=== PATIENT | female | born 1945 | race Caucasian/White ===

== ENCOUNTER 2016-10-26 12:58 | Emergency (ER) | payer MEDICARE, OTHER ==
[~2016-10-26] VITALS: Ht 162.6 cm; Wt 61.7 kg
[~2016-10-26 12:58] MED LIST: ACHD5005 PO; AGM875T PO; ALBU17AE3; ALBU8.5HRX IH; AMOX500C2 PO; ATEN50TA; Amlodipine Besylate PO; BUDE10.22 IH; BUDE180A IH; BUDE1AMP IH; CEFD300C3 PO; DARI7.5T8; DARI7.5T8 PO; DOXY-233 PO; DOXY100C2 PO; FLT22013 INH; HCT25T; HYDR-3720 PO; HYDR-757 PO; HYDR1CAP PO; IBUP-15; IBUP-30 PO; KCL10CCR; LEVA1.25 IH; LEVA1.2516; LEVA1.256 IH; LORA0.5T; LORA1TAB PO; LRT10T; METH4TAB PO; METO-272 PO; METO50TA2 PO; METO50TA7 PO; MONT10TA21 PO; MTP50T PO; ONDA8TAB9 PO; ONDAN4ODT PO; ONDN4T PO; POTA10CA43 PO; PRD10T PO; PRD20T PO; PRD5T; RT-ALBUINH; RT-ALBUINH IH; SULF1TAB38 PO; TIOT18CA; TIOT18CA INH; TRIA16.5 NS; VERA180C2 PO
--- OUTSIDE RECORDS SUMMARY | 2016-10-26 13:03 | XMS REPORT | Continuity of Care Document ---
Author Author [facility] Organization [facility] Address Unknown Phone Unavailable Care Team Providers Care Black Topper Name Role Phone Sylwia Michael PCP [phone] Source Comments Some departments are not documenting in the electronic medical record. If you do not see the information that you expected, contact Release of Information in the Health Information Management department at [phone] for further assistance in locating additional records.[facility] Active Allergies and Adverse Reactions Allergen Noted Date Severity Reactions Comments Codeine 01/23/2010 Current Medications Prescription Sig. Disp. Refills Start End Date Status Date METOPROLOL TARTRATE PO Take by mouth. Active LISINOPRIL PO Take by mouth. Active ALBUTEROL SULFATE (PROAIR Inhale by mouth. Active HFA IN) CLONIDINE HCL (CLONIDINE Take by mouth. Active PO) LEVALBUTEROL HCL (XOPENEX Inhale by mouth. Active IN) Active Problems Not on file Social History Tobacco Use Types Packs/Day Years Used Date Never Smoker Alcohol Use Drinks/Week oz/Week Comments No Last Filed Vital Signs Vital Sign Reading Time Taken Blood Pressure 154/81 01/23/2010 8:16 PM CDT Pulse 68 01/23/2010 8:16 PM CDT Temperature 36.3 C (97.3 F) 01/23/2010 6:42 PM CDT Respiratory Rate - - Height - - Weight - - Body Mass Index - - Oxygen Saturation 100% 01/23/2010 8:16 PM CDT Plan of Care Health Maintenance Due Date Last Done Comments Physical (Comprehensive) 1952 Exam Pertussis Vaccine 1956 Tetanus Vaccine 1962 Breast Cancer Screening 1985 Colorectal Cancer 1995 Screening Shingles Vaccine 2005 Osteoporosis Screening 2010 Prevnar/Pneumovax (#1) 2010 Influenza Vaccine 05/23/2016 Results from Last 3 Months Not on file
--- NOTE | 2016-10-26 13:36 | ED Cough/URI ---
General Chief Complaint: Cough/Cold/Flu Symptoms Stated Complaint: SOB/BODY ACHES Nursing Triage Note: PT STATES SHE HAS HAD BODY ACHES, NAUSEA, HEADACHE AND FATIGUE FOR ABOUT 1 WEEK. DENIES COUGH OR SOA. Source: patient Exam Limitations: no limitations History of Present Illness Time seen by provider: 13:34 Initial Comments This 71-year-old white female presents with a complaint of myalgias, nausea, headache, fatigue, and general malaise for the past week. Patient has a history of asthma. She has had no significant productive cough or shortness of breath. The patient relates that she has had similar episodes in past secondary to hypokalemia and to a urinary tract infection. The patient denies significant vomiting, diarrhea, change in medication, associated dysuria, frequency, or flank pain. Allergies and Home Medications Allergies Coded Allergies: codeine (Verified Allergy, Unknown, 03/23/08) gatifloxacin (Verified Allergy, Unknown, 03/23/08) nitrofurantoin (Verified Allergy, Unknown, 03/23/08) Home Medications 5 MG TAB #30 5 MG PO DAILY Prescribed by: ESTER MICHAEL on 10/24/14 0723 Albuterol Sulfate 8 Gm Hfa.aer.ad 2 PUFF IH QID PRN PRN SHORTNESS OF BREATH ( Reported) Albuterol Sulfate 18 Gm Hfa.aer.ad #8 (Reported) Amoxicillin 500 Mg Capsule #30 500 MG PO TID Prescribed by: ASHTYN ZHANG on 05/24/15 2141 Budesonide 180 Mcg Aer.pow.ba #1 180 MCG IH BID Prescribed by: RYAN PARDO on 08/04/15 1219 Budesonide 1 Mg/2 Ml Ampul.neb #1 1 MG IH BID Prescribed by: AZRA MCWILLIAMS on 12/11/15 0420 Cefdinir 300 Mg Capsule #20 300 MG PO BID Prescribed by: AZRA MCWILLIAMS on 12/11/15 0419 Hydrocodone Bit/Acetaminophen 1 Each Tablet 1 TAB PO Q6H PRN PRN PAIN (Reported ) Hydrocodone/Acetaminophen 1 Each Tablet #10 1 EACH PO Q4H Prescribed by: RYAN PARDO on 07/18/15 1303 Ibuprofen 200 Mg Tablet 600 MG PO BID PRN PRN PAIN (Reported) Levalbuterol HCl 1.25 Mg/3 Ml Vial.neb #216 (Reported) Levalbuterol Hcl 1.25 Mg/0.5 Ml Vial.neb 1.25 MG IH Q4H PRN PRN SHORTNESS OF BREATH (Reported) Lorazepam 1 Mg Tab 1 MG PO TID PRN PRN ANXIETY (Reported) Methylprednisolone 4 Mg Tab.ds.pk #1 4 MG PO UD Prescribed by: AZRA MCWILLIAMS on 12/11/15 0419 Metoprolol Tartrate 50 Mg Tablet 50 MG PO TID (Reported) Prednisone 20 Mg Tab #25 40 MG PO UD (Reported) FILLED 10-14-14 2 TABLETS DAILY X 5 DAYS 1.5 TABLETS DAILY X 5 DAYS 1 TABLET DAILY X 5 DAYS 1/2 TABLET DAILY X 5 DAYS Prednisone 20 Mg Tab 4Days 60 MG PO DAILY Prescribed by: ASHTYN ZHANG on 05/24/152140 Constitutional: No chills, malaise weakness EENTM: No blurred vision, No ear pain Respiratory: cough Cardiovascular: No chest pain (chronic asthmatic cough.) Gastrointestinal: No abdominal pain, No diarrhea, nauseaNo vomiting Genitourinary: No dysuria, No hematuria : No Musculoskeletal: other (diffuse myalgias.) Skin: No rash Psychiatric/Neurological: No Symptoms Reported Past Amnzchf-Nohynz-Xexpqk Hx Patient Social History Alcohol Use: Denies Use Recreational Drug Use: No Smoking Status: Former Smoker Former Smoker/When Quit: Jul 04, 1983 2nd Hand Smoke Exposure: Yes Recent Foreign Travel: No Contact w/Someone Who Travel: No Recent Infectious Disease Expo: No Recent Hopitalizations: No Seasonal Allergies Seasonal Allergies: Yes Surgeries HX Surgeries: Yes Surgeries: Appendectomy Respiratory Hx Respiratory Disorders: Yes Respiratory Disorders: Asthma Cardiovascular Hx Cardiac Disorders: Yes (SVT) Cardiac Disorders: 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, Irregular Heartbeat Neurological Hx Neurological Disorders: No Reproductive System Hx Reproductive Disorders: No Sexually Transmitted Disease: No Female Reproductive Disorders: 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 Genitourinary Hx Genitourinary Disorders: No Gastrointestinal Hx Gastrointestinal Disorders: Yes Gastrointestinal Disorders: Gastroesophageal Reflux Musculoskeletal Hx Musculoskeletal Disorders: Yes (RIGHT HUMERUS FRACTURE, R FOOT) Musculoskeletal Disorders: Fractures Endocrine Hx Endocrine Disorders: No HEENT HX ENT Disorders: No Cancer Hx Cancer: No Psychosocial Hx Psychiatric Problems: Yes Behavioral Health Disorders: Anxiety, Depression Integumentary HX Skin/Integumentary Disorder: No Blood Transfusions Hx Blood Disorders: No Reviewed Nursing Assessment Reviewed/Agree w Nursing PMH: Yes Family Medical History Family Medial History: Dementia 19 MOTHER, , Age:88, Onset:60 years & older FH: CAD (coronary artery disease) 19 FATHER, , Age:64, Onset:60 years & older FH: CHF (congestive heart failure) 19 MOTHER, , Age:88, Onset:60 years & older Myocardial infarction 19 MOTHER, , Age:88, Onset:50's - 60 No Family History of: AIDS Abdominal aortic aneurysm Saqib's disease Alcoholism Alzheimer's disease Aphasia Arthritis Asthma Cancer of mouth Cardiovascular disease Cataracts Colon cancer Completed stroke Congenital disease Congenital heart disease Coronary thrombosis Cystic fibrosis Deafness or hearing loss Diabetes mellitus Drug abuse Dysphasia Fibrocystic disease of breast Gastroenteritis Glaucoma Headache disorder Hypercholesterolemia 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 Infertility Kidney disease Neoplasm Not obtainable due to adoption Osteoporosis Parkinson's disease Prostate cancer Psychosocial problem Respiratory disorder Seizure disorder Severe allergy Thyroid disease Tuberculosis Visual disorder Physical Exam Vital Signs Vital Sign - Last 12Hours 10/26/16 10/26/16 13:08 13:13 Temp 98.3 Pulse 112 Resp 23 B/P 159/99 O2 Delivery Room Air Capillary Refill : Less Than 3 Seconds General Appearance: WD/WN no apparent distress Eyes: Bilateral Eye Normal Inspection HEENT: normal ENT inspection Respiratory: crackles rales Cardiovascular: regular rate, rhythm Gastrointestinal: normal bowel sounds soft Extremities: normal range of motion non-tender Neurologic/Psychiatric: no motor/sensory deficits alert normal mood/affect Skin: normal color warm/dry Progress/Results/Core Measures Results/Orders Lab Results Laboratory Tests Test 10/26/16 14:02 10/26/16 14:05 Range/Units Alanine Aminotransferase (ALT/SGPT) 14 0-55 U/L Albumin 4.0 3.2-4.5 G/DL Alkaline Phosphatase 82 40-136 U/L Anion Gap 10 5-14 MMOL/L Aspartate Amino Transf (AST/SGOT) 17 5-34 U/L BUN/Creatinine Ratio 13 Basophils # (Auto) 0.1 0.0-0.1 10^3/uL Basophils (%) (Auto) 1 0-10 % Blood Urea Nitrogen 11 7-18 MG/DL Calcium Level 9.8 8.5-10.1 MG/DL Carbon Dioxide Level 24 21-32 MMOL/L Chloride Level 106 98-107 MMOL/L Creatinine 0.83 0.60-1.30 MG/DL Eosinophils # (Auto) 0.6 H 0.0-0.3 10^3/uL Eosinophils (%) (Auto) 7 0-10 % Estimat Glomerular Filtration Rate > 60 Glucose Level 121 H 70-105 MG/DL Hematocrit 47 35-52 % Hemoglobin 15.9 11.5-16.0 G/DL Lymphocytes # (Auto) 2.1 1.0-4.0 X 10^3 Lymphocytes (%) (Auto) 25 12-44 % Mean Corpuscular Hemoglobin 30 25-34 PG Mean Corpuscular Hemoglobin Concent 34 32-36 G/DL Mean Corpuscular Volume 87 80-99 FL Mean Platelet Volume 9.6 7.4-10.4 FL Monocytes # (Auto) 1.1 H 0.0-1.0 X 10^3 Monocytes (%) (Auto) 13 H 0-12 % Neutrophils # (Auto) 4.5 1.8-7.8 X 10^3 Neutrophils (%) (Auto) 54 42-75 % Platelet Count 358 130-400 10^3/uL Potassium Level 3.9 3.6-5.0 MMOL/L Red Blood Count 5.34 4.35-5.85 10^6/uL Red Cell Distribution Width 13.5 10.0-14.5 % Sodium Level 140 135-145 MMOL/L Total Bilirubin 0.7 0.1-1.0 MG/DL Total Protein 6.6 6.4-8.2 G/DL White Blood Count 8.4 4.3-11.0 10^3/uL Urine Bacteria LARGE H /HPF Urine Bilirubin NEGATIVE NEGATIVE Urine Casts NONE /LPF Urine Clarity SLIGHTLY CLOUDY Urine Color YELLOW Urine Crystals NONE /LPF Urine Culture Indicated YES Urine Glucose (UA) NEGATIVE NEGATIVE Urine Ketones NEGATIVE NEGATIVE Urine Leukocyte Esterase 3+ H NEGATIVE Urine Mucus NEGATIVE /LPF Urine Nitrite POSITIVE H NEGATIVE Urine Protein 1+ H NEGATIVE Urine RBC 0-2 /HPF Urine RBC (Auto) 4+ H NEGATIVE Urine Specific [place] 1.020 1.016-1.022 Urine Squamous Epithelial Cells 0-2 /HPF Urine Urobilinogen NORMAL NORMAL MG/DL Urine WBC 25-50 H /HPF Urine pH 6 5-9 My Orders Orders-ESTER HENSLEY MD Cbc With Automated Diff (10/26/16 13:32) Comprehensive Metabolic Panel (10/26/16 13:32) Ua Culture If Indicated (10/26/16 13:32) Chest 1 View, Ap/Pa Only (10/26/16 13:32) Urine Culture (10/26/16 14:05) Vital Signs/I&O Vital Sign - Last 12Hours 10/26/16 10/26/16 13:08 13:13 Temp 98.3 Pulse 112 Resp 23 B/P 159/99 O2 Delivery Room Air Blood Pressure Mean: 119 Progress Note : Time: 15:43 Progress Note Patient's laboratory evaluation and is very significant urinary tract infection. The patient wanted to take amoxicillin for her UTI which she has used in the past. I've asked her to follow up closely with her doctor on Friday and adjust the antibiotic if necessary based on the culture and sensitivity done today. Departure Impression Impression: Primary Impression: UTI (urinary tract infection) Qualified Code: N30.00 - Acute cystitis without hematuria Disposition: HOME, SELF-CARE Condition: Improved Departure-Patient Inst. Decision time for Depature: 15:44 Referrals: ESTER MICHAEL MD (PCP/Family) Primary Care Physician Patient Instructions: Acute Cystitis (DC) Add. Discharge Instructions: Ampicillin as prescribed. Close follow up with Dr. Michael on Friday. Return if any problems or questions. All discharge instructions reviewed with patient and/or family. Voiced understanding. ESTER HENSLEY MD Oct 26, 2016 13:36
[2016-10-26 14:12] LABS: BASOPHILS # (AUTO) 0.1 10^3/uL (0.0-0.1); BASOPHILS % (AUTO) 1 % (0-10); EOSINOPHILS # (AUTO) 0.6 10^3/uL (0.0-0.3); EOSINOPHILS % (AUTO) 7 % (0-10); LYMPHOCYTES # (AUTO) 2.1 X 10^3 (1.0-4.0); LYMPHOCYTES % (AUTO) 25 % (12-44); MEAN CORPUSCULAR HEMOGLOBIN 30 PG (25-34); MEAN CORPUSCULAR HGB CONC 34 G/DL (32-36); MEAN CORPUSCULAR VOLUME 87 FL (80-99); MEAN PLATELET VOLUME 9.6 FL (7.4-10.4); MONOCYTES # (AUTO) 1.1 X 10^3 (0.0-1.0); MONOCYTES % (AUTO) 13 % (0-12); NEUTROPHILS # (AUTO) 4.5 X 10^3 (1.8-7.8); NEUTROPHILS % (AUTO) 54 % (42-75); PLATELET COUNT 358 10^3/uL (130-400); RED BLOOD COUNT 5.34 10^6/uL (4.35-5.85); RED CELL DISTRIBUTION WIDTH 13.5 % (10.0-14.5); WHITE BLOOD COUNT 8.4 10^3/uL (4.3-11.0)
[2016-10-26 14:16] LABS: BILIRUBIN,URINE NEGATIVE (NEGATIVE); KETONES,URINE NEGATIVE (NEGATIVE); LEUKOCYTE ESTERASE ,URINE 3+ (NEGATIVE); NITRITE,URINE POSITIVE (NEGATIVE); PH,URINE 6 (5-9); PROTEIN,URINE 1+ (NEGATIVE); UROBILINOGEN,URINE NORMAL (NORMAL)
[2016-10-26 14:22] LABS: SQUAMOUS EPITHELIAL CELL,UR 0-2 /HPF; WBC,URINE 25-50 /HPF
[2016-10-26 14:41] LABS: ALANINE AMINOTRANSFERASE 14 U/L (0-55); ANION GAP 10 MMOL/L (5-14); ASPARTATE AMINO TRANSFERASE 17 U/L (5-34); BILIRUBIN,TOTAL 0.7 MG/DL (0.1-1.0); BLOOD UREA NITROGEN 11 MG/DL (7-18); BUN/CREATININE RATIO 13; CALCIUM 9.8 MG/DL (8.5-10.1); CARBON DIOXIDE 24 MMOL/L (21-32); CHLORIDE 106 MMOL/L (98-107); CREATININE SERUM 0.83 MG/DL (0.60-1.30); GFR ESTIMATED > 60; GLUCOSE 121 MG/DL (70-105); POTASSIUM 3.9 MMOL/L (3.6-5.0); SODIUM 140 MMOL/L (135-145); TOTAL PROTEIN 6.6 G/DL (6.4-8.2)
[2016-10-26 15:55] VITALS: BP 159/99
--- NOTE | 2016-10-26 17:10 | Diagnostic Imaging Report ---
CLINICAL INDICATION: Patient with cough and shortness of air. Patient has history of asthma. Exam: Portable chest x-ray upright view. COMPARISON: Chest x-ray dated 05/03/2016. FINDINGS: Lungs/pleura: There is mild atelectasis versus infiltrate left lung base. The remainder of lungs are clear. There is no pneumothorax. There is no pleural effusion. Mediastinum: Unremarkable. Pulmonary vasculature: Unremarkable. Heart: There are degenerative spurs involving the thoracic spine. Bones/extrathoracic soft tissue: Unremarkable. IMPRESSION: Mild atelectasis versus infiltrate left lung base. Dictated by: Dictated on workstation # [id number]
== END 2016-10-26 15:55 | disposition home or self-care (01) ==
LOC: EDUNIT# 12:58 → ER 12:59
DX: N39.0 Urinary tract infection, site not specified (principal); R51 Headache; J45.909 Unspecified asthma, uncomplicated
CPT/HCPCS: 36415; 71010; 80053; 81000; 85025; 87077; 87088; 87186; 99283

== ENCOUNTER 2017-02-21 18:21 | Emergency (ER) | payer OTHER ==
[~2017-02-21] VITALS: Ht 162.6 cm; Wt 61.7 kg
[2017-02-21 18:43] LABS: BASOPHILS % (AUTO) 0 % (0-10); EOSINOPHILS % (AUTO) 0 % (0-10); LYMPHOCYTES # (AUTO) 1.1 X 10^3 (1.0-4.0); LYMPHOCYTES % (AUTO) 12 % (12-44); MEAN CORPUSCULAR HEMOGLOBIN 30 PG (25-34); MEAN CORPUSCULAR HGB CONC 34 G/DL (32-36); MEAN CORPUSCULAR VOLUME 88 FL (80-99); MEAN PLATELET VOLUME 9.6 FL (7.4-10.4); MONOCYTES # (AUTO) 0.1 X 10^3 (0.0-1.0); MONOCYTES % (AUTO) 1 % (0-12); NEUTROPHILS # (AUTO) 8.1 X 10^3 (1.8-7.8); NEUTROPHILS % (AUTO) 87 % (42-75); PLATELET COUNT 415 10^3/uL (130-400); RED BLOOD COUNT 5.33 10^6/uL (4.35-5.85); WHITE BLOOD COUNT 9.3 10^3/uL (4.3-11.0)
--- NOTE | 2017-02-21 18:44 | ED Cardiac General ---
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 patient reports HR dropped but came back up again Source: patient Exam Limitations: no limitations History of Present Illness Time seen by provider: 18:43 Initial Comments To ER with a sensation of lower chest pressure and palpitations which is characteristic of her previous SVT episodes. This began about one hour ago. She has a history of SVT and typically can convert herself by placing her face in a bucket of ice water. She tried that today and it did reduce her heart rate from 180-130 she states that it will not go below that. Chest pain/ pressure has resolved at this time and was only present for about 30 minutes. She took an extra metoprolol 50 mg tablet. 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: No ASA po PROPERTY CONTROLLER: No Allergies and Home Medications Allergies Coded Allergies: codeine (Verified Allergy, Unknown, 03/23/08) gatifloxacin (Verified Allergy, Unknown, 03/23/08) nitrofurantoin (Verified Allergy, Unknown, 03/23/08) Home Medications Albuterol Sulfate 8 Gm Hfa.aer.ad, 2 PUFF IH QID PRN for SHORTNESS OF BREATH, ( Reported) Albuterol Sulfate 18 Gm Hfa.aer.ad, #8 (Reported) Amoxicillin 500 Mg Capsule, 500 MG PO TID, #30 Ref 0 Prescribed by: ASHTYN ZHANG on 05/24/15 2141 Budesonide 180 Mcg Aer.pow.ba, 180 MCG IH BID, #1 Prescribed by: RYAN PARDO on 08/04/15 1219 Budesonide 1 Mg/2 Ml Ampul.neb, 1 MG IH BID, #1 Ref 0 Prescribed by: AZRA MCWILLIAMS on 12/11/15 0420 Cefdinir 300 Mg Capsule, 300 MG PO BID, #20 Prescribed by: AZRA MCWILLIAMS on 12/11/15 0419 Hydrocodone Bit/Acetaminophen 1 Each Tablet, 1 TAB PO Q6H PRN for PAIN, ( Reported) Hydrocodone/Acetaminophen 1 Each Tablet, 1 EACH PO Q4H, #10 Prescribed by: RYAN PARDO on 07/18/15 1303 Ibuprofen 200 Mg Tablet, 600 MG PO BID PRN for PAIN, (Reported) Levalbuterol HCl 1.25 Mg/3 Ml Vial.neb, #216 (Reported) Levalbuterol Hcl 1.25 Mg/0.5 Ml Vial.neb, 1.25 MG IH Q4H PRN for SHORTNESS OF BREATH, (Reported) Lorazepam 1 Mg Tab, 1 MG PO TID PRN for ANXIETY, (Reported) Methylprednisolone 4 Mg Tab.ds.pk, 4 MG PO UD, #1 Prescribed by: AZRA MCWILLIAMS on 12/11/15 0419 Metoprolol Tartrate 50 Mg Tablet, 50 MG PO TID, (Reported) Prednisone 20 Mg Tab, 40 MG PO UD, #25 (Reported) FILLED 10-14-14 2 TABLETS DAILY X 5 DAYS 1.5 TABLETS DAILY X 5 DAYS 1 TABLET DAILY X 5 DAYS 1/2 TABLET DAILY X 5 DAYS Prednisone 20 Mg Tab, 60 MG PO DAILY for 4 Days, Ref 0 Prescribed by: ASHTYN ZHANG on 05/24/15 214 [Amlodipine Besylate] 5 MG TAB, 5 MG PO DAILY, #30 Ref 11 Prescribed by: ESTER ALLRED on 10/24/14 0723 Review of Systems Constitutional: see HPI EENTM: No Symptoms Reported Respiratory: No Symptoms Reported Cardiovascular: See HPI, Chest Pain Gastrointestinal: No Symptoms Reported Genitourinary: No Symptoms Reported Musculoskeletal: no symptoms reported Skin: no symptoms reported Psychiatric/Neurological: No Symptoms Reported Endocrine: No Symptoms Reported Past Jevlmtg-Gsuqpr-Xhglrm Hx Patient Social History Alcohol Use: Denies Use Recreational Drug Use: No Former Smoker/When Quit: Jul 04, 1983 2nd Hand Smoke Exposure: Yes Recent Foreign Travel: No Contact w/Someone Who Travel: No Recent Infectious Disease Expo: No Recent Hopitalizations: No Seasonal Allergies Seasonal Allergies: Yes Surgeries HX Surgeries: Yes Surgeries: Appendectomy Respiratory Hx Respiratory Disorders: Yes Respiratory Disorders: Asthma Cardiovascular Hx Cardiac Disorders: Yes (SVT) Cardiac Disorders: 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, Irregular Heartbeat Neurological Hx Neurological Disorders: No Reproductive System Hx Reproductive Disorders: No Sexually Transmitted Disease: No Female 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 Genitourinary Hx Genitourinary Disorders: No Gastrointestinal Hx Gastrointestinal Disorders: Yes Gastrointestinal Disorders: Gastroesophageal Reflux Musculoskeletal Hx Musculoskeletal Disorders: Yes (RIGHT HUMERUS FRACTURE, R FOOT) Musculoskeletal Disorders: Fractures Endocrine Hx Endocrine Disorders: No HEENT HX ENT Disorders: No Cancer Hx Cancer: No Psychosocial Hx Psychiatric Problems: Yes Behavioral Health Disorders: Anxiety, Depression Integumentary HX Skin/Integumentary Disorder: No Blood Transfusions Hx Blood Disorders: No Family Medical History Family Medial History: Dementia 19 MOTHER, , Age:88, Onset:60 years & older FH: CAD (coronary artery disease) 19 FATHER, , Age:64, Onset:60 years & older FH: CHF (congestive heart failure) 19 MOTHER, , Age:88, Onset:60 years & older Myocardial infarction 19 MOTHER, , Age:88, Onset:50's - 60 No Family History of: AIDS Abdominal aortic aneurysm Saqib's disease Alcoholism Alzheimer's disease Aphasia Arthritis Asthma Cancer of mouth Cardiovascular disease Cataracts Colon cancer Completed stroke Congenital disease Congenital heart disease Coronary thrombosis Cystic fibrosis Deafness or hearing loss Diabetes mellitus Drug abuse Dysphasia Fibrocystic disease of breast Gastroenteritis Glaucoma Headache disorder Hypercholesterolemia 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 Infertility Kidney disease Neoplasm Not obtainable due to adoption Osteoporosis Parkinson's disease Prostate cancer Psychosocial problem Respiratory disorder Seizure disorder Severe allergy Thyroid disease Tuberculosis Visual disorder Physical Exam Vital Signs Vital Sign - Last 12Hours 02/21/17 18:28 Temp 98.2 Pulse 122 Resp 22 B/P (MAP) 202/123 Pulse Ox 96 O2 Delivery Room Air Capillary Refill : Less Than 3 Seconds General Appearance: No Apparent Distress, WD/WN HEENT: PERRL/EOMI, TMs Normal Respiratory: No Accessory Muscle Use, No Respiratory Distress Cardiovascular: Normal Peripheral Pulses, Tachycardia Gastrointestinal: Non Tender, Soft Neurologic/Psychiatric: Alert Skin: Normal Color, Warm/Dry Other comments Rates of 118 on EKG. Sinus and regular. Lopressor ordered. She is also hypertensive at 202/110. Progress/Results/Core Measures Results/Orders Lab Results Laboratory Tests Test 02/21/17 18:30 Range/Units White Blood Count 9.3 4.3-11.0 10^3/uL Red Blood Count 5.33 4.35-5.85 10^6/uL Hemoglobin 15.9 11.5-16.0 G/DL Hematocrit 47 35-52 % Mean Corpuscular Volume 88 80-99 FL Mean Corpuscular Hemoglobin 30 25-34 PG Mean Corpuscular Hemoglobin Concent 34 32-36 G/DL Red Cell Distribution Width 14.0 10.0-14.5 % Platelet Count 415 H 130-400 10^3/uL Mean Platelet Volume 9.6 7.4-10.4 FL Neutrophils (%) (Auto) 87 H 42-75 % Lymphocytes (%) (Auto) 12 12-44 % Monocytes (%) (Auto) 1 0-12 % Eosinophils (%) (Auto) 0 0-10 % Basophils (%) (Auto) 0 0-10 % Neutrophils # (Auto) 8.1 H 1.8-7.8 X 10^3 Lymphocytes # (Auto) 1.1 1.0-4.0 X 10^3 Monocytes # (Auto) 0.1 0.0-1.0 X 10^3 Eosinophils # (Auto) 0.0 0.0-0.3 10^3/uL Basophils # (Auto) 0.0 0.0-0.1 10^3/uL Neutrophils % (Manual) 86 % Lymphocytes % (Manual) 4 % Monocytes % (Manual) 1 % Basophils % (Manual) 1 % Reactive Lymphocytes 8 % Blood Morphology Comment NORMAL Prothrombin Time 12.4 12.2-14.7 SEC INR Comment 1.0 0.8-1.4 Activated Partial Thromboplast Time 29 24-35 SEC Sodium Level 143 135-145 MMOL/L Potassium Level 4.1 3.6-5.0 MMOL/L Chloride Level 106 98-107 MMOL/L Carbon Dioxide Level 21 21-32 MMOL/L Anion Gap 16 H 5-14 MMOL/L Blood Urea Nitrogen 14 7-18 MG/DL Creatinine 1.01 0.60-1.30 MG/DL Estimat Glomerular Filtration Rate 54 BUN/Creatinine Ratio 14 Glucose Level 170 H 70-105 MG/DL Calcium Level 10.2 H 8.5-10.1 MG/DL Magnesium Level 2.4 1.8-2.4 MG/DL Total Bilirubin 1.0 0.1-1.0 MG/DL Aspartate Amino Transf (AST/SGOT) 17 5-34 U/L Alanine Aminotransferase (ALT/SGPT) 20 0-55 U/L Alkaline Phosphatase 72 40-136 U/L Myoglobin 63.9 10.0-92.0 NG/ML Troponin I < 0.30 <0.30 NG/ML Total Protein 7.6 6.4-8.2 G/DL Albumin 4.3 3.2-4.5 G/DL My Orders Orders - PARDO,PETER J MEDICAL LEAD Cbc With Automated Diff (02/21/17 18:25) Magnesium (02/21/17 18:25) Chest 1 View, Ap/Pa Only (02/21/17 18:25) Ekg Tracing (02/21/17 18:25) Cardiac Profile 1 (02/21/17 18:25) Comprehensive Metabolic Panel (02/21/17 18:25) Myoglobin Serum (02/21/17 18:25) Protime With Inr (02/21/17 18:25) Partial Thromboplastin Time (02/21/17 18:25) O2 (02/21/17 18:25) Monitor-Rhythm Ecg Trace Only (02/21/17 18:25) Lipid Panel (02/22/17 06:00) Aspirin Chewable Tablet (Baby Aspirin Ch (02/21/17 18:30) Saline Lock/Iv-Start (02/21/17 18:25) Metoprolol Tartrate Injection (Lopressor (02/21/17 18:45) Ns Iv 500 Ml (Sodium Chloride 0.9%) (02/21/17 18:45) Manual Differential (02/21/17 18:30) Medications Given in ED Current Medications Medications Dose Ordered Sig/Dusty Route Start Time Stop Time Status Last Admin Dose Admin Aspirin 324 mg ONCE ONCE PO 02/21/17 18:30 02/21/17 18:31 DC 02/21/17 18:48 324 MG Metoprolol Tartrate 5 mg ONCE ONCE IV 02/21/17 18:45 02/21/17 18:46 DC 02/21/17 18:48 5 MG Vital Signs/I&O Vital Sign - Last 12Hours 02/21/17 18:28 Temp 98.2 Pulse 122 Resp 22 B/P (MAP) 202/123 Pulse Ox 96 O2 Delivery Room Air Blood Pressure Mean: 149 Diagnostic Imaging Diagonstic Imaging: Xray Comments NAME: GE [facility] REC#: [id number] PT STATUS: REG ER : 1945 PHYSICIAN: RYAN PARDO APRN ADMIT DATE: 02/21/17/ER Draft Date of Exam:02/21/17 CHEST 1 VIEW, AP/PA ONLY INDICATION: 71-year-old female with a history of supraventricular tachycardia, now having palpitations and a racing heart for about 45 minutes. COMPARISON: None available at the time of dictation. EXAMINATION: Single view of the chest was obtained. FINDINGS: The cardiac contour is normal. There are some minimal left basilar atelectatic infiltrates but no significant consolidations are seen. There are background chronic parenchymal changes. There is slight tortuosity of the thoracic aorta including the ascending segment. There Is no effusion or pneumothorax. Soft tissues and bony thorax are normal. IMPRESSION: 1. Slight prominence of the ascending segment of the thoracic aorta. This may demonstrate some mild ectasia, however, poststenotic dilatation from aortic stenosis can present similarly. 2. Minimal left basilar atelectatic infiltrates. Dictated on workstation # [id number] Dict: 02/21/17 1848 Trans: 02/21/17 1855 [facility] [id number] Interpreted by: GABRIEL ADAMS MD Electronically signed by: Departure Impression Impression: Primary Impression: Tachycardia Disposition: 01 HOME, SELF-CARE Condition: Stable Departure-Patient Inst. Decision time for Depature: 19:59 Referrals: ESTER ALLRED MD (PCP/Family) Primary Care Physician Patient Instructions: Paroxysmal Supraventricular Tachycardia (DC) Add. Discharge Instructions: 1. Return to ER for any recurrent chest pain 2. Follow-up with your doctor next week 3. All discharge instructions reviewed with patient and/or family. Voiced understanding. RYAN PARDO MEDICAL LEAD Feb 21, 2017 18:44
[2017-02-21] MEDS: NS IV 500 ML 500 ML IV SCH (18:48)
[2017-02-21] MEDS: meTOprolol 5 MG/5 ML (LOPRESSOR) VIAL IV ONE (18:48)
[2017-02-21] MEDS: ASPIRIN 81 MG CHEW (CHILDREN'S ASA) PO ONE (18:48)
[2017-02-21 18:54] LABS: PROTHROMBIN TIME PATIENT 12.4 SEC (12.2-14.7)
--- NOTE | 2017-02-21 18:55 | Diagnostic Imaging Report ---
INDICATION: 71-year-old female with a history of supraventricular tachycardia, now having palpitations and a racing heart for about 45 minutes. COMPARISON: None available at the time of dictation. EXAMINATION: Single view of the chest was obtained. FINDINGS: The cardiac contour is normal. There are some minimal left basilar atelectatic infiltrates but no significant consolidations are seen. There are background chronic parenchymal changes. There is slight tortuosity of the thoracic aorta including the ascending segment. There Is no effusion or pneumothorax. Soft tissues and bony thorax are normal. IMPRESSION: 1. Slight prominence of the ascending segment of the thoracic aorta. This may demonstrate some mild ectasia, however, poststenotic dilatation from aortic stenosis can present similarly. 2. Minimal left basilar atelectatic infiltrates. Dictated by: Dictated on workstation # [id number]
[2017-02-21 18:58] LABS: BASOPHILS % (MANUAL) 1 %; LYMPHOCYTES % (MANUAL) 4 %; NEUTROPHILS % (MANUAL) 86 %; REACTIVE LYMPHOCYTES 8 %
[2017-02-21 19:04] LABS: ALANINE AMINOTRANSFERASE 20 U/L (0-55); ALBUMIN 4.3 G/DL (3.2-4.5); ANION GAP 16 MMOL/L (5-14); ASPARTATE AMINO TRANSFERASE 17 U/L (5-34); BLOOD UREA NITROGEN 14 MG/DL (7-18); BUN/CREATININE RATIO 14; CALCIUM 10.2 MG/DL (8.5-10.1); CARBON DIOXIDE 21 MMOL/L (21-32); CHLORIDE 106 MMOL/L (98-107); CREATININE SERUM 1.01 MG/DL (0.60-1.30); GFR ESTIMATED 54; GLUCOSE 170 MG/DL (70-105); MAGNESIUM 2.4 MG/DL (1.8-2.4); POTASSIUM 4.1 MMOL/L (3.6-5.0); SODIUM 143 MMOL/L (135-145); TOTAL PROTEIN 7.6 G/DL (6.4-8.2)
[2017-02-21 19:11] LABS: MYOGLOBIN SERUM 63.9 NG/ML (10.0-92.0)
[2017-02-21 20:07] VITALS: BP 152/75
== END 2017-02-21 20:08 | disposition home or self-care (01) ==
LOC: EDUNIT# 18:21 → ER 18:23
DX: R00.0 Tachycardia, unspecified (principal); I10 Essential (primary) hypertension; Z79.899 Other long term (current) drug therapy
CPT/HCPCS: 36415; 71010; 80053; 83735; 83874; 84484; 85007; 85027; 85610; 85730; 93041

== ENCOUNTER 2017-08-03 08:33 | Emergency (ER) | payer OTHER ==
[~2017-08-03] VITALS: Ht 162.6 cm; Wt 65.8 kg
--- OUTSIDE RECORDS SUMMARY | 2017-08-03 08:44 | XMS REPORT | Clinical Summary ---
Author Author [facility] Organization [facility] Address Unknown Phone Unavailable Care Team Providers Care Card Scraper Name Role Phone PCP Unavailable Source Comments Some departments are not documenting in the electronic medical record. If you do not see the information that you expected, contact Release of Information in the Health Information Management department at [phone] for further assistance in locating additional records.[facility] Allergies Active Allergy Reactions Severity Noted Date Comments Codeine 01/23/2010 Current Medications Prescription Sig. [...] Smoker Alcohol Use Drinks/Week oz/Week Comments No Sex Assigned at Date Recorded Not on file Last Filed Vital Signs Vital Sign Reading Time Taken Blood Pressure 154/81 01/23/2010 8:16 PM CDT Pulse 68 01/23/2010 8:16 PM CDT Temperature 36.3 C (97.3 F) 01/23/2010 6:42 PM CDT Respiratory Rate - - Oxygen Saturation 100% 01/23/2010 8:16 PM CDT Inhaled Oxygen - - Concentration Weight - - Height - - Body Mass Index - - Plan of Treatment Health Maintenance Due Date Last Done Comments HEPATITIS C SCREENING 1945 PHYSICAL (COMPREHENSIVE) 1952 EXAM PERTUSSIS VACCINE 1956 TETANUS VACCINE 1962 BREAST CANCER SCREENING 1985 COLORECTAL CANCER 1995 SCREENING SHINGLES VACCINE 2005 OSTEOPOROSIS SCREENING 2010 PREVNAR/PNEUMOVAX (#1) 2010 INFLUENZA VACCINE 04/22/2017 Results Not on filefrom Last 3 Months
[2017-08-03] MEDS ORDERED: RT-ALBUTEROL/IPRATROPIUM 3 ML (DUONEB) VIAL INH ONE (10:30)
--- NOTE | 2017-08-03 11:15 | Diagnostic Imaging Report ---
Clinical indication: Patient with elevated blood pressure since last night. Patient has shortness of air this morning. Patient has history of asthma. Exam: Chest x-ray PA and lateral views. Comparisons: Chest x-ray dated 02/21/2017. Findings: Lungs/pleura: Stable mild scarring in the lateral left lung base. Otherwise, lungs are clear. There is no pneumothorax. There is no pleural effusion. Mediastinum: Unremarkable. Pulmonary vasculature: Unremarkable. Heart: Unremarkable. Bones/extrathoracic soft tissue: There are mildly hypertrophic degenerative osteophytes scattered throughout the thoracic spine. Again seen, dextroscoliosis of the lumbar spine. Impression: Stable chest x-ray exam with no interval radiographic evidence of acute cardiopulmonary process. Dictated by: Dictated on workstation # [id number]
[2017-08-03] MEDS: cloNIDine 0.1 MG (CATAPRES) TAB PO ONE ×2 (11:16→11:17)
--- NOTE | 2017-08-03 11:27 | ED General ---
General Chief Complaint: Cardiac/General Problems Stated Complaint: HIGH BP, SOB Nursing Triage Note: PT C/O CONGESTION X 1 WEEK WITH HYPERTENSION STARTING YESTERDAY. CHRONIC SOA D/T ASTHMA. COMPLETED A ROUND OF PREDNISONE A FEW DAYS AGO. TOOK AN EXTRA METOPROLOL LAST NIGHT. Nursing Sepsis Screen: No Definite Risk Source of Information: Patient Exam Limitations: No Limitations History of Present Illness Time Seen by Provider: 11:25 Initial Comments To ER with a headache and hypertension as well as nasal congestion. This began yesterday and she was unable to get her blood pressure down. It went as high as 215/100 last night so she took an extra metoprolol 50 mg and it still didn't come down. She presents here this morning for an occipital and frontal headache. She was seen by her tow feeder last week and given a prescription for prednisone and amoxicillin for this nasal congestion/sinus pressure. She denies any relief of the nasal congestion or sinus pressure. Upon my arrival to the room her blood pressure down to 146/95 without treatment from us and her occipital headache is gone. She still has a frontal headache. Timing/Duration: 1-2 Days Severity: Moderate Associated Systoms: Headaches Allergies and Home Medications Allergies Coded Allergies: codeine (Verified Allergy, Unknown, 03/23/08) gatifloxacin (Verified Allergy, Unknown, 03/23/08) nitrofurantoin (Verified Allergy, Unknown, 03/23/08) Home Medications Albuterol Sulfate 8 Gm Hfa.aer.ad, 2 PUFF IH QID PRN for SHORTNESS OF BREATH, ( Reported) Hydrocodone Bit/Acetaminophen 1 Each Tablet, 1 TAB PO Q6H PRN for PAIN, ( Reported) Ibuprofen 200 Mg Tablet, 600 MG PO BID PRN for PAIN, (Reported) Levalbuterol Hcl 1.25 Mg/0.5 Ml Vial.neb, 1.25 MG IH Q4H PRN for SHORTNESS OF BREATH, (Reported) Lorazepam 1 Mg Tab, 1 MG PO TID PRN for ANXIETY, (Reported) Metoprolol Tartrate 50 Mg Tablet, 50 MG PO TID, (Reported) Constitutional: see HPI EENTM: see HPI, nose congestion Respiratory: no symptoms reported Cardiovascular: no symptoms reported Genitourinary: no symptoms reported Musculoskeletal: no symptoms reported Skin: no symptoms reported Psychiatric/Neurological: See HPI, Headache Hematologic/Lymphatic: No Symptoms Reported Past Mfqkqxq-Qntxot-Dgvxqk Hx Patient Social History Alcohol Use: Denies Use Recreational Drug Use: No Smoking Status: Former Smoker 2nd Hand Smoke Exposure: Yes Recent Foreign Travel: No Contact w/Someone Who Travel: No Recent Infectious Disease Expo: No Recent Hopitalizations: No Seasonal Allergies Seasonal Allergies: Yes Surgeries History of Surgeries: Yes Surgeries: Appendectomy Respiratory History of Respiratory Disorde: Yes Respiratory Disorders: Asthma Cardiovascular History of Cardiac Disorders: Yes (SVT) Cardiac Disorders: 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, Irregular Heartbeat Neurological History of Neurological Disord: No Reproductive System Hx Reproductive Disorders: No Sexually Transmitted Disease: No Female Reproductive Disorders: 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 Gastrointestinal History of Gastrointestinal Di: Yes Gastrointestinal Disorders: Gastroesophageal Reflux Musculoskeletal History of Musculoskeletal Dis: Yes (RIGHT HUMERUS FRACTURE, R FOOT) Musculoskeletal Disorders: Fractures Endocrine History of Endocrine Disorders: No Cancer History of Cancer: No Psychosocial History of Psychiatric Problem: Yes Behavioral Health Disorders: Anxiety, Depression Integumentary History of Skin or Integumenta: No Blood Transfusions History of Blood Disorders: No Family Medical History Family Medial History: Dementia 19 MOTHER, , Age:88, Onset:60 years & older FH: CAD (coronary artery disease) 19 FATHER, , Age:64, Onset:60 years & older FH: CHF (congestive heart failure) 19 MOTHER, , Age:88, Onset:60 years & older Myocardial infarction 19 MOTHER, , Age:88, Onset:50's - 60 No Family History of: AIDS Abdominal aortic aneurysm Saqib's disease Alcoholism Alzheimer's disease Aphasia Arthritis Asthma Cancer of mouth Cardiovascular disease Cataracts Colon cancer Completed stroke Congenital disease Congenital heart disease Coronary thrombosis Cystic fibrosis Deafness or hearing loss Diabetes mellitus Drug abuse Dysphasia Fibrocystic disease of breast Gastroenteritis Glaucoma Headache disorder Hypercholesterolemia 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 Infertility Kidney disease Neoplasm Not obtainable due to adoption Osteoporosis Parkinson's disease Prostate cancer Psychosocial problem Respiratory disorder Seizure disorder Severe allergy Thyroid disease Tuberculosis Visual disorder Physical Exam Vital Signs Vital Sign - Last 12Hours 08/03/17 08/03/17 08:50 10:36 Temp 98.7 Pulse 68 Resp 18 B/P (MAP) 187/108 Pulse Ox 100 O2 Delivery Room Air Capillary Refill : Less Than 3 Seconds General Appearance: No Apparent Distress, WD/WN Eyes: Bilateral Eye Normal Inspection, Bilateral Eye PERRL, Bilateral Eye EOMI HEENT: PERRL/EOMI, TMs Normal, Other (nasal congestion,) Neck: Full Range of Motion, Normal Inspection Respiratory: Chest Non Tender, Lungs Clear, Normal Breath Sounds, No Accessory Muscle Use, No Respiratory Distress Cardiovascular: Regular Rate, Rhythm, Normal Peripheral Pulses Gastrointestinal: Non Tender Extremity: Normal Capillary Refill, Normal Inspection Neurologic/Psychiatric: Alert, Oriented x3, No Motor/Sensory Deficits Skin: Normal Color, Warm/Dry Progress/Results/Core Measures Results/Orders My Orders Orders - RYAN PARDO APRN Clonidine Tablet (Catapres Tablet) (08/03/17 11:00) Chest Pa/Lat (2 View) (08/03/17 10:53) Ibuprofen Tablet (Motrin Tablet) (08/03/17 11:30) Medications Given in ED Current Medications Medications Dose Ordered Sig/Dusty Route Start Time Stop Time Status Last Admin Dose Admin Albuterol/ Ipratropium 3 ml ONCE ONCE INH 08/03/17 10:30 08/03/17 10:31 DC 08/03/17 10:35 3 ML Vital Signs/I&O Vital Sign - Last 12Hours 08/03/17 08/03/17 08:50 10:36 Temp 98.7 Pulse 68 Resp 18 B/P (MAP) 187/108 Pulse Ox 100 O2 Delivery Room Air Room Air Blood Pressure Mean: 134 Departure Impression Impression: Primary Impression: Labile hypertension Additional Impression: Nasal congestion Disposition: 01 HOME, SELF-CARE Condition: Stable Departure-Patient Inst. Decision time for Depature: 11:27 Referrals: ESTER ALLRED MD (PCP/Family) Primary Care Physician Patient Instructions: NO INSTRUCTIONS GIVEN Add. Discharge Instructions: 1. Return to ER for any concerns 2. Follow-up with your doctor later this week 4. All discharge instructions reviewed with patient and/or family. Voiced understanding. RYAN APRDO APRN Aug 03, 2017 11:27
[2017-08-03] MEDS ORDERED: IBUPROFEN 800 MG (MOTRIN) TAB PO ONE (11:30)
[2017-08-03 11:41] VITALS: BP 137/102
== END 2017-08-03 11:41 | disposition home or self-care (01) ==
LOC: EDUNIT# 08:33 → ER 08:36
DX: I10 Essential (primary) hypertension (principal); R09.81 Nasal congestion; J45.909 Unspecified asthma, uncomplicated; K21.9 Gastro-esophageal reflux disease without esophagitis; F32.9 Major depressive disorder, single episode, unspecified; F41.9 Anxiety disorder, unspecified; Z82.49 Family history of ischemic heart disease and other diseases of the circulatory system; Z87.891 Personal history of nicotine dependence; Z90.49 Acquired absence of other specified parts of digestive tract
CPT/HCPCS: 71020; 93005; 94640

== ENCOUNTER 2017-08-19 07:33 | Emergency (ER) | payer OTHER ==
[~2017-08-19] VITALS: Ht 162.6 cm; Wt 63.5 kg
[2017-08-19] MEDS ORDERED: RT-IPRATROPIUM (ATROVENT) 0.5MG/2.5ML AMP IH ONE (07:45)
[2017-08-19] MEDS ORDERED: RT-LEVALBUTEROL (XOPENEX) 1.25 MG/3 ML NEB NON-FORMULARY INH ONE (07:45)
--- NOTE | 2017-08-19 08:03 | ED Respiratory ---
General Chief Complaint: Respiratory Problems Stated Complaint: SOA Source: patient Exam Limitations: no limitations History of Present Illness Time seen by provider: 07:36 Initial Comments This 72-year-old woman with COPD presents to the emergency room with complaints of shortness of air and wheezing unrelieved by her Xopenex treatment at home. She is presently under treatment for bronchitis. She is taking amoxicillin and prednisone which she started yesterday. She took her second dose of prednisone this morning. She's had some productive cough but no fever. She has sinus congestion and drainage as well. Oxygen saturation was 88 percent on room air. Allergies and Home Medications Allergies Coded Allergies: codeine (Verified Allergy, Unknown, 03/23/08) gatifloxacin (Verified Allergy, Unknown, 03/23/08) nitrofurantoin (Verified Allergy, Unknown, 03/23/08) Home Medications Albuterol Sulfate 8 Gm Hfa.aer.ad, 2 PUFF IH QID PRN for SHORTNESS OF BREATH, ( Reported) Hydrocodone Bit/Acetaminophen 1 Each Tablet, 1 TAB PO Q6H PRN for PAIN, ( Reported) Ibuprofen 200 Mg Tablet, 600 MG PO BID PRN for PAIN, (Reported) Ipratropium [place] 0.2 Mg/1 Ml Solution, 0.5 MG IH Q6H PRN for SHORTNESS OF BREATH, #30 May mix with Xopenex Prescribed by: MONTSERRAT SANTOS on 08/19/17 0919 Levalbuterol Hcl 1.25 Mg/0.5 Ml Vial.neb, 1.25 MG IH Q4H PRN for SHORTNESS OF BREATH, (Reported) Lorazepam 1 Mg Tab, 1 MG PO TID PRN for ANXIETY, (Reported) Metoprolol Tartrate 50 Mg Tablet, 50 MG PO TID, (Reported) Constitutional: no symptoms reported EENTM: see HPI Respiratory: see HPI Cardiovascular: no symptoms reported Gastrointestinal: no symptoms reported Genitourinary: no symptoms reported : No Musculoskeletal: no symptoms reported Skin: no symptoms reported Psychiatric/Neurological: No Symptoms Reported Hematologic/Lymphatic: No Symptoms Reported Immunological/Allergic: no symptoms reported Past Yknuhqp-Ndqpoc-Fnmrke Hx Patient Social History 2nd Hand Smoke Exposure: Yes Recent Foreign Travel: No Contact w/Someone Who Travel: No Recent Hopitalizations: No Seasonal Allergies Seasonal Allergies: Yes Surgeries History of Surgeries: Yes Surgeries: Appendectomy Respiratory History of Respiratory Disorde: Yes Respiratory Disorders: Asthma, COPD Cardiovascular History of Cardiac Disorders: Yes (SVT) Cardiac Disorders: 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, Irregular Heartbeat Neurological History of Neurological Disord: No Reproductive System Hx Reproductive Disorders: No Sexually Transmitted Disease: No Female Reproductive Disorders: 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 Gastrointestinal History of Gastrointestinal Di: Yes Gastrointestinal Disorders: Gastroesophageal Reflux Musculoskeletal History of Musculoskeletal Dis: Yes (RIGHT HUMERUS FRACTURE, R FOOT) Musculoskeletal Disorders: Fractures Endocrine History of Endocrine Disorders: No HEENT History of HEENT Disorders: No Cancer History of Cancer: No Psychosocial History of Psychiatric Problem: Yes Behavioral Health Disorders: Anxiety, Depression Integumentary History of Skin or Integumenta: No Blood Transfusions History of Blood Disorders: No Family Medical History Family Medial History: Dementia 19 MOTHER, , Age:88, Onset:60 years & older FH: CAD (coronary artery disease) 19 FATHER, , Age:64, Onset:60 years & older FH: CHF (congestive heart failure) 19 MOTHER, , Age:88, Onset:60 years & older Myocardial infarction 19 MOTHER, , Age:88, Onset:50's - 60 No Family History of: AIDS Abdominal aortic aneurysm Woodruff's disease Alcoholism Alzheimer's disease Aphasia Arthritis Asthma Cancer of mouth Cardiovascular disease Cataracts Colon cancer Completed stroke Congenital disease Congenital heart disease Coronary thrombosis Cystic fibrosis Deafness or hearing loss Diabetes mellitus Drug abuse Dysphasia Fibrocystic disease of breast Gastroenteritis Glaucoma Headache disorder Hypercholesterolemia 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 Infertility Kidney disease Neoplasm Not obtainable due to adoption Osteoporosis Parkinson's disease Prostate cancer Psychosocial problem Respiratory disorder Seizure disorder Severe allergy Thyroid disease Tuberculosis Visual disorder Physical Exam Vital Signs Vital Sign - Last 12Hours 08/19/17 08/19/17 07:35 07:40 Temp 98.4 Pulse 90 Resp 22 B/P (MAP) 215/93 Pulse Ox 89 O2 Delivery Room Air O2 Flow Rate 2.00 Capillary Refill : General Appearance: WD/WN, no apparent distress HEENT: PERRL/EOMI, normal ENT inspection Neck: normal inspection Respiratory: no respiratory distress, no accessory muscle use, wheezing Cardiovascular: regular rate, rhythm, no edema, no murmur Extremities: normal inspection, no pedal edema Neurologic/Psychiatric: foreign law consultant II-XII nml as tested, no motor/sensory deficits, alert, normal mood/affect, oriented x 3 Skin: normal color, warm/dry Progress/Results/Core Measures Suspected Sepsis SIRS Temperature: Pulse: Respiratory Rate: Laboratory Tests 08/19/17 08:24: White Blood Count 15.4H Blood Pressure / Mean: Laboratory Tests 08/19/17 08:24: Creatinine 0.78, Platelet Count 359 Results/Orders Lab Results Laboratory Tests Test 08/19/17 08:24 Range/Units White Blood Count 15.4 H 4.3-11.0 10^3/uL Red Blood Count 5.26 4.35-5.85 10^6/uL Hemoglobin 15.9 11.5-16.0 G/DL Hematocrit 48 35-52 % Mean Corpuscular Volume 91 80-99 FL Mean Corpuscular Hemoglobin 30 25-34 PG Mean Corpuscular Hemoglobin Concent 33 32-36 G/DL Red Cell Distribution Width 13.7 10.0-14.5 % Platelet Count 359 130-400 10^3/uL Mean Platelet Volume 9.6 7.4-10.4 FL Neutrophils (%) (Auto) 70 42-75 % Lymphocytes (%) (Auto) 15 12-44 % Monocytes (%) (Auto) 9 0-12 % Eosinophils (%) (Auto) 5 0-10 % Basophils (%) (Auto) 0 0-10 % Neutrophils # (Auto) 10.8 H 1.8-7.8 X 10^3 Lymphocytes # (Auto) 2.4 1.0-4.0 X 10^3 Monocytes # (Auto) 1.4 H 0.0-1.0 X 10^3 Eosinophils # (Auto) 0.8 H 0.0-0.3 10^3/uL Basophils # (Auto) 0.0 0.0-0.1 10^3/uL Neutrophils % (Manual) 71 % Lymphocytes % (Manual) 13 % Monocytes % (Manual) 11 % Eosinophils % (Manual) 5 % Basophils % (Manual) 0 % Band Neutrophils 0 % Blood Morphology Comment NORMAL Sodium Level 141 135-145 MMOL/L Potassium Level 4.3 3.6-5.0 MMOL/L Chloride Level 104 98-107 MMOL/L Carbon Dioxide Level 28 21-32 MMOL/L Anion Gap 9 5-14 MMOL/L Blood Urea Nitrogen 14 7-18 MG/DL Creatinine 0.78 0.60-1.30 MG/DL Estimat Glomerular Filtration Rate > 60 BUN/Creatinine Ratio 18 Glucose Level 101 70-105 MG/DL Calcium Level 10.2 H 8.5-10.1 MG/DL C-Reactive Protein High Sensitivity 0.43 0.00-0.50 MG/DL My Orders Orders - MONTSERRAT JESSICA MD Chest Pa/Lat (2 View) (08/19/17 07:40) Basic Metabolic Panel (08/19/17 07:40) Cbc With Automated Diff (08/19/17 07:40) Hs C Reactive Protein (08/19/17 07:40) Saline Lock/Iv-Start (08/19/17 07:40) O2 (08/19/17 07:40) Monitor-Rhythm Ecg Trace Only (08/19/17 07:40) Ipratropium 0.02% Neb Solution (Atrovent (08/19/17 07:45) Levalbuterol (Non-Formulary) (Xopenex (N (08/19/17 07:45) Svn Sm Volume Nebulizer Rt-Rfs (08/19/17 07:40) Manual Differential (08/19/17 08:24) Medications Given in ED Current Medications Medications Dose Ordered Sig/Dusty Route Start Time Stop Time Status Last Admin Dose Admin Ipratropium [place] 0.5 mg ONCE ONCE IH 08/19/17 07:45 08/19/17 07:46 DC 08/19/17 08:02 0.5 MG Levalbuterol HCl 1.25 mg ONCE ONCE INH 08/19/17 07:45 08/19/17 07:46 DC 08/19/17 08:02 1.25 MG Vital Signs/I&O Vital Sign - Last 12Hours 08/19/17 08/19/17 08/19/17 07:35 07:40 08:03 Temp 98.4 Pulse 90 Resp 22 B/P (MAP) 215/93 Pulse Ox 89 95 94 O2 Delivery Room Air Nasal Cannula Nasal Cannula O2 Flow Rate 2.00 1.50 Capillary Refill : Progress Note #1: Time: 08:03 Progress Note X-ray and labs are pending. Patient is receiving a combination of Xopenex and ipratropium. She has adverse reaction to albuterol. Progress Note #2: Time: 09:13 Progress Note Workup was unremarkable except for leukocytosis which is likely related to steroid use. Patient was feeling improved and ready to go home after Xopenex and ipratropium treatments. Ipratropium was prescribed to add to her Xopenex treatments at home. She was maintaining oxygen saturation of 91 percent on room air. Diagnostic Imaging Diagonstic Imaging: Xray Plain Films/CT/US/NM/MRI: chest Comments Chest x-ray viewed by me and report reviewed. See report below: NAME: GE [facility]IE [facility] REC#: [id number] PT STATUS: REG ER : 1945 PHYSICIAN: MONTSERRAT JESSICA MD ADMIT DATE: 08/19/17/ER Signed Date of Exam: 08/19/17 CHEST PA/LAT (2 VIEW) PA and lateral views of the chest. INDICATION: Cough. Wheezing. FINDINGS: The lungs are hyperinflated. The heart size is normal. No effusion or pneumothorax. The mediastinum and diya appear unremarkable. Scoliosis of the thoracic spine is seen. IMPRESSION: Hyperinflated clear lungs. Dictated by: Dictated on workstation # [id number] Dict: 08/19/1744 Trans: 08/19/1749 Interpreted by: HOLLI ALAS MD Electronically signed by: HOLLI ALAS MD 08/19/1749 Departure Impression Impression: Primary Impression: Bronchitis Additional Impression: COPD exacerbation Disposition: 01 HOME, SELF-CARE Condition: Improved Departure-Patient Inst. Decision time for Depature: 09:13 Referrals: ESTER ALLRED MD (PCP/Family) Primary Care Physician Patient Instructions: Acute Bronchitis, Adult (DC), Chronic Obstructive Pulmonary Disease (COPD), Including Emphysema Add. Discharge Instructions: Continue with your other prescribed medications as previously directed. Add ipratropium as prescribed. Return to the ER if symptoms worsen again or if you develop new symptoms such as fever. All discharge instructions reviewed with patient and/or family. Voiced understanding. Scripts Ipratropium [place] (Ipratropium [place]) 0.2 Mg/1 Ml Solution 0.5 MG IH Q6H Y for SHORTNESS OF BREATH, #30 EA May mix with Xopenex Prov: MONTSERRAT JESSICA MD 08/19/17 Copy Copies To 1: ALLREDESTER URBAN MD, JOSHUA T MD Aug 19, 2017 08:03
[2017-08-19 08:34] LABS: BASOPHILS % (AUTO) 0 % (0-10); EOSINOPHILS # (AUTO) 0.8 10^3/uL (0.0-0.3); EOSINOPHILS % (AUTO) 5 % (0-10); LYMPHOCYTES # (AUTO) 2.4 X 10^3 (1.0-4.0); LYMPHOCYTES % (AUTO) 15 % (12-44); MEAN CORPUSCULAR HEMOGLOBIN 30 PG (25-34); MEAN CORPUSCULAR HGB CONC 33 G/DL (32-36); MEAN CORPUSCULAR VOLUME 91 FL (80-99); MEAN PLATELET VOLUME 9.6 FL (7.4-10.4); MONOCYTES # (AUTO) 1.4 X 10^3 (0.0-1.0); MONOCYTES % (AUTO) 9 % (0-12); NEUTROPHILS # (AUTO) 10.8 X 10^3 (1.8-7.8); NEUTROPHILS % (AUTO) 70 % (42-75); PLATELET COUNT 359 10^3/uL (130-400); RED BLOOD COUNT 5.26 10^6/uL (4.35-5.85); RED CELL DISTRIBUTION WIDTH 13.7 % (10.0-14.5); WHITE BLOOD COUNT 15.4 10^3/uL (4.3-11.0)
[2017-08-19 08:48] LABS: ANION GAP 9 MMOL/L (5-14); BLOOD UREA NITROGEN 14 MG/DL (7-18); BUN/CREATININE RATIO 18; CALCIUM 10.2 MG/DL (8.5-10.1); CARBON DIOXIDE 28 MMOL/L (21-32); CHLORIDE 104 MMOL/L (98-107); CREATININE SERUM 0.78 MG/DL (0.60-1.30); GFR ESTIMATED > 60; GLUCOSE 101 MG/DL (70-105); POTASSIUM 4.3 MMOL/L (3.6-5.0); SODIUM 141 MMOL/L (135-145); hs C REACTIVE PROTEIN 0.43 MG/DL (0.00-0.50)
--- NOTE | 2017-08-19 08:49 | Diagnostic Imaging Report ---
PA and lateral views of the chest. INDICATION: Cough. Wheezing. FINDINGS: The lungs are hyperinflated. The heart size is normal. No effusion or pneumothorax. The mediastinum and diya appear unremarkable. Scoliosis of the thoracic spine is seen. IMPRESSION: Hyperinflated clear lungs. Dictated by: Dictated on workstation # [id number]
[2017-08-19 08:53] LABS: BAND NEUTROPHILS 0 %; BASOPHILS % (MANUAL) 0 %; EOSINOPHILS % (MANUAL) 5 %; LYMPHOCYTES % (MANUAL) 13 %; NEUTROPHILS % (MANUAL) 71 %
[2017-08-19] MEDS ORDERED: IPRA0.2S51 IH (09:19)
[2017-08-19 09:26] VITALS: BP 192/90
== END 2017-08-19 09:26 | disposition home or self-care (01) ==
LOC: EDUNIT# 07:33 → ER 07:35
DX: J44.1 Chronic obstructive pulmonary disease with (acute) exacerbation (principal); I10 Essential (primary) hypertension; K21.9 Gastro-esophageal reflux disease without esophagitis; F41.9 Anxiety disorder, unspecified; F32.9 Major depressive disorder, single episode, unspecified; Z82.49 Family history of ischemic heart disease and other diseases of the circulatory system; Z77.22 Contact with and (suspected) exposure to environmental tobacco smoke (acute) (chronic); Z90.89 Acquired absence of other organs
CPT/HCPCS: 36415; 71020; 80048; 85007; 85027; 86141; 93041; 94640; 94664

== ENCOUNTER 2017-12-12 20:38 | Observation (INO) | payer OTHER, MEDICARE ==
[~2017-12-12] VITALS: Ht 162.6 cm; Wt 65.8 kg
[~2017-12-12 20:38] MED LIST changes: +IPRA0.2S51 IH
--- OUTSIDE RECORDS SUMMARY | 2017-12-12 20:43 | XMS REPORT | Clinical Summary ---
Author Author [facility] Organization [facility] Address Unknown Phone Unavailable Care Team Providers Care C D Area Supervisor Name Role Phone Tim Michael MD PCP Vale Pappas RN Unavailable Unavailable Source Comments Some departments are not documenting in the electronic medical record. If you do not see the information that you expected, contact Release of Information in the Health Information Management department at [phone] for further assistance in locating additional records.[facility] Allergies Active Allergy Reactions Severity Noted Date [...] SCREENING 2010 PREVNAR/PNEUMOVAX (#1) 2010 INFLUENZA VACCINE 06/22/2018 Results Not on filefrom Last 3 Months
[2017-12-12 21:27] LABS: BASOPHILS # (AUTO) 0.1 10^3/uL (0.0-0.1); BASOPHILS % (AUTO) 1 % (0-10); EOSINOPHILS # (AUTO) 1.2 10^3/uL (0.0-0.3); EOSINOPHILS % (AUTO) 12 % (0-10); HEMATOCRIT 48 % (35-52); HEMOGLOBIN 16.4 G/DL (11.5-16.0); LYMPHOCYTES # (AUTO) 2.2 X 10^3 (1.0-4.0); LYMPHOCYTES % (AUTO) 23 % (12-44); MEAN CORPUSCULAR HEMOGLOBIN 30 PG (25-34); MEAN CORPUSCULAR HGB CONC 34 G/DL (32-36); MEAN CORPUSCULAR VOLUME 89 FL (80-99); MEAN PLATELET VOLUME 9.5 FL (7.4-10.4); MONOCYTES # (AUTO) 1.3 X 10^3 (0.0-1.0); MONOCYTES % (AUTO) 13 % (0-12); NEUTROPHILS # (AUTO) 5.1 X 10^3 (1.8-7.8); NEUTROPHILS % (AUTO) 52 % (42-75); PLATELET COUNT 371 10^3/uL (130-400); RED BLOOD COUNT 5.44 10^6/uL (4.35-5.85); RED CELL DISTRIBUTION WIDTH 13.6 % (10.0-14.5); WHITE BLOOD COUNT 9.9 10^3/uL (4.3-11.0)
[2017-12-12] MEDS ORDERED: LABETALOL HCL 20 MG/4 ML VIAL IV ONE (21:45)
[2017-12-12 21:48] LABS: ALANINE AMINOTRANSFERASE 19 U/L (0-55); ALBUMIN 4.3 GM/DL (3.2-4.5); ALKALINE PHOSPHATASE 77 U/L (40-136); BUN/CREATININE RATIO 12; CALCIUM 10.7 MG/DL (8.5-10.1); CARBON DIOXIDE 29 MMOL/L (21-32); CHLORIDE 105 MMOL/L (98-107); CREATININE SERUM 0.77 MG/DL (0.60-1.30); GFR ESTIMATED > 60; GLUCOSE 93 MG/DL (70-105); POTASSIUM 4.2 MMOL/L (3.6-5.0); SODIUM 142 MMOL/L (135-145); TOTAL PROTEIN 7.1 GM/DL (6.4-8.2)
[2017-12-12 21:59] LABS: BILIRUBIN,URINE NEGATIVE (NEGATIVE); CLARITY,URINE CLEAR; COLOR,URINE YELLOW; GLUCOSE, URINE (UA) NEGATIVE (NEGATIVE); KETONES,URINE NEGATIVE (NEGATIVE); LEUKOCYTE ESTERASE ,URINE 2+ (NEGATIVE); NITRITE,URINE POSITIVE (NEGATIVE); PH,URINE 6.5 (5-9); PROTEIN,URINE NEGATIVE (NEGATIVE); UROBILINOGEN,URINE NORMAL (NORMAL)
[2017-12-12 22:07] LABS: BACTERIA,URINE LARGE /HPF; RBC,URINE 0-2 /HPF
[2017-12-12] MEDS ORDERED: meTOprolol 5 MG/5 ML (LOPRESSOR) VIAL IV ONE (22:15)
[2017-12-12] MEDS ORDERED: RT-LEVALBUTEROL (XOPENEX) 1.25 MG/3 ML NEB NON-FORMULARY INH ONE (22:15)
--- NOTE | 2017-12-12 23:38 | ED General ---
General Chief Complaint: General Problems/Pain Stated Complaint: NAUSEA Nursing Triage Note: PATIENT HAS BEEN ON AMOXICILLIN X5 DAYS FOR BRONCHITIS NAD A SINUS INFECTION. ABOUT 3 DAYS AGO SHE STARTED HAVING NAUSEA AND A BITTER TASTE IN HER MOUTH. DENIES ANY OTHER COMPLAINTS. SHE THINKS SHE HAS BEEN TAKING THE AMOXICILLIN WITHOUT FOOD. Nursing Sepsis Screen: No Definite Risk Source of Information: Patient Exam Limitations: No Limitations History of Present Illness Date Seen by Provider: Dec 12, 2017 Time Seen by Provider: 21:07 Initial Comments This 72-year-old woman initially presents because of nausea and bitter taste in her mouth for the past 3 days. She has been treated with amoxicillin for bronchitis and sinusitis. She also finished a short course of steroids. Upon assessment she is noted to be extremely hypertensive. Patient states she has a history of SVT and has been hypertensive in the past during episodes of SVT. She is in sinus rhythm upon assessment. She reported blood pressure at home was 160/95. She took her usual dose of metoprolol at home. She also takes clonidine when necessary for exacerbations of hypertension. She took a clonidine upon noting her blood pressure elevation in the ER. She denies any chest pain, headache, or change in vision at this time. She had nausea at home for which she takes Zofran at 16:00. She is not nauseated now. Her only complaint at this time is bitter taste in the mouth. She has had some shortness of air and wheezing today associated with asthma. She has taken multiple puffs of her albuterol inhaler. At home she uses Xopenex nebulizer treatments. Allergies and Home Medications Allergies Coded Allergies: codeine (Verified Allergy, Unknown, 03/23/08) gatifloxacin (Verified Allergy, Unknown, 03/23/08) nitrofurantoin (Verified Allergy, Unknown, 03/23/08) Home Medications Albuterol Sulfate 8 Gm Hfa.aer.ad, 2 PUFF IH QID PRN for SHORTNESS OF BREATH, ( Reported) Hydrocodone Bit/Acetaminophen 1 Each Tablet, 1 TAB PO Q6H PRN for PAIN, ( Reported) Ibuprofen 200 Mg Tablet, 600 MG PO BID PRN for PAIN, (Reported) Ipratropium Moody 0.2 Mg/1 Ml Solution, 0.5 MG IH Q6H PRN for SHORTNESS OF BREATH May mix with Xopenex Prescribed by: MONTSERRAT SANTOS on 08/19/17 0919 Levalbuterol Hcl 1.25 Mg/0.5 Ml Vial.neb, 1.25 MG IH Q4H PRN for SHORTNESS OF BREATH, (Reported) Lorazepam 1 Mg Tab, 1 MG PO TID PRN for ANXIETY, (Reported) Metoprolol Tartrate 50 Mg Tablet, 50 MG PO TID, (Reported) Patient Home Medication List Home Medication List Reviewed: Yes Constitutional: no symptoms reported EENTM: see HPI Respiratory: see HPI Cardiovascular: see HPI Gastrointestinal: see HPI Genitourinary: no symptoms reported : No Musculoskeletal: no symptoms reported Skin: no symptoms reported Psychiatric/Neurological: No Symptoms Reported Hematologic/Lymphatic: No Symptoms Reported Past Zvejakc-Yacncv-Ezhbfz Hx Patient Social History Alcohol Use: Denies Use Recreational Drug Use: No Smoking Status: Never a Smoker 2nd Hand Smoke Exposure: Yes Recent Foreign Travel: No Contact w/Someone Who Travel: No Recent Infectious Disease Expo: No Recent Hopitalizations: No Seasonal Allergies Seasonal Allergies: Yes Surgeries History of Surgeries: Yes Surgeries: Appendectomy Respiratory History of Respiratory Disorde: Yes Respiratory Disorders: Asthma, COPD Cardiovascular History of Cardiac Disorders: Yes (SVT) Cardiac Disorders: 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, Irregular Heartbeat Neurological History of Neurological Disord: No Reproductive System Hx Reproductive Disorders: No Sexually Transmitted Disease: No Female Reproductive Disorders: Denies 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 Genitourinary History of Genitourinary Disor: No Gastrointestinal History of Gastrointestinal Di: Yes Gastrointestinal Disorders: Gastroesophageal Reflux Musculoskeletal History of Musculoskeletal Dis: Yes (RIGHT HUMERUS FRACTURE, R FOOT) Musculoskeletal Disorders: Fractures Endocrine History of Endocrine Disorders: No HEENT History of HEENT Disorders: No Cancer History of Cancer: No Psychosocial History of Psychiatric Problem: Yes Behavioral Health Disorders: Anxiety, Depression Integumentary History of Skin or Integumenta: No Blood Transfusions History of Blood Disorders: No Family Medical History Family Medial History: Dementia 19 MOTHER, , Age:88, Onset:60 years & older FH: CAD (coronary artery disease) 19 FATHER, , Age:64, Onset:60 years & older FH: CHF (congestive heart failure) 19 MOTHER, , Age:88, Onset:60 years & older Myocardial infarction 19 MOTHER, , Age:88, Onset:50's - 60 No Family History of: AIDS Abdominal aortic aneurysm Saqib's disease Alcoholism Alzheimer's disease Aphasia Arthritis Asthma Cancer of mouth Cardiovascular disease Cataracts Colon cancer Completed stroke Congenital disease Congenital heart disease Coronary thrombosis Cystic fibrosis Deafness or hearing loss Diabetes mellitus Drug abuse Dysphasia Fibrocystic disease of breast Gastroenteritis Glaucoma Headache disorder Hypercholesterolemia 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 Infertility Kidney disease Neoplasm Not obtainable due to adoption Osteoporosis Parkinson's disease Prostate cancer Psychosocial problem Respiratory disorder Seizure disorder Severe allergy Thyroid disease Tuberculosis Visual disorder Physical Exam Vital Signs Vital Signs - First Documented 12/12/17 20:55 Temp 96.8 Pulse 73 Resp 18 B/P (MAP) 225/132 (163) Pulse Ox 95 O2 Delivery Room Air Capillary Refill : Less Than 3 Seconds General Appearance: No Apparent Distress, WD/WN HEENT: PERRL/EOMI, TMs Normal, Normal ENT Inspection, Pharynx Normal Neck: Normal Inspection Respiratory: Lungs Clear, Normal Breath Sounds, No Accessory Muscle Use, No Respiratory Distress Cardiovascular: Regular Rate, Rhythm, No Edema, No Murmur, Normal Peripheral Pulses Gastrointestinal: Normal Bowel Sounds, Non Tender, Soft Extremity: Normal Inspection, No Pedal Edema Neurologic/Psychiatric: Alert, Oriented x3, No Motor/Sensory Deficits, Normal Mood/Affect, insurance follow up representative II-XII Norm as Tested Skin: Normal Color, Warm/Dry Progress/Results/Core Measures Suspected Sepsis Recent Fever Within 48 Hours: No Infection Criteria Present: None New/Unexplained Altered Menta: No Sepsis Screen: No Definite Risk Sepsis Diagnosis: SIRS Temperature:96.8 Pulse: 73 Respiratory Rate: 18 Laboratory Tests 12/12/17 21:15: White Blood Count 9.9 Blood Pressure 225 /132 Mean: 163 Laboratory Tests 12/12/17 21:15: Creatinine 0.77, Platelet Count 371, Total Bilirubin 1.0 Results/Orders Lab Results Laboratory Tests Test 12/12/17 21:15 12/12/17 21:53 Range/Units White Blood Count 9.9 4.3-11.0 10^3/uL Red Blood Count 5.44 4.35-5.85 10^6/uL Hemoglobin 16.4 H 11.5-16.0 G/DL Hematocrit 48 35-52 % Mean Corpuscular Volume 89 80-99 FL Mean Corpuscular Hemoglobin 30 25-34 PG Mean Corpuscular Hemoglobin Concent 34 32-36 G/DL Red Cell Distribution Width 13.6 10.0-14.5 % Platelet Count 371 130-400 10^3/uL Mean Platelet Volume 9.5 7.4-10.4 FL Neutrophils (%) (Auto) 52 42-75 % Lymphocytes (%) (Auto) 23 12-44 % Monocytes (%) (Auto) 13 H 0-12 % Eosinophils (%) (Auto) 12 H 0-10 % Basophils (%) (Auto) 1 0-10 % Neutrophils # (Auto) 5.1 1.8-7.8 X 10^3 Lymphocytes # (Auto) 2.2 1.0-4.0 X 10^3 Monocytes # (Auto) 1.3 H 0.0-1.0 X 10^3 Eosinophils # (Auto) 1.2 H 0.0-0.3 10^3/uL Basophils # (Auto) 0.1 0.0-0.1 10^3/uL Sodium Level 142 135-145 MMOL/L Potassium Level 4.2 3.6-5.0 MMOL/L Chloride Level 105 98-107 MMOL/L Carbon Dioxide Level 29 21-32 MMOL/L Anion Gap 8 5-14 MMOL/L Blood Urea Nitrogen 9 7-18 MG/DL Creatinine 0.77 0.60-1.30 MG/DL Estimat Glomerular Filtration Rate > 60 BUN/Creatinine Ratio 12 Glucose Level 93 70-105 MG/DL Calcium Level 10.7 H 8.5-10.1 MG/DL Total Bilirubin 1.0 0.1-1.0 MG/DL Aspartate Amino Transf (AST/SGOT) 19 5-34 U/L Alanine Aminotransferase (ALT/SGPT) 19 0-55 U/L Alkaline Phosphatase 77 40-136 U/L Total Protein 7.1 6.4-8.2 GM/DL Albumin 4.3 3.2-4.5 GM/DL TSH [facility] Testing 2.20 0.35-4.94 UIU/ML Urine Color YELLOW Urine Clarity CLEAR Urine pH 6.5 5-9 Urine Specific [place] 1.010 L 1.016-1.022 Urine Protein NEGATIVE NEGATIVE Urine Glucose (UA) NEGATIVE NEGATIVE Urine Ketones NEGATIVE NEGATIVE Urine Nitrite POSITIVE H NEGATIVE Urine Bilirubin NEGATIVE NEGATIVE Urine Urobilinogen NORMAL NORMAL MG/DL Urine Leukocyte Esterase 2+ H NEGATIVE Urine RBC (Auto) 2+ H NEGATIVE Urine RBC 0-2 /HPF Urine WBC 2-5 /HPF Urine Squamous Epithelial Cells 2-5 /HPF Urine Crystals NONE /LPF Urine Bacteria LARGE H /HPF Urine Casts NONE /LPF Urine Mucus NEGATIVE /LPF Urine Culture Indicated YES My Orders Orders - MONTSERRAT JESSICA MD Cbc With Automated Diff (12/12/17 21:07) Comprehensive Metabolic Panel (12/12/17 21:07) Thyroid Analyzer (12/12/17 21:07) Saline Lock/Iv-Start (12/12/17 21:07) Ekg Tracing (12/12/17 21:07) Monitor-Rhythm Ecg Trace Only (12/12/17 21:07) Ua Culture If Indicated (12/12/17 21:35) Labetalol Injection (Normodyne Injection (12/12/17 21:45) Ekg Tracing (12/12/17 22:02) Ekg Tracing (12/12/17 22:02) Metoprolol Tartrate Injection (Lopressor (12/12/17 22:15) Levalbuterol (Non-Formulary) (Xopenex (N (12/12/17 22:15) Urine Culture (12/12/17 21:53) Verapamil Injection (Calan Injection) (12/12/17 23:45) Medications Given in ED Current Medications Medications Dose Ordered Sig/Dusty Route Start Time Stop Time Status Last Admin Dose Admin Labetalol HCl 10 mg ONCE ONCE IV 12/12/17 21:45 12/12/17 21:46 DC 12/12/17 21:45 10 MG Levalbuterol HCl 1.25 mg ONCE ONCE INH 12/12/17 22:15 12/12/17 22:16 DC 12/12/17 22:18 1.25 MG Metoprolol Tartrate 5 mg ONCE ONCE IV 12/12/17 22:15 12/12/17 22:16 DC 12/12/17 22:11 5 MG Vital Signs/I&O Vital Sign - Last 12Hours 12/12/17 12/12/17 12/13/17 12/13/17 20:55 22:18 00:27 00:30 Temp 96.8 96.8 97.4 Pulse 73 79 77 Resp 18 18 18 B/P (MAP) 225/132 (163) 139/83 (163) 142/79 (100) Pulse Ox 95 93 93 92 O2 Delivery Room Air Room Air Room Air Room Air 3/12/13/17 12/13/17 12/13/17 00:45 01:00 01:14 01:50 Pulse 77 73 76 B/P (MAP) 124/81 (95) 131/80 (97) Pulse Ox 93 O2 Delivery Room Air 12/13/17 12/13/17 12/13/17 02:21 02:39 04:00 Temp 97.9 Pulse 72 Resp 18 B/P (MAP) 144/89 (107) 138/83 (101) Pulse Ox 71 92 96 O2 Delivery Room Air Room Air Capillary Refill : Less Than 3 Seconds Blood Pressure Mean: 163 Progress Note #1: Time: 22:15 Progress Note Patient was seen and examined. Workup was pursued. Patient's blood pressure did not improve with clonidine. Labetalol 10 mg IV was also given which modestly improved her blood pressure. This is followed by Lopressor 5 mg IV which improved her blood pressure more. Patient was noted to have runs of atrial tachycardia. Heart rate with these runs was around 130. This did not appear to correlate with SVT but rather some type of atrial tachycardia. Progress Note #2: Time: 23:40 Progress Note Patient has had recurrent episodes of tachycardia in the last 30 minutes [address] increasing frequency[address] Girard was consulted and case was initially discussed with him around 22:50. He recommended admission for observation. He did not suggest anticoagulation at this time because of patient's extreme hypertension. Dr. Girard was contacted again and plan was reviewed. Because patient is now having frequent recurrent runs of tachycardia, we will give verapamil 5 mg every 3 hours. ECG EKG #1: EKG Time: 21:19 Rate: 74 Rhythm: Normal Sinus Comment Sinus rhythm with no ST elevation or depression. Left axis deviation and LVH noted. No abnormal intervals. EKG #2: EKG Time: 21:52 Rate: 97 Rhythm: S.Tach Comment Sinus tachycardia with brief runs of atrial tachycardia. No ST elevation or depression. Left axis deviation. EKG #3: EKG Time: 22:27 Rate: 118 Comment Sinus rhythm with runs of atrial tachycardia. No ST elevation or depression. Left axis deviation. Departure Communication (Admissions) Time/Spoke to Admitting Phy: 23:[address] Freire Time/Spoke to Consulting Phy: 22:50 Communication/Consulting Dr. Girard Impression Impression: Primary Impression: Atrial tachycardia Additional Impressions: Hypertensive urgency Urinary tract infection Qualified Codes: N39.0 - Urinary tract infection, site not specified Nausea Sinusitis Qualified Codes: J01.90 - Acute sinusitis, unspecified Disposition: 09 ADMITTED INPATIENT Condition: Improved Admissions Decision to Admit Reason: Admit from ER (General) Decision to Admit/Date: Dec 12, 2017 Time/Decision to Admit Time: 22:50 Departure-Patient Inst. Referrals: ESTER ALLRED MD (PCP/Family) Primary Care Physician MONTSERRAT JESSICA MD Dec 12, 2017 23:38
[2017-12-12] MEDS ORDERED: VERAPAMIL 10 MG/4 ML (CALAN) VIAL IV ONE (23:45)
[2017-12-13] VITALS (9 sets, daily range): BP systolic 124–144; BP diastolic 71–89
--- OUTSIDE RECORDS SUMMARY | 2017-12-13 00:18 | XMS REPORT | Clinical Summary ---
Author Author [facility] Organization [facility] Address Unknown Phone Unavailable Care Team Providers Care Pill Packer Name Role Phone Tim Michael MD PCP Vale Pappas RN Unavailable Unavailable Source Comments Some departments are not documenting in the electronic medical record. If you do not see the information that you expected, contact Release of Information in the Health Information Management department at [phone] for further assistance in locating additional records.[facility] Allergies Active Allergy Reactions Severity Noted [...]
[2017-12-13] MEDS ORDERED: ONDANSETRON 4 MG/2 ML (SDV) Z0FRAN IV PRN (01:00)
[2017-12-13] MEDS ORDERED: RT-LEVALBUTEROL (XOPENEX) 1.25 MG/3 ML NEB NON-FORMULARY INH PRN (01:00)
[2017-12-13] MEDS ORDERED: cefTRIAXone 1 GM/NS 100 ML IVPB IV SCH ×2 (01:22)
[2017-12-13] MEDS: VERAPAMIL 5 MG/2 ML (CALAN) VIAL IV SCH ×3 (01:29→07:00)
[2017-12-13] MEDS: RT-LEVALBUTEROL (XOPENEX) 1.25 MG/3 ML NEB NON-FORMULARY INH SCH ×3 (02:38→10:50)
[2017-12-13] MEDS ORDERED: IBUPROFEN 600 MG (MOTRIN) TAB PO PRN (04:00)
[2017-12-13] MEDS ORDERED: ACETAMINOPHEN 500 MG TAB (TYLENOL) PO PRN (04:00)
[2017-12-13] MEDS ORDERED: INFLUENZA TRIvalent 2017-2018 0.5 ML/45 MCG SYR IM ONE (07:45)
[2017-12-13] MEDS ORDERED: LACT1CAP64 PO (09:18)
[2017-12-13] MEDS ORDERED: CEFD300C3 PO (09:18)
--- NOTE | 2017-12-13 09:23 | Discharge Inst-Simple/Standard ---
Discharge Inst-Standard Patient Instructions/Follow Up Plan of Care/Instructions/FU: Please continue to take your medications as written. If your symptoms return or worsen please return to the ER. Please keep your appointment with Dr Michael on Fridayto follow up this hospital stay. Activity as Tolerated: Yes Discharge Diet: Cardiac Diet Planned Outpatient Orders/Ref. Pneu Vac Indicated: Yes ARSLAN COHEN MD Dec 13, 2017 9:23 am
--- NOTE | 2017-12-13 09:37 | Short Stay Summary-Hospitalist ---
History of Present Illness HPI/Chief Complaint Pt is a 72yoCF with a PMH of HTN, asthma, and SVT who presented to the ER for evaluation of symptoms of a sinus infection. She states she was seen by her PCP and started on Amoxil 4 days ago without improvement in her symptoms. She continued to feel worse. She had a difficulty time describing how she felt and could only state she "didn't feel well" or "didn't feel right." Upon arrival to the ER she was found to be very hypertensive with a BP of 225/132. She was given IV Labetalol without improvement. EKG obtained revealed an atrial tachycardia with rates in the 130s. She states when her heart rate was that high she felt like she does when she's in SVT. She is normally able to control her SVT using ice. She denied any chest pain or palpitations during this episode. She was then given IV Lopressor and IV Verapamil and her rate improved along with her blood pressure. She was admitted for observation on telemetry. Today she reports she is feeling well. She has no complaints. She is requesting discharge so she can be home to care for her disabled son. Source: patient Exam Limitations: no limitations Date Seen 12/13/17 Time Seen by Provider: 09:00 Attending Physician Yanna Cohen MD PCP Tim Michael MD Referring Physician Date of Admission Dec 12, 2017 at 11:30 pm Home Medications & Allergies Home Medications Reviewed patient Home Medication Reconciliation performed by pharmacy medication reconciliations casting technician and/or nursing. Patients Allergies have been reviewed. Allergies Allergies Coded Allergies codeine (Verified Allergy, Unknown, 03/23/08) gatifloxacin (Verified Allergy, Unknown, 03/23/08) nitrofurantoin (Verified Allergy, Unknown, 03/23/08) Past Vjmmmqh-Hbmhsy-Shryuk Hx Past Med/Social Hx: Reviewed Nursing Past Med/Soc Hx, Reviewed and Corrections made Patient Social History Marrital Status: Employed/Student: retired Alcohol Use: Denies Use Recreational Drug Use: No Smoking Status: Former Smoker 2nd Hand Smoke Exposure: Yes Physical Abuse Screen: No Sexual Abuse: No Recent Foreign Travel: No Contact w/other who traveled: No Recent Hopitalizations: No Recent Infectious Disease Expo: No Seasonal Allergies Seasonal Allergies: Yes Past Medical History Surgeries: Appendectomy Currently Using CPAP: No Currently Using BIPAP: No Cardiac: 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, Irregular Heartbeat (SVT) : No Reproductive: No Sexually Transmitted Disease: No Female Reproductive Disorders: Denies Menopausal Gastrointestinal: Gastroesophageal Reflux Musculoskeletal: Arthritis, Fractures Psychosocial: Anxiety, Depression History of Blood Disorders: No Family History Reviewed Nursing Family Hx Dementia 19 MOTHER, , Age:88, Onset:60 years & older FH: CAD (coronary artery disease) 19 FATHER, , Age:64, Onset:60 years & older FH: CHF (congestive heart failure) 19 MOTHER, , Age:88, Onset:60 years & older Myocardial infarction 19 MOTHER, , Age:88, Onset:50's - 60 No Family History of: AIDS Abdominal aortic aneurysm Saqib's disease Alcoholism Alzheimer's disease Aphasia Arthritis Asthma Cancer of mouth Cardiovascular disease Cataracts Colon cancer Completed stroke Congenital disease Congenital heart disease Coronary thrombosis Cystic fibrosis Deafness or hearing loss Diabetes mellitus Drug abuse Dysphasia Fibrocystic disease of breast Gastroenteritis Glaucoma Headache disorder Hypercholesterolemia 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 Infertility Kidney disease Neoplasm Not obtainable due to adoption Osteoporosis Parkinson's disease Prostate cancer Psychosocial problem Respiratory disorder Seizure disorder Severe allergy Thyroid disease Tuberculosis Visual disorder Heart Disease, Diabetes, 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 Review of Systems Constitutional: see HPI, No chills, No fever EENTM: see HPI, nose congestion, No blurred vision, No double vision, No throat pain Respiratory: No cough, No dyspnea on exertion, No phlegm, wheezing Cardiovascular: No chest pain, No edema, No palpitations, No syncope Gastrointestinal: No abdominal pain, No constipation, No diarrhea, nausea, No vomiting Genitourinary: No dysuria, No frequency, No hematuria Musculoskeletal: No back pain, No joint pain, No muscle pain Skin: No lesions, No rash Psychiatric/Neurological: Denies Emotional Problems, Headache, Denies Numbness , Denies Tingling Physical Exam Physical Exam Vital Signs Vital Signs - First Documented 12/12/17 20:55 Temp 96.8 Pulse 73 Resp 18 B/P (MAP) 225/132 (163) Pulse Ox 95 O2 Delivery Room Air Capillary Refill : Less Than 3 SecondsLess Than 3 Seconds General Appearance: No Apparent Distress, WD/WN HEENT: PERRL/EOMI, Moist Mucous Membranes, No Scleral Icterus (L), No Scleral Icterus (R) Neck: Non Tender, Supple, No JVD, No Thyromegaly Respiratory: Lungs Clear, No Respiratory Distress Cardiovascular: Regular Rate, Rhythm, No Edema, No Murmur, Normal Peripheral Pulses Gastrointestinal: Normal Bowel Sounds, Non Tender, Soft Extremity: Normal Capillary Refill, No Calf Tenderness Neurologic/Psychiatric: Alert, Oriented x3, No Motor/Sensory Deficits, Normal Mood/Affect Skin: Normal Color, Warm/Dry Results Results/Procedures Labs Laboratory Tests 12/12/17 21:15 Patient resulted labs reviewed. Short Stay Diagnosis Discharge Diagnosis-Short Stay Admission Diagnosis Hypertensive urgency and atrial tachycardia Final Discharge Diagnosis See below Conclusion Plan See problems Diagnosis/Problems Diagnosis/Problems (1) Hypertensive urgency Status: Acute Assessment & Plan: BP much improved today Received Labetalol, Metoprolol, and Verapamil IV in ER and has remained normotensive since Cardiology consulted, appreciate recs Advised to keep appt with Dr Michael on 12/15 (2) Atrial tachycardia Status: Acute Assessment & Plan: NSR overnight on telemetry Will Continue on metoprolol Discussed with Dr Girard who will see patient this AM Returned to room at 949 to update on discussion with Dr Girard and plan to discharge once her sees her. She is in agreement with plan. (3) Sinusitis Status: Acute Assessment & Plan: treated with Amoxil but no improvement Will switch to Omnicef for better coverage (4) Asymptomatic bacteriuria Status: Acute Assessment & Plan: No indication for antibiotics for urine as is asymptomatic Covered with abx for sinusitis though Clinical Quality Measures DVT/VTE Risk/Contraindication: Risk Factor Score Per Nursin RFS Level Per Nursing on Admit: 3=High YANNA COHEN MD Dec 13, 2017 9:37 am
--- NOTE | 2017-12-13 12:04 | Consultation-Cardiology ---
HPI-Cardiology Cardiology Consultation: Date of Consultation 12/13/17 Date of Admission Attending Physician Arslan Freire MD Admitting Physician Tim Michael MD Consulting Physician Skyler GIRARD MD HPI: Time Seen by Provider: 12:04 Chief Complaint: 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, tachycardia This is a pleasant 72-year-old lady with history of hypertension, asthma and previous supraventricular tachycardia. She initially presented to the ER for symptoms of sinus infection. However in the ER she was found to be very hypertensive with blood pressure of systolic 225. She was given IV labetalol without significant improvement. EKG showed tachycardia with heart rates in 130s. She denied any chest pain, shortness of breath. She was started on IV Lopressor and IV verapamil with significant improvement in her heart rate and blood pressure. Review of Systems-Cardiology Review of Systems Constitutional: No As described under HPI, No no symptoms reported, No chills, No fever, No lightheadedness, No malaise, No tiredness, No weight loss, No weight gain, No other Eyes: No As described under HPI, No no symptoms reported, No blindness, No blurred vision, No contact lenses, No drainage, No decreased acuity, No foreign body sensation, No glasses, No inflammation, No pain, No photophobia, No previous injury, No shadows, No tunnel vision, No other, No vision change Ears/Nose/Throat: As described under HPI Respiratory: No no symptoms reported, No As described under HPI, No cough, No orthopnea, No shortness of breath, No SOB with excertion, No SOB at rest, No stridor, No wheezing, No other Cardiovascular: No no symptoms reported, No As described under HPI, No chest pain, No edema, No irregular heart rate, No lightheadedness, palpitations, No syncope, No other Gastrointestinal: No no symptoms reported, No As described under HPI, No abdomen distended, No abdominal pain, No blood streaked bowels, No constipation , No diarrhea, No difficulty swallowing, No nausea, No poor appetite, No poor fluid intake, No rectal bleeding, No vomiting, No other, No nausea/vomiting/ diarrhea, No stool coloration changes Genitourinary: No no symptoms reported, No As described under HPI, No burning, No dysuria, No discharge, No frequency, No flank pain, No hematuria, No incontinence, No pain, No urgency, No other, No urine frequency changes, No urine coloration changes : No Musculoskeletal: No no symptoms reported, No As describe under HPI, No back pain, No gout, No joint pain, No joint swelling, No muscle pain, No muscle stiffness, No neck pain, No other Skin: No no symptoms reported, No As described under HPI, No change in color, No change in hair/nails, No dryness, No lesions, No lumps, No rash, No other, No skin related problems, No ulcerations, No rash on exposed areas, No ulcerations on exposed areas Psychiatric/Neurological: No no symptoms reported, No As described under HPI, No anxiety, No depression, No emotional problems, No headache, No numbness, No pre-existing deficit, No seizure, No tingling, No tremors, No weakness, No other , No focal weakness, No syncope Hematologic: No no symptoms reported, No As described under HPI, No anemia, No blood clots, No easy bleeding, No easy bruising, No swollen glands, No other, No bleeding abnormalities [id number] Hx Patient Social History Marrital Status: Employed/Student: retired Alcohol Use: Denies Use Recreational Drug Use: No Smoking Status: Former Smoker Former smoker/When Quit: Jul 04, 1983 2nd Hand Smoke Exposure: Yes Recent Foreign Travel: No Recent Infectious Disease Expo: No Hospitalization with Isolation: Denies Physical Abuse Screen: No Sexual Abuse: No Past Medical History PMH As described under Assessment. Family Medical History Family History: Dementia 19 MOTHER, , Age:88, Onset:60 years & older FH: CAD (coronary artery disease) 19 FATHER, , Age:64, Onset:60 years & older FH: CHF (congestive heart failure) 19 MOTHER, , Age:88, Onset:60 years & older Myocardial infarction 19 MOTHER, , Age:88, Onset:50's - 60 No Family History of: AIDS Abdominal aortic aneurysm Lincoln's disease Alcoholism Alzheimer's disease Aphasia Arthritis Asthma Cancer of mouth Cardiovascular disease Cataracts Colon cancer Completed stroke Congenital disease Congenital heart disease Coronary thrombosis Cystic fibrosis Deafness or hearing loss Diabetes mellitus Drug abuse Dysphasia Fibrocystic disease of breast Gastroenteritis Glaucoma Headache disorder Hypercholesterolemia 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 Infertility Kidney disease Neoplasm Not obtainable due to adoption Osteoporosis Parkinson's disease Prostate cancer Psychosocial problem Respiratory disorder Seizure disorder Severe allergy Thyroid disease Tuberculosis Visual disorder Allergies and Home Medications Allergies Coded Allergies: codeine (Verified Allergy, Unknown, 03/23/08) gatifloxacin (Verified Allergy, Unknown, 03/23/08) nitrofurantoin (Verified Allergy, Unknown, 03/23/08) Home Medications Albuterol Sulfate 8 Gm Hfa.aer.ad, 2 PUFF IH QID PRN for SHORTNESS OF BREATH, ( Reported) Cefdinir 300 Mg Capsule, 300 MG PO BID Prescribed by: ARSLAN FREIRE on 12/13/17917 Hydrocodone Bit/Acetaminophen 1 Each Tablet, 1 TAB PO Q6H PRN for PAIN, ( Reported) Ibuprofen 200 Mg Tablet, 600 MG PO BID PRN for PAIN, (Reported) Ipratropium [place] 0.2 Mg/1 Ml Solution, 0.5 MG IH Q6H PRN for SHORTNESS OF BREATH May mix with Xopenex Prescribed by: MONTSERRAT SANTOS on 08/19/17 09 Lactobacillus Combo No.11 1 Each Cap.sprink, 1 EACH PO BID Prescribed by: ARSLAN FREIRE on 12/13/17917 Levalbuterol Hcl 1.25 Mg/0.5 Ml Vial.neb, 1.25 MG IH Q4H PRN for SHORTNESS OF BREATH, (Reported) Lorazepam 1 Mg Tab, 1 MG PO TID PRN for ANXIETY, (Reported) Metoprolol Tartrate 50 Mg Tablet, 50 MG PO TID, (Reported) Patient Home Medication List Home Medication List Reviewed: Yes Physical Exam-Cardiology Physical Exam Vital Signs/I&O Vital Sign - Last 12Hours 12/13/17 12:50 Pulse 78 Resp 18 B/P (MAP) 137/71 Pulse Ox 90 O2 Delivery Room Air Capillary Refill : Less Than 3 SecondsLess Than 3 Seconds Constitutional: AAO x 3 HEENT: PERRL, No normal ENT inspection, No TMs normal, No pharynx normal, No scleral icterus (R), No scleral icterus (L), No pale conjunctivae (R), No pale conjunctivae (L), No photophobia, No TM abnormal (R), No TM abnormal (L), No pharyngeal erythema, No tonsillar exudate, No other, No discharge, No EOMI, hearing is well preserved, No hard of hearing, oral hygience is good, No ulceration, No xanthelasmas are seen Neck: No non-tender, No full range of motion, No supple, No normal inspection, No carotid bruit, No limited range of motion, No lymphadenopathy (R), No lymphadenopathy (L), No tender lateral, No tender midline, No thyromegaly, No other, carotid pulses are 2 + bilaterally, No with good upstrokes Respiratory: No accessory muscle use, No respiratory distress, No chest tender , No chest expansion is symmetric, chest is bilaterally symmetric, No lungs clear to percussion, lungs clear to auscultation, No crackles, No rhonchi, No rales, No stridor, No wheezing, No pleural rub, No other Cardiovascular: regular rate-rhythm, No irregularly irregular, No extra beats, No parasternal heave is noted, No JVD, No edema, No bradycardia, No tachycardia , No point of maximal impulse, No cardiac thrills are palpable, S1 and S2, No gallop/S3, No gallop/S4, No diastolic murmur, No systolic murmur, No friction rub, No click, No other Gastrointestinal: No tender, No soft, No round, No distended, No pulsatile mass , No organomegaly, No guarding, No rebound, No tenderness, No hernia, No mass, No audible bowel sounds, No abnormal bowel sounds, No abdominal bruits, No spleenomegaly, No other Rectal: deferred Extremities: No normal range of motion, No non-tender, No normal inspection, No pedal edema, No calf tenderness, No normal capillary refill, No pelvis stable , No calf tenderness, No inflammation, No pedal edema, No slow capillary refill , No swelling, No other, No abrasion, No clubbing, No cyanosis, No ecchymosis, No laceration, No no lower extremity edema bilateral, No significant edema, No tenderness, No wound Neurologic/Psychiatric: alert, normal mood/affect, oriented x 3 Skin: No normal color, No warm/dry, No cyanosis, No cool, No diaphoresis, No damp, No ecchymosis, No jaundice, No mottled, No pallor, No rash, No tattoos/ piercings, No ulcerations, No rash on exposed areas, No ulcerations on exposed areas, No other Data Review Labs Microbiology 12/12/17 Urine Culture - Preliminary, Resulted Gram Negative Tuan ECG Impression ECG Initial ECG Impression: Atrial Fibrillation w/RVR A/P-Cardiology Assessment/Admission Diagnosis Atrial tachycardia/atrial fibrillation with rapid ventricular rate, 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, Sinusitis, Normocytic anemia. Plan atrial tachycardia/afib - I discussed at length with the patient pathophysiology of atrial fibrillation/atrial tachycardia, stroke prevention, rate versus rhythm control, diagnostic modalities and advance treatment modalities. I do not have access to her previous EKGs or telemetric strips therefore do not know type of SVT, however it is likely that she had atrial tachycardia. Likely atrial fibrillation which needs to be ruled out. Continue beta jean. i will follow up in clinic on friday. HTN ; continue beta jean. CHADSVASC score of 3 for age, gender and HTN, therefore she will be a candidate for oral anticoagulation therapy. Thank you for your consultation. Please call me if you have any questions. Marily Girard MD, FACP, FACC, FSCAI, FHRS, CCDS Interventional Cardiology Cardiac Electrophysiology Vascular Medicine and Endovascular Interventions Clinical Quality Measures DVT/VTE Risk/Contraindication: Risk Factor Score Per Nursin RFS Level Per Nursing on Admit: 3=High Skyler GIRARD MD Dec 13, 2017 12:04
== END 2017-12-13 09:21 | disposition home or self-care (01) ==
LOC: EDUNIT# 20:38 → ER 20:39 → 4TH 23:30
PROVIDERS: ADMIT Family Medicine; ATTEND Family Medicine
DX: I16.0 Hypertensive urgency (principal); I10 Essential (primary) hypertension; I47.1 Supraventricular tachycardia; J01.90 Acute sinusitis, unspecified; R82.71 Bacteriuria; D64.9 Anemia, unspecified; J45.909 Unspecified asthma, uncomplicated; J44.9 Chronic obstructive pulmonary disease, unspecified; F41.9 Anxiety disorder, unspecified; F32.9 Major depressive disorder, single episode, unspecified; K21.9 Gastro-esophageal reflux disease without esophagitis; R11.0 Nausea; Z79.899 Other long term (current) drug therapy
CPT/HCPCS: 36415; 80053; 81000; 84443; 85025; 87077; 87088; 87186; 93005; 93041; 94640; 94664; 94760; 96374; 96375; G0378

== ENCOUNTER 2017-12-23 08:01 | Outpatient (RCR) | payer MEDICARE, OTHER ==
[~2017-12-23 08:01] MED LIST changes: +LACT1CAP64 PO
== END 2018-03-23 | disposition home or self-care (01) ==
LOC: CARD 08:01
PROVIDERS: ATTEND Internal Medicine Interventional Cardiology
DX: I10 Essential (primary) hypertension (principal); I47.1 Supraventricular tachycardia
CPT/HCPCS: 93225; 93226

== ENCOUNTER 2018-01-19 08:43 | Outpatient (RCR) | payer MEDICARE, OTHER | END 2018-03-25 | disposition home or self-care (01) | LOC: CARD 08:43 | PROVIDERS: ATTEND Internal Medicine Interventional Cardiology | DX: I10 Essential (primary) hypertension (principal); I47.1 Supraventricular tachycardia | CPT/HCPCS: 93270 ==

== ENCOUNTER → 2018-02-05 | Outpatient (CLI) | payer MEDICARE, OTHER ==
--- NOTE | 2018-02-05 15:10 | Diagnostic Imaging Report ---
INDICATION: Screening for osteoporosis. No prior studies are available for comparison. FINDINGS: Bone mineral analysis of the lumbar spine and both hips was performed. The bone mineral density of the lumbar spine L2-L4 is 0.908 with a T score of -2.4. Bone mineral density of the left femoral neck is 0.723 with a T score -2.3. Bone mineral density of the right femoral neck is 0.758 with a T score of -2.0. IMPRESSION: Findings consistent with osteopenia of the lumbar spine and bilateral femoral necks. Dictated by: Dictated on workstation # [id number]
== END ==
LOC: RAD 10:09
PROVIDERS: ATTEND Internal Medicine
DX: Z13.820 Encounter for screening for osteoporosis (principal); E21.3 Hyperparathyroidism, unspecified
CPT/HCPCS: 77080

== ENCOUNTER 2018-04-13 18:02 | Emergency (ER) | payer OTHER ==
[~2018-04-13] VITALS: Ht 160 cm; Wt 63.5 kg
[2018-04-13] MEDS ORDERED: ADENOSINE 6 MG/2 ML (ADENOCARD) VIAL IV ONE ×4 (18:15→18:45)
[2018-04-13] MEDS ORDERED: ASPIRIN 81 MG CHEW (CHILDREN'S ASA) PO ONE (18:15)
[2018-04-13 18:25] LABS: BASOPHILS % (AUTO) 0 % (0-10); EOSINOPHILS % (AUTO) 0 % (0-10); HEMATOCRIT 48 % (35-52); HEMOGLOBIN 16.8 G/DL (11.5-16.0); LYMPHOCYTES # (AUTO) 1.8 X 10^3 (1.0-4.0); LYMPHOCYTES % (AUTO) 14 % (12-44); MEAN CORPUSCULAR HEMOGLOBIN 31 PG (25-34); MEAN CORPUSCULAR HGB CONC 35 G/DL (32-36); MEAN CORPUSCULAR VOLUME 88 FL (80-99); MEAN PLATELET VOLUME 10.4 FL (7.4-10.4); MONOCYTES # (AUTO) 0.6 X 10^3 (0.0-1.0); MONOCYTES % (AUTO) 5 % (0-12); NEUTROPHILS % (AUTO) 80 % (42-75); PLATELET COUNT 433 10^3/uL (130-400); RED BLOOD COUNT 5.45 10^6/uL (4.35-5.85); RED CELL DISTRIBUTION WIDTH 14.8 % (10.0-14.5); WHITE BLOOD COUNT 12.5 10^3/uL (4.3-11.0)
[2018-04-13 18:27] LABS: PROTHROMBIN TIME PATIENT 12.7 SEC (12.2-14.7)
[2018-04-13 18:38] LABS: ALANINE AMINOTRANSFERASE 24 U/L (0-55); ALBUMIN 4.4 GM/DL (3.2-4.5); ALKALINE PHOSPHATASE 64 U/L (40-136); BILIRUBIN,TOTAL 0.9 MG/DL (0.1-1.0); BUN/CREATININE RATIO 23; CALCIUM 9.8 MG/DL (8.5-10.1); CARBON DIOXIDE 20 MMOL/L (21-32); CHLORIDE 109 MMOL/L (98-107); CREATININE SERUM 0.84 MG/DL (0.60-1.30); GFR ESTIMATED > 60; GLUCOSE 192 MG/DL (70-105); MAGNESIUM 3.6 MG/DL (1.8-2.4); POTASSIUM 5.8 MMOL/L (3.6-5.0); SODIUM 140 MMOL/L (135-145); TOTAL PROTEIN 8.2 GM/DL (6.4-8.2)
[2018-04-13 18:45] LABS: MYOGLOBIN SERUM 41.6 NG/ML (10.0-92.0)
--- NOTE | 2018-04-13 18:45 | ED Chest Pain ---
General Chief Complaint: Cardiac/General Problems Stated Complaint: SVT Nursing Triage Note: Pt reports feeling of SVT, started 1 hr ago with heart palpitations and feeling SOA. Pt tried placing face in cold water as her maneuver she uses without conversion. Nursing Sepsis Screen: No Definite Risk Source: patient, old records Exam Limitations: no limitations History of Present Illness Date Seen by Provider: Apr 13, 2018 Time Seen by Provider: 18:03 Initial Comments This 72-year-old woman with known history of SVT and possibly atrial tachycardia presents to the emergency room with chest pressure, shortness of breath, and tachycardia this started about one hour prior to arrival. Patient took an extra dose of metoprolol as instructed but she remained tachycardic. Patient reports she is also hypertensive. Allergies and Home Medications Allergies Coded Allergies: codeine (Verified Allergy, Unknown, 03/23/08) gatifloxacin (Verified Allergy, Unknown, 03/23/08) nitrofurantoin (Verified Allergy, Unknown, 03/23/08) Home Medications Albuterol Sulfate 8 Gm Hfa.aer.ad, 2 PUFF IH QID PRN for SHORTNESS OF BREATH, ( Reported) Cefdinir 300 Mg Capsule, 300 MG PO BID Prescribed by: ARSLAN COHEN on 12/13/17917 Cefdinir 300 Mg Capsule, 300 MG PO BID Prescribed by: MONTSERRAT SANTOS on 04/13/182114 Hydrocodone Bit/Acetaminophen 1 Each Tablet, 1 TAB PO Q6H PRN for PAIN, ( Reported) Ibuprofen 200 Mg Tablet, 600 MG PO BID PRN for PAIN, (Reported) Ipratropium [place] 0.2 Mg/1 Ml Solution, 0.5 MG IH Q6H PRN for SHORTNESS OF BREATH May mix with Xopenex Prescribed by: MONTSERRAT SANTOS on 08/19/17 09 Lactobacillus Combo No.11 1 Each Cap.sprink, 1 EACH PO BID Prescribed by: ARSLAN COHEN on 12/13/17917 Levalbuterol Hcl 1.25 Mg/0.5 Ml Vial.neb, 1.25 MG IH Q4H PRN for SHORTNESS OF BREATH, (Reported) Lorazepam 1 Mg Tab, 1 MG PO TID PRN for ANXIETY, (Reported) Metoprolol Tartrate 50 Mg Tablet, 50 MG PO TID, (Reported) Patient Home Medication List Home Medication List Reviewed: Yes Review of Systems Constitutional: no symptoms reported EENTM: No Symptoms Reported Respiratory: See HPI Cardiovascular: See HPI Gastrointestinal: No Symptoms Reported Genitourinary: No Symptoms Reported Musculoskeletal: no symptoms reported Skin: no symptoms reported Psychiatric/Neurological: No Symptoms Reported Endocrine: No Symptoms Reported Hematologic/Lymphatic: No Symptoms Reported Past Mesckjf-Uuhibq-Eimmaw Hx Past Med/Social Hx: Reviewed and Corrections made Patient Social History Alcohol Use: Denies Use Recreational Drug Use: No Smoking Status: Never a Smoker 2nd Hand Smoke Exposure: Yes Recent Foreign Travel: No Contact w/Someone Who Travel: No Recent Infectious Disease Expo: No Recent Hopitalizations: No Seasonal Allergies Seasonal Allergies: Yes Past Medical History Surgeries: Yes Appendectomy Respiratory: Yes Asthma, COPD Currently Using CPAP: No Currently Using BIPAP: No Cardiac: Yes (SVT) 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, Irregular Heartbeat Neurological: No Reproductive Disorders: No Female Reproductive Disorders: Denies 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 Sexually Transmitted Disease: No Genitourinary: No Gastrointestinal: Yes Gastroesophageal Reflux Musculoskeletal: Yes (RIGHT HUMERUS FRACTURE, R FOOT) Arthritis, Fractures Endocrine: No HEENT: No Cancer: No Psychosocial: Yes Anxiety, Depression Integumentary: No Blood Disorders: No Family Medical History Dementia 19 MOTHER, , Age:88, Onset:60 years & older FH: CAD (coronary artery disease) 19 FATHER, , Age:64, Onset:60 years & older FH: CHF (congestive heart failure) 19 MOTHER, , Age:88, Onset:60 years & older Myocardial infarction 19 MOTHER, , Age:88, Onset:50's - 60 No Family History of: AIDS Abdominal aortic aneurysm Wake's disease Alcoholism Alzheimer's disease Aphasia Arthritis Asthma Cancer of mouth Cardiovascular disease Cataracts Colon cancer Completed stroke Congenital disease Congenital heart disease Coronary thrombosis Cystic fibrosis Deafness or hearing loss Diabetes mellitus Drug abuse Dysphasia Fibrocystic disease of breast Gastroenteritis Glaucoma Headache disorder Hypercholesterolemia 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 Infertility Kidney disease Neoplasm Not obtainable due to adoption Osteoporosis Parkinson's disease Prostate cancer Psychosocial problem Respiratory disorder Seizure disorder Severe allergy Thyroid disease Tuberculosis Visual disorder Heart Disease, Diabetes, 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 Physical Exam Vital Signs Vital Signs - First Documented 04/13/18 04/13/18 18:03 18:40 Temp 97.4 Pulse 160 Resp 20 B/P (MAP) 166/124 (138) Pulse Ox 94 O2 Delivery Room Air O2 Flow Rate 2.00 Capillary Refill : Less Than 3 Seconds Height, Weight, BMI Height: 5'3.00" Weight: 140lbs. 0.0oz. 63.540311vk; 24.9 BMI Method:Stated General Appearance: No Apparent Distress, WD/WN HEENT: PERRL/EOMI, Normal ENT Inspection Neck: Normal Inspection Respiratory: Lungs Clear, Normal Breath Sounds, No Accessory Muscle Use Cardiovascular: No Edema, No Murmur, Tachycardia Gastrointestinal: Non Tender, Soft Extremity: Normal Capillary Refill, Normal Inspection, No Pedal Edema Neurologic/Psychiatric: Alert, Oriented x3, No Motor/Sensory Deficits, Normal Mood/Affect, doctor of audiology II-XII Norm as Tested Skin: Normal Color, Warm/Dry Progress/Results/Core Measures Results/Orders Lab Results Laboratory Tests Test 04/13/18 18:06 04/13/18 20:03 Range/Units White Blood Count 12.5 H 4.3-11.0 10^3/uL Red Blood Count 5.45 4.35-5.85 10^6/uL Hemoglobin 16.8 H 11.5-16.0 G/DL Hematocrit 48 35-52 % Mean Corpuscular Volume 88 80-99 FL Mean Corpuscular Hemoglobin 31 25-34 PG Mean Corpuscular Hemoglobin Concent 35 32-36 G/DL Red Cell Distribution Width 14.8 H 10.0-14.5 % Platelet Count 433 H 130-400 10^3/uL Mean Platelet Volume 10.4 7.4-10.4 FL Neutrophils (%) (Auto) 80 H 42-75 % Lymphocytes (%) (Auto) 14 12-44 % Monocytes (%) (Auto) 5 0-12 % Eosinophils (%) (Auto) 0 0-10 % Basophils (%) (Auto) 0 0-10 % Neutrophils # (Auto) 10.0 H 1.8-7.8 X 10^3 Lymphocytes # (Auto) 1.8 1.0-4.0 X 10^3 Monocytes # (Auto) 0.6 0.0-1.0 X 10^3 Eosinophils # (Auto) 0.0 0.0-0.3 10^3/uL Basophils # (Auto) 0.0 0.0-0.1 10^3/uL Prothrombin Time 12.7 12.2-14.7 SEC INR Comment 1.0 0.8-1.4 Activated Partial Thromboplast Time 29 24-35 SEC Sodium Level 140 135-145 MMOL/L Potassium Level 5.8 H 3.6-5.0 MMOL/L Chloride Level 109 H 98-107 MMOL/L Carbon Dioxide Level 20 L 21-32 MMOL/L Anion Gap 11 5-14 MMOL/L Blood Urea Nitrogen 19 H 7-18 MG/DL Creatinine 0.84 0.60-1.30 MG/DL Estimat Glomerular Filtration Rate > 60 BUN/Creatinine Ratio 23 Glucose Level 192 H 70-105 MG/DL Calcium Level 9.8 8.5-10.1 MG/DL Magnesium Level 3.6 H 1.8-2.4 MG/DL Total Bilirubin 0.9 0.1-1.0 MG/DL Aspartate Amino Transf (AST/SGOT) 42 H 5-34 U/L Alanine Aminotransferase (ALT/SGPT) 24 0-55 U/L Alkaline Phosphatase 64 40-136 U/L Myoglobin 41.6 10.0-92.0 NG/ML Troponin I < 0.30 <0.30 NG/ML Total Protein 8.2 6.4-8.2 GM/DL Albumin 4.4 3.2-4.5 GM/DL TSH [place] Testing 0.75 0.35-4.94 UIU/ML Urine Color YELLOW Urine Clarity CLEAR Urine pH 7 5-9 Urine Specific [place] 1.010 L 1.016-1.022 Urine Protein 2+ H NEGATIVE Urine Glucose (UA) NEGATIVE NEGATIVE Urine Ketones NEGATIVE NEGATIVE Urine Nitrite NEGATIVE NEGATIVE Urine Bilirubin NEGATIVE NEGATIVE Urine Urobilinogen NORMAL NORMAL MG/DL Urine Leukocyte Esterase 2+ H NEGATIVE Urine RBC (Auto) 3+ H NEGATIVE Urine RBC 2-5 H /HPF Urine WBC 5-10 H /HPF Urine Crystals NONE /LPF Urine Bacteria LARGE H /HPF Urine Casts NONE /LPF Urine Mucus NEGATIVE /LPF Urine Culture Indicated YES My Orders Orders - MONTSERRAT JESSICA MD Cbc With Automated Diff (04/13/18 18:15) Magnesium (04/13/18 18:15) Chest 1 View, Ap/Pa Only (04/13/18 18:15) Ekg Tracing (04/13/18 18:15) Cardiac Profile 1 (04/13/18 18:15) Comprehensive Metabolic Panel (04/13/18 18:15) Myoglobin Serum (04/13/18 18:15) Protime With Inr (04/13/18 18:15) Partial Thromboplastin Time (04/13/18 18:15) O2 (04/13/18 18:15) Monitor-Rhythm Ecg Trace Only (04/13/18 18:15) Saline Lock/Iv-Start (04/13/18 18:15) Aspirin Chewable Tablet (Baby Aspirin Ch (04/13/18 18:15) Thyroid Analyzer (04/13/18 18:15) Adenosine Injection (Adenocard Injection (04/13/18 18:15) Adenosine Injection (Adenocard Injection (04/13/18 18:15) Adenosine Injection (Adenocard Injection (04/13/18 18:16) Ekg Tracing (04/13/18 18:24) Ekg Tracing (04/13/18 18:24) Adenosine Injection (Adenocard Injection (04/13/18 18:45) Ekg Tracing (04/13/18 18:47) Saline Lock/Iv-Start (04/13/18 19:01) Ns Iv 1000 Ml (Sodium Chloride 0.9%) (04/13/18 19:01) Chest Pa/Lat (2 View) (04/13/18 19:56) Ua Culture If Indicated (04/13/18 19:56) Urine Culture (04/13/18 20:03) Ceftriaxone Injection (Rocephin Injectio (04/13/18 20:30) Ekg Tracing (04/13/18 20:28) Medications Given in ED Current Medications Medications Dose Ordered Sig/Dusty Route Start Time Stop Time Status Last Admin Dose Admin Adenosine 6 mg ONCE ONCE IV 04/13/18 18:15 04/13/18 18:17 DC 04/13/18 18:20 6 MG Adenosine 6 mg ONCE ONCE IV 04/13/18 18:45 04/13/18 18:46 DC 04/13/18 18:45 6 MG Aspirin 324 mg ONCE ONCE PO 04/13/18 18:15 04/13/18 18:17 DC 04/13/18 18:34 324 MG Ceftriaxone Sodium 1000 mg/ Sodium Chloride 50 ml @ 100 mls/hr ONCE ONCE IV 04/13/18 20:30 04/13/18 20:59 DC 04/13/18 20:38 100 MLS/HR Sodium Chloride 1,000 ml @ 0 mls/hr Q0M ONCE IV 04/13/18 19:01 04/13/18 19:02 DC 04/13/18 19:15 999 MLS/HR Vital Signs/I&O 04/13/18 04/13/18 04/13/18 18:03 18:40 21:29 Temp 97.4 97.4 Pulse 160 70 Resp 20 20 B/P (MAP) 166/124 (138) 151/88 (138) Pulse Ox 94 94 O2 Delivery Room Air Nasal Cannula Room Air O2 Flow Rate 2.00 Blood Pressure Mean: 138 Progress Progress Note #1: Time: 18:42 Progress Note Patient's rhythm was suspicious for SVT on initial assessment. After multiple attempts of Valsalva and ice to the face, adenosine 6 mg IV was administered. This resulted in immediate conversion to sinus rhythm. However, patient is now in SVT again with a heart rate in the 140s. We will repeat adenosine and monitor. Patient was allowed to use her albuterol inhaler as she was feeling short of breath and felt like her asthma was acting up. Patient had a 30 day monitor in December that showed only one episode of SVT versus atrial flutter. Progress Note #2: Time: 18:49 Progress Note Rhythm was again converted with adenosine 6 mg. Progress Note #3: Time: 19:04 Progress Note Heart rate is presently 86. Last blood pressure was 157/93. Patient was noted to have a potassium of 5.8. A liter of IV fluids is being infused. Progress Note #4: Time: 19:59 Progress Note Patient has remained in sinus rhythm most of the time. She had 2 brief episodes of SVT, one lasting a few seconds and another lasting about one minute. Patient was noted to have a leukocytosis. We will check a UA and a 2 view chest x-ray to ensure we evaluate for treatable causes of infection that may be contributing to her tachycardia. Case was discussed with Dr. Girard who is okay with her returning home if rhythm is controlled. Patient is determined to return home and states she cannot be admitted because she has a son for whom she is the primary caregiver. Progress Note #5: Time: 20:36 Progress Note Patient seemed to develop a tachycardia with a new morphology. The rhythm appears to be more of a atrial tachycardia. Heart rate was in the 130s. As soon as the EKG was complete, patient returned to sinus rhythm in the 80s. Total length of tachycardia was around 3-5 minutes. Patient was found to have urinary tract infection and Rocephin was ordered. Two-view chest x-ray showed no evidence of pneumonia. Progress Note #6: Time: 20:55 Progress Note Patient had a few runs of tachycardia. Her last EKG demonstrated probable atrial tachycardia that appeared to have a bit different morphology than her prior faster tachycardia. After about 3 minutes this rhythm did convert back to a sinus rhythm. Case was again discussed with Dr. Girard. Since patient is now in sinus rhythm with stable vitals, he advised follow-up in the clinic. He will review her chart and contact her later. I did review medications with the patient. I advised it is okay for her to take an extra metoprolol for her tachycardia. She may also take her clonidine as previously prescribed if needed for severe hypertension. Close follow-up is recommended. EKG #1: EKG Time: 18:08 Rate: 159 Rhythm: SVT Comment SVT with subtle ST changes. Left axis deviation. EKG #2: EKG Time: 18:20 Rhythm: Normal Sinus Comment This EKG shows a variable rate starting at approximately 150 bpm and ending at about 100 bpm. This EKG demonstrates conversion of SVT to sinus rhythm. No acute ST elevation or depression after conversion. EKG #3: EKG Time: 18:28 Rate: 99 Rhythm: Normal Sinus Intervals: Normal Comment Sinus tachycardia with no ST elevation or depression. No significant abnormal intervals. LVH noted by automated read. EKG #4: EKG Time: 18:45 Rate: 90 Rhythm: Normal Sinus ECG Impression: Normal Comment Normal sinus rhythm with no ST elevation or depression. The first half of this EKG demonstrates the positives and heart block associated with administration of adenosine at the time of conversion. EKG #5: EKG Time: 20:31 Rate: 133 Comment Atrial tachycardia with no ST elevation or depression. Left axis deviation. Diagnostic Imaging Diagonstic Imaging: Xray Plain Films/CT/US/NM/MRI: chest Comments Chest x-ray viewed by me and report reviewed. See report below: NAME: GE [facility]IE [facility] REC#: [id number] PT STATUS: REG ER : 1945 PHYSICIAN: MONTSERRAT JESSICA MD ADMIT DATE: 04/13/18/ER Draft Date of Exam:04/13/18 CHEST 1 VIEW, AP/PA ONLY INDICATION: Tachycardia. COMPARISON: 08/19/2017. FINDINGS: Single view of the chest demonstrates cardiac enlargement without pulmonary edema. Small effusion and atelectasis seen in the left base. Underlying infiltrate is not excluded. The right lung is clear. There is no pneumothorax. Osseous structures are age appropriate. IMPRESSION: 1. Atelectasis and trace effusion left base. 2. Cardiac enlargement without pulmonary edema. Dictated on workstation # [id number] Dict: 04/13/181841 Trans: 04/13/181852 [id number] Interpreted by: RANDAL ROLLINS Diagonstic Imaging: Xray Plain Films/CT/US/NM/MRI: chest Comments Two-view chest x-ray viewed by me and report reviewed. See report below: NAME: GE MARIE [facility] REC#: [id number] PT STATUS: REG ER : 1945 PHYSICIAN: MONTSERRAT JESSICA MD ADMIT DATE: 04/13/18/ER Draft Date of Exam:04/13/18 CHEST PA/LAT (2 VIEW) INDICATION: Chest pain, shortness of breath, atelectasis, and effusion COMPARISON: 04/13/2018 at 6:37 FINDINGS: Frontal and lateral views of the chest demonstrate stable atelectasis in the left base. There is no overt effusion. The right lung is clear. The heart is minimally enlarged. There is no pneumothorax. IMPRESSION: Atelectasis left base. No obvious effusion seen. Dictated on workstation # [id number] Dict: 04/13/182019 Trans: 04/13/182025 [facility] [id number] Interpreted by: RANDAL ROLLINS Departure Impression Primary Impression: SVT (supraventricular tachycardia) Additional Impressions: Atrial tachycardia Hyperkalemia Urinary tract infection Qualified Codes: N39.0 - Urinary tract infection, site not specified 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 Qualified Codes: I10 - Essential (primary) hypertension Disposition: HOME, SELF-CARE Condition: Improved Departure-Patient Inst. Decision time for Depature: 21:05 Referrals: ESTER ALLRED MD (PCP/Family) Primary Care Physician Patient Instructions: Supraventricular Tachycardia (SVT), Urinary Tract Infection, Adult (DC) Add. Discharge Instructions: Drink plenty of clear liquids. Complete the entire course of your antibiotics as prescribed. Please keep your appointment with the middle school professional tomorrow. Bring this paperwork with you to that appointment and have the middle school professional review your labs. Call Dr. Girard's office to arrange a follow-up as soon as possible. Please also follow up with your primary care provider soon as possible. Your urine culture should be available to review in 2-3 days. Please discuss with your primary care provider to ensure you are on an appropriate antibiotic. Return to care if symptoms worsen again or if you develop new symptoms such as lightheadedness, chest pain, fever, etc. All discharge instructions reviewed with patient and/or family. Voiced understanding. Scripts Cefdinir (Cefdinir) 300 Mg Capsule 300 MG PO BID, #14 CAP Prov: MONTSERRAT JESSICA MD 04/13/18 Copy Copies To 1: Skyler GIRARD MD Copies To 2: ESTER ALLRED MD, JOSHUA T MD Apr 13, 2018 18:45
--- NOTE | 2018-04-13 18:53 | Diagnostic Imaging Report ---
INDICATION: Tachycardia. COMPARISON: 08/19/2017. FINDINGS: Single view of the chest demonstrates cardiac enlargement without pulmonary edema. Small effusion and atelectasis seen in the left base. Underlying infiltrate is not excluded. The right lung is clear. There is no pneumothorax. Osseous structures are age appropriate. IMPRESSION: 1. Atelectasis and trace effusion left base. 2. Cardiac enlargement without pulmonary edema. Dictated by: Dictated on workstation # [id number]
[2018-04-13] MEDS ORDERED: NS IV 1000 ML 1,000 ML IV ONE (19:01)
[2018-04-13 20:12] LABS: BILIRUBIN,URINE NEGATIVE (NEGATIVE); CLARITY,URINE CLEAR; COLOR,URINE YELLOW; GLUCOSE, URINE (UA) NEGATIVE (NEGATIVE); KETONES,URINE NEGATIVE (NEGATIVE); LEUKOCYTE ESTERASE ,URINE 2+ (NEGATIVE); NITRITE,URINE NEGATIVE (NEGATIVE); PH,URINE 7 (5-9); PROTEIN,URINE 2+ (NEGATIVE); UROBILINOGEN,URINE NORMAL (NORMAL)
[2018-04-13 20:21] LABS: BACTERIA,URINE LARGE /HPF
--- NOTE | 2018-04-13 20:26 | Diagnostic Imaging Report ---
INDICATION: Chest pain, shortness of breath, atelectasis, and effusion COMPARISON: 04/13/2018 at 6:37 FINDINGS: Frontal and lateral views of the chest demonstrate stable atelectasis in the left base. There is no overt effusion. The right lung is clear. The heart is minimally enlarged. There is no pneumothorax. IMPRESSION: Atelectasis left base. No obvious effusion seen. Dictated by: Dictated on workstation # [id number]
[2018-04-13] MEDS ORDERED: cefTRIAXone INJECTION 1,000 MG in NS (IVPB) 50 ML IV ONE (20:30)
[2018-04-13] MEDS ORDERED: CEFD300C3 PO (21:15)
[2018-04-13 21:29] VITALS: BP 151/88
== END 2018-04-13 21:28 | disposition home or self-care (01) ==
LOC: EDUNIT# 18:02 → ER 18:03
DX: I47.1 Supraventricular tachycardia (principal); E87.5 Hyperkalemia; N39.0 Urinary tract infection, site not specified; I10 Essential (primary) hypertension; J44.9 Chronic obstructive pulmonary disease, unspecified; K21.9 Gastro-esophageal reflux disease without esophagitis; F41.9 Anxiety disorder, unspecified; F32.9 Major depressive disorder, single episode, unspecified; Z88.5 Allergy status to narcotic agent; Z88.8 Allergy status to other drugs, medicaments and biological substances; Z88.1 Allergy status to other antibiotic agents; Z82.49 Family history of ischemic heart disease and other diseases of the circulatory system; Z79.51 Long term (current) use of inhaled steroids; Z77.22 Contact with and (suspected) exposure to environmental tobacco smoke (acute) (chronic); Z90.89 Acquired absence of other organs
CPT/HCPCS: 36415; 71045; 71046; 80053; 81000; 83735; 83874; 84443; 84484; 85025; 85610; 85730; 87077; 87088; 87186; 93005; 93041; 96361; 96374; 96375

== ENCOUNTER 2018-06-14 17:04 | Emergency (ER) | payer OTHER ==
[~2018-06-14] VITALS: Ht 160 cm; Wt 63.5 kg
[~2018-06-14 17:04] MED LIST changes: +HYDR-4226 PO; -HYDR-757 PO
[2018-06-14] MEDS ORDERED: ADENOSINE 6 MG/2 ML (ADENOCARD) VIAL IV ONE ×3 (17:07→17:30)
--- OUTSIDE RECORDS SUMMARY | 2018-06-14 17:09 | XMS REPORT | Clinical Summary ---
Author Author [facility] Organization [facility] Address Unknown Phone Unavailable Care Team Providers Care Integrity Engineer Name Role Phone Tim Michael MD PCP Vale Pappas RN Unavailable Unavailable Source Comments Some departments are not documenting in the electronic medical record. If you do not see the information that you expected, contact Release of Information in the Health Information Management department at [phone] for further assistance in locating additional records.[facility] Allergies Active Allergy Reactions Severity Noted [...] SCREENING 1985 COLORECTAL CANCER 1995 SCREENING SHINGLES RECOMBINANT 1995 VACCINE (1 of 2) OSTEOPOROSIS SCREENING 2010 PNEUMONIA (PCV13/PPSV23) 2010 VACCINES (1 of 2 - PCV13) INFLUENZA VACCINE 06/22/2018 Results Not on filefrom Last 3 Months
--- OUTSIDE RECORDS SUMMARY | 2018-06-14 17:13 | XMS REPORT | Continuity of Care Document ---
Author Author [facility] Organization [facility] Address Unknown Phone Unavailable Allergies Active Description Code Type Severity Reaction Onset Reported/Identified Relationship to Patient Clinical Status Yes codeine [id number] Drug Allergy Unknown N/A 03/23/2008 Yes gatifloxacin [id number] Drug Allergy Unknown N/A 03/23/2008 Yes nitrofurantoin [id number] Drug Allergy Unknown N/A 03/23/2008 Medications There is no data. Problems Date Dx Coded Attending Type Code Diagnosis Diagnosed By 05/04/2010 Ot 300.00 05/04/2010 Ot 401.9 05/04/2010 Ot 427.0 05/04/2010 Ot 493.90 05/04/2010 Ot 785.1 08/26/2010 Ot 461.9 08/26/2010 Ot 486 08/26/2010 Ot 493.92 08/26/2010 Ot 786.2 09/26/2010 Ot 300.00 09/26/2010 Ot 401.9 09/26/2010 Ot V58.69 11/02/2010 Ot 493.92 11/02/2010 Ot 786.07 12/12/2010 Ot 427.0 PAROX ATRIAL TACHYCARDIA 12/12/2010 Ot 785.1 PALPITATIONS 12/12/2010 Ot V58.69 OTH MED,LT, CURRENT USE 01/28/2011 Ot 427.0 PAROX ATRIAL TACHYCARDIA 01/28/2011 Ot 496 CHR AIRWAY OBSTRUCT NEC 01/28/2011 Ot 786.50 CHEST PAIN NOS 03/08/2012 Ot 305.1 TOBACCO USE DISORDER 03/08/2012 Ot 519.11 ACUTE BRONCHOSPASM 03/08/2012 Ot 786.05 SHORTNESS OF BREATH 06/06/2012 Ot 490 BRONCHITIS NOS 06/06/2012 Ot 786.50 CHEST PAIN NOS 06/06/2012 Ot V15.82 HISTORY OF TOBACCO USE 06/20/2012 Ot 493.92 ASTHMA, UNSPECIFIED, W (ACUTE) EXACERBAT 06/20/2012 Ot 786.05 SHORTNESS OF BREATH 06/20/2012 Ot V15.82 HISTORY OF TOBACCO USE 10/10/2012 Ot 719.41 JOINT PAIN- SHLDER 10/16/2012 Ot 401.9 HYPERTENSION NOS 10/16/2012 Ot 599.0 URIN TRACT INFECTION NOS 10/16/2012 Ot 787.02 NAUSEA ALONE 10/16/2012 Ot 793.19 OTHER NONSPECIFIC ABNORMAL FINDING OF ERIN 05/02/2013 SOLOMON SHAVER Ot 812.00 FX UP END HUMERUS NOS-CL 05/02/2013 SOLOMON SHAVER Ot 959.2 SHLDR/UPPER ARM INJ NOS 05/02/2013 SOLOMON SHAVER Ot E000.8 OTHER EXTERNAL CAUSE STATUS 05/02/2013 SOLOMON SHAVER Ot E849.0 ACCIDENT IN HOME 05/02/2013 SOLOMON SHAVER Ot E880.9 FALL ON STAIR/STEP NEC 05/21/2013 ESTER ALLRED MD Ot 276.8 HYPOPOTASSEMIA 05/21/2013 ESTER ALLRED MD Ot 300.02 GENERALIZED ANXIETY DIS 05/21/2013 ESTER ALLRED MD Ot 401.9 HYPERTENSION NOS 05/21/2013 ESTER ALLRED MD Ot 427.0 PAROX ATRIAL TACHYCARDIA 05/21/2013 ESTER ALLRED MD Ot 493.91 ASTHMA W STATUS ASTHMAT 05/21/2013 ESTER ALLRED MD Ot V54.11 AFTERCARE HEALING TRAUMATIC FX UPPER ARM 06/25/2013 RYAN PARDO APRN Ot 923.00 CONTUSION SHOULDER REG 06/25/2013 RYAN PARDO APRN Ot 959.2 SHLDR/UPPER ARM INJ NOS 06/25/2013 RYAN PARDO APRN Ot E000.8 OTHER EXTERNAL CAUSE STATUS 06/25/2013 RYAN PARDO APRN Ot E849.0 ACCIDENT IN HOME 06/25/2013 RYAN PARDO APRN Ot E917.4 STAT OB W/O SUB FALL NEC 07/05/2013 ESTER ALLRED MD Ot 008.8 VIRAL ENTERITIS NOS 07/05/2013 ESTER ALLRED MD Ot 041.49 OTHER AND UNSPECIFIED ESCHERICHIA COLI [ 07/05/2013 ESTER ALLRED MD Ot 276.51 DEHYDRATION 07/05/2013 ESTER ALLRED MD Ot 300.02 GENERALIZED ANXIETY DIS 07/05/2013 BRIGIDA FLOWERS ESTER Dao Ot 401.9 HYPERTENSION NOS 07/05/2013 BRIGIDA FLOWERS, ESTER Dao Ot 427.89 CARDIAC DYSRHYTHMIAS NEC 07/05/2013 BRIGIDA FLOWERS, ESTER Dao Ot 493.90 ASTHMA, UNSPECIFIED 07/05/2013 BRIGIDA FLOWERS, ESTER Dao Ot 530.81 ESOPHAGEAL REFLUX 07/05/2013 BRIGIDA FLOWERS, ESTER Dao Ot 599.0 URIN TRACT INFECTION NOS 07/05/2013 BRIGIDA FLOWERS, ESTER Dao Ot V58.69 OTH MED,LT,CURRENT USE 07/23/2013 RAINEY DO, GE K V06.1 TDAP DX 08/13/2013 MALIK MAGALLANES MD Ot 558.9 NONINF GASTROENTERIT NEC 08/13/2013 MALIK MAGALLANES MD Ot 787.01 NAUSEA WITH VOMITING 10/12/2013 TERA FLOWERS, INDIRA Dao Ot 490 BRONCHITIS NOS 10/12/2013 INDIRA HALEY MD Ot 786.2 COUGH 10/21/2013 MALIK MAGALLANES MD Ot 466.0 ACUTE BRONCHITIS 10/21/2013 MALIK MAGALLANES MD Ot 786.05 SHORTNESS OF BREATH 10/17/2014 Ot 473.9 10/21/2014 Ot 473.9 10/21/2014 BRIGIDA FLOWERS, ESTER Dao Ot 300.02 10/21/2014 BRIGIDA FLOWERS, ESTER Dao Ot 401.9 10/21/2014 BRIGIDA FLOWERS, ESTER Dao Ot 427.0 10/21/2014 BRIGIDA FLOWERS, ESTER Dao Ot 491.22 10/21/2014 BRIGIDA FLOWERS, ESTER Dao Ot 530.81 10/21/2014 BRIGIDA FLOWERS, ESTER Dao Ot 300.02 10/21/2014 BRIGIDA FLOWERS, ESTER Dao Ot 401.9 10/21/2014 BRIGIDA FLOWERS, ESTER Dao Ot 427.0 10/21/2014 BRIGIDA FLOWERS, ESTER Dao Ot 491.22 10/21/2014 BRIGIDA FLOWERS, ESTER Dao Ot 530.81 10/21/2014 Ot 473.9 10/21/2014 BRIGIDA FLOWERS, ESTER Dao Ot 300.02 10/21/2014 BRIGIDA FLOWERS, ESTER Dao Ot 401.9 10/21/2014 BRIGIDA FLOWERS, ESTER Dao Ot 427.0 10/21/2014 BRIGIDA FLOWERS, ESTER Dao Ot 491.22 10/21/2014 ESTER ALLRED MD Ot 530.81 10/21/2014 BRIGIDA FLOWERS, ESTER Dao Ot 300.02 10/21/2014 BRIGIDA FLOWERS, ESTER Dao Ot 401.9 10/21/2014 BRIGIDA FLOWERS, ESTER Dao Ot 427.0 10/21/2014 BRIGIDA FLOWERS, ESTER Dao Ot 491.22 10/21/2014 BRIGIDA FLOWERS, ESTER Dao Ot 530.81 10/21/2014 BRIGIDA FLOWERS, ESTER Dao Ot 300.02 10/21/2014 BRIGIDA FLOWERS, ESTER Dao Ot 401.9 10/21/2014 BRIGIDA FLOWERS, ESTER Dao Ot 427.0 10/21/2014 BRIGIDA FLOWERS, ESTER Dao Ot 491.22 10/21/2014 BRIGIDA FLOWERS, ESTER Dao Ot 530.81 10/21/2014 BRIGIDA FLOWERS, ESTER Dao Ot 300.02 10/21/2014 BRIGIDA FLOWERS, ESTER Dao Ot 401.9 10/21/2014 BRIGIDA FLOWERS, ESTER Dao Ot 427.0 10/21/2014 BRIGIDA FLOWERS, ESTER Dao Ot 491.22 10/21/2014 BRIGIDA FLOWERS, ESTER Dao Ot 530.81 10/21/2014 BRIGIDA FLOWERS, ESTER Dao Ot 300.02 10/21/2014 BRIGIDA FLOWERS, ESTER Dao Ot 401.9 10/21/2014 BRIGIDA FLOWERS, ESTER Dao Ot 427.0 10/21/2014 BRIGIDA FLOWERS, ESTER Dao Ot 491.22 10/21/2014 BRIGIDA FLOWERS, ESTER Dao Ot 530.81 10/21/2014 BRIGIDA FLOWERS, ESTER Dao Ot 300.02 10/21/2014 BRIGIDA FLOWERS, ESTER Dao Ot 401.9 10/21/2014 BRIGIDA FLOWERS, ESTER Dao Ot 427.0 10/21/2014 BRIGIDA FLOWERS, ESTER Dao Ot 491.22 10/21/2014 BRIGIDA FLOWERS, ESTER Dao Ot 530.81 10/24/2014 BRIGIDA FLOWERS, ESTER Dao Ot 300.02 10/24/2014 BRIGIDA FLOWERS, ESTER Dao Ot 401.9 10/24/2014 BRIGIDA FLOWERS, ESTER Dao Ot 427.0 10/24/2014 BRIGIDA FLOWERS, ESTER Dao Ot 491.22 10/24/2014 BRIGIDA FLOWERS, ESTER Dao Ot 530.81 10/24/2014 BRIGIDA FLOWERS, ESTER Dao Ot 041.2 PNEUMOCOCCUS INFECT NOS 10/24/2014 BRIGIDA FLOWERS, ESTER Dao Ot 300.02 GENERALIZED ANXIETY DIS 10/24/2014 BRIGIDA FLOWERS, ESTER Dao Ot 401.9 HYPERTENSION NOS 10/24/2014 BRIGIDA FLOWERS, ESTER Dao Ot 427.0 PAROX ATRIAL TACHYCARDIA 10/24/2014 ESTER ALLRED MD Ot 491.22 OBSTRUCTIVE CHRONIC BRONCHITIS WITH ACUT 10/24/2014 ESTER ALLRED MD Ot 493.22 CHRONIC OBSTRUCTIVE ASTHMA, W (ACUTE) EX 10/24/2014 BRIGIDA FLOWERS, ESTER Dao Ot 530.81 ESOPHAGEAL REFLUX 05/24/2015 ASHTYN ZHANG DO Ot 401.9 HYPERTENSION NOS 05/24/2015 ASHTYN ZHANG DO Ot 486 PNEUMONIA, ORGANISM NOS 05/24/2015 ASHTYN ZHANG DO Ot 786.05 SHORTNESS OF BREATH 07/18/2015 RYAN PARDO APRN Ot F17.211 NICOTINE DEPENDENCE, CIGARETTES, IN [place] 07/18/2015 RYAN PARDO APRN Ot M19.031 PRIMARY OSTEOARTHRITIS, RIGHT WRIST 07/18/2015 RYAN PARDO APRN Ot S92.351A DISP FX OF FIFTH METATARSAL BONE, RIGHT 07/18/2015 RYAN PARDO APRN Ot W01.0XXA FALL SAME LEV FROM SLIP/TRIP W/O STRIKE 07/18/2015 RYAN PARDO APRN Ot Y92.017 GARDEN OR YARD IN SINGLE-FAMILY (PRIVATE 08/04/2015 RYAN PARDO APRN Ot J44.9 CHRONIC OBSTRUCTIVE PULMONARY DISEASE, U 12/11/2015 OJ RICH AZRA K Ot I10 ESSENTIAL (PRIMARY) HYPERTENSION 12/11/2015 OJ RICH AZRA K Ot J40 BRONCHITIS, NOT SPECIFIED ACUTE OR CH 12/11/2015 ROSEMARIE MCWILLIAMS DOA Robert Ot J45.901 UNSPECIFIED ASTHMA WITH (ACUTE) EXACERBA 12/13/2015 ROSEMARIE MCWILLIAMS DOA K Ot I10 12/13/2015 ROSEMARIE MCWILLIAMS DOA K Ot J40 12/13/2015 OJ RICH AZRA K Ot J45.901 12/26/2015 BRIGIDA FLOWERS, ESTER Dao Ot R30.0 12/26/2015 ESTER ALLRED MD Ot R35.0 12/29/2015 BRIGIDA FLOWERS, ESTER Dao Ot R30.0 12/29/2015 ESTER ALLRED MD Ot R35.0 01/01/2016 ESTER ALLRED MD Ot N39.0 01/10/2016 ESTER ALLRED MD Ot R30.0 DYSURIA 01/10/2016 ESTER ALLRED MD Ot R35.0 FREQUENCY OF MICTURITION 01/10/2016 ESTER ALLRED MD Ot N39.0 URINARY TRACT INFECTION, SITE NOT SPECIF 01/16/2016 ESTER ALLRED MD Ot R31.9 HEMATURIA, UNSPECIFIED 01/16/2016 ESTER ALLRED MD Ot R53.83 OTHER FATIGUE 01/16/2016 ESTER ALLRED MD Ot R31.0 GROSS HEMATURIA 01/16/2016 ESTER ALLRED MD Ot R53.83 OTHER FATIGUE 01/26/2016 ESTER ALLRED MD Ot R31.9 HEMATURIA, UNSPECIFIED 01/26/2016 ESTER ALLRED MD Ot R53.83 OTHER FATIGUE 01/31/2016 ESTER ALLRED MD Ot R31.0 GROSS HEMATURIA 01/31/2016 ESTER ALLRED MD Ot R53.83 OTHER FATIGUE 01/31/2016 ESTER ALLRED MD Ot N85.2 HYPERTROPHY OF UTERUS 04/30/2016 ESTER ALLRED MD Ot R30.0 DYSURIA 04/30/2016 ESTER ALLRED MD Ot R35.0 FREQUENCY OF MICTURITION 04/30/2016 ESTER ALLRED MD Ot R31.0 GROSS HEMATURIA 04/30/2016 ESTER ALLRED MD Ot R53.83 OTHER FATIGUE 04/30/2016 ESTER ALLRED MD Ot N39.0 URINARY TRACT INFECTION, SITE NOT SPECIF 04/30/2016 ESTER ALLRED MD Ot R31.9 HEMATURIA, UNSPECIFIED 04/30/2016 ESTER ALLRED MD Ot R53.83 OTHER FATIGUE 04/30/2016 ESTER ALLRED MD Ot N85.2 HYPERTROPHY OF UTERUS 05/02/2016 YAHIR THOMAS MD Ot I10 ESSENTIAL (PRIMARY) HYPERTENSION 05/02/2016 YAHIR THOMAS MD Ot I44.0 ATRIOVENTRICULAR BLOCK, FIRST DEGREE 05/02/2016 YAHIR THOMAS MD Ot I47.1 SUPRAVENTRICULAR TACHYCARDIA 05/02/2016 YAHIR THOMAS MD Ot J45.909 UNSPECIFIED ASTHMA, UNCOMPLICATED 05/02/2016 YAHIR THOMAS MD Ot R94.31 ABNORMAL ELECTROCARDIOGRAM [ECG] [EKG] 05/03/2016 YAHIR THOMAS MD Ot I10 ESSENTIAL (PRIMARY) HYPERTENSION 05/03/2016 YAHIR THOMAS MD Ot I44.0 ATRIOVENTRICULAR BLOCK, FIRST DEGREE 05/03/2016 YAHIR THOMAS MD Ot I47.1 SUPRAVENTRICULAR TACHYCARDIA 05/03/2016 YAHIR THOMAS MD Ot J45.909 UNSPECIFIED ASTHMA, UNCOMPLICATED 05/03/2016 YAHIR THOMAS MD Ot R94.31 ABNORMAL ELECTROCARDIOGRAM [ECG] [EKG] 05/03/2016 INDIRA HALEY MD Ot R00.2 PALPITATIONS 05/03/2016 INDIRA HALEY MD Ot Z79.899 OTHER MCC (CURRENT) DRUG THERAPY 05/06/2016 INDIRA HALEY MD Ot R00.2 PALPITATIONS 05/06/2016 INDIRA HALEY MD Ot Z79.899 OTHER NEW ORDER CLERK (CURRENT) DRUG THERAPY 10/26/2016 ESTER HENSLEY MD Ot J45.909 UNSPECIFIED ASTHMA, UNCOMPLICATED 10/26/2016 ESTER HENSLEY MD Ot N39.0 URINARY TRACT INFECTION, SITE NOT SPECIF 10/26/2016 ESTER HENSLEY MD Ot R11.0 NAUSEA 10/26/2016 ESTER HENSLEY MD Ot R51 HEADACHE 10/26/2016 ESTER ALLRED MD Ot R30.0 DYSURIA 10/26/2016 ESTER ALLRED MD Ot R35.0 FREQUENCY OF MICTURITION 10/26/2016 ESTER ALLRED MD Ot R31.0 GROSS HEMATURIA 10/26/2016 ESTER ALLRED MD Ot R53.83 OTHER FATIGUE 10/26/2016 ESTER ALLRED MD Ot N39.0 URINARY TRACT INFECTION, SITE NOT SPECIF 10/26/2016 ESTER ALLRED MD Ot R31.9 HEMATURIA, UNSPECIFIED 10/26/2016 ESTER ALLRED MD Ot R53.83 OTHER FATIGUE 10/26/2016 ESTER ALLRED MD Ot N85.2 HYPERTROPHY OF UTERUS 10/26/2016 YAHIR THOMAS MD Ot I10 ESSENTIAL (PRIMARY) HYPERTENSION 10/26/2016 YAHIR THOMAS MD Ot I44.0 ATRIOVENTRICULAR BLOCK, FIRST DEGREE 10/26/2016 YAHIR THOMAS MD Ot I47.1 SUPRAVENTRICULAR TACHYCARDIA 10/26/2016 YAHIR THOMAS MD Ot J45.909 UNSPECIFIED ASTHMA, UNCOMPLICATED 10/26/2016 YAHIR THOMAS MD Ot R94.31 ABNORMAL ELECTROCARDIOGRAM [ECG] [EKG] 10/26/2016 ESTER ALLRED MD Ot R30.0 DYSURIA 10/26/2016 ESTER ALLRED MD Ot R35.0 FREQUENCY OF MICTURITION 10/26/2016 ESTER ALLRED MD Ot R31.0 GROSS HEMATURIA 10/26/2016 ESTER ALLRED MD Ot R53.83 OTHER FATIGUE 10/26/2016 ESTER ALLRED MD Ot N39.0 URINARY TRACT INFECTION, SITE NOT SPECIF 10/26/2016 ESTER ALLRED MD Ot R31.9 HEMATURIA, UNSPECIFIED 10/26/2016 ESTER ALLRED MD Ot R53.83 OTHER FATIGUE 10/26/2016 ESTER ALLRED MD Ot N85.2 HYPERTROPHY OF UTERUS 10/26/2016 YAHIR THOMAS MD Ot I10 ESSENTIAL (PRIMARY) HYPERTENSION 10/26/2016 YAHIR THOMAS MD Ot I44.0 ATRIOVENTRICULAR BLOCK, FIRST DEGREE 10/26/2016 YAHIR THOMAS MD Ot I47.1 SUPRAVENTRICULAR TACHYCARDIA 10/26/2016 YAHIR THOMAS MD Ot J45.909 UNSPECIFIED ASTHMA, UNCOMPLICATED 10/26/2016 YAHIR THOMAS MD Ot R94.31 ABNORMAL ELECTROCARDIOGRAM [ECG] [EKG] 10/27/2016 ESTER HENSLEY MD Ot J45.909 UNSPECIFIED ASTHMA, UNCOMPLICATED 10/27/2016 ESTER HENSLEY MD Ot N39.0 URINARY TRACT INFECTION, SITE NOT SPECIF 10/27/2016 ESTER HENSLEY MD Ot R11.0 NAUSEA 10/27/2016 ESTER HENSLEY MD Ot R51 HEADACHE 11/07/2016 ESTER HENSLEY MD Ot J45.909 UNSPECIFIED ASTHMA, UNCOMPLICATED 11/07/2016 ESTER HENSLEY MD Ot N39.0 URINARY TRACT INFECTION, SITE NOT SPECIF 11/07/2016 ESTER HENSLEY MD Ot R11.0 NAUSEA 11/07/2016 ESTER HENSLEY MD Ot R51 HEADACHE 02/21/2017 RYAN PARDO APRN Ot I10 ESSENTIAL (PRIMARY) HYPERTENSION 02/21/2017 RYAN PARDO APRN Ot R00.0 TACHYCARDIA, UNSPECIFIED 02/21/2017 RYAN PARDO APRN Ot Z79.899 OTHER NEW ORDER CLERK (CURRENT) DRUG THERAPY 02/23/2017 RYAN PARDO APRN Ot I10 ESSENTIAL (PRIMARY) HYPERTENSION 02/23/2017 RYAN PARDO APRN Ot R00.0 TACHYCARDIA, UNSPECIFIED 02/23/2017 RYAN PARDO APRN Ot Z79.899 OTHER MCC (CURRENT) DRUG THERAPY 07/08/2017 BRIGIDA FLOWERS, ESTER Dao Ot R30.0 DYSURIA 07/08/2017 ESTER ALLRED MD Ot R35.0 FREQUENCY OF MICTURITION 07/08/2017 ESTER ALLERD MD Ot R31.0 GROSS HEMATURIA 07/08/2017 ESTER ALLRED MD Ot R53.83 OTHER FATIGUE 07/08/2017 ESTER ALLRED MD Ot N39.0 URINARY TRACT INFECTION, SITE NOT SPECIF 07/08/2017 ESTER ALLRED MD Ot R31.9 HEMATURIA, UNSPECIFIED 07/08/2017 ESTER ALLRED MD Ot R53.83 OTHER FATIGUE 07/08/2017 ESTER ALLRED MD Ot N85.2 HYPERTROPHY OF UTERUS 07/08/2017 YAHIR THOMAS MD Ot I10 ESSENTIAL (PRIMARY) HYPERTENSION 07/08/2017 YAHIR THOMAS MD Ot I44.0 ATRIOVENTRICULAR BLOCK, FIRST DEGREE 07/08/2017 YAHIR THOMAS MD Ot I47.1 SUPRAVENTRICULAR TACHYCARDIA 07/08/2017 YAHIR THOMAS MD Ot J45.909 UNSPECIFIED ASTHMA, UNCOMPLICATED 07/08/2017 YAHIR THOMAS MD Ot R94.31 ABNORMAL ELECTROCARDIOGRAM [ECG] [EKG] 08/03/2017 RYAN PARDO APRN Ot F32.9 MAJOR DEPRESSIVE DISORDER, SINGLE EPISOD 08/03/2017 RYAN PARDO APRN Ot F41.9 ANXIETY DISORDER, UNSPECIFIED 08/03/2017 RYAN PARDO APRN Ot I10 ESSENTIAL (PRIMARY) HYPERTENSION 08/03/2017 RYAN PARDO APRN Ot J45.909 UNSPECIFIED ASTHMA, UNCOMPLICATED 08/03/2017 RYAN PARDO APRN Ot K21.9 GASTRO-ESOPHAGEAL REFLUX DISEASE WITHOUT 08/03/2017 RYAN PARDO APRN Ot R09.81 NASAL CONGESTION 08/03/2017 RYAN PARDO SUPPLY CHAIN SPECIALIST Ot R51 HEADACHE 08/03/2017 RYAN PARDO SUPPLY CHAIN SPECIALIST Ot Z82.49 FAMILY HX OF ISCHEM HEART DIS AND OTH DI 08/03/2017 PARDORYAN SUPPLY CHAIN SPECIALIST Ot Z87.891 PERSONAL HISTORY OF NICOTINE DEPENDENCE 08/03/2017 RYAN PARDO SUPPLY CHAIN SPECIALIST Ot Z90.49 ACQUIRED ABSENCE OF OTHER SPECIFIED PART 08/19/2017 MONTSERRAT JESSICA MD T Ot F32.9 MAJOR DEPRESSIVE DISORDER, SINGLE EPISOD 08/19/2017 MONTSERRAT JESSICA MD Ot F41.9 ANXIETY DISORDER, UNSPECIFIED 08/19/2017 MONTSERRAT JESSICA MD Ot I10 ESSENTIAL (PRIMARY) HYPERTENSION 08/19/2017 MONTSERRAT JESSICA MD Ot J44.1 CHRONIC OBSTRUCTIVE PULMONARY DISEASE W 08/19/2017 MONTSERRAT JESSICA MD Ot K21.9 GASTRO-ESOPHAGEAL REFLUX DISEASE WITHOUT 08/19/2017 MONTSERRAT JESSICA MD Ot R06.02 SHORTNESS OF BREATH 08/19/2017 MONTSERRAT JESSICA MD Ot Z77.22 CNTCT W AND EXPSR TO ENVIRON TOBACCO SMO 08/19/2017 MONTSERRAT JESSICA MD Ot Z82.49 FAMILY HX OF ISCHEM HEART DIS AND OTH DI 08/19/2017 MONTSERRAT JESSICA MD Ot Z90.89 ACQUIRED ABSENCE OF OTHER ORGANS 08/27/2017 MONTSERRAT JESSICA MD Ot F32.9 MAJOR DEPRESSIVE DISORDER, SINGLE EPISOD 08/27/2017 MONTSERRAT JESSICA MD Ot F41.9 ANXIETY DISORDER, UNSPECIFIED 08/27/2017 MONTSERRAT JESSICA MD Ot I10 ESSENTIAL (PRIMARY) HYPERTENSION 08/27/2017 MONTSERRAT JESSICA MD T Ot J44.1 CHRONIC OBSTRUCTIVE PULMONARY DISEASE W 08/27/2017 MONTSERRAT JESSICA MD Ot K21.9 GASTRO-ESOPHAGEAL REFLUX DISEASE WITHOUT 08/27/2017 MONTSERRAT JESSICA MD Ot R06.02 SHORTNESS OF BREATH 08/27/2017 MONTSERRAT JESSICA MD Ot Z77.22 CNTCT W AND EXPSR TO ENVIRON TOBACCO SMO 08/27/2017 ARACELY FLOWERS, MONTSERRAT Garcia Ot Z82.49 FAMILY HX OF ISCHEM HEART DIS AND OTH DI 08/27/2017 ARACELY FLOWERS, MONTSERRAT Garcia Ot Z90.89 ACQUIRED ABSENCE OF OTHER ORGANS 12/13/2017 BRIGIDA FLOWERS, ESTER Dao Ot R30.0 DYSURIA 12/13/2017 ESTER ALLRED MD Ot R35.0 FREQUENCY OF MICTURITION 12/13/2017 ESTER ALLRED MD Ot R31.0 GROSS HEMATURIA 12/13/2017 ESTER ALLRED MD Ot R53.83 OTHER FATIGUE 12/13/2017 ESTER ALLRED MD Ot N39.0 URINARY TRACT INFECTION, SITE NOT SPECIF 12/13/2017 ESTER ALLRED MD Ot R31.9 HEMATURIA, UNSPECIFIED 12/13/2017 ESTER ALLRED MD Ot R53.83 OTHER FATIGUE 12/13/2017 ESTER ALLRED MD Ot N85.2 HYPERTROPHY OF UTERUS 12/13/2017 YAHIR THOMAS MD Ot I10 ESSENTIAL (PRIMARY) HYPERTENSION 12/13/2017 YAHIR THOMAS MD Ot I44.0 ATRIOVENTRICULAR BLOCK, FIRST DEGREE 12/13/2017 YAHIR THOMAS MD Ot I47.1 SUPRAVENTRICULAR TACHYCARDIA 12/13/2017 YAHIR THOAMS MD Ot J45.909 UNSPECIFIED ASTHMA, UNCOMPLICATED 12/13/2017 YAHIR THOMAS MD Ot R94.31 ABNORMAL ELECTROCARDIOGRAM [ECG] [EKG] 12/13/2017 ARSLAN COHEN MD, Ot D64.9 ANEMIA, UNSPECIFIED 12/13/2017 ARSLAN COHEN MD, Ot F32.9 MAJOR DEPRESSIVE DISORDER, SINGLE EPISOD 12/13/2017 ARSLAN COHEN MD, Ot F41.9 ANXIETY DISORDER, UNSPECIFIED 12/13/2017 ARSLAN COHEN MD, Ot I10 ESSENTIAL (PRIMARY) HYPERTENSION 12/13/2017 ARSLAN COHEN MD, Ot I16.0 HYPERTENSIVE URGENCY 12/13/2017 ARSLAN COHEN MD Ot I47.1 SUPRAVENTRICULAR TACHYCARDIA 12/13/2017 ARSLAN COHEN MD, Ot J01.90 ACUTE SINUSITIS, UNSPECIFIED 12/13/2017 ARSLAN COHEN MD, Ot J44.9 CHRONIC OBSTRUCTIVE PULMONARY DISEASE, U 12/13/2017 ARSLAN COHEN MD Ot J45.909 UNSPECIFIED ASTHMA, UNCOMPLICATED 12/13/2017 ARSLAN COHEN MD Ot K21.9 GASTRO-ESOPHAGEAL REFLUX DISEASE WITHOUT 12/13/2017 ARSLAN COHEN MD Ot R11.0 NAUSEA 12/13/2017 ARSLAN COHEN MD Ot R82.71 BACTERIURIA 12/13/2017 ARSLAN COHEN MD Ot Z79.899 OTHER NEW ORDER CLERK (CURRENT) DRUG THERAPY 12/13/2017 ARSLAN COHEN MD Ot D64.9 ANEMIA, UNSPECIFIED 12/13/2017 ARSLAN COHEN MD Ot F32.9 MAJOR DEPRESSIVE DISORDER, SINGLE EPISOD 12/13/2017 ARSLAN COHEN MD Ot F41.9 ANXIETY DISORDER, UNSPECIFIED 12/13/2017 ARSLAN COHEN MD Ot I10 ESSENTIAL (PRIMARY) HYPERTENSION 12/13/2017 ARSLAN COHEN MD Ot I16.0 HYPERTENSIVE URGENCY 12/13/2017 ARSLAN COHEN MD Ot I47.1 SUPRAVENTRICULAR TACHYCARDIA 12/13/2017 ARSLAN COHEN MD Ot J01.90 ACUTE SINUSITIS, UNSPECIFIED 12/13/2017 ARSLAN COHEN MD Ot J44.9 CHRONIC OBSTRUCTIVE PULMONARY DISEASE, U 12/13/2017 ARSLAN COHEN MD Ot J45.909 UNSPECIFIED ASTHMA, UNCOMPLICATED 12/13/2017 ARSLAN COHEN MD Ot K21.9 GASTRO-ESOPHAGEAL REFLUX DISEASE WITHOUT 12/13/2017 ARSLAN COHEN MD Ot R11.0 NAUSEA 12/13/2017 ARSLAN COHEN MD Ot R82.71 BACTERIURIA 12/13/2017 ARSLAN COHEN MD Ot Z79.899 OTHER NEW ORDER CLERK (CURRENT) DRUG THERAPY 01/02/2018 ESTER ALLRED MD Ot R30.0 DYSURIA 01/02/2018 ESTER ALLRED MD Ot R35.0 FREQUENCY OF MICTURITION 01/02/2018 ESTER ALLRED MD Ot R31.0 GROSS HEMATURIA 01/02/2018 ESTER ALLRED MD Ot R53.83 OTHER FATIGUE 01/02/2018 ESTER ALLRED MD Ot N39.0 URINARY TRACT INFECTION, SITE NOT SPECIF 01/02/2018 ESTER ALLRED MD Ot R31.9 HEMATURIA, UNSPECIFIED 01/02/2018 ESTER ALLRED MD Ot R53.83 OTHER FATIGUE 01/02/2018 ESTER ALLRED MD Ot N85.2 HYPERTROPHY OF UTERUS 01/02/2018 YAHIR THOMAS MD Ot I10 ESSENTIAL (PRIMARY) HYPERTENSION 01/02/2018 YAHIR THOMAS MD Ot I44.0 ATRIOVENTRICULAR BLOCK, FIRST DEGREE 01/02/2018 YAHIR THOMAS MD Ot I47.1 SUPRAVENTRICULAR TACHYCARDIA 01/02/2018 YAHIR THOMAS MD Ot J45.909 UNSPECIFIED ASTHMA, UNCOMPLICATED 01/02/2018 YAHIR THOMAS MD Ot R94.31 ABNORMAL ELECTROCARDIOGRAM [ECG] [EKG] 01/02/2018 VALERIA FLOWERS, M MARISA Ot I10 ESSENTIAL (PRIMARY) HYPERTENSION 01/02/2018 VALERIA FLOWERS, M MARISA Ot I47.1 SUPRAVENTRICULAR TACHYCARDIA 01/02/2018 VALERIA FLOWERS, M MARISA Ot I10 ESSENTIAL (PRIMARY) HYPERTENSION 01/02/2018 VALERIA FLOWERS, Skyler [place] Ot I47.1 SUPRAVENTRICULAR TACHYCARDIA 01/02/2018 VALERIA FLOWERS, M MARISA Ot I10 ESSENTIAL (PRIMARY) HYPERTENSION 01/02/2018 VALERIA FLOWERS, M MARISA Ot I47.1 SUPRAVENTRICULAR TACHYCARDIA 01/19/2018 ESTER ALLRED MD Ot R30.0 DYSURIA 01/19/2018 ESTER ALLRED MD Ot R35.0 FREQUENCY OF MICTURITION 01/19/2018 ESTER ALLRED MD Ot R31.0 GROSS HEMATURIA 01/19/2018 ESTER ALLRED MD Ot R53.83 OTHER FATIGUE 01/19/2018 ETSER ALLRED MD Ot N39.0 URINARY TRACT INFECTION, SITE NOT SPECIF 01/19/2018 ESTER ALLRED MD Ot R31.9 HEMATURIA, UNSPECIFIED 01/19/2018 ESTER ALLRED MD Ot R53.83 OTHER FATIGUE 01/19/2018 ESTER ALLRED MD Ot N85.2 HYPERTROPHY OF UTERUS 01/19/2018 YAHIR THOMAS MD Ot I10 ESSENTIAL (PRIMARY) HYPERTENSION 01/19/2018 YAHIR THOMAS MD Ot I44.0 ATRIOVENTRICULAR BLOCK, FIRST DEGREE 01/19/2018 YAHIR THOMAS MD Ot I47.1 SUPRAVENTRICULAR TACHYCARDIA 01/19/2018 YAHIR THOMAS MD Ot J45.909 UNSPECIFIED ASTHMA, UNCOMPLICATED 01/19/2018 YAHIR THOMAS MD Ot R94.31 ABNORMAL ELECTROCARDIOGRAM [ECG] [EKG] 01/19/2018 Skyler SHAW MD Ot I10 ESSENTIAL (PRIMARY) HYPERTENSION 01/19/2018 Skyler SHAW MD Ot I47.1 SUPRAVENTRICULAR TACHYCARDIA 01/19/2018 Skyler SHAW MD Ot I10 ESSENTIAL (PRIMARY) HYPERTENSION 01/19/2018 Skyler SHAW MD Ot I47.1 SUPRAVENTRICULAR TACHYCARDIA 01/20/2018 ESTER ALLRED MD Ot R30.0 DYSURIA 01/20/2018 ESTER ALLRED MD Ot R35.0 FREQUENCY OF MICTURITION 01/20/2018 ESTER ALLRED MD Ot R31.0 GROSS HEMATURIA 01/20/2018 ESTER ALLRED MD Ot R53.83 OTHER FATIGUE 01/20/2018 ESTER ALLRED MD Ot N39.0 URINARY TRACT INFECTION, SITE NOT SPECIF 01/20/2018 ESTRE ALLRED MD Ot R31.9 HEMATURIA, UNSPECIFIED 01/20/2018 ESTER ALLRED MD Ot R53.83 OTHER FATIGUE 01/20/2018 ESTER ALLRED MD Ot N85.2 HYPERTROPHY OF UTERUS 01/20/2018 YAHIR THOMAS MD Ot I10 ESSENTIAL (PRIMARY) HYPERTENSION 01/20/2018 YAHIR THOMAS MD Ot I44.0 ATRIOVENTRICULAR BLOCK, FIRST DEGREE 01/20/2018 YAHIR THOMAS MD Ot I47.1 SUPRAVENTRICULAR TACHYCARDIA 01/20/2018 YAHIR THOMAS MD Ot J45.909 UNSPECIFIED ASTHMA, UNCOMPLICATED 01/20/2018 YAHIR THOMAS MD Ot R94.31 ABNORMAL ELECTROCARDIOGRAM [ECG] [EKG] 01/20/2018 Skyler SHAW MD Ot I10 ESSENTIAL (PRIMARY) HYPERTENSION 01/20/2018 Skyler SHAW MD Ot I47.1 SUPRAVENTRICULAR TACHYCARDIA 01/20/2018 Skyler SHAW MD Ot I10 ESSENTIAL (PRIMARY) HYPERTENSION 01/20/2018 VALERIA FLOWERS, Skyler CUNNINGHAM Ot I47.1 SUPRAVENTRICULAR TACHYCARDIA 02/06/2018 ESTER ALLRED MD Ot E21.3 HYPERPARATHYROIDISM, UNSPECIFIED 02/06/2018 ESTER ALLRED MD Ot Z13.820 ENCOUNTER FOR SCREENING FOR OSTEOPOROSIS 03/23/2018 Skyler SHAW MD Ot I10 ESSENTIAL (PRIMARY) HYPERTENSION 03/23/2018 Skyler SHAW MD Ot I47.1 SUPRAVENTRICULAR TACHYCARDIA 03/25/2018 Skyler SHAW MD Ot I10 ESSENTIAL (PRIMARY) HYPERTENSION 03/25/2018 Skyler SHAW MD Ot I47.1 SUPRAVENTRICULAR TACHYCARDIA 04/13/2018 ESTER ALLRED MD Ot R30.0 DYSURIA 04/13/2018 ESTER ALLRED MD Ot R35.0 FREQUENCY OF MICTURITION 04/13/2018 ESTER ALLRED MD Ot R31.0 GROSS HEMATURIA 04/13/2018 ESTER ALLRED MD Ot R53.83 OTHER FATIGUE 04/13/2018 ESTER ALLRED MD Ot N39.0 URINARY TRACT INFECTION, SITE NOT SPECIF 04/13/2018 ESTER ALLRED MD Ot R31.9 HEMATURIA, UNSPECIFIED 04/13/2018 ESTER ALLRED MD Ot R53.83 OTHER FATIGUE 04/13/2018 ESTER ALLRED MD Ot N85.2 HYPERTROPHY OF UTERUS 04/13/2018 YAHIR THOMAS MD Ot I10 ESSENTIAL (PRIMARY) HYPERTENSION 04/13/2018 YAHIR THOMAS MD Ot I44.0 ATRIOVENTRICULAR BLOCK, FIRST DEGREE 04/13/2018 YAHIR THOMAS MD Ot I47.1 SUPRAVENTRICULAR TACHYCARDIA 04/13/2018 YAHIR THOMAS MD Ot J45.909 UNSPECIFIED ASTHMA, UNCOMPLICATED 04/13/2018 YAHIR THOMAS MD Ot R94.31 ABNORMAL ELECTROCARDIOGRAM [ECG] [EKG] 04/13/2018 ESTER ALLRED MD Ot E21.3 HYPERPARATHYROIDISM, UNSPECIFIED 04/13/2018 ESTER ALLRED MD Ot Z13.820 ENCOUNTER FOR SCREENING FOR OSTEOPOROSIS 04/13/2018 Skyler SHAW MD Ot I10 ESSENTIAL (PRIMARY) HYPERTENSION 04/13/2018 VALERIA FLOWERS, M MARISA Ot I47.1 SUPRAVENTRICULAR TACHYCARDIA 04/13/2018 VALERIA FLOWERS, M MARISA Ot I10 ESSENTIAL (PRIMARY) HYPERTENSION 04/13/2018 VALERIA FLOWERS, M MARISA Ot I47.1 SUPRAVENTRICULAR TACHYCARDIA 04/13/2018 MONTSERRAT JESSICA MD Ot E87.5 HYPERKALEMIA 04/13/2018 MONTSERRAT JESSICA MD Ot F32.9 MAJOR DEPRESSIVE DISORDER, SINGLE EPISOD 04/13/2018 MONTSERRAT JESSICA MD Ot F41.9 ANXIETY DISORDER, UNSPECIFIED 04/13/2018 MONTSERRAT JESSICA MD, Ot I10 ESSENTIAL (PRIMARY) HYPERTENSION 04/13/2018 MONTSERRAT JESSICA MD Ot I47.1 SUPRAVENTRICULAR TACHYCARDIA 04/13/2018 MONTSERRAT JESSICA MD, Ot J44.9 CHRONIC OBSTRUCTIVE PULMONARY DISEASE, U 04/13/2018 MONTSERRAT JESSICA MD Ot K21.9 GASTRO-ESOPHAGEAL REFLUX DISEASE WITHOUT 04/13/2018 MONTSERRAT JESSICA MD Ot N39.0 URINARY TRACT INFECTION, SITE NOT SPECIF 04/13/2018 MONTSERRAT JESSICA MD Ot R07.89 OTHER CHEST PAIN 04/13/2018 MONTSERRAT JESSICA MD, Ot Z77.22 CNTCT W AND EXPSR TO ENVIRON TOBACCO SMO 04/13/2018 MONTSERRAT JESSICA MD, Ot Z79.51 MCC (CURRENT) USE OF INHALED STERO 04/13/2018 MONTSERRAT JESSICA MD, Ot Z82.49 FAMILY HX OF [facility] 04/13/2018 MONTSERRAT JESSICA MD, Ot Z88.1 ALLERGY STATUS TO OTHER ANTIBIOTIC AGENT 04/13/2018 MONTSERRAT JESSICA MD, Ot Z88.5 ALLERGY STATUS TO NARCOTIC AGENT STATUS 04/13/2018 MONTSERRAT JESSICA MD Ot Z88.8 ALLERGY STATUS TO OTH DRUG/MEDS/BIOL SUB 04/13/2018 MONTSERRAT JESSICA MD Ot Z90.89 ACQUIRED ABSENCE OF OTHER ORGANS 04/15/2018 MONTSERRAT JESSICA MD, Ot E87.5 HYPERKALEMIA 04/15/2018 MONTSERRAT JESSICA MD, Ot F32.9 MAJOR DEPRESSIVE DISORDER, SINGLE EPISOD 04/15/2018 MONTSERRAT JESSICA MD, Ot F41.9 ANXIETY DISORDER, UNSPECIFIED 04/15/2018 MONTSERRAT JESSICA MD, Ot I10 ESSENTIAL (PRIMARY) HYPERTENSION 04/15/2018 MONTSERRAT JESSICA MD, Ot I47.1 SUPRAVENTRICULAR TACHYCARDIA 04/15/2018 MONTSERRAT JESSICA MD, Ot J44.9 CHRONIC OBSTRUCTIVE PULMONARY DISEASE, U 04/15/2018 MONTSERRAT JESSICA MD, Ot K21.9 GASTRO-ESOPHAGEAL REFLUX DISEASE WITHOUT 04/15/2018 MONTSERRAT JESSICA MD, Ot N39.0 URINARY TRACT INFECTION, SITE NOT SPECIF 04/15/2018 MONTSERRAT JESSICA MD, Ot R07.89 OTHER CHEST PAIN 04/15/2018 MONTSERRAT JESSICA MD, Ot Z77.22 CNTCT W AND EXPSR TO ENVIRON TOBACCO SMO 04/15/2018 MONTSERRAT JESSICA MD, Ot 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 Results Test Result Range Complete blood count (CBC) with automated white blood cell (WBC) differential - 05/03/16 17:40 Blood leukocytes automated count (number/volume) 10.6 10*3/uL 4.3-11.0 Blood erythrocytes automated count (number/volume) 5.20 10*6/uL 4.35-5.85 Venous blood hemoglobin measurement (mass/volume) 15.8 g/dL 11.5-16.0 Blood hematocrit (volume fraction) 46 % 35-52 Automated erythrocyte mean corpuscular volume 89 [foz_us] 80-99 Automated erythrocyte mean corpuscular hemoglobin (mass per erythrocyte) 30 pg 25-34 Automated erythrocyte mean corpuscular hemoglobin concentration measurement ( mass/volume) 34 g/dL 32-36 Automated erythrocyte distribution width ratio 13.6 % 10.0-14.5 Automated blood platelet count (count/volume) 310 10*3/uL 130-400 Automated blood platelet mean volume measurement 9.6 [foz_us] 7.4-10.4 Automated blood neutrophils/100 leukocytes 55 % 42-75 Automated blood lymphocytes/100 leukocytes 26 % 12-44 Blood monocytes/100 leukocytes 10 % 0-12 Automated blood eosinophils/100 leukocytes 8 % 0-10 Automated blood basophils/100 leukocytes 1 % 0-10 Blood neutrophils automated count (number/volume) 5.8 10*3 1.8-7.8 Blood lymphocytes automated count (number/volume) 2.8 10*3 1.0-4.0 Blood monocytes automated count (number/volume) 1.0 10*3 0.0-1.0 Automated eosinophil count 0.8 10*3/uL 0.0-0.3 Automated blood basophil count (count/volume) 0.1 10*3/uL 0.0-0.1 PT panel in platelet poor plasma by coagulation assay - 05/03/16 17:40 Prothrombin time (PT) in platelet poor plasma by coagulation assay 12.3 s 12.2-14.7 INR in platelet poor plasma or blood by coagulation assay 0.9 0.8-1.4 Activated partial thromboplastin time (aPTT) in platelet poor plasma bycoagulation assay - 05/03/16 17:40 Activated partial thromboplastin time (aPTT) in platelet poor plasma bycoagulation assay 29 s 24-35 Comprehensive metabolic panel - 05/03/16 17:40 Serum or plasma sodium measurement (moles/volume) 141 mmol/L 135-145 Serum or plasma potassium measurement (moles/volume) 3.8 mmol/L 3.6-5.0 Serum or plasma chloride measurement (moles/volume) 106 mmol/L 98-107 Carbon dioxide 25 mmol/L 21-32 Serum or plasma anion gap determination (moles/volume) 10 mmol/L 5-14 Serum or plasma urea nitrogen measurement (mass/volume) 12 mg/dL 7-18 Serum or plasma creatinine measurement (mass/volume) 0.83 mg/dL 0.60-1.30 Serum or plasma urea nitrogen/creatinine mass ratio 14 NRG Serum or plasma creatinine measurement with calculation of estimated glomerular filtration rate > NRG Serum or plasma glucose measurement (mass/volume) 110 mg/dL 70-105 Serum or plasma calcium measurement (mass/volume) 9.6 mg/dL 8.5-10.1 Serum or plasma total bilirubin measurement (mass/volume) 0.7 mg/dL 0.1-1.0 Serum or plasma alkaline phosphatase measurement (enzymatic activity/volume) 66 U/L 40-136 Serum or plasma aspartate aminotransferase measurement (enzymatic activity/ volume) 16 U/L 5-34 Serum or plasma alanine aminotransferase measurement (enzymatic activity/volume ) 18 U/L 0-55 Serum or plasma protein measurement (mass/volume) 6.8 g/dL 6.4-8.2 Serum or plasma albumin measurement (mass/volume) 4.0 g/dL 3.2-4.5 Magnesium - 05/03/16 17:40 Magnesium 2.2 mg/dL 1.8-2.4 Serum or plasma troponin i.cardiac measurement (mass/volume) - 05/03/16 17:40 Serum or plasma troponin i.cardiac measurement (mass/volume) < ng/ mL <0.30 Myoglobin, serum - 05/03/16 17:40 Myoglobin, serum 38.8 ng/mL 10.0-92.0 Complete blood count (CBC) with automated white blood cell (WBC) differential - 10/26/16 14:02 Blood leukocytes automated count (number/volume) 8.4 10*3/uL 4.3-11.0 Blood erythrocytes automated count (number/volume) 5.34 10*6/uL 4.35-5.85 Venous blood hemoglobin measurement (mass/volume) 15.9 g/dL 11.5-16.0 Blood hematocrit (volume fraction) 47 % 35-52 Automated erythrocyte mean corpuscular volume 87 [foz_us] 80-99 Automated erythrocyte mean corpuscular hemoglobin (mass per erythrocyte) 30 pg 25-34 Automated erythrocyte mean corpuscular hemoglobin concentration measurement ( mass/volume) 34 g/dL 32-36 Automated erythrocyte distribution width ratio 13.5 % 10.0-14.5 Automated blood platelet count (count/volume) 358 10*3/uL 130-400 Automated blood platelet mean volume measurement 9.6 [foz_us] 7.4-10.4 Automated blood neutrophils/100 leukocytes 54 % 42-75 Automated blood lymphocytes/100 leukocytes 25 % 12-44 Blood monocytes/100 leukocytes 13 % 0-12 Automated blood eosinophils/100 leukocytes 7 % 0-10 Automated blood basophils/100 leukocytes 1 % 0-10 Blood neutrophils automated count (number/volume) 4.5 10*3 1.8-7.8 Blood lymphocytes automated count (number/volume) 2.1 10*3 1.0-4.0 Blood monocytes automated count (number/volume) 1.1 10*3 0.0-1.0 Automated eosinophil count 0.6 10*3/uL 0.0-0.3 Automated blood basophil count (count/volume) 0.1 10*3/uL 0.0-0.1 Comprehensive metabolic panel - 10/26/16 14:02 Serum or plasma sodium measurement (moles/volume) 140 mmol/L 135-145 Serum or plasma potassium measurement (moles/volume) 3.9 mmol/L 3.6-5.0 Serum or plasma chloride measurement (moles/volume) 106 mmol/L 98-107 Carbon dioxide 24 mmol/L 21-32 Serum or plasma anion gap determination (moles/volume) 10 mmol/L 5-14 Serum or plasma urea nitrogen measurement (mass/volume) 11 mg/dL 7-18 Serum or plasma creatinine measurement (mass/volume) 0.83 mg/dL 0.60-1.30 Serum or plasma urea nitrogen/creatinine mass ratio 13 NRG Serum or plasma creatinine measurement with calculation of estimated glomerular filtration rate > NRG Serum or plasma glucose measurement (mass/volume) 121 mg/dL 70-105 Serum or plasma calcium measurement (mass/volume) 9.8 mg/dL 8.5-10.1 Serum or plasma total bilirubin measurement (mass/volume) 0.7 mg/dL 0.1-1.0 Serum or plasma alkaline phosphatase measurement (enzymatic activity/volume) 82 U/L 40-136 Serum or plasma aspartate aminotransferase measurement (enzymatic activity/ volume) 17 U/L 5-34 Serum or plasma alanine aminotransferase measurement (enzymatic activity/volume ) 14 U/L 0-55 Serum or plasma protein measurement (mass/volume) 6.6 g/dL 6.4-8.2 Serum or plasma albumin measurement (mass/volume) 4.0 g/dL 3.2-4.5 Complete urinalysis with reflex to culture - 10/26/16 14:05 Urine color determination YELLOW NRG Urine clarity determination SLIGHTLY CLOUDY NRG Urine pH measurement by test strip 6 5-9 Specific gravity of urine by test strip 1.020 1.016- 1.022 Urine protein assay by test strip, semi-quantitative 1+ NEGATIVE Urine glucose detection by automated test strip NEGATIVE NEGATIVE Erythrocytes detection in urine sediment by light microscopy 4+ NEGATIVE Urine ketones detection by automated test strip NEGATIVE NEGATIVE Urine nitrite detection by test strip POSITIVE NEGATIVE Urine total bilirubin detection by test strip NEGATIVE NEGATIVE Urine urobilinogen measurement by automated test strip (mass/volume) NORMAL NORMAL Urine leukocyte esterase detection by dipstick 3+ NEGATIVE Automated urine sediment erythrocyte count by microscopy (number/high power field) [HPF] NRG Automated urine sediment leukocyte count by microscopy (number/high power field ) [HPF] NRG Bacteria detection in urine sediment by light microscopy LARGE NRG Squamous epithelial cells detection in urine sediment by light microscopy 0-2 NRG Crystals detection in urine sediment by light microscopy NONE NRG Casts detection in urine sediment by light microscopy NONE NRG Mucus detection in urine sediment by light microscopy NEGATIVE NRG Complete urinalysis with reflex to culture YES NRG Bacterial urine culture - 10/26/16 14:05 Bacterial urine culture [id number] NRG COLONY COUNT 10,000/ML - 100,000/ML NRG FTX;REPORTABLE SENSITIVITY REPORTED 10/29/16 11:40 NRG FREE TEXT ENTRY 2 KDHE REPORTED PRESUMPTIVE SHIGELLA NRG FREE TEXT ENTRY 3 DYSENTERIA 11/01 10:45; CONFIRMATORY NRG FREE TEXT REPORTABLE TESTING INDICATED E COLI NR Bacterial susceptibility panel - 10/26/16 14:05 Gentamicin susceptibility test by minimum inhibitory concentration < = NRG Trimethoprim/sulfamethoxazole susceptibility test by minimum inhibitoryconcentration >= NRG Ampicillin susceptibility test by minimum inhibitory concentration > = NRG Tobramycin susceptibility test by minimum inhibitory concentration < = NRG Cefazolin susceptibility test by minimum inhibitory concentration 8 NRG Ceftriaxone susceptibility test by minimum inhibitory concentration <= NRG Ampicillin/sulbactam susceptibility test by minimum inhibitory concentration >= NRG Piperacillin/tazobactam susceptibility test by minimum inhibitory concentration 32 NRG Ciprofloxacin susceptibility test by minimum inhibitory concentration <= NRG Meropenem susceptibility test by minimum inhibitory concentration < = NRG Nitrofurantoin susceptibility test by minimum inhibitory concentration <= NRG Aztreonam susceptibility test by minimum inhibitory concentration < = NRG Extended spectrum beta lactamase (ESBL) producing bacteria susceptibility test by minimum inhibitory concentration - [facility] Bacterial susceptibility panel - 10/26/16 14:05 Gentamicin susceptibility test by minimum inhibitory concentration < = NRG Trimethoprim/sulfamethoxazole susceptibility test by minimum inhibitoryconcentration >= NRG Ampicillin susceptibility test by minimum inhibitory concentration > = NRG Tobramycin susceptibility test by minimum inhibitory concentration < = NRG Cefazolin susceptibility test by minimum inhibitory concentration 8 NRG Ceftriaxone susceptibility test by minimum inhibitory concentration <= NRG Ampicillin/sulbactam susceptibility test by minimum inhibitory concentration >= NRG Piperacillin/tazobactam susceptibility test by minimum inhibitory concentration 32 NRG Ciprofloxacin susceptibility test by minimum inhibitory concentration <= NRG Meropenem susceptibility test by minimum inhibitory concentration < = NRG Nitrofurantoin susceptibility test by minimum inhibitory concentration <= NRG Aztreonam susceptibility test by minimum inhibitory concentration < = NRG Extended spectrum beta lactamase (ESBL) producing bacteria susceptibility test by minimum inhibitory concentration - [facility] Complete blood count (CBC) with automated white blood cell (WBC) differential - 02/21/17 18:30 Blood leukocytes automated count (number/volume) 9.3 10*3/uL 4.3-11.0 Blood erythrocytes automated count (number/volume) 5.33 10*6/uL 4.35-5.85 Venous blood hemoglobin measurement (mass/volume) 15.9 g/dL 11.5-16.0 Blood hematocrit (volume fraction) 47 % 35-52 Automated erythrocyte mean corpuscular volume 88 [foz_us] 80-99 Automated erythrocyte mean corpuscular hemoglobin (mass per erythrocyte) 30 pg 25-34 Automated erythrocyte mean corpuscular hemoglobin concentration measurement ( mass/volume) 34 g/dL 32-36 Automated erythrocyte distribution width ratio 14.0 % 10.0-14.5 Automated blood platelet count (count/volume) 415 10*3/uL 130-400 Automated blood platelet mean volume measurement 9.6 [foz_us] 7.4-10.4 Automated blood neutrophils/100 leukocytes 87 % 42-75 Automated blood lymphocytes/100 leukocytes 12 % 12-44 Blood monocytes/100 leukocytes 1 % 0-12 Automated blood eosinophils/100 leukocytes 0 % 0-10 Automated blood basophils/100 leukocytes 0 % 0-10 Blood neutrophils automated count (number/volume) 8.1 10*3 1.8-7.8 Blood lymphocytes automated count (number/volume) 1.1 10*3 1.0-4.0 Blood monocytes automated count (number/volume) 0.1 10*3 0.0-1.0 Automated eosinophil count 0.0 10*3/uL 0.0-0.3 Automated blood basophil count (count/volume) 0.0 10*3/uL 0.0-0.1 PT panel in platelet poor plasma by coagulation assay - 02/21/17 18:30 Prothrombin time (PT) in platelet poor plasma by coagulation assay 12.4 s 12.2-14.7 INR in platelet poor plasma or blood by coagulation assay 1.0 0.8-1.4 Activated partial thromboplastin time (aPTT) in platelet poor plasma bycoagulation assay - 02/21/17 18:30 Activated partial thromboplastin time (aPTT) in platelet poor plasma bycoagulation assay 29 s 24-35 Blood manual differential performed detection - 02/21/17 18:30 Blood monocytes/100 leukocytes 1 % [facility] Manual blood segmented neutrophils/100 leukocytes 86 % NR Manual blood lymphocytes/100 leukocytes 4 % NR Manual blood basophils/100 leukocytes 1 % NR Blood lymphocytes variant/100 leukocytes 8 % [facility] Blood erythrocyte morphology finding identification NORMAL [facility] Comprehensive metabolic panel - 02/21/17 18:30 Serum or plasma sodium measurement (moles/volume) 143 mmol/L 135-145 Serum or plasma potassium measurement (moles/volume) 4.1 mmol/L 3.6-5.0 Serum or plasma chloride measurement (moles/volume) 106 mmol/L 98-107 Carbon dioxide 21 mmol/L 21-32 Serum or plasma anion gap determination (moles/volume) 16 mmol/L 5-14 Serum or plasma urea nitrogen measurement (mass/volume) 14 mg/dL 7-18 Serum or plasma creatinine measurement (mass/volume) 1.01 mg/dL 0.60-1.30 Serum or plasma urea nitrogen/creatinine mass ratio 14 NRG Serum or plasma creatinine measurement with calculation of estimated glomerular filtration rate 54 NRG Serum or plasma glucose measurement (mass/volume) 170 mg/dL 70-105 Serum or plasma calcium measurement (mass/volume) 10.2 mg/dL 8.5-10.1 Serum or plasma total bilirubin measurement (mass/volume) 1.0 mg/dL 0.1-1.0 Serum or plasma alkaline phosphatase measurement (enzymatic activity/volume) 72 U/L 40-136 Serum or plasma aspartate aminotransferase measurement (enzymatic activity/ volume) 17 U/L 5-34 Serum or plasma alanine aminotransferase measurement (enzymatic activity/volume ) 20 U/L 0-55 Serum or plasma protein measurement (mass/volume) 7.6 g/dL 6.4-8.2 Serum or plasma albumin measurement (mass/volume) 4.3 g/dL 3.2-4.5 Magnesium - 02/21/17 18:30 Magnesium 2.4 mg/dL 1.8-2.4 Serum or plasma troponin i.cardiac measurement (mass/volume) - 02/21/17 18:30 Serum or plasma troponin i.cardiac measurement (mass/volume) < ng/ mL <0.30 Myoglobin, serum - 02/21/17 18:30 Myoglobin, serum 63.9 ng/mL 10.0-92.0 Complete blood count (CBC) with automated white blood cell (WBC) differential - 08/19/17 08:24 Blood leukocytes automated count (number/volume) 15.4 10*3/uL 4.3-11.0 Blood erythrocytes automated count (number/volume) 5.26 10*6/uL 4.35-5.85 Venous blood hemoglobin measurement (mass/volume) 15.9 g/dL 11.5-16.0 Blood hematocrit (volume fraction) 48 % 35-52 Automated erythrocyte mean corpuscular volume 91 [foz_us] 80-99 Automated erythrocyte mean corpuscular hemoglobin (mass per erythrocyte) 30 pg 25-34 Automated erythrocyte mean corpuscular hemoglobin concentration measurement ( mass/volume) 33 g/dL 32-36 Automated erythrocyte distribution width ratio 13.7 % 10.0-14.5 Automated blood platelet count (count/volume) 359 10*3/uL 130-400 Automated blood platelet mean volume measurement 9.6 [foz_us] 7.4-10.4 Automated blood neutrophils/100 leukocytes 70 % 42-75 Automated blood lymphocytes/100 leukocytes 15 % 12-44 Blood monocytes/100 leukocytes 9 % 0-12 Automated blood eosinophils/100 leukocytes 5 % 0-10 Automated blood basophils/100 leukocytes 0 % 0-10 Blood neutrophils automated count (number/volume) 10.8 10*3 1.8-7.8 Blood lymphocytes automated count (number/volume) 2.4 10*3 1.0-4.0 Blood monocytes automated count (number/volume) 1.4 10*3 0.0-1.0 Automated eosinophil count 0.8 10*3/uL 0.0-0.3 Automated blood basophil count (count/volume) 0.0 10*3/uL 0.0-0.1 Whole blood basic metabolic panel - 08/19/17 08:24 Serum or plasma sodium measurement (moles/volume) 141 mmol/L 135-145 Serum or plasma potassium measurement (moles/volume) 4.3 mmol/L 3.6-5.0 Serum or plasma chloride measurement (moles/volume) 104 mmol/L 98-107 Carbon dioxide 28 mmol/L 21-32 Serum or plasma anion gap determination (moles/volume) 9 mmol/L 5-14 Serum or plasma urea nitrogen measurement (mass/volume) 14 mg/dL 7-18 Serum or plasma creatinine measurement (mass/volume) 0.78 mg/dL 0.60-1.30 Serum or plasma urea nitrogen/creatinine mass ratio 18 NRG Serum or plasma creatinine measurement with calculation of estimated glomerular filtration rate > NRG Serum or plasma glucose measurement (mass/volume) 101 mg/dL 70-105 Serum or plasma calcium measurement (mass/volume) 10.2 mg/dL 8.5-10.1 Serum or plasma C reactive protein measurement (mass/volume) - 08/19/17 08:24 Serum or plasma C reactive protein measurement (mass/volume) 0.43 mg /dL 0.00-0.50 Blood manual differential performed detection - 08/19/17 08:24 Blood monocytes/100 leukocytes 11 % NRG Manual blood segmented neutrophils/100 leukocytes 71 % NRG Blood band neutrophils/100 leukocytes 0 % NRG Manual blood lymphocytes/100 leukocytes 13 % NRG Manual eosinophils/100 leukocytes in nose 5 % NRG Manual blood basophils/100 leukocytes 0 % NRG Blood erythrocyte morphology finding identification NORMAL NR Complete blood count (CBC) with automated white blood cell (WBC) differential - 12/12/17 21:15 Blood leukocytes automated count (number/volume) 9.9 10*3/uL 4.3-11.0 Blood erythrocytes automated count (number/volume) 5.44 10*6/uL 4.35-5.85 Venous blood hemoglobin measurement (mass/volume) 16.4 g/dL 11.5-16.0 Blood hematocrit (volume fraction) 48 % 35-52 Automated erythrocyte mean corpuscular volume 89 [foz_us] 80-99 Automated erythrocyte mean corpuscular hemoglobin (mass per erythrocyte) 30 pg 25-34 Automated erythrocyte mean corpuscular hemoglobin concentration measurement ( mass/volume) 34 g/dL 32-36 Automated erythrocyte distribution width ratio 13.6 % 10.0-14.5 Automated blood platelet count (count/volume) 371 10*3/uL 130-400 Automated blood platelet mean volume measurement 9.5 [foz_us] 7.4-10.4 Automated blood neutrophils/100 leukocytes 52 % 42-75 Automated blood lymphocytes/100 leukocytes 23 % 12-44 Blood monocytes/100 leukocytes 13 % 0-12 Automated blood eosinophils/100 leukocytes 12 % 0-10 Automated blood basophils/100 leukocytes 1 % 0-10 Blood neutrophils automated count (number/volume) 5.1 10*3 1.8-7.8 Blood lymphocytes automated count (number/volume) 2.2 10*3 1.0-4.0 Blood monocytes automated count (number/volume) 1.3 10*3 0.0-1.0 Automated eosinophil count 1.2 10*3/uL 0.0-0.3 Automated blood basophil count (count/volume) 0.1 10*3/uL 0.0-0.1 Comprehensive metabolic panel - 12/12/17 21:15 Serum or plasma sodium measurement (moles/volume) 142 mmol/L 135-145 Serum or plasma potassium measurement (moles/volume) 4.2 mmol/L 3.6-5.0 Serum or plasma chloride measurement (moles/volume) 105 mmol/L 98-107 Carbon dioxide 29 mmol/L 21-32 Serum or plasma anion gap determination (moles/volume) 8 mmol/L 5-14 Serum or plasma urea nitrogen measurement (mass/volume) 9 mg/dL 7-18 Serum or plasma creatinine measurement (mass/volume) 0.77 mg/dL 0.60-1.30 Serum or plasma urea nitrogen/creatinine mass ratio 12 NRG Serum or plasma creatinine measurement with calculation of estimated glomerular filtration rate > NRG Serum or plasma glucose measurement (mass/volume) 93 mg/dL 70-105 Serum or plasma calcium measurement (mass/volume) 10.7 mg/dL 8.5-10.1 Serum or plasma total bilirubin measurement (mass/volume) 1.0 mg/dL 0.1-1.0 Serum or plasma alkaline phosphatase measurement (enzymatic activity/volume) 77 U/L 40-136 Serum or plasma aspartate aminotransferase measurement (enzymatic activity/ volume) 19 U/L 5-34 Serum or plasma alanine aminotransferase measurement (enzymatic activity/volume ) 19 U/L 0-55 Serum or plasma protein measurement (mass/volume) 7.1 g/dL 6.4-8.2 Serum or plasma albumin measurement (mass/volume) 4.3 g/dL 3.2-4.5 Serum or plasma thyrotropin measurement by detection limit <=0.05 miu/l (units/ volume) - 12/12/17 21:15 Serum or plasma thyrotropin measurement by detection limit <=0.05 miu/l (units/ volume) 2.20 u[iU]/mL 0.35-4.94 Complete urinalysis with reflex to culture - 12/12/17 21:53 Urine color determination YELLOW NRG Urine clarity determination CLEAR NRG Urine pH measurement by test strip 6.5 5-9 Specific gravity of urine by test strip 1.010 1.016- 1.022 Urine protein assay by test strip, semi-quantitative NEGATIVE NEGATIVE Urine glucose detection by automated test strip NEGATIVE NEGATIVE Erythrocytes detection in urine sediment by light microscopy 2+ NEGATIVE Urine ketones detection by automated test strip NEGATIVE NEGATIVE Urine nitrite detection by test strip POSITIVE NEGATIVE Urine total bilirubin detection by test strip NEGATIVE NEGATIVE Urine urobilinogen measurement by automated test strip (mass/volume) NORMAL NORMAL Urine leukocyte esterase detection by dipstick 2+ NEGATIVE Automated urine sediment erythrocyte count by microscopy (number/high power field) [HPF] NRG Automated urine sediment leukocyte count by microscopy (number/high power field ) [HPF] NRG Bacteria detection in urine sediment by light microscopy LARGE NRG Squamous epithelial cells detection in urine sediment by light microscopy 2-5 NRG Crystals detection in urine sediment by light microscopy NONE NRG Casts detection in urine sediment by light microscopy NONE NRG Mucus detection in urine sediment by light microscopy NEGATIVE NRG Complete urinalysis with reflex to culture YES NRG Bacterial urine culture - 12/12/17 21:53 Bacterial urine culture [id number] NRG COLONY COUNT >100,000/ML NRG FTX;REPORTABLE SENSITIVITY REPORTED 12/16 13:30 NRG FREE TEXT ENTRY 2 (BOTH COLONY TYPES ARE E COLI) NRG Bacterial susceptibility panel - 12/12/17 21:53 Gentamicin susceptibility test by minimum inhibitory concentration < = NRG Trimethoprim/sulfamethoxazole susceptibility test by minimum inhibitoryconcentration R NRG Ampicillin susceptibility test by minimum inhibitory concentration > = NRG Tobramycin susceptibility test by minimum inhibitory concentration < = NRG Cefazolin susceptibility test by minimum inhibitory concentration 16 NRG Ceftriaxone susceptibility test by minimum inhibitory concentration <= NRG Ampicillin/sulbactam susceptibility test by minimum inhibitory concentration R NRG Piperacillin/tazobactam susceptibility test by minimum inhibitory concentration I NRG Ciprofloxacin susceptibility test by minimum inhibitory concentration <= NRG Meropenem susceptibility test by minimum inhibitory concentration < = NRG Nitrofurantoin susceptibility test by minimum inhibitory concentration <= NRG Aztreonam susceptibility test by minimum inhibitory concentration < = NRG Extended spectrum beta lactamase (ESBL) producing bacteria susceptibility test by minimum inhibitory concentration - NRG Complete blood count (CBC) with automated white blood cell (WBC) differential - 04/13/18 18:06 Blood leukocytes automated count (number/volume) 12.5 10*3/uL 4.3-11.0 Blood erythrocytes automated count (number/volume) 5.45 10*6/uL 4.35-5.85 Venous blood hemoglobin measurement (mass/volume) 16.8 g/dL 11.5-16.0 Blood hematocrit (volume fraction) 48 % 35-52 Automated erythrocyte mean corpuscular volume 88 [foz_us] 80-99 Automated erythrocyte mean corpuscular hemoglobin (mass per erythrocyte) 31 pg 25-34 Automated erythrocyte mean corpuscular hemoglobin concentration measurement ( mass/volume) 35 g/dL 32-36 Automated erythrocyte distribution width ratio 14.8 % 10.0-14.5 Automated blood platelet count (count/volume) 433 10*3/uL 130-400 Automated blood platelet mean volume measurement 10.4 [foz_us] 7.4-10.4 Automated blood neutrophils/100 leukocytes 80 % 42-75 Automated blood lymphocytes/100 leukocytes 14 % 12-44 Blood monocytes/100 leukocytes 5 % 0-12 Automated blood eosinophils/100 leukocytes 0 % 0-10 Automated blood basophils/100 leukocytes 0 % 0-10 Blood neutrophils automated count (number/volume) 10.0 10*3 1.8-7.8 Blood lymphocytes automated count (number/volume) 1.8 10*3 1.0-4.0 Blood monocytes automated count (number/volume) 0.6 10*3 0.0-1.0 Automated eosinophil count 0.0 10*3/uL 0.0-0.3 Automated blood basophil count (count/volume) 0.0 10*3/uL 0.0-0.1 PT panel in platelet poor plasma by coagulation assay - 04/13/18 18:06 Prothrombin time (PT) in platelet poor plasma by coagulation assay 12.7 s 12.2-14.7 INR in platelet poor plasma or blood by coagulation assay 1.0 0.8-1.4 Activated partial thromboplastin time (aPTT) in platelet poor plasma bycoagulation assay - 04/13/18 18:06 Activated partial thromboplastin time (aPTT) in platelet poor plasma bycoagulation assay 29 s 24-35 Comprehensive metabolic panel - 04/13/18 18:06 Serum or plasma sodium measurement (moles/volume) 140 mmol/L 135-145 Serum or plasma potassium measurement (moles/volume) 5.8 mmol/L 3.6-5.0 Serum or plasma chloride measurement (moles/volume) 109 mmol/L 98-107 Carbon dioxide 20 mmol/L 21-32 Serum or plasma anion gap determination (moles/volume) 11 mmol/L 5-14 Serum or plasma urea nitrogen measurement (mass/volume) 19 mg/dL 7-18 Serum or plasma creatinine measurement (mass/volume) 0.84 mg/dL 0.60-1.30 Serum or plasma urea nitrogen/creatinine mass ratio 23 NRG Serum or plasma creatinine measurement with calculation of estimated glomerular filtration rate > NRG Serum or plasma glucose measurement (mass/volume) 192 mg/dL 70-105 Serum or plasma calcium measurement (mass/volume) 9.8 mg/dL 8.5-10.1 Serum or plasma total bilirubin measurement (mass/volume) 0.9 mg/dL 0.1-1.0 Serum or plasma alkaline phosphatase measurement (enzymatic activity/volume) 64 U/L 40-136 Serum or plasma aspartate aminotransferase measurement (enzymatic activity/ volume) 42 U/L 5-34 Serum or plasma alanine aminotransferase measurement (enzymatic activity/volume ) 24 U/L 0-55 Serum or plasma protein measurement (mass/volume) 8.2 g/dL 6.4-8.2 Serum or plasma albumin measurement (mass/volume) 4.4 g/dL 3.2-4.5 Magnesium - 04/13/18 18:06 Magnesium 3.6 mg/dL 1.8-2.4 Serum or plasma troponin i.cardiac measurement (mass/volume) - 04/13/18 18:06 Serum or plasma troponin i.cardiac measurement (mass/volume) < ng/ mL <0.30 Myoglobin, serum - 04/13/18 18:06 Myoglobin, serum 41.6 ng/mL 10.0-92.0 Serum or plasma thyrotropin measurement by detection limit <=0.05 miu/l (units/ volume) - 04/13/18 18:06 Serum or plasma thyrotropin measurement by detection limit <=0.05 miu/l (units/ volume) 0.75 u[iU]/mL 0.35-4.94 Complete urinalysis with reflex to culture - 04/13/18 20:03 Urine color determination YELLOW NRG Urine clarity determination CLEAR NRG Urine pH measurement by test strip 7 5-9 Specific gravity of urine by test strip 1.010 1.016- 1.022 Urine protein assay by test strip, semi-quantitative 2+ NEGATIVE Urine glucose detection by automated test strip NEGATIVE NEGATIVE Erythrocytes detection in urine sediment by light microscopy 3+ NEGATIVE Urine ketones detection by automated test strip NEGATIVE NEGATIVE Urine nitrite detection by test strip NEGATIVE NEGATIVE Urine total bilirubin detection by test strip NEGATIVE NEGATIVE Urine urobilinogen measurement by automated test strip (mass/volume) NORMAL NORMAL Urine leukocyte esterase detection by dipstick 2+ NEGATIVE Automated urine sediment erythrocyte count by microscopy (number/high power field) [HPF] NRG Automated urine sediment leukocyte count by microscopy (number/high power field ) [HPF] NRG Bacteria detection in urine sediment by light microscopy LARGE NRG Crystals detection in urine sediment by light microscopy NONE NRG Casts detection in urine sediment by light microscopy NONE NRG Mucus detection in urine sediment by light microscopy NEGATIVE NRG Complete urinalysis with reflex to culture YES NRG Bacterial urine culture - 04/13/18 20:03 Bacterial urine culture [id number] NRG COLONY COUNT >100,000/ML NRG FTX;REPORTABLE OF VARYING MORPHOLOGIES NRG FREE TEXT ENTRY 2 RML SENT SENSITIVITY 04/17 13:05 NRG RML Sensitivity Panel - 04/13/18 20:03 Gentamicin susceptibility test by minimum inhibitory concentration < = NRG Trimethoprim/sulfamethoxazole susceptibility test by minimum inhibitoryconcentration = NRG Levofloxacin susceptibility test by minimum inhibitory concentration <= NRG Ampicillin susceptibility test by minimum inhibitory concentration > NRG Cefazolin susceptibility test by minimum inhibitory concentration 4 NRG Ceftriaxone susceptibility test by minimum inhibitory concentration <= NRG Ciprofloxacin susceptibility test by minimum inhibitory concentration <= NRG Meropenem susceptibility test by minimum inhibitory concentration < = NRG Nitrofurantoin susceptibility test by minimum inhibitory concentration <= NRG Amoxicillin and clavulanate potassium susc ELSA = NRG Encounters ACCT No. Visit Date/Time Discharge Status Pt. Type Provider Facility Loc./Unit Complaint [id number] 04/13/2018 18:03:00 04/13/2018 21:28:00 DIS Emergency MONTSERRAT JESSICA MD [facility] ER SVT [id number] 03/26/2018 12:00:00 03/26/2018 23:59:59 CLS Preadmit Skyler SHAW MD [facility] CARD I10 HTN [id number] 01/19/2018 08:43:00 03/25/2018 00:01:00 DIS Outpatient Skyler SHAW MD [facility] CARD I10 HTN [id number] 03/24/2018 08:00:00 03/24/2018 23:59:59 CLS Preadmit Skyler SHAW MD [facility] CARD HTN,PSVT [id number] 12/23/2017 08:01:00 03/23/2018 00:01:00 DIS Outpatient Skylre SHAW MD [facility] CARD HTN,PSVT [id number] 02/05/2018 10:09:00 02/05/2018 23:59:59 CLS Outpatient ESTER ALLRED MD [facility] RAD HYPERPARATHYROIDISM [id number] 01/26/2018 10:00:00 01/26/2018 23:59:59 CLS Preadmit VALERIA FLOWERS, M MARISA [facility] RAD I10 HTN [id number] 12/22/2017 08:30:00 12/22/2017 23:59:59 CLS Preadmit VALERIA FLOWERS, M MARISA [facility] CARD I10 HTN [id number] 12/17/2017 15:49:00 12/17/2017 23:59:59 CLS Preadmit VALERIA FLOWERS, M MARISA [facility] CARD I10 HTN [id number] 12/12/2017 23:30:00 12/13/2017 13:00:00 DIS Inpatient NOEL FLOWERS, ARSLAN Holland [facility] 4TH ATRIAL TACHYCARDIA, HYPERTENSIVE URGENCY,UTI, [id number] 08/19/2017 07:35:00 08/19/2017 09:26:00 DIS Emergency MONTSERRAT JESSICA MD [facility] ER SOA [id number] 08/03/2017 08:36:00 08/03/2017 11:41:00 DIS Emergency RYAN PARDO [employer] SPECIALIST [facility] ER HIGH BP, SOB [id number] 07/09/2017 09:45:00 07/09/2017 23:59:59 CLS Preadmit AMANDO PORTER [employer] SPECIALIST [facility] RT ASTHMA J45.909 [id number] 02/21/2017 18:23:00 02/21/2017 20:08:00 DIS Emergency RYAN PARDO [employer] SPECIALIST [facility] ER CHEST PAIN [id number] 10/26/2016 12:59:00 10/26/2016 15:55:00 DIS Emergency ESTER HENSLEY MD [facility] ER SOB/BODY ACHES [id number] 05/03/2016 17:37:00 05/03/2016 19:27:00 DIS Emergency INDIRA HALEY MD [facility] ER CP [id number] 05/01/2016 07:04:00 05/01/2016 23:59:59 CLS Outpatient YAHIR THOMAS MD [facility] CARD ABNORMAL EKG,HTN,SVT [id number] 01/19/2016 14:19:00 01/19/2016 23:59:59 CLS Outpatient ESTER ALLRED MD [facility] RAD UTERINE ENLARGEMENT [id number] 01/15/2016 08:51:00 01/15/2016 23:59:59 CLS Outpatient ESTER ALLRED MD [facility] LAB HEMATURIA [id number] 01/15/2016 08:22:00 01/15/2016 23:59:59 CLS Outpatient ESTER ALLRED MD [facility] RAD GROSS HEMATURIA,FATIGUE [id number] 12/29/2015 08:57:00 12/29/2015 23:59:59 CLS Outpatient ESTER ALLRED MD [facility] LAB UTI [id number] 12/20/2015 10:10:00 12/20/2015 23:59:59 CLS Outpatient ESTER ALLRED MD [facility] LAB DYSURIA, INCREASED URINE FREQUENCY [id number] 12/11/2015 01:57:00 12/11/2015 04:45:00 DIS Emergency AZRA MCWILLIAMS DO [facility] ER TROUBLE BREATHING [id number] 08/04/2015 09:35:00 08/04/2015 12:53:00 DIS Emergency RYAN PARDO [employer] SPECIALIST [facility] ER SOA [id number] 07/18/2015 11:30:00 07/18/2015 13:51:00 DIS Emergency RYAN PARDO [employer] SPECIALIST [facility] ER FALL/RIGHT FOOT INJURY [id number] 05/24/2015 18:59:00 05/24/2015 21:56:00 DIS Emergency ASHTYN ZHANG DO [facility] ER SOA [id number] 12/22/2014 11:30:00 12/22/2014 23:59:59 CLS Preadmit ESTER ALLRED MD [facility] RAD MULTIPLE RISK FACTOR OSTEOPOROSIS [id number] 10/19/2014 15:09:00 10/24/2014 10:30:00 DIS Inpatient ESTER ALLRED MD [facility] 4TH STATUS ASTHMA [id number] 10/21/2013 08:01:00 10/21/2013 09:58:00 DIS Emergency MALIK MAGALLANES MD [facility] ER COUGH/CONGESTION SOA [id number] 10/12/2013 08:00:00 10/12/2013 09:26:00 DIS Emergency INDIRA HALEY MD [facility] ER COUGH/CONGESTION/SOA [id number] 08/13/2013 08:38:00 08/13/2013 11:20:00 DIS Emergency MALIK MAGALLANES MD [facility] ER VOMITING/NAUSEATED [id number] 07/04/2013 08:02:00 07/05/2013 13:00:00 DIS Inpatient ESTER ALLRED MD [facility] 4TH DIARRHEA, DEHYDRATION, UTI [id number] 06/25/2013 12:16:00 06/25/2013 14:18:00 DIS Emergency RYAN PARDO APRN [facility] ER RIGHT SHOULDER PAIN [id number] 05/19/2013 19:59:00 05/21/2013 15:55:00 DIS Inpatient ESTER ALLRED MD [facility] 4TH ASTHMA EXACERBATION [id number] 05/02/2013 19:48:00 05/02/2013 22:01:00 DIS Emergency SOLOMON SHAVER [facility] ER FELL ON R SIDE OF BODY [id number] 10/17/2014 01:56:00 Document Registration [id number] 10/17/2014 01:56:00 Document Registration [id number] 10/17/2014 01:56:00 Document Registration [id number] 10/16/2012 15:56:00 Document Registration [id number] 10/10/2012 07:35:00 Document Registration [id number] 06/20/2012 20:54:00 Document Registration [id number] 06/06/2012 14:51:00 Document Registration [id number] 03/08/2012 11:56:00 Document Registration [id number] 01/28/2011 07:51:00 Document Registration [id number] 12/12/2010 16:02:00 Document Registration [id number] 11/02/2010 12:59:00 Document Registration [id number] 09/25/2010 23:39:00 Document Registration [id number] 08/26/2010 08:34:00 Document Registration [id number] 05/04/2010 15:36:00 Document Registration [id number] 01/22/2010 15:55:00 Document Registration [id number] 07/23/2013 10:33:00 07/23/2013 23:59:59 [facility] GE RAINEY DO [facility] 05/24/2015 18:59:20 ACT Document Registration
[2018-06-14] MEDS ORDERED: DILTIAZEM 25 MG/5 ML INJ (CARDIZEM) VIAL ONE (17:14)
[2018-06-14] MEDS ORDERED: RT-ALBUTEROL SULF 2.5 MG/3 ML PRE-MIX VIAL ONE (17:16)
[2018-06-14] MEDS ORDERED: RT-LEVALBUTEROL (XOPENEX) 1.25 MG/3 ML NEB NON-FORMULARY ONE (17:20)
[2018-06-14 17:22] VITALS: BP 159/87
[2018-06-14 17:26] LABS: BASOPHILS % (AUTO) 0 % (0-10); EOSINOPHILS % (AUTO) 0 % (0-10); HEMATOCRIT 49 % (35-52); HEMOGLOBIN 16.5 G/DL (11.5-16.0); LYMPHOCYTES # (AUTO) 1.3 X 10^3 (1.0-4.0); LYMPHOCYTES % (AUTO) 10 % (12-44); MEAN CORPUSCULAR HEMOGLOBIN 30 PG (25-34); MEAN CORPUSCULAR HGB CONC 34 G/DL (32-36); MEAN CORPUSCULAR VOLUME 90 FL (80-99); MEAN PLATELET VOLUME 9.8 FL (7.4-10.4); MONOCYTES # (AUTO) 0.4 X 10^3 (0.0-1.0); MONOCYTES % (AUTO) 3 % (0-12); NEUTROPHILS # (AUTO) 10.9 X 10^3 (1.8-7.8); NEUTROPHILS % (AUTO) 86 % (42-75); PLATELET COUNT 378 10^3/uL (130-400); RED BLOOD COUNT 5.42 10^6/uL (4.35-5.85); RED CELL DISTRIBUTION WIDTH 14.5 % (10.0-14.5); WHITE BLOOD COUNT 12.6 10^3/uL (4.3-11.0)
--- NOTE | 2018-06-14 17:26 | ED Cardiac General ---
History of Present Illness General Stated Complaint: SVT Source: patient Exam Limitations: no limitations History of Present Illness Date Seen by Provider: Jun 14, 2018 Time Seen by Provider: 17:21 Initial Comments To ER per private vehicle with reports of shortness of breath, chest pressure and sensation of palpitations. She has a history of SVT and states that she believes that's what this is. This began about 1.5 hours prior to arrival. She took 2 of her metoprolol 50 mg tablets at that time without improvement. She does have asthma and is wheezing, she's been using her Xopenex inhaler. She states that recently there's been some concern of possible atrial fibrillation and she wore a 30 day cardiac rn with the final determination that she did not have A. fib. Timing/Duration: 1-3 hours Severity: moderate Location: central [facility]TG [facility] ALARM SERVICE TECHNICIAN: No ASA po ALARM SERVICE TECHNICIAN: No Associated Systoms: Chest Pain (pressure); No Cough Allergies and Home Medications Allergies Coded Allergies: codeine (Verified Allergy, Unknown, 03/23/08) gatifloxacin (Verified Allergy, Unknown, 03/23/08) nitrofurantoin (Verified Allergy, Unknown, 03/23/08) Home Medications Albuterol Sulfate 8 Gm Hfa.aer.ad, 2 PUFF IH QID PRN for SHORTNESS OF BREATH, ( Reported) Cefdinir 300 Mg Capsule, 300 MG PO BID Prescribed by: ARSLAN COHEN on 12/13/17917 Cefdinir 300 Mg Capsule, 300 MG PO BID Prescribed by: MONTSERRAT SANTOS on 04/13/182114 Hydrocodone Bit/Acetaminophen 1 Each Tablet, 1 TAB PO Q6H PRN for PAIN, ( Reported) Ibuprofen 200 Mg Tablet, 600 MG PO BID PRN for PAIN, (Reported) Ipratropium Jennings 0.2 Mg/1 Ml Solution, 0.5 MG IH Q6H PRN for SHORTNESS OF BREATH May mix with Xopenex Prescribed by: MONTSERRAT SANTOS on 08/19/17 09 Lactobacillus Combo No.11 1 Each Cap.sprink, 1 EACH PO BID Prescribed by: ARSLAN COHEN on 12/13/17917 Levalbuterol Hcl 1.25 Mg/0.5 Ml Vial.neb, 1.25 MG IH Q4H PRN for SHORTNESS OF BREATH, (Reported) Lorazepam 1 Mg Tab, 1 MG PO TID PRN for ANXIETY, (Reported) Metoprolol Tartrate 50 Mg Tablet, 50 MG PO TID, (Reported) Patient Home Medication List Home Medication List Reviewed: Yes Review of Systems Review of Systems Constitutional: see HPI; No chills Respiratory: See HPI; Denies Cough; Shortness of Air, Wheezing Cardiovascular: See HPI, Chest Pain Gastrointestinal: See HPI Genitourinary: No Symptoms Reported Musculoskeletal: no symptoms reported Skin: no symptoms reported Psychiatric/Neurological: No Symptoms Reported Endocrine: No Symptoms Reported Past Odtifox-Onkgam-Amrxyv Hx Patient Social History 2nd Hand Smoke Exposure: Yes Recent Foreign Travel: No Contact w/Someone Who Travel: No Recent Hopitalizations: No Seasonal Allergies Seasonal Allergies: Yes Past Medical History Surgeries: Yes Appendectomy Respiratory: Yes Asthma, COPD Currently Using CPAP: No Currently Using BIPAP: No Cardiac: Yes (SVT) 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, Irregular Heartbeat Neurological: No Reproductive Disorders: No Female Reproductive Disorders: Denies APPEALS REFEREE History: Menopausal Sexually Transmitted Disease: No Genitourinary: No Gastrointestinal: Yes Gastroesophageal Reflux Musculoskeletal: Yes (RIGHT HUMERUS FRACTURE, R FOOT) Arthritis, Fractures Endocrine: No HEENT: No Cancer: No Psychosocial: Yes Anxiety, Depression Integumentary: No Blood Disorders: No Family Medical History Dementia 19 MOTHER, , Age:88, Onset:60 years & older FH: CAD (coronary artery disease) 19 FATHER, , Age:64, Onset:60 years & older FH: CHF (congestive heart failure) 19 MOTHER, , Age:88, Onset:60 years & older Myocardial infarction 19 MOTHER, , Age:88, Onset:50's - 60 No Family History of: AIDS Abdominal aortic aneurysm Garfield's disease Alcoholism Alzheimer's disease Aphasia Arthritis Asthma Cancer of mouth Cardiovascular disease Cataracts Colon cancer Completed stroke Congenital disease Congenital heart disease Coronary thrombosis Cystic fibrosis Deafness or hearing loss Diabetes mellitus Drug abuse Dysphasia Fibrocystic disease of breast Gastroenteritis Glaucoma Headache disorder Hypercholesterolemia 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 Infertility Kidney disease Neoplasm Not obtainable due to adoption Osteoporosis Parkinson's disease Prostate cancer Psychosocial problem Respiratory disorder Seizure disorder Severe allergy Thyroid disease Tuberculosis Visual disorder Heart Disease, Diabetes, 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 Physical Exam Vital Signs Vital Signs - First Documented 06/14/18 06/14/18 17:04 17:30 Temp 98.0 Pulse 144 Resp 18 B/P (MAP) 198/131 (153) Pulse Ox 92 O2 Delivery Room Air O2 Flow Rate 3.00 Capillary Refill : Height, Weight, BMI Height: 5'3.00" Weight: 140lbs. 0.0oz. 63.415285ii; 24.9 BMI Method:Stated General Appearance: No Apparent Distress, WD/WN, Other (no acute distress, speaks in full sentences, mentating normally.) HEENT: PERRL/EOMI, TMs Normal Respiratory: Normal Breath Sounds, No Accessory Muscle Use, No Respiratory Distress Cardiovascular: Tachycardia Gastrointestinal: Non Tender, Soft Extremity: Normal Capillary Refill, Normal Inspection Neurologic/Psychiatric: Alert, Oriented x3 Skin: Normal Color, Warm/Dry Progress/Results/Core Measures Results/Orders Lab Results Laboratory Tests Test 06/14/18 17:12 Range/Units White Blood Count 12.6 H 4.3-11.0 10^3/uL Red Blood Count 5.42 4.35-5.85 10^6/uL Hemoglobin 16.5 H 11.5-16.0 G/DL Hematocrit 49 35-52 % Mean Corpuscular Volume 90 80-99 FL Mean Corpuscular Hemoglobin 30 25-34 PG Mean Corpuscular Hemoglobin Concent 34 32-36 G/DL Red Cell Distribution Width 14.5 10.0-14.5 % Platelet Count 378 130-400 10^3/uL Mean Platelet Volume 9.8 7.4-10.4 FL Neutrophils (%) (Auto) 86 H 42-75 % Lymphocytes (%) (Auto) 10 L 12-44 % Monocytes (%) (Auto) 3 0-12 % Eosinophils (%) (Auto) 0 0-10 % Basophils (%) (Auto) 0 0-10 % Neutrophils # (Auto) 10.9 H 1.8-7.8 X 10^3 Lymphocytes # (Auto) 1.3 1.0-4.0 X 10^3 Monocytes # (Auto) 0.4 0.0-1.0 X 10^3 Eosinophils # (Auto) 0.0 0.0-0.3 10^3/uL Basophils # (Auto) 0.0 0.0-0.1 10^3/uL Neutrophils % (Manual) 78 % Lymphocytes % (Manual) 9 % Monocytes % (Manual) 5 % Eosinophils % (Manual) 0 % Basophils % (Manual) 0 % Band Neutrophils 2 % Atypical Lymphocytes % Reactive Lymphocytes 6 % Smudge Cells SLIGHT Clumped Platelets SLIGHT Blood Morphology Comment NORMAL Prothrombin Time 12.8 12.2-14.7 SEC INR Comment 1.0 0.8-1.4 Activated Partial Thromboplast Time 30 24-35 SEC Sodium Level 141 135-145 MMOL/L Potassium Level 4.2 3.6-5.0 MMOL/L Chloride Level 106 98-107 MMOL/L Carbon Dioxide Level 24 21-32 MMOL/L Anion Gap 11 5-14 MMOL/L Blood Urea Nitrogen 14 7-18 MG/DL Creatinine 0.90 0.60-1.30 MG/DL Estimat Glomerular Filtration Rate > 60 BUN/Creatinine Ratio 16 Glucose Level 149 H 70-105 MG/DL Calcium Level 10.2 H 8.5-10.1 MG/DL Corrected Calcium 10.0 8.5-10.1 MG/DL Magnesium Level 2.4 1.8-2.4 MG/DL Total Bilirubin 0.9 0.1-1.0 MG/DL Aspartate Amino Transf (AST/SGOT) 17 5-34 U/L Alanine Aminotransferase (ALT/SGPT) 22 0-55 U/L Alkaline Phosphatase 58 40-136 U/L Myoglobin 83.3 10.0-92.0 NG/ML Troponin I < 0.30 <0.30 NG/ML Total Protein 7.0 6.4-8.2 GM/DL Albumin 4.3 3.2-4.5 GM/DL My Orders Orders - RYAN PARDO APRN Ekg Tracing (06/14/18 17:05) Continuous Ekg Monitoring (06/14/18 17:05) Adenosine Injection (Adenocard Injection (06/14/18 17:07) Adenosine Injection (Adenocard Injection (06/14/18 17:12) Diltiazem Injection (Cardizem Injection) (06/14/18 17:14) Cbc With Automated Diff (06/14/18 17:18) Magnesium (06/14/18 17:18) Chest 1 View, Ap/Pa Only (06/14/18 17:18) Ekg Tracing (06/14/18 17:18) Cardiac Profile 1 (06/14/18 17:18) Comprehensive Metabolic Panel (06/14/18 17:18) Myoglobin Serum (06/14/18 17:18) Protime With Inr (06/14/18 17:18) Partial Thromboplastin Time (06/14/18 17:18) O2 (06/14/18 17:18) Monitor-Rhythm Ecg Trace Only (06/14/18 17:18) Lipid Panel (06/15/18 06:00) Aspirin Chewable Tablet (Baby Aspirin Ch (06/14/18 17:30) Saline Lock/Iv-Start (06/14/18 17:18) Adenosine Injection (Adenocard Injection (06/14/18 17:30) Levalbuterol (Non-Formulary) (Xopenex (N (06/14/18 22:00) Diltiazem Injection (Cardizem Injection) (06/14/18 17:30) Ns (Ivpb) (Sodium C... W/Diltiazem Iv Fo (06/14/18 17:30) Ns Iv 1000 Ml (Sodium Chloride 0.9%) (06/14/18 17:30) Methylprednisolone Sod Succ (Solu-Medrol (06/14/18 17:30) Albuterol Pre-Mix Nebs (Rt) (Proventil (06/14/18 17:16) Levalbuterol (Non-Formulary) (Xopenex (N (06/14/18 17:20) Manual Differential (06/14/18 17:12) Ekg Tracing (06/14/18 17:48) Medications Given in ED Current Medications Medications Dose Ordered Sig/Dusty Route Start Time Stop Time Status Last Admin Dose Admin Adenosine 12 mg ONCE ONCE IV 06/14/18 17:30 06/14/18 17:31 DC 06/14/18 17:12 12 MG Aspirin 324 mg ONCE ONCE PO 06/14/18 17:30 06/14/18 17:31 DC 06/14/18 17:55 324 MG Diltiazem HCl 10 mg ONCE ONCE IVP 06/14/18 17:30 06/14/18 17:31 DC 06/14/18 17:12 10 MG Levalbuterol HCl 1.25 mg STK-MED ONCE .ROUTE 06/14/18 17:20 06/14/18 17:24 DC 06/14/18 17:30 1.25 MG Methylprednisolone Sodium Succinate 125 mg ONCE ONCE IVP 06/14/18 17:30 06/14/18 17:31 DC 06/14/18 17:55 125 MG Vital Signs/I&O 06/14/18 06/14/18 17:04 17:30 Temp 98.0 Pulse 144 Resp 18 B/P (MAP) 198/131 (153) Pulse Ox 92 94 O2 Delivery Room Air Nasal Cannula O2 Flow Rate 3.00 Diagnostic Imaging Diagonstic Imaging: Xray Plain Films/CT/US/NM/MRI: chest Comments NAME: GE [facility] REC#: [id number] PT STATUS: REG ER : 1945 PHYSICIAN: RYAN PARDO APRN ADMIT DATE: 06/14/18/ER Draft Date of Exam:06/14/18 CHEST 1 VIEW, AP/PA ONLY INDICATION: Shortness of air. TIME OF EXAM: 5:34 p.m. EXAMINATION: Single view of the chest was obtained. COMPARISON: Correlation is made with prior study of 04/13/2018. FINDINGS: The heart size is normal. The lungs appear to be clear, apart from minimal scarring or atelectasis in the left base. The pulmonary vascularity is normal. No effusion or pneumothorax is seen. IMPRESSION: Minimal left basilar scarring or atelectasis. The study is otherwise unremarkable. Dictated on workstation # [id number] Dict: 06/14/181745 Trans: 06/14/18 174 [facility] [id number] Interpreted by: SAMARA AGUILAR MD Electronically signed by: Departure Communication (Admissions) 8739-upon arrival she was narrow complex tachycardia which was regular with a rate of 147. She is tachycardic with a blood pressure of 190/130. She was given 12 mg of adenosine with brief and transient reduction in rate. After about 15 seconds her rate increased again to 147. She was then given a 10 mg bolus of Cardizem as she tolerated the Adenocard very poorly states she did not like that feeling all. About 2 minutes after the administration of Cardizem she converted to normal sinus rhythm rate of 75 blood pressure 159/87 1807-feeling much better at this time, less short of breath after the Xopenex treatment, no chest pressure, heart rate remains normal sinus rhythm 74 without ectopy normal intervals, blood pressure 135/83, respiratory rate 16, Impression Primary Impression: Bronchospasm Additional Impression: Narrow complex tachycardia Disposition: 01 HOME, SELF-CARE Condition: Stable Departure-Patient Inst. Decision time for Depature: 18:08 Referrals: ESTER ALLRED MD (PCP/Family) Primary Care Physician Patient Instructions: Tachycardia Add. Discharge Instructions: 1. Return to ER for any recurrent symptoms 2. Follow-up doctor next week 3. Copy Copies To 1: ESTER ALLRED MD, PETER J APRN Jun 14, 2018 17:25
[2018-06-14] MEDS ORDERED: NS IV 1000 ML 1,000 ML IV SCH (17:30)
[2018-06-14] MEDS ORDERED: ASPIRIN 81 MG CHEW (CHILDREN'S ASA) PO ONE (17:30)
[2018-06-14] MEDS ORDERED: DILTIAZEM IV FOR DRIP 125 MG in NS (IVPB) 100 ML IV SCH (17:30)
[2018-06-14] MEDS ORDERED: DILTIAZEM 25 MG/5 ML INJ (CARDIZEM) VIAL IVP ONE (17:30)
[2018-06-14] MEDS ORDERED: methylPREDNISolone 125 MG (Solu-MEDROL) VIAL IVP ONE (17:30)
[2018-06-14 17:40] LABS: ALANINE AMINOTRANSFERASE 22 U/L (0-55); ALBUMIN 4.3 GM/DL (3.2-4.5); ALKALINE PHOSPHATASE 58 U/L (40-136); BILIRUBIN,TOTAL 0.9 MG/DL (0.1-1.0); BUN/CREATININE RATIO 16; CALCIUM 10.2 MG/DL (8.5-10.1); CARBON DIOXIDE 24 MMOL/L (21-32); CHLORIDE 106 MMOL/L (98-107); GFR ESTIMATED > 60; GLUCOSE 149 MG/DL (70-105); MAGNESIUM 2.4 MG/DL (1.8-2.4); POTASSIUM 4.2 MMOL/L (3.6-5.0); SODIUM 141 MMOL/L (135-145)
[2018-06-14 17:47] LABS: MYOGLOBIN SERUM 83.3 NG/ML (10.0-92.0)
[2018-06-14 17:48] LABS: BAND NEUTROPHILS 2 %; BASOPHILS % (MANUAL) 0 %; EOSINOPHILS % (MANUAL) 0 %; LYMPHOCYTES % (MANUAL) 9 %; MONOCYTES % (MANUAL) 5 %; NEUTROPHILS % (MANUAL) 78 %; REACTIVE LYMPHOCYTES 6 %
--- NOTE | 2018-06-14 17:48 | Diagnostic Imaging Report ---
INDICATION: Shortness of air. TIME OF EXAM: 5:34 p.m. EXAMINATION: Single view of the chest was obtained. COMPARISON: Correlation is made with prior study of 04/13/2018. FINDINGS: The heart size is normal. The lungs appear to be clear, apart from minimal scarring or atelectasis in the left base. The pulmonary vascularity is normal. No effusion or pneumothorax is seen. IMPRESSION: Minimal left basilar scarring or atelectasis. The study is otherwise unremarkable. Dictated by: Dictated on workstation # [id number]
[2018-06-14 17:49] LABS: PLATELET CLUMPS SLIGHT; RBC MORPH NORMAL; SMUDGE CELLS SLIGHT
[2018-06-14 18:00] LABS: PROTHROMBIN TIME PATIENT 12.8 SEC (12.2-14.7)
[2018-06-14 18:16] VITALS: BP 147/76
[2018-06-14 20:00] VITALS: BP 173/105
[2018-06-14] MEDS ORDERED: cloNIDine 0.1 MG (CATAPRES) TAB PO ONE (20:00)
[2018-06-14] MEDS ORDERED: RT-LEVALBUTEROL (XOPENEX) 1.25 MG/3 ML NEB NON-FORMULARY INH SCH (22:00)
== END 2018-06-14 20:01 | disposition home or self-care (01) ==
LOC: EDUNIT# 17:04 → ER 17:05
DX: J98.01 Acute bronchospasm (principal); R00.0 Tachycardia, unspecified; J44.9 Chronic obstructive pulmonary disease, unspecified; I10 Essential (primary) hypertension; K21.9 Gastro-esophageal reflux disease without esophagitis; F41.9 Anxiety disorder, unspecified; F32.9 Major depressive disorder, single episode, unspecified; Z82.49 Family history of ischemic heart disease and other diseases of the circulatory system; Z90.89 Acquired absence of other organs; Z77.22 Contact with and (suspected) exposure to environmental tobacco smoke (acute) (chronic); Z88.5 Allergy status to narcotic agent; Z88.8 Allergy status to other drugs, medicaments and biological substances; Z79.51 Long term (current) use of inhaled steroids
CPT/HCPCS: 36415; 71045; 80053; 83735; 83874; 84484; 85007; 85025; 85027; 85610; 85730; 93005; 93041; 94640; 96374; 96375

== ENCOUNTER 2018-06-22 17:08 | Emergency (ER) | payer OTHER ==
[~2018-06-22] VITALS: Ht 160 cm; Wt 63.5 kg
--- NOTE | 2018-06-22 17:21 | ED Cardiac General ---
History of Present Illness General Stated Complaint: SVT/ELEV BP Source: patient Exam Limitations: no limitations History of Present Illness Date Seen by Provider: Jun 22, 2018 Time Seen by Provider: 17:19 Initial Comments To ER with reports of palpitations tachycardia and chest tightness that began at 3:45 PM after unloading groceries. She has a history of SVT this is typically how that presents for her. She took 100 mg of metoprolol at home without relief. She was seen here last week by me for this, we tried adenosine which failed to convert, she was then given Cardizem 10 mg IV bolus which converted her to normal sinus rhythm which she sustained. Severity: moderate Location: central Activities at Onset: activity NTG SL DRUG AND ALCOHOL COUNSELLOR: No ASA po DRUG AND ALCOHOL COUNSELLOR: No Associated Systoms: Chest Pain Allergies and Home Medications Allergies Coded Allergies: codeine (Verified Allergy, Unknown, 03/23/08) gatifloxacin (Verified Allergy, Unknown, 03/23/08) nitrofurantoin (Verified Allergy, Unknown, 03/23/08) Home Medications Albuterol Sulfate 8 Gm Hfa.aer.ad, 2 PUFF IH QID PRN for SHORTNESS OF BREATH, ( Reported) Hydrocodone Bit/Acetaminophen 1 Each Tablet, 1 TAB PO Q6H PRN for PAIN, ( Reported) Ibuprofen 200 Mg Tablet, 600 MG PO BID PRN for PAIN, (Reported) Ipratropium [place] 0.2 Mg/1 Ml Solution, 0.5 MG IH Q6H PRN for SHORTNESS OF BREATH May mix with Xopenex Prescribed by: MONTSERRAT SANTOS on 08/19/17 0919 Lactobacillus Combo No.11 1 Each Cap.sprink, 1 EACH PO BID Prescribed by: ARSLAN COHEN on 12/13/17 0918 Levalbuterol Hcl 1.25 Mg/0.5 Ml Vial.neb, 1.25 MG IH Q4H PRN for SHORTNESS OF BREATH, (Reported) Lorazepam 1 Mg Tab, 1 MG PO TID PRN for ANXIETY, (Reported) Metoprolol Tartrate 50 Mg Tablet, 50 MG PO TID, (Reported) Patient Home Medication List Home Medication List Reviewed: Yes Review of Systems Review of Systems Constitutional: see HPI EENTM: No Symptoms Reported Respiratory: See HPI, Shortness of Air Cardiovascular: See HPI, Chest Pain, Palpitations Gastrointestinal: See HPI Genitourinary: No Symptoms Reported Musculoskeletal: no symptoms reported Skin: no symptoms reported Psychiatric/Neurological: No Symptoms Reported Endocrine: No Symptoms Reported Hematologic/Lymphatic: No Symptoms Reported Past Sbfvzgu-Ywrpmb-Eaepgg Hx Patient Social History 2nd Hand Smoke Exposure: Yes Recent Foreign Travel: No Contact w/Someone Who Travel: No Recent Hopitalizations: No Seasonal Allergies Seasonal Allergies: Yes Past Medical History Surgeries: Yes Appendectomy Respiratory: Yes Asthma, COPD Currently Using CPAP: No Currently Using BIPAP: No Cardiac: Yes (SVT) 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, Irregular Heartbeat Neurological: No Reproductive Disorders: No Female Reproductive Disorders: Denies 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 Sexually Transmitted Disease: No Genitourinary: No Gastrointestinal: Yes Gastroesophageal Reflux Musculoskeletal: Yes (RIGHT HUMERUS FRACTURE, R FOOT) Arthritis, Fractures Endocrine: No HEENT: No Cancer: No Psychosocial: Yes Anxiety, Depression Integumentary: No Blood Disorders: No Family Medical History Dementia 19 MOTHER, , Age:88, Onset:60 years & older FH: CAD (coronary artery disease) 19 FATHER, , Age:64, Onset:60 years & older FH: CHF (congestive heart failure) 19 MOTHER, , Age:88, Onset:60 years & older Myocardial infarction 19 MOTHER, , Age:88, Onset:50's - 60 No Family History of: AIDS Abdominal aortic aneurysm Damar's disease Alcoholism Alzheimer's disease Aphasia Arthritis Asthma Cancer of mouth Cardiovascular disease Cataracts Colon cancer Completed stroke Congenital disease Congenital heart disease Coronary thrombosis Cystic fibrosis Deafness or hearing loss Diabetes mellitus Drug abuse Dysphasia Fibrocystic disease of breast Gastroenteritis Glaucoma Headache disorder Hypercholesterolemia 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 Infertility Kidney disease Neoplasm Not obtainable due to adoption Osteoporosis Parkinson's disease Prostate cancer Psychosocial problem Respiratory disorder Seizure disorder Severe allergy Thyroid disease Tuberculosis Visual disorder Heart Disease, Diabetes, 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 Physical Exam Vital Signs Capillary Refill : Height, Weight, BMI Height: 5'3.00" Weight: 140lbs. 0.0oz. 63.269689lu; 24.9 BMI Method:Stated General Appearance: No Apparent Distress, WD/WN HEENT: PERRL/EOMI, TMs Normal Neck: Full Range of Motion, Normal Inspection Respiratory: Normal Breath Sounds, No Accessory Muscle Use, No Respiratory Distress Cardiovascular: Normal Peripheral Pulses, Tachycardia (no complex regular rate 144.) Gastrointestinal: Non Tender, Soft Extremity: Normal Capillary Refill, Normal Inspection Neurologic/Psychiatric: Alert, Oriented x3 Progress/Results/Core Measures Results/Orders Lab Results Laboratory Tests Test 06/22/18 17:21 Range/Units White Blood Count 9.7 4.3-11.0 10^3/uL Red Blood Count 5.69 4.35-5.85 10^6/uL Hemoglobin 17.3 H 11.5-16.0 G/DL Hematocrit 51 35-52 % Mean Corpuscular Volume 89 80-99 FL Mean Corpuscular Hemoglobin 30 25-34 PG Mean Corpuscular Hemoglobin Concent 34 32-36 G/DL Red Cell Distribution Width 14.3 10.0-14.5 % Platelet Count 378 130-400 10^3/uL Mean Platelet Volume 9.6 7.4-10.4 FL Neutrophils (%) (Auto) 86 H 42-75 % Lymphocytes (%) (Auto) 11 L 12-44 % Monocytes (%) (Auto) 3 0-12 % Eosinophils (%) (Auto) 0 0-10 % Basophils (%) (Auto) 0 0-10 % Neutrophils # (Auto) 8.3 H 1.8-7.8 X 10^3 Lymphocytes # (Auto) 1.1 1.0-4.0 X 10^3 Monocytes # (Auto) 0.2 0.0-1.0 X 10^3 Eosinophils # (Auto) 0.0 0.0-0.3 10^3/uL Basophils # (Auto) 0.0 0.0-0.1 10^3/uL Prothrombin Time 12.2 12.2-14.7 SEC INR Comment 0.9 0.8-1.4 Activated Partial Thromboplast Time 28 24-35 SEC Sodium Level 140 135-145 MMOL/L Potassium Level 4.5 3.6-5.0 MMOL/L Chloride Level 105 98-107 MMOL/L Carbon Dioxide Level 23 21-32 MMOL/L Anion Gap 12 5-14 MMOL/L Blood Urea Nitrogen 9 7-18 MG/DL Creatinine 0.88 0.60-1.30 MG/DL Estimat Glomerular Filtration Rate > 60 BUN/Creatinine Ratio 10 Glucose Level 159 H 70-105 MG/DL Calcium Level 10.8 H 8.5-10.1 MG/DL Corrected Calcium 10.4 H 8.5-10.1 MG/DL Magnesium Level 2.4 1.8-2.4 MG/DL Total Bilirubin 1.1 H 0.1-1.0 MG/DL Aspartate Amino Transf (AST/SGOT) 14 5-34 U/L Alanine Aminotransferase (ALT/SGPT) 22 0-55 U/L Alkaline Phosphatase 62 40-136 U/L Myoglobin 49.0 10.0-92.0 NG/ML Troponin I < 0.30 <0.30 NG/ML B-Type Natriuretic Peptide 43.1 <100.0 PG/ML Total Protein 7.8 6.4-8.2 GM/DL Albumin 4.5 3.2-4.5 GM/DL My Orders Orders - RYAN PARDO APRN Cbc With Automated Diff (06/22/18 17:17) Magnesium (06/22/18 17:17) Chest 1 View, Ap/Pa Only (06/22/18 17:17) Ekg Tracing (06/22/18 17:17) Cardiac Profile 1 (06/22/18 17:17) Comprehensive Metabolic Panel (06/22/18 17:17) Myoglobin Serum (06/22/18 17:17) Protime With Inr (06/22/18 17:17) Partial Thromboplastin Time (06/22/18 17:17) O2 (06/22/18 17:17) Monitor-Rhythm Ecg Trace Only (06/22/18 17:17) Lipid Panel (06/23/18 06:00) Aspirin Chewable Tablet (Baby Aspirin Ch (06/22/18 17:30) Saline Lock/Iv-Start (06/22/18 17:17) BNP (06/22/18 17:17) Diltiazem Injection (Cardizem Injection) (06/22/18 17:30) Ekg Tracing (06/22/18 17:24) Medications Given in ED Current Medications Medications Dose Ordered Sig/Dusty Route Start Time Stop Time Status Last Admin Dose Admin Aspirin 324 mg ONCE ONCE PO 06/22/18 17:30 06/22/18 17:31 DC 06/22/18 17:29 324 MG Diltiazem HCl 10 mg ONCE ONCE IVP 06/22/18 17:30 06/22/18 17:31 DC 06/22/18 17:34 10 MG Departure Communication (Admissions) 1724-after 2 IV attempts by RN patient converted to normal sinus rhythm rate in the 80s. This is before receiving Cardizem. 1732-patient is now back into a narrow complex tachycardia with a rate of 144. We will proceed with Cardizem 10 mg IV bolus. Impression Primary Impression: Supraventricular tachycardia Disposition: HOME, SELF-CARE Condition: Improved Departure-Patient Inst. Decision time for Depature: 18:56 Referrals: ESTER ALLRED MD (PCP/Family) Primary Care Physician Patient Instructions: Supraventricular Tachycardia (SVT), Chest Pain (DC) Add. Discharge Instructions: 1. 1. 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 Scripts Diltiazem HCl (Cardizem Cd) 120 Mg Cap.er.24h 120 MG PO DAILY, #14 CAP Prov: RYAN PARDO APRN 06/22/18 RYAN PARDO APRN Jun 22, 2018 17:21
[2018-06-22 17:27] LABS: BASOPHILS % (AUTO) 0 % (0-10); EOSINOPHILS % (AUTO) 0 % (0-10); HEMATOCRIT 51 % (35-52); HEMOGLOBIN 17.3 G/DL (11.5-16.0); LYMPHOCYTES # (AUTO) 1.1 X 10^3 (1.0-4.0); LYMPHOCYTES % (AUTO) 11 % (12-44); MEAN CORPUSCULAR HEMOGLOBIN 30 PG (25-34); MEAN CORPUSCULAR HGB CONC 34 G/DL (32-36); MEAN CORPUSCULAR VOLUME 89 FL (80-99); MEAN PLATELET VOLUME 9.6 FL (7.4-10.4); MONOCYTES # (AUTO) 0.2 X 10^3 (0.0-1.0); MONOCYTES % (AUTO) 3 % (0-12); NEUTROPHILS # (AUTO) 8.3 X 10^3 (1.8-7.8); NEUTROPHILS % (AUTO) 86 % (42-75); PLATELET COUNT 378 10^3/uL (130-400); RED BLOOD COUNT 5.69 10^6/uL (4.35-5.85); RED CELL DISTRIBUTION WIDTH 14.3 % (10.0-14.5); WHITE BLOOD COUNT 9.7 10^3/uL (4.3-11.0)
[2018-06-22] MEDS ORDERED: DILTIAZEM 25 MG/5 ML INJ (CARDIZEM) VIAL IVP ONE (17:30)
[2018-06-22] MEDS ORDERED: ASPIRIN 81 MG CHEW (CHILDREN'S ASA) PO ONE (17:30)
[2018-06-22 17:43] LABS: INR 0.9 (0.8-1.4); PROTHROMBIN TIME PATIENT 12.2 SEC (12.2-14.7)
[2018-06-22 17:47] LABS: ALANINE AMINOTRANSFERASE 22 U/L (0-55); ALBUMIN 4.5 GM/DL (3.2-4.5); ALKALINE PHOSPHATASE 62 U/L (40-136); BILIRUBIN,TOTAL 1.1 MG/DL (0.1-1.0); BUN/CREATININE RATIO 10; CALCIUM 10.8 MG/DL (8.5-10.1); CARBON DIOXIDE 23 MMOL/L (21-32); CHLORIDE 105 MMOL/L (98-107); CREATININE SERUM 0.88 MG/DL (0.60-1.30); GFR ESTIMATED > 60; GLUCOSE 159 MG/DL (70-105); MAGNESIUM 2.4 MG/DL (1.8-2.4); POTASSIUM 4.5 MMOL/L (3.6-5.0); SODIUM 140 MMOL/L (135-145); TOTAL PROTEIN 7.8 GM/DL (6.4-8.2)
--- NOTE | 2018-06-22 18:08 | Diagnostic Imaging Report ---
EXAM: Portable chest INDICATION: Elevated blood pressure was ventricular tachycardia. COMPARISON: 06/14/2018. FINDINGS: There is minimal atelectasis or scar at the left base. The left base appears unchanged from the previous study. There is no pneumothorax. There is no new alveolar infiltrate or consolidation. Heart size and mediastinal contours appear stable. Pulmonary vascularity appears normal. IMPRESSION: Stable appearance of the chest. No acute cardiopulmonary process is demonstrated. Dictated by: Dictated on workstation # [id number]
[2018-06-22] MEDS ORDERED: DILT120C82 PO (18:58)
[2018-06-22 19:02] VITALS: BP 159/87
== END 2018-06-22 19:02 | disposition home or self-care (01) ==
LOC: EDUNIT# 17:08 → ER 17:08
DX: I47.1 Supraventricular tachycardia (principal); J44.9 Chronic obstructive pulmonary disease, unspecified; I10 Essential (primary) hypertension; K21.9 Gastro-esophageal reflux disease without esophagitis; F41.9 Anxiety disorder, unspecified; F32.9 Major depressive disorder, single episode, unspecified; Z88.5 Allergy status to narcotic agent; Z88.8 Allergy status to other drugs, medicaments and biological substances; Z79.51 Long term (current) use of inhaled steroids; Z82.49 Family history of ischemic heart disease and other diseases of the circulatory system; Z77.22 Contact with and (suspected) exposure to environmental tobacco smoke (acute) (chronic); Z90.89 Acquired absence of other organs
CPT/HCPCS: 36415; 71045; 80053; 83735; 83874; 83880; 84484; 85025; 85610; 85730; 93005; 93041

== ENCOUNTER 2020-09-05 10:44 | Outpatient (RCR) | payer MEDICARE, OTHER ==
[~2020-09-05 10:44] MED LIST changes: +DILT120C82 PO; -LEVA1.2516; +LEVA1.2543
== END 2020-12-04 | disposition home or self-care (01) ==
LOC: CARD 10:44
PROVIDERS: ATTEND Internal Medicine
DX: R00.0 Tachycardia, unspecified (principal)
CPT/HCPCS: 93225; 93226

== ENCOUNTER 2020-12-12 14:19 | Emergency (ER) | payer OTHER ==
[~2020-12-12] VITALS: Ht 160 cm; Wt 62.0 kg
[2020-12-12] MEDS ORDERED: LORazepam 0.5 MG (ATIVAN) TABLET PO STA (15:00)
[2020-12-12 15:15] LABS: ALBUMIN 4.2 GM/DL (3.2-4.5); BASOPHILS # (AUTO) 0.1 10^3/uL (0.0-0.1); BASOPHILS % (AUTO) 1 % (0-10); CHLORIDE 106 MMOL/L (98-107); EOSINOPHILS # (AUTO) 0.5 10^3/uL (0.0-0.3); EOSINOPHILS % (AUTO) 5 % (0-10); HEMATOCRIT 52 % (35-52); HEMOGLOBIN 17.2 g/dL (11.5-16.0); LYMPHOCYTES # (AUTO) 2.3 X 10^3 (1.0-4.0); LYMPHOCYTES % (AUTO) 23 % (12-44); MEAN CORPUSCULAR HEMOGLOBIN 31 pg (25-34); MEAN CORPUSCULAR HGB CONC 33 g/dL (32-36); MEAN CORPUSCULAR VOLUME 94 fL (80-99); MEAN PLATELET VOLUME 9.5 fL (9.0-12.2); MONOCYTES # (AUTO) 0.8 X 10^3 (0.0-1.0); MONOCYTES % (AUTO) 8 % (0-12); NEUTROPHILS # (AUTO) 6.2 X 10^3 (1.8-7.8); NEUTROPHILS % (AUTO) 62 % (42-75); PLATELET COUNT 426 10^3/uL (130-400); SODIUM 142 MMOL/L (135-145)
[2020-12-12 15:16] LABS: CALCIUM 9.8 MG/DL (8.5-10.1)
[2020-12-12 15:17] LABS: PROTHROMBIN TIME PATIENT 13.5 SEC (12.2-14.7)
[2020-12-12 15:18] LABS: GLUCOSE 95 MG/DL (70-105)
[2020-12-12 15:19] LABS: BILIRUBIN,TOTAL 0.7 MG/DL (0.1-1.0); CARBON DIOXIDE 26 MMOL/L (21-32)
--- NOTE | 2020-12-12 15:20 | Diagnostic Imaging Report ---
INDICATION: Shortness of breath and chest pain. TECHNIQUE: PA chest obtained at 03:13 p.m. and compared to 06/22/2018. FINDINGS: Heart is borderline in size. Mediastinal silhouette is unremarkable. The lungs appear clear. There is a minimal left pleural effusion. IMPRESSION: Borderline heart size with minimal left pleural effusion. No consolidation or edema. Dictated by: Dictated on workstation # [id number]
[2020-12-12 15:21] LABS: ALKALINE PHOSPHATASE 68 U/L (40-136); CREATININE SERUM 0.79 MG/DL (0.60-1.30); GFR ESTIMATED > 60
[2020-12-12 15:22] LABS: BUN/CREATININE RATIO 13
[2020-12-12 15:24] LABS: ALANINE AMINOTRANSFERASE 17 U/L (0-55); MAGNESIUM 2.1 MG/DL (1.6-2.4)
--- NOTE | 2020-12-12 15:28 | ED Cardiac General ---
History of Present Illness General Chief Complaint: Cardiac/General Problems Stated Complaint: H BP, SOB Nursing Triage Note: PT CO OF ELEVATED BP AT HOME AND SOME SOA DT ASTHMA. DENIES C/P Source: patient, old records Exam Limitations: no limitations History of Present Illness Date Seen by Provider: Dec 12, 2020 Time Seen by Provider: 14:47 Initial Comments This 75-year-old woman presents to the emergency room with primary complaint of exacerbation of hypertension. She also reports shortness of air which is chronic and intermittent due to asthma. She uses a Xopenex inhaler which tends to elevate her heart rate and blood pressure. She also reports frequent SVT episodes which have been occurring with increasing frequency lately. She had taken her metoprolol around the time of her blood pressure exacerbation and so did not know if she should also take her clonidine. She recently had an increase in her metoprolol dosage. She does have clonidine at home to use as needed for hypertensive exacerbations but was hesitant to take it so close to taking her metoprolol. She also reports having a longer than usual episode of SVT that woke her up in the night, and she thinks this may be contributing to her episode of hypertension. She also recently completed a prednisone taper for her COPD. She denies any secondary symptoms of hypertension such as new headache, changes in vision, etc. Dr. Michael is her primary care provider and Dr. Alarcon is her data warehousing architect. Allergies and Home Medications Allergies Coded Allergies: codeine (Verified Allergy, Unknown, 03/23/08) gatifloxacin (Verified Allergy, Unknown, 03/23/08) nitrofurantoin (Verified Allergy, Unknown, 03/23/08) Home Medications Albuterol Sulfate 8 Gm Hfa.aer.ad, 2 PUFF IH QID PRN for SHORTNESS OF BREATH, (Reported) Diltiazem HCl 120 Mg Cap.er.24h, 120 MG PO DAILY Prescribed by: RYAN PARDO on 06/22/18 5646 Hydrocodone Bit/Acetaminophen 1 Each Tablet, 1 TAB PO Q6H PRN for PAIN, (Reported) Ibuprofen 200 Mg Tablet, 600 MG PO BID PRN for PAIN, (Reported) Ipratropium [place] 0.2 Mg/1 Ml Solution, 0.5 MG IH Q6H PRN for SHORTNESS OF BREATH May mix with Xopenex Prescribed by: MONTSERRAT SANTOS on 08/19/17918 Lactobacillus Combo No.11 1 Each Cap.sprink, 1 EACH PO BID Prescribed by: ARSLAN COHEN on 12/13/17917 Levalbuterol Hcl 1.25 Mg/0.5 Ml Vial.neb, 1.25 MG IH Q4H PRN for SHORTNESS OF BREATH, (Reported) Lorazepam 1 Mg Tab, 1 MG PO TID PRN for ANXIETY, (Reported) Metoprolol Tartrate 50 Mg Tablet, 50 MG PO TID, (Reported) Patient Home Medication List Home Medication List Reviewed: Yes Review of Systems Review of Systems Constitutional: no symptoms reported EENTM: No Symptoms Reported Respiratory: See HPI Cardiovascular: See HPI Gastrointestinal: No Symptoms Reported Genitourinary: No Symptoms Reported Musculoskeletal: no symptoms reported Skin: no symptoms reported Psychiatric/Neurological: No Symptoms Reported Endocrine: No Symptoms Reported Hematologic/Lymphatic: No Symptoms Reported Past Upnfwus-Fkwcfo-Dmohod Hx Past Med/Social Hx: Reviewed Nursing Past Med/Soc Hx Patient Social History Alcohol Use: Denies Use Smoking Status: Never a Smoker 2nd Hand Smoke Exposure: Yes Recent Infectious Disease Expo: No Recent Hopitalizations: No Immunizations Up To Date Tetanus Booster (TDap): Unknown PED Vaccines UTD: Yes Seasonal Allergies Seasonal Allergies: Yes Past Medical History Surgeries: Yes Appendectomy Respiratory: Yes Asthma, COPD Currently Using CPAP: No Currently Using BIPAP: No Cardiac: Yes (SVT) 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, Irregular Heartbeat Neurological: No Reproductive Disorders: No Female Reproductive Disorders: Denies 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 Sexually Transmitted Disease: No Genitourinary: No Gastrointestinal: Yes Gastroesophageal Reflux Musculoskeletal: Yes (RIGHT HUMERUS FRACTURE, R FOOT) Arthritis, Fractures Endocrine: No HEENT: No Cancer: No Psychosocial: Yes Anxiety, Depression Integumentary: No Blood Disorders: No Family Medical History Dementia 19 MOTHER, , Age:88, Onset:60 years & older FH: CAD (coronary artery disease) 19 FATHER, , Age:64, Onset:60 years & older FH: CHF (congestive heart failure) 19 MOTHER, , Age:88, Onset:60 years & older Myocardial infarction 19 MOTHER, , Age:88, Onset:50's - 60 No Family History of: AIDS Abdominal aortic aneurysm Barry's disease Alcoholism Alzheimer's disease Aphasia Arthritis Asthma Cancer of mouth Cardiovascular disease Cataracts Colon cancer Completed stroke Congenital disease Congenital heart disease Coronary thrombosis Cystic fibrosis Deafness or hearing loss Diabetes mellitus Drug abuse Dysphasia Fibrocystic disease of breast Gastroenteritis Glaucoma Headache disorder Hypercholesterolemia 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 Infertility Kidney disease Neoplasm Not obtainable due to adoption Osteoporosis Parkinson's disease Prostate cancer Psychosocial problem Respiratory disorder Seizure disorder Severe allergy Thyroid disease Tuberculosis Visual disorder Heart Disease, Diabetes, 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 Physical Exam Vital Signs Vital Signs - First Documented 12/12/20 12/12/20 14:23 16:46 Temp 36.5 Pulse 76 Resp 20 B/P (MAP) 220/121 (154) Pulse Ox 95 Capillary Refill : Less Than 3 Seconds Height, Weight, BMI Height: 5'3.00" Weight: 140lbs. 0.0oz. 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 as Tested Skin: Normal Color, Warm/Dry Progress/Results/Core Measures Results/Orders Lab Results Laboratory Tests Test 12/12/20 14:30 Range/Units White Blood Count 10.0 4.3-11.0 10^3/uL Red Blood Count 5.59 H 3.80-5.11 10^6/uL Hemoglobin 17.2 H 11.5-16.0 g/dL Hematocrit 52 35-52 % Mean Corpuscular Volume 94 80-99 fL Mean Corpuscular Hemoglobin 31 25-34 pg Mean Corpuscular Hemoglobin Concent 33 32-36 g/dL Red Cell Distribution Width 14.7 H 10.0-14.5 % Platelet Count 426 H 130-400 10^3/uL Mean Platelet Volume 9.5 9.0-12.2 fL Immature Granulocyte % (Auto) 1 % Neutrophils (%) (Auto) 62 42-75 % Lymphocytes (%) (Auto) 23 12-44 % Monocytes (%) (Auto) 8 0-12 % Eosinophils (%) (Auto) 5 0-10 % Basophils (%) (Auto) 1 0-10 % Neutrophils # (Auto) 6.2 1.8-7.8 X 10^3 Lymphocytes # (Auto) 2.3 1.0-4.0 X 10^3 Monocytes # (Auto) 0.8 0.0-1.0 X 10^3 Eosinophils # (Auto) 0.5 H 0.0-0.3 10^3/uL Basophils # (Auto) 0.1 0.0-0.1 10^3/uL Immature Granulocyte # (Auto) 0.1 0.0-0.1 10^3/uL Prothrombin Time 13.5 12.2-14.7 SEC INR Comment 1.0 0.8-1.4 Activated Partial Thromboplast Time 31 24-35 SEC Sodium Level 142 135-145 MMOL/L Potassium Level 4.0 3.6-5.0 MMOL/L Chloride Level 106 98-107 MMOL/L Carbon Dioxide Level 26 21-32 MMOL/L Anion Gap 10 5-14 MMOL/L Blood Urea Nitrogen 10 7-18 MG/DL Creatinine 0.79 0.60-1.30 MG/DL Estimat Glomerular Filtration Rate > 60 BUN/Creatinine Ratio 13 Glucose Level 95 70-105 MG/DL Calcium Level 9.8 8.5-10.1 MG/DL Corrected Calcium 9.6 8.5-10.1 MG/DL Magnesium Level 2.1 1.6-2.4 MG/DL Total Bilirubin 0.7 0.1-1.0 MG/DL Aspartate Amino Transf (AST/SGOT) 15 5-34 U/L Alanine Aminotransferase (ALT/SGPT) 17 0-55 U/L Alkaline Phosphatase 68 40-136 U/L Myoglobin 49.0 10.0-92.0 NG/ML Troponin I < 0.028 <0.028 NG/ML B-Type Natriuretic Peptide 35.4 <100.0 PG/ML Total Protein 7.0 6.4-8.2 GM/DL Albumin 4.2 3.2-4.5 GM/DL TSH [place] Testing 1.44 0.35-4.94 UIU/ML My Orders Orders - MONTSERRAT JESSICA MD Cbc With Automated Diff (12/12/20 14:47) Magnesium (12/12/20 14:47) Chest 1 View, Ap/Pa Only (12/12/20 14:47) Ekg Tracing (12/12/20 14:47) Comprehensive Metabolic Panel (12/12/20 14:47) Myoglobin Serum (12/12/20 14:47) Protime With Inr (12/12/20 14:47) Partial Thromboplastin Time (12/12/20 14:47) O2 (12/12/20 14:47) Monitor-Rhythm Ecg Trace Only (12/12/20 14:47) Ed Iv/Invasive Line Start (12/12/20 14:47) BNP (12/12/20 14:47) Troponin I (12/12/20 14:47) Thyroid Analyzer (12/12/20 14:48) Lorazepam Tablet (Ativan Tablet) (12/12/20 15:00) Vital Signs/I&O 12/12/20 12/12/20 14:23 16:46 Temp 36.5 Pulse 76 61 Resp 20 20 B/P (MAP) 220/121 (154) 153/81 (154) Pulse Ox 95 Blood Pressure Mean: 154 Progress Progress Note : Progress Note Patient was instructed to take her clonidine (her own supply) and she was additionally given her usual dose of lorazepam. Blood pressure trended down nicely. We did discuss her increasing frequency of SVT and I advised her to follow-up with Dr. Alarcon. I encouraged her to continue following instructions per Dr. Michael for managing her hypertensive exacerbations. Work-up was unremarkable except for mildly elevated hemoglobin which is chronic for her. Initial ECG Impression Date: Dec 12, 2020 Initial ECG Impression Time: 14:35 Initial ECG Rate: 68 Initial ECG Rhythm: Normal Sinus Initial ECG Intervals: Normal Comment Sinus rhythm with no ST elevation or depression. No abnormal intervals. LVH by voltage criteria. Diagnostic Imaging Diagonstic Imaging: Xray Plain Films/CT/US/NM/MRI: chest Comments Chest x-ray viewed by me and report reviewed. See report below: NAME: GE [facility] REC#: [id number] PT STATUS: REG ER : 1945 PHYSICIAN: MONTSERRAT JESSICA MD ADMIT DATE: 12/12/20/ER Draft Date of Exam:12/12/20 CHEST 1 VIEW, AP/PA ONLY INDICATION: Shortness of breath and chest pain. TECHNIQUE: PA chest obtained at 03:13 p.m. and compared to 06/22/2018. FINDINGS: Heart is borderline in size. Mediastinal silhouette is unremarkable. The lungs appear clear. There is a minimal left pleural effusion. IMPRESSION: Borderline heart size with minimal left pleural effusion. No consolidation or edema. Dictated on workstation # [id number] Dict: 12/12/20 1516 Trans: 12/12/20 1520 [id number] Interpreted by: SERGO WEAVER MD Departure Impression Primary Impression: Hypertensive urgency Disposition: HOME, SELF-CARE Condition: Improved Departure-Patient Inst. Decision time for Depature: 16:34 Referrals: ESTER MICHAEL MD (PCP/Family) Primary Care Physician Patient Instructions: High Blood Pressure in Adults Add. Discharge Instructions: Continue to follow instructions on management of blood pressure, including use of clonidine, as previously directed by Dr. Michael. If clonidine alone does not sufficiently lower your blood pressure, try taking your Ativan (lorazepam) as well. Follow-up with Dr. Michael and Dr. Armas as soon as possible. Call with questions or concerns. Return to the emergency room if you have worsening symptoms. All discharge instructions reviewed with patient and/or family. Voiced understanding. Copy Copies To 1: ESTER MICHAEL MD Copies To 2: YAHIR ALARCON MD, JOSHUA T MD Dec 12, 2020 15:28
[2020-12-12 15:57] LABS: TSH (THYROID ANALYZER) 1.44 UIU/ML (0.35-4.94)
[2020-12-12 16:46] VITALS: BP 153/81
== END 2020-12-12 16:46 | disposition home or self-care (01) ==
LOC: EDUNIT# 14:19 → ER 14:21
DX: I10 Essential (primary) hypertension (principal); J44.9 Chronic obstructive pulmonary disease, unspecified; F41.9 Anxiety disorder, unspecified; Z77.22 Contact with and (suspected) exposure to environmental tobacco smoke (acute) (chronic); Z88.5 Allergy status to narcotic agent; Z88.1 Allergy status to other antibiotic agents; Z88.8 Allergy status to other drugs, medicaments and biological substances; Z82.49 Family history of ischemic heart disease and other diseases of the circulatory system
CPT/HCPCS: 36415; 71045; 80053; 83735; 83874; 83880; 84443; 84484; 85025; 85610; 85730; 93005; 93041

== ENCOUNTER 2020-12-20 18:05 | Emergency (ER) | payer OTHER ==
[~2020-12-20] VITALS: Ht 160 cm; Wt 62.0 kg
[2020-12-20] MEDS ORDERED: cloNIDine 0.1 MG (CATAPRES) TAB ONE (18:31)
--- NOTE | 2020-12-20 18:54 | ED General ---
General Stated Complaint: L EYE PAIN / REDNESS Source of Information: Patient Exam Limitations: No Limitations History of Present Illness Date Seen by Provider: Dec 20, 2020 Time Seen by Provider: 18:25 Initial Comments Patient is a 75-year-old female who presents to the emergency department today with a chief complaint of bleeding around her left eye. Patient noticed it this evening and became concerned with her blood pressure being higher than normal. Patient triage is with a blood pressure of 230s over 120s. Incidentally noted to be in supraventricular tachycardia at a rate of 150-160. Patient states that she has frequent bouts of SVT. She usually does a vagal maneuver at home and is able to convert herself. She did not realize that she was in SVT until she presented to the emergency department. Patient states that she has a history of asthma and is coughing a lot. I suspect this is the etiology for the subconjunctival hemorrhage to the left eye. Patient has no visual field complaints. No eye pain. Patient states that her primary care doctor tells her to take a p.o. clonidine of 0.1 mg when she has elevated blood pressure of this range. Patient attempted vagal maneuvers in the emergency department on her own. Then an ice water bath was prepared and she submerged her face 3 times with successful conversion of her SVT down to a rate of 90s. She has no recent complaints of illness. No chest pain, no shortness of breath that is unusual for her. Although she also states that she always feels a little short of breath and has to use her nebulizer at home and her MDI frequently. No excess swelling in her lower extremities. No nausea vomiting or diarrhea no urinary complaints. All other review of systems reviewed and negative except as stated. Timing/Duration: 4-6 Hours Severity: Mild Associated Systoms: Denies Symptoms Allergies and Home Medications Allergies Coded Allergies: codeine (Verified Allergy, Unknown, 03/23/08) gatifloxacin (Verified Allergy, Unknown, 03/23/08) nitrofurantoin (Verified Allergy, Unknown, 03/23/08) Home Medications Albuterol Sulfate 8 Gm Hfa.aer.ad, 2 PUFF IH QID PRN for SHORTNESS OF BREATH, (Reported) Diltiazem HCl 120 Mg Cap.er.24h, 120 MG PO DAILY Prescribed by: RYAN PARDO on 06/22/18 6974 Hydrocodone Bit/Acetaminophen 1 Each Tablet, 1 TAB PO Q6H PRN for PAIN, (Reported) Ibuprofen 200 Mg Tablet, 600 MG PO BID PRN for PAIN, (Reported) Ipratropium [place] 0.2 Mg/1 Ml Solution, 0.5 MG IH Q6H PRN for SHORTNESS OF BREATH May mix with Xopenex Prescribed by: MONTSERRAT SANTOS on 08/19/17 0919 Lactobacillus Combo No.11 1 Each Cap.sprink, 1 EACH PO BID Prescribed by: ARSLAN COHEN on 12/13/17 0918 Levalbuterol Hcl 1.25 Mg/0.5 Ml Vial.neb, 1.25 MG IH Q4H PRN for SHORTNESS OF BREATH, (Reported) Lorazepam 1 Mg Tab, 1 MG PO TID PRN for ANXIETY, (Reported) Metoprolol Tartrate 50 Mg Tablet, 50 MG PO TID, (Reported) Patient Home Medication List Home Medication List Reviewed: Yes Review of Systems Review of Systems Constitutional: see HPI EENTM: other (Bleeding around her left eye) Respiratory: short of breath (Chronic) Cardiovascular: no symptoms reported Gastrointestinal: no symptoms reported Genitourinary: no symptoms reported Musculoskeletal: no symptoms reported Skin: no symptoms reported Psychiatric/Neurological: No Symptoms Reported All Other Systems Reviewed Negative Unless Noted: Yes Past Vsfgyhl-Ppgiqq-Ivoroo Hx Patient Social History 2nd Hand Smoke Exposure: Yes Recent Hopitalizations: No Immunizations Up To Date Tetanus Booster (TDap): Unknown PED Vaccines UTD: Yes Seasonal Allergies Seasonal Allergies: Yes Past Medical History Surgeries: Yes Appendectomy Respiratory: Yes Asthma, COPD Currently Using CPAP: No Currently Using BIPAP: No Cardiac: Yes (SVT) 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, Irregular Heartbeat Neurological: No Reproductive Disorders: No 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 Sexually Transmitted Disease: No Genitourinary: No Gastrointestinal: Yes Gastroesophageal Reflux Musculoskeletal: Yes (RIGHT HUMERUS FRACTURE, R FOOT) Arthritis, Fractures Endocrine: No HEENT: No Cancer: No Psychosocial: Yes Anxiety, Depression Integumentary: No Blood Disorders: No Family Medical History Dementia 19 MOTHER, , Age:88, Onset:60 years & older FH: CAD (coronary artery disease) 19 FATHER, , Age:64, Onset:60 years & older FH: CHF (congestive heart failure) 19 MOTHER, , Age:88, Onset:60 years & older Myocardial infarction 19 MOTHER, , Age:88, Onset:50's - 60 No Family History of: AIDS Abdominal aortic aneurysm Redford's disease Alcoholism Alzheimer's disease Aphasia Arthritis Asthma Cancer of mouth Cardiovascular disease Cataracts Colon cancer Completed stroke Congenital disease Congenital heart disease Coronary thrombosis Cystic fibrosis Deafness or hearing loss Diabetes mellitus Drug abuse Dysphasia Fibrocystic disease of breast Gastroenteritis Glaucoma Headache disorder Hypercholesterolemia 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 Infertility Kidney disease Neoplasm Not obtainable due to adoption Osteoporosis Parkinson's disease Prostate cancer Psychosocial problem Respiratory disorder Seizure disorder Severe allergy Thyroid disease Tuberculosis Visual disorder Heart Disease, Diabetes, 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 Physical Exam Vital Signs Vital Signs - First Documented 12/20/20 12/20/20 18:25 21:18 Temp 36.6 Pulse 154 Resp 20 B/P (MAP) 221/136 (164) Pulse Ox 97 O2 Delivery Room Air Capillary Refill : Height, Weight, BMI Height: 5'3.00" Weight: 140lbs. 0.0oz. 63.206822ab; 24.00 BMI Method:Stated General Appearance: No Apparent Distress, WD/WN Eyes: Left Eye Other (Patient has subconjunctival hemorrhage from 3:00 to 6:00 left lateral eye); Bilateral Eye PERRL, Bilateral Eye EOMI HEENT: PERRL/EOMI, Normal ENT Inspection Neck: Full Range of Motion, Normal Inspection Respiratory: Chest Non Tender, Lungs Clear, Normal Breath Sounds Cardiovascular: Tachycardia Gastrointestinal: Normal Bowel Sounds, Non Tender, Soft Extremity: Normal Capillary Refill, Normal Inspection, Normal Range of Motion, Non Tender, No Pedal Edema Neurologic/Psychiatric: Alert, Oriented x3, No Motor/Sensory Deficits, Normal Mood/Affect Skin: Normal Color, Warm/Dry Progress/Results/Core Measures Suspected Sepsis SIRS Temperature: Pulse: Respiratory Rate: Blood Pressure / Mean: Results/Orders My Orders Orders - BRITT OLMOS MD Clonidine Tablet (Catapres Tablet) (12/20/20 18:31) Clonidine Tablet (Catapres Tablet) (12/20/20 20:15) Ibuprofen Tablet (Motrin Tablet) (12/20/20 20:45) Ekg Tracing (12/20/20 18:29) Ekg Tracing (12/20/20 18:41) Medications Given in ED Vital Signs/I&O 12/20/20 12/20/20 18:25 21:18 Temp 36.6 36.6 Pulse 154 75 Resp 20 16 B/P (MAP) 221/136 (164) 186/108 (164) Pulse Ox 97 98 O2 Delivery Room Air Capillary Refill : Progress Note : Time: 20:14 Progress Note Patient's blood pressure is 210/110 at this time. We will repeat her clonidine 0.1 mg at this time. Patient remains in a normal sinus rhythm in the 80s. No other complaints at this time. ECG Initial ECG Impression Date: Dec 20, 2020 Initial ECG Impression Time: 18:29 Initial ECG Rate: 154 EKG : EKG Time: 18:41 Rate: 91 Rhythm: Normal Sinus Intervals: Normal ECG Comparisson: Changed ECG Impression: Normal Departure Impression Primary Impression: Subconjunctival hemorrhage of left eye Additional Impressions: Supraventricular tachycardia High blood pressure Qualified Codes: I10 - Essential (primary) hypertension Disposition: 01 HOME, SELF-CARE Condition: Stable Departure-Patient Inst. Decision time for Depature: 18:53 Referrals: ESTER ALLRED MD (PCP/Family) Primary Care Physician Patient Instructions: High Blood Pressure in Adults Add. Discharge Instructions: Continue your home daily medications as prescribed. The bleeding around her left eye will improve on its own over the course of a week or so. Come back to the emergency department for any new complaints of racing heart, shortness of breath or any other emergent concerning symptoms. BRITT OLMOS MD Dec 20, 2020 18:54
[2020-12-20] MEDS ORDERED: cloNIDine 0.1 MG (CATAPRES) TAB PO ONE (20:15)
[2020-12-20] MEDS ORDERED: IBUPROFEN TABLET 200 MG TAB PO ONE (20:45)
[2020-12-20 21:18] VITALS: BP 186/108
== END 2020-12-20 21:16 | disposition home or self-care (01) ==
LOC: EDUNIT# 18:05 → ER 18:07
DX: H11.32 Conjunctival hemorrhage, left eye (principal); I10 Essential (primary) hypertension; I47.1 Supraventricular tachycardia; F41.9 Anxiety disorder, unspecified; F32.9 Major depressive disorder, single episode, unspecified; J44.9 Chronic obstructive pulmonary disease, unspecified; Z77.22 Contact with and (suspected) exposure to environmental tobacco smoke (acute) (chronic); Z88.1 Allergy status to other antibiotic agents; Z88.5 Allergy status to narcotic agent
CPT/HCPCS: 93005; 99283

== ENCOUNTER → 2021-05-03 | Outpatient (CLI) | payer OTHER ==
[2021-05-03 11:59] LABS: BILIRUBIN,URINE NEGATIVE (NEGATIVE); CLARITY,URINE CLEAR; COLOR,URINE YELLOW; GLUCOSE, URINE (UA) NEGATIVE (NEGATIVE); KETONES,URINE NEGATIVE (NEGATIVE); LEUKOCYTE ESTERASE ,URINE 1+ (NEGATIVE); NITRITE,URINE NEGATIVE (NEGATIVE); PROTEIN,URINE NEGATIVE (NEGATIVE)
[2021-05-03 12:14] LABS: BACTERIA,URINE TRACE /HPF; CALCIUM OXALATE CRYSTALS,UR FEW /LPF
== END ==
LOC: LAB 11:39
PROVIDERS: ATTEND Internal Medicine
DX: R06.00 Dyspnea, unspecified (principal)
CPT/HCPCS: 81000

== ENCOUNTER 2021-05-14 19:44 | Emergency (ER) | payer OTHER ==
[~2021-05-14] VITALS: Ht 160 cm; Wt 63.0 kg
[2021-05-14] MEDS ORDERED: FAMOTIDINE 20MG/2ML IV (PEPCID) IV STA (20:16)
[2021-05-14 20:21] LABS: BASOPHILS # (AUTO) 0.1 10^3/uL (0.0-0.1); BASOPHILS % (AUTO) 0 % (0-10); EOSINOPHILS % (AUTO) 0 % (0-10); HEMATOCRIT 54 % (35-52); LYMPHOCYTES # (AUTO) 1.5 10^3/uL (1.0-4.0); LYMPHOCYTES % (AUTO) 10 % (12-44); MEAN CORPUSCULAR HEMOGLOBIN 31 pg (25-34); MEAN CORPUSCULAR HGB CONC 33 g/dL (32-36); MEAN CORPUSCULAR VOLUME 95 fL (80-99); MEAN PLATELET VOLUME 9.8 fL (9.0-12.2); MONOCYTES # (AUTO) 0.3 10^3/uL (0.0-1.0); MONOCYTES % (AUTO) 2 % (0-12); NEUTROPHILS # (AUTO) 13.6 10^3/uL (1.8-7.8); NEUTROPHILS % (AUTO) 87 % (42-75); PLATELET COUNT 443 10^3/uL (130-400); WHITE BLOOD COUNT 15.6 10^3/uL (4.3-11.0)
--- NOTE | 2021-05-14 20:22 | ED Chest Pain ---
General Chief Complaint: Cardiac/General Problems Stated Complaint: CP Nursing Triage Note: C/O INDIGESTION X1 DAY REPORTS RELIEF WITH GAVISCON. Source: patient Exam Limitations: no limitations History of Present Illness Date Seen by Provider: May 14, 2021 Time Seen by Provider: 19:59 Initial Comments Patient to the ER by private conveyance from home with chief complaint of 4 hours of left-sided chest pain. She says she been having indigestion for the past day and when she belches it would get better. When she got a sudden onset moderate left-sided chest pain that she says has happened in the past related to her GERD. She took some Gaviscon and called her primary care doctor, Dr. Poole on but was not able to get a hold of him directly. Gaviscon did make her pain get better and then about an hour or so later it came back so she decided to come and get checked out. She has no personal history of coronary disease no history of CAD nor has she had a coronary angiogram. She is known to Dr. Alarcon for history of SVT. She takes metoprolol 25 mg twice a day and did take a dose of 25 mg about an hour prior to arrival. She says her blood pressure was about 150/70 at home. He says she has known whitecoat syndrome. She does not have high cholesterol, diabetes nor does she smoke since she was 35 years old. She does have a strong history of asthma however he did have to use Xopenex again this evening which helped her wheezing. He does not feel wheezy or short of air. He does not have worsening pain with exertion. She is not had any increased swelling in her hands or feet or legs. Allergies and Home Medications Allergies Coded Allergies: codeine (Verified Allergy, Unknown, 03/23/08) gatifloxacin (Verified Allergy, Unknown, 03/23/08) nitrofurantoin (Verified Allergy, Unknown, 03/23/08) Home Medications Albuterol Sulfate 8 Gm Hfa.aer.ad, 2 PUFF IH QID PRN for SHORTNESS OF BREATH, (Reported) Diltiazem HCl 120 Mg Cap.er.24h, 120 MG PO DAILY Prescribed by: RYAN PARDO on 06/22/18 9788 Hydrocodone Bit/Acetaminophen 1 Each Tablet, 1 TAB PO Q6H PRN for PAIN, (Reported) Ibuprofen 200 Mg Tablet, 600 MG PO BID PRN for PAIN, (Reported) Ipratropium [place] 0.2 Mg/1 Ml Solution, 0.5 MG IH Q6H PRN for SHORTNESS OF BREATH May mix with Xopenex Prescribed by: MONTSERRAT SANTOS on 08/19/17918 Lactobacillus Combo No.11 1 Each Cap.sprink, 1 EACH PO BID Prescribed by: ARSLAN COHEN on 12/13/17917 Levalbuterol Hcl 1.25 Mg/0.5 Ml Vial.neb, 1.25 MG IH Q4H PRN for SHORTNESS OF BREATH, (Reported) Lorazepam 1 Mg Tab, 1 MG PO TID PRN for ANXIETY, (Reported) Metoprolol Tartrate 50 Mg Tablet, 50 MG PO TID, (Reported) Pantoprazole Sodium 20 Mg Tablet.dr, 20 MG PO BID Prescribed by: EZEQUIEL BUI on 05/14/212137 Sucralfate 1 Gm Tablet, 1 GM PO QIDACHS Prescribed by: EZEQUIEL BUI on 05/14/212137 Patient Home Medication List Home Medication List Reviewed: Yes Review of Systems Review of Systems Constitutional: No chills, No dizziness, No fever, No malaise EENTM: No Blurred Vision, No Double Vision Respiratory: Denies Cough, Denies Shortness of Air Cardiovascular: See HPI, Chest Pain; Denies Edema, Denies Irregular Heart Rate, Denies Lightheadedness Gastrointestinal: Denies Abdomen Distended, Denies Abdominal Pain, Denies Constipated, Denies Diarrhea, Denies Nausea Genitourinary: Denies Burning, Denies Discharge Musculoskeletal: No back pain, No joint pain Psychiatric/Neurological: Denies Anxiety, Denies Depressed All Other Systems Reviewed Negative Unless Noted: Yes Past Ydtvtuc-Oyddja-Simpej Hx Patient Social History Tobacco Use?: No Smoking Status: Former Smoker Substance use?: No Alcohol Use?: No Pt feels they are or have been: No Immunizations Up To Date Tetanus Booster (TDap): Unknown PED Vaccines UTD: Yes Seasonal Allergies Seasonal Allergies: Yes Past Medical History Surgeries: Yes Appendectomy Respiratory: Yes Asthma, COPD Currently Using CPAP: No Currently Using BIPAP: No Cardiac: Yes (SVT) 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, Irregular Heartbeat Neurological: No Reproductive Disorders: No Female Reproductive Disorders: Denies 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 Sexually Transmitted Disease: No Genitourinary: No Gastrointestinal: Yes Gastroesophageal Reflux Musculoskeletal: Yes (RIGHT HUMERUS FRACTURE, R FOOT) Arthritis, Fractures Endocrine: No HEENT: No Cancer: No Psychosocial: Yes Anxiety, Depression Integumentary: No Blood Disorders: No Family Medical History Dementia 19 MOTHER, , Age:88, Onset:60 years & older FH: CAD (coronary artery disease) 19 FATHER, , Age:64, Onset:60 years & older FH: CHF (congestive heart failure) 19 MOTHER, , Age:88, Onset:60 years & older Myocardial infarction 19 MOTHER, , Age:88, Onset:50's - 60 No Family History of: AIDS Abdominal aortic aneurysm Saqib's disease Alcoholism Alzheimer's disease Aphasia Arthritis Asthma Cancer of mouth Cardiovascular disease Cataracts Colon cancer Completed stroke Congenital disease Congenital heart disease Coronary thrombosis Cystic fibrosis Deafness or hearing loss Diabetes mellitus Drug abuse Dysphasia Fibrocystic disease of breast Gastroenteritis Glaucoma Headache disorder Hypercholesterolemia 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 Infertility Kidney disease Neoplasm Not obtainable due to adoption Osteoporosis Parkinson's disease Prostate cancer Psychosocial problem Respiratory disorder Seizure disorder Severe allergy Thyroid disease Tuberculosis Visual disorder Heart Disease, Diabetes, 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 Physical Exam Vital Signs Vital Signs - First Documented 05/14/21 19:58 Temp 36.7 Pulse 86 Resp 16 B/P (MAP) 208/119 (148) Pulse Ox 93 O2 Delivery Room Air Capillary Refill : Less Than 3 Seconds Height, Weight, BMI Height: 5'3.00" Weight: 140lbs. 0.0oz. 63.447157mm; 24.00 BMI Method:Stated General Appearance: WD/WN, Anxious HEENT: PERRL/EOMI, Pharynx Normal, Moist Mucous Membranes Neck: Full Range of Motion, Normal Inspection Respiratory: Chest Non Tender, Lungs Clear, Normal Breath Sounds, No Accessory Muscle Use, No Respiratory Distress Cardiovascular: Regular Rate, Rhythm, No Edema, Normal Peripheral Pulses Gastrointestinal: Normal Bowel Sounds, Non Tender, Soft Extremity: Normal Capillary Refill, Normal Inspection, Normal Range of Motion, Non Tender, No Calf Tenderness, No Pedal Edema Neurologic/Psychiatric: Alert, Oriented x3 Skin: Normal Color, Warm/Dry Progress/Results/Core Measures Results/Orders Lab Results Laboratory Tests Test 05/14/21 20:10 05/14/21 21:53 Range/Units White Blood Count 15.6 H 4.3-11.0 10^3/uL Red Blood Count 5.74 H 3.80-5.11 10^6/uL Hemoglobin 18.0 H 11.5-16.0 g/dL Hematocrit 54 H 35-52 % Mean Corpuscular Volume 95 80-99 fL Mean Corpuscular Hemoglobin 31 25-34 pg Mean Corpuscular Hemoglobin Concent 33 32-36 g/dL Red Cell Distribution Width 14.7 H 10.0-14.5 % Platelet Count 443 H 130-400 10^3/uL Mean Platelet Volume 9.8 9.0-12.2 fL Immature Granulocyte % (Auto) 1 % Neutrophils (%) (Auto) 87 H 42-75 % Lymphocytes (%) (Auto) 10 L 12-44 % Monocytes (%) (Auto) 2 0-12 % Eosinophils (%) (Auto) 0 0-10 % Basophils (%) (Auto) 0 0-10 % Neutrophils # (Auto) 13.6 H 1.8-7.8 10^3/uL Lymphocytes # (Auto) 1.5 1.0-4.0 10^3/uL Monocytes # (Auto) 0.3 0.0-1.0 10^3/uL Eosinophils # (Auto) 0.0 0.0-0.3 10^3/uL Basophils # (Auto) 0.1 0.0-0.1 10^3/uL Immature Granulocyte # (Auto) 0.2 H 0.0-0.1 10^3/uL Neutrophils % (Manual) 89 % Lymphocytes % (Manual) 8 % Monocytes % (Manual) 2 % Eosinophils % (Manual) 1 % Blood Morphology Comment NORMAL Prothrombin Time 12.9 12.2-14.7 SEC INR Comment 0.9 0.8-1.4 Activated Partial Thromboplast Time 29 24-35 SEC Sodium Level 143 135-145 MMOL/L Potassium Level 4.0 3.6-5.0 MMOL/L Chloride Level 104 98-107 MMOL/L Carbon Dioxide Level 29 21-32 MMOL/L Anion Gap 10 5-14 MMOL/L Blood Urea Nitrogen 14 7-18 MG/DL Creatinine 0.89 0.60-1.30 MG/DL Estimat Glomerular Filtration Rate 62 BUN/Creatinine Ratio 16 Glucose Level 167 H 70-105 MG/DL Calcium Level 10.8 H 8.5-10.1 MG/DL Corrected Calcium 10.6 H 8.5-10.1 MG/DL Magnesium Level 2.5 H 1.6-2.4 MG/DL Total Bilirubin 1.2 H 0.1-1.0 MG/DL Aspartate Amino Transf (AST/SGOT) 15 5-34 U/L Alanine Aminotransferase (ALT/SGPT) 21 0-55 U/L Alkaline Phosphatase 71 40-136 U/L Myoglobin 48.2 10.0-92.0 NG/ML Troponin I < 0.028 < 0.028 <0.028 NG/ML B-Type Natriuretic Peptide 95.6 <100.0 PG/ML Total Protein 7.3 6.4-8.2 GM/DL Albumin 4.2 3.2-4.5 GM/DL Lipase 72 8-78 U/L My Orders Orders - EZEQUIEL BUI Continuous Ekg Monitoring (05/14/21 20:03) Ekg Tracing (05/14/21 20:03) Cbc With Automated Diff (05/14/21 20:16) Magnesium (05/14/21 20:16) Chest 1 View, Ap/Pa Only (05/14/21 20:16) Comprehensive Metabolic Panel (05/14/21 20:16) Myoglobin Serum (05/14/21 20:16) Protime With Inr (05/14/21 20:16) Partial Thromboplastin Time (05/14/21 20:16) O2 (05/14/21 20:16) Lipid Panel (05/15/21 06:00) Ed Iv/Invasive Line Start (05/14/21 20:16) Lipase (05/14/21 20:16) BNP (05/14/21 20:16) Troponin I (05/14/21 20:16) Aspirin Chewable Tablet (Baby Aspirin Ch (05/14/21 20:30) Lidocaine 2% Viscous 15 Ml (Xylocaine Vi (05/14/21 20:30) Antacid Suspension (Mylanta Suspension (05/14/21 20:30) Famotidine Injection (Pepcid Injection) (05/14/21 20:16) Manual Differential (05/14/21 20:10) Troponin I (05/14/21 22:10) Medications Given in ED Current Medications Medications Dose Ordered Sig/Dusty Route Start Time Stop Time Status Last Admin Dose Admin Al Hydrox/Mg Hydrox/Simethicone 30 ml ONCE ONCE PO 05/14/21 20:30 05/14/21 20:31 DC 05/14/21 20:27 30 ML Aspirin 324 mg ONCE ONCE PO 05/14/21 20:30 05/14/21 20:31 DC 05/14/21 20:27 324 MG Lidocaine HCl 15 ml ONCE ONCE PO 05/14/21 20:30 05/14/21 20:31 DC 05/14/21 20:27 15 ML Vital Signs/I&O 05/14/21 19:58 Temp 36.7 Pulse 86 Resp 16 B/P (MAP) 208/119 (148) Pulse Ox 93 O2 Delivery Room Air Blood Pressure Mean: 148 Progress Progress Note #1: Time: :23 Progress Note Patient does not have a history of coronary artery disease but she does have a strong history of GERD which preceded her symptoms I suspect she may have had some microaspiration's causing her asthma to act up as well as the pain in her chest. Just the same we will obtain a troponin and another delta troponin. We will review the case with cardiology. We will give her a GI cocktail. We did offer to give her a nitroglycerin given the high blood pressure on arrival 207/114. The patient declined nitroglycerin citing that it caused her that headaches. If her blood pressure does not come down with some observation then we will use labetalol as her heart rate is approaching 90. Progress Note #2: Time: 21:33 Progress Note The patient's symptoms have resolved. Her blood pressure is down to the 1 40-1 50 range systolic without further intervention. Patient states she takes ibuprofen on a daily basis after using Xopenex as she associates that with a headache. She is not on any acid reducers. We discussed repeating a delta troponin and if this is negative we will treat her outpatient for GERD have her follow-up with cardiology on an outpatient basis and her primary care doctor can set her up for endoscopy if necessary. We will put her on Carafate and pantoprazole. Initial ECG Impression Date: May 14, 2021 Initial ECG Impression Time: 20:03 Initial ECG Rate: 88 Initial ECG Rhythm: Normal Sinus Initial ECG Intervals: Normal Initial ECG Impression: Normal Initial ECG Comparisson: No Previous ECG Available Comment Normal sinus rhythm without clinically relevant ST changes. Diagnostic Imaging Diagonstic Imaging: Xray Plain Films/CT/US/NM/MRI: chest Comments [facility]. [place], [place] NAME: GE [facility] REC#: [id number] PT STATUS: REG ER : 1945 PHYSICIAN: EZEQUIEL BUI MD ADMIT DATE: 05/14/21/ER Draft Date of Exam:05/14/21 CHEST 1 VIEW, AP/PA ONLY HISTORY: Chest pain TECHNIQUE: Frontal view of the chest. COMPARISON: 12/12/2020 FINDINGS: Lung volumes are mildly large. There is blunting of the left costophrenic angle which is unchanged and may represent a small effusion or chronic scarring. There is no pneumothorax. The cardiac silhouette is normal in size. There is a chronic right rotator cuff injury. IMPRESSION: 1. No new consolidation. 2. Chronic scarring versus small effusion at the left lung base. Dictated on workstation # [id number] Dict: 05/14/212047 Trans: 05/14/212053 [facility] [id number] Interpreted by: OTTONIEL HERNÁNDEZ MD Electronically signed by: Reviewed: Reviewed by Me Departure Impression Primary Impression: GERD with esophagitis Qualified Codes: K21.00 - Gastro-esophageal reflux disease with esophagitis, without bleeding Disposition: HOME, SELF-CARE Condition: Stable Departure-Patient Inst. Decision time for Depature: 22:37 Referrals: ESTER ALLRED MD (PCP/Family) Primary Care Physician YAHIR ALARCON MD Patient Instructions: Acid Reflux and GERD in Adults (DC) Add. Discharge Instructions: Avoid spicy foods or foods with a lot of acid such as orange juice or tomato juice. Eat smaller meals and avoid close to bedtime. Pantoprazole 20 mg twice a day for the next 30 days. Carafate half an hour before meals and at bedtime for the next 2 weeks. Follow-up in 3 to 4 weeks with your primary care doctor to discuss appropriate management and possible EGD. 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 Alarcon to discuss your chest pain and if he agrees then obtain clearance in case you need to do an EGD. Stop taking NSAIDs such as ibuprofen, Motrin, Aleve, naproxen. Tylenol is okay. All discharge instructions reviewed with patient and/or family. Voiced understanding. Scripts Sucralfate (Carafate) 1 Gm Tablet 1 GM PO QIDACHS for 14 Days, #56 TAB 0 Refills Prov: EZEQUIEL BUI 05/14/21 Pantoprazole Sodium (Pantoprazole Sodium) 20 Mg Tablet.dr 20 MG PO BID for 30 Days, #60 TAB 0 Refills Prov: EZEQUIEL BUI 05/14/21 EZEQUIEL BUI May 14, 2021 20:22
[2021-05-14] MEDS ORDERED: ANTACID SUSP 30 ML UDC (MYLANTA) PO ONE (20:30)
[2021-05-14] MEDS ORDERED: ASPIRIN 81 MG CHEW (CHILDREN'S ASA) PO ONE (20:30)
[2021-05-14] MEDS ORDERED: LIDOCAINE 2% VISCOUS 15 ML UDC PO ONE (20:30)
[2021-05-14 20:33] LABS: INR 0.9 (0.8-1.4); PROTHROMBIN TIME PATIENT 12.9 SEC (12.2-14.7)
[2021-05-14 20:35] LABS: ALBUMIN 4.2 GM/DL (3.2-4.5); BILIRUBIN,TOTAL 1.2 MG/DL (0.1-1.0); CALCIUM 10.8 MG/DL (8.5-10.1); CREATININE SERUM 0.89 MG/DL (0.60-1.30); MAGNESIUM 2.5 MG/DL (1.6-2.4); TOTAL PROTEIN 7.3 GM/DL (6.4-8.2)
--- NOTE | 2021-05-14 20:54 | Diagnostic Imaging Report ---
HISTORY: Chest pain TECHNIQUE: Frontal view of the chest. COMPARISON: 12/12/2020 FINDINGS: Lung volumes are mildly large. There is blunting of the left costophrenic angle which is unchanged and may represent a small effusion or chronic scarring. There is no pneumothorax. The cardiac silhouette is normal in size. There is a chronic right rotator cuff injury. IMPRESSION: 1. No new consolidation. 2. Chronic scarring versus small effusion at the left lung base. Dictated by: Dictated on workstation # [id number]
[2021-05-14 20:58] LABS: EOSINOPHILS % (MANUAL) 1 %; LYMPHOCYTES % (MANUAL) 8 %; MONOCYTES % (MANUAL) 2 %; NEUTROPHILS % (MANUAL) 89 %; RBC MORPH NORMAL
[2021-05-14] MEDS ORDERED: SUCR1TAB36 PO (21:38)
[2021-05-14] MEDS ORDERED: PANT20TA18 PO (21:38)
[2021-05-14 22:39] VITALS: BP 154/74
== END 2021-05-14 22:43 | disposition home or self-care (01) ==
LOC: EDUNIT# 19:44 → ER 19:45
DX: K21.00 Gastro-esophageal reflux disease with esophagitis, without bleeding (principal); J44.9 Chronic obstructive pulmonary disease, unspecified; I10 Essential (primary) hypertension; F41.9 Anxiety disorder, unspecified; F17.290 Nicotine dependence, other tobacco product, uncomplicated; Z79.899 Other long term (current) drug therapy
CPT/HCPCS: 36415; 71045; 80053; 83690; 83735; 83874; 83880; 84484; 85007; 85025; 85027; 85610; 85730; 93005; 96374

== ENCOUNTER 2021-12-10 19:38 | Emergency (ER) | payer OTHER ==
[~2021-12-10] VITALS: Ht 162.6 cm; Wt 63.5 kg
[~2021-12-10 19:38] MED LIST changes: +PANT20TA18 PO; +SUCR1TAB36 PO
--- NOTE | 2021-12-10 19:53 | ED Respiratory ---
General Chief Complaint: Respiratory Problems Stated Complaint: SOB Source: patient Exam Limitations: no limitations History of Present Illness Date Seen by Provider: Dec 10, 2021 Time Seen by Provider: 19:51 Initial Comments To ER by EMS from home. She began feeling poorly on Friday took a negative Covid swab. She then had another negative home Covid swab today. She is supposed to take metoprolol 3 times a day but forgot to do that today. No fevers. Timing/Duration: constant Severity: moderate Prior Episodes/Possible Cause: no prior episodes Associated Symptoms: cough, shortness of breath, wheezing Allergies and Home Medications Allergies Coded Allergies: codeine (Verified Allergy, Unknown, 03/23/08) gatifloxacin (Verified Allergy, Unknown, 03/23/08) nitrofurantoin (Verified Allergy, Unknown, 03/23/08) Patient Home Medication List Home Medication List Reviewed: Yes Albuterol Sulfate (Rx-Proair) 8 Gm Hfa.aer.ad, 2 PUFF IH QID PRN for SHORTNESS OF BREATH, (Reported) Entered as Reported by: CAMACHO ALEXANDRA on 10/17/14 0030 Cefuroxime Axetil (Cefuroxime) 250 Mg Tablet, 250 MG PO BID Prescribed by: RYAN PARDO on 12/10/21 210 Diltiazem HCl (Cardizem Cd) 120 Mg Cap.er.24h, 120 MG PO DAILY Prescribed by: RYAN PARDO on 06/22/18 1858 Hydrocodone Bit/Acetaminophen (Hydrocodone-Apap 10-325 Tablet) 1 Each Tablet, 1 TAB PO Q6H PRN for PAIN, (Reported) Entered as Reported by: RUBEN COOPER on 05/20/13 0827 Ibuprofen (Advil) 200 Mg Tablet, 600 MG PO BID PRN for PAIN, (Reported) Entered as Reported by: RUBEN COOPER on 10/17/14 1055 Ipratropium [place] (Ipratropium [place]) 0.2 Mg/1 Ml Solution, 0.5 MG IH Q6H PRN for SHORTNESS OF BREATH Prescribed by: MONTSERRAT SANTOS on 08/19/17 0919 Lactobacillus Combo No.11 (Probiotic) 1 Each Cap.sprink, 1 EACH PO BID Prescribed by: ARSLAN COHEN on 12/13/17 0918 Levalbuterol Hcl (Xopenex 1.25 Mg) 1.25 Mg/0.5 Ml Vial.neb, 1.25 MG IH Q4H PRN for SHORTNESS OF BREATH, (Reported) Entered as Reported by: RUBEN COOPER on 05/20/13 0831 Lorazepam (Ativan) 1 Mg Tab, 1 MG PO TID PRN for ANXIETY, (Reported) Entered as Reported by: RUBEN COOPER on 05/20/13 0815 Metoprolol Tartrate (Metoprolol Tartrate) 50 Mg Tablet, 50 MG PO TID, (Reported) Entered as Reported by: RUBEN COOPER on 10/17/14 1055 Pantoprazole Sodium (Pantoprazole Sodium) 20 Mg Tablet.dr, 20 MG PO BID Prescribed by: EZEQUIEL BUI on 05/14/212137 Prednisone (Prednisone) 20 Mg Tab, 40 MG PO DAILY Prescribed by: RYAN PARDO on 12/10/212106 Sucralfate (Carafate) 1 Gm Tablet, 1 GM PO QIDACHS Prescribed by: EZEQUIEL BUI on 05/14/212137 Review of Systems Review of Systems Constitutional: see HPI EENTM: see HPI Respiratory: see HPI, cough Cardiovascular: no symptoms reported Genitourinary: no symptoms reported Musculoskeletal: no symptoms reported Skin: no symptoms reported Psychiatric/Neurological: No Symptoms Reported Hematologic/Lymphatic: No Symptoms Reported Past Vzgjvof-Lccrgn-Qvdnjq Hx Immunizations Up To Date Tetanus Booster (TDap): Unknown PED Vaccines UTD: Yes Seasonal Allergies Seasonal Allergies: Yes Past Medical History Surgeries: Yes Appendectomy Respiratory: Yes Asthma, COPD Currently Using CPAP: No Currently Using BIPAP: No Cardiac: Yes (SVT) 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, Irregular Heartbeat Neurological: No Reproductive Disorders: No Female Reproductive Disorders: Denies 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 Sexually Transmitted Disease: No Genitourinary: No Gastrointestinal: Yes Gastroesophageal Reflux Musculoskeletal: Yes (RIGHT HUMERUS FRACTURE, R FOOT) Arthritis, Fractures Endocrine: No HEENT: No Cancer: No Psychosocial: Yes Anxiety, Depression Integumentary: No Blood Disorders: No Family Medical History Dementia 19 MOTHER, , Age:88, Onset:60 years & older FH: CAD (coronary artery disease) 19 FATHER, , Age:64, Onset:60 years & older FH: CHF (congestive heart failure) 19 MOTHER, , Age:88, Onset:60 years & older Myocardial infarction 19 MOTHER, , Age:88, Onset:50's - 60 No Family History of: AIDS Abdominal aortic aneurysm Saqib's disease Alcoholism Alzheimer's disease Aphasia Arthritis Asthma Cancer of mouth Cardiovascular disease Cataracts Colon cancer Completed stroke Congenital disease Congenital heart disease Coronary thrombosis Cystic fibrosis Deafness or hearing loss Diabetes mellitus Drug abuse Dysphasia Fibrocystic disease of breast Gastroenteritis Glaucoma Headache disorder Hypercholesterolemia 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 Infertility Kidney disease Neoplasm Not obtainable due to adoption Osteoporosis Parkinson's disease Prostate cancer Psychosocial problem Respiratory disorder Seizure disorder Severe allergy Thyroid disease Tuberculosis Visual disorder Heart Disease, Diabetes, 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 Physical Exam Vital Signs - First Documented 12/10/21 12/10/21 19:42 21:04 Temp 36.7 Pulse 129 Resp 26 B/P (MAP) 209/111 (143) Pulse Ox 94 O2 Delivery Nasal Cannula O2 Flow Rate 2.00 Capillary Refill : Height: 5'3.00" Weight: 140lbs. 0.0oz. 63.177722am; 24.00 BMI Method:Stated General Appearance: WD/WN, no apparent distress, other (Alert and oriented speaks in full sentences) Eyes: Bilateral Eye Normal Inspection, Bilateral Eye PERRL, Bilateral Eye EOMI HEENT: PERRL/EOMI, normal ENT inspection Neck: non-tender, full range of motion Respiratory: no respiratory distress, crackles, wheezing Cardiovascular: no murmur, tachycardia Gastrointestinal: normal bowel sounds, non tender, soft Neurologic/Psychiatric: alert, normal mood/affect, oriented x 3 Skin: normal color, warm/dry Progress/Results/Core Measures Suspected Sepsis SIRS Temperature: Pulse: Respiratory Rate: Laboratory Tests 12/10/21 19:51: White Blood Count 16.8H Blood Pressure / Mean: Laboratory Tests 12/10/21 19:51: Creatinine 0.82, Platelet Count 333, Total Bilirubin 1.8H Results/Orders Lab Results Laboratory Tests Test 12/10/21 19:51 12/10/21 20:04 Range/Units White Blood Count 16.8 H 4.3-11.0 10^3/uL Red Blood Count 5.61 H 3.80-5.11 10^6/uL Hemoglobin 17.9 H 11.5-16.0 g/dL Hematocrit 53 H 35-52 % Mean Corpuscular Volume 95 80-99 fL Mean Corpuscular Hemoglobin 32 25-34 pg Mean Corpuscular Hemoglobin Concent 34 32-36 g/dL Red Cell Distribution Width 15.0 H 10.0-14.5 % Platelet Count 333 130-400 10^3/uL Mean Platelet Volume 9.5 9.0-12.2 fL Immature Granulocyte % (Auto) 1 % Neutrophils (%) (Auto) 75 42-75 % Lymphocytes (%) (Auto) 11 L 12-44 % Monocytes (%) (Auto) 10 0-12 % Eosinophils (%) (Auto) 3 0-10 % Basophils (%) (Auto) 1 0-10 % Neutrophils # (Auto) 12.6 H 1.8-7.8 10^3/uL Lymphocytes # (Auto) 1.8 1.0-4.0 10^3/uL Monocytes # (Auto) 1.6 H 0.0-1.0 10^3/uL Eosinophils # (Auto) 0.6 H 0.0-0.3 10^3/uL Basophils # (Auto) 0.1 0.0-0.1 10^3/uL Immature Granulocyte # (Auto) 0.2 H 0.0-0.1 10^3/uL Neutrophils % (Manual) 72 % Lymphocytes % (Manual) 14 % Monocytes % (Manual) 11 % Eosinophils % (Manual) 3 % Blood Morphology Comment NORMAL Sodium Level 140 135-145 MMOL/L Potassium Level 3.9 3.6-5.0 MMOL/L Chloride Level 100 98-107 MMOL/L Carbon Dioxide Level 24 21-32 MMOL/L Anion Gap 16 H 5-14 MMOL/L Blood Urea Nitrogen 13 7-18 MG/DL Creatinine 0.82 0.60-1.30 MG/DL Estimat Glomerular Filtration Rate 74 BUN/Creatinine Ratio 16 Glucose Level 130 H 70-105 MG/DL Calcium Level 9.9 8.5-10.1 MG/DL Corrected Calcium 9.8 8.5-10.1 MG/DL Total Bilirubin 1.8 H 0.1-1.0 MG/DL Aspartate Amino Transf (AST/SGOT) 21 5-34 U/L Alanine Aminotransferase (ALT/SGPT) 22 0-55 U/L Alkaline Phosphatase 65 40-136 U/L B-Type Natriuretic Peptide 59.6 <100.0 PG/ML Total Protein 7.1 6.4-8.2 GM/DL Albumin 4.1 3.2-4.5 GM/DL Procalcitonin 0.11 H <0.10 NG/ML Influenza Type A (RT-PCR) Not Detected Not Detecte Influenza Type B (RT-PCR) Not Detected Not Detecte My Orders Orders - RYAN PARDO APRN Levalbuterol (Non-Formulary) (Xopenex (N (12/10/21 20:00) Cbc With Automated Diff (12/10/21 19:49) Comprehensive Metabolic Panel (12/10/21 19:49) Bnp Stephanie (12/10/21 19:49) Chest 1 View, Ap/Pa Only (12/10/21 19:49) Ed Iv/Invasive Line Start (12/10/21 19:49) Procalcitonin (Pct) (12/10/21 19:49) Metoprolol Tartrate Injection (Lopressor (12/10/21 20:00) Metoprolol Tartrate Injection (Lopressor (12/10/21 20:00) Manual Differential (12/10/21 19:51) Influenza A And B By Pcr (12/10/21 20:02) Acetaminophen Tablet/Caplet (Tylenol T (12/10/21 20:15) Lactated Ringers (Lr 1000 Ml Iv Solution (12/10/21 21:00) Methylprednisolone Sod Succ (Solu-Medrol (12/10/21 21:15) Cephalexin Capsule (Keflex Capsule) (12/10/21 21:15) Metoprolol Tartrate (Ir) Tab (Lopressor (12/10/21 21:15) Medications Given in ED Current Medications Medications Dose Ordered Sig/Dusty Route Start Time Stop Time Status Last Admin Dose Admin Acetaminophen 650 mg ONCE ONCE PO 12/10/21 20:15 12/10/21 20:16 DC 12/10/21 20:54 650 MG Methylprednisolone Sodium Succinate 80 mg ONCE ONCE IV 12/10/21 21:15 12/10/21 21:16 DC 12/10/21 21:36 80 MG Metoprolol Tartrate 5 mg ONCE ONCE IV 12/10/21 20:00 12/10/21 20:01 DC 12/10/21 20:03 5 MG Metoprolol Tartrate 5 mg ONCE ONCE IV 12/10/21 20:00 12/10/21 20:01 DC 12/10/21 20:54 5 MG Metoprolol Tartrate 50 mg ONCE ONCE PO 12/10/21 21:15 12/10/21 21:16 DC 12/10/21 21:36 50 MG Vital Signs/I&O 12/10/21 12/10/21 19:42 21:04 Temp 36.7 Pulse 129 Resp 26 B/P (MAP) 209/111 (143) Pulse Ox 94 94 O2 Delivery Nasal Cannula O2 Flow Rate 2.00 Capillary Refill : Departure Communication (Admissions) NAME: GE [facility] REC#: [id number] PT STATUS: REG ER : 1945 PHYSICIAN: RYAN PARDO APRN ADMIT DATE: 12/10/21/ER Draft Date of Exam:12/10/21 CHEST 1 VIEW, AP/PA ONLY EXAMINATION: Chest 1 view HISTORY: Weakness COMPARISON: 05/14/2021 FINDINGS: The lungs are clear without edema or pneumonia. No pleural effusion or pneumothorax. Heart size is normal. There is unchanged scarring in the left costophrenic angle. IMPRESSION: 1. Clear lungs. Dictated on workstation # [id number] Dict: 12/10/212002 Trans: 12/10/212005 [facility] [id number] Interpreted by: TORITO CHRISTIAN MD Electronically signed by: Impression Primary Impression: Chronic obstructive lung disease Disposition: HOME, SELF-CARE Condition: Stable Departure-Patient Inst. Decision time for Depature: 21:06 Referrals: ESTER ALLRED MD (PCP/Family) Primary Care Physician Patient Instructions: Cough, Adult (DC) Add. Discharge Instructions: 1. Steroids as directed. Return to ER for any concerns. Follow-up with your doctor next week. All discharge instructions reviewed with patient and/or family. Voiced understanding. Scripts Cefuroxime Axetil (Cefuroxime) 250 Mg Tablet 250 MG PO BID, #10 TAB Prov: RYAN PARDO APRN 12/10/21 Prednisone (Prednisone) 20 Mg Tab 40 MG PO DAILY, #6 TAB 0 Refills Prov: RYAN PARDO APRN 12/10/21 RYAN PARDO APRN Dec 10, 2021 19:52
[2021-12-10 19:57] LABS: BASOPHILS # (AUTO) 0.1 10^3/uL (0.0-0.1); BASOPHILS % (AUTO) 1 % (0-10); EOSINOPHILS # (AUTO) 0.6 10^3/uL (0.0-0.3); EOSINOPHILS % (AUTO) 3 % (0-10); HEMATOCRIT 53 % (35-52); HEMOGLOBIN 17.9 g/dL (11.5-16.0); LYMPHOCYTES # (AUTO) 1.8 10^3/uL (1.0-4.0); LYMPHOCYTES % (AUTO) 11 % (12-44); MEAN CORPUSCULAR HEMOGLOBIN 32 pg (25-34); MEAN CORPUSCULAR HGB CONC 34 g/dL (32-36); MEAN CORPUSCULAR VOLUME 95 fL (80-99); MEAN PLATELET VOLUME 9.5 fL (9.0-12.2); MONOCYTES # (AUTO) 1.6 10^3/uL (0.0-1.0); MONOCYTES % (AUTO) 10 % (0-12); NEUTROPHILS # (AUTO) 12.6 10^3/uL (1.8-7.8); NEUTROPHILS % (AUTO) 75 % (42-75); PLATELET COUNT 333 10^3/uL (130-400); WHITE BLOOD COUNT 16.8 10^3/uL (4.3-11.0)
[2021-12-10] MEDS ORDERED: meTOprolol 5 MG/5 ML (LOPRESSOR) VIAL IV ONE ×2 (20:00)
--- NOTE | 2021-12-10 20:06 | Diagnostic Imaging Report ---
EXAMINATION: Chest 1 view HISTORY: Weakness COMPARISON: 05/14/2021 FINDINGS: The lungs are clear without edema or pneumonia. No pleural effusion or pneumothorax. Heart size is normal. There is unchanged scarring in the left costophrenic angle. IMPRESSION: 1. Clear lungs. Dictated by: Dictated on workstation # [id number]
[2021-12-10 20:13] LABS: EOSINOPHILS % (MANUAL) 3 %; LYMPHOCYTES % (MANUAL) 14 %; MONOCYTES % (MANUAL) 11 %; NEUTROPHILS % (MANUAL) 72 %; RBC MORPH NORMAL
[2021-12-10] MEDS ORDERED: ACETAMINOPHEN 325 MG TABLET PO ONE (20:15)
[2021-12-10 20:22] LABS: ALBUMIN 4.1 GM/DL (3.2-4.5); BILIRUBIN,TOTAL 1.8 MG/DL (0.1-1.0); CALCIUM 9.9 MG/DL (8.5-10.1); CREATININE SERUM 0.82 MG/DL (0.60-1.30); POTASSIUM 3.9 MMOL/L (3.6-5.0); TOTAL PROTEIN 7.1 GM/DL (6.4-8.2)
[2021-12-10] MEDS ORDERED: LACTATED RINGERS 1,000 ML IV SCH (21:00)
[2021-12-10] MEDS: RT-LEVALBUTEROL (XOPENEX) 1.25 MG/3 ML NEB NON-FORMULARY INH SCH (21:03)
[2021-12-10] MEDS ORDERED: PRD20T PO (21:07)
[2021-12-10] MEDS ORDERED: CEFU250T80 PO (21:07)
[2021-12-10] MEDS ORDERED: methylPREDNISolone 40 MG/ML (Solu-MEDROL) VIAL IV ONE (21:15)
[2021-12-10] MEDS ORDERED: meTOprolol TARTRATE 50 MG (LOPRESSOR) TAB PO ONE (21:15)
[2021-12-10] MEDS ORDERED: CEPHALEXIN 250 MG (KEFLEX) CAP PO SCH (21:15)
[2021-12-10 22:05] VITALS: BP 154/86
== END 2021-12-10 22:05 | disposition home or self-care (01) ==
LOC: EDUNIT# 19:38 → ER 19:40
DX: J44.9 Chronic obstructive pulmonary disease, unspecified (principal); Z20.822 Contact with and (suspected) exposure to COVID-19
CPT/HCPCS: 36415; 71045; 80053; 83880; 84145; 85007; 85027; 93005; 94640; 96374; 96375; 96376

== ENCOUNTER 2022-02-28 20:28 | Inpatient (IN) | payer MEDICARE, OTHER ==
[~2022-02-28] VITALS: Ht 162.6 cm; Wt 65.4 kg
[~2022-02-28 20:28] MED LIST changes: +CEFU250T80 PO
[2022-02-28] MEDS ORDERED: ONDANSETRON 4 MG/2 ML (SDV) Z0FRAN IVP ONE (20:45)
[2022-02-28 20:56] LABS: BASOPHILS # (AUTO) 0.1 10^3/uL (0.0-0.1); BASOPHILS % (AUTO) 0 % (0-10); EOSINOPHILS % (AUTO) 0 % (0-10); HEMATOCRIT 51 % (35-52); HEMOGLOBIN 16.6 g/dL (11.5-16.0); LYMPHOCYTES # (AUTO) 2.2 10^3/uL (1.0-4.0); LYMPHOCYTES % (AUTO) 14 % (12-44); MEAN CORPUSCULAR HEMOGLOBIN 32 pg (25-34); MEAN CORPUSCULAR HGB CONC 33 g/dL (32-36); MEAN CORPUSCULAR VOLUME 96 fL (80-99); MEAN PLATELET VOLUME 10.8 fL (9.0-12.2); MONOCYTES # (AUTO) 0.3 10^3/uL (0.0-1.0); MONOCYTES % (AUTO) 2 % (0-12); NEUTROPHILS # (AUTO) 12.5 10^3/uL (1.8-7.8); NEUTROPHILS % (AUTO) 81 % (42-75); PLATELET COUNT 356 10^3/uL (130-400); WHITE BLOOD COUNT 15.4 10^3/uL (4.3-11.0)
[2022-02-28] MEDS ORDERED: LABETALOL HCL 20 MG/4 ML VIAL IV ONE (21:00)
--- NOTE | 2022-02-28 21:18 | Diagnostic Imaging Report ---
PROCEDURE: CT head without contrast. TECHNIQUE: Multiple contiguous axial images were obtained through the brain without the use of intravenous contrast. Auto Exposure Controls were utilized during the CT exam to meet ALARA standards for radiation dose reduction. INDICATION: 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 and dizziness. FINDINGS: There is decreased density in the paraventricular white matter in both hemispheres. There is right basal ganglia calcification. There are no masses or hemorrhages. There are no extra-axial fluid collections. There is fluid and membrane thickening in both maxillary sinuses and some ethmoid air cells. IMPRESSION: Maxillary and ethmoid sinusitis. Chronic ischemic leukoencephalopathy. No acute intracranial abnormality is seen. Dictated by: Dictated on workstation # [id number]
[2022-02-28 21:23] LABS: LYMPHOCYTES % (MANUAL) 18 %; MONOCYTES % (MANUAL) 3 %; NEUTROPHILS % (MANUAL) 79 %; RBC MORPH NORMAL
[2022-02-28] MEDS ORDERED: PROMETHAZINE INJ 25 MG/ML (PHENERGAN) AMP IVP ONE (21:30)
[2022-02-28 21:50] LABS: BILIRUBIN,TOTAL 0.7 MG/DL (0.1-1.0); CREATININE SERUM 0.9 MG/DL (0.60-1.30); MAGNESIUM 2.2 MG/DL (1.6-2.4); TOTAL PROTEIN 7.7 GM/DL (6.4-8.2)
[2022-02-28 21:52] LABS: ALBUMIN 4.1 GM/DL (3.2-4.5); CALCIUM 9.2 MG/DL (8.5-10.1)
[2022-02-28 22:02] LABS: POTASSIUM 5.1 MMOL/L (3.6-5.0)
--- NOTE | 2022-02-28 22:13 | Diagnostic Imaging Report ---
INDICATION: Vomiting and leukocytosis. EXAMINATION: Portable chest at 9:51 PM. Heart size and pulmonary vascularity are normal. Lungs are clear. There are no effusions or pneumothoraces. IMPRESSION: No acute abnormalities in the chest. Dictated by: Dictated on workstation # [id number]
[2022-02-28] MEDS ORDERED: cefTRIAXone 1 GM PRE-MIX 50 ML IV STA (23:52)
--- NOTE | 2022-03-01 | ED General ---
General Chief Complaint: Cardiac/General Problems Stated Complaint: DIZZY, NAUSEA Nursing Triage Note: brought in by [facility] for dizziness, nausea, htn x30min Source of Information: Patient Exam Limitations: No Limitations History of Present Illness Date Seen by Provider: Feb 28, 2022 Time Seen by Provider: 20:34 Initial Comments This is 76-year-old woman presents to the emergency room via EMS with development of nausea, vomiting, and dizziness at home this evening. She is noted to be rather hypertensive with EMS reporting a blood pressure of 233/110. With Zofran was administered by EMS but she is still nauseous. She describes her dizziness as a vague wooziness but not necessarily lightheadedness or vertigo. She does have some difficulty walking because of it. She has clonidine that she can take as needed at home for exacerbations of hypertension. She has not taken any tonight. She denies feeling anxious. Allergies and Home Medications Allergies Coded Allergies: codeine (Verified Allergy, Unknown, 03/23/08) gatifloxacin (Verified Allergy, Unknown, 03/23/08) nitrofurantoin (Verified Allergy, Unknown, 03/23/08) Patient Home Medication List Home Medication List Reviewed: Yes Albuterol Sulfate (Rx-Proair) 8 Gm Hfa.aer.ad, 2 PUFF IH QID PRN for SHORTNESS OF BREATH, (Reported) Entered as Reported by: CAMACHO ALEXANDRA on 10/17/14 0030 Cefuroxime Axetil (Cefuroxime) 250 Mg Tablet, 250 MG PO BID Prescribed by: RYAN PARDO on 12/10/21 210 Diltiazem HCl (Cardizem Cd) 120 Mg Cap.er.24h, 120 MG PO DAILY Prescribed by: RYAN PARDO on 06/22/18 1858 Hydrocodone Bit/Acetaminophen (Hydrocodone-Apap 10-325 Tablet) 1 Each Tablet, 1 TAB PO Q6H PRN for PAIN, (Reported) Entered as Reported by: RUBEN COOPER on 05/20/13 0827 Ibuprofen (Advil) 200 Mg Tablet, 600 MG PO BID PRN for PAIN, (Reported) Entered as Reported by: RUBEN COOPER on 10/17/14 1055 Ipratropium Fallon (Ipratropium Fallon) 0.2 Mg/1 Ml Solution, 0.5 MG IH Q6H PRN for SHORTNESS OF BREATH Prescribed by: MONTSERRAT SANTOS on 08/19/17 0919 Lactobacillus Combo No.11 (Probiotic) 1 Each Cap.sprink, 1 EACH PO BID Prescribed by: ARSLAN COHEN on 12/13/17 0918 Levalbuterol Hcl (Xopenex 1.25 Mg) 1.25 Mg/0.5 Ml Vial.neb, 1.25 MG IH Q4H PRN for SHORTNESS OF BREATH, (Reported) Entered as Reported by: RUBEN COOPER on 05/20/13 0831 Lorazepam (Ativan) 1 Mg Tab, 1 MG PO TID PRN for ANXIETY, (Reported) Entered as Reported by: RUBEN COOPER on 05/20/13 0815 Metoprolol Tartrate (Metoprolol Tartrate) 50 Mg Tablet, 50 MG PO TID, (Reported) Entered as Reported by: RUBEN COOPER on 10/17/14 1055 Pantoprazole Sodium (Pantoprazole Sodium) 20 Mg Tablet.dr, 20 MG PO BID Prescribed by: EZEQUIEL BUI on 05/14/212137 Prednisone (Prednisone) 20 Mg Tab, 40 MG PO DAILY Prescribed by: RYAN PARDO on 12/10/212106 Sucralfate (Carafate) 1 Gm Tablet, 1 GM PO QIDACHS Prescribed by: EZEQUIEL BUI on 05/14/212137 Review of Systems Review of Systems Constitutional: no symptoms reported EENTM: no symptoms reported Respiratory: no symptoms reported Cardiovascular: see HPI Gastrointestinal: see HPI Genitourinary: no symptoms reported : No Musculoskeletal: no symptoms reported Skin: no symptoms reported Psychiatric/Neurological: See HPI Hematologic/Lymphatic: No Symptoms Reported Immunological/Allergic: no symptoms reported Past Qdzdmdu-Nfroww-Uvtzav Hx Patient Social History Tobacco Use?: No Substance use?: No Alcohol Use?: No Pt feels they are or have been: No Immunizations Up To Date Tetanus Booster (TDap): Unknown PED Vaccines UTD: Yes Seasonal Allergies Seasonal Allergies: Yes Past Medical History Surgery/Hospitalization HX: appy, copd, asthma, htn, svt, gerd, anx/dep Surgeries: Yes Appendectomy Respiratory: Yes Asthma, COPD Currently Using CPAP: No Currently Using BIPAP: No Cardiac: Yes (SVT) 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, Irregular Heartbeat Neurological: No Reproductive Disorders: No Female Reproductive Disorders: Denies 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: 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 Sexually Transmitted Disease: No Genitourinary: No Gastrointestinal: Yes Gastroesophageal Reflux Musculoskeletal: Yes (RIGHT HUMERUS FRACTURE, R FOOT) Arthritis, Fractures Endocrine: No HEENT: No Cancer: No Psychosocial: Yes Anxiety, Depression Integumentary: No Blood Disorders: No Family Medical History Dementia 19 MOTHER, , Age:88, Onset:60 years & older FH: CAD (coronary artery disease) 19 FATHER, , Age:64, Onset:60 years & older FH: CHF (congestive heart failure) 19 MOTHER, , Age:88, Onset:60 years & older Myocardial infarction 19 MOTHER, , Age:88, Onset:50's - 60 No Family History of: AIDS Abdominal aortic aneurysm Franklin's disease Alcoholism Alzheimer's disease Aphasia Arthritis Asthma Cancer of mouth Cardiovascular disease Cataracts Colon cancer Completed stroke Congenital disease Congenital heart disease Coronary thrombosis Cystic fibrosis Deafness or hearing loss Diabetes mellitus Drug abuse Dysphasia Fibrocystic disease of breast Gastroenteritis Glaucoma Headache disorder Hypercholesterolemia 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 Infertility Kidney disease Neoplasm Not obtainable due to adoption Osteoporosis Parkinson's disease Prostate cancer Psychosocial problem Respiratory disorder Seizure disorder Severe allergy Thyroid disease Tuberculosis Visual disorder Heart Disease, Diabetes, 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 Physical Exam Vital Signs Vital Signs - First Documented 02/28/22 20:39 Temp 36.7 Pulse 75 Resp 18 B/P (MAP) 188/106 (133) Pulse Ox 92 O2 Delivery Room Air Capillary Refill : Less Than 3 Seconds Height, Weight, BMI Height: 5'3.00" Weight: 140lbs. 0.0oz. 63.737812dq; 24.00 BMI Method:Stated General Appearance: No Apparent Distress, WD/WN HEENT: PERRL/EOMI, TMs Normal, Normal ENT Inspection Neck: Normal Inspection; No JVD Respiratory: Lungs Clear, Normal Breath Sounds, No Accessory Muscle Use Cardiovascular: Regular Rate, Rhythm, No Edema, No Murmur Gastrointestinal: Normal Bowel Sounds, Soft Extremity: Normal Inspection, Non Tender, No Pedal Edema Neurologic/Psychiatric: Alert, Oriented x3, No Motor/Sensory Deficits, Normal Mood/Affect, type bar and segment assembler II-XII Norm as Tested Skin: Normal Color, Warm/Dry Progress/Results/Core Measures Suspected Sepsis SIRS Temperature: Pulse: 75 Respiratory Rate: 18 Laboratory Tests 02/28/22 20:44: White Blood Count 15.4H Blood Pressure 188 /106 Mean: 133 Laboratory Tests 02/28/22 20:44: Creatinine 0.90, Platelet Count 356, Total Bilirubin 0.7 Results/Orders Lab Results Laboratory Tests Test 02/28/22 20:44 Range/Units White Blood Count 15.4 H 4.3-11.0 10^3/uL Red Blood Count 5.27 H 3.80-5.11 10^6/uL Hemoglobin 16.6 H 11.5-16.0 g/dL Hematocrit 51 35-52 % Mean Corpuscular Volume 96 80-99 fL Mean Corpuscular Hemoglobin 32 25-34 pg Mean Corpuscular Hemoglobin Concent 33 32-36 g/dL Red Cell Distribution Width 14.7 H 10.0-14.5 % Platelet Count 356 130-400 10^3/uL Mean Platelet Volume 10.8 9.0-12.2 fL Immature Granulocyte % (Auto) 2 % Neutrophils (%) (Auto) 81 H 42-75 % Lymphocytes (%) (Auto) 14 12-44 % Monocytes (%) (Auto) 2 0-12 % Eosinophils (%) (Auto) 0 0-10 % Basophils (%) (Auto) 0 0-10 % Neutrophils # (Auto) 12.5 H 1.8-7.8 10^3/uL Lymphocytes # (Auto) 2.2 1.0-4.0 10^3/uL Monocytes # (Auto) 0.3 0.0-1.0 10^3/uL Eosinophils # (Auto) 0.0 0.0-0.3 10^3/uL Basophils # (Auto) 0.1 0.0-0.1 10^3/uL Immature Granulocyte # (Auto) 0.3 H 0.0-0.1 10^3/uL Neutrophils % (Manual) 79 % Lymphocytes % (Manual) 18 % Monocytes % (Manual) 3 % Blood Morphology Comment NORMAL Sodium Level 139 135-145 MMOL/L Potassium Level 5.1 H 3.6-5.0 MMOL/L Chloride Level 105 98-107 MMOL/L Carbon Dioxide Level 22 21-32 MMOL/L Anion Gap 12 5-14 MMOL/L Blood Urea Nitrogen 20 H 7-18 MG/DL Creatinine 0.90 0.60-1.30 MG/DL Estimat Glomerular Filtration Rate 66 BUN/Creatinine Ratio 22 Glucose Level 221 H 70-105 MG/DL Calcium Level 9.2 8.5-10.1 MG/DL Corrected Calcium 9.1 8.5-10.1 MG/DL Magnesium Level 2.2 1.6-2.4 MG/DL Total Bilirubin 0.7 0.1-1.0 MG/DL Aspartate Amino Transf (AST/SGOT) 53 H 5-34 U/L Alanine Aminotransferase (ALT/SGPT) 22 0-55 U/L Alkaline Phosphatase 59 40-136 U/L C-Reactive Protein High Sensitivity 0.12 0.00-0.50 MG/DL B-Type Natriuretic Peptide 44.8 <100.0 PG/ML Total Protein 7.7 6.4-8.2 GM/DL Albumin 4.1 3.2-4.5 GM/DL My Orders Orders - MONTSERRAT JESSICA MD Ondansetron Injection (Zofran Injectio (02/28/22 20:45) Cbc With Automated Diff (02/28/22 20:38) Magnesium (02/28/22 20:38) Ekg Tracing (02/28/22 20:38) Comprehensive Metabolic Panel (02/28/22 20:38) Monitor-Rhythm Ecg Trace Only (02/28/22 20:38) Ed Iv/Invasive Line Start (02/28/22 20:38) Bnp Stephanie (02/28/22 20:38) Ct Head Wo (02/28/22 20:38) Labetalol Injection (Normodyne Injection (02/28/22 21:00) Manual Differential (02/28/22 20:44) Promethazine Injection (Phenergan Injec (02/28/22 21:30) Chest 1 View, Ap/Pa Only (02/28/22 21:34) Ua Culture If Indicated (02/28/22 21:45) Hs C Reactive Protein (02/28/22 20:44) Ceftriaxone 1 Gm Pre-Mix (Rocephin 1 Gm (02/28/22 23:52) Medications Given in ED Current Medications Medications Dose Ordered Sig/Dusty Route Start Time Stop Time Status Last Admin Dose Admin Labetalol HCl 10 mg ONCE ONCE IV 02/28/22 21:00 02/28/22 21:01 DC 02/28/22 21:07 10 MG Ondansetron HCl 4 mg ONCE ONCE IVP 02/28/22 20:45 02/28/22 20:46 DC 02/28/22 20:42 4 MG Promethazine HCl 25 mg ONCE ONCE IVP 02/28/22 21:30 02/28/22 21:31 DC 02/28/22 21:34 25 MG Vital Signs/I&O 02/28/22 20:39 Temp 36.7 Pulse 75 Resp 18 B/P (MAP) 188/106 (133) Pulse Ox 92 O2 Delivery Room Air 03/01/22 00:00 Intake Total 100 ml Balance 100 ml Capillary Refill : Less Than 3 Seconds Blood Pressure Mean: 133 Progress Note : Progress Note Patient was given an additional dose of Zofran but still had some refractory nausea and vomiting. She was then given Phenergan and a liter of normal saline. This resolved her nausea but she still felt dizzy. She requested admission because she was fearful of falls due to her dizziness. CODE STATUS was discussed and she requested full code. CT of the head was obtained to rule out intracranial hemorrhage given the significantly elevated blood pressure and vomiting. CT was unremarkable for intracranial hemorrhage. However, sinusitis was noted. This may very well be a contributing factor to her symptoms. Rocephin was given for treatment of sinusitis. Patient did comment that her leukocytosis is likely due to recently starting steroids for her COPD. ECG Initial ECG Impression Date: Feb 28, 2022 Initial ECG Impression Time: 20:41 Initial ECG Rate: 74 Initial ECG Rhythm: Normal Sinus Comment Sinus rhythm with no ST elevation or depression. No abnormal intervals. LVH by voltage. Diagnostic Imaging Diagonstic Imaging: CT Plain Films/CT/US/NM/MRI: head Comments CT head viewed by me and report reviewed. See report below: NAME: [facility] REC#: [id number] PT STATUS: REG ER : 1945 PHYSICIAN: MONTSERRAT JESSICA MD ADMIT DATE: 02/28/22/ER Signed Date of Exam:02/28/22 CT HEAD WO PROCEDURE: CT head without contrast. TECHNIQUE: Multiple contiguous axial images were obtained through the brain without the use of intravenous contrast. Auto Exposure Controls were utilized during the CT exam to meet ALARA standards for radiation dose reduction. INDICATION: 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 and dizziness. FINDINGS: There is decreased density in the paraventricular white matter in both hemispheres. There is right basal ganglia calcification. There are no masses or hemorrhages. There are no extra-axial fluid collections. There is fluid and membrane thickening in both maxillary sinuses and some ethmoid air cells. IMPRESSION: Maxillary and ethmoid sinusitis. Chronic ischemic leukoencephalopathy. No acute intracranial abnormality is seen. Dictated by: Dictated on workstation # [id number] Dict: 02/28/222110 Trans: 02/28/222148 [facility] [id number] Interpreted by: INDIRA FRANCIS MD Electronically signed by: INDIRA FRANCIS MD 02/28/222148 Diagonstic Imaging: Xray Plain Films/CT/US/NM/MRI: chest Comments NAME: [facility] REC#: [id number] PT STATUS: REG ER : 1945 PHYSICIAN: MONTSERRAT JESSICA MD ADMIT DATE: 02/28/22/ER Signed Date of Exam:02/28/22 CHEST 1 VIEW, AP/PA ONLY INDICATION: Vomiting and leukocytosis. EXAMINATION: Portable chest at 9:51 PM. Heart size and pulmonary vascularity are normal. Lungs are clear. There are no effusions or pneumothoraces. IMPRESSION: No acute abnormalities in the chest. Dictated by: Dictated on workstation # [id number] Dict: 02/28/222210 Trans: 02/28/222225 [facility] [id number] Interpreted by: INDIRA FRANCIS MD Electronically signed by: INDIRA FRANCIS MD 02/28/222225 Reviewed: Reviewed by Vt Departure Communication (Admissions) Time/Spoke to Admitting Phy: 23:50 Dr. Victoria Impression Primary Impression: Hypertensive urgency Additional Impressions: Nausea & vomiting Qualified Codes: R11.2 - Nausea with vomiting, unspecified Dizziness Sinusitis Qualified Codes: J32.9 - Chronic sinusitis, unspecified Disposition: ADMITTED INPATIENT Condition: Improved Admissions Decision to Admit Reason: Admit from ER (General) Decision to Admit/Date: Feb 28, 2022 Time/Decision to Admit Time: 23:50 Departure-Patient Inst. Referrals: ESTER ALLRED MD (PCP/Family) Primary Care Physician Copy Copies To 1: ESTER ALLRED MD, JOSHUA T MD Mar 01, 2022 00:00
[2022-03-01 00:30] VITALS: BP 155/72
[2022-03-01] MEDS ORDERED: ONDANSETRON 4 MG/2 ML (SDV) Z0FRAN IV PRN (00:45)
[2022-03-01] MEDS ORDERED: CATHETER FLUSH 10 ML SYR IVP PRN (00:45)
[2022-03-01] MEDS ORDERED: PROMETHAZINE INJ 25 MG/ML (PHENERGAN) AMP IVP PRN (00:45)
[2022-03-01] MEDS ORDERED: cloNIDine 0.1 MG (CATAPRES) TAB PO PRN (01:00)
[2022-03-01] MEDS ORDERED: RT-ALBUTEROL SULF 2.5 MG/3 ML PRE-MIX VIAL IH PRN (01:15)
[2022-03-01] MEDS: RT-ALBUTEROL HFA 8.5 GM INHALER IH PRN ×2 (01:45→06:06)
[2022-03-01 04:09] VITALS: BP 155/71
[2022-03-01] MEDS ORDERED: CATHETER FLUSH 10 ML SYR IVP SCH (06:00)
[2022-03-01 08:00] VITALS: BP 170/80
[2022-03-01] MEDS ORDERED: MAGNESIUM 1 GM/100 ML IVPB 100 ML IV SCH (08:00)
[2022-03-01] MEDS ORDERED: KCL 20 MEQ TAB (K-DUR) PO SCH (08:00)
[2022-03-01] MEDS ORDERED: AUGMENTIN 875 MG TAB (AMOXICILLIN/CLAVULANATE) PO SCH (08:15)
[2022-03-01 08:26] LABS: BASOPHILS % (AUTO) 0 % (0-10); EOSINOPHILS # (AUTO) 0.1 10^3/uL (0.0-0.3); EOSINOPHILS % (AUTO) 0 % (0-10); HEMATOCRIT 45 % (35-52); HEMOGLOBIN 14.9 g/dL (11.5-16.0); LYMPHOCYTES # (AUTO) 1.4 10^3/uL (1.0-4.0); LYMPHOCYTES % (AUTO) 8 % (12-44); MEAN CORPUSCULAR HEMOGLOBIN 32 pg (25-34); MEAN CORPUSCULAR HGB CONC 33 g/dL (32-36); MEAN CORPUSCULAR VOLUME 98 fL (80-99); MEAN PLATELET VOLUME 9.5 fL (9.0-12.2); MONOCYTES # (AUTO) 1.3 10^3/uL (0.0-1.0); MONOCYTES % (AUTO) 8 % (0-12); NEUTROPHILS % (AUTO) 83 % (42-75); PLATELET COUNT 293 10^3/uL (130-400)
[2022-03-01 08:40] LABS: CREATININE SERUM 0.74 MG/DL (0.60-1.30)
[2022-03-01 08:43] LABS: MAGNESIUM 2.1 MG/DL (1.6-2.4)
[2022-03-01 08:55] LABS: CREATININE SERUM 0.74 MG/DL (0.60-1.30)
[2022-03-01] MEDS ORDERED: PANTOPRAZOLE 40 MG (PROTONIX) VIAL IV SCH (09:00)
[2022-03-01] MEDS ORDERED: PANTOPRAZOLE 40 MG (PROTONIX) TAB PO SCH (09:00)
[2022-03-01] MEDS ORDERED: lisINopril 40 MG (PRINIVIL) TABLET PO SCH (09:00)
[2022-03-01] MEDS ORDERED: meTOprolol TARTRATE 50 MG (LOPRESSOR) TAB PO SCH (09:30)
[2022-03-01] MEDS ORDERED: IBUPROFEN TABLET 200 MG TAB PO PRN (09:30)
[2022-03-01] MEDS ORDERED: LORazepam 1 MG (ATIVAN) TAB PO NR (09:30)
[2022-03-01] MEDS ORDERED: SALIVA STIMULANT MOUTH SPRAY (BIOTENE) 1.5 OZ MM PRN (09:45)
[2022-03-01] MEDS ORDERED: CHOL10004 PO (11:54)
[2022-03-01] MEDS ORDERED: IBUP-2473 PO (11:54)
[2022-03-01] MEDS ORDERED: ASCO-262 PO (11:54)
[2022-03-01] MEDS ORDERED: LORA-405 PO (11:54)
[2022-03-01] MEDS ORDERED: CLN.1T PO ×2 (11:54→12:05)
[2022-03-01] MEDS ORDERED: RT-ALBUINH INH (11:54)
[2022-03-01] MEDS ORDERED: LEVA1.2543 IH (11:54)
[2022-03-01] MEDS ORDERED: METO50TA15 PO (11:54)
[2022-03-01] MEDS ORDERED: AMOX500C2 PO (12:05)
--- NOTE | 2022-03-01 12:08 | Discharge Summary ---
Discharge Summary Hospital Course Problems/Dx: (1) Hypertensive urgency Status: Acute (2) Sinusitis Status: Acute Qualifiers: Qualified Codes: J32.9 - Chronic sinusitis, unspecified Hospital Course Date of Admission: Feb 28, 2022 at 23:59 Admission Diagnosis : Hypertensive urgency, sinusitis Family Physician/Provider: Ester Allred MD Date of Discharge: 03/01/22 Discharge Diagnosis: Hypertensive urgency, sinusitis Hospital Course: Cathleen Kay is a 70 year old female who presented with dizziness and vomiting and was admitted with hypertensive urgency. She underwent a CT which revealed no acute intracranial abnormality, but did show sinusitis. She was started on IV Ro cephin and then transitioned to oral Amoxicillin. She was significantly hypertensive upon arrival. Her initial blood pressure was >230/100. She was given Labetalol and Clonidine and her blood pressures improved. Her symptoms resolved. She was restarted on her home meds. She was given a prescription for Clonidine to take as needed for elevated blood pressures. She will follow up aba Allred in about a week and may need some of her blood pressure medications adjusted if her hypertension persists. Her blood pressure improved prior to discharge. She has been taking steroids which could be contributing to her hypertension. She is currently tapering them. She has also been taking Ibuprofen which could also be contributing to her blood pressure elevation. She was encouraged to avoid Ibuprofen and instead use Tylenol. She was discharged home in improved condition. Labs and Pending Lab Test: Laboratory Tests 02/28/22 20:44: White Blood Count 15.4H, Red Blood Count 5.27H, Hemoglobin 16.6H, Hematocrit 51, Mean Corpuscular Volume 96, Mean Corpuscular Hemoglobin 32, Mean Corpuscular Hemoglobin Concent 33, Red Cell Distribution Width 14.7H, Platelet Count 356, Mean Platelet Volume 10.8, Immature Granulocyte % (Auto) 2, Neutrophils (%) (Auto) 81H, Lymphocytes (%) (Auto) 14, Monocytes (%) (Auto) 2, Eosinophils (%) (Auto) 0, Basophils (%) (Auto) 0, Neutrophils # (Auto) 12.5H, Lymphocytes # (Auto) 2.2, Monocytes # (Auto) 0.3, Eosinophils # (Auto) 0.0, Basophils # (Auto) 0.1, Immature Granulocyte # (Auto) 0.3H, Neutrophils % (Manual) 79, Lymphocytes % (Manual) 18, Monocytes % (Manual) 3, Blood Morphology Comment NORMAL, Sodium Level 139, Potassium Level 5.1H, Chloride Level 105, Carbon Dioxide Level 22, Anion Gap 12, Blood Urea Nitrogen 20H, Creatinine 0.90, Estimat Glomerular Filtration Rate 66, BUN/Creatinine Ratio 22, Glucose Level 221H, Calcium Level 9.2, Corrected Calcium 9.1, Magnesium Level 2.2, Total Bilirubin 0.7, Aspartate Amino Transf (AST/SGOT) 53H, Alanine Aminotransferase (ALT/SGPT) 22, Alkaline Phosphatase 59, C-Reactive Protein High Sensitivity 0.12, B-Type Natriuretic Peptide 44.8, Total Protein 7.7, Albumin 4.1 03/01/22 08:18: White Blood Count 17.0H, Red Blood Count 4.64, Hemoglobin 14.9, Hematocrit 45, Mean Corpuscular Volume 98, Mean Corpuscular Hemoglobin 32, Mean Corpuscular Hemoglobin Concent 33, Red Cell Distribution Width 14.6H, Platelet Count 293, Mean Platelet Volume 9.5, Immature Granulocyte % (Auto) 1, Neutrophils (%) (Auto) 83H, Lymphocytes (%) (Auto) 8L, Monocytes (%) (Auto) 8, Eosinophils (%) (Auto) 0, Basophils (%) (Auto) 0, Neutrophils # (Auto) 14.0H, Lymphocytes # (Auto) 1.4, Monocytes # (Auto) 1.3H, Eosinophils # (Auto) 0.1, Basophils # (Auto) 0.0, Immature Granulocyte # (Auto) 0.2H, Sodium Level 141, Potassium Level 4.0, Chloride Level 105, Carbon Dioxide Level 27, Anion Gap 9, Blood Urea Nitrogen 20H, Creatinine 0.74, Estimat Glomerular Filtration Rate 84, BUN/Creatinine Ratio 27, Glucose Level 91, Calcium Level 9.0, Magnesium Level 2.1, Mean Blood Glucose [Pending], Hemoglobin A1c [Pending] Home Meds Active Amoxicillin 500 Mg Capsule 1,000 Mg PO TID 7 Days Clonidine HCl 0.1 Mg Tablet 0.1 Mg PO TID PRN 30 Days Reported Ventolin Hfa (Albuterol Sulfate) 1 Puff Puff 2 Puff INH Q4H PRN Levalbuterol HCl 1.25 Mg/3 Ml Vial.neb 1.25 Mg IH Q4H PRN Vitamin C (Ascorbate Calcium) 500 Mg Tablet 500 Mg PO DAILY Vitamin D3 (Cholecalciferol (Vitamin D3)) 25 Mcg (1000 Unit) Tablet 25 Mcg PO DAILY Ibuprofen 200 Mg Tablet 600 Mg PO Q8H PRN Ativan (Lorazepam) 1 Mg Tablet 1 Mg PO Q6H PRN Metoprolol Tartrate 50 Mg Tablet 50-100 Mg PO BID TAKES 1 TO 2 (50MG) TABS Assessment/Pt Instructions See instructions Discharge Planning: >30 minutes discharge planning Discharge Instructions Discharge Diet: Low Sodium Diet Activity as Tolerated: Yes Discharge Physical Examination Vital Signs Vital Signs Date Time Temp Pulse Resp B/P (MAP) Pulse Ox O2 Delivery O2 Flow Rate FiO2 03/01/22 08:00 36.2 86 18 170/80 (110) 94 Room Air General Appearance: No Apparent Distress, WD/WN HEENT: PERRL/EOMI, Pharynx Normal Respiratory: Lungs Clear, Normal Breath Sounds, No Respiratory Distress Cardiovascular: Regular Rate, Rhythm, No Edema, No Murmur Gastrointestinal: Normal Bowel Sounds, Non Tender, Soft Extremity: Non Tender, No Pedal Edema Skin: Normal Color, Warm/Dry Neurologic/Psychiatric: Alert, Oriented x3, No Motor/Sensory Deficits Allergies: Coded Allergies: codeine (Verified Allergy, Unknown, 03/23/08) gatifloxacin (Verified Allergy, Unknown, 03/23/08) nitrofurantoin (Verified Allergy, Unknown, 03/23/08) Copy Copies To 1: ESTER ALLRED MD Discharge Summary Date of Admission Feb 28, 2022 at 23:59 Date of Discharge Discharge Date: Mar 01, 2022 Discharge Time: 12:07 Admission Diagnosis HTN urgency Discharge Diagnosis (1) Hypertensive urgency Status: Acute (2) Sinusitis Status: Acute Qualifiers: Qualified Codes: J32.9 - Chronic sinusitis, unspecified CHRISTA KEATING MD Mar 01, 2022 12:08
[2022-03-01] MEDS ORDERED: LORazepam 1 MG (ATIVAN) TAB PO SCH (13:00)
[2022-03-01 13:54] VITALS: BP 170/80
[2022-03-01] MEDS ORDERED: cefTRIAXone 1 GM/50 ML (PRE-MIX) IV SCH (21:00)
[2022-03-02] MEDS ORDERED: POTASSIUM CL 10MEQ/50ML IVPB 50 ML IV SCH (06:00)
== END 2022-03-01 13:57 | disposition home or self-care (01) | DRG 305 ==
LOC: EDUNIT# 20:28 → ER 20:34 → 4TH 23:59 → EDLOC 23:59
PROVIDERS: ADMIT Internal Medicine; ATTEND Family Medicine
DX: I16.0 Hypertensive urgency (principal); I10 Essential (primary) hypertension; J32.9 Chronic sinusitis, unspecified; Z88.1 Allergy status to other antibiotic agents; Z88.5 Allergy status to narcotic agent; Z79.1 Long term (current) use of non-steroidal anti-inflammatories (NSAID); Z79.52 Long term (current) use of systemic steroids
CPT/HCPCS: 36415; 70450; 71045; 80048; 80053; 83036; 83735; 83880; 85007; 85025; 85027; 86141; 93005; 93041; 94640; G0378

== ENCOUNTER → 2022-09-20 | Outpatient (CLI) | payer OTHER ==
[~2022-09-20] MED LIST changes: +ASCO-262 PO; +CHOL10004 PO; +CLN.1T PO; +IBUP-2473 PO; +LEVA1.2543 IH; +LORA-405 PO; +METO50TA15 PO; +RT-ALBUINH INH
--- NOTE | 2022-09-20 14:19 | Diagnostic Imaging Report ---
EXAMINATION: Right foot radiographs, 3 views. COMPARISON: Right foot radiographs July 18, 2015. HISTORY: 77-year-old female, right foot pain. Fall 2 days ago. FINDINGS: There is a deformity of the distal metadiaphysis of the foot and metatarsal with bony bridging likely reflecting a healed prior fracture. This is new since July 18, 2015. There is a well-corticated ossification near the distal fibula which may relate to sequela of remote prior injury. There is a calcaneal heel spur and mild degenerative type enthesopathy at the Achilles tendon insertion. There is a normal variant os peroneum. There is no identified acute fracture. There is no radiopaque foreign body. The joint spaces appear well-preserved. There is interval healing of prior fracture of the fifth metatarsal base seen on July 18, 2015. IMPRESSION: 1. No identified acute bony abnormality of the right foot. 2. Healed fracture deformity at the level of the distal aspect of the fifth metatarsal new since 2014 and interval healing of the prior fracture of the fifth metatarsal base. Dictated by: Dictated on workstation # [id number]
== END ==
LOC: RAD 13:42
PROVIDERS: ATTEND Registered Nurse Critical Care Medicine
DX: M79.671 Pain in right foot (principal); J20.8 Acute bronchitis due to other specified organisms; J45.998 Other asthma; Z20.822 Contact with and (suspected) exposure to COVID-19; W18.30XA Fall on same level, unspecified, initial encounter; Y92.098 Other place in other non-institutional residence as the place of occurrence of the external cause
CPT/HCPCS: 73630

== ENCOUNTER 2022-12-06 06:56 | Emergency (ER) | payer OTHER ==
[~2022-12-06] VITALS: Ht 162.5 cm; Wt 62.5 kg
--- NOTE | 2022-12-06 07:03 | ED General ---
General Stated Complaint: HIGH BLOOD PRESSURE 215/105,SOB Source of Information: Patient Exam Limitations: No Limitations History of Present Illness Date Seen by Provider: Dec 06, 2022 Time Seen by Provider: 07:03 Initial Comments Patient is a 77-year-old female with longstanding history of hypertension and anxiety presents with elevated blood pressure. Patient's she had spots in her vision last night which prompted her to check her blood pressure which was elevated 220s over 110s. Patient took clonidine along with her usual metoprolol dose and rechecked her blood pressure later which had been improved. Patient then woke up at 1:00 in the morning and rechecked blood pressure which was elevated contacted EMS. Patient's blood pressure was 218/100. She was instructed to go to the emergency department blood pressure did not improve by morning. Patient noted systolic blood pressure remained elevated in the 200 range after taking morning dose of metoprolol. Patient denies chest pain palpitations but does report congestion and cough in the morning which she attributes to asthma. Denies shortness of breath. No fever chills or sweats. No leg pain or swelling. Denies headache, dizziness, blurred vision, loss of balance, extremity weakness or other strokelike symptoms. No other acute symptoms or complaints. Timing/Duration: Other Modifying Factors: improves with Other Associated Systoms: Other Allergies and Home Medications Allergies Coded Allergies: codeine (Verified Allergy, Unknown, 03/23/08) gatifloxacin (Verified Allergy, Unknown, 03/23/08) nitrofurantoin (Verified Allergy, Unknown, 03/23/08) Patient Home Medication List Home Medication List Reviewed: Yes Albuterol Sulfate (Ventolin Hfa) 1 Puff Puff, 2 PUFF INH Q4H PRN for SHORTNESS OF BREATH, (Reported) Entered as Reported by: NEYDA TRAN on 03/01/22 115 Amoxicillin (Amoxicillin) 500 Mg Capsule, 1,000 MG PO TID Prescribed by: CHRISTA KEATING on 03/01/22 1205 Ascorbate Calcium (Vitamin C) 500 Mg Tablet, 500 MG PO DAILY, (Reported) Entered as Reported by: NEYDA TRAN on 03/01/22 115 Cholecalciferol (Vitamin D3) (Vitamin D3) 25 Mcg (1000 Unit) Tablet, 25 MCG PO DAILY, (Reported) Entered as Reported by: NEYDA TRAN on 03/01/22 1154 Clonidine HCl (Clonidine HCl) 0.1 Mg Tablet, 0.1 MG PO TID PRN for SBP >180 Prescribed by: CHRISTA KEATING on 03/01/22 1205 Levalbuterol HCl (Levalbuterol HCl) 1.25 Mg/3 Ml Vial.neb, 1.25 MG IH Q4H PRN for SHORTNESS OF BREATH, (Reported) Entered as Reported by: NEYDA TRAN on 03/01/22 1154 Lorazepam (Ativan) 1 Mg Tablet, 1 MG PO Q6H PRN for ANXIETY, (Reported) Entered as Reported by: NEYDA TRAN on 03/01/22 1154 Metoprolol Tartrate (Metoprolol Tartrate) 50 Mg Tablet, 50-100 MG PO BID, (Reported) Entered as Reported by: NEYDA TRAN on 03/01/22 1154 Review of Systems Review of Systems Constitutional: see HPI EENTM: see HPI Respiratory: see HPI Cardiovascular: see HPI Gastrointestinal: see HPI Genitourinary: see HPI : No Musculoskeletal: no symptoms reported Skin: no symptoms reported Psychiatric/Neurological: See HPI Hematologic/Lymphatic: See HPI All Other Systems Reviewed Negative Unless Noted: No Past Puhgaoh-Croblq-Rqukoe Hx Patient Social History Tobacco Use?: No Immunizations Up To Date Tetanus Booster (TDap): Unknown PED Vaccines UTD: Yes Seasonal Allergies Seasonal Allergies: Yes Past Medical History Surgery/Hospitalization HX: appy, copd, asthma, htn, svt, gerd, anx/dep Surgeries: Yes Appendectomy Respiratory: Yes Asthma, COPD Currently Using CPAP: No Currently Using BIPAP: No Cardiac: Yes (SVT) 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, Irregular Heartbeat Neurological: No Reproductive Disorders: No Female Reproductive Disorders: Denies [employer]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 Sexually Transmitted Disease: No Genitourinary: No Gastrointestinal: Yes Gastroesophageal Reflux Musculoskeletal: Yes (RIGHT HUMERUS FRACTURE, R FOOT) Arthritis, Fractures Endocrine: No HEENT: No Cancer: No Psychosocial: Yes Anxiety, Depression Integumentary: No Blood Disorders: No Family Medical History Dementia 19 MOTHER, , Age:88, Onset:60 years & older FH: CAD (coronary artery disease) 19 FATHER, , Age:64, Onset:60 years & older FH: CHF (congestive heart failure) 19 MOTHER, , Age:88, Onset:60 years & older Myocardial infarction 19 MOTHER, , Age:88, Onset:50's - 60 No Family History of: AIDS Abdominal aortic aneurysm [place]'s disease Alcoholism Alzheimer's disease Aphasia Arthritis Asthma Cancer of mouth Cardiovascular disease Cataracts Colon cancer Completed stroke Congenital disease Congenital heart disease Coronary thrombosis Cystic fibrosis Deafness or hearing loss Diabetes mellitus Drug abuse Dysphasia Fibrocystic disease of breast Gastroenteritis Glaucoma Headache disorder Hypercholesterolemia 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 Infertility Kidney disease Neoplasm Not obtainable due to adoption Osteoporosis Parkinson's disease Prostate cancer Psychosocial problem Respiratory disorder Seizure disorder Severe allergy Thyroid disease Tuberculosis Visual disorder Heart Disease, Diabetes, 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 Physical Exam Vital Signs Vital Signs - First Documented 12/06/22 07:22 Temp 36.0 Pulse 74 Resp 16 B/P (MAP) 199/115 (143) Pulse Ox 93 O2 Delivery Room Air Capillary Refill : Height, Weight, BMI Height: 5'3.00" Weight: 140lbs. 0.0oz. [id number]; 24.73 BMI Method:Stated General Appearance: No Apparent Distress, WD/WN, Anxious Eyes: Bilateral Eye Normal Inspection, Bilateral Eye PERRL, Bilateral Eye EOMI HEENT: PERRL/EOMI, Pharynx Normal, Moist Mucous Membranes Neck: Full Range of Motion, Normal Inspection, Supple Respiratory: Chest Non Tender, Rhonci Cardiovascular: Regular Rate, Rhythm, No Edema Gastrointestinal: Non Tender, Soft Back: Normal Inspection, No CVA Tenderness Extremity: Normal Inspection, Normal Range of Motion, Non Tender, No Calf Tenderness Neurologic/Psychiatric: Alert, Oriented x3 Skin: Normal Color Progress/Results/Core Measures Suspected Sepsis SIRS Temperature: Pulse: Respiratory Rate: Blood Pressure / Mean: Results/Orders My Orders Orders - JEANETTE MEJIA DO Furosemide Tablet (Lasix Tablet) (12/06/22 08:00) Chest 1 View, Ap/Pa Only (12/06/22 07:47) Medications Given in ED Current Medications Medications Dose Ordered Sig/Dusty Route Start Time Stop Time Status Last Admin Dose Admin Furosemide 20 mg ONCE ONCE PO 12/06/22 08:00 12/06/22 08:01 DC 12/06/22 08:09 10 MG Vital Signs/I&O 12/06/22 07:22 Temp 36.0 Pulse 74 Resp 16 B/P (MAP) 199/115 (143) Pulse Ox 93 O2 Delivery Room Air Capillary Refill : Departure Communication (Admissions) Chest x-ray: Possible small left pleural effusion, otherwise normal chest x-ray per radiology report. Patient is asymptomatic hypertension with increased anxiety state. Blood pressure improved in the emergency department. Recommendations for home, rest and continued blood pressure medication with further management per PCP. Return precautions reviewed. Patient verbalizes understanding agreement discharge in structions prior to departure. Impression Primary Impression: Labile hypertension Disposition: 01 HOME, SELF-CARE Condition: Stable Departure-Patient Inst. Decision time for Depature: 08:48 Referrals: ESTER ALLRED MD (PCP/Family) Primary Care Physician Patient Instructions: High Blood Pressure (DC) Add. Discharge Instructions: You were evaluated in the emergency department for elevated blood pressure. Chest x-ray was performed and is nondiagnostic. Please continue home blood pressure medication regimen and follow-up with your PCP for further management. JEANETTE MEJIA DO Dec 06, 2022 07:03
[2022-12-06] MEDS ORDERED: FUROSEMIDE 20 MG (LASIX) TAB PO ONE (08:00)
--- NOTE | 2022-12-06 08:40 | Diagnostic Imaging Report ---
INDICATION: Cough COMPARISON: 02/28/2022 FINDINGS: There is blunting of the left angle consistent with a new or increased small left effusion. Lungs themselves were clear. There is no failure, effusion or pneumothorax. IMPRESSION: Likely small left pleural effusion, otherwise negative. Dictated by: Dictated on workstation # [id number]
[2022-12-06 09:03] VITALS: BP 170/88
== END 2022-12-06 09:03 | disposition home or self-care (01) ==
LOC: EDUNIT# 06:56 → ER 06:59
DX: I10 Essential (primary) hypertension (principal); Z79.899 Other long term (current) drug therapy
CPT/HCPCS: 71045

== ENCOUNTER 2023-01-10 17:53 | Inpatient (IN) | payer OTHER, MEDICARE ==
[~2023-01-10] VITALS: Ht 162.6 cm; Wt 63.4 kg
[2023-01-10 18:12] LABS: BASOPHILS # (AUTO) 0.1 10^3/uL (0.0-0.1); BASOPHILS % (AUTO) 0 % (0-10); EOSINOPHILS % (AUTO) 0 % (0-10); HEMATOCRIT 60 % (35-52); HEMOGLOBIN 19.6 g/dL (11.5-16.0); LYMPHOCYTES # (AUTO) 0.9 10^3/uL (1.0-4.0); LYMPHOCYTES % (AUTO) 5 % (12-44); MEAN CORPUSCULAR HEMOGLOBIN 32 pg (25-34); MEAN CORPUSCULAR HGB CONC 33 g/dL (32-36); MEAN CORPUSCULAR VOLUME 97 fL (80-99); MONOCYTES # (AUTO) 1.7 10^3/uL (0.0-1.0); MONOCYTES % (AUTO) 10 % (0-12); NEUTROPHILS # (AUTO) 14.2 10^3/uL (1.8-7.8); NEUTROPHILS % (AUTO) 83 % (42-75); PLATELET COUNT 386 10^3/uL (130-400)
--- NOTE | 2023-01-10 18:12 | ED Respiratory ---
General Chief Complaint: Respiratory Problems Stated Complaint: SOA Nursing Triage Note: PT CO OF SOA, PT TO RM 6 PER W/C PT STATES 2-3 DAYS, HAS HX OF ASHTMA. PT HR 140. PT DENIES C/P. PT HAS CL PROD COUGH. DENIES FEVERS Source: patient Exam Limitations: no limitations History of Present Illness Date Seen by Provider: Jan 10, 2023 Time Seen by Provider: 18:01 Initial Comments 77-year-old female with asthma presents to the emergency department today for shortness of breath. She states symptoms present for the last couple of days. She was started on prednisone by her primary care doctor. She states she been using her inhalers, nebulizers at home without any relief. She started using her son's oxygen last night as she stated she could not catch her breath to sleep. She denies any chest pain. She has chronic cough productive of clear phlegm which is unchanged. She denies any fevers or chills. She does have a history of SVT and states symptoms are not similar to these occurrences. No lower extremity pain or swelling. All other systems reviewed and negative except documented per HPI. Voice recognition software was used to help create this chart Allergies and Home Medications Allergies Coded Allergies: codeine (Verified Allergy, Unknown, 03/23/08) gatifloxacin (Verified Allergy, Unknown, 03/23/08) nitrofurantoin (Verified Allergy, Unknown, 03/23/08) Patient Home Medication List Home Medication List Reviewed: Yes Albuterol Sulfate (Ventolin Hfa) 1 Puff Puff, 2 PUFF INH Q4H PRN for SHORTNESS OF BREATH, (Reported) Entered as Reported by: NEYDA TRAN on 03/01/22 1154 Amoxicillin (Amoxicillin) 500 Mg Capsule, 1,000 MG PO TID Prescribed by: CHRISTA KEATING on 03/01/22 1205 Ascorbate Calcium (Vitamin C) 500 Mg Tablet, 500 MG PO DAILY, (Reported) Entered as Reported by: NEYDA TRAN on 03/01/22 1154 Cholecalciferol (Vitamin D3) (Vitamin D3) 25 Mcg (1000 Unit) Tablet, 25 MCG PO DAILY, (Reported) Entered as Reported by: NEYDA TRAN on 03/01/22 1154 Clonidine HCl (Clonidine HCl) 0.1 Mg Tablet, 0.1 MG PO TID PRN for SBP >180 Prescribed by: CHRISTA KEATING on 03/01/22 1205 Levalbuterol HCl (Levalbuterol HCl) 1.25 Mg/3 Ml Vial.neb, 1.25 MG IH Q4H PRN for SHORTNESS OF BREATH, (Reported) Entered as Reported by: NEYDA TRAN on 03/01/22 1154 Lorazepam (Ativan) 1 Mg Tablet, 1 MG PO Q6H PRN for ANXIETY, (Reported) Entered as Reported by: NEYDA TRAN on 03/01/22 1154 Metoprolol Tartrate (Metoprolol Tartrate) 50 Mg Tablet, 50-100 MG PO BID, (Reported) Entered as Reported by: NEYDA TRAN on 03/01/22 1154 Review of Systems Review of Systems Constitutional: see HPI Past Oryjsna-Bablzo-Pkgair Hx Patient Social History Tobacco Use?: No Smoking Status: Former Smoker Substance use?: No Alcohol Use?: No Pt feels they are or have been: Yes Immunizations Up To Date Tetanus Booster (TDap): Unknown PED Vaccines UTD: Yes Influenza Vaccine Up-to-Date: No; Not Current First/Initial COVID19 Vaccinat: YES Seasonal Allergies Seasonal Allergies: Yes Past Medical History Surgery/Hospitalization HX: appy, copd, asthma, htn, svt, gerd, anx/dep Surgeries: Yes Appendectomy Respiratory: Yes Asthma, COPD Currently Using CPAP: No Currently Using BIPAP: No Cardiac: Yes (SVT) 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, Irregular Heartbeat Neurological: No Reproductive Disorders: No Female Reproductive Disorders: Denies 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 Sexually Transmitted Disease: No Genitourinary: No Gastrointestinal: Yes Gastroesophageal Reflux Musculoskeletal: Yes (RIGHT HUMERUS FRACTURE, R FOOT) Arthritis, Fractures Endocrine: No HEENT: No Cancer: No Psychosocial: Yes Anxiety, Depression Integumentary: No Blood Disorders: No Family Medical History Dementia 19 MOTHER, , Age:88, Onset:60 years & older FH: CAD (coronary artery disease) 19 FATHER, , Age:64, Onset:60 years & older FH: CHF (congestive heart failure) 19 MOTHER, , Age:88, Onset:60 years & older Myocardial infarction 19 MOTHER, , Age:88, Onset:50's - 60 No Family History of: AIDS Abdominal aortic aneurysm Saqib's disease Alcoholism Alzheimer's disease Aphasia Arthritis Asthma Cancer of mouth Cardiovascular disease Cataracts Colon cancer Completed stroke Congenital disease Congenital heart disease Coronary thrombosis Cystic fibrosis Deafness or hearing loss Diabetes mellitus Drug abuse Dysphasia Fibrocystic disease of breast Gastroenteritis Glaucoma Headache disorder Hypercholesterolemia 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 Infertility Kidney disease Neoplasm Not obtainable due to adoption Osteoporosis Parkinson's disease Prostate cancer Psychosocial problem Respiratory disorder Seizure disorder Severe allergy Thyroid disease Tuberculosis Visual disorder Heart Disease, Diabetes, 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 Physical Exam Vital Signs - First Documented 01/10/23 17:55 Temp 36.7 Pulse 140 Resp 39 B/P (MAP) 233/144 (173) Pulse Ox 95 O2 Delivery Nasal Cannula O2 Flow Rate 3.00 Capillary Refill : Less Than 3 Seconds Height: 5'3.00" Weight: 140lbs. 0.0oz. 63.317314eo; 23.00 BMI Method:Stated General Appearance: WD/WN, no apparent distress Eyes: Bilateral Eye Normal Inspection, Bilateral Eye PERRL, Bilateral Eye EOMI HEENT: normal ENT inspection, TMs normal, pharynx normal Neck: non-tender, supple, normal inspection Respiratory: chest non-tender, other (Decreased breath sounds bilaterally. Increased work of breathing with slight respiratory distress.) Cardiovascular: no edema, no murmur, tachycardia Gastrointestinal: normal bowel sounds, non tender, soft, no organomegaly, no pulsatile mass Extremities: non-tender, normal inspection, no pedal edema, normal capillary refill Neurologic/Psychiatric: alert, normal mood/affect, oriented x 3 Skin: normal color, warm/dry Focused Exam Lactate Level 01/10/23 18:00: Lactic Acid Level 1.68 Lactic Acid Level Laboratory Tests Test 01/10/23 18:00 Lactic Acid Level 1.68 MMOL/L (0.50-2.00) Progress/Results/Core Measures Suspected Sepsis SIRS Temperature: Pulse: 140 Respiratory Rate: 39 Laboratory Tests 01/10/23 18:00: White Blood Count 17.0H Blood Pressure 233 /144 Mean: 173 01/10/23 18:00: Lactic Acid Level 1.68 Laboratory Tests 01/10/23 18:00: Creatinine 0.84, Platelet Count 386, Total Bilirubin 1.2H Results/Orders Lab Results Laboratory Tests Test 01/10/23 18:00 01/10/23 18:09 01/10/23 18:37 Range/Units White Blood Count 17.0 H 4.3-11.0 10^3/uL Red Blood Count 6.22 H 3.80-5.11 10^6/uL Hemoglobin 19.6 H 11.5-16.0 g/dL Hematocrit 60 H 35-52 % Mean Corpuscular Volume 97 80-99 fL Mean Corpuscular Hemoglobin 32 25-34 pg Mean Corpuscular Hemoglobin Concent 33 32-36 g/dL Red Cell Distribution Width 16.2 H 10.0-14.5 % Platelet Count 386 130-400 10^3/uL Mean Platelet Volume 10.0 9.0-12.2 fL Immature Granulocyte % (Auto) 1 % Neutrophils (%) (Auto) 83 H 42-75 % Lymphocytes (%) (Auto) 5 L 12-44 % Monocytes (%) (Auto) 10 0-12 % Eosinophils (%) (Auto) 0 0-10 % Basophils (%) (Auto) 0 0-10 % Neutrophils # (Auto) 14.2 H 1.8-7.8 10^3/uL Lymphocytes # (Auto) 0.9 L 1.0-4.0 10^3/uL Monocytes # (Auto) 1.7 H 0.0-1.0 10^3/uL Eosinophils # (Auto) 0.0 0.0-0.3 10^3/uL Basophils # (Auto) 0.1 0.0-0.1 10^3/uL Immature Granulocyte # (Auto) 0.2 H 0.0-0.1 10^3/uL Neutrophils % (Manual) 87 % Lymphocytes % (Manual) 5 % Monocytes % (Manual) 8 % Blood Morphology Comment NORMAL Sodium Level 140 135-145 MMOL/L Potassium Level 4.4 3.6-5.0 MMOL/L Chloride Level 103 98-107 MMOL/L Carbon Dioxide Level 27 21-32 MMOL/L Anion Gap 10 5-14 MMOL/L Blood Urea Nitrogen 14 7-18 MG/DL Creatinine 0.84 0.60-1.30 MG/DL Estimat Glomerular Filtration Rate 72 BUN/Creatinine Ratio 17 Glucose Level 105 70-105 MG/DL Lactic Acid Level 1.68 0.50-2.00 MMOL/L Calcium Level 10.6 H 8.5-10.1 MG/DL Corrected Calcium 8.5-10.1 MG/DL Total Bilirubin 1.2 H 0.1-1.0 MG/DL Aspartate Amino Transf (AST/SGOT) 17 5-34 U/L Alanine Aminotransferase (ALT/SGPT) 22 0-55 U/L Alkaline Phosphatase 69 40-136 U/L Troponin I 0.032 H <0.028 NG/ML Total Protein 8.1 6.4-8.2 GM/DL Albumin 4.6 H 3.2-4.5 GM/DL SARS-CoV-2 RNA (RT-PCR) Not Detected Not Detecte Urine Color YELLOW Urine Clarity SL CLOUDY Urine pH 6.5 5-9 Urine Specific [place] 1.015 L 1.016-1.022 Urine Protein 2+ H NEGATIVE Urine Glucose (UA) NEGATIVE NEGATIVE Urine Ketones NEGATIVE NEGATIVE Urine Nitrite POSITIVE H NEGATIVE Urine Bilirubin NEGATIVE NEGATIVE Urine Urobilinogen 0.2 < = 1.0 MG/DL Urine Leukocyte Esterase 1+ H NEGATIVE Urine RBC (Auto) 2+ H NEGATIVE Urine RBC 10-25 H /HPF Urine WBC 10-25 H /HPF Urine Squamous Epithelial Cells 5-10 /HPF Urine Crystals NONE /LPF Urine Bacteria LARGE H /HPF Urine Casts PRESENT /LPF Urine Hyaline Casts RARE /LPF Urine Mucus NEGATIVE /LPF Urine Culture Indicated CULTURE PENDING My Orders Orders - MURRAYJASMYN DO Cbc With Automated Diff (01/10/23 18:06) Comprehensive Metabolic Panel (01/10/23 18:06) Blood Culture (01/10/23 18:06) Urinalysis (01/10/23 18:06) Urine Culture (01/10/23 18:06) Chest 1 View, Ap/Pa Only (01/10/23 18:06) Ed Iv/Invasive Line Start (01/10/23 18:06) Ekg Tracing (01/10/23 18:06) Troponin I Stephanie (01/10/23 18:06) Vital Signs Adult Sepsis Patie Q15M (01/10/23 18:06) O2 (01/10/23 18:06) Lactic Acid Analyzer (01/10/23 18:06) Covid 19 Inhouse Test (01/10/23 18:06) Albuterol/Ipra Inhalation Soln (Duoneb I (01/10/23 18:15) Methylprednisolone Sod Succ (Solu-Medrol (01/10/23 18:15) Svn Small Volume Nebulizer (01/10/23 18:12) Manual Differential (01/10/23 18:00) Acetaminophen Tablet (Tylenol Tablet) (01/10/23 18:30) Ct Angio Chest W (01/10/23 18:30) Iohexol Injection (Omnipaque 350 Mg/Ml 1 (01/10/23 18:45) Received Contrast (Hold Metformin- Contr (01/10/23 18:45) Ns (Ivpb) (Sodium Chloride 0.9% Ivpb Bag (01/10/23 18:45) Levalbuterol (Non-Formulary) (Xopenex (N (01/10/23 18:43) Ed Admission (Communication) (01/10/23 19:55) Ceftriaxone Iv/Im (Rocephin Iv/Im) (01/10/23 20:00) Medications Given in ED Current Medications Medications Dose Ordered Sig/Dusty Route Start Time Stop Time Status Last Admin Dose Admin Acetaminophen 1,000 mg ONCE ONCE PO 01/10/23 18:30 01/10/23 18:31 DC 01/10/23 18:35 1,000 MG Ceftriaxone Sodium 1000 mg/ Sodium Chloride 50 ml @ 100 mls/hr ONCE ONCE IV 01/10/23 20:00 01/10/23 20:29 DC 01/10/23 20:49 100 MLS/HR Iohexol 100 ml ONCE ONCE IV 01/10/23 18:45 01/10/23 18:46 DC 01/10/23 19:21 59 ML Levalbuterol HCl 1.25 mg STK-MED ONCE .ROUTE 01/10/23 18:43 01/10/23 18:45 DC 01/10/23 18:47 1.25 MG Methylprednisolone Sodium Succinate 125 mg ONCE ONCE IVP 01/10/23 18:15 01/10/23 18:16 DC 01/10/23 18:25 125 MG Sodium Chloride 100 ml ONCE ONCE IV 01/10/23 18:45 01/10/23 18:46 DC 01/10/23 19:21 80 ML Vital Signs/I&O 01/10/23 01/10/23 01/10/23 17:55 17:55 18:45 Temp 36.7 Pulse 140 Resp 39 B/P (MAP) 233/144 (173) Pulse Ox 95 92 96 O2 Delivery Nasal Cannula Nasal Cannula O2 Flow Rate 3.00 3.00 Capillary Refill : Less Than 3 Seconds Blood Pressure Mean: 173 ECG EKG : Comment My independent review of the EKG shows a sinus rhythm at 83 bpm. Normal intervals. Left axis deviation. No ST or T wave abnormalities. No ectopy. No STEMI. Critical Care Note Critical Care Total Time (minutes) 60 Departure Communication (Admissions) Patient initially slightly hypoxic, 87% on room air. Improved rapidly with 2 L via nasal cannula. She is feeling somewhat better but still has increased work of breathing. Her chest x-ray is initially clear. Without I went ahead and ordered a CT angiography to rule out pulmonary embolus or other unidentified pathology that was not seen on the chest x-ray. This was also normal. Her labs show some leukocytosis. She does have a urinary tract infection and incidentally found. I have ordered IV Rocephin for this. She does meet sepsis criteria with tachycardia, leukocytosis and a source of infection however she does not meet severe sepsis criteria and does not require 30 cc/kg fluid bolus. She is hypertensive, has never been hypotensive troponin is slightly elevated but her EKG is nonischemic. She denies any chest pain at present. Unclear exact etiology. 1954: Spoke to Dr Freire, accepts admission. 1958: Spoke to Dr Velarde, cardiology, no further orders at this time. Will see patient in AM. Impression Primary Impression: Hypoxia Additional Impressions: Atrial tachycardia Dyspnea Qualified Codes: R06.00 - Dyspnea, unspecified UTI (urinary tract infection) Qualified Codes: N30.01 - Acute cystitis with hematuria Elevated troponin Disposition: ADMITTED INPATIENT Condition: Stable Departure-Patient Inst. Referrals: ESTER ALLRED MD (PCP/Family) Primary Care Physician JASMYN GAO DO Jan 10, 2023 18:12
[2023-01-10] MEDS ORDERED: RT-ALBUTEROL/IPRATROPIUM 3 ML (DUONEB) VIAL INH ONE (18:15)
[2023-01-10] MEDS ORDERED: methylPREDNISolone 125 MG (Solu-MEDROL) VIAL IVP ONE (18:15)
[2023-01-10 18:18] LABS: ALBUMIN 4.6 GM/DL (3.2-4.5)
[2023-01-10 18:19] LABS: CHLORIDE 103 MMOL/L (98-107); POTASSIUM 4.4 MMOL/L (3.6-5.0); SODIUM 140 MMOL/L (135-145)
[2023-01-10 18:20] LABS: CALCIUM 10.6 MG/DL (8.5-10.1)
[2023-01-10 18:21] LABS: GLUCOSE 105 MG/DL (70-105); TOTAL PROTEIN 8.1 GM/DL (6.4-8.2)
[2023-01-10 18:22] LABS: CARBON DIOXIDE 27 MMOL/L (21-32)
[2023-01-10 18:23] LABS: BILIRUBIN,TOTAL 1.2 MG/DL (0.1-1.0)
[2023-01-10 18:25] LABS: ALKALINE PHOSPHATASE 69 U/L (40-136); CREATININE SERUM 0.84 MG/DL (0.60-1.30); GFR ESTIMATED 72
[2023-01-10 18:26] LABS: BUN/CREATININE RATIO 17
[2023-01-10 18:28] LABS: ALANINE AMINOTRANSFERASE 22 U/L (0-55)
[2023-01-10] MEDS ORDERED: ACETAMINOPHEN 500 MG TAB (TYLENOL) PO ONE (18:30)
--- NOTE | 2023-01-10 18:36 | Diagnostic Imaging Report ---
INDICATION: dyspnea, hypoxia COMPARISON: 12/06/2022 FINDINGS: Single frontal view of the chest demonstrates normal heart size and pulmonary vascularity. The lungs are well aerated and clear. No large pleural effusion or pneumothorax is seen. The visualized osseous structures show no acute abnormalities. IMPRESSION: 1. No acute cardiopulmonary process. Dictated by: Dictated on workstation # [id number]
[2023-01-10] MEDS ORDERED: RT-LEVALBUTEROL (XOPENEX) 1.25 MG/3 ML NEB NON-FORMULARY ONE (18:43)
[2023-01-10] MEDS ORDERED: HOLD METFORMIN - RECEIVED CONTRAST 20 ML VIAL IV SCH (18:45)
[2023-01-10] MEDS ORDERED: NS 100 ML (IVPB) BAG IV ONE (18:45)
[2023-01-10] MEDS ORDERED: IOHEXOL 350 MG/ML 100 ML (OMNIPAQUE 350) VIAL IV ONE (18:45)
[2023-01-10 18:46] LABS: BILIRUBIN,URINE NEGATIVE (NEGATIVE); CLARITY,URINE SL CLOUDY; COLOR,URINE YELLOW; GLUCOSE, URINE (UA) NEGATIVE (NEGATIVE); KETONES,URINE NEGATIVE (NEGATIVE); LEUKOCYTE ESTERASE ,URINE 1+ (NEGATIVE); NITRITE,URINE POSITIVE (NEGATIVE); PH,URINE 6.5 (5-9); PROTEIN,URINE 2+ (NEGATIVE)
[2023-01-10 18:57] LABS: BACTERIA,URINE LARGE /HPF; HYALINE CASTS, URINE RARE /LPF
[2023-01-10 19:16] LABS: LYMPHOCYTES % (MANUAL) 5 %; MONOCYTES % (MANUAL) 8 %; NEUTROPHILS % (MANUAL) 87 %; RBC MORPH NORMAL
--- NOTE | 2023-01-10 19:43 | Diagnostic Imaging Report ---
PROCEDURE: CT angiography of the chest with contrast. TECHNIQUE: Multiple contiguous axial images were obtained through the chest after uneventful bolus administration of intravenous contrast. 3D reconstructed CTA MIP acquisitions were also performed. Auto Exposure Controls were utilized during the CT exam to meet ALARA standards for radiation dose reduction. INDICATION: Dyspnea and hypoxia. Shortness of air. History of asthma. COMPARISON: Chest radiograph from earlier the same day. FINDINGS: No abnormal intraluminal filling defect is seen within the pulmonary arteries to the 1st subsegmental division. Thoracic aorta is suboptimally opacified. There is moderate calcified and noncalcified atherosclerosis of the descending thoracic aorta. By NASCET criteria, there is no focal significant stenosis. There does appear to be mixing of contrast within the descending thoracic aorta, but there is no convincing evidence of dissection. There is no aneurysm. Heart size is within normal limits. There is no large pericardial effusion. No pathologically enlarged or morphologically abnormal adenopathy is seen within the mediastinum, diya or axilla. Lungs are clear. There is no focal consolidation, large effusion or pneumothorax. Punctate 4 mm subpleural micronodule is noted within the lateral margins of the left lower lobe and may be partially calcified (image 102, series 3). This is stable compared to 01/15/2016. No other suspicious pulmonary nodule or mass is seen. Osseous structures show age-related degenerative changes. No lytic or blastic bony lesions are seen. Included portions of the upper abdomen show multiple nonobstructive left renal calculi and renal cysts. Multiple gallstones are also noted. IMPRESSION: 1. No acute cardiopulmonary process. 2. No pulmonary embolus. 3. Cholelithiasis. Dictated by: Dictated on workstation # [id number]
[2023-01-10] MEDS ORDERED: cefTRIAXone IV/IM 1,000 MG in NS (IVPB) 50 ML IV ONE (20:00)
[2023-01-10 21:00] VITALS: BP 205/111
[2023-01-10 21:15] VITALS: BP 175/118
[2023-01-10] MEDS ORDERED: MELATONIN 3 MG TABLET PO PRN (21:15)
[2023-01-10] MEDS ORDERED: polyethylene glycoL POWDER 17 GM (MIRALAX) PACK PO PRN (21:15)
[2023-01-10] MEDS ORDERED: CALCIUM CARBONATE 500 MG (TUMS) TAB.CHEW PO PRN (21:15)
[2023-01-10] MEDS ORDERED: ONDANSETRON 4 MG/2 ML (SDV) Z0FRAN IV PRN (21:15)
[2023-01-10] MEDS ORDERED: ANTACID SUSP 30 ML UDC (MYLANTA) PO PRN (21:15)
[2023-01-10] MEDS ORDERED: MILK OF MAGNESIA 400 MG/5 ML 30 ML UDC PO PRN (21:15)
[2023-01-10 21:30] VITALS: BP 166/104
[2023-01-10 21:45] VITALS: BP 168/84
[2023-01-10] MEDS: ENOXAPARIN 40 MG/0.4 ML (LOVENOX) SYR SC SCH (22:00)
[2023-01-10] MEDS: NS IV 1000 ML 1,000 ML IV SCH (22:01)
[2023-01-10 22:15] VITALS: BP 164/93
[2023-01-10 22:45] VITALS: BP 167/108
[2023-01-11] VITALS: BP 147/87
[2023-01-11] MEDS: hydrALAZINE (APESOLINE) 20 MG/ML VIAL IV PRN ×2 (00:45→07:56)
[2023-01-11] MEDS ORDERED: LORazepam 1 MG (ATIVAN) TAB ONE (01:18)
[2023-01-11] MEDS: LORazepam 1 MG (ATIVAN) TAB PO PRN ×3 (01:20→14:09)
[2023-01-11] MEDS: RT-LEVALBUTEROL (XOPENEX) 1.25 MG/3 ML NEB NON-FORMULARY INH SCH ×4 (01:26→21:16)
[2023-01-11] MEDS: ACETAMINOPHEN 325 MG TABLET PO PRN ×3 (03:41→22:40)
[2023-01-11 04:00] VITALS: BP 146/81
[2023-01-11 04:42] LABS: HEMATOCRIT 55 % (35-52); HEMOGLOBIN 17.9 g/dL (11.5-16.0); MEAN CORPUSCULAR HEMOGLOBIN 32 pg (25-34); MEAN CORPUSCULAR HGB CONC 33 g/dL (32-36); MEAN CORPUSCULAR VOLUME 96 fL (80-99); MEAN PLATELET VOLUME 10.1 fL (9.0-12.2); PLATELET COUNT 333 10^3/uL (130-400); WHITE BLOOD COUNT 16.4 10^3/uL (4.3-11.0)
[2023-01-11 04:53] LABS: CALCIUM 9.8 MG/DL (8.5-10.1)
[2023-01-11 04:54] LABS: TOTAL PROTEIN 6.8 GM/DL (6.4-8.2)
[2023-01-11 04:56] LABS: BILIRUBIN,TOTAL 0.9 MG/DL (0.1-1.0)
[2023-01-11 04:58] LABS: CREATININE SERUM 0.84 MG/DL (0.60-1.30)
[2023-01-11] MEDS: NS IV 1000 ML 1,000 ML IV SCH ×2 (07:15→17:08)
[2023-01-11 08:03] VITALS: BP 190/111
[2023-01-11] MEDS ORDERED: meTOprolol TARTRATE 50 MG (LOPRESSOR) TAB ONE (08:03)
[2023-01-11] MEDS ORDERED: IBUPROFEN 600 MG (MOTRIN) TAB PO ONE (08:03)
[2023-01-11] MEDS: IBUPROFEN 600 MG (MOTRIN) TAB PO PRN ×2 (08:10→14:09)
[2023-01-11] MEDS: meTOprolol TARTRATE 50 MG (LOPRESSOR) TAB PO SCH ×3 (08:10→21:38)
[2023-01-11] MEDS: DOCUSATE SODIUM 100 MG (COLACE) CAP PO SCH ×2 (08:18→21:33)
[2023-01-11] MEDS ORDERED: RT-ALBUTEROL SULF 2.5 MG/3 ML PRE-MIX VIAL INH PRN (09:00)
--- NOTE | 2023-01-11 09:01 | History & Physical-Hospitalist ---
History of Present Illness HPI/Chief Complaint Patient is a 77-year-old female with past medical history of hypertension, SVT, asthma, anxiety who presented to the emergency department due to shortness of breath. States she has a long history of asthma and will frequently need rounds of steroids to help with this. She started feeling short of breath over the past few days called her primary care physician for this and was sent steroids. She had been compliant with those and had been using her inhaler "too much" and despite this continued to worsen. She presented to the emergency department because she had to use her son's oxygen to keep her oxygen levels up. He does complain of a cough though this is relatively unchanged from her baseline cough. In the emergency room she was found to be hypoxic with sats in the high 80s which resolved with nasal cannula. She was found to have an intermittent tachycardia though. There were unable to catch this on EKG though it appeared narrow complex per the emergency room. She was also incidentally found to have a urinary tract infection. She was admitted to the hospital for further management of her asthma and UTI and for cardiology consultation given her intermittent tachycardia. This morning she reports feeling somewhat better though was frustrated overnight due to it being hot in her room and not having her normal medicines but that did improve when she got an Ativan. She is concerned about why she needs oxygen. We discussed the pathophysiology of asthma and bronchospasm and that we will attempt to wean her off oxygen if able and continue to treat her with steroids and Xopenex. Source: patient Exam Limitations: no limitations Date Seen 01/11/23 Time Seen by a Provider: 09:01 Attending Physician Tim Michael MD PCP Admitting Physician: Arslan Cohen MD Attending Physician: Arslan Cohen MD Referring Physician Date of Admission Jan 10, 2023 at 20:51 Home Medications & Allergies Home Medications Reviewed patient Home Medication Reconciliation performed by pharmacy medication reconciliations certified master safe technician and/or nursing. Patients Allergies have been reviewed. Allergies Allergies Coded Allergies codeine (Verified Allergy, Unknown, 03/23/08) gatifloxacin (Verified Allergy, Unknown, 03/23/08) nitrofurantoin (Verified Allergy, Unknown, 03/23/08) Past Awwssnc-Loxqae-Fjnaqo Hx Patient Social History Marrital Status: Tobacco Use?: No Smoking Status: Never a Smoker Substance use?: No Alcohol Use?: No Pt feels they are or have been: No Immunizations Up To Date First/Initial COVID19 Vaccinat: YES Tetanus Booster (TDap): Unknown PED Vaccines UTD: Yes Seasonal Allergies Seasonal Allergies: Yes Current Status Advance Directives: No Communicates: Verbally Primary Language: Moroccan Preferred Spoken Language: Moroccan Is interpretation needed?: No Implanted or Applied Medical D: None Past Medical History Surgeries: Appendectomy Asthma, COPD Currently Using CPAP: No Currently Using BIPAP: No 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, 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 Sexually Transmitted Disease: No Gastroesophageal Reflux Arthritis, Fractures Anxiety, Depression Blood Disorders: No Family Medical History Reviewed Nursing Family Hx Dementia 19 MOTHER, , Age:88, Onset:60 years & older FH: CAD (coronary artery disease) 19 FATHER, , Age:64, Onset:60 years & older FH: CHF (congestive heart failure) 19 MOTHER, , Age:88, Onset:60 years & older Myocardial infarction 19 MOTHER, , Age:88, Onset:50's - 60 No Family History of: AIDS Abdominal aortic aneurysm Riley's disease Alcoholism Alzheimer's disease Aphasia Arthritis Asthma Cancer of mouth Cardiovascular disease Cataracts Colon cancer Completed stroke Congenital disease Congenital heart disease Coronary thrombosis Cystic fibrosis Deafness or hearing loss Diabetes mellitus Drug abuse Dysphasia Fibrocystic disease of breast Gastroenteritis Glaucoma Headache disorder Hypercholesterolemia 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 Infertility Kidney disease Neoplasm Not obtainable due to adoption Osteoporosis Parkinson's disease Prostate cancer Psychosocial problem Respiratory disorder Seizure disorder Severe allergy Thyroid disease Tuberculosis Visual disorder Heart Disease, Diabetes, 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 Review of Systems Constitutional: see HPI Physical Exam Physical Exam Vital Signs Vital Signs - First Documented 01/10/23 17:55 Temp 36.7 Pulse 140 Resp 39 B/P (MAP) 233/144 (173) Pulse Ox 95 O2 Delivery Nasal Cannula O2 Flow Rate 3.00 Capillary Refill : Less Than 3 Seconds Height, Weight, BMI Height: 5'3.00" Weight: 140lbs. 0.0oz. [id number]; 22.99 BMI Method:Stated General Appearance: No Apparent Distress Respiratory: Decreased Breath Sounds, Wheezing (expiratory) Cardiovascular: Regular Rate, Rhythm, No Murmur, Normal Peripheral Pulses Gastrointestinal: Normal Bowel Sounds, Non Tender, Soft Neurologic/Psychiatric: Alert, Oriented x3, Normal Mood/Affect Results Results/Procedures Labs Laboratory Tests 01/10/23 18:00 01/11/23 04:21 01/12/23 03:50 Patient resulted labs reviewed. Imaging: Reviewed Imaging Report [facility] [place] NAME: GE MARIE [facility] REC#: [id number] PT STATUS: REG ER : 1945 PHYSICIAN: JASMYN GAO DO ADMIT DATE: 01/10/23/ER Draft Date of Exam:01/10/23 CHEST 1 VIEW, AP/PA ONLY INDICATION: dyspnea, hypoxia COMPARISON: 12/06/2022 FINDINGS: Single frontal view of the chest demonstrates normal heart size and pulmonary vascularity. The lungs are well aerated and clear. No large pleural effusion or pneumothorax is seen. The visualized osseous structures show no acute abnormalities. IMPRESSION: 1. No acute cardiopulmonary process. Dictated on workstation # [id number] Dict: 01/10/231834 Trans: 01/10/231835 MARY ALICE [id number] Interpreted by: EVAN GONZALEZ MD Electronically signed by: [facility] [place] [place] NAME: GE MARIE [facility] REC#: [id number] PT STATUS: REG ER : 1945 PHYSICIAN: JASMYN GAO DO ADMIT DATE: 01/10/23/ER Draft Date of Exam:01/10/23 CT ANGIO CHEST W PROCEDURE: CT angiography of the chest with contrast. TECHNIQUE: Multiple contiguous axial images were obtained through the chest after uneventful bolus administration of intravenous contrast. 3D reconstructed CTA MIP acquisitions were also performed. Auto Exposure Controls were utilized during the CT exam to meet ALARA standards for radiation dose reduction. INDICATION: Dyspnea and hypoxia. Shortness of air. History of asthma. COMPARISON: Chest radiograph from earlier the same day. FINDINGS: No abnormal intraluminal filling defect is seen within the pulmonary arteries to the 1st subsegmental division. Thoracic aorta is suboptimally opacified. There is moderate calcified and noncalcified atherosclerosis of the descending thoracic aorta. By NASCET criteria, there is no focal significant stenosis. There does appear to be mixing of contrast within the descending thoracic aorta, but there is no convincing evidence of dissection. There is no aneurysm. Heart size is within normal limits. There is no large pericardial effusion. No pathologically enlarged or morphologically abnormal adenopathy is seen within the mediastinum, diya or axilla. Lungs are clear. There is no focal consolidation, large effusion or pneumothorax. Punctate 4 mm subpleural micronodule is noted within the lateral margins of the left lower lobe and may be partially calcified (image 102, series 3). This is stable compared to 01/15/2016. No other suspicious pulmonary nodule or mass is seen. Osseous structures show age-related degenerative changes. No lytic or blastic bony lesions are seen. Included portions of the upper abdomen show multiple nonobstructive left renal calculi and renal cysts. Multiple gallstones are also noted. IMPRESSION: 1. No acute cardiopulmonary process. 2. No pulmonary embolus. 3. Cholelithiasis. Dictated on workstation # [id number] Dict: 01/10/231930 Trans: 01/10/231940 E [id number] Interpreted by: EVAN GONZALEZ MD Electronically signed by: Assessment/Plan Admission Diagnosis Acute hypoxic respiratory failure due to asthma exacerbation Admission Status: Inpatient Order (span 2 midnights) Reason for Inpatient Admission: failed outaptient management Assessment and Plan Acute hypoxic respiratory failure due to asthma exacerbation Continue Steroids Continue xopenex Discussed risks of Albuterol with her given her tachycardia and ordered prn, she will attempt to stick with Xopenex but would like prn if she can't make to 6 hours MAT protocol Wean oxygen as able Sepsis due to UTI Continue IV abx Await cultures Tachycardia Elevated troponin HTN has history of SVT and manages at home with metoprolol and diving reflex mechanisms Monitor on telemetry Cardiology consulted Troponin from 0.032-0.08 Consider cardizem instead of metoprolol due to asthma if she is agreeable Continue home lisinopril DVT ppx: Lovenox Diagnosis/Problems Diagnosis/Problems (1) Atrial tachycardia Status: Acute (2) Elevated troponin Status: Acute (3) UTI (urinary tract infection) Status: Acute Qualifiers: Urinary tract infection type: acute cystitis Hematuria presence: with hematuria Qualified Codes: N30.01 - Acute cystitis with hematuria (4) Hypoxia Status: Acute (5) Tachyarrhythmia (6) Asthma exacerbation Status: Acute ARSLAN COHEN MD Jan 11, 2023 09:01
[2023-01-11] MEDS: methylPREDNISolone 125 MG (Solu-MEDROL) VIAL IVP SCH ×3 (09:53→21:38)
[2023-01-11] MEDS: lisINopril 10 MG (PRINIVIL) TABLET PO SCH ×2 (09:58→10:41)
[2023-01-11 10:06] LABS: FREE T4 (FREE THYROXINE) 1.09 NG/DL (0.70-1.48)
--- NOTE | 2023-01-11 10:07 | Consultation-Cardiology ---
HPI-Cardiology Cardiology Consultation: Date of Consultation 01/11/23 Date of Admission Attending Physician Tim Michael MD Admitting Physician Admitting Physician: Yanna Freire MD Attending Physician: Yanna Freire MD Consulting Physician LISE WATTERS MD HPI: Time Seen by a Provider: 09:15 Mrs. Kay is a 77-year-old female with a history of asthma hypertension supraventricular tachycardia GERD depression anxiety who presents for evaluation of shortness of breath for several days. SOB due to asthma. Known hx of SVT ## SVT: telemetry demonstrates HR up to 180s. SVT that initiates with PAC and termniates with a non conduced p wave. ? AT vs AVnRT. - long standing issue for patient (she actually puts her head in a bucket of ice cold water to help it terminate- old school remedy) - can control with metop po; for longer episodes, consider Metop or Dilt IV - BNP mildlly elevated at 133; will hold on cardiac imaging for now. ## Asthma: plan per hospitalist. ## Dispo: - chronic issues - we will sign off for now, pl call with questions NSU-Wbgkeq-Wcqydg Hx Patient Social History Smoking Status: Never a Smoker Former smoker/When Quit: Jul 04, 1983 2nd Hand Smoke Exposure: Yes Have you traveled recently?: No Alcohol Use?: No Pt feels they are or have been: No Immunizations Up To Date Tetanus Booster (TDap): Unknown Past Medical History PMH Asthma hypertension SVT GERD depression anxiety Family Medical History Family History: Dementia 19 MOTHER, , Age:88, Onset:60 years & older FH: CAD (coronary artery disease) 19 FATHER, , Age:64, Onset:60 years & older FH: CHF (congestive heart failure) 19 MOTHER, , Age:88, Onset:60 years & older Myocardial infarction 19 MOTHER, , Age:88, Onset:50's - 60 No Family History of: AIDS Abdominal aortic aneurysm [place]'s disease Alcoholism Alzheimer's disease Aphasia Arthritis Asthma Cancer of mouth Cardiovascular disease Cataracts Colon cancer Completed stroke Congenital disease Congenital heart disease Coronary thrombosis Cystic fibrosis Deafness or hearing loss Diabetes mellitus Drug abuse Dysphasia Fibrocystic disease of breast Gastroenteritis Glaucoma Headache disorder Hypercholesterolemia 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 Infertility Kidney disease Neoplasm Not obtainable due to adoption Osteoporosis Parkinson's disease Prostate cancer Psychosocial problem Respiratory disorder Seizure disorder Severe allergy Thyroid disease Tuberculosis Visual disorder Allergies and Home Medications Allergies Coded Allergies: codeine (Verified Allergy, Unknown, 03/23/08) gatifloxacin (Verified Allergy, Unknown, 03/23/08) nitrofurantoin (Verified Allergy, Unknown, 03/23/08) Patient Home Medication List Home Medication List Reviewed: Yes Albuterol Sulfate (Ventolin Hfa) 1 Puff Puff, 2 PUFF INH Q4H PRN for SHORTNESS OF BREATH, (Reported) Entered as Reported by: NEYDA TRAN on 03/01/22 1154 Amoxicillin (Amoxicillin) 500 Mg Capsule, 1,000 MG PO TID Prescribed by: CHRISTA KEATING on 03/01/22 1205 Ascorbate Calcium (Vitamin C) 500 Mg Tablet, 500 MG PO DAILY, (Reported) Entered as Reported by: NEYDA TRAN on 03/01/22 115 Cholecalciferol (Vitamin D3) (Vitamin D3) 25 Mcg (1000 Unit) Tablet, 25 MCG PO DAILY, (Reported) Entered as Reported by: NEYDA TRAN on 03/01/22 115 Clonidine HCl (Clonidine HCl) 0.1 Mg Tablet, 0.1 MG PO TID PRN for SBP >180 Prescribed by: CHRISTA KEATING on 03/01/22 1205 Levalbuterol HCl (Levalbuterol HCl) 1.25 Mg/3 Ml Vial.neb, 1.25 MG IH Q4H PRN for SHORTNESS OF BREATH, (Reported) Entered as Reported by: NEYDA TRAN on 03/01/22 115 Lorazepam (Ativan) 1 Mg Tablet, 1 MG PO Q6H PRN for ANXIETY, (Reported) Entered as Reported by: NEYDA TRAN on 03/01/22 115 Metoprolol Tartrate (Metoprolol Tartrate) 50 Mg Tablet, 50-100 MG PO BID, (Reported) Entered as Reported by: NEYDA TRAN on 03/01/22 1154 Exam Vital Signs Vital Signs Date Time Temp Pulse Resp B/P (MAP) Pulse Ox O2 Delivery O2 Flow Rate FiO2 01/11/23 13:44 91 Nasal Cannula 3.00 01/11/23 12:46 91 01/11/23 11:38 36.5 25 164/88 (113) Physical Exam Gen: No acute distress; A+O x 3, sitting comfortably in the bed Neck: soft supple, no cervical LAD Lungs: poor air movement in bilateral lung polo; occasional exp wheeze noted; no rales or rhonchi CV: nl s1/s2, no m-g-r, RRR Abd: soft nt nd, no HSM, + BS Ext: wwp, no c-c; trace edema in BLE 2+ DP and femoral pulses skin: no lesions rashes or ecchymoses are noted. Labs Laboratory Tests Test 01/10/23 18:00 01/10/23 18:09 01/10/23 18:37 01/10/23 21:36 Range/Units White Blood Count 17.0 H 4.3-11.0 10^3/uL Red Blood Count 6.22 H 3.80-5.11 10^6/uL Hemoglobin 19.6 H 11.5-16.0 g/dL Hematocrit 60 H 35-52 % Mean Corpuscular Volume 97 80-99 fL Mean Corpuscular Hemoglobin 32 25-34 pg Mean Corpuscular Hemoglobin Concent 33 32-36 g/dL Red Cell Distribution Width 16.2 H 10.0-14.5 % Platelet Count 386 130-400 10^3/uL Mean Platelet Volume 10.0 9.0-12.2 fL Immature Granulocyte % (Auto) 1 % Neutrophils (%) (Auto) 83 H 42-75 % Lymphocytes (%) (Auto) 5 L 12-44 % Monocytes (%) (Auto) 10 0-12 % Eosinophils (%) (Auto) 0 0-10 % Basophils (%) (Auto) 0 0-10 % Neutrophils # (Auto) 14.2 H 1.8-7.8 10^3/uL Lymphocytes # (Auto) 0.9 L 1.0-4.0 10^3/uL Monocytes # (Auto) 1.7 H 0.0-1.0 10^3/uL Eosinophils # (Auto) 0.0 0.0-0.3 10^3/uL Basophils # (Auto) 0.1 0.0-0.1 10^3/uL Immature Granulocyte # (Auto) 0.2 H 0.0-0.1 10^3/uL Neutrophils % (Manual) 87 % Lymphocytes % (Manual) 5 % Monocytes % (Manual) 8 % Blood Morphology Comment NORMAL Sodium Level 140 135-145 MMOL/L Potassium Level 4.4 3.6-5.0 MMOL/L Chloride Level 103 98-107 MMOL/L Carbon Dioxide Level 27 21-32 MMOL/L Anion Gap 10 5-14 MMOL/L Blood Urea Nitrogen 14 7-18 MG/DL Creatinine 0.84 0.60-1.30 MG/DL Estimat Glomerular Filtration Rate 72 BUN/Creatinine Ratio 17 Glucose Level 105 70-105 MG/DL Lactic Acid Level 1.68 1.29 0.50-2.00 MMOL/L Calcium Level 10.6 H 8.5-10.1 MG/DL Corrected Calcium 8.5-10.1 MG/DL Total Bilirubin 1.2 H 0.1-1.0 MG/DL Aspartate Amino Transf (AST/SGOT) 17 5-34 U/L Alanine Aminotransferase (ALT/SGPT) 22 0-55 U/L Alkaline Phosphatase 69 40-136 U/L Troponin I 0.032 H <0.028 NG/ML Total Protein 8.1 6.4-8.2 GM/DL Albumin 4.6 H 3.2-4.5 GM/DL SARS-CoV-2 RNA (RT-PCR) Not Detected Not Detecte Urine Color YELLOW Urine Clarity SL CLOUDY Urine pH 6.5 5-9 Urine Specific [place] 1.015 L 1.016-1.022 Urine Protein 2+ H NEGATIVE Urine Glucose (UA) NEGATIVE NEGATIVE Urine Ketones NEGATIVE NEGATIVE Urine Nitrite POSITIVE H NEGATIVE Urine Bilirubin NEGATIVE NEGATIVE Urine Urobilinogen 0.2 < = 1.0 MG/DL Urine Leukocyte Esterase 1+ H NEGATIVE Urine RBC (Auto) 2+ H NEGATIVE Urine RBC 10-25 H /HPF Urine WBC 10-25 H /HPF Urine Squamous Epithelial Cells 5-10 /HPF Urine Crystals NONE /LPF Urine Bacteria LARGE H /HPF Urine Casts PRESENT /LPF Urine Hyaline Casts RARE /LPF Urine Mucus NEGATIVE /LPF Urine Culture Indicated CULTURE PENDING Test 01/11/23 04:21 Range/Units White Blood Count 16.4 H 4.3-11.0 10^3/uL Red Blood Count 5.69 H 3.80-5.11 10^6/uL Hemoglobin 17.9 H 11.5-16.0 g/dL Hematocrit 55 H 35-52 % Mean Corpuscular Volume 96 80-99 fL Mean Corpuscular Hemoglobin 32 25-34 pg Mean Corpuscular Hemoglobin Concent 33 32-36 g/dL Red Cell Distribution Width 15.8 H 10.0-14.5 % Platelet Count 333 130-400 10^3/uL Mean Platelet Volume 10.1 9.0-12.2 fL Sodium Level 140 135-145 MMOL/L Potassium Level 4.0 3.6-5.0 MMOL/L Chloride Level 103 98-107 MMOL/L Carbon Dioxide Level 23 21-32 MMOL/L Anion Gap 14 5-14 MMOL/L Blood Urea Nitrogen 16 7-18 MG/DL Creatinine 0.84 0.60-1.30 MG/DL Estimat Glomerular Filtration Rate 72 BUN/Creatinine Ratio 19 Glucose Level 168 H 70-105 MG/DL Calcium Level 9.8 8.5-10.1 MG/DL Corrected Calcium 9.8 8.5-10.1 MG/DL Total Bilirubin 0.9 0.1-1.0 MG/DL Aspartate Amino Transf (AST/SGOT) 16 5-34 U/L Alanine Aminotransferase (ALT/SGPT) 20 0-55 U/L Alkaline Phosphatase 64 40-136 U/L Troponin I 0.080 H <0.028 NG/ML B-Type Natriuretic Peptide 133.2 H <100.0 PG/ML Total Protein 6.8 6.4-8.2 GM/DL Albumin 4.0 3.2-4.5 GM/DL Thyroid Stimulating Hormone (TSH) 0.41 0.35-4.94 UIU/ML Free Thyroxine 1.09 0.70-1.48 NG/DL A/P-Cardiology Plan Mrs. Parker is a 77-year-old female with a history of asthma hypertension supraventricular tachycardia GERD depression anxiety who presents for evaluation of shortness of breath for several days. ## SVT: Longstanding issue. Diagnosed greater than 15 years ago in [facility]. Patient takes metoprolol at home. In the past she has been noted to respond to metoprolol IV and diltiazem IV. At this time, her heart rates are in the 70s to 80s. -Continue with metoprolol -For any prolonged episodes, consider metoprolol 5-10mg IV x 1 - check TTE to ensure no structural etiologies for her tachycardia - minimize albuterol use; agree with xopenex - check TSH and Free T4 ## SOB: likely ashtma - check BNP - cont with anti-asthma regimen as per hospitalist ## HTN: BPs improved, but ranging 140-190s/80-110s - recommend clonidine administration (pt uses this for her home medication and is hesitant to try new meds) ## Disposition: LISE WATTERS MD Jan 11, 2023 10:07
[2023-01-11 11:38] VITALS: BP 164/88
[2023-01-11 20:00] VITALS: BP 189/107
[2023-01-11] MEDS: ENOXAPARIN 40 MG/0.4 ML (LOVENOX) SYR SC SCH (21:33)
[2023-01-11] MEDS: cefTRIAXone IV/IM 1,000 MG in NS (IVPB) 50 ML IV SCH (21:38)
[2023-01-12] VITALS (12 sets, daily range): BP systolic 126–196; BP diastolic 63–116
[2023-01-12] MEDS: NS IV 1000 ML 1,000 ML IV SCH ×3 (01:50→23:22)
[2023-01-12] MEDS: RT-LEVALBUTEROL (XOPENEX) 1.25 MG/3 ML NEB NON-FORMULARY INH SCH ×6 (02:19→22:12)
[2023-01-12] MEDS: methylPREDNISolone 125 MG (Solu-MEDROL) VIAL IVP SCH ×4 (02:32→20:38)
[2023-01-12] MEDS: hydrALAZINE (APESOLINE) 20 MG/ML VIAL IV PRN ×2 (02:45→15:59)
[2023-01-12] MEDS: LORazepam 1 MG (ATIVAN) TAB PO PRN ×3 (02:59→19:37)
[2023-01-12 04:21] LABS: HEMATOCRIT 56 % (35-52); HEMOGLOBIN 18.3 g/dL (11.5-16.0); MEAN CORPUSCULAR HEMOGLOBIN 32 pg (25-34); MEAN CORPUSCULAR HGB CONC 33 g/dL (32-36); MEAN CORPUSCULAR VOLUME 97 fL (80-99); MEAN PLATELET VOLUME 10.4 fL (9.0-12.2); PLATELET COUNT 386 10^3/uL (130-400); WHITE BLOOD COUNT 17.4 10^3/uL (4.3-11.0)
[2023-01-12 04:33] LABS: POTASSIUM 4.4 MMOL/L (3.6-5.0)
[2023-01-12 04:35] LABS: TOTAL PROTEIN 6.9 GM/DL (6.4-8.2)
[2023-01-12 04:37] LABS: BILIRUBIN,TOTAL 0.9 MG/DL (0.1-1.0)
[2023-01-12 04:39] LABS: CREATININE SERUM 0.85 MG/DL (0.60-1.30)
[2023-01-12 06:31] LABS: ABG BASE EXCESS 2.8 MMOL/L (-2.5-2.5); ABG OXYGEN SATURATION 97 % (94-100); ABG PCO2 46 MMHG (35-45); ABG PH 7.39 (7.37-7.43); ABG PO2 84 MMHG (79-93); ABG TCO2 28.8 MMOL/L (21.0-31.0)
[2023-01-12 06:32] LABS: ALLENS TEST YES-POS; INSPIRED O2 40%; PATIENT TEMP 36.8; VENTILATOR NO
[2023-01-12] MEDS: meTOprolol TARTRATE 50 MG (LOPRESSOR) TAB PO SCH ×3 (08:14→23:38)
[2023-01-12] MEDS: lisINopril 10 MG (PRINIVIL) TABLET PO SCH (08:14)
[2023-01-12] MEDS ORDERED: lisINopril 10 MG (PRINIVIL) TABLET PO SCH (09:00)
[2023-01-12] MEDS ORDERED: lisINopril 40 MG (PRINIVIL) TABLET PO SCH (09:00)
[2023-01-12] MEDS ORDERED: dilTIAZem120 MG (CARDIZEM CD) CAP PO SCH (09:00)
[2023-01-12] MEDS ORDERED: RT-LEVALBUTEROL (XOPENEX) 1.25 MG/3 ML NEB NON-FORMULARY INH PRN (09:15)
[2023-01-12] MEDS: DOCUSATE SODIUM 100 MG (COLACE) CAP PO SCH ×2 (09:30→20:49)
[2023-01-12] MEDS ORDERED: lisINopril 10 MG (PRINIVIL) TABLET PO NR ×2 (10:00→11:00)
--- NOTE | 2023-01-12 10:04 | Cardiology Progress Note ---
Subjective Date Seen by Provider: Jan 12, 2023 Time Seen by Provider: 08:45 Subjective/Events-last exam Patient notes worsened breathing overnight. Increased shortness of breath. Now on positive pressure ventilation. Blood pressures continue to be high. Up to 180s over 110s throughout the day yesterday. Troponin down trended from 0.08 to 0.05. Focused Exam Lactate Level 01/10/23 18:00: Lactic Acid Level 1.68 01/10/23 21:36: Lactic Acid Level 1.29 Objective-Cardiology Exam Last Set of Vital Signs Vital Signs 01/12/23 01/12/23 08:00 08:35 Temp 36.0 Pulse 95 Resp 25 B/P (MAP) 166/108 (127) Pulse Ox 99 O2 Delivery NIV Bilevel O2 Flow Rate 40.00 I&O Intake and Output 01/12/23 00:00 Intake Total 850 ml Output Total 650 ml Balance 200 ml Intake Oral 800 ml IV Total 50 ml Output Urine Total 650 ml # Voids 1 Other physical findings Gen: No acute distress; A+O x 3, sitting comfortably in the bed, BiPAP in place Neck: soft supple, no cervical LAD Lungs: poor air movement in bilateral lung polo; occasional exp wheeze noted; no rales or rhonchi CV: nl s1/s2, no m-g-r, RRR Abd: soft nt nd, no HSM, + BS Ext: wwp, no c-c; trace edema in BLE 2+ DP and femoral pulses skin: no lesions rashes or ecchymoses are noted. Results Lab Laboratory Tests 01/12/23 03:50 A/P-Cardiology Assessment/Plan Mrs. Kay is a 77-year-old female with a history of asthma hypertension supraventricular tachycardia GERD depression anxiety who presents for evaluation of shortness of breath for several days. SOB due to asthma. Known hx of SVT ## SVT: Diagnosed greater than 15 years ago in [facility]. Patient takes metoprolol at home. In the past she has been noted to respond to metoprolol IV and diltiazem IV. At this time, her heart rates are in the 70s to 80s. Telemetry demonstrates HR up to 180s. SVT that initiates with PAC and termniates with a non conduced p wave. ? AT vs AVnRT. - long standing issue for patient (she actually puts her head in a bucket of ice cold water to help it terminate- old school remedy) - can control with metop po; for longer episodes, consider Metop or Dilt IV - BNP mildlly elevated at 133; will hold on cardiac imaging for now. - Continue with metoprolol - For any prolonged episodes, consider metoprolol 5-10mg IV x 1 - minimize albuterol use; agree with xopenex - TSH and Free T4 within normal limits. - recommended possible use of Diltiazem instead of metoprolol, since metoprolol can worsen bronchoconstriction, pt states wants to talk to her PCP first about this change. ## SOB: likely ashtma; BNP mildly elevated at 133 - no furhter workup for now - cont with anti-asthma regimen as per hospitalist ## HTN: BPs improved, but ranging 160-180s/ 100-110s - pt hesitant to make too many changes to BP.- - she will only allow an increase to lisiniopril 20 QD - cont metop 50 - recommend clonidine administration (pt uses this for her home medication and is hesitant to try new meds); clonidine 0.1mg po Q8H prn systolics > 180 ## Troponinemia: - Tn 0.04 to 0.08, and down to 0.05. - likely demand in setting of HTN (233/144 on admission) and tachycardia. - no further Tn checks. LISE WATTERS MD Jan 12, 2023 10:04
--- NOTE | 2023-01-12 10:34 | Progress Note - Hospitalist ---
Subjective HPI/CC On Admission Date Seen by Provider: Jan 12, 2023 Patient is a 77-year-old female with past medical history of hypertension, SVT, asthma, anxiety who presented to the emergency department due to shortness of breath. States she has a long history of asthma and will frequently need rounds of steroids to help with this. She started feeling short of breath over the past few days called her primary care physician for this and was sent steroids. She had been compliant with those and had been using her inhaler "too much" and despite this continued to worsen. She presented to the emergency department because she had to use her son's oxygen to keep her oxygen levels up. He does complain of a cough though this is relatively unchanged from her baseline cough. In the emergency room she was found to be hypoxic with sats in the high 80s which resolved with nasal cannula. She was found to have an intermittent tachycardia though. There were unable to catch this on EKG though it appeared narrow complex per the emergency room. She was also incidentally found to have a urinary tract infection. She was admitted to the hospital for further management of her asthma and UTI and for cardiology consultation given her intermittent tachycardia. This morning she reports feeling somewhat better though was frustrated overnight due to it being hot in her room and not having her normal medicines but that did improve when she got an Ativan. She is concerned about why she needs oxygen. We discussed the pathophysiology of as thma and bronchospasm and that we will attempt to wean her off oxygen if able and continue to treat her with steroids and Xopenex. Subjective/Events-last exam Pt reports feeling "horrible" this morning. States overnight breathing worse and felt as if she needed BiPAP. Would like Xopenex more frequently. I confirmed with pharmacy increased dose is ok so changed to q4. RT reports she actually refused Xopenex overnight but she is specifically asking for it today so will increase. RN reports tachy with albuterol but only to 118 today instead of 180s like yesterday. Focused Exam Lactate Level 01/10/23 18:00: Lactic Acid Level 1.68 01/10/23 21:36: Lactic Acid Level 1.29 Objective Exam Vital Signs Vital Signs Date Time Temp Pulse Resp B/P (MAP) Pulse Ox O2 Delivery O2 Flow Rate FiO2 01/12/23 08:35 95 25 99 40.00 01/12/23 08:00 36.0 166/108 (127) NIV Bilevel Capillary Refill : Less Than 3 Seconds General Appearance: No Apparent Distress, Chronically ill Respiratory: Wheezing, Other (on BiPAP) Cardiovascular: Regular Rate, Rhythm, No Murmur Gastrointestinal: Normal Bowel Sounds, Soft Neurologic/Psychiatric: Alert, Oriented x3 Results/Procedures Lab Laboratory Tests 01/12/23 03:50 Patient resulted labs reviewed. Imaging: Reviewed Imaging Report Assessment/Plan Assessment and Plan Assess & Plan/Chief Complaint Acute hypoxic respiratory failure due to asthma exacerbation on BiPAP Continue Steroids Continue xopenex- increase frequency as above MAT protocol Wean oxygen as able Pulm consult in AM Sepsis due to UTI Continue IV abx Await cultures BC NGTD Urine cx pending Tachycardia Elevated troponin HTN has history of SVT and manages at home with metoprolol and diving reflex mechanisms Monitor on telemetry Cardiology consulted Troponin from 0.032-0.08-0.052 Cardizem started by cardiology, will try to get off metoprolol HCTZ for BP Hydralazine prn DVT ppx: Lovenox Diagnosis/Problems Diagnosis/Problems (1) Atrial tachycardia Status: Acute (2) Elevated troponin Status: Acute (3) UTI (urinary tract infection) Status: Acute Qualifiers: Urinary tract infection type: acute cystitis Hematuria presence: with hem aturia Qualified Codes: N30.01 - Acute cystitis with hematuria (4) Hypoxia Status: Acute (5) Tachyarrhythmia (6) Asthma exacerbation Status: Acute ARSLAN COHEN MD Jan 12, 2023 10:34
[2023-01-12] MEDS: IBUPROFEN 600 MG (MOTRIN) TAB PO PRN (12:11)
[2023-01-12] MEDS ORDERED: DexMEDEtomidine 250 ML DRIP 250 ML IV SCH (17:00)
[2023-01-12 17:44] LABS: ABG BASE EXCESS 1.2 MMOL/L (-2.5-2.5); ABG OXYGEN SATURATION 99 % (94-100); ABG PCO2 38 MMHG (35-45); ABG PH 7.44 (7.37-7.43); ABG PO2 103 MMHG (79-93); ABG TCO2 26.3 MMOL/L (21.0-31.0)
--- NOTE | 2023-01-12 17:44 | Diagnostic Imaging Report ---
INDICATION: Wheezing. COMPARISON: 01/10/2023. FINDINGS: Single frontal view of the chest demonstrates normal heart size and pulmonary vascularity. The lungs are well aerated and clear. No large pleural effusion or pneumothorax is seen. The visualized osseous structures show no acute abnormality. IMPRESSION: No acute cardiopulmonary process. Dictated by: Dictated on workstation # [id number]
[2023-01-12 17:45] LABS: INSPIRED O2 40; PATIENT TEMP 36.5; VENTILATOR NO
--- NOTE | 2023-01-12 17:54 | Tele-ICU Progress Note ---
Subjective Date Seen by a Provider: Jan 12, 2023 Subjective/Events-last exam (Tele-ICU Physician , consultation as per request of PCP Service provided via interactive audio and video telecommunications E-CARE system to a patient admitted to ICU bed in [facility]. Available chart/ vitals / labs / Images reviewed H&P is from ER notes Patient's information available about PMH, Shx, Fhx allergy reviewed inEMR. ROS as per chart and RN report HPI: 77 y/o F hx of HTN, SVT, asthma, anxiety presented to ED with c/o SOB. Initially admitted to general floor however given worsening SOB transferred to MICU for Bipap. No hx of hospitalizations intubations for asthma. Noted in ER was requiring son's oxygen to keep her O2 up. Labs in ED notable for UTI and she was started on ceftriaxone. Cardiology was consulted for narrow complex tachycardia noted on ECG. Initial CXR showed no evidence of infiltrate and follow up CT chest was relatively unremkarble except for micronodule. Subj: Pt c/o SOB. Currently on BiPAP. Notable anxiety. Neuro: A&OX3 on Bipap. ABG this AM stable. Will order precedex gtt. Pulm: Asthma exacerbation. Will Cont xopenex and will add ipatroprium. Personally reviewd CT chest. No consolidation, alternative source of hypoxemia CV: SVT. Improving HR initially up to 180s now improving. Cardiology following. Cont metop. Renal: stable Lines : periph , (Central Line Necessity Reviewed) Diane: Nutrition: HH diet Discussed with RN to reach out if any questions or concerns A total of 31 minutes of critical care time was devoted to this patient today, required to treat and/or prevent further deterioration of critical care condition ( as above Sepsis Event Evaluation Height, Weight, BMI Height: 5'3.00" Weight: 140lbs. 0.0oz. 63.521807do; 22.99 BMI Method:Stated Focused Exam Lactate Level 01/10/23 18:00: Lactic Acid Level 1.68 01/10/23 21:36: Lactic Acid Level 1.29 Exam Exam Patient acknowledged, consented, and participated in this virtual visit which was conducted using real time audio/video Vital Signs Date Time Temp Pulse Resp B/P (MAP) Pulse Ox O2 Delivery O2 Flow Rate FiO2 01/12/23 17:23 112 195/114 01/12/23 17:00 96 24 205/108 (140) 95 NIV CPAP 40.00 01/12/23 16:00 99 23 181/105 (130) 96 Nasal Cannula 6.00 01/12/23 16:00 36.2 100 22 181/105 (130) 95 NIV Bilevel 40.00 01/12/23 14:26 93 21 94 40.00 01/12/23 13:00 103 01/12/23 12:00 36.3 99 22 188/104 (132) 95 Nasal Cannula 6.00 01/12/23 11:00 84 19 96 40.00 01/12/23 08:35 95 25 99 40.00 01/12/23 08:00 36.0 96 22 166/108 (127) 94 NIV Bilevel 01/12/23 07:22 92 22 94 40.00 01/12/23 07:00 91 01/12/23 04:29 36.8 108 19 192/104 (133) 97 NIV Bilevel 40.00 01/12/23 04:24 110 21 96 40.00 01/12/23 01:00 77 01/12/23 00:00 36.4 81 21 175/103 (127) 93 Nasal Cannula 3.00 01/11/23 21:16 93 Nasal Cannula 3.00 01/11/23 20:00 36.1 129 27 189/107 (134) 95 Nasal Cannula 3.00 01/11/23 20:00 93 Nasal Cannula 3.00 01/11/23 19:00 124 I & O 01/12/23 07:00 Intake Total 1900 ml Output Total 450 ml Balance 1450 ml Height & Weight Height: 5'3.00" Weight: 140lbs. 0.0oz. 63.955200va; 22.99 BMI Method:Stated General Appearance: No Apparent Distress Respiratory: Decreased Breath Sounds, Wheezing (expiratory) Cardiovascular: Regular Rate, Rhythm, No Murmur, Normal Peripheral Pulses Capillary Refill: Less Than 3 Seconds Gastrointestinal: normal bowel sounds, non tender, soft, no organomegaly, no pulsatile mass Neurologic/Psychiatric: Alert, Oriented x3, Normal Mood/Affect Results Lab Laboratory Tests 01/10/23 18:00 01/11/23 04:21 01/12/23 03:50 Assessment/Plan Assessment/Plan . HUGO CHAVEZ MD Jan 12, 2023 17:54
[2023-01-12] MEDS: ACETAMINOPHEN 325 MG TABLET PO PRN (19:36)
[2023-01-12] MEDS ORDERED: RT-IPRATROPIUM (ATROVENT) 0.5MG/2.5ML AMP IH ONE (19:40)
[2023-01-12] MEDS: cefTRIAXone IV/IM 1,000 MG in NS (IVPB) 50 ML IV SCH (20:38)
[2023-01-12] MEDS: ENOXAPARIN 40 MG/0.4 ML (LOVENOX) SYR SC SCH (20:49)
[2023-01-12] MEDS: RT-IPRATROPIUM (ATROVENT) 0.5MG/2.5ML AMP IH SCH ×2 (22:08→22:12)
[2023-01-13] MEDS: RT-IPRATROPIUM (ATROVENT) 0.5MG/2.5ML AMP IH SCH ×6 (02:00→21:19)
[2023-01-13 02:01] VITALS: BP 123/62
[2023-01-13] MEDS: RT-LEVALBUTEROL (XOPENEX) 1.25 MG/3 ML NEB NON-FORMULARY INH SCH ×6 (02:01→21:19)
[2023-01-13 04:25] LABS: HEMATOCRIT 50 % (35-52); HEMOGLOBIN 15.9 g/dL (11.5-16.0); MEAN CORPUSCULAR HEMOGLOBIN 31 pg (25-34); MEAN CORPUSCULAR HGB CONC 32 g/dL (32-36); MEAN CORPUSCULAR VOLUME 98 fL (80-99); MEAN PLATELET VOLUME 10.2 fL (9.0-12.2); PLATELET COUNT 299 10^3/uL (130-400); WHITE BLOOD COUNT 16.6 10^3/uL (4.3-11.0)
[2023-01-13] MEDS: methylPREDNISolone 125 MG (Solu-MEDROL) VIAL IVP SCH ×2 (04:44→08:58)
[2023-01-13 04:49] LABS: ALBUMIN 3.4 GM/DL (3.2-4.5); BILIRUBIN,TOTAL 0.6 MG/DL (0.1-1.0); CALCIUM 8.6 MG/DL (8.5-10.1); CREATININE SERUM 0.79 MG/DL (0.60-1.30); POTASSIUM 4.3 MMOL/L (3.6-5.0); TOTAL PROTEIN 5.8 GM/DL (6.4-8.2)
[2023-01-13] MEDS: ACETAMINOPHEN 325 MG TABLET PO PRN ×2 (04:51→09:18)
[2023-01-13] MEDS: LORazepam 1 MG (ATIVAN) TAB PO PRN ×4 (05:17→20:19)
[2023-01-13 06:59] VITALS: BP 128/72
--- NOTE | 2023-01-13 08:03 | Physician Query Clarification ---
PQ-Further Specificity Admission/Discharge Admission Date: Jan 10, 2023 at 20:51 Discharge Date: Dr. Velarde, The medical record reflects the following clinical scenario: History/Risk Factors: Sepsis, UTI, asthma AE, SVT, COPD, HTN Clinical Findings: Tn 0.04 to 0.08, likely demand in setting of HTN (233/144 on admission) and tachycardia. Treatment: Monitor troponin Question: Can you further specify the elevated troponin per the clinical indicators above? Please document a response in the Progress Notes or Discharge Summary. 1. UT type 2 2. Troponinemia not otherwise specified 3. Other, with explanation of the clinical findings. 4. Clinically undetermined, no explanation for the clinical findings. In responding to this query, please exercise your independent professional arabella gment. The purpose of this communication is to more accurately reflect the complexity of your patients condition. The fact that a question is asked does not imply that any particular answer is desired or expected. Thank you for your timely response to this clarification. Requestors name: Melissa THIS PHYSICIAN QUERY FORM IS A PERMANENT PART OF THE MEDICAL RECORD MELISSA ESPINOZA Jan 13, 2023 08:03
--- NOTE | 2023-01-13 08:55 | Progress Note - Cardiology ---
Cardiology SOAP Progress Note Objective: I&O/Vital Signs 01/17/23 01/17/23 01/17/23 01/17/23 02:00 02:50 02:57 03:00 Pulse 76 80 79 Resp 22 20 18 B/P (MAP) 137/75 (95) 142/73 (96) Pulse Ox 93 96 94 O2 Delivery NIV Bilevel NIV Bilevel O2 Flow Rate 50.00 60.00 50.00 50.00 01/17/23 01/17/23 01/17/23 01/17/23 04:00 04:00 05:00 06:00 Pulse 79 82 87 Resp 19 B/P (MAP) 148/75 (99) 142/78 (99) 141/73 (95) Pulse Ox 90 93 92 93 O2 Delivery NIV Bilevel NIV Bilevel NIV Bilevel NIV Bilevel O2 Flow Rate 50.00 50.00 50.00 FiO2 50 01/17/23 01/17/23 01/17/23 01/17/23 07:00 07:00 07:00 08:00 Temp 36.4 Pulse 105 102 101 Resp 18 B/P (MAP) 147/69 (96) Pulse Ox 94 94 O2 Delivery NIV Bilevel O2 Flow Rate 50.00 50.00 01/17/23 01/17/23 01/17/23 01/17/23 08:00 08:00 09:00 09:39 Temp 36.4 Pulse 109 102 102 Resp 23 B/P (MAP) 152/82 (103) 136/94 (108) 136/94 Pulse Ox 93 92 93 93 O2 Delivery NIV Bilevel NIV Bilevel NIV Bilevel NIV Bilevel O2 Flow Rate 50.00 50.00 FiO2 50 50 01/17/23 00:00 Intake Total 930 ml Output Total 1550 ml Balance -620 ml Weight (Pounds): 140 Weight (Ounces): 0.0 Weight (Calculated Kilograms): 63.602524 Results/Procedures: Labs Laboratory Tests 01/17/23 03:40: White Blood Count 30.6*H, Red Blood Count 5.62H, Hemoglobin 17.7H, Hematocrit 54H, Mean Corpuscular Volume 97, Mean Corpuscular Hemoglobin 32, Mean Corpu scular Hemoglobin Concent 33, Red Cell Distribution Width 15.5H, Platelet Count 151, Mean Platelet Volume 11.2, Sodium Level 145, Potassium Level 3.5L, Chloride Level 94L, Carbon Dioxide Level 37H, Anion Gap 14, Blood Urea Nitrogen 38H, Creatinine 0.93, Estimat Glomerular Filtration Rate 63, BUN/Creatinine Ratio 41, Glucose Level 155H, Calcium Level 9.7, Corrected Calcium 9.9, Phosphorus Level 4.0, Magnesium Level 2.5H, Total Bilirubin 1.6H, Aspartate Amino Transf ( T/SGOT) 22, Alanine Aminotransferase (ALT/SGPT) 61H, Alkaline Phosphatase 64, Total Protein 6.5, Albumin 3.7 01/17/23 08:12: Lactic Acid Level 1.99 Microbiology 01/10/23 Urine Culture - Final, Complete Mixed Bacterial Smitha 01/10/23 Blood Culture - Final, Complete No growth A/P: Assessment: SVT: Diagnosed greater than 15 years ago in [facility]. Patient takes metoprolol at home. In the past she has been noted to respond to metoprolol IV and diltiazem IV. Telemetry demonstrates HR up to 180s. SVT that initiates with PAC and termniates with a non conduced p wave. ? AT vs AVnRT. - long standing issue for patient (she actually puts her head in a bucket of ice cold water to help it terminate- old school remedy) - can control with metop po; for longer episodes, consider Metop or Dilt IV - BNP mildlly elevated at 133; will hold on cardiac imaging for now. - Continue with metoprolol - For any prolonged episodes, consider metoprolol 5-10mg IV x 1 - minimize albuterol use; agree with xopenex - TSH and Free T4 within normal limits. - recommended possible use of Diltiazem instead of metoprolol, since metoprolol can worsen bronchoconstriction, pt states wants to talk to her PCP first about this change. SOB: likely ashtma; BNP mildly elevated at 133 - no further workup for now - cont with anti-asthma regimen as per hospitalist HTN: BPs improved, but ranging 160-180s/ 100-110s - pt hesitant to make too many changes to BP.- - she will only allow an increase to lisiniopril 20 QD - cont metop 50 - recommend clonidine administration (pt uses this for her home medication and is hesitant to try new meds); clonidine 0.1mg po Q8H prn systolics > 180 Mildly elevated troponin - likely Type 2 [place] secondary to uncontrolled HTN and tachycardia - Tn 0.04 to 0.08, and down to 0.05. - likely demand in setting of HTN (233/144 on admission) and tachycardia. DREA TINSLEY [facility] Jan 13, 2023 08:55
[2023-01-13] MEDS: meTOprolol TARTRATE 50 MG (LOPRESSOR) TAB PO SCH ×2 (08:57→20:19)
[2023-01-13] MEDS: DOCUSATE SODIUM 100 MG (COLACE) CAP PO SCH ×2 (08:58→20:19)
[2023-01-13] MEDS: lisINopril 20 MG (PRINIVIL) TABLET PO SCH (08:58)
[2023-01-13] MEDS: NS IV 1000 ML 1,000 ML IV SCH (09:19)
[2023-01-13] MEDS ORDERED: lisINopril 10 MG (PRINIVIL) TABLET PO NR (10:00)
[2023-01-13] MEDS ORDERED: CLN.1T PO (10:03)
[2023-01-13] MEDS ORDERED: LISI10TA25 PO (10:03)
--- NOTE | 2023-01-13 12:03 | Tele-ICU Progress Note ---
Subjective Date Seen by a Provider: Jan 13, 2023 Time Seen by a Provider: 12:02 Subjective/Events-last exam (Tele-ICU Physician , Progress Note ) Service provided via interactive audio and video telecommunications E-CARE system to a patient admitted to ICU bed in [facility]. Patient is seen today due to persistent need of ICU care Available chart/ vitals / labs / Images reviewed Video assessment done using teleICU camera, rest of exam as per RN Discussed with RN Events overnight : Afebrile hemodynamically stable Respiratory - I/O = ++ Drips: Pressors- no Hospital course: 77 y/o F hx of HTN, SVT, asthma, anxiety presented to ED with c/o SOB. Initially admitted to general floor however given worsening SOB transferred to MICU for Bipap. No hx of hospitalizations intubations for asthma. Noted in ER was requiring son's oxygen to keep her O2 up. Labs in ED notable for UTI and she was started on ceftriaxone. Cardiology was consulted for narrow complex tachycardia noted on ECG. Initial CXR showed no evidence of infiltrate and follow up CT chest was relatively unremkarble except for micronodule. A/P Acute resp failure ( [facility] 01/10 - neg for pe or pna ) - BIPAP 18/10 40 % rr 35 tv500 MV 18 L - seems mostly for SOB assocoated with anxiety - for breakfast on 5 l NC - breahting comfortably while eating , in no distress AECOPD - nebs , steroids - dose as per PCP SVT - - as per cardiology Elev trop - likely demand - as per cardiology uncontrolled HTN -(233/144 on admission) - as per cardiology UTI - cont abx - ceftriaxone cx pending Hemoconcentration/ eleb Hb 19.6 on admission - presumed due to chronic hypoxemia if no other Dx withexplanation - to re-eval Lines : , (Central Line Necessity Reviewed) Diane: void OG: Nutrition: Analgesia: Anxiety/ delirium VTE Prophylaxis: lovenox - REFUSING Stress Ulcer Prophylaxis: Plans in collaboration with bedside consultants and IM MDs. Discussed with RN to reach out if any questions or concerns Case and care daily discussed on multidisciplinary rounds ( RN, PharmD, Sewing Supervisor , Respiratory Therapy, ditch worker ) A total of 25 minutes of critical care time was devoted to this patient today, required to treat and/or prevent further deterioration of critical care condition ( as above ) . I am remotely monitoring this patient from another state. I am unable to do the bedside exam, and history/physical and pertinent information is taken from other notes in the computer and bedside staff. Sepsis Event Evaluation Height, Weight, BMI Height: 5'3.00" Weight: 140lbs. 0.0oz. 63.515292bf; 22.80 BMI Method:Stated Focused Exam Lactate Level 01/10/23 18:00: Lactic Acid Level 1.68 01/10/23 21:36: Lactic Acid Level 1.29 Exam Exam Patient acknowledged, consented, and participated in this virtual visit which was conducted using real time audio/video Vital Signs Date Time Temp Pulse Resp B/P (MAP) Pulse Ox O2 Delivery O2 Flow Rate FiO2 01/13/23 11:00 78 16 175/100 (125) 94 Nasal Cannula 5.00 01/13/23 10:24 93 Nasal Cannula 6.00 01/13/23 10:00 74 21 173/84 (113) 93 Nasal Cannula 5.00 01/13/23 09:57 Nasal Cannula 5.00 01/13/23 09:00 89 19 178/106 (130) 95 NIV Bilevel 40.00 01/13/23 08:00 82 22 164/94 (117) 96 NIV Bilevel 40.00 01/13/23 07:40 97 NIV Bilevel 40 01/13/23 07:18 60 01/13/23 07:00 66 18 124/67 (86) 96 NIV Bilevel 40.00 01/13/23 06:59 61 18 95 40.00 01/13/23 06:00 80 19 144/72 (96) 94 NIV Bilevel 40.00 01/13/23 05:00 85 18 149/89 (109) 96 NIV Bilevel 40.00 01/13/23 04:00 74 25 139/74 (95) 98 NIV Bilevel 40.00 01/13/23 04:00 98 NIV Bilevel 40 01/13/23 03:00 60 18 118/64 (82) 96 NIV Bilevel 40.00 01/13/23 02:01 57 18 97 40.00 01/13/23 02:00 68 18 123/65 (84) 97 NIV Bilevel 40.00 01/13/23 01:00 58 18 104/63 (77) 97 NIV Bilevel 40.00 01/13/23 01:00 60 01/13/23 00:00 87 18 139/76 (97) 91 NIV Bilevel 40.00 01/13/23 00:00 93 NIV Bilevel 40 01/12/23 23:23 107 153/108 01/12/23 23:00 107 23 155/86 (109) 96 NIV Bilevel 40.00 01/12/23 22:55 40.00 01/12/23 22:45 120 183/99 01/12/23 22:12 94 20 94 35.00 01/12/23 22:00 92 19 126/63 (84) 94 NIV Bilevel 40.00 01/12/23 21:23 83 102/50 01/12/23 21:00 82 18 124/64 (84) 94 NIV Bilevel 40.00 01/12/23 20:37 83 102/50 01/12/23 20:00 89 19 133/73 (93) 91 NIV Bilevel 40.00 01/12/23 20:00 93 NIV Bilevel 35 01/12/23 19:42 36.2 01/12/23 19:00 96 21 166/77 (106) 94 NIV Bilevel 40.00 01/12/23 19:00 100 01/12/23 18:43 93 22 95 40.00 01/12/23 18:25 98 145/85 01/12/23 18:00 101 23 158/83 (108) 93 NIV Bilevel 40.00 01/12/23 17:55 101 177/75 01/12/23 17:23 112 195/114 01/12/23 17:00 96 24 205/108 (140) 95 NIV CPAP 40.00 01/12/23 16:00 99 23 181/105 (130) 96 Nasal Cannula 6.00 01/12/23 16:00 36.2 100 22 181/105 (130) 95 NIV Bilevel 40.00 01/12/23 15:40 94 NIV Bilevel 40 01/12/23 14:26 93 21 94 40.00 01/12/23 13:00 103 I & O 01/13/23 07:00 Intake Total 1800 ml Output Total 0 ml Balance 1800 ml Height & Weight Height: 5'3.00" Weight: 140lbs. 0.0oz. 63.720868rm; 22.80 BMI Method:Stated General Appearance: No Apparent Distress Respiratory: Decreased Breath Sounds, Wheezing (expiratory) Cardiovascular: Regular Rate, Rhythm, No Murmur, Normal Peripheral Pulses Capillary Refill: Less Than 3 Seconds Gastrointestinal: normal bowel sounds, non tender, soft, no organomegaly, no pulsatile mass Neurologic/Psychiatric: Alert, Oriented x3, Normal Mood/Affect Results Lab Laboratory Tests 01/12/23 03:50 01/13/23 03:50 Assessment/Plan Assessment/Plan 1 LETICIA KAPADIA MD Jan 13, 2023 12:03
--- NOTE | 2023-01-13 12:30 | Progress Note - Cardiology ---
Cardiology SOAP Progress Note Subjective: Shortness of breath has been worse Gen weakness and malaise present No focal weakness No cp or palp or syncope No swelling No n/v/d Objective: I&O/Vital Signs 01/13/23 01/13/23 01/13/23 01/13/23 01:00 01:00 02:00 02:01 Pulse 60 58 68 57 Resp 18 18 18 B/P (MAP) 104/63 (77) 123/65 (84) Pulse Ox 97 97 97 O2 Delivery NIV Bilevel NIV Bilevel O2 Flow Rate 40.00 40.00 40.00 01/13/23 01/13/23 01/13/23 01/13/23 03:00 04:00 04:00 05:00 Pulse 60 74 85 Resp 18 25 18 B/P (MAP) 118/64 (82) 139/74 (95) 149/89 (109) Pulse Ox 96 98 98 96 O2 Delivery NIV Bilevel NIV Bilevel NIV Bilevel NIV Bilevel O2 Flow Rate 40.00 40.00 40.00 FiO2 40 01/13/23 01/13/23 01/13/23 01/13/23 06:00 06:59 07:00 07:18 Pulse 80 61 66 60 Resp 19 18 18 B/P (MAP) 144/72 (96) 124/67 (86) Pulse Ox 94 95 96 O2 Delivery NIV Bilevel NIV Bilevel O2 Flow Rate 40.00 40.00 40.00 01/13/23 01/13/23 01/13/23 01/13/23 07:40 08:00 09:00 09:57 Pulse 82 89 Resp 22 19 B/P (MAP) 164/94 (117) 178/106 (130) Pulse Ox 97 96 95 O2 Delivery NIV Bilevel NIV Bilevel NIV Bilevel Nasal Cannula O2 Flow Rate 40.00 40.00 5.00 FiO2 40 01/13/23 01/13/23 01/13/23 01/13/23 10:00 10:24 11:00 12:00 Temp 36.5 Pulse 74 78 Resp 21 16 B/P (MAP) 173/84 (113) 175/100 (125) Pulse Ox 93 93 94 O2 Delivery Nasal Cannula Nasal Cannula Nasal Cannula O2 Flow Rate 5.00 6.00 5.00 01/13/23 01/13/23 12:05 12:13 Pulse 87 88 Resp 21 B/P (MAP) 162/82 (108) Pulse Ox 93 O2 Delivery Nasal Cannula O2 Flow Rate 5.00 01/13/23 00:00 Intake Total 1700 ml Output Total 0 ml Balance 1700 ml Weight (Pounds): 140 Weight (Ounces): 0.0 Weight (Calculated Kilograms): 63.626287 Constitutional: AAO x 3, well-developed, well-nourished, other (on BiPAP) Respiratory: accessory muscle use, chest expansion is symmetric, chest is bilaterally symmetric, rhonchi, wheezing Cardiovascular: regular rate-rhythm, S1 and S2, systolic murmur (soft CAMRYN at card base) Gastrointestional: No tender; soft; No guarding, No rebound; audible bowel sounds Extremities: No clubbing, No cyanosis, No significant edema Neurologic/Psychiatric: oriented x 3, other (moves all limbs equally) Skin: No rash on exposed areas, No ulcerations on exposed areas Results/Procedures: Labs Laboratory Tests 01/12/23 17:35: Blood Gas Puncture Site LEFT BRACH, Blood Gas Patient Temperature 36.5, Arterial Blood pH 7.44H, Arterial Blood Partial Pressure CO2 38, Arterial Blood Partial Pressure O2 103H, Arterial Blood HCO3 25, Arterial Blood Total CO2 26.3, Arterial Blood Oxygen Saturation 99, Arterial Blood Base Excess 1.2, Elvis Test NA, Blood Gas Ventilator Setting NO, Blood Gas Inspired Oxygen 40 01/13/23 03:50: White Blood Count 16.6H, Red Blood Count 5.07, Hemoglobin 15.9, Hematocrit 50, Mean Corpuscular Volume 98, Mean Corpuscular Hemoglobin 31, Mean Corpuscular Hemoglobin Concent 32, Red Cell Distribution Width 16.0H, Platelet Count 299, Mean Platelet Volume 10.2, Sodium Level 142, Potassium Level 4.3, Chloride Level 111H, Carbon Dioxide Level 23, Anion Gap 8, Blood Urea Nitrogen 29H, Creatinine 0.79, Estimat Glomerular Filtration Rate 77, BUN/Creatinine Ratio 37, Glucose Level 139H, Calcium Level 8.6, Corrected Calcium 9.1, Magnesium Level 2.2, Total Bilirubin 0.6, Aspartate Amino Transf (AST/SGOT) 21, Alanine Aminotransferase (ALT/SGPT) 21, Alkaline Phosphatase 46, Total Protein 5.8L, Albumin 3.4 Microbiology 01/10/23 Urine Culture - Final, Complete Mixed Bacterial Smitha 01/10/23 Blood Culture - Preliminary, Resulted No growth Laboratory Tests 01/12/23 03:50 01/13/23 03:50 A/P: Assessment: SVT: - Diagnosed greater than 15 years ago in [facility]. - AVRT vs AVnRT (terminated by immersing her head in a bucket of ice cold water) - TSH and Free T4 within normal limits. BNP mildlly elevated at 133 - likely related to exac of asthma and PSVT - Echo on 01/13/23: moderate concentric hypertrophy. Systolic function is hyperdynamic. The estimated ejection fraction is 65-70%. Grade 1 diastolic dysfunction. PASP could not be estimated SOB: likely ashtma - managed by the [facility] sv[facility] HTN: not well controlled Mildly elevated troponin - likely Type 2 [place] secondary to HTN (233/144 on admission) and tachycardia and asthma exacerbation Plan: * reduce bb due to asthma and reactive airways * add calcium channel jean to control SVT * minimize albuterol use; agree with xopenex * echo (done and reported above) * monitor labs closely * I discussed her case with Dr Velarde who had been seeing her in card consult over the weekend ELINA STEPHENS MD FACP FAC CCDS Jan 13, 2023 12:30
--- NOTE | 2023-01-13 13:25 | Progress Note - Hospitalist ---
CHEYENNE COELLO 01/13/23 1325: Subjective HPI/CC On Admission Date Seen by Provider: Jan 13, 2023 Patient is a 77-year-old female with past medical history of hypertension, SVT, asthma, anxiety who presented to the emergency department due to shortness of breath. States she has a long history of asthma and will frequently need rounds of steroids to help with this. She started feeling short of breath over the past few days called her primary care physician for this and was sent steroids. She had been compliant with those and had been using her inhaler "too much" and despite this continued to worsen. She presented to the emergency department because she had to use her son's oxygen to keep her oxygen levels up. He does complain of a cough though this is relatively unchanged from her baseline cough. In the emergency room she was found to be hypoxic with sats in the high 80s which resolved with nasal cannula. She was found to have an intermittent tachycardia though. There were unable to catch this on EKG though it appeared narrow complex per the emergency room. She was also incidentally found to have a urinary tract infection. She was admitted to the hospital for further management of her asthma and UTI and for cardiology consultation given her intermittent tachycardia. This morning she reports feeling somewhat better though was frustrated overnight due to it being hot in her room and not having her normal medicines but that did improve when she got an Ativan. She is concerned about why she needs oxygen. We discussed the pathophysiology of asthma and bronchospasm and that we will attempt to wean her off oxygen if able and continue to treat her with steroids and Xopenex. Subjective/Events-last exam Pt was seen and assessed today. This morning was still on BiPAP. Pt stated this morning that she was doing horrible and couldn't breath well. Per nurse pt was refusing medication during her hospital course. Pt denies pain, N/V/D, and chest pain. Review of Systems General: No Chills Pulmonary: Dyspnea Cardiovascular: No: Chest Pain Gastrointestinal: No: Nausea, Vomiting, Diarrhea Focused Exam Lactate Level 01/10/23 18:00: Lactic Acid Level 1.68 01/10/23 21:36: Lactic Acid Level 1.29 Objective Exam Vital Signs Vital Signs Date Time Temp Pulse Resp B/P (MAP) Pulse Ox O2 Delivery O2 Flow Rate FiO2 01/13/23 12:13 88 21 162/82 (108) 93 Nasal Cannula 5.00 01/13/23 12:00 36.5 01/13/23 07:40 40 Capillary Refill : Less Than 3 Seconds General Appearance: No Apparent Distress Respiratory: Chest Non Tender; No No Accessory Muscle Use, No No Respiratory Distress; Wheezing Cardiovascular: Regular Rate, Rhythm, No Murmur, Normal Peripheral Pulses Gastrointestinal: Normal Bowel Sounds, Non Tender, Soft Neurologic/Psychiatric: Alert Skin: Normal Color, Warm/Dry Results/Procedures Lab Laboratory Tests 01/13/23 03:50 Patient resulted labs reviewed. Imaging: Reviewed Imaging Report Assessment/Plan Assessment and Plan Assess & Plan/Chief Complaint Acute on Chronic Hypoxic Respiratory Failure Asthma Exacerbation Stopped BiPAP; Breathing Improved Continue Steroids Continue xopenex MAT protocol Wean oxygen as able SVT Elevated Troponin HTN Tachycardia Cardiology Following Reduce beta jean due to asthma and reactive airways Add calcium channel jean to control SVT Minimize albuterol use ECHO: Normal Ejection Fraction; Concentric Hypertrophy UTI Non-conclusive results from culture Continue Antibiotics CHRISTA KEATING MD 01/13/23 1605: Subjective HPI/CC On Admission Time Seen by Provider: 10:30 Assessment/Plan Assessment and Plan Assess & Plan/Chief Complaint Continue steroids and breathing treatments. Decreasing dose. BiPAP as needed. TeleICU following, appreciate assistance. Heart rate improved, Cardiology following. Critical Care: Critically Ill Patient Diagnosis/Problems Diagnosis/Problems (1) Acute respiratory failure with hypoxia Status: Acute (2) Asthma exacerbation Status: Acute (3) Atrial tachycardia Status: Acute (4) Elevated troponin Status: Acute (5) HTN (hypertension) Status: Acute Supervisory-Addendum Brief Verification & Attestation Participated in pt care: history, MDM, physical Personally performed: exam, history, MDM, supervision of care Care discussed with: Medical Student Procedures: n/a Results interpretation: Verified all documentation A medical student performed and documented this service in my presence. I reviewed and verified all information documented by the medical student and made modifications to such information, when appropriate. I personally performed the physical exam and medical decision making. CHEYENNE COELLO Jan 13, 2023 13:25 CHRISTA KEATING MD Jan 13, 2023 16:05
[2023-01-13] MEDS: hydrALAZINE (APESOLINE) 20 MG/ML VIAL IV PRN (17:25)
[2023-01-13] MEDS: methylPREDNISolone 40 MG/ML (Solu-MEDROL) VIAL IVP SCH (17:25)
[2023-01-13 18:46] VITALS: BP 166/82
[2023-01-13] MEDS: cefTRIAXone IV/IM 1,000 MG in NS (IVPB) 50 ML IV SCH (20:18)
[2023-01-13] MEDS: ENOXAPARIN 40 MG/0.4 ML (LOVENOX) SYR SC SCH (20:21)
[2023-01-13] MEDS: IBUPROFEN 600 MG (MOTRIN) TAB PO PRN (20:33)
[2023-01-14] MEDS: methylPREDNISolone 40 MG/ML (Solu-MEDROL) VIAL IVP SCH ×3 (00:41→17:13)
[2023-01-14] MEDS: RT-LEVALBUTEROL (XOPENEX) 1.25 MG/3 ML NEB NON-FORMULARY INH SCH ×6 (02:32→22:08)
[2023-01-14] MEDS: RT-IPRATROPIUM (ATROVENT) 0.5MG/2.5ML AMP IH SCH ×6 (02:32→22:08)
[2023-01-14 02:33] VITALS: BP 153/72
[2023-01-14 03:41] LABS: HEMATOCRIT 49 % (35-52); MEAN CORPUSCULAR HEMOGLOBIN 32 pg (25-34); MEAN CORPUSCULAR HGB CONC 32 g/dL (32-36); MEAN CORPUSCULAR VOLUME 98 fL (80-99); MEAN PLATELET VOLUME 10.3 fL (9.0-12.2); PLATELET COUNT 294 10^3/uL (130-400); WHITE BLOOD COUNT 15.7 10^3/uL (4.3-11.0)
[2023-01-14 04:16] LABS: ALBUMIN 3.4 GM/DL (3.2-4.5); BILIRUBIN,TOTAL 0.6 MG/DL (0.1-1.0); CALCIUM 9.1 MG/DL (8.5-10.1); CREATININE SERUM 0.82 MG/DL (0.60-1.30); POTASSIUM 4.2 MMOL/L (3.6-5.0); TOTAL PROTEIN 5.8 GM/DL (6.4-8.2)
[2023-01-14 04:38] LABS: MAGNESIUM 2.5 MG/DL (1.6-2.4); PHOSPHORUS 2.9 MG/DL (2.3-4.7)
[2023-01-14 06:55] VITALS: BP 138/75
[2023-01-14] MEDS: meTOprolol TARTRATE 50 MG (LOPRESSOR) TAB PO SCH ×2 (08:17→20:20)
[2023-01-14] MEDS: lisINopril 20 MG (PRINIVIL) TABLET PO SCH (08:17)
[2023-01-14] MEDS: LORazepam 1 MG (ATIVAN) TAB PO PRN ×2 (08:27→14:36)
[2023-01-14] MEDS: ACETAMINOPHEN 325 MG TABLET PO PRN (08:28)
[2023-01-14] MEDS: DOCUSATE SODIUM 100 MG (COLACE) CAP PO SCH ×2 (08:28→20:20)
--- NOTE | 2023-01-14 09:37 | Diagnostic Imaging Report ---
Indication: Respiratory failure. Compared: 01/12 Findings: Chronic air trapping, chronic features of COPD persist. There is blunting of the left greater than right costophrenic angle, some of this is owing to air trapping however at least on the left this is increased and there is likely at least a small amount of pleural fluid present. No vascular congestion. The heart size stable. No consolidating pneumonia. No pneumothorax. Impression: COPD and likely small left effusion. Dictated by: Dictated on workstation # [id number]
--- NOTE | 2023-01-14 09:54 | Tele-ICU Progress Note ---
Subjective Date Seen by a Provider: Jan 14, 2023 Time Seen by a Provider: 09:54 Subjective/Events-last exam (Tele-ICU Physician , Progress Note ) Service provided via interactive audio and video telecommunications E-CARE system to a patient admitted to ICU bed in [facility]. Patient is seen today due to persistent need of ICU care Available chart/ vitals / labs / Images reviewed Video assessment done using teleICU camera, rest of exam as per RN Discussed with RN Events overnight : Afebrile hemodynamically stable Respiratory - I/O = ++ Drips: Pressors- no Hospital course: (01/10) 77 Y admitted with exacerbation of asthma, hypoxia, acute cystitis, UTI (01/12) Transfer to ICU for worsening shortness of breath on Bipap A/P Acute resp failure ( [facility] 01/10 - neg for pe or pna ) - BIPAP 18/10 40 % rr 35 tv500 MV 18 L - seems mostly for SOB assocoated with anxiety - was on BIPAP overnight - for breakfast on 5 l NC -> 7 L today , breahting comfortably while eating , in no distress - consider diuresis AECOPD - nebs , steroids - dose as per PCP IV still , has wheezing SVT - - as per cardiology Elev trop - likely demand - as per cardiology uncontrolled HTN -(233/144 on admission) - as per cardiology UTI - cont abx - ceftriaxone cx pending Hemoconcentration/ eleb Hb 19.6 on admission - presumed due to chronic hypoxemia if no other Dx withexplanation - to re-eval Lines : , (Central Line Necessity Reviewed) Diane: void , jesseniawick 4.24 OG: Nutrition: Analgesia: Anxiety/ delirium VTE Prophylaxis: lovenox - REFUSING Stress Ulcer Prophylaxis: na Plans in collaboration with bedside consultants and IM MDs. Discussed with RN to reach out if any questions or concerns Case and care daily discussed on multidisciplinary rounds ( RN, PharmD, Pants Maker , Respiratory Therapy, reinforcing iron worker helper ) A total of 25 minutes of critical care time was devoted to this patient today, required to treat and/or prevent further deterioration of critical care condition ( as above ) . I am remotely monitoring this patient from another state. I am unable to do the bedside exam, and history/physical and pertinent information is taken from other notes in the computer and bedside staff. Sepsis Event Evaluation Height, Weight, BMI Height: 5'3.00" Weight: 140lbs. 0.0oz. [id number]; 22.99 BMI Method:Stated Exam Exam Patient acknowledged, consented, and participated in this virtual visit which was conducted using real time audio/video Vital Signs Date Time Temp Pulse Resp B/P (MAP) Pulse Ox O2 Delivery O2 Flow Rate FiO2 01/14/23 09:00 85 26 164/88 (113) 89 High Flow N/C 7.00 01/14/23 08:00 125 23 174/92 (119) 92 High Flow N/C 7.00 01/14/23 08:00 36.3 01/14/23 07:46 24 88 High Flow N/C 7.00 01/14/23 07:38 High Flow N/C 5.00 01/14/23 07:12 87 01/14/23 07:00 89 161/92 (115) NIV Bilevel 40.00 01/14/23 06:55 101 23 91 45.00 01/14/23 06:00 72 18 138/75 (96) 91 NIV Bilevel 40.00 01/14/23 05:00 67 19 146/71 (96) 92 NIV Bilevel 40.00 01/14/23 04:00 66 18 139/75 (96) 93 NIV Bilevel 40.00 01/14/23 04:00 36.4 NIV Bilevel 40.00 01/14/23 03:58 96 NIV Bilevel 40 01/14/23 03:00 61 19 143/79 (100) 93 NIV Bilevel 40.00 01/14/23 02:33 66 21 93 40.00 01/14/23 02:00 59 18 153/72 (99) 93 NIV Bilevel 40.00 01/14/23 01:00 70 01/14/23 01:00 67 18 124/69 (87) 91 NIV Bilevel 40.00 01/14/23 00:30 95 NIV Bilevel 40 01/14/23 00:23 NIV Bilevel 40.00 01/14/23 00:00 89 27 188/99 (128) 90 Nasal Cannula 5.00 01/13/23 23:56 36.1 Nasal Cannula 5.00 01/13/23 23:00 70 26 171/90 (117) 94 Nasal Cannula 5.00 01/13/23 22:00 77 19 171/90 (117) 92 Nasal Cannula 5.00 01/13/23 21:21 Nasal Cannula 6.00 01/13/23 21:19 95 Nasal Cannula 6.00 01/13/23 21:00 70 19 164/93 (116) 94 Nasal Cannula 5.00 01/13/23 20:00 94 Nasal Cannula 5.00 01/13/23 20:00 94 28 187/107 (133) 95 Nasal Cannula 5.00 01/13/23 19:00 94 01/13/23 19:00 36.0 Nasal Cannula 5.00 01/13/23 19:00 80 20 131/65 (87) 94 Nasal Cannula 5.00 01/13/23 18:46 87 18 95 40.00 01/13/23 18:20 94 Nasal Cannula 6.00 01/13/23 18:00 23 171/85 (113) 95 Nasal Cannula 5.00 01/13/23 17:00 83 24 202/90 (127) 97 Nasal Cannula 5.00 01/13/23 16:09 35.8 01/13/23 16:00 95 Nasal Cannula 5.00 01/13/23 16:00 80 23 155/77 (103) 93 Nasal Cannula 5.00 01/13/23 15:00 75 20 159/84 (109) 95 Nasal Cannula 5.00 01/13/23 14:36 97 Nasal Cannula 6.00 01/13/23 14:00 75 31 164/73 (103) 94 Nasal Cannula 5.00 01/13/23 13:00 80 27 165/82 (109) 94 Nasal Cannula 5.00 01/13/23 12:13 88 21 162/82 (108) 93 Nasal Cannula 5.00 01/13/23 12:05 87 01/13/23 12:00 94 Nasal Cannula 5.00 01/13/23 12:00 36.5 01/13/23 11:00 78 16 175/100 (125) 94 Nasal Cannula 5.00 01/13/23 10:24 93 Nasal Cannula 6.00 01/13/23 10:00 74 21 173/84 (113) 93 Nasal Cannula 5.00 01/13/23 09:57 Nasal Cannula 5.00 I & O 01/14/23 07:00 Intake Total 990 ml Output Total 425 ml Balance 565 ml Height & Weight Height: 5'3.00" Weight: 140lbs. 0.0oz. [id number]; 22.99 BMI Method:Stated General Appearance: No Apparent Distress Respiratory: Chest Non Tender; No No Accessory Muscle Use, No No Respiratory Distress; Wheezing Cardiovascular: Regular Rate, Rhythm, No Murmur, Normal Peripheral Pulses Capillary Refill: Less Than 3 Seconds Gastrointestinal: normal bowel sounds, non tender, soft, no organomegaly, no pulsatile mass Neurologic/Psychiatric: Alert Skin: Normal Color, Warm/Dry Results Lab Laboratory Tests 01/13/23 03:50 01/14/23 03:16 Assessment/Plan Assessment/Plan 1 LETICIA KAPADIA MD Jan 14, 2023 09:54
--- NOTE | 2023-01-14 10:15 | Progress Note - Cardiology ---
Cardiology SOAP Progress Note Subjective: Continues with marked shortness of breath No cp or palp or syncope No significant swelling Gen weakness and malaise No focal weakness reported No n/v/d Objective: I&O/Vital Signs 01/13/23 01/13/23 01/14/23 01/14/23 23:00 23:56 00:00 00:23 Temp 36.1 Pulse 70 89 Resp 26 27 B/P (MAP) 171/90 (117) 188/99 (128) Pulse Ox 94 90 O2 Delivery Nasal Cannula Nasal Cannula Nasal Cannula NIV Bilevel O2 Flow Rate 5.00 5.00 5.00 40.00 01/14/23 01/14/23 01/14/23 01/14/23 00:30 01:00 01:00 02:00 Pulse 67 70 59 Resp 18 18 B/P (MAP) 124/69 (87) 153/72 (99) Pulse Ox 95 91 93 O2 Delivery NIV Bilevel NIV Bilevel NIV Bilevel O2 Flow Rate 40.00 40.00 FiO2 40 01/14/23 01/14/23 01/14/23 01/14/23 02:33 03:00 03:58 04:00 Temp 36.4 Pulse 66 61 Resp 21 19 B/P (MAP) 143/79 (100) Pulse Ox 93 93 96 O2 Delivery NIV Bilevel NIV Bilevel NIV Bilevel O2 Flow Rate 40.00 40.00 40.00 FiO2 40 01/14/23 01/14/23 01/14/23 01/14/23 04:00 05:00 06:00 06:55 Pulse 66 67 72 101 Resp 18 19 18 23 B/P (MAP) 139/75 (96) 146/71 (96) 138/75 (96) Pulse Ox 93 92 91 91 O2 Delivery NIV Bilevel NIV Bilevel NIV Bilevel O2 Flow Rate 40.00 40.00 40.00 45.00 01/14/23 01/14/23 01/14/23 01/14/23 07:00 07:12 07:38 07:46 Pulse 89 87 Resp 24 B/P (MAP) 161/92 (115) Pulse Ox 88 O2 Delivery NIV Bilevel High Flow N/C High Flow N/C O2 Flow Rate 40.00 5.00 7.00 01/14/23 01/14/23 01/14/23 01/14/23 08:00 08:00 09:00 10:01 Temp 36.3 Pulse 125 85 Resp 23 26 B/P (MAP) 174/92 (119) 164/88 (113) Pulse Ox 92 89 95 O2 Delivery High Flow N/C High Flow N/C Nasal Cannula O2 Flow Rate 7.00 7.00 6.00 01/14/23 00:00 Intake Total 770 ml Balance 770 ml Weight (Pounds): 140 Weight (Ounces): 0.0 Weight (Calculated Kilograms): 63.501699 Constitutional: AAO x 3, well-developed, well-nourished, other (on BiPAP) Respiratory: accessory muscle use, chest expansion is symmetric, chest is bilaterally symmetric, rhonchi, wheezing Cardiovascular: regular rate-rhythm, S1 and S2, systolic murmur (soft CAMRYN at card base) Gastrointestional: No tender; soft; No guarding, No rebound; audible bowel sounds Extremities: No clubbing, No cyanosis, No significant edema Neurologic/Psychiatric: oriented x 3, other (moves all limbs equally) Skin: No rash on exposed areas, No ulcerations on exposed areas Results/Procedures: Labs Laboratory Tests 01/14/23 03:16: White Blood Count 15.7H, Red Blood Count 5.04, Hemoglobin 16.0, Hematocrit 49, Mean Corpuscular Volume 98, Mean Corpuscular Hemoglobin 32, Mean Corpuscular Hemoglobin Concent 32, Red Cell Distribution Width 15.9H, Platelet Count 294, Mean Platelet Volume 10.3, Sodium Level 143, Potassium Level 4.2, Chloride Level 109H, Carbon Dioxide Level 24, Anion Gap 10, Blood Urea Nitrogen 33H, Creatinine 0.82, Estimat Glomerular Filtration Rate 74, BUN/Creatinine Ratio 40, Glucose Level 152H, Calcium Level 9.1, Corrected Calcium 9.6, Phosphorus Level 2.9, Magnesium Level 2.5H, Total Bilirubin 0.6, Aspartate Amino Transf (AST/SGOT) 21, Alanine Aminotransferase (ALT/SGPT) 34, Alkaline Phosphatase 45, Total Protein 5.8L, Albumin 3.4 Microbiology 01/10/23 Urine Culture - Final, Complete Mixed Bacterial [place] 01/10/23 Blood Culture - Preliminary, Resulted No growth Laboratory Tests 01/13/23 03:50 01/14/23 03:16 A/P: Assessment: SVT: - Diagnosed greater than 15 years ago in [facility]. - AVRT vs AVnRT (terminated by immersing her head in a bucket of ice cold water) - TSH and Free T4 within normal limits. BNP mildlly elevated at 133 - likely related to exac of asthma and PSVT - Echo on 01/13/23: moderate concentric hypertrophy. Systolic function is hyperdynamic. The estimated ejection fraction is 65-70%. Grade 1 diastolic dys function. PASP could not be estimated SOB: likely ashtma - managed by the [facility] sv[facility] HTN: not well controlled Mildly elevated troponin - likely Type 2 LA secondary to HTN (233/144 on admission) and tachycardia and asthma exacerbation Plan: * continue current cardiac regimen; bb reduced due to asthma and reactive airways; calcium channel jean added to control SVT * minimize albuterol use; agree with xopenex * echo (done and reported above) * monitor labs closely ELINA STEPHENS MD FACP [facility] Jan 14, 2023 10:15
[2023-01-14] MEDS ORDERED: FUROSEMIDE 40 MG/4 ML INJ (LASIX) IVP NR (11:00)
[2023-01-14] MEDS ORDERED: FUROSEMIDE 40 MG/4 ML INJ (LASIX) ONE (11:11)
--- NOTE | 2023-01-14 15:43 | Progress Note - Hospitalist ---
ADOLFO COELLOEB 01/14/23 1543: Subjective HPI/CC On Admission Date Seen by Provider: Jan 14, 2023 Patient is a 77-year-old female with past medical history of hypertension, SVT, asthma, anxiety who presented to the emergency department due to shortness of breath. States she has a long history of asthma and will frequently need rounds of steroids to help with this. She started feeling short of breath over the past few days called her primary care physician for this and was sent steroids. She had been compliant with those and had been using her inhaler "too much" and despite this continued to worsen. She presented to the emergency department because she had to use her son's oxygen to keep her oxygen levels up. He does complain of a cough though this is relatively unchanged from her baseline cough. In the emergency room she was found to be hypoxic with sats in the high 80s which resolved with nasal cannula. She was found to have an intermittent tachycardia though. There were unable to catch this on EKG though it appeared narrow complex per the emergency room. She was also incidentally found to have a urinary tract infection. She was admitted to the hospital for further management of her asthma and UTI and for cardiology consultation given her intermittent tachycardia. This morning she reports feeling somewhat better though was frustrated overnight due to it being hot in her room and not having her normal medicines but that did improve when she got an Ativan. She is concerned about why she needs oxygen. We discussed the pathophysiology of asthma and bronchospasm and that we will attempt to wean her off oxygen if able and continue to treat her with steroids and Xopenex. Subjective/Events-last exam Pt was seen and interviewed today. Yesterday pt was having trouble breathing and began to desat as oxygen was weaned to 5L. Pt was then given 7L High Flow and episode improved. Today pt states that she is doing about the same as yesterday. Still complains of trouble breathing and headache; pt denies chest pain, abdominal pain, fever, chills, and N/V/D. Review of Systems General: No Chills HEENT: Head Aches Pulmonary: Dyspnea Cardiovascular: No: Chest Pain Gastrointestinal: No: Nausea, Vomiting, Abdominal Pain Objective Exam Vital Signs Vital Signs Date Time Temp Pulse Resp B/P (MAP) Pulse Ox O2 Delivery O2 Flow Rate FiO2 01/14/23 15:16 92 High Flow N/C 10.00 4/25/23 15:00 95 19 174/90 (118) 01/14/23 15:00 36.4 01/14/23 03:58 40 Capillary Refill : Less Than 3 Seconds General Appearance: No Apparent Distress Respiratory: Chest Non Tender, No Accessory Muscle Use, No Respiratory Distress, Wheezing Cardiovascular: Regular Rate, Rhythm, No Murmur, Normal Peripheral Pulses Gastrointestinal: Normal Bowel Sounds, Non Tender, Soft Extremity: No Pedal Edema Neurologic/Psychiatric: Alert, Oriented x3 Skin: Normal Color, Warm/Dry Results/Procedures Lab Laboratory Tests 01/14/23 03:16 Patient resulted labs reviewed. Imaging: Reviewed Imaging Report Assessment/Plan Assessment and Plan Assess & Plan/Chief Complaint Acute on Chronic Hypoxic Respiratory Failure Asthma Exacerbation CXR Ordered; Showed signs of COPD and small left pleural effusion Start Lasix- Due to pt's refractory dyspnea and small pleural effusion BiPAP as needed Continue Steroids Continue xopenex MAT protocol Wean oxygen as able SVT Elevated Troponin HTN Tachycardia Cardiology Following Reduce beta jean due to asthma and reactive airways Continue calcium channel jean to control SVT Minimize albuterol use ECHO: Normal Ejection Fraction; Concentric Hypertrophy UTI Non-conclusive results from culture Continue Antibiotics CHRISTA KEATING MD 01/14/23 1756: Subjective HPI/CC On Admission Time Seen by Provider: 10:50 Objective Exam General Appearance: No Apparent Distress, Anxious Respiratory: No Respiratory Distress, Decreased Breath Sounds Cardiovascular: Regular Rate, Rhythm, No Murmur Gastrointestinal: Normal Bowel Sounds, Soft Extremity: Normal Inspection, No Pedal Edema Neurologic/Psychiatric: Alert, No Motor/Sensory Deficits Skin: Warm/Dry, Erythema (facial) Results/Procedures Imaging: Reviewed Imaging Report Assessment/Plan Assessment and Plan Assess & Plan/Chief Complaint Continued respiratory failure with oxygen requirement. Continue steroids and breathing treatments. Trial of Lasix today. Add on respiratory viral panel. TeleICU following, appreciate assistance. Critical Care: Critically Ill Patient Diagnosis/Problems Diagnosis/Problems (1) Acute respiratory failure with hypoxia Status: Acute (2) Asthma exacerbation Status: Acute (3) Supraventricular tachycardia Status: Acute (4) HTN (hypertension) Status: Acute (5) Anxiety Status: Acute Supervisory-Addendum Brief Verification & Attestation Participated in pt care: history, MDM, physical Personally performed: exam, history, MDM, supervision of care Care discussed with: Medical Student Procedures: n/a Results interpretation: Verified all documentation A medical student performed and documented this service in my presence. I reviewed and verified all information documented by the medical student and made modifications to such information, when appropriate. I personally performed the physical exam and medical decision making. CHEYENNE COELLO Jan 14, 2023 15:43 CHRISTA KEATING MD Jan 14, 2023 17:56
[2023-01-14 20:05] VITALS: BP 152/82
[2023-01-14] MEDS: cefTRIAXone IV/IM 1,000 MG in NS (IVPB) 50 ML IV SCH (20:19)
[2023-01-14] MEDS: LORazepam 0.5 MG (ATIVAN) TABLET PO SCH (20:20)
[2023-01-14] MEDS: ENOXAPARIN 40 MG/0.4 ML (LOVENOX) SYR SC SCH (20:20)
[2023-01-14 22:09] VITALS: BP 127/71
[2023-01-15] MEDS: methylPREDNISolone 40 MG/ML (Solu-MEDROL) VIAL IVP SCH ×2 (00:22→08:09)
[2023-01-15] MEDS: LORazepam 1 MG (ATIVAN) TAB PO PRN ×2 (01:54→15:28)
[2023-01-15] MEDS: RT-LEVALBUTEROL (XOPENEX) 1.25 MG/3 ML NEB NON-FORMULARY INH SCH ×6 (01:56→22:00)
[2023-01-15] MEDS: RT-IPRATROPIUM (ATROVENT) 0.5MG/2.5ML AMP IH SCH ×6 (01:57→22:00)
[2023-01-15 02:05] VITALS: BP 173/93
[2023-01-15 03:50] LABS: HEMATOCRIT 50 % (35-52); HEMOGLOBIN 16.3 g/dL (11.5-16.0); MEAN CORPUSCULAR HEMOGLOBIN 31 pg (25-34); MEAN CORPUSCULAR HGB CONC 33 g/dL (32-36); MEAN CORPUSCULAR VOLUME 96 fL (80-99); MEAN PLATELET VOLUME 10.1 fL (9.0-12.2); PLATELET COUNT 217 10^3/uL (130-400); WHITE BLOOD COUNT 18.4 10^3/uL (4.3-11.0)
[2023-01-15 04:00] LABS: ALBUMIN 3.4 GM/DL (3.2-4.5); POTASSIUM 3.9 MMOL/L (3.6-5.0)
[2023-01-15 04:01] LABS: CALCIUM 9.3 MG/DL (8.5-10.1)
[2023-01-15 04:02] LABS: TOTAL PROTEIN 5.9 GM/DL (6.4-8.2)
[2023-01-15 04:04] LABS: BILIRUBIN,TOTAL 0.9 MG/DL (0.1-1.0)
[2023-01-15 04:05] LABS: PHOSPHORUS 2.9 MG/DL (2.3-4.7)
[2023-01-15 04:06] LABS: CREATININE SERUM 0.79 MG/DL (0.60-1.30)
[2023-01-15 04:10] LABS: MAGNESIUM 2.6 MG/DL (1.6-2.4)
[2023-01-15 07:19] VITALS: BP 180/95
[2023-01-15] MEDS: DOCUSATE SODIUM 100 MG (COLACE) CAP PO SCH ×2 (08:09→20:31)
[2023-01-15] MEDS: LORazepam 0.5 MG (ATIVAN) TABLET PO SCH ×2 (08:10→20:30)
[2023-01-15] MEDS: meTOprolol TARTRATE 50 MG (LOPRESSOR) TAB PO SCH ×2 (08:10→20:30)
[2023-01-15] MEDS: lisINopril 20 MG (PRINIVIL) TABLET PO SCH (08:10)
[2023-01-15] MEDS ORDERED: FUROSEMIDE 40 MG/4 ML INJ (LASIX) IVP ONE (09:00)
--- NOTE | 2023-01-15 09:00 | Progress Note - Cardiology ---
Cardiology SOAP Progress Note Subjective: No cp or palp or syncope Shortness of breath persistent No n/v/d Gen weakness Does not report focal weakness Objective: I&O/Vital Signs 01/14/23 01/14/23 01/14/23 01/14/23 21:00 21:30 22:00 22:09 Pulse 96 65 61 65 Resp 22 19 17 21 B/P (MAP) 158/89 (127) 129/79 (93) 127/71 (98) Pulse Ox 92 92 92 93 O2 Delivery NIV Bilevel NIV Bilevel NIV Bilevel O2 Flow Rate 45.00 45.00 45.00 45.00 01/14/23 01/14/23 01/14/23 01/14/23 22:30 22:40 22:42 22:52 Temp 36.6 Pulse 64 Resp 20 B/P (MAP) 137/76 (93) Pulse Ox 93 O2 Delivery NIV Bilevel High Flow N/C NIV Bilevel O2 Flow Rate 45.00 10.00 45.00 01/14/23 01/14/23 01/15/23 01/15/23 23:00 23:30 00:00 00:00 Pulse 70 66 67 Resp 18 20 17 B/P (MAP) 145/79 (98) 130/77 (100) 129/69 (90) Pulse Ox 93 91 94 92 O2 Delivery NIV Bilevel NIV Bilevel NIV Bilevel NIV Bilevel O2 Flow Rate 45.00 45.00 45.00 FiO2 45 01/15/23 01/15/23 01/15/23 01/15/23 00:30 01:00 01:00 01:30 Pulse 67 71 71 67 Resp 19 18 18 B/P (MAP) 143/72 (104) 133/70 (93) 138/75 (95) Pulse Ox 90 90 90 O2 Delivery NIV Bilevel NIV Bilevel NIV Bilevel O2 Flow Rate 45.00 45.00 45.00 01/15/23 01/15/23 01/15/23 01/15/23 01:57 01:58 02:00 02:05 Pulse 82 80 Resp 16 19 B/P (MAP) 173/93 (106) Pulse Ox 93 93 93 91 O2 Delivery High Flow N/C High Flow N/C NIV Bilevel O2 Flow Rate 10.00 10.00 45.00 45.00 01/15/23 01/15/23 01/15/23 4/26/23 02:30 02:35 03:00 03:30 Temp 36.2 Pulse 82 83 93 Resp 19 19 23 B/P (MAP) 164/93 (126) 157/87 (119) 164/113 (136) Pulse Ox 89 90 92 O2 Delivery NIV Bilevel NIV Bilevel NIV Bilevel NIV Bilevel O2 Flow Rate 45.00 45.00 45.00 45.00 01/15/23 01/15/23 01/15/23 01/15/23 04:00 04:14 04:30 04:46 Temp 36.6 Pulse 94 105 84 Resp 15 19 16 B/P (MAP) 170/97 (125) 164/88 (114) Pulse Ox 93 92 92 O2 Delivery NIV Bilevel High Flow N/C High Flow N/C High Flow N/C O2 Flow Rate 45.00 10.00 10.00 10.00 01/15/23 01/15/23 01/15/23 01/15/23 04:48 05:00 05:30 06:00 Pulse 77 78 85 Resp 18 19 19 B/P (MAP) 159/83 (111) 149/82 (93) 169/81 (135) Pulse Ox 93 93 91 92 O2 Delivery High Flow N/C High Flow N/C High Flow N/C High Flow N/C O2 Flow Rate 10.00 10.00 10.00 10.00 01/15/23 01/15/23 01/15/23 01/15/23 06:30 07:00 07:02 07:19 Pulse 84 107 105 100 Resp 20 20 21 B/P (MAP) 160/85 (105) 180/95 (123) Pulse Ox 81 94 95 O2 Delivery High Flow N/C High Flow N/C O2 Flow Rate 10.00 10.00 45.00 01/15/23 01/15/23 08:00 08:00 Temp 36.4 Pulse 108 Resp 23 B/P (MAP) 175/93 (120) Pulse Ox 96 O2 Delivery High Flow N/C O2 Flow Rate 10.00 01/15/23 00:00 Intake Total 490 ml Output Total 200 ml Balance 290 ml Weight (Pounds): 140 Weight (Ounces): 0.0 Weight (Calculated Kilograms): 63.346285 Constitutional: AAO x 3, well-developed, well-nourished, other (on BiPAP) Respiratory: accessory muscle use, chest expansion is symmetric, chest is bilaterally symmetric, rhonchi, wheezing Cardiovascular: regular rate-rhythm, S1 and S2, systolic murmur (soft CAMRYN at card base) Gastrointestional: No tender; soft; No guarding, No rebound; audible bowel sounds Extremities: No clubbing, No cyanosis, No significant edema Neurologic/Psychiatric: oriented x 3, other (moves all limbs equally) Skin: No rash on exposed areas, No ulcerations on exposed areas Results/Procedures: Labs Laboratory Tests 01/14/23 16:55: 01/15/23 03:34: White Blood Count 18.4H, Red Blood Count 5.20H, Hemoglobin 16.3H, Hematocrit 50, Mean Corpuscular Volume 96, Mean Corpuscular Hemoglobin 31, Mean Corpuscular Hemoglobin Concent 33, Red Cell Distribution Width 15.5H, Platelet Count 217, Mean Platelet Volume 10.1, Sodium Level 143, Potassium Level 3.9, Chloride Level 104, Carbon Dioxide Level 27, Anion Gap 12, Blood Urea Nitrogen 32H, Creatinine 0.79, Estimat Glomerular Filtration Rate 77, BUN/Creatinine Ratio 41, Glucose Level 159H, Calcium Level 9.3, Corrected Calcium 9.8, Phosphorus Level 2.9, Magnesium Level 2.6H, Total Bilirubin 0.9, Aspartate Amino Transf (AST/SGOT) 16, Alanine Aminotransferase (ALT/SGPT) 35, Alkaline Phosphatase 48, Total Protein 5.9L, Albumin 3.4 Microbiology 01/10/23 Urine Culture - Final, Complete Mixed Bacterial [place] 01/10/23 Blood Culture - Preliminary, Resulted No growth Laboratory Tests 01/14/23 03:16 01/15/23 03:34 A/P: Assessment: SVT: - Diagnosed greater than 15 years ago in [facility]. - AVRT vs AVnRT (terminated by immersing her head in a bucket of ice cold water). - TSH and Free T4 within normal limits. - Beta-jean reduced (due to asthma) and long-acting diltiazem added during this hosp BNP mildlly elevated at 133 - likely related to exac of asthma and PSVT - Echo on 01/13/23: moderate concentric hypertrophy. Systolic function is hyperdynamic. The estimated ejection fraction is 65-70%. Grade 1 diastolic dysfunction. PASP could not be estimated SOB: likely ashtma - managed by the Hosp svce HTN: not well controlled Mildly elevated troponin - likely Type 2 PR secondary to HTN (233/144 on admission) and tachycardia and asthma exacerbation Plan: * continue current cardiac regimen; bb reduced due to asthma and reactive airways; calcium channel jean added to control SVT; SVT appears well controlled on this regimen * monitor labs closely * too short of breath to be transferred out of ICU; hospitalist [facility] managing ELINA STEPHENS MD FACP FAC CCDS Jan 15, 2023 09:00
--- NOTE | 2023-01-15 11:11 | Tele-ICU Progress Note ---
Subjective Date Seen by a Provider: Jan 15, 2023 Time Seen by a Provider: 11:11 Subjective/Events-last exam (Tele-ICU Physician , Progress Note ) Service provided via interactive audio and video telecommunications E-CARE system to a patient admitted to ICU bed in [facility]. Patient is seen today due to persistent need of ICU care Available chart/ vitals / labs / Images reviewed Video assessment done using teleICU camera, rest of exam as per RN Discussed with RN Events overnight : was on bipap last night Afebrile hemodynamically stable Respiratory - 10 L I/O = ++ Drips: Pressors- no Hospital course: (01/10) 77 Y admitted with exacerbation of asthma, hypoxia, acute cystitis, UTI (01/12) Transfer to ICU for worsening shortness of breath on Bipap 01/15 10 L 02 off bipapp A/P Acute resp failure ( [facility] 01/10 - neg for pe or pna ) - BIPAP 18/10 40 % rr 35 tv500 MV 18 L - seems mostly for SOB assocoated with anxiety - was on BIPAP overnight - for breakfast on 5 l NC -> 7 L today , breahting comfortably while eating , in no distress - still had elevated HR and poorly controlled BP - con diuresis with good respond - AECOPD - nebs , steroids SM 40 q 8 - dose as per PCP - less wheezing as per RN am assessment SVT - - as per cardiology Elev trop - likely demand - as per cardiology uncontrolled HTN -(233/144 on admission) - as per cardiology - as per notes - patient is very particulat what medications she will take UTI - cont abx - ceftriaxone cx pending Hemoconcentration/ eleb Hb 19.6 on admission - presumed due to chronic hypoxemia if no other Dx with explanation - to re-eval Lines : periph , (Central Line Necessity Reviewed) Diane: mounika roche 4.24 OG: Nutrition: po - minimal Analgesia: Anxiety/ delirium prn ativan VTE Prophylaxis: lovenox - REFUSING Stress Ulcer Prophylaxis: na Plans in collaboration with bedside consultants and IM MDs. Discussed with RN to reach out if any questions or concerns Case and care daily discussed on multidisciplinary rounds ( RN, PharmD, Interior Design Project Manager , Respiratory Therapy, jet worker ) A total of 25 minutes of critical care time was devoted to this patient today, required to treat and/or prevent further deterioration of critical care condition ( as above ) . I am remotely monitoring this patient from another state. I am unable to do the bedside exam, and history/physical and pertinent information is taken from other notes in the computer and bedside staff. Sepsis Event Evaluation Height, Weight, BMI Height: 5'3.00" Weight: 140lbs. 0.0oz. 63.531565fu; 23.18 BMI Method:Stated Exam Exam Patient acknowledged, consented, and participated in this virtual visit which was conducted using real time audio/video Vital Signs Date Time Temp Pulse Resp B/P (MAP) Pulse Ox O2 Delivery O2 Flow Rate FiO2 01/15/23 10:00 115 24 194/104 (134) 94 High Flow N/C 10.00 01/15/23 09:00 97 18 151/86 (107) 95 High Flow N/C 10.00 01/15/23 08:00 108 23 175/93 (120) 96 High Flow N/C 10.00 01/15/23 08:00 36.4 01/15/23 07:19 100 21 95 45.00 01/15/23 07:02 105 01/15/23 07:00 107 20 180/95 (123) 94 High Flow N/C 10.00 01/15/23 06:30 84 20 160/85 (105) 81 High Flow N/C 10.00 01/15/23 06:00 85 19 169/81 (135) 92 High Flow N/C 10.00 01/15/23 05:30 78 19 149/82 (93) 91 High Flow N/C 10.00 01/15/23 05:00 77 18 159/83 (111) 93 High Flow N/C 10.00 01/15/23 04:48 93 High Flow N/C 10.00 01/15/23 04:46 36.6 High Flow N/C 10.00 01/15/23 04:30 84 16 164/88 (114) 92 High Flow N/C 10.00 01/15/23 04:14 105 19 92 High Flow N/C 10.00 01/15/23 04:00 94 15 170/97 (125) 93 NIV Bilevel 45.00 01/15/23 03:30 93 23 164/113 (136) 92 NIV Bilevel 45.00 01/15/23 03:00 83 19 157/87 (119) 90 NIV Bilevel 45.00 01/15/23 02:35 36.2 NIV Bilevel 45.00 01/15/23 02:30 82 19 164/93 (126) 89 NIV Bilevel 45.00 01/15/23 02:05 80 19 91 45.00 01/15/23 02:00 82 16 173/93 (106) 93 NIV Bilevel 45.00 01/15/23 01:58 93 High Flow N/C 10.00 01/15/23 01:57 93 High Flow N/C 10.00 01/15/23 01:30 67 18 138/75 (95) 90 NIV Bilevel 45.00 01/15/23 01:00 71 18 133/70 (93) 90 NIV Bilevel 45.00 01/15/23 01:00 71 01/15/23 00:30 67 19 143/72 (104) 90 NIV Bilevel 45.00 01/15/23 00:00 67 17 129/69 (90) 92 NIV Bilevel 45.00 01/15/23 00:00 94 NIV Bilevel 45 01/14/23 23:30 66 20 130/77 (100) 91 NIV Bilevel 45.00 01/14/23 23:00 70 18 145/79 (98) 93 NIV Bilevel 45.00 01/14/23 22:52 NIV Bilevel 45.00 01/14/23 22:42 36.6 01/14/23 22:40 High Flow N/C 10.00 01/14/23 22:30 64 20 137/76 (93) 93 NIV Bilevel 45.00 01/14/23 22:09 65 21 93 45.00 01/14/23 22:00 61 17 127/71 (98) 92 NIV Bilevel 45.00 01/14/23 21:30 65 19 129/79 (93) 92 NIV Bilevel 45.00 01/14/23 21:00 96 22 158/89 (127) 92 NIV Bilevel 45.00 01/14/23 20:30 98 21 161/80 (110) 92 NIV Bilevel 45.00 01/14/23 20:08 93 High Flow N/C 10.00 01/14/23 20:05 97 20 92 45.00 01/14/23 20:00 98 21 152/82 (111) 91 NIV Bilevel 45.00 01/14/23 19:54 36.2 01/14/23 19:45 101 18 91 NIV Bilevel 45.00 01/14/23 19:30 105 22 176/85 (114) 92 High Flow N/C 10.00 01/14/23 19:15 92 High Flow N/C 10.00 01/14/23 19:14 92 High Flow N/C 10.00 01/14/23 19:00 93 23 171/89 (117) 91 High Flow N/C 10.00 01/14/23 19:00 High Flow N/C 10.00 01/14/23 19:00 99 01/14/23 18:00 92 High Flow N/C 10.00 01/14/23 18:00 96 23 147/91 (109) 93 High Flow N/C 7.00 01/14/23 17:00 98 14 163/100 (121) 93 High Flow N/C 7.00 01/14/23 16:00 92 14 166/92 (116) 91 High Flow N/C 7.00 01/14/23 16:00 92 High Flow N/C 10.00 01/14/23 15:16 92 High Flow N/C 10.00 01/14/23 15:00 95 19 174/90 (118) 88 High Flow N/C 7.00 01/14/23 15:00 36.4 01/14/23 14:00 96 27 168/95 (119) 89 High Flow N/C 7.00 01/14/23 13:00 88 23 158/71 (100) 91 High Flow N/C 7.00 01/14/23 12:11 87 01/14/23 12:00 85 30 148/87 (107) 90 High Flow N/C 7.00 01/14/23 12:00 92 High Flow N/C 7.00 01/14/23 11:29 36.8 I & O 01/15/23 07:00 Intake Total 970 ml Output Total 750 ml Balance 220 ml Height & Weight Height: 5'3.00" Weight: 140lbs. 0.0oz. 63.147730zt; 23.18 BMI Method:Stated General Appearance: No Apparent Distress, Anxious Respiratory: No Respiratory Distress, Decreased Breath Sounds Cardiovascular: Regular Rate, Rhythm, No Murmur Capillary Refill: Less Than 3 Seconds Gastrointestinal: normal bowel sounds, non tender, soft, no organomegaly, no p ulsatile mass Extremity: Normal Inspection, No Pedal Edema Neurologic/Psychiatric: Alert, No Motor/Sensory Deficits Skin: Warm/Dry, Erythema (facial) Results Lab Laboratory Tests 01/14/23 03:16 01/15/23 03:34 Assessment/Plan Assessment/Plan 1 LETICIA KAPADIA MD Jan 15, 2023 11:11
--- NOTE | 2023-01-15 11:14 | Tele-ICU Progress Note ---
Subjective Date Seen by a Provider: Jan 15, 2023 Time Seen by a Provider: 11:14 Subjective/Events-last exam (Tele-ICU Physician , Progress Note ) Service provided via interactive audio and video telecommunications E-CARE system to a patient admitted to ICU bed in [facility]. Patient is seen today due to persistent need of ICU care Available chart/ vitals / labs / Images reviewed Video assessment done using teleICU camera, rest of exam as per RN Discussed with RN Events overnight : Afebrile hemodynamically stable Respiratory - I/O = Drips: lr 150 Pressors- no VENT SETTINGS and ABG reviewed NOT CANDIDATE for SBTreviewed possible contraindications including Cardiovascular Stability /Sedation Score / FI02/PEEP / ABG / CXR/ secretions Sedation, discussed with RN, RASS on propofol 30 Hospital course: (01/15) 49/F- AMS, OD, Zprexa, Etoh, Meth +, Obtunded, Intubated, Propofol gtt. A/P Acute resp failure - intubated 01/15 for airway protection -AC 18 450 40 % +5 - secretions - none Suspected OD of antypsycotics ( zyprexa OD - with h/o multiple suicidal attempts and psych history - neg tylenol and ASA levels - folow conduction system poisoning by drugs that affect the QRS or QTc ( 100 and 467 on last EKG - poison control on case Encephalopathy - presumed OD , no signs of trauma , follow suspected PNA, possible aspiration - started on Zosyn - NEG covid and flu H/o methamphetamine and ETON abuse ( both + on admission ) - thiamine watch for withdrawal Elv lactate - vitals stable - follow Lines : periph , (Central Line Necessity Reviewed) Diane: 01/14 OG: + Nutrition: Analgesia: Anxiety/ delirium VTE Prophylaxis: leov Stress Ulcer Prophylaxis: ppi Plans in collaboration with bedside consultants and IM MDs. Discussed with RN to reach out if any questions or concerns Case and care daily discussed on multidisciplinary rounds ( RN, PharmD, Reinsurance Accountant , Respiratory Therapy, spool worker ) A total of _25 minutes of critical care time was devoted to this patient today, required to treat and/or prevent further deterioration of critical care condition ( as above ) . ( in addition to 22 min earlier this night by Dr Egan ) I am remotely monitoring this patient from another state. I am unable to do the bedside exam, and history/physical and pertinent information is taken from other notes in the computer and bedside staff. Sepsis Event Evaluation Height, Weight, BMI Height: 5'3.00" Weight: 140lbs. 0.0oz. 63.230658kv; 23.18 BMI Method:Stated Exam Exam Patient acknowledged, consented, and participated in this virtual visit which was conducted using real time audio/video Vital Signs Date Time Temp Pulse Resp B/P (MAP) Pulse Ox O2 Delivery O2 Flow Rate FiO2 01/15/23 10:00 115 24 194/104 (134) 94 High Flow N/C 10.00 01/15/23 09:00 97 18 151/86 (107) 95 High Flow N/C 10.00 01/15/23 08:00 108 23 175/93 (120) 96 High Flow N/C 10.00 01/15/23 08:00 36.4 01/15/23 07:19 100 21 95 45.00 01/15/23 07:02 105 01/15/23 07:00 107 20 180/95 (123) 94 High Flow N/C 10.00 01/15/23 06:30 84 20 160/85 (105) 81 High Flow N/C 10.00 01/15/23 06:00 85 19 169/81 (135) 92 High Flow N/C 10.00 01/15/23 05:30 78 19 149/82 (93) 91 High Flow N/C 10.00 01/15/23 05:00 77 18 159/83 (111) 93 High Flow N/C 10.00 01/15/23 04:48 93 High Flow N/C 10.00 01/15/23 04:46 36.6 High Flow N/C 10.00 01/15/23 04:30 84 16 164/88 (114) 92 High Flow N/C 10.00 01/15/23 04:14 105 19 92 High Flow N/C 10.00 01/15/23 04:00 94 15 170/97 (125) 93 NIV Bilevel 45.00 01/15/23 03:30 93 23 164/113 (136) 92 NIV Bilevel 45.00 01/15/23 03:00 83 19 157/87 (119) 90 NIV Bilevel 45.00 01/15/23 02:35 36.2 NIV Bilevel 45.00 01/15/23 02:30 82 19 164/93 (126) 89 NIV Bilevel 45.00 01/15/23 02:05 80 19 91 45.00 01/15/23 02:00 82 16 173/93 (106) 93 NIV Bilevel 45.00 01/15/23 01:58 93 High Flow N/C 10.00 01/15/23 01:57 93 High Flow N/C 10.00 01/15/23 01:30 67 18 138/75 (95) 90 NIV Bilevel 45.00 01/15/23 01:00 71 18 133/70 (93) 90 NIV Bilevel 45.00 01/15/23 01:00 71 01/15/23 00:30 67 19 143/72 (104) 90 NIV Bilevel 45.00 01/15/23 00:00 67 17 129/69 (90) 92 NIV Bilevel 45.00 01/15/23 00:00 94 NIV Bilevel 45 01/14/23 23:30 66 20 130/77 (100) 91 NIV Bilevel 45.00 01/14/23 23:00 70 18 145/79 (98) 93 NIV Bilevel 45.00 01/14/23 22:52 NIV Bilevel 45.00 01/14/23 22:42 36.6 01/14/23 22:40 High Flow N/C 10.00 01/14/23 22:30 64 20 137/76 (93) 93 NIV Bilevel 45.00 01/14/23 22:09 65 21 93 45.00 01/14/23 22:00 61 17 127/71 (98) 92 NIV Bilevel 45.00 01/14/23 21:30 65 19 129/79 (93) 92 NIV Bilevel 45.00 01/14/23 21:00 96 22 158/89 (127) 92 NIV Bilevel 45.00 01/14/23 20:30 98 21 161/80 (110) 92 NIV Bilevel 45.00 01/14/23 20:08 93 High Flow N/C 10.00 01/14/23 20:05 97 20 92 45.00 01/14/23 20:00 98 21 152/82 (111) 91 NIV Bilevel 45.00 01/14/23 19:54 36.2 01/14/23 19:45 101 18 91 NIV Bilevel 45.00 01/14/23 19:30 105 22 176/85 (114) 92 High Flow N/C 10.00 01/14/23 19:15 92 High Flow N/C 10.00 01/14/23 19:14 92 High Flow N/C 10.00 01/14/23 19:00 93 23 171/89 (117) 91 High Flow N/C 10.00 01/14/23 19:00 High Flow N/C 10.00 01/14/23 19:00 99 01/14/23 18:00 92 High Flow N/C 10.00 01/14/23 18:00 96 23 147/91 (109) 93 High Flow N/C 7.00 01/14/23 17:00 98 14 163/100 (121) 93 High Flow N/C 7.00 01/14/23 16:00 92 14 166/92 (116) 91 High Flow N/C 7.00 01/14/23 16:00 92 High Flow N/C 10.00 01/14/23 15:16 92 High Flow N/C 10.00 01/14/23 15:00 95 19 174/90 (118) 88 High Flow N/C 7.00 01/14/23 15:00 36.4 01/14/23 14:00 96 27 168/95 (119) 89 High Flow N/C 7.00 01/14/23 13:00 88 23 158/71 (100) 91 High Flow N/C 7.00 01/14/23 12:11 87 01/14/23 12:00 85 30 148/87 (107) 90 High Flow N/C 7.00 01/14/23 12:00 92 High Flow N/C 7.00 01/14/23 11:29 36.8 I & O 01/15/23 07:00 Intake Total 970 ml Output Total 750 ml Balance 220 ml Height & Weight Height: 5'3.00" Weight: 140lbs. 0.0oz. 63.178197pc; 23.18 BMI Method:Stated General Appearance: No Apparent Distress, Anxious Respiratory: No Respiratory Distress, Decreased Breath Sounds Cardiovascular: Regular Rate, Rhythm, No Murmur Capillary Refill: Less Than 3 Seconds Gastrointestinal: normal bowel sounds, non tender, soft, no organomegaly, no pulsatile mass Extremity: Normal Inspection, No Pedal Edema Neurologic/Psychiatric: Alert, No Motor/Sensory Deficits Skin: Warm/Dry, Erythema (facial) Results Lab Laboratory Tests 01/14/23 03:16 01/15/23 03:34 Assessment/Plan Assessment/Plan 1 LETICIA KAPADIA MD Jan 15, 2023 11:14
--- NOTE | 2023-01-15 15:04 | Physical Therapy Evaluation ---
PT Evaluation-General Medical Diagnosis Admission Date Jan 10, 2023 at 20:51 Medical Diagnosis: Shortness of Breath Onset Date: Jan 14, 2023 Therapy Diagnosis Therapy Diagnosis: Gait deficit, strength deficit Height/Weight Height (Feet): 5 Height (Inches): 3.00 Weight (Pounds): 140 Weight (Ounces): 0.0 Precautions Precautions/Isolations: Fall Prevention, Standard Precautions Weight Bear Status Right Lower Extremity: Right Full Weight Bearing Left Lower Extremity: Left Full Weight Bearing Referral Physician: Dr. Lentz Reason for Referral: Evaluation/Treatment Medical History Reviewed History: Yes Social History Home: Single Level Current Living Status: Other Family Entry Into Home: Stairs With Railing PT Steps Into Home: 4 Prior Prior Level of Function SCALE: Activities may be completed with or without assistive devices. 0-Yweghfifku-rflmekm completes the activity by him/herself with no assistance from a helper. 5-Set-up or Clean-up Assistance-helper sets up or cleans up; patient completes activity. [place] assists only prior to or following the activity. 4-Supervision or Touching Assistance-helper provides verbal cues and/or touching/steadying and/or contact guard assistance as patient completes activity. Assistance may be provided throughout the activity or intermittently. 3-Partial/Moderate Assistance-helper does LESS THAN HALF the effort. [place] lifts, holds or supports trunk or limbs, but provides less than half the effort. 2-Substantial/Maximal Assistance-helper does MORE THAN HALF the effort. [place] lifts or holds trunk or limbs and provides more than half the effort. 7-Dhlyvtcym-pnsyzr does ALL the effort. Patient does none of the effort to complete the activity. Or, the assistance of 2 or more helpers is required for the patient to complete the activity. If activity was not attempted, code reason: 7-Patient Refused. 9-Not Applicable-not attempted and the patient did not perform the activity before the current illness, exacerbation or injury. 10-Not Attempted due to Environmental Limitations-(lack of equipment, weather restraints, etc.). 88-Not Attempted due to Medical Conditions or Safety Concerns. Bed Mobility: 6 Transfers (B,C,W/C): 6 Gait: 6 Stairs: 6 Indoor Mobility (Ambulation): Independent Stairs: Independent Prior Devices Use: None PT Evaluation-Current Subjective Patient sitting in chair upon PT arrival, agreeable to treatment. Patient rates pain at 0/10 currently. Objective Patient Orientation: Person, Place, Time, Situation ROM/Strength ROM Lower Extremities BLEs WFLs all planes Strength Lower Extremities 3+/5 BLEs all planes Sensory Vision: Wears Glasses Hearing: Functional Sensation Right Lower Extremit: Intact Sensation Left Lower Extremity: Intact Transfers Sit to Stand (QC): 3 Chair/Lll-zj-Zyxmu Xfer(QC): 3 Gait Does the Patient Walk?: Yes Mode of Locomotion: Walk Anticipated Mode of Locomotion: Walk Walk 10 feet (QC): 4 Distance: 20 feet Gait Assistive Device: FWW Balance Sitting Static: Good Sitting Dynamic: Good Standing Static: Fair Standing Dynamic: Fair Assessment/Needs Patient tolerated treatment fair. Fatigues quickly but reports she hasn't slept much the past three nights. Patient performs all observed bed mobility and tr ansfers with SBA/min A. Patient ambulates 20 feet with FWW, with CGA and verbal cues for safety, fatigue, posture and conservation of energy. Patient in chair post treatment with all needs met, nursing notified, call light in hand. Rehab Potential: Good PT Usp Goals Usp Goals PT Usp Goals Time Frame: February 15, 2023 Roll Left & Right (QC): 6 Sit to Lying (QC): 6 Lying-Sitting on Side/Bed(QC): 6 Sit to Stand (QC): 6 Chair/Hbm-lz-Ochkv Xfer(QC): 6 Toilet Transfer (QC): 6 Does the Patient Walk: Yes Walk 10 feet (QC): 6 Walk 50ft with 2 Turns (QC): 6 Walk 150 ft (QC): 6 1 Step (curb) (QC): 4 4 Steps (QC): 4 PT Plan Problem List Problem List: Activity Tolerance, Functional Strength, Safety, Balance, Gait, Transfer, Bed Mobility, ROM Treatment/Plan Treatment Plan: Continue Plan of Care Treatment Plan: Bed Mobility, Education, Functional Activity Geraldo, Functional Strength, Group Therapy, Gait, Safety, Therapeutic Exercise, Transfers Treatment Duration: February 15, 2023 Frequency: 6 times per week Estimated Hrs Per Day: .25 hour per day Patient and/or Family Agrees t: Yes Safety Risks/Education Patient Education: Gait Training, Transfer Techniques Teaching Recipient: Patient Teaching Methods: Demonstration, Discussion Response to Teaching: Verbalize Understanding, Return Demonstration Time Time In: 1330 Time Out: 1355 DATE: Jan 15, 2023 Total Billed Treatment Time: 25 Total Billed Treatment Visit, alley GOLDEN JOHN A PT Jan 15, 2023 15:04
--- NOTE | 2023-01-15 19:48 | Progress Note - Hospitalist ---
Subjective HPI/CC On Admission Date Seen by Provider: Jan 15, 2023 Time Seen by Provider: 11:50 Patient is a 77-year-old female with past medical history of hypertension, SVT, asthma, anxiety who presented to the emergency department due to shortness of breath. States she has a long history of asthma and will frequently need rounds of steroids to help with this. She started feeling short of breath over the past few days called her primary care physician for this and was sent steroids. She had been compliant with those and had been using her inhaler "too much" and despite this continued to worsen. She presented to the emergency department because she had to use her son's oxygen to keep her oxygen levels up. He does complain of a cough though this is relatively unchanged from her baseline cough. In the emergency room she was found to be hypoxic with sats in the high 80s which resolved with nasal cannula. She was found to have an intermittent tachycardia though. There were unable to catch this on EKG though it appeared narrow complex per the emergency room. She was also incidentally found to have a urinary tract infection. She was admitted to the hospital for further management of her asthma and UTI and for cardiology consultation given her intermittent tachycardia. This morning she reports feeling somewhat better though was frustrated overnight due to it being hot in her room and not having her normal medicines but that did improve when she got an Ativan. She is concerned about why she needs oxygen. We discussed the pathophysiology of asthma and bronchospasm and that we will attempt to wean her off oxygen if able and continue to treat her with steroids and Xopenex. Subjective/Events-last exam She is feeling a little better. She is sitting in her chair. She is still short of breath. Objective Exam Vital Signs Vital Signs Date Time Temp Pulse Resp B/P (MAP) Pulse Ox O2 Delivery O2 Flow Rate FiO2 01/15/23 19:42 36.7 High Flow N/C 6.00 01/15/23 18:00 90 16 90 01/15/23 00:00 45 Capillary Refill : Less Than 3 Seconds General Appearance: No Apparent Distress, Anxious Respiratory: No Respiratory Distress, Decreased Breath Sounds Cardiovascular: Regular Rate, Rhythm, No Murmur Gastrointestinal: Normal Bowel Sounds, Soft Extremity: Normal Inspection, No Pedal Edema Neurologic/Psychiatric: Alert, Oriented x3 Skin: Normal Color, Warm/Dry Results/Procedures Lab Laboratory Tests 01/15/23 03:34 Patient resulted labs reviewed. Imaging: Reviewed Imaging Report Assessment/Plan Assessment and Plan Assess & Plan/Chief Complaint Acute respiratory failure with hypoxia Asthma exacerbation Volume overload BiPAP as needed Supplemental oxygen as needed Continue steroids Continue Lasix TeleICU following SVT Elevated troponin HTN Tachycardia Cardiology following Metoprolol Cardizem UTI Rocephin Critical Care Critically Ill Patient Diagnosis/Problems Diagnosis/Problems (1) Acute respiratory failure with hypoxia Status: Acute (2) Asthma exacerbation Status: Acute (3) Supraventricular tachycardia Status: Acute (4) HTN (hypertension) Status: Acute (5) Anxiety Status: Acute CHRISTA KAETING MD Jan 15, 2023 19:48
[2023-01-15] MEDS: ENOXAPARIN 40 MG/0.4 ML (LOVENOX) SYR SC SCH (20:31)
[2023-01-16] MEDS: RT-IPRATROPIUM (ATROVENT) 0.5MG/2.5ML AMP IH SCH (02:26)
[2023-01-16] MEDS: RT-LEVALBUTEROL (XOPENEX) 1.25 MG/3 ML NEB NON-FORMULARY INH SCH ×6 (02:27→22:35)
[2023-01-16 04:46] LABS: HEMATOCRIT 50 % (35-52); HEMOGLOBIN 16.3 g/dL (11.5-16.0); MEAN CORPUSCULAR HEMOGLOBIN 32 pg (25-34); MEAN CORPUSCULAR HGB CONC 33 g/dL (32-36); MEAN CORPUSCULAR VOLUME 97 fL (80-99); MEAN PLATELET VOLUME 10.4 fL (9.0-12.2); PLATELET COUNT 150 10^3/uL (130-400); WHITE BLOOD COUNT 20.9 10^3/uL (4.3-11.0)
[2023-01-16 05:02] LABS: ALBUMIN 3.3 GM/DL (3.2-4.5); POTASSIUM 3.8 MMOL/L (3.6-5.0)
[2023-01-16 05:04] LABS: CALCIUM 9.3 MG/DL (8.5-10.1)
[2023-01-16 05:05] LABS: TOTAL PROTEIN 5.8 GM/DL (6.4-8.2)
[2023-01-16 05:09] LABS: CREATININE SERUM 0.72 MG/DL (0.60-1.30); PHOSPHORUS 2.8 MG/DL (2.3-4.7)
[2023-01-16 05:12] LABS: MAGNESIUM 2.6 MG/DL (1.6-2.4)
[2023-01-16 06:24] VITALS: BP 162/87
--- NOTE | 2023-01-16 07:59 | Diagnostic Imaging Report ---
Indication: Hypoxia Frontal chest obtained at 4:59 a.m. and compared to 01/14/2023. There is cardiomegaly. There is no change in bibasilar infiltrate versus atelectasis. There is a small left pleural effusion. There is no pneumothorax. Impression: Cardiomegaly. No change in bibasilar infiltrate versus atelectasis and small left pleural effusion. Dictated by: Dictated on workstation # [id number]
[2023-01-16 08:17] LABS: HEMATOCRIT 50 % (35-52); HEMOGLOBIN 16.3 g/dL (11.5-16.0); MEAN CORPUSCULAR HEMOGLOBIN 32 pg (25-34); MEAN CORPUSCULAR HGB CONC 33 g/dL (32-36); MEAN CORPUSCULAR VOLUME 97 fL (80-99); MEAN PLATELET VOLUME 10.4 fL (9.0-12.2); PLATELET COUNT 150 10^3/uL (130-400); WHITE BLOOD COUNT 20.9 10^3/uL (4.3-11.0)
[2023-01-16 08:20] LABS: BASOPHILS % (AUTO) 0 % (0-10); EOSINOPHILS % (AUTO) 4 % (0-10); LYMPHOCYTES % (AUTO) 2 % (12-44); MONOCYTES % (AUTO) 8 % (0-12); NEUTROPHILS % (AUTO) 82 % (42-75)
[2023-01-16 08:21] LABS: BASOPHILS # (AUTO) 0.1 10^3/uL (0.0-0.1); EOSINOPHILS # (AUTO) 0.9 10^3/uL (0.0-0.3); LYMPHOCYTES # (AUTO) 0.5 X 10^3 (1.0-4.0); MONOCYTES # (AUTO) 1.8 X 10^3 (0.0-1.0); NEUTROPHILS # (AUTO) 17.6 X 10^3 (1.8-7.8)
[2023-01-16 08:22] LABS: ABSOLUTE RETIC # 72 10e9/uL (24-90); RETICULOCYTE % 1.39 % (0.50-2.40)
--- NOTE | 2023-01-16 08:29 | Physical Therapy Daily Note ---
PT Daily Note-Current Subjective Patient agrees to PT. Pain Section J - Health Conditions 1. Rarely or not at all 2. Occasionally 3. Frequently 4. Almost constantly 8. Unable to answer Pain Effect on Sleep: 1 Pain Interference with Therapy: 1 Pain Interference w/Day-to-Day: 1 Mental Status Patient Orientation: Normal For Age Attachments: Oxygen Transfers SCALE: Activities may be completed with or without assistive devices. 2-Qzdghaibzf-xvwgtno completes the activity by him/herself with no assistance from a helper. 5-Set-up or Clean-up Assistance-helper sets up or cleans up; patient completes activity. Rueter assists only prior to or following the activity. 4-Supervision or Touching Assistance-helper provides verbal cues and/or touching/steadying and/or contact guard assistance as patient completes activity. Assistance may be provided throughout the activity or intermittently. 3-Partial/Moderate Assistance-helper does LESS THAN HALF the effort. Rueter lifts, holds or supports trunk or limbs, but provides less than half the effort. 2-Substantial/Maximal Assistance-helper does MORE THAN HALF the effort. Rueter lifts or holds trunk or limbs and provides more than half the effort. 3-Kkuhppfvd-ijxdnw does ALL the effort. Patient does none of the effort to complete the activity. Or, the assistance of 2 or more helpers is required for the patient to complete the activity. If activity was not attempted, code reason: 7-Patient Refused. 9-Not Applicable-not attempted and the patient did not perform the activity before the current illness, exacerbation or injury. 10-Not Attempted due to Environmental Limitations-(lack of equipment, weather restraints, etc.). 88-Not Attempted due to Medical Conditions or Safety Concerns. Lying to Sitting/Side of Bed(Q: 4 Sit to Stand (QC): 3 Chair/Sre-se-Uwwdw Xfer(QC): 3 Toilet Transfer (QC): 3 slightly unsteady due to weakness Weight Bearing Right Lower Extremity: Right Full Weight Bearing Left Lower Extremity: Left Full Weight Bearing Gait Training Distance: 5 steps x 3 sets Gait Assistive Device: FWW unsteady with PT assist Exercises Seated Therapy Exercises: Ankle pumps, Long arc quads, Hip flexion Seated Reps: 12 (x 2 sets) Assessment Patient's SAO2 decreases with minimal activity with seated recovery periods due to SOA. RN present to adjust O2 levels from 7-14L with patient recovering to 88%. PT to increase activity as tolerated by patient. PT Alf Goals Alf Goals PT Preschool Teacher'S Assistant Goals Time Frame: February 15, 2023 Roll Left & Right (QC): 6 Sit to Lying (QC): 6 Lying-Sitting on Side/Bed(QC): 6 Sit to Stand (QC): 6 Chair/Hfo-zy-Jdosr Xfer(QC): 6 Toilet Transfer (QC): 6 Does the Patient Walk: Yes Walk 10 feet (QC): 6 Walk 50ft with 2 Turns (QC): 6 Walk 150 ft (QC): 6 1 Step (curb) (QC): 4 4 Steps (QC): 4 PT Plan Treatment/Plan Treatment Plan: Continue Plan of Care Treatment Plan: Bed Mobility, Education, Functional Activity Geraldo, Functional Strength, Group Therapy, Gait, Safety, Therapeutic Exercise, Transfers Treatment Duration: February 15, 2023 Frequency: 6 times per week Estimated Hrs Per Day: .25 hour per day Patient and/or Family Agrees t: Yes Time Time In: 730 Time Out: 753 DATE: Jan 16, 2023 Total Billed Treatment Time: 23 Total Billed Treatment 1 visit FA x 2 23 min ARYAN WELLS PT Jan 16, 2023 08:29
[2023-01-16 08:30] LABS: INR 1.1 (0.8-1.4); PROTHROMBIN TIME PATIENT 14.3 SEC (12.2-14.7)
[2023-01-16] MEDS ORDERED: HOLD METFORMIN - RECEIVED CONTRAST 20 ML VIAL IV SCH (08:30)
[2023-01-16] MEDS ORDERED: IOHEXOL 350 MG/ML 100 ML (OMNIPAQUE 350) VIAL IV ONE (08:30)
[2023-01-16] MEDS ORDERED: NS 100 ML (IVPB) BAG IV ONE (08:30)
[2023-01-16 08:50] LABS: LYMPHOCYTES % (MANUAL) 1 %; NEUTROPHILS % (MANUAL) 91 %
[2023-01-16 08:51] LABS: MONOCYTES % (MANUAL) 7 %
[2023-01-16 08:52] LABS: MYELOCYTES % 1 %; RBC MORPH NORMAL
[2023-01-16 08:53] LABS: PLATELET CLUMPS NONE SEEN
[2023-01-16] MEDS: LORazepam 0.5 MG (ATIVAN) TABLET PO SCH ×2 (09:03→20:58)
[2023-01-16] MEDS: lisINopril 20 MG (PRINIVIL) TABLET PO SCH (09:03)
[2023-01-16] MEDS: meTOprolol TARTRATE 50 MG (LOPRESSOR) TAB PO SCH ×2 (09:03→20:33)
[2023-01-16] MEDS: DOCUSATE SODIUM 100 MG (COLACE) CAP PO SCH ×2 (09:03→20:55)
[2023-01-16] MEDS ORDERED: BUMETANIDE 1 MG/4 ML (BUMEX) VIAL IV NR (10:00)
[2023-01-16 10:02] VITALS: BP 171/100
--- NOTE | 2023-01-16 10:02 | Diagnostic Imaging Report ---
INDICATION: CTA chest, abdomen and pelvis Thin axial sections through the chest, abdomen and pelvis are obtained following intravenous contrast bolus. Multiplanar MIP images were reconstructed and reviewed. All CT scans use one or more of the following dose optimizing techniques: automated exposure control, MA and/or KvP adjustment based on patient size and exam type or iterative reconstruction. Comparison: CT angiogram chest on 01/10/2023. CT abdomen pelvis on 01/15/2016. FINDINGS: Included views of the chest vascular: The aorta demonstrates multifocal areas of atherosclerosis without evidence of an aortic dissection, aneurysm, or occlusion. The great vessels are patent. The celiac, SMA, and JONAH are patent. Normal caliber bilateral iliac arteries and common femoral arteries. Nonvascular: The lungs demonstrates atelectasis in the left lower lobe. No pulmonary mass. No pleural effusion or pneumothorax. No airway lesion identified. Mildly enlarged pulmonary artery. No acute pulmonary emboli identified. No lymphadenopathy within the chest. Of the liver demonstrates unchanged cyst. Multiple gallstones in the gallbladder. Spleen, adrenal glands, and pancreas are normal. The kidneys demonstrate unchanged slightly increased size of simple small to moderate bilateral renal cysts. Redemonstration uterine fibroid measuring approximately 8 cm with the areas of cystic degeneration calcification. Redemonstration of lobulated stone within the urinary bladder measuring 2.3 cm. No abdominal pelvic lymphadenopathy. The bowel is nondilated. Scattered diverticulosis of the sigmoid colon and descending colon without evidence of acute diverticulitis. No free air, loculated fluid collections, or ascites. The osseous structures demonstrate dextroconvex curvature of the lumbar spine with right lateral listhesis of L4 on L5. Moderate multifocal spinal canal narrowing . IMPRESSION: No aortic aneurysm or, occlusion, or dissection. Redemonstration of large stone within the urinary bladder. Multiple gallstones without evidence of acute cholecystitis. Diverticulosis of the sigmoid colon without evidence of acute diverticulitis. Other chronic/incidental findings as above. Dictated by: Dictated on workstation # [id number]
--- NOTE | 2023-01-16 10:54 | Tele-ICU Progress Note ---
Subjective Date Seen by a Provider: Jan 16, 2023 Time Seen by a Provider: 10:54 Subjective/Events-last exam (Tele-ICU Physician , Progress Note ) Service provided via interactive audio and video telecommunications E-CARE system to a patient admitted to ICU bed in [facility]. Patient is seen today due to persistent need of ICU care Available chart/ vitals / labs / Images reviewed Video assessment done using teleICU camera, rest of exam as per RN Discussed with RN Events overnight : was on bipap last night Afebrile hemodynamically stable Respiratory - 10 L I/O = ++ Drips: Pressors- no Hospital course: (01/10) 77 Y admitted with exacerbation of asthma, hypoxia, acute cystitis, UTI (01/12) Transfer to ICU for worsening shortness of breath on Bipap 01/15 10 L 02 off bipap, still had elevated HR and poorly controlled BP 01/16 - on VT A/P Acute resp failure ( CTCh 01/10 - neg for pe or pna ) - BIPAP 18/10 60 % rr 30 tv600 MV 15 L - seems mostly for SOB assocoated with anxiety - was on BIPAP overnight - for breakfast on 5 l NC -> 7 L today , breahting comfortably while eating , in no distress -Worsening hypoxia 01/16 - CT chest done this AM - prelim review : no large PE , small defects - ? artifact vs small PE , LLL onfitrate vs atelectasi basal . Discussed with Dr Lentz - will check ddimer , US , and con diuresis - consider ECHO with buubles to r/o shunt id measures above not helpful AECOPD - nebs , steroids SM 40 q 8 - dose as per PCP - less wheezing as per RN am assessment LLL atrelecatsi vs infiltrate - has leukocytosis ( on steroids ) , but just finished course ABX yesterday ( and does not explains severety of hyypoxia ) SVT - - as per cardiology Elev trop - likely demand - as per cardiology uncontrolled HTN -(233/144 on admission) - as per cardiology - as per notes - patient is very particulat what medications she will take - better controlled today UTI - cont abx - ceftriaxone cx pending Hemoconcentration/ eleb Hb 19.6 on admission - presumed due to chronic hypoxemia if no other Dx with explanation - to re-eval Lines : periph , (Central Line Necessity Reviewed) Diane: melchor , alexiack 4.24 OG: Nutrition: po - minimal Analgesia: Anxiety/ delirium prn ativan VTE Prophylaxis: lovenox - REFUSING Stress Ulcer Prophylaxis: na Plans in collaboration with bedside consultants and IM MDs. Discussed with RN to reach out if any questions or concerns Case and care daily discussed on multidisciplinary rounds ( RN, PharmD, Permit Review Assistant , Respiratory Therapy, housekeeping laundry worker ) A total of 25 minutes of critical care time was devoted to this patient today, required to treat and/or prevent further deterioration of critical care condition ( as above ) . I am remotely monitoring this patient from another state. I am unable to do the bedside exam, and history/physical and pertinent information is taken from other notes in the computer and bedside staff. Sepsis Event Evaluation Height, Weight, BMI Height: 5'3.00" Weight: 140lbs. 0.0oz. 63.757878pn; 23.60 BMI Method:Stated Exam Exam Patient acknowledged, consented, and participated in this virtual visit which was conducted using real time audio/video Vital Signs Date Time Temp Pulse Resp B/P (MAP) Pulse Ox O2 Delivery O2 Flow Rate FiO2 01/16/23 10:02 92 20 92 60.00 01/16/23 10:00 91 18 171/100 (123) 92 NIV Bilevel 60.00 01/16/23 09:50 NIV Bilevel 60.00 01/16/23 09:00 105 19 174/97 (122) 92 Vapotherm 40.00 100.00 01/16/23 08:30 90 Vapotherm 40.00 100.00 01/16/23 08:05 89 Vapotherm 40.00 100 01/16/23 08:00 107 21 166/79 (108) 86 Vapotherm 40.00 100.00 01/16/23 08:00 36.2 01/16/23 07:13 73 01/16/23 07:00 77 19 89 High Flow N/C 7.00 01/16/23 06:24 36.2 85 88 01/16/23 06:22 88 High Flow N/C 6.00 01/16/23 06:17 High Flow N/C 7.00 01/16/23 06:00 85 12 162/87 (112) 88 High Flow N/C 6.00 01/16/23 05:32 High Flow N/C 6.00 01/16/23 05:00 73 20 180/85 (116) 89 NIV Bilevel 45.00 01/16/23 04:07 36.2 NIV Bilevel 45.00 01/16/23 04:06 90 NIV Bilevel 45 01/16/23 04:00 83 24 137/76 (96) 88 NIV Bilevel 45.00 01/16/23 03:08 NIV Bilevel 45.00 01/16/23 03:00 86 19 162/81 (108) 91 High Flow N/C 6.00 01/16/23 02:27 91 High Flow N/C 6.00 01/16/23 02:00 71 23 159/85 (109) 90 High Flow N/C 6.00 01/16/23 01:00 70 01/16/23 01:00 73 24 136/87 (103) 91 High Flow N/C 6.00 01/16/23 00:00 69 20 147/91 (109) 90 High Flow N/C 6.00 01/16/23 00:00 91 High Flow N/C 6.00 01/15/23 23:30 36.6 High Flow N/C 6.00 01/15/23 23:00 65 22 141/81 (101) 91 High Flow N/C 6.00 01/15/23 22:01 91 High Flow N/C 7.00 01/15/23 22:00 69 19 136/76 (96) 91 High Flow N/C 6.00 01/15/23 21:00 79 16 137/78 (97) 91 High Flow N/C 6.00 01/15/23 20:00 92 High Flow N/C 6.00 01/15/23 20:00 93 15 156/88 (110) 93 High Flow N/C 6.00 01/15/23 19:42 36.7 High Flow N/C 6.00 01/15/23 19:00 98 24 163/93 (116) 90 High Flow N/C 6.00 01/15/23 19:00 109 01/15/23 18:31 High Flow N/C 6.00 01/15/23 18:00 90 16 155/96 (115) 90 High Flow N/C 10.00 01/15/23 17:09 36.2 01/15/23 17:00 82 20 151/84 (106) 90 High Flow N/C 10.00 01/15/23 16:30 84 21 164/91 (115) 91 High Flow N/C 10.00 01/15/23 15:07 92 High Flow N/C 10.00 01/15/23 14:00 100 21 157/80 (105) 94 High Flow N/C 10.00 01/15/23 12:34 89 01/15/23 12:00 NIV Bilevel 01/15/23 12:00 36.9 01/15/23 12:00 88 25 173/104 (127) 92 High Flow N/C 10.00 01/15/23 11:30 92 High Flow N/C 10.00 01/15/23 11:00 95 25 163/111 (128) 95 High Flow N/C 10.00 I & O 01/16/23 07:00 Intake Total 840 ml Output Total 725 ml Balance 115 ml Height & Weight Height: 5'3.00" Weight: 140lbs. 0.0oz. 63.335509vh; 23.60 BMI Method:Stated General Appearance: No Apparent Distress, Anxious Respiratory: No Respiratory Distress, Decreased Breath Sounds Cardiovascular: Regular Rate, Rhythm, No Murmur Capillary Refill: Less Than 3 Seconds Gastrointestinal: normal bowel sounds, non tender, soft, no organomegaly, no pulsatile mass Extremity: Normal Inspection, No Pedal Edema Neurologic/Psychiatric: Alert, Oriented x3 Skin: Normal Color, Warm/Dry Results Lab Laboratory Tests 01/15/23 03:34 01/16/23 03:56 Assessment/Plan Assessment/Plan 1 LETICIA KAPADIA MD Jan 16, 2023 10:54
--- NOTE | 2023-01-16 11:50 | Diagnostic Imaging Report ---
PROCEDURE: US Venous Lower Ext Mookie. TECHNIQUE: Multiple real-time grayscale images were obtained over the lower extremities in various projections, bilaterally. Additional duplex Doppler and color Doppler images were also obtained. INDICATION: Elevated D-dimer. There is no evidence of right or left lower extremity DVT. Both lower extremity deep venous systems demonstrate normal compressibility with normal response to augmentation and Valsalva. No fluid collection or mass is detected. IMPRESSION: No evidence of right or left lower extremity DVT. Dictated by: Dictated on workstation # [id number]
[2023-01-16] MEDS: LORazepam 1 MG (ATIVAN) TAB PO PRN ×2 (13:57→20:33)
[2023-01-16 14:10] VITALS: BP 144/88
--- NOTE | 2023-01-16 16:44 | Progress Note - Cardiology ---
Cardiology SOAP Progress Note Subjective: Still very short of breath No cp or palp or syncope No n/v/d No focal weakness Gen malaise present Objective: I&O/Vital Signs 01/16/23 01/16/23 01/16/23 01/16/23 05:00 05:32 06:00 06:17 Pulse 73 85 Resp 20 12 B/P (MAP) 180/85 (116) 162/87 (112) Pulse Ox 89 88 O2 Delivery NIV Bilevel High Flow N/C High Flow N/C High Flow N/C O2 Flow Rate 45.00 6.00 6.00 7.00 01/16/23 01/16/23 01/16/23 01/16/23 06:22 06:24 07:00 07:13 Temp 36.2 Pulse 85 77 73 Resp 19 B/P (MAP) Pulse Ox 88 88 89 O2 Delivery High Flow N/C High Flow N/C O2 Flow Rate 6.00 7.00 01/16/23 01/16/23 01/16/23 01/16/23 08:00 08:00 08:00 08:05 Temp 36.2 Pulse 107 Resp 21 B/P (MAP) 166/79 (108) Pulse Ox 86 89 O2 Delivery Vapotherm Vapotherm Vapotherm O2 Flow Rate 40.00 40.00 40.00 100.00 FiO2 100 100 01/16/23 01/16/23 01/16/23 01/16/23 08:30 09:00 09:50 10:00 Pulse 105 91 Resp 19 18 B/P (MAP) 174/97 (122) 171/100 (123) Pulse Ox 90 92 92 O2 Delivery Vapotherm Vapotherm NIV Bilevel NIV Bilevel O2 Flow Rate 40.00 40.00 60.00 60.00 100.00 100.00 01/16/23 01/16/23 01/16/23 01/16/23 10:02 11:00 12:00 12:00 Temp 36.2 Pulse 92 85 81 Resp 20 21 19 B/P (MAP) 178/104 (128) 160/94 (116) Pulse Ox 92 93 93 O2 Delivery NIV Bilevel NIV Bilevel O2 Flow Rate 60.00 60.00 60.00 01/16/23 01/16/23 01/16/23 01/16/23 12:00 12:12 13:00 14:00 Pulse 84 83 77 Resp 22 11 B/P (MAP) 150/95 (113) 144/88 (106) Pulse Ox 96 95 O2 Delivery NIV Bilevel NIV Bilevel NIV Bilevel O2 Flow Rate 60.00 60.00 FiO2 60 01/16/23 01/16/23 01/16/23 01/16/23 14:10 15:00 16:00 16:00 Temp 36.2 Pulse 72 78 77 Resp 19 18 23 B/P (MAP) 130/78 (95) 148/88 (108) Pulse Ox 94 95 94 O2 Delivery NIV Bilevel NIV Bilevel O2 Flow Rate 60.00 60.00 60.00 01/16/23 00:00 Intake Total 480 ml Output Total 300 ml Balance 180 ml Weight (Pounds): 140 Weight (Ounces): 0.0 Weight (Calculated Kilograms): 63.401081 Constitutional: AAO x 3, well-developed, well-nourished, other (on BiPAP) Respiratory: accessory muscle use, chest expansion is symmetric, chest is bilaterally symmetric, rhonchi, wheezing Cardiovascular: regular rate-rhythm, S1 and S2, systolic murmur (soft CAMRYN at card base) Gastrointestional: No tender; soft; No guarding, No rebound; audible bowel sounds Extremities: No clubbing, No cyanosis, No significant edema Neurologic/Psychiatric: oriented x 3, other (moves all limbs equally) Skin: No rash on exposed areas, No ulcerations on exposed areas Results/Procedures: Labs Laboratory Tests 01/16/23 03:56: White Blood Count 20.9H, Red Blood Count 5.17H, Hemoglobin 16.3H, Hematocrit 50, Mean Corpuscular Volume 97, Mean Corpuscular Hemoglobin 32, Mean Corpuscular Hemoglobin Concent 33, Red Cell Distribution Width 15.3H, Platelet Count 150, Mean Platelet Volume 10.4, Immature Granulocyte % (Auto) 3, Neutrophils (%) (Auto) 82H, Lymphocytes (%) (Auto) 2L, Monocytes (%) (Auto) 8, Eosinophils (%) (Auto) 4, Basophils (%) (Auto) 0, Neutrophils # (Auto) 17.6H, Lymphocytes # (Auto) 0.5L, Monocytes # (Auto) 1.8H, Eosinophils # (Auto) 0.9H, Basophils # (Auto) 0.1, Immature Granulocyte # (Auto) 0.6H, Neutrophils % (Manual) 91, Lymphocytes % (Manual) 1, Monocytes % (Manual) 7, Myelocytes % 1, Clumped Platelets NONE SEEN, Percent Immature Platelet Fraction 7.9H, Blood Morphology Comment NORMAL, Absolute Reticulocyte Count 72, Percent Reticulocyte Count 1.39, Prothrombin Time 14.3, INR Comment 1.1, D-Dimer 6.70H, Sodium Level 143, Pota ssium Level 3.8, Chloride Level 101, Carbon Dioxide Level 29, Anion Gap 13, Blood Urea Nitrogen 34H, Creatinine 0.72, Estimat Glomerular Filtration Rate 86, BUN/Creatinine Ratio 47, Glucose Level 136H, Calcium Level 9.3, Corrected Calcium 9.9, Phosphorus Level 2.8, Magnesium Level 2.6H, Total Bilirubin 1.0, Aspartate Amino Transf (AST/SGOT) 23, Alanine Aminotransferase (ALT/SGPT) 43, Alkaline Phosphatase 51, Total Protein 5.8L, Albumin 3.3 Microbiology 01/10/23 Urine Culture - Final, Complete Mixed Bacterial [place] 01/10/23 Blood Culture - Preliminary, Resulted No growth Laboratory Tests 01/15/23 03:34 01/16/23 03:56 A/P: Assessment: SVT: - Diagnosed greater than 15 years ago in [facility]. - AVRT vs AVnRT (terminated by immersing her head in a bucket of ice cold water). - TSH and Free T4 within normal limits. - Beta-jean reduced (due to asthma) and long-acting diltiazem added during this hosp BNP mildlly elevated at 133 - likely related to exac of asthma and PSVT - Echo on 01/13/23: moderate concentric hypertrophy. Systolic function is hyperdynamic. The estimated ejection fraction is 65-70%. Grade 1 diastolic dysfunction. PASP could not be estimated SOB: likely ashtma - managed by the Hosp ce HTN - fair control Mildly elevated troponin - likely Type 2 CO secondary to HTN (233/144 on admission) and tachycardia and asthma exacerbation Plan: * continue current cardiac regimen; bb reduced due to asthma and reactive airways; calcium channel jean added to control SVT; SVT appears well controlled on this regimen * monitor labs closely * too short of breath to be transferred out of ICU; hospitalist svce managing ELINA STEPHENS MD FACP FAC CCDS Jan 16, 2023 16:44
[2023-01-16] MEDS: BUMETANIDE 1 MG/4 ML (BUMEX) VIAL IV SCH (16:51)
[2023-01-16] MEDS: ACETAMINOPHEN 325 MG TABLET PO PRN (16:51)
[2023-01-16 18:23] VITALS: BP 162/82
--- NOTE | 2023-01-16 18:31 | Discharge Summary ---
Discharge Summary Hospital Course Problems/Dx: (1) Acute respiratory failure with hypoxia Status: Acute (2) Asthma exacerbation Status: Acute (3) Supraventricular tachycardia Status: Acute (4) HTN (hypertension) Status: Acute (5) Anxiety Status: Acute Hospital Course Date of Admission: Jan 10, 2023 at 20:51 Admission Diagnosis : Acute respiratory failure with hypoxia Family Physician/Provider: Ester Allred MD Date of Discharge: 01/16/23 Discharge Diagnosis: Acute respiratory failure with hypoxia Hospital Course: Cathleen Kay is a 77 year old female with PMH HTN, SVT, asthma, who presented wit h acute hypoxic respiratory failure. TeleICU was consulted and assisted with her care. Her imaging was negative. She was thought to have an asthma exacerbation. She was given IV steroids and breathing treatments. Despite days of treatment, she failed to improve. She was started on diuresis with no improvement. She had a repeat CT chest which did not reveal any acute abnormalities. She was transferred to [facility] for pulmonology evaluation due to worsening respiratory failure. Labs and Pending Lab Test: Laboratory Tests 01/16/23 03:56: White Blood Count 20.9H, Red Blood Count 5.17H, Hemoglobin 16.3H, Hematocrit 50, Mean Corpuscular Volume 97, Mean Corpuscular Hemoglobin 32, Mean Corpuscular Hemoglobin Concent 33, Red Cell Distribution Width 15.3H, Platelet Count 150, Mean Platelet Volume 10.4, Immature Granulocyte % (Auto) 3, Neutrophils (%) (Auto) 82H, Lymphocytes (%) (Auto) 2L, Monocytes (%) (Auto) 8, Eosinophils (%) (Auto) 4, Basophils (%) (Auto) 0, Neutrophils # (Auto) 17.6H, Lymphocytes # (Auto) 0.5L, Monocytes # (Auto) 1.8H, Eosinophils # (Auto) 0.9H, Basophils # (Auto) 0.1, Immature Granulocyte # (Auto) 0.6H, Neutrophils % (Manual) 91, L ymphocytes % (Manual) 1, Monocytes % (Manual) 7, Myelocytes % 1, Clumped Platelets NONE SEEN, Percent Immature Platelet Fraction 7.9H, Blood Morphology Comment NORMAL, Absolute Reticulocyte Count 72, Percent Reticulocyte Count 1.39, Prothrombin Time 14.3, INR Comment 1.1, D-Dimer 6.70H, Sodium Level 143, Potassium Level 3.8, Chloride Level 101, Carbon Dioxide Level 29, Anion Gap 13, Blood Urea Nitrogen 34H, Creatinine 0.72, Estimat Glomerular Filtration Rate 86, BUN/Creatinine Ratio 47, Glucose Level 136H, Calcium Level 9.3, Corrected Calcium 9.9, Phosphorus Level 2.8, Magnesium Level 2.6H, Total Bilirubin 1.0, Aspartate Amino Transf (AST/SGOT) 23, Alanine Aminotransferase (ALT/SGPT) 43, Alkaline Phosphatase 51, Total Protein 5.8L, Albumin 3.3 Microbiology 01/10/23 Urine Culture - Final, Complete Mixed Bacterial [place] 01/10/23 Blood Culture - Final, Complete No growth Home Meds Active Reported Clonidine HCl 0.1 Mg Tablet 0.1 Mg PO TID PRN Lisinopril 10 Mg Tablet 10 Mg PO DAILY Ventolin Hfa (Albuterol Sulfate) 1 Puff Puff 2 Puff INH Q4H PRN Levalbuterol HCl 1.25 Mg/3 Ml Vial.neb 1.25 Mg IH Q4H PRN Vitamin D3 (Cholecalciferol (Vitamin D3)) 25 Mcg (1000 Unit) Tablet 25 Mcg PO DAILY Ativan (Lorazepam) 1 Mg Tablet 1 Mg PO Q6H PRN Metoprolol Tartrate 50 Mg Tablet 50-100 Mg PO BID TAKES 1 TO 2 (50MG) TABS Assessment/Pt Instructions Transferred to [facility] for continued care Discharge Planning: >30 minutes discharge planning Discharge Instructions Discharge Diet: No Restrictions Activity as Tolerated: Yes Discharge Physical Examination Vital Signs Vital Signs Date Time Temp Pulse Resp B/P (MAP) Pulse Ox O2 Delivery O2 Flow Rate FiO2 01/16/23 18:00 89 20 162/82 (108) 95 NIV Bilevel 60.00 01/16/23 16:00 60 01/16/23 16:00 36.2 General Appearance: Anxious, Mild Distress Respiratory: Decreased Breath Sounds, Respiratory Distress (tachypnea) Cardiovascular: Regular Rate, Rhythm, No Murmur Gastrointestinal: Normal Bowel Sounds, Soft Extremity: Normal Inspection, No Pedal Edema Skin: Normal Color, Warm/Dry Neurologic/Psychiatric: Alert, Normal Mood/Affect Allergies: Coded Allergies: codeine (Verified Allergy, Unknown, 03/23/08) gatifloxacin (Verified Allergy, Unknown, 03/23/08) nitrofurantoin (Verified Allergy, Unknown, 03/23/08) Copy Copies To 1: ESTER ALLRED MD Discharge Summary Date of Admission Jan 10, 2023 at 20:51 Date of Discharge Discharge Date: Jan 16, 2023 Discharge Time: 12:00 Admission Diagnosis Acute hypoxic respiratory failure due to asthma exacerbation Consults/Procedures Consulations TeleICU, Cardiology Discharge Diagnosis Acute respiratory failure with hypoxia Asthma exacerbation Volume overload SVT Elevated troponin HTN Tachycardia UTI (1) Acute respiratory failure with hypoxia Status: Acute (2) Asthma exacerbation Status: Acute (3) Supraventricular tachycardia Status: Acute (4) HTN (hypertension) Status: Acute (5) Anxiety Status: Acute CHRISTA KEATING MD Jan 16, 2023 18:30
[2023-01-16] MEDS: ENOXAPARIN 40 MG/0.4 ML (LOVENOX) SYR SC SCH (20:55)
[2023-01-16 22:36] VITALS: BP 127/82
[2023-01-17 02:50] VITALS: BP 137/75
[2023-01-17] MEDS: RT-LEVALBUTEROL (XOPENEX) 1.25 MG/3 ML NEB NON-FORMULARY INH SCH ×2 (02:50→07:00)
[2023-01-17] MEDS: ACETAMINOPHEN 325 MG TABLET PO PRN (03:55)
[2023-01-17] MEDS: LORazepam 1 MG (ATIVAN) TAB PO PRN (03:55)
[2023-01-17 04:28] LABS: HEMATOCRIT 54 % (35-52); HEMOGLOBIN 17.7 g/dL (11.5-16.0); MEAN CORPUSCULAR HEMOGLOBIN 32 pg (25-34); MEAN CORPUSCULAR HGB CONC 33 g/dL (32-36); MEAN CORPUSCULAR VOLUME 97 fL (80-99); MEAN PLATELET VOLUME 11.2 fL (9.0-12.2); PLATELET COUNT 151 10^3/uL (130-400)
[2023-01-17 04:32] LABS: WHITE BLOOD COUNT 30.6 10^3/uL (4.3-11.0)
[2023-01-17 04:45] LABS: ALBUMIN 3.7 GM/DL (3.2-4.5); BILIRUBIN,TOTAL 1.6 MG/DL (0.1-1.0); CALCIUM 9.7 MG/DL (8.5-10.1); CREATININE SERUM 0.93 MG/DL (0.60-1.30); MAGNESIUM 2.5 MG/DL (1.6-2.4); POTASSIUM 3.5 MMOL/L (3.6-5.0); TOTAL PROTEIN 6.5 GM/DL (6.4-8.2)
[2023-01-17] MEDS ORDERED: NS IV 500 ML 500 ML IV PRN (06:00)
[2023-01-17] MEDS ORDERED: POTASSIUM CL 10MEQ/50ML IVPB 50 ML IV SCH (06:00)
[2023-01-17] MEDS ORDERED: MAGNESIUM 1 GM/100 ML IVPB 100 ML IV SCH (06:00)
[2023-01-17] MEDS ORDERED: KCL 20 MEQ TAB (K-DUR) PO SCH (06:00)
[2023-01-17] MEDS: POTASSIUM BICARB 20 MEQ (EFFER-K) TABLET PO SCH ×2 (06:36→07:41)
[2023-01-17] MEDS: BUMETANIDE 1 MG/4 ML (BUMEX) VIAL IV SCH (06:36)
[2023-01-17 07:00] VITALS: BP 147/69
[2023-01-17] MEDS ORDERED: LORazepam INJ 2 MG/ML (ATIVAN) VIAL ONE (07:36)
--- NOTE | 2023-01-17 07:39 | Physical Therapy Progress Note ---
Therapy Progress Note Patient on Hold per RN due to current medical status. Per RN, the plan is for the patient to transfer to OSH for higher level of care. PT will continue to check patient status and resume skilled PT when deemed medically stable. ARYAN WELLS PT Jan 17, 2023 07:39
[2023-01-17] MEDS: lisINopril 20 MG (PRINIVIL) TABLET PO SCH (07:41)
[2023-01-17] MEDS: LORazepam 0.5 MG (ATIVAN) TABLET PO SCH (07:41)
[2023-01-17] MEDS: meTOprolol TARTRATE 50 MG (LOPRESSOR) TAB PO SCH (07:42)
[2023-01-17] MEDS ORDERED: LORazepam INJ 2 MG/ML (ATIVAN) VIAL IVP ONE ×2 (07:45→08:45)
--- NOTE | 2023-01-17 08:30 | Diagnostic Imaging Report ---
EXAMINATION: Chest 1 view HISTORY: Respiratory failure. COMPARISON: 01/16/2023 FINDINGS: Heart size and pulmonary vasculature are normal. There is a small left pleural effusion. Mild interstitial opacities in the lung bases. No pneumothorax. The osseous structures are intact. IMPRESSION: 1. Stable small left pleural effusion with bibasilar interstitial opacities. Dictated by: Dictated on workstation # [id number]
[2023-01-17] MEDS: DOCUSATE SODIUM 100 MG (COLACE) CAP PO SCH (08:48)
[2023-01-17 09:39] VITALS: BP 136/94
[2023-01-17 15:05] LABS: PARAINFLU 1 PCR Not Detected (Not Detected); PARAINFLU 2 PCR Not Detected (Not Detected); RSV PCR TEST Not Detected (Not Detected)
--- NOTE | 2023-01-22 22:28 | Physician Query Clarification ---
PQ-Uncertain Diagnosis Admission/Discharge Admission Date: Jan 10, 2023 at 20:51 Discharge Date: Jan 17, 2023 at 09:30 The medical record reflects the following clinical scenario: History/Risk Factors: 77 y/o female patient admitted with acute respiratory failure with hypoxia due to asthma exacerbation, incidentally found UTI, sepsis was documented in medical record. H and P, 01/10: Acute hypoxic respiratory failure due to asthma exacerbation, sepsis due to UTI. Progress notes, 01/13: Acute on chronic hypoxic respiratory failure due to asthma exacerbation, UTI, atrial tachycardia. Clinical Findings: Wbc-17. 0 H, pulse-140, temp-36.7, resp-39, blood cultures- no growth Treatment: IV steroids, IV Rocephin. Question: Is Sepsis a clinically valid diagnosis? Sepsis was documented in the H and P, 01/10 with no further documentation in the medical record. Please document a response in Progress Note or Discharge Summary. 1. Yes, clinically valid, condition resolved. 2. No, condition ruled out. 3. Other, with explanation of clinical findings. 4. Undetermined, no explanation for clinical findings. PHYSICIAN RESPONSE Diagnosis clinically valid: Yes, Conditon resolved In responding to this query, please exercise your independent professional judgment. The purpose of this communication is to more accurately reflect the complexity of your patients condition. The fact that a question is asked does not imply that any particular answer is desired or expected. Thank you for your timely response to this clarification. Requestors name: [ ] Phone # [ ] THIS PHYSICIAN QUERY FORM IS A PERMANENT PART OF THE MEDICAL RECORD MURRAY HAY January 22, 2023 22:28 CHRISTA KEATING MD January 29, 2023 18:21
== END 2023-01-17 09:30 | disposition short-term general hospital (02) | DRG 871 ==
LOC: EDUNIT# 17:53 → ER 17:55 → CSD 20:51 → ICU 01-12 15:40
PROVIDERS: ADMIT Family Medicine; ATTEND Internal Medicine
PROC: 5A09357 Assistance with Respiratory Ventilation, Less than 24 Consecutive Hours, Continuous Positive Airway Pressure (ICD-10-PCS; principal; 2023-01-14)
PROC: 5A0935A Assistance with Respiratory Ventilation, Less than 24 Consecutive Hours, High Flow/Velocity Cannula (ICD-10-PCS; 2023-01-14)
DX: A41.9 Sepsis, unspecified organism (principal); J96.01 Acute respiratory failure with hypoxia; N39.0 Urinary tract infection, site not specified; J45.901 Unspecified asthma with (acute) exacerbation; I47.1 Supraventricular tachycardia; G93.40 Encephalopathy, unspecified; J44.9 Chronic obstructive pulmonary disease, unspecified; I10 Essential (primary) hypertension; Z87.891 Personal history of nicotine dependence; K21.9 Gastro-esophageal reflux disease without esophagitis; F41.9 Anxiety disorder, unspecified; F32.A Depression, unspecified; M19.90 Unspecified osteoarthritis, unspecified site; Z20.822 Contact with and (suspected) exposure to COVID-19; E87.70 Fluid overload, unspecified; R77.8 Other specified abnormalities of plasma proteins
CPT/HCPCS: 36415; 71045; 71275; 74177; 80053; 81000; 82805; 83605; 83735; 83880; 84100; 84439; 84443; 84484; 85007; 85027; 85045; 85055; 85379; 85610; 87040; 87088; 87632; 87636; 93005; 93306; 93970; 94640; 94660; 96374; 96375

== ENCOUNTER 2023-02-05 09:40 | Inpatient (IN) | payer OTHER, MEDICARE ==
[~2023-02-05] VITALS: Ht 162.5 cm; Wt 60.8 kg
[~2023-02-05 09:40] MED LIST changes: +LISI10TA25 PO
[2023-02-14] MEDS ORDERED: diphenhydrAMINE 25 MG TAB (BENADRYL) PO PRN (11:00)
[2023-02-14] MEDS ORDERED: DOCUSATE SODIUM 100 MG (COLACE) CAP PO PRN (11:00)
[2023-02-14] MEDS ORDERED: LACTULOSE SYRUP 10GM/15ML (ENULOSE) 30ML UDC PO PRN (11:00)
[2023-02-14] MEDS ORDERED: FLEET ENEMA ADULT 1 EA BTL PR PRN (11:00)
[2023-02-14] MEDS ORDERED: MELATONIN 3 MG TABLET PO PRN (11:00)
[2023-02-14] MEDS ORDERED: CALCIUM CARBONATE 500 MG (TUMS) TAB.CHEW PO PRN (11:00)
[2023-02-14] MEDS ORDERED: ACETAMINOPHEN 325 MG TABLET PO PRN (11:00)
[2023-02-14] MEDS ORDERED: ALPRAZolam 0.25 MG (XANAX) TAB PO PRN (11:00)
[2023-02-14] MEDS ORDERED: LOPERAMIDE 2 MG (IMODIUM) TABLET PO PRN (11:00)
[2023-02-14] MEDS ORDERED: BISACODYL 10 MG SUPP (DULCOLAX) PR PRN (11:00)
--- NOTE | 2023-02-14 11:00 | PM&R Post Admission Assessment ---
PM&R Date of Visit: February 14, 2023 Time of Visit: 18:00 History of Present Illness CC: COPD myopathy HPI: This is a 77yoWF clinic patient of Dr Michael who presents from [facility] after a long stay following a short course here but required transfer to [facility] for higher level of care due to respiratory failure and complicated ID case which included Pseudomonas lung abscesses currently on Cefepime. She has multiple medical issues including DM CHF and SVT and did have a NSTEMI during the course. Her course included severe sepsis/shock with pleural effusions and leukocytosis improving. PLOF was independent with no AD and caregiver for disabled son and lives at home with her spouse. I did speak to ID specialist Dr Gomez yesterday regarding her extensive history and he was comfortable with her moving to [facility] without ID coverage and he is available if needed. Currently she is very debilitated. She appears to be very weak lying on her left side. O2 maintained. at bedside and I updated him on medication details whcih he requested. Admit HPI from [facility]: Patient is a 77-year-old female with past medical history of hypertension, SVT, asthma, anxiety who presented to the emergency department due to shortness of breath. States she has a long history of asthma and will frequently need rounds of steroids to help with this. She started feeling short of breath over the past few days called her primary care physician for this and was sent steroids. She had been compliant with those and had been using her inhaler "too much" and despite this continued to worsen. She presented to the emergency department because she had to use her son's oxygen to keep her oxygen levels up. He does complain of a cough though this is relatively unchanged from her baseline cough. In the emergency room she was found to be hypoxic with sats in the high 80s which resolved with nasal cannula. She was found to have an intermittent tachycardia though. There were unable to catch this on EKG though it appeared narrow complex per the emergency room. She was also incidentally found to have a urinary tract infection. She was admitted to the hospital for further management of her asthma and UTI and for cardiology consultation given her intermittent tachycardia. This morning she reports feeling somewhat better though was frustrated overnight due to it being hot in her room and not having her normal medicines but that did improve when she got an Ativan. She is concerned about why she needs oxygen. We discussed the pathophysiology of asthma and bronchospasm and that we will attempt to wean her off oxygen if able and continue to treat her with steroids and Xopenex. (1) Acute respiratory failure with hypoxia Status: Acute (2) Asthma exacerbation Status: Acute (3) Supraventricular tachycardia Status: Acute (4) HTN (hypertension) Status: Acute (5) Anxiety Status: Acute Hospital Course Date of Admission: Jan 10, 2023 at 20:51 Admission Diagnosis : Acute respiratory failure with hypoxia Family Physician/Provider: Tim Michael MD Date of Discharge: 01/16/23 Discharge Diagnosis: Acute respiratory failure with hypoxia Hospital Course: Cathleen Kay is a 77 year old female with PMH HTN, SVT, asthma, who presented with acute hypoxic respiratory failure. TeleICU was consulted and assisted with her care. Her imaging was negative. She was thought to have an asthma exacerbation. She was given IV steroids and breathing treatments. Despite days of treatment, she failed to improve. She was started on diuresis with no improvement. She had a repeat CT chest which did not reveal any acute abnorma lities. She was transferred to [facility] for pulmonology evaluation due to worsening respiratory failure. Past Irtannd-Qjdizc-Qanhxp Hx Past Med/Social Hx: Reviewed Nursing Past Med/Soc Hx, Reviewed and Corrections made Patient Social History Marrital Status: Employed/Student: retired Alcohol Use: Denies Use Smoking Status: Former Smoker 2nd Hand Smoke Exposure: Yes Recent Hopitalizations: No Immunizations Up To Date Tetanus Booster (TDap): Unknown Pediatric: Yes Seasonal Allergies Seasonal Allergies: Yes Past Medical History Surgeries: Appendectomy Respiratory: COPD, Pneumonia Currently Using CPAP: No Currently Using BIPAP: No Cardiac: 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, Irregular Heartbeat Reproductive: No Sexually Transmitted Disease: No Female Reproductive Disorders: Denies 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 Genitourinary: Renal Failure Gastrointestinal: Gastroesophageal Reflux Musculoskeletal: Arthritis, Fractures Psychosocial: Anxiety, Depression History of Blood Disorders: No Family History Dementia 19 MOTHER, , Age:88, Onset:60 years & older FH: CAD (coronary artery disease) 19 FATHER, , Age:64, Onset:60 years & older FH: CHF (congestive heart failure) 19 MOTHER, , Age:88, Onset:60 years & older Myocardial infarction 19 MOTHER, , Age:88, Onset:50's - 60 No Family History of: AIDS Abdominal aortic aneurysm Saqib's disease Alcoholism Alzheimer's disease Aphasia Arthritis Asthma Cancer of mouth Cardiovascular disease Cataracts Colon cancer Completed stroke Congenital disease Congenital heart disease Coronary thrombosis Cystic fibrosis Deafness or hearing loss Diabetes mellitus Drug abuse Dysphasia Fibrocystic disease of breast Gastroenteritis Glaucoma Headache disorder Hypercholesterolemia 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 Infertility Kidney disease Neoplasm Not obtainable due to adoption Osteoporosis Parkinson's disease Prostate cancer Psychosocial problem Respiratory disorder Seizure disorder Severe allergy Thyroid disease Tuberculosis Visual disorder Heart Disease, Diabetes, 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 PM&R Allergy/Meds/Data Review Allergies Coded Allergies: codeine (Verified Allergy, Unknown, 03/23/08) gatifloxacin (Verified Allergy, Unknown, 03/23/08) nitrofurantoin (Verified Allergy, Unknown, 03/23/08) Home Medications Scheduled Alteplase (Cathflo Activase), 2 MG IJ UD, (Reported) Aspirin (Aspirin), 325 MG PO DAILY, (Reported) Cefepime HCl/Dextrose, Iso-Osm (Cefepime 1 gm Injection), 1 GM IV Q6H, (Reported) Diltiazem HCl (Tiazac), 240 MG PO DAILY, (Reported) Guaifenesin (Mucinex), 1,200 MG PO BID, (Reported) Heparin Sodium,Porcine/Pf (Heparin Sod 5,000 Unit/ml Syrg), 5,000 UNIT IJ Q12H, (Reported) L. Rhamnosus GG/Inulin (Culturelle Capsule), 1 EACH PO DAILY, (Reported) Lisinopril (Lisinopril), 30 MG PO DAILY, (Reported) Montelukast Sodium (Montelukast Sodium), 10 MG PO HS, (Reported) Pantoprazole Sodium (Pantoprazole Sodium), 40 MG PO DAILY, (Reported) Revefenacin (Yupelri), 175 MCG IH DAILY, (Reported) Sertraline HCl (Sertraline HCl), 50 MG PO DAILY, (Reported) Trazodone HCl (Trazodone HCl), 50 MG PO HS, (Reported) Scheduled PRN Acetaminophen (Tylenol Extra Strength), 1,000 MG PO Q6H PRN for PAIN-MILD (1-4), (Reported) Albuterol Sulfate (Ventolin Hfa), 2 PUFF INH QID PRN for SHORTNESS OF BREATH, (Reported) Albuterol Sulfate (Albuterol Sulfate), 1.25 MG INH Q4H PRN for SHORTNESS OF BREATH, (Reported) Hydroxyzine HCl (Hydroxyzine HCl), 10 MG PO TID PRN for ANXIETY, (Reported) Lorazepam (Ativan), 0.25 MG PO Q6H PRN for ANXIETY, (Reported) Discontinued Medications Lisinopril (Lisinopril), 10 MG PO DAILY, (Reported) Discontinued Reason: Prescription changed Lorazepam (Ativan), 1 MG PO Q6H PRN for ANXIETY, (Reported) Discontinued Reason: Prescription changed Current Medications Current Medications Reviewed Review of Systems Constitutional: see HPI, dizziness, malaise, weakness EENTM: no symptoms reported Respiratory: dyspnea on exertion, short of breath Cardiovascular: no symptoms reported Gastrointestinal: abdominal pain, loss of appetite, nausea Genitourinary: no symptoms reported Musculoskeletal: back pain Skin: no symptoms reported Psychiatric/Neurological: No Symptoms Reported All Other Systems Reviewed Negative Unless Noted: Yes Physical Exam Physical Exam Vital Signs Capillary Refill : Height, Weight, BMI Height: 5'3.00" Weight: 140lbs. 0.0oz. [id number]; 23.97 BMI Method:Stated General Appearance: No Apparent Distress, WD/WN, Chronically ill, Other (very weak and debilitated) Eyes: Bilateral Eye Normal Inspection, Bilateral Eye PERRL HEENT: PERRL/EOMI, Normal ENT Inspection, Pharynx Normal Neck: Full Range of Motion, Normal Inspection, Non Tender, Supple, Carotid Bruit Respiratory: Chest Non Tender, Lungs Clear, Normal Breath Sounds, No Accessory Muscle Use, No Respiratory Distress, Decreased Breath Sounds Cardiovascular: Regular Rate, Rhythm, No Edema, No Gallop, No JVD, No Murmur, Normal Peripheral Pulses Gastrointestinal: Normal Bowel Sounds, No Organomegaly, No Pulsatile Mass, Non Tender, Soft Back: Normal Inspection, No CVA Tenderness, No Vertebral Tenderness Extremity: Normal Capillary Refill, Normal Inspection, Normal Range of Motion, Non Tender, No Calf Tenderness, No Pedal Edema Neurologic/Psychiatric: Alert, Oriented x3, nursery helper II-XII Norm as Tested, Depressed Affect, Motor Weakness (generalized severe in nature) Skin: Normal Color, Warm/Dry Lymphatic: No Adenopathy PM&R Medical Assessment & Plan REHAB/MEDICAL ASSESSMENT AND PLAN: REHAB 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 The comorbidities that impact the patients function and/or functional outcome by: severe debility, weakness, myopathy, cavitary lung lesions, Pseudomonas infection REHAB PLAN: The patient is being admitted to our comprehensive inpatient rehabilitation facility and can tolerate the intensity of service consisting of at least: 180 minutes of therapy a day, 5 out of 7 days a week Rehab treatment will consist of: PT and OT will focus on regaining function with assistive devices to increase ambulatory stamina increase independence in ADLs The patient/family has a good understanding of our discharge process and will benefit from an interdisciplinary inpatient rehabilitation program. The patient has potential to make improvement and is in need of at least two of the following multidisciplinary therapies including but not limited to physical, occupational, speech, and prosthetics and orthotics. Additionally the patient will need services from respiratory, nutritional services, wound care, psychology, etc. (Customize this to each patient). Given the patients complex condition and risk of further medical complications, rehabilitation services cannot be safely or effectively provided at a lower level of care such as a assisted facility. BARRIERS TO DISCHARGE: Debility ESTIMATED LOS: 14 days DISPOSITION: Home with spouse RELEVANT CHANGES SINCE PREADMISSION SCREENING: I have compared the patients medical and functional status at the time of the preadmission screening and there are: no changes PROGNOSIS: Fair to good REHABILITATION GOALS: 1. PT and OT will focus on regaining function with assistive devices to increase ambulatory stamina increase independence in ADLs All the above goals were reviewed with the patient and he/she is in agreement. By signing this document, I acknowledge that I have personally performed a full physical examination on this patient within 24 hours of admission to this inpatient rehabilitation facility and have determined the patient to be able to tolerate the above course of treatment at an intensive level for a reasonable period of time. I will be completing a detailed individualized Plan of Care for this patient by day #4 of the patients stay based upon the Preadmission Screen, the Post-Admission Evaluation, and the therapy evaluations. Admission Dx/Comorbidities: (1) Cavitary lesion of lung ICD Codes: J98.4 - Other disorders of lung (2) Pseudomonas pneumonia ICD Codes: J15.1 - Pneumonia due to Pseudomonas (3) Myopathy ICD Codes: G72.9 - Myopathy, unspecified (4) HTN (hypertension) Status: Acute (5) Supraventricular tachycardia Status: Acute ICD Codes: I47.1 - Supraventricular tachycardia (6) Anxiety Status: Acute ICD Codes: F41.9 - Anxiety disorder, unspecified (7) HTN (hypertension) Status: Acute ICD Codes: I10 - ESSENTIAL (PRIMARY) HYPERTENSION Assessment/Plan Assessment and Plan Assess & Plan/Chief Complaint Assessment: COPD myopathy Recent episode of acute respiratory failure requiring transfer to [facility] for higher level of care pulmonology expertise Pseudomonas pneumonia with cavitary lesions and Pseudomonas abscesses History of SVT Anxiety 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 Recent acute kidney injury Recent NSTEMI Plan: Cefepime antibiotic PT and OT aggressive therapy Home meds Anxiety treatment ANASTACIO KEY DO February 14, 2023 11:00
[2023-02-14] MEDS ORDERED: HYDR-3584 PO (12:59)
[2023-02-14] MEDS ORDERED: LORA-404 PO (13:02)
[2023-02-14] MEDS ORDERED: ALTE2VIA2 IJ (13:04)
[2023-02-14] MEDS ORDERED: TRZ50T PO (13:05)
[2023-02-14] MEDS ORDERED: ASPI-808 PO (13:05)
[2023-02-14] MEDS ORDERED: GUAI120013 PO (13:08)
[2023-02-14] MEDS ORDERED: HEPARIN 5000 UNIT/ML SC (13:08)
[2023-02-14] MEDS ORDERED: CEFE1FRO IV (13:09)
[2023-02-14] MEDS ORDERED: PANT40TA52 PO (13:09)
[2023-02-14] MEDS ORDERED: MONT-40 PO (13:10)
[2023-02-14] MEDS ORDERED: DILT-10 PO (13:10)
[2023-02-14] MEDS ORDERED: REVE175V IH (13:11)
[2023-02-14] MEDS ORDERED: SERT-413 PO (13:12)
[2023-02-14] MEDS ORDERED: LISI30TA5 PO (13:12)
[2023-02-14] MEDS ORDERED: LACT1CAP40 PO (13:13)
[2023-02-14] MEDS ORDERED: ACET-2267 PO (13:14)
[2023-02-14] MEDS ORDERED: ALBU1.25 INH (13:15)
[2023-02-14] MEDS ORDERED: [UNRECOGNIZED DRUG - CODE] SQ (13:26)
--- OUTSIDE RECORDS SUMMARY | 2023-02-14 14:03 | XMS REPORT | Clinical Summary ---
Author Author [facility] Organization [facility] Address Unknown Phone Unavailable Care Team Providers Care Data Center Technician Name Role Phone Tim Michael MD PCP Vale Pappas RN Unavailable Unavailable Source Comments Some departments are not documenting in the electronic medical record. If you d o not see the information that you expected, contact Release of Information in [facility] [employer] Information Management department at [phone] for further assistan ce in locating additional records.[facility] Allergies Comments Active Allergy Reactions Criticality Noted Date Codeine 01/23/2010 Medications End Date Status Medication Sig Dispensed Refills Start Date Active METOPROLOL TARTRATE PO Take by 0 mouth. Active LISINOPRIL PO Take by 0 mouth. Active ALBUTEROL SULFATE (PROAIR Inhale by 0 HFA IN) mouth. Active CLONIDINE HCL (CLONIDINE Take by 0 PO) mouth. Active LEVALBUTEROL HCL (XOPENEX Inhale by 0 IN) mouth. Active Problems Not on file Surgical History Surgery Date Site/Laterality Comments HX APPENDECTOMY Medical History Medical History Date Comments 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 Asthma Social History Date Tobacco Use Types Packs/Day Years Used Smoking Tobacco: Never Comments Alcohol Use Standard Drinks/Week No 0 (1 standard drink = 0.6 o z pure alcohol) Date Recorded Sex and Gender Information Value Sex Assigned at Not on file Gender Identity Not on file Sexual Orientation Not on file Obstetrics History Last Filed Vital Signs Reading Time Taken Comments Vital Sign 154/81 01/23/2010 8:16 PM CDT Blood Pressure 68 01/23/2010 8:16 PM CDT Pulse 36.3 C (97.3 F) 01/23/2010 6:42 PM CDT Temperature - - Respiratory Rate 100% 01/23/2010 8:16 PM CDT Oxygen Saturation - - Inhaled Oxygen Concentration - - Weight - - Height - - Body Mass Index Plan of Treatment Health Maintenance Due Date Last Done Comments COVID-19 VACCINE (#1) 1945 DTAP/TDAP VACCINES (1 - 1963 Tdap) HEPATITIS C SCREENING 1963 PHYSICAL (COMPREHENSIVE) 1963 EXAM SHINGLES RECOMBINANT 1995 VACCINE (1 of 2) OSTEOPOROSIS 2010 SCREENING/MONITORING PNEUMOCOCCAL VACCINE 65+ 2010 YRS (1 - PCV) DEPRESSION SCREENING 09/22/2022 INFLUENZA VACCINE (Season 06/22/2023 Ended) Results Not on filefrom Last 3 Months Care Teams Start Date End Date Data Center Technician Relationship Specialty 01/23/10 Tim Michael MD PCP - General [address] [facility] [address] [place] [address] 07/23/10 Vale Pappas RN
[2023-02-14] MEDS ORDERED: [UNRECOGNIZED DRUG - OTHER] IV SCH (14:30)
[2023-02-14] MEDS ORDERED: DEXTROSE ISO OSM IV SCH (14:30)
[2023-02-14] MEDS ORDERED: RT-ALBUTEROL SULF 2.5 MG/3 ML PRE-MIX VIAL INH PRN ×2 (14:30)
[2023-02-14] MEDS ORDERED: CEFEPIME HCL IV SCH (14:30)
[2023-02-14 15:30] VITALS: BP 112/64
--- NOTE | 2023-02-14 15:50 | Occupational Therapy Eval ---
OT Evaluation-General/PLF Medical Diagnosis Admission Date February 14, 2023 at 13:52 Medical Diagnosis: COPD myopathy Onset Date: Jan 11, 2023 Therapy Diagnosis Therapy Diagnosis: decreased ADL status Height/Weight Height (Feet): 5 Height (Inches): 3.00 Weight (Pounds): 140 Weight (Ounces): 0.0 Precautions Precautions/Isolations: Standard Precautions Weight Bear Status Weight Bearing Restriction: Weight Bearing/Tolerated Location Restriction: LE Bilateral Referral Physician: Esme Referral Reason: Evaluation/Treatment Medical History Additional Medical History asthma, possible COPD, HTN, SVT, GERD, Arthritis, anxiety/depression. Current History 01/10/23 [facility] ED with SOB. Pt had worsening respiratory failure, transferred to [facility] 01/17/23 for pulmonology evaluation. Pt transferred to [facility] ARU 02/14/23 Social History Home: Single Level Current Living Status: Other Family Entry Into Home: Stairs With Railing Steps Into Home: 4 Pt lives with son (pt caregiver for son), and granddaughter. ADL-Prior Level of Function SCALE: Activities may be completed with or without assistive devices. 4-Uytrfnfhry-byityqy completes the activity by him/herself with no assistance from a helper. 5-Set-up or Clean-up Assistance-helper sets up or cleans up; patient completes activity. [place] assists only prior to or following the activity. 4-Supervision or Touching Assistance-helper provides verbal cues and/or touching/steadying and/or contact guard assistance as patient completes activity. Assistance may be provided throughout the activity or intermittently. 3-Partial/Moderate Assistance-helper does LESS THAN HALF the effort. [place] lifts, holds or supports trunk or limbs, but provides less than half the effort. 2-Substantial/Maximal Assistance-helper does MORE THAN HALF the effort. [place] lifts or holds trunk or limbs and provides more than half the effort. 3-Svdifxpbf-gyfnta does ALL the effort. Patient does none of the effort to complete the activity. Or, the assistance of 2 or more helpers is required for the patient to complete the activity. If activity was not attempted, code reason: 7-Patient Refused. 9-Not Applicable-not attempted and the patient did not perform the activity before the current illness, exacerbation or injury. 10-Not Attempted due to Environmental Limitations-(lack of equipment, weather restraints, etc.). 88-Not Attempted due to Medical Conditions or Safety Concerns. ADL PLOF Comments Pt was IND with ADLs and functional mobility at PLOF, no AD. She has a tub/shower, no SC. Self Care: Independent Functional Cognition: Independent DME/Equipment: Tub/Shower OT Current Status Subjective Pt agreeable to OT evaluation, appears slightly [place] requiring OT to speak a little louder and repeat some questions/instructions multiple times. Mental Status/Objective Patient Orientation: Person, Place, Situation Current Glasses/Contacts: Yes Hearing Aids: No Dentures/Partials: No Hand Dominance: Right Upper Extremity ROM BUE shoulder flexion to approx 90 degrees AROM. WFL PROM (no pain reported) Upper Extremity Coordination decreased b/l due to weakness Upper Extremity Sensation WFL Upper Extremity Strength grossly 2/5 ADL-Treatment Eating (QC): 3 (Pt requires assistance bringing cup to mouth, she was able to take drink from straw) Oral Hygiene (QC): 3 Shower/Bathe Self (QC): 88 (Pt unable to tolerate shower/sponge bath on this date.) Upper Body Dressing (QC): 88 (Pt unable to tolerate dressing on this date.) Lower Body Dressing (QC): 88 (Pt unable to tolerate dressing on this date.) On/Off Footwear (QC): 1 Toileting Hygiene (QC): 1 (Assist all parts, and assist x2 (bed level)) Other Treatments Pt in bed, agreeable to OT evaluation. Pt provided information about PLOF and home set up to her ability. Pt reports she lives with son and granddaughter, but chart review indicates pt also has a (pt did not mention ). Pt completed rolling at bed level to change soiled sheets and complete hygiene. 2 person assist required, 1 to maintain sidelying position and 1 to perform hygiene and change sheets. Pt participated in UE screen, AROM BUE shoulder flexion to approx 90 degrees, WFL PROM. Pt unable to tolerate showering/dressing tasks at this time. Post tx, pt in bed, call light in reach and all needs met. Pt requires mod-max A x2 for rolling, sit to/from lying, and sit to/from stand (only able to attain 1/2 stand at EOB). Pt has poor dynamic and static sitting balance at EOB. Education OT Patient Education: Correct positioning, Energy conservation, Modified ADL techniques, Progress toward Goal/Update tx plan, Purpose of tx/functional activities, Rehab process Teaching Recipient: Patient Teaching Methods: Discussion Response to Teaching: Verbalize Understanding BIMS CAM BIMS Expression of Ideas and Wants: Without Difficulty Understanding Verbal Content: Usually Understands IRF MEGAN BIMS: IRF MEGAN BIMS Response (Comments) Value Repitition of Three Words Two 2 Recalls Socks Yes, No Cue Required 2 Recalls Blue Yes, No Cue Required 2 Recalls Bed Yes, No Cue Required 2 Year Correct 3 Month Accurate Within 5 Days 2 Day Incorrect or No Answer 0 Total 13 CAM Mental Status Change/Baseline: 1 Inattention: 0 Disorganized thinkin Altered level of consciousness: 0 OT Short Term Goals Short Term Goals Time Frame: Feb 28, 2023 Toileting hygiene: 3 Shower/bathe self: 3 Lower body dressin Putting on/taking off footwear: 3 OT Jail Goals Supervisor Insecticide Goals Time Frame: Mar 14, 2023 Eating (QC): 6 Oral Hygiene (QC): 6 Toileting Hygiene (QC): 4 Shower/Bathe Self (QC): 4 Upper Body Dressing (QC): 5 Lower Body Dressing (QC): 4 On/Off Footwear (QC): 5 Additional Goals: 1-Demonstrate ADL Tasks, 2-Verbalize Understanding, 3- ImproveStrength/Geraldo 1=Demonstrate adherence to instructed precautions during ADL tasks. 2=Patient will verbalize/demonstrate understanding of assistive devices/modifications for ADL. 3=Patient will improve strength/tolerance for activity to enable patient to perform ADL's. OT Education/Plan Problem List/Assessment Assessment: Decreased Activ Tolerance, Decreased Safety Aware, Decreased UE Strength, Impaired Cognition, Impaired Funct Balance, Impaired I ADL's, Impaired Self-Care Skills Discharge Recommendations Plan/Recommendations: Continue POC Equpiment Recommendations-D/C: Bath Chair Treatment Plan/Plan of Care Patient would benefit from OT for education, treatment and training to promote independence in ADL's, mobility, safety and/or upper extremity function for ADL's. Plan of Care: ADL Retraining, Functional Mobility, Group Exercise/Act as Ind, UE Funct Exercise/Act Treatment Duration: Mar 14, 2023 Frequency: At least 5 of 7 days/Wk (IRF) Estimated Hrs Per Day: 1.5 hours per day Agreement: Yes Rehab Potential: Fair Time Start Time: 15:45 Stop Time: 16:00 DATE: February 14, 2023 Total Time Billed (hr/min): 15 Billed Treatment Time 1, ELAINE MEYERS OT February 14, 2023 15:50
--- NOTE | 2023-02-14 16:01 | Physical Therapy Evaluation ---
PT Evaluation-General Medical Diagnosis Admission Date February 14, 2023 at 13:52 Medical Diagnosis: COPD myopathy Onset Date: Jan 11, 2023 Therapy Diagnosis Therapy Diagnosis: Debility; Decreased strenth; Decreased functional mobility Height/Weight Height (Feet): 5 Height (Inches): 3.00 Weight (Pounds): 140 Weight (Ounces): 0.0 Precautions Precautions/Isolations: Fall Prevention, Standard Precautions Weight Bear Status Right Lower Extremity: Right Full Weight Bearing Left Lower Extremity: Left Full Weight Bearing Referral Physician: Esme Reason for Referral: Evaluation/Treatment Medical History Additional Medical History Asthma, COPD, HTN, SVT, GERD, Arthritis, Anxiety, Depression Current History pt admitted to the hospital on 01/17/2023 for COPD myopathy; pt has become deconditioned and is Max A/Dep for functional mobility Reviewed History: Yes Social History Home: Single Level Current Living Status: Other Family Entry Into Home: Stairs With Railing PT Steps Into Home: 4 Prior Prior Level of Function SCALE: Activities may be completed with or without assistive devices. 0-Rnhxjaacuk-ykhpxxc completes the activity by him/herself with no assistance from a helper. 5-Set-up or Clean-up Assistance-helper sets up or cleans up; patient completes activity. [place] assists only prior to or following the activity. 4-Supervision or Touching Assistance-helper provides verbal cues and/or touching/steadying and/or contact guard assistance as patient completes activity. Assistance may be provided throughout the activity or intermittently. 3-Partial/Moderate Assistance-helper does LESS THAN HALF the effort. [place] lifts, holds or supports trunk or limbs, but provides less than half the effort. 2-Substantial/Maximal Assistance-helper does MORE THAN HALF the effort. [place] lifts or holds trunk or limbs and provides more than half the effort. 9-Yzfcufals-hsnjbc does ALL the effort. Patient does none of the effort to complete the activity. Or, the assistance of 2 or more helpers is required for the patient to complete the activity. If activity was not attempted, code reason: 7-Patient Refused. 9-Not Applicable-not attempted and the patient did not perform the activity before the current illness, exacerbation or injury. 10-Not Attempted due to Environmental Limitations-(lack of equipment, weather restraints, etc.). 88-Not Attempted due to Medical Conditions or Safety Concerns. Bed Mobility: 6 Transfers (B,C,W/C): 6 Gait: 6 Stairs: 6 Wheelchair Mobility: 9 Indoor Mobility (Ambulation): Independent Stairs: Independent Prior Devices Use: None Pt reports she was Mod I with functional mobility with no AD, at PLOF PT Evaluation-Current Subjective Pt is agreeable to PT eval Pain Numeric Pain Scale: 8 Location: Lower Location Body Site: Back (PU) Section J - Health Conditions 1. Rarely or not at all 2. Occasionally 3. Frequently 4. Almost constantly 8. Unable to answer Pain Effect on Sleep: 4 Pain Interference with Therapy: 4 Pain Interference w/Day-to-Day: 4 Pt/Family Goals Safely return home Objective Patient Orientation: Person, Place, Time, Situation ROM/Strength ROM Upper Extremities See OT eval ROM Lower Extremities Decreased secondary to weakness Strength Upper Extremities See OT eval Strength Lower Extremities B hip MMT - 3-/5 B knee and ankle MMT - 3+/5 Integumentary/Posture Integumentary open wound on coccyx Bowel Incontinence: No Bladder Incontinence: No Sensory Vision: Functional Hand Dominance: Right Sensation Right Upper Extremit: Intact Sensation Left Upper Extremity: Intact Sensation Right Lower Extremit: Intact Sensation Left Lower Extremity: Intact Transfers Roll Left & Right (QC): 1 (Mod/Max A x 2) Sit to Lying (QC): 1 (Mod/Max A x 2) Lying to Sitting/Side of Bed(Q: 1 (Mod/Max A x 2) Sit to Stand (QC): 1 (Mod/Max A x 2 - half stand from EOB ) Chair/Edo-uc-Alpbe Xfer(QC): 88 Toilet Transfer (QC): 88 Car Transfer (QC): 88 Gait Does the Patient Walk?: No and Walking Goal IS indicated Mode of Locomotion: Both Anticipated Mode of Locomotion: Wheelchair Walk 10 feet (QC): 88 Walk 50 ft with 2 Turns(QC): 88 Walk 150 ft (QC): 88 Walking 10ft/uneven surface-QC: 88 Wheelchair Training Does the Pt Use a Wheelchair?: Yes Wheel 50 ft with 2 turns (QC): 88 Wheel 150 ft (QC): 88 Type of Wheelchair: Manual Stairs 1 Step (curb) (QC): 88 4 Steps (QC): 88 12 Steps (QC): 88 Balance Sitting Static: Poor Sitting Dynamic: Poor Standing Static: Poor Standing Dynamic: Poor Picking up an Object (QC): 88 Special Test Comments KU sitting balance scale - 1/5 Treatment PT eval completed Assessment/Needs Pt was agreeable, but did not put forth much effort during eval. Rehab Potential: Fair Post Rehab Potential-Barriers: Severity of condition Equipment Needs w/c, FWW, SC PT Mcfp Goals Mcfp Goals PT Delivery Consultant Goals Time Frame: Feb 28, 2023 Roll Left to Right (QC): 3 (Pt will be Min/Mod A for bed mobility and transfers ) Sit to Lying (QC): 3 (Pt will be Min/Mod A for bed mobility and transfers ) Lying-Sitting on Side/Bed(QC): 3 (Pt will be Min/Mod A for bed mobility and transfers ) Sit to Stand (QC): 3 (Pt will be Min/Mod A for bed mobility and transfers ) Chair/Fgh-np-Scebc Xfer(QC): 3 (Pt will be Min/Mod A for bed mobility and transfers ) Toilet/Commode Transfer (QC): 3 (Pt will be Min/Mod A for bed mobility and transfers ) Car Transfer (QC): 3 (Pt will be Min/Mod A for bed mobility and transfers ) Does the Patient Walk: Yes Walk 10 feet (QC): 3 (Pt will ambulate up to 50ft with the FWW and Min A. ) Walk 10ft-Uneven Surface(QC): 88 Walk 50ft with 2 Turns (QC): 3 (Pt will ambulate up to 50ft with the FWW and Min A. ) Walk 150 ft (QC): 88 Does the Pt use WC or Scooter?: Yes Wheel 50 feet with 2 turns (QC: 4 (SBA for w/c mobility ) Type: Manual Wheel 150 feet: 4 (SBA for w/c mobility ) Type: Manual 1 Step (curb) (QC): 88 4 Steps (QC): 88 12 Steps (QC): 88 Picking up an Object (QC): 3 (Min A) KU sitting balance scale goal - 4/5 PT Plan Problem List Problem List: Activity Tolerance, Functional Strength, Safety, Balance, Gait, Transfer, Bed Mobility, ROM Treatment/Plan Treatment Plan: Continue Plan of Care Treatment Plan: Bed Mobility, Concurrent Therapy, Education, Functional Activity Geraldo, Functional Strength, Group Therapy, Gait, Safety, Therapeutic Ex ercise, Transfers Treatment Duration: Feb 28, 2023 Frequency: At least 5 of 7 days/Wk (IRF) Estimated Hrs Per Day: 1.5 hours per day Patient and/or Family Agrees t: Yes Safety Risks/Education Patient Education: Transfer Techniques, Issued Written HEP, Safety Issues Teaching Recipient: Patient Teaching Methods: Demonstration, Handout, Discussion Response to Teaching: Unable to Return Demonstration, Reinforcement Needed Discharge Recommendations Therapy Discharge Recommendati: Home & Family Equpiment Recommendations-D/C: Wheelchair Cushion, Front Wheeled Walker, Shower Chair, Manual Wheelchair Discharge Status/Home Program Cont POC Barriers to Progress Severity of condition Target Placement home with family Time Time In: 1530 Time Out: 1545 DATE: February 14, 2023 Total Billed Treatment Time: 15 Total Billed Treatment 15 min KIMBERLEE HERNANDEZ PT February 14, 2023 16:01
[2023-02-14] MEDS: LORazepam 0.5 MG (ATIVAN) TABLET PO PRN ×2 (16:12→22:21)
[2023-02-14] MEDS: CEFEPIME 1,000 MG/NS 50 ML IVPB IV SCH ×4 (16:12→22:22)
[2023-02-14] MEDS: ONDANSETRON 4 MG (ZOFRAN) ORAL DISSOLVE TAB PO PRN (17:53)
[2023-02-14 20:00] VITALS: BP 105/52
[2023-02-14] MEDS: MONTELUKAST 10 MG (SINGULAIR) TAB PO SCH (21:09)
[2023-02-14] MEDS: polyethylene glycoL POWDER 17 GM (MIRALAX) PACK PO SCH (21:10)
[2023-02-14] MEDS: guaiFENesin (MUCINEX) 600 MG TAB PO SCH (21:10)
[2023-02-14] MEDS: traZODone 50 MG (DESYREL) TAB PO SCH (21:10)
[2023-02-14] MEDS: DOCUSATE SODIUM 100 MG (COLACE) CAP PO SCH (21:10)
[2023-02-14] MEDS: SENNA W/DOCUSATE (SENOKOT S) TABLET PO SCH (21:10)
[2023-02-15] MEDS: hydrOXYzine (ATARAX) 10 MG TAB PO PRN ×2 (01:01→15:39)
[2023-02-15] MEDS: CEFEPIME 1,000 MG/NS 50 ML IVPB IV SCH ×8 (04:24→21:40)
[2023-02-15] MEDS: LORazepam 0.5 MG (ATIVAN) TABLET PO PRN ×4 (04:24→23:47)
--- NOTE | 2023-02-15 06:06 | Individualized Plan of Care ---
Individualized Plan of Care Rehab Nursing IPOC Order Admission Date February 14, 2023 at 13:52 Current Orders Orders Admission Order(Inpt,Obs,Sdc) (02/14/23 10:56) Vital Signs: Per Unit Policy ( 08,16,00 (02/14/23 10:56) Janak Montero 09,21 (02/14/23 10:56) Sequential Compression Device (02/14/23 10:56) Slot Operations Director-Inpt Rehab Con (02/14/23 10:56) Rehab Nursing Orders-Ipoc (02/14/23 10:56) Physical Therapy Rehab Orders (02/14/23 10:56) Occupational Therapy Rehab Ord (02/14/23 10:56) Speech Therapy Rehab Orders (02/14/23 10:56) Cbc With Automated Diff (02/15/23 06:00) Comprehensive Metabolic Panel (02/15/23 06:00) Precautions (Aru) (02/14/23 10:56) Weekly Weight WEEK (02/14/23 10:56) Rehab-Intensity Of Therapy (02/14/23 10:56) Alprazolam Tablet (Xanax Tablet) (02/14/23 11:00) Calcium Carbonate Chew Tablet (Antacid C (02/14/23 11:00) Diphenhydramine Tablet (Benadryl Tablet) (02/14/23 11:00) Docusate Sodium Capsule (Colace Capsule) (02/14/23 21:00) Docusate Sodium Capsule (Colace Capsule) (02/14/23 11:00) Bisacodyl Suppository (Dulcolax Supposit (02/14/23 11:00) Lactulose Oral Solution (Enulose Oral So (02/14/23 11:00) Na Phos/Na Biphos Enema (Fleet Enema Lino (02/14/23 11:00) Loperamide Tablet (Imodium Tablet) (02/14/23 11:00) Melatonin Tablet (Melatonin Tablet) (02/14/23 11:00) Polyethylene Glycol Powder Pkt (Miralax (02/14/23 21:00) Ondansetron Oral Dissolve Tab (Zofran (02/14/23 11:00) Senna S Tablet (Senokot S Tablet) (02/14/23 21:00) Acetaminophen Tablet/Caplet (Tylenol T (02/14/23 11:00) Initiate Admission Nursing Pro .admission (02/14/23 10:56) Code/Resuscitation (02/14/23 12:57) Heart Healthy (02/14/23 Lunch) Acetaminophen Tablet (Tylenol Tablet) (02/14/23 14:30) Albuterol Pre-Mix Nebs (Rt) (Proventil (02/14/23 14:30) Albuterol Pre-Mix Nebs (Rt) (Proventil (02/14/23 14:30) Aspirin Tablet (Aspirin Tablet) (02/15/23 09:00) Hydroxyzine Oral (Atarax Tablet) (02/14/23 14:30) Lorazepam Tablet (Ativan Tablet) (02/14/23 14:30) Montelukast Tablet (Singulair Tablet) (02/14/23 21:00) Pantoprazole Tablet (Protonix Tablet) (02/15/23 09:00) Sertraline Tablet (Zoloft Tablet) (02/15/23 09:00) Trazodone Tablet (Desyrel Tablet) (02/14/23 21:00) (Nf) Cefepime Hcl/Dextrose, Iso-Osm (Cef (02/14/23 14:30) Diltiazem Cd 24 Hr Capsule (Cardizem Cd (02/15/23 09:00) Guaifenesin Tablet (Mucinex Tablet) (02/14/23 21:00) Heparin Injection (Heparin Injection) (02/14/23 22:00) Lactobacillus Acidophilus Cap (Acidophil (02/15/23 09:00) Lisinopril Tablet (Zestril Tablet) (02/15/23 09:00) (Nf) Revefenacin (Yupelri) (02/15/23 09:00) Svn Small Volume Nebulizer (02/14/23 14:26) Svn Small Volume Nebulizer (02/14/23 14:26) Alteplase (Cathflo) Injection (Cathflo (02/15/23 14:30) Cefepime Injection (Maxipime Injection) (02/14/23 16:00) Manual Differential (02/15/23 05:05) Rehab Nursing Orders: Ongoing Assess. of Cognitive Status, Ongoing Assess. of Function Status, Bladder Management, Bladder Scan, Bladder Training, Bowel Management, Bowel Training, Disease Management & Educaiton, DVT Prophylaxis, Fall Prevention, Fluid/Electrolyte/Nutrition Mgmt, Infection Prevention, Medication Management & Education, Management of Risks & Complications, Ma nagement of Skin Intergrity, Nutrition Management, Pain Management, Patient/Family Support, Safety Management, Wound Management Intensity of Therapy to be met Patient to be seen: Min.3h per day/5 of 7d PT IPOC Problem List: Activity Tolerance, Functional Strength, Safety, Balance, Gait, Transfer, Bed Mobility, ROM Treatment Plan: Continue Plan of Care Bed Mobility, Concurrent Therapy, Education, Functional Activity Geraldo, Functional Strength, Group Therapy, Gait, Safety, Therapeutic Exercise, Transfers Treatment Duration: Feb 28, 2023 Frequency: At least 5 of 7 days/Wk (IRF) Estimated Hrs Per Day: 1.5 hours per day OT IPOC Problems: Decreased Activ Tolerance, Decreased Safety Aware, Decreased UE St rength, Impaired Cognition, Impaired Funct Balance, Impaired I ADL's, Impaired Self-Care Skills OT Treatment, Training and Edu: Yes Plan of Care: ADL Retraining, Functional Mobility, Group Exercise/Act as Ind, UE Funct Exercise/Act Treatment Duration: Mar 14, 2023 Frequency: At least 5 of 7 days/Wk (IRF) Estimated Hrs Per Day: 1.[address] IPOC Speech Therapy Treatment Plan: Discontinue ST Treatment Duration: February 14, 2023 Frequency: Modified Program (IRF) Estimated Hrs Per Day: Other Slot Operations Director/Case Mgmt Slot Operations Director/Case Managemen: Discharge Planning Dietitian/Anesthesiologists' Assistant Dietitian/Anesthesiologists' Assistant to monitor nutritional status and make changes and/or recommendations as needed and work with speech pathology on dietary upgrades as the occur. Physician IPOC Medical Issues being managed closely and that require the 24 hour availability of a physician: Recent long hospital course for respiratory failure and cavitary lesions of the lungs with Pseudomonas pneumonia will require close monitoring while on IV antibiotics and high risk for decompensation Medical Issues: Bowel/Bladder Function, DVT Prophylaxis, Falls Precautions, Fluid/Electrolyte/Nutrition Balance, Infection Protection, Pain Management, Wound Care Brief Synthesis of Preadmission Screen, Post-Admission Evaluation, and Therapy Evaluations: PT and OT will focus on regaining functional use of assistive devices in order to increase strength due to severe myopathy and help increase independence in ADLs Medical Prognosis: Fair Anticipated Length of Stay: 14 days ANASTACIO KEY DO February 15, 2023 06:06
--- NOTE | 2023-02-15 06:06 | PM&R Progress Note ---
Subjective HPI/CC On Admission Date Seen by Provider: February 15, 2023 Time Seen by Provider: 12:00 Subjective/Events-last exam 02/15/2023: Patient was able to work with therapy today Sat on the side of the bed Patient extremely weak Lies down in bed most of the time Oxygen maintained Labs reviewed Review of Systems General: Fatigue, Malaise Pulmonary: Dyspnea, Cough Objective Exam Vital Signs Vital Signs Date Time Temp Pulse Resp B/P (MAP) Pulse Ox O2 Delivery O2 Flow Rate FiO2 02/15/23 11:32 91 20 98/49 (65) 99 Nasal Cannula 2.00 02/15/23 08:10 36.9 Capillary Refill : General Appearance: No Apparent Distress, WD/WN, Chronically ill, Other (very weak and debilitated) HEENT: PERRL/EOMI, Normal ENT Inspection, Pharynx Normal Neck: Full Range of Motion, Normal Inspection, Non Tender, Supple, Carotid Bruit Respiratory: Chest Non Tender, Lungs Clear, Normal Breath Sounds, No Accessory Muscle Use, No Respiratory Distress, Decreased Breath Sounds Cardiovascular: Regular Rate, Rhythm, No Edema, No Gallop, No JVD, No Murmur, Normal Peripheral Pulses Gastrointestinal: Normal Bowel Sounds, No Organomegaly, No Pulsatile Mass, Non Tender, Soft Back: Normal Inspection, No CVA Tenderness, No Vertebral Tenderness Extremity: Normal Capillary Refill, Normal Inspection, Normal Range of Motion, Non Tender, No Calf Tenderness, No Pedal Edema Neurologic/Psychiatric: Alert, Oriented x3, 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 FIM Transfers Therapy Code Descriptions/Definitions Functional [place] Measure: 0=Not Assessed/NA 4=Minimal Assistance 1=Total Assistance 5=Supervision or Setup 2=Maximal Assistance 6=Modified [place] 3=Moderate Assistance 7=Complete IndependenceSCALE: Activities may be completed with or without assistive devices. 6-Geymmjiaxj-dgbwpet completes the activity by him/herself with no assistance from a helper. 5-Set-up or Clean-up Assistance-helper sets up or cleans up; patient completes activity. [place] assists only prior to or following the activity. 4-Supervision or Touching Assistance-helper provides verbal cues and/or touching/steadying and/or contact guard assistance as patient completes activity. Assistance may be provided throughout the activity or intermittently. 3-Partial/Moderate Assistance-helper does LESS THAN HALF the effort. [place] lifts, holds or supports trunk or limbs, but provides less than half the effort. 2-Substantial/Maximal Assistance-helper does MORE THAN HALF the effort. [place] lifts or holds trunk or limbs and provides more than half the effort. 6-Wxrsecnyp-gcdutt does ALL the effort. Patient does none of the effort to complete the activity. Or, the assistance of 2 or more helpers is required for the patient to complete the activity. If activity was not attempted, code reason: 7-Patient Refused. 9-Not Applicable-not attempted and the patient did not perform the activity before the current illness, exacerbation or injury. 10-Not Attempted due to Environmental Limitations-(lack of equipment, weather restraints, etc.). 88-Not Attempted due to Medical Conditions or Safety Concerns. Roll Left to Right (QC): 1 (Mod/Max A x 2) Sit to Lying (QC): 1 (Mod/Max A x 2) Sit to Stand (QC): 1 (Mod/Max A x 2 - half stand from EOB ) Chair/Hxx-dn-Timul Xfer(QC): 88 Car Transfer (QC): 88 Gait Training Does the Patient Walk?: No and Walking Goal IS indicated Walk 10 feet (QC): 88 Walk 50 ft with 2 Turns(QC): 88 Walk 150 ft (QC): 88 Walking 10ft/uneven surface-QC: 88 Wheelchair Training Does the Pt Use a Wheelchair?: Yes Wheel 50 ft with 2 turns (QC): 88 Wheel 150 ft (QC): 88 Type of Wheelchair: Manual Stair Training 1 Step (curb) (QC): 88 4 Steps (QC): 88 12 Steps (QC): 88 Balance Picking up an Object (QC): 88 ADL-Treatment Eating (QC): 3 (Pt requires assistance bringing cup to mouth, she was able to take drink from straw) Oral Hygiene (QC): 3 Shower/Bathe Self (QC): 88 (Pt unable to tolerate shower/sponge bath on this date.) Upper Body Dressing (QC): 88 (Pt unable to tolerate dressing on this date.) Lower Body Dressing (QC): 88 (Pt unable to tolerate dressing on this date.) On/Off Footwear (QC): 1 Toileting Hygiene (QC): 1 (Assist all parts, and assist x2 (bed level)) Assessment/Plan Assessment and Plan Assess & Plan/Chief Complaint Assessment: COPD myopathy Recent episode of acute respiratory failure requiring transfer to [place] for higher level of care pulmonology expertise Pseudomonas pneumonia with cavitary lesions and Pseudomonas abscesses History of SVT Anxiety 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 Recent acute kidney injury Recent NSTEMI Plan: Cefepime antibiotic PT and OT aggressive therapy Home meds Anxiety treatment 02/15/2023: Supportive care Aggressive rehab If this is unsuccessful could very well be a hospice candidate (1) Cavitary lesion of lung (2) Pseudomonas pneumonia (3) Myopathy (4) HTN (hypertension) Status: Acute (5) Supraventricular tachycardia Status: Acute (6) Anxiety Status: Acute (7) HTN (hypertension) Status: Acute ANASTACIO KEY DO February 15, 2023 06:06
--- NOTE | 2023-02-15 06:07 | Individualized Plan of Care ---
Individualized Plan of Care Rehab Nursing IPOC Order Admission Date February 14, 2023 at 13:52 Current Orders Orders Admission Order(Inpt,Obs,Sdc) (02/14/23 10:56) Vital Signs: Per Unit Policy ( 08,16,00 (02/14/23 10:56) Janak Montero 09,21 (02/14/23 10:56) Sequential Compression Device (02/14/23 10:56) Veterinary Technician-Inpt Rehab Con (02/14/23 10:56) Rehab Nursing Orders-Ipoc (02/14/23 10:56) Physical Therapy Rehab Orders (02/14/23 10:56) Occupational Therapy Rehab Ord (02/14/23 10:56) Speech Therapy Rehab Orders (02/14/23 10:56) Cbc With Automated Diff (02/15/23 06:00) Comprehensive Metabolic Panel (02/15/23 06:00) Precautions (Aru) (02/14/23 10:56) Weekly Weight WEEK (02/14/23 10:56) Rehab-Intensity Of Therapy (02/14/23 10:56) Alprazolam Tablet (Xanax Tablet) (02/14/23 11:00) Calcium Carbonate Chew Tablet (Antacid C (02/14/23 11:00) Diphenhydramine Tablet (Benadryl Tablet) (02/14/23 11:00) Docusate Sodium Capsule (Colace Capsule) (02/14/23 21:00) Docusate Sodium Capsule (Colace Capsule) (02/14/23 11:00) Bisacodyl Suppository (Dulcolax Supposit (02/14/23 11:00) Lactulose Oral Solution (Enulose Oral So (02/14/23 11:00) Na Phos/Na Biphos Enema (Fleet Enema Lino (02/14/23 11:00) Loperamide Tablet (Imodium Tablet) (02/14/23 11:00) Melatonin Tablet (Melatonin Tablet) (02/14/23 11:00) Polyethylene Glycol Powder Pkt (Miralax (02/14/23 21:00) Ondansetron Oral Dissolve Tab (Zofran (02/14/23 11:00) Senna S Tablet (Senokot S Tablet) (02/14/23 21:00) Acetaminophen Tablet/Caplet (Tylenol T (02/14/23 11:00) Initiate Admission Nursing Pro .admission (02/14/23 10:56) Code/Resuscitation (02/14/23 12:57) Heart Healthy (02/14/23 Lunch) Acetaminophen Tablet (Tylenol Tablet) (02/14/23 14:30) Albuterol Pre-Mix Nebs (Rt) (Proventil (02/14/23 14:30) Albuterol Pre-Mix Nebs (Rt) (Proventil (02/14/23 14:30) Aspirin Tablet (Aspirin Tablet) (02/15/23 09:00) Hydroxyzine Oral (Atarax Tablet) (02/14/23 14:30) Lorazepam Tablet (Ativan Tablet) (02/14/23 14:30) Montelukast Tablet (Singulair Tablet) (02/14/23 21:00) Pantoprazole Tablet (Protonix Tablet) (02/15/23 09:00) Sertraline Tablet (Zoloft Tablet) (02/15/23 09:00) Trazodone Tablet (Desyrel Tablet) (02/14/23 21:00) (Nf) Cefepime Hcl/Dextrose, Iso-Osm (Cef (02/14/23 14:30) Diltiazem Cd 24 Hr Capsule (Cardizem Cd (02/15/23 09:00) Guaifenesin Tablet (Mucinex Tablet) (02/14/23 21:00) Heparin Injection (Heparin Injection) (02/14/23 22:00) Lactobacillus Acidophilus Cap (Acidophil (02/15/23 09:00) Lisinopril Tablet (Zestril Tablet) (02/15/23 09:00) (Nf) Revefenacin (Yupelri) (02/15/23 09:00) Svn Small Volume Nebulizer (02/14/23 14:26) Svn Small Volume Nebulizer (02/14/23 14:26) Alteplase (Cathflo) Injection (Cathflo (02/15/23 14:30) Cefepime Injection (Maxipime Injection) (02/14/23 16:00) Rehab Nursing Orders: Ongoing Assess. of Function Status Intensity of Therapy to be met Patient to be seen: Min.3h per day/5 of 7d PT IPOC Problem List: Activity Tolerance, Functional Strength, Safety, Balance, Gait, Transfer, Bed Mobility, ROM Bed Mobility, Concurrent Therapy, Education, Functional Activity Geraldo, Functional Strength, Group Therapy, Gait, Safety, Therapeutic Exercise, Transfers Treatment Duration: Feb 28, 2023 Frequency: At least 5 of 7 days/Wk (IRF) Estimated Hrs Per Day: 1.5 hours per day OT IPOC Problems: Decreased Activ Tolerance, Decreased Safety Aware, Decreased UE Strength, Impaired Cognition, Impaired Funct Balance, Impaired I ADL's, Impaired Self-Care Skills Plan of Care: ADL Retraining, Functional Mobility, Group Exercise/Act as Ind, UE Funct Exercise/Act Treatment Duration: Mar 14, 2023 Frequency: At least 5 of 7 days/Wk (IRF) Estimated Hrs Per Day: 1.5 hours per day Veterinary Technician/Case Mgmt Veterinary Technician/Case Managemen: Discharge Planning Dietitian/Leasing Associate Dietitian/Leasing Associate to monitor nutritional status and make changes and/or recommendations as needed and work with speech pathology on dietary upgrades as the occur. Physician IPOC Medical Issues being managed closely and that require the 24 hour availability of a physician: Brief Synthesis of Preadmission Screen, Post-Admission Evaluation, and Therapy Evaluations: ANASTACIO KEY DO February 15, 2023 06:07
[2023-02-15] MEDS: ACETAMINOPHEN 500 MG TAB (TYLENOL) PO PRN ×2 (06:08→23:47)
[2023-02-15 06:33] LABS: HEMATOCRIT 32 % (35-52)
[2023-02-15 06:34] LABS: BASOPHILS # (AUTO) 0.1 10^3/uL (0.0-0.1); BASOPHILS % (AUTO) 1 % (0-10); EOSINOPHILS # (AUTO) 0.1 10^3/uL (0.0-0.3); EOSINOPHILS % (AUTO) 1 % (0-10); HEMOGLOBIN 10.5 g/dL (11.5-16.0); LYMPHOCYTES # (AUTO) 0.7 10^3/uL (1.0-4.0); LYMPHOCYTES % (AUTO) 7 % (12-44); MEAN CORPUSCULAR HEMOGLOBIN 32 pg (25-34); MEAN CORPUSCULAR HGB CONC 33 g/dL (32-36); MEAN CORPUSCULAR VOLUME 97 fL (80-99); MEAN PLATELET VOLUME 11.7 fL (9.0-12.2); MONOCYTES # (AUTO) 0.8 10^3/uL (0.0-1.0); MONOCYTES % (AUTO) 8 % (0-12); NEUTROPHILS # (AUTO) 7.6 10^3/uL (1.8-7.8); NEUTROPHILS % (AUTO) 76 % (42-75); PLATELET COUNT 128 10^3/uL (130-400)
[2023-02-15 06:55] LABS: ALBUMIN 2.4 GM/DL (3.2-4.5); BILIRUBIN,TOTAL 0.7 MG/DL (0.1-1.0); CALCIUM 8.4 MG/DL (8.5-10.1); CREATININE SERUM 0.56 MG/DL (0.60-1.30); POTASSIUM 3.5 MMOL/L (3.6-5.0); TOTAL PROTEIN 4.4 GM/DL (6.4-8.2)
[2023-02-15 07:30] LABS: BAND NEUTROPHILS 9 %; BASOPHILS % (MANUAL) 2 %; EOSINOPHILS % (MANUAL) 1 %; LYMPHOCYTES % (MANUAL) 6 %; MONOCYTES % (MANUAL) 10 %; MYELOCYTES % 1 %; NEUTROPHILS % (MANUAL) 71 %
[2023-02-15 07:31] LABS: ANISOCYTOSIS SLIGHT
[2023-02-15 08:10] VITALS: BP 110/55
[2023-02-15] MEDS: SERTRALINE 50 MG (ZOLOFT) TABLET PO SCH (08:26)
[2023-02-15] MEDS: lisINopril 10 MG (PRINIVIL) TABLET PO SCH ×2 (08:27→12:12)
[2023-02-15] MEDS: guaiFENesin (MUCINEX) 600 MG TAB PO SCH ×2 (08:27→21:39)
[2023-02-15] MEDS: ASPIRIN 325 MG (5 GR) TABLET PO SCH (08:27)
[2023-02-15] MEDS: LACTOBACILLUS ACIDOPHILUS (PROBIOTIC) CAPSULE PO SCH (08:27)
[2023-02-15] MEDS: polyethylene glycoL POWDER 17 GM (MIRALAX) PACK PO SCH ×2 (08:28→21:30)
[2023-02-15] MEDS: SENNA W/DOCUSATE (SENOKOT S) TABLET PO SCH ×2 (08:28→21:39)
[2023-02-15] MEDS: DOCUSATE SODIUM 100 MG (COLACE) CAP PO SCH ×2 (08:28→21:39)
[2023-02-15] MEDS: PANTOPRAZOLE 40 MG (PROTONIX) TAB PO SCH (09:06)
--- NOTE | 2023-02-15 10:34 | Occupational Ther Daily Note ---
OT Current Status-Daily Note Subjective Pt seen in room, up in bed, agreeable to OT. No pain mentioned. Appearance Alert, cooperative. Knew name and , year and month but not date, holiday coming up Mental Status/Objective Attachments: Central Line, Oxygen ADL-Treatment Co-treat with PT based on need for skilled intervention of two different disciplines and inability of patient to do functional activities with only one person. OT worked on ADLs and UE function while PT worked on bed mobility and LE function. See PT note for specifics. Pt was eating breakfast. Needed assistance to hold glass of juice and straw placement. Same with coffee. Propped R elbow up on pillow so that she was able to reach food items on her tray. She was able to reach for and place grapes and ate scrambled eggs and muffin with fingers. Able to scoop and eat oatmeal after UE placement assistance with pillow. Pt placed supine and assisted with LE and UE movements for removal of wick for incontinence and vannessa care. Bed pad was wet. Pt rolled side to side with two person assist for replacing pads and washing bottom and back, legs. Two person assist needed to pull her up in bed, with pt assisting with UEs and LEs, needing help for placement. Nursing removed dressing on bottom and also provided vannessa care with barrier cream while PT and OT helped with rolling and positioning, still needing two people. Nursing also replaced pads on heels, with pt assisting with movement (with therapy help). Pt sat up in long sitting to take off and replace gown, two person assist, but was able to maintain with one person assist. She assisted with washing arms, abdomen and face but was not thorough and had difficulty holding on to bath wipes. Pt transitioned to sitting EOB (see PT note), two person assist, with c/o light headedness which got better with time. O2 in place throughout tx. Pt was unable to push up with UEs to scoot up in bed while sitting bedside. Pt assist back to supine and needed two person assist to pull up in bed. She attempted to lift her bottom to place ortho bed perea but was not able to bridge enough without assistance. Pt left in bed with nursing, all need met. Therapy Code Descriptions/Definitions Functional [place] Measure: 0=Not Assessed/NA 4=Minimal Assistance 1=Total Assistance 5=Supervision or Setup 2=Maximal Assistance 6=Modified [place] 3=Moderate Assistance 7=Complete IndependenceSCALE: Activities may be completed with or without assistive devices. 2-Oydsbllwkl-eyxmucy completes the activity by him/herself with no assistance from a helper. 5-Set-up or Clean-up Assistance-helper sets up or cleans up; patient completes activity. [place] assists only prior to or following the activity. 4-Supervision or Touching Assistance-helper provides verbal cues and/or touching/steadying and/or contact guard assistance as patient completes activity. Assistance may be provided throughout the activity or intermittently. 3-Partial/Moderate Assistance-helper does LESS THAN HALF the effort. [place] lifts, holds or supports trunk or limbs, but provides less than half the effort. 2-Substantial/Maximal Assistance-helper does MORE THAN HALF the effort. [place] lifts or holds trunk or limbs and provides more than half the effort. 2-Gshdxgmwx-grbljl does ALL the effort. Patient does none of the effort to complete the activity. Or, the assistance of 2 or more helpers is required for the patient to complete the activity. If activity was not attempted, code reason: 7-Patient Refused. 9-Not Applicable-not attempted and the patient did not perform the activity before the current illness, exacerbation or injury. 10-Not Attempted due to Environmental Limitations-(lack of equipment, weather restraints, etc.). 88-Not Attempted due to Medical Conditions or Safety Concerns. Eating (QC): 3 Shower/Bathe Self (QC): 2 Upper Body Dressing (QC): 2 (Hospital gown only) Lower Body Dressing (QC): 1 On/Off Footwear: 1 Toileting Hygiene (QC): 1 Toilet Transfer (QC): 88 Education OT Patient Education: Correct positioning, Modified ADL techniques, Progress toward Goal/Update tx plan, Purpose of tx/functional activities Teaching Recipient: Patient Teaching Methods: Demonstration, Discussion Response to Teaching: Verbalize Understanding, Return Demonstration, Reinforcement Needed OT Short Term Goals Short Term Goals Time Frame: Feb 28, 2023 Toileting hygiene: 3 Shower/bathe self: 3 Lower body dressin Putting on/taking off footwear: 3 OT Assisted Goals Assisted Goals Time Frame: Mar 14, 2023 Acute change in mental status: 1 Inattention: 0 Disorganized thinkin Altered level of consciousness: 0 Eating (QC): 6 Oral Hygiene (QC): 6 Toileting Hygiene (QC): 4 Shower/Bathe Self (QC): 4 Upper Body Dressing (QC): 5 Lower Body Dressing (QC): 4 On/Off Footwear (QC): 5 Additional Goals: 1-Demonstrate ADL Tasks, 2-Verbalize Understanding, 3- ImproveStrength/Geraldo 1=Demonstrate adherence to instructed precautions during ADL tasks. 2=Patient will verbalize/demonstrate understanding of assistive devices/modifications for ADL. 3=Patient will improve strength/tolerance for activity to enable patient to perform ADL's. OT Education/Plan Discharge Recommendations Plan/Recommendations: Continue POC Treatment Plan/Plan of Care Patient would benefit from OT for education, treatment and training to promote independence in ADL's, mobility, safety and/or upper extremity function for ADL' s. Plan of Care: ADL Retraining, Functional Mobility, Group Exercise/Act as Ind, UE Funct Exercise/Act Treatment Duration: Mar 14, 2023 Frequency: At least 5 of 7 days/Wk (IRF) Estimated Hrs Per Day: 1.5 hours per day Agreement: Yes Rehab Potential: Fair Time Start Time: 08:29 Stop Time: 09:59 DATE: February 15, 2023 Total Time Billed (hr/min): 90 Billed Treatment Time Visit, 90 minutes ADL THOM EUCEDA OT February 15, 2023 10:34
--- NOTE | 2023-02-15 11:08 | Physical Therapy Daily Note ---
PT Daily Note-Current Subjective Pt in bed upon arrival and agrees to PT/OT cotreat. Pain Section J - Health Conditions 1. Rarely or not at all 2. Occasionally 3. Frequently 4. Almost constantly 8. Unable to answer Pain Effect on Sleep: 4 Pain Interference with Therapy: 4 Pain Interference w/Day-to-Day: 4 Mental Status Patient Orientation: Person, Confused, Time Attachments: Oxygen Transfers SCALE: Activities may be completed with or without assistive devices. 5-Qwddgxrlte-shnghws completes the activity by him/herself with no assistance from a helper. 5-Set-up or Clean-up Assistance-helper sets up or cleans up; patient completes activity. [place] assists only prior to or following the activity. 4-Supervision or Touching Assistance-helper provides verbal cues and/or touching/steadying and/or contact guard assistance as patient completes activity. Assistance may be provided throughout the activity or intermittently. 3-Partial/Moderate Assistance-helper does LESS THAN HALF the effort. [place] lifts, holds or supports trunk or limbs, but provides less than half the effort. 2-Substantial/Maximal Assistance-helper does MORE THAN HALF the effort. [place] lifts or holds trunk or limbs and provides more than half the effort. 7-Kovcxkake-fkzlwu does ALL the effort. Patient does none of the effort to comp lete the activity. Or, the assistance of 2 or more helpers is required for the patient to complete the activity. If activity was not attempted, code reason: 7-Patient Refused. 9-Not Applicable-not attempted and the patient did not perform the activity before the current illness, exacerbation or injury. 10-Not Attempted due to Environmental Limitations-(lack of equipment, weather restraints, etc.). 88-Not Attempted due to Medical Conditions or Safety Concerns. Sit to Lying (QC): 1 Lying to Sitting/Side of Bed(Q: 2 Weight Bearing Right Lower Extremity: Right Full Weight Bearing Left Lower Extremity: Left Full Weight Bearing Gait Training Does the Patient Walk?: No and Walking Goal IS indicated Exercises Supine Ex: Bridging, Ankle pumps, Lower trunk rotation, Heel Slides, Short Arc Quads, Scooting, Hip abd/add Supine Reps: 20 Seated Therapy Exercises: Ankle pumps, Long arc quads Seated Reps: 5 Treatments Co-treat with OT based on need for skilled intervention of two different disciplines and inability of patient to do functional activities with only one person. OT worked on ADLs and UE function while PT worked on bed mobility and LE function. See PT note for specifics. Pt was eating breakfast. Needed assistance to hold glass of juice and straw placement. Same with coffee. Propped R elbow up on pillow so that she was able to reach food items on her tray. She was able to reach for and place grapes and ate scrambled eggs and muffin with fingers. Able to scoop and eat oatmeal after UE placement assistance with pillow. Pt placed supine and assisted with LE and UE movements for removal of wick for incontinence and vannessa care. Bed pad was wet. Pt rolled side to side with two person assist for replacing pads and washing bottom and back, legs. Two person assist needed to pull her up in bed, with pt assisting with UEs and LEs, needing help for placement. Nursing removed dressing on bottom and also provided vannessa care with barrier cream while PT and OT helped with rolling and positioning, still needing two people. Nursing also replaced pads on heels, with pt assisting with movement (with therapy help). Pt sat up in long sitting to take off and replace gown, two person assist, but was able to maintain with one person assist. She assisted with washing arms, abdomen and face but was not thorough and had difficulty holding on to bath wipes. Pt transitioned to sitting EOB, two person assist, with c/o light headedness which got better with time. O2 in place throughout tx. Pt was unable to push up with UEs to scoot up in bed while sitting bedside. Pt assist back to supine and needed two person assist to pull up in bed. She attempted to lift her bottom to place ortho bed perea but was not able to bridge enough without assistance. Pt left in bed with nursing, all need met. Assessment Current Status: Good Progress Pt improved today to only require maxA/dep x1 to sit EOB. Pt still requires maxA/dep throughout treatment but does understand how to perform bed mobility following verbal and tactile cues. PT Chcf Goals Glass Smoother Goals PT Glass Smoother Goals Time Frame: Feb 28, 2023 Roll Left & Right (QC): 3 (Pt will be Min/Mod A for bed mobility and transfers ) Sit to Lying (QC): 3 (Pt will be Min/Mod A for bed mobility and transfers ) Lying-Sitting on Side/Bed(QC): 3 (Pt will be Min/Mod A for bed mobility and transfers ) Sit to Stand (QC): 3 (Pt will be Min/Mod A for bed mobility and transfers ) Chair/Bfn-lc-Akchi Xfer(QC): 3 (Pt will be Min/Mod A for bed mobility and transfers ) Toilet Transfer (QC): 3 (Pt will be Min/Mod A for bed mobility and transfers ) Car Transfer (QC): 3 (Pt will be Min/Mod A for bed mobility and transfers ) Does the Patient Walk: Yes Walk 10 feet (QC): 3 (Pt will ambulate up to 50ft with the FWW and Min A. ) Walk 50ft with 2 Turns (QC): 3 (Pt will ambulate up to 50ft with the FWW and Min A. ) Walk 150 ft (QC): 88 Walking 10ft on Uneven Surface: 88 1 Step (curb) (QC): 88 4 Steps (QC): 88 12 Steps (QC): 88 Picking up an Object (QC): 3 (Min A) Does the Pt use WC or Scooter?: Yes Wheel 50 feet with 2 turns (QC: 4 (SBA for w/c mobility ) Type: Manual Wheel 150 feet: 4 (SBA for w/c mobility ) Type: Manual PT Plan Problem List Problem List: Activity Tolerance, Functional Strength, Safety, Transfer, Bed M obility Treatment/Plan Treatment Plan: Continue Plan of Care Treatment Plan: Bed Mobility, Concurrent Therapy, Education, Functional Activity Geraldo, Functional Strength, Group Therapy, Gait, Safety, Therapeutic Exercise, Transfers Treatment Duration: Feb 28, 2023 Frequency: At least 5 of 7 days/Wk (IRF) Estimated Hrs Per Day: 1.5 hours per day Patient and/or Family Agrees t: Yes Safety Risks/Education Patient Education: Transfer Techniques, Reviewed Precautions, Correct Positioning Teaching Recipient: Patient Teaching Methods: Discussion Response to Teaching: Return Demonstration, Reinforcement Needed Time Time In: 828 Time Out: 958 DATE: February 15, 2023 Total Billed Treatment Time: 90 Total Billed Treatment 1, ADL x4, FA x 2 JERALD DOTY PTA February 15, 2023 11:08
[2023-02-15 11:32] VITALS: BP 98/49
[2023-02-15] MEDS ORDERED: ALTEPLASE 2 MG (CATHFLO) IJ ONE (14:30)
[2023-02-15] MEDS: ONDANSETRON 4 MG (ZOFRAN) ORAL DISSOLVE TAB PO PRN ×2 (14:50→23:47)
[2023-02-15 15:40] VITALS: BP 123/60
[2023-02-15 20:15] VITALS: BP 134/62
[2023-02-15] MEDS: MONTELUKAST 10 MG (SINGULAIR) TAB PO SCH (21:39)
[2023-02-15] MEDS: traZODone 50 MG (DESYREL) TAB PO SCH (21:39)
[2023-02-16] MEDS: hydrOXYzine (ATARAX) 10 MG TAB PO PRN ×2 (02:56→09:36)
[2023-02-16] MEDS: CEFEPIME 1,000 MG/NS 50 ML IVPB IV SCH ×8 (04:26→21:27)
[2023-02-16] MEDS: LORazepam 0.5 MG (ATIVAN) TABLET PO PRN ×3 (06:50→21:20)
--- NOTE | 2023-02-16 07:21 | PM&R Progress Note ---
Subjective HPI/CC On Admission Date Seen by Provider: February 16, 2023 Time Seen by Provider: 12:00 Subjective/Events-last exam 02/16/2023: Slow progress Does not eat well I told to bring in outside food If she fails rehab she will need hospice 02/15/2023: Patient was able to work with therapy today Sat on the side of the bed Patient extremely weak Lies down in bed most of the time Oxygen maintained Labs reviewed Review of Systems General: Fatigue, Malaise Objective Exam Vital Signs Vital Signs Date Time Temp Pulse Resp B/P (MAP) Pulse Ox O2 Delivery O2 Flow Rate FiO2 02/16/23 09:09 Nasal Cannula 2.00 02/16/23 08:03 96 02/16/23 07:53 36.1 98 18 134/63 (86) Capillary Refill : General Appearance: No Apparent Distress, WD/WN, Chronically ill, Other (very weak and debilitated) HEENT: PERRL/EOMI, Normal ENT Inspection, Pharynx Normal Neck: Full Range of Motion, Normal Inspection, Non Tender, Supple, Carotid Bruit Respiratory: Chest Non Tender, Lungs Clear, Normal Breath Sounds, No Accessory Muscle Use, No Respiratory Distress, Decreased Breath Sounds Cardiovascular: Regular Rate, Rhythm, No Edema, No Gallop, No JVD, No Murmur, Normal Peripheral Pulses Gastrointestinal: Normal Bowel Sounds, No Organomegaly, No Pulsatile Mass, Non Tender, Soft Back: Normal Inspection, No CVA Tenderness, No Vertebral Tenderness Extremity: Normal Capillary Refill, Normal Inspection, Normal Range of Motion, Non Tender, No Calf Tenderness, No Pedal Edema Neurologic/Psychiatric: Alert, Oriented x3, rigger third II-XII Norm as Tested, Depressed Affect, Motor Weakness (generalized severe in nature) Skin: Normal Color, Warm/Dry Lymphatic: No Adenopathy Results/Procedures Lab Patient resulted labs reviewed. FIM Transfers Therapy Code Descriptions/Definitions Functional [place] Measure: 0=Not Assessed/NA 4=Minimal Assistance 1=Total Assistance 5=Supervision or Setup 2=Maximal Assistance 6=Modified [place] 3=Moderate Assistance 7=Complete IndependenceSCALE: Activities may be completed with or without assistive devices. 3-Aogfmgyjld-juvdaaf completes the activity by him/herself with no assistance from a helper. 5-Set-up or Clean-up Assistance-helper sets up or cleans up; patient completes activity. [place] assists only prior to or following the activity. 4-Supervision or Touching Assistance-helper provides verbal cues and/or touching/steadying and/or contact guard assistance as patient completes activity. Assistance may be provided throughout the activity or intermittently. 3-Partial/Moderate Assistance-helper does LESS THAN HALF the effort. [place] lifts, holds or supports trunk or limbs, but provides less than half the effort. 2-Substantial/Maximal Assistance-helper does MORE THAN HALF the effort. [place] lifts or holds trunk or limbs and provides more than half the effort. 0-Bpyayjnue-lbxawu does ALL the effort. Patient does none of the effort to complete the activity. Or, the assistance of 2 or more helpers is required for the patient to complete the activity. If activity was not attempted, code reason: 7-Patient Refused. 9-Not Applicable-not attempted and the patient did not perform the activity before the current illness, exacerbation or injury. 10-Not Attempted due to Environmental Limitations-(lack of equipment, weather restraints, etc.). 88-Not Attempted due to Medical Conditions or Safety Concerns. Roll Left to Right (QC): 1 (Mod/Max A x 2) Sit to Lying (QC): 1 Sit to Stand (QC): 1 (Mod/Max A x 2 - half stand from EOB ) Chair/Jhj-ud-Oknqh Xfer(QC): 88 Car Transfer (QC): 88 Gait Training Does the Patient Walk?: No and Walking Goal IS indicated Walk 10 feet (QC): 88 Walk 50 ft with 2 Turns(QC): 88 Walk 150 ft (QC): 88 Walking 10ft/uneven surface-QC: 88 Wheelchair Training Does the Pt Use a Wheelchair?: Yes Wheel 50 ft with 2 turns (QC): 88 Wheel 150 ft (QC): 88 Type of Wheelchair: Manual Stair Training 1 Step (curb) (QC): 88 4 Steps (QC): 88 12 Steps (QC): 88 Balance Picking up an Object (QC): 88 ADL-Treatment Eating (QC): 3 Oral Hygiene (QC): 3 Shower/Bathe Self (QC): 2 Upper Body Dressing (QC): 2 (Hospital gown only) Lower Body Dressing (QC): 1 On/Off Footwear (QC): 1 Toileting Hygiene (QC): 1 Toilet Transfer (QC): 88 Assessment/Plan Assessment and Plan Assess & Plan/Chief Complaint Assessment: COPD myopathy Recent episode of acute respiratory failure requiring transfer to [place] for higher level of care pulmonology expertise Pseudomonas pneumonia with cavitary lesions and Pseudomonas abscesses History of SVT Anxiety 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 Recent acute kidney injury Recent NSTEMI Plan: Cefepime antibiotic PT and OT aggressive therapy Home meds Anxiety treatment 02/15/2023: Supportive care Aggressive rehab If this is unsuccessful could very well be a hospice candidate 02/16/2023: Slow recovery If fails rehab needs hospice (1) Cavitary lesion of lung (2) Pseudomonas pneumonia (3) Myopathy (4) HTN (hypertension) Status: Acute (5) Supraventricular tachycardia Status: Acute (6) Anxiety Status: Acute (7) HTN (hypertension) Status: Acute ANASTACIO KEY DO February 16, 2023 07:21
[2023-02-16 07:53] VITALS: BP 134/63
[2023-02-16] MEDS: ASPIRIN 325 MG (5 GR) TABLET PO SCH (09:07)
[2023-02-16] MEDS: SENNA W/DOCUSATE (SENOKOT S) TABLET PO SCH ×2 (09:07→21:20)
[2023-02-16] MEDS: PANTOPRAZOLE 40 MG (PROTONIX) TAB PO SCH (09:07)
[2023-02-16] MEDS: guaiFENesin (MUCINEX) 600 MG TAB PO SCH ×2 (09:08→21:20)
[2023-02-16] MEDS: SERTRALINE 50 MG (ZOLOFT) TABLET PO SCH (09:08)
[2023-02-16] MEDS: DOCUSATE SODIUM 100 MG (COLACE) CAP PO SCH ×2 (09:08→21:20)
[2023-02-16] MEDS: LACTOBACILLUS ACIDOPHILUS (PROBIOTIC) CAPSULE PO SCH (09:08)
[2023-02-16] MEDS: lisINopril 10 MG (PRINIVIL) TABLET PO SCH (09:08)
[2023-02-16] MEDS: polyethylene glycoL POWDER 17 GM (MIRALAX) PACK PO SCH ×2 (09:08→21:20)
[2023-02-16] MEDS: ACETAMINOPHEN 500 MG TAB (TYLENOL) PO PRN (09:09)
[2023-02-16] MEDS: ONDANSETRON 4 MG (ZOFRAN) ORAL DISSOLVE TAB PO PRN ×2 (09:36→15:38)
[2023-02-16 20:00] VITALS: BP 123/58
[2023-02-16] MEDS: MONTELUKAST 10 MG (SINGULAIR) TAB PO SCH (21:20)
[2023-02-16] MEDS: traZODone 50 MG (DESYREL) TAB PO SCH (21:20)
[2023-02-17] VITALS (12 sets, daily range): BP systolic 87–113; BP diastolic 42–58
[2023-02-17] MEDS: LORazepam 0.5 MG (ATIVAN) TABLET PO PRN ×2 (03:22→09:03)
[2023-02-17] MEDS: CEFEPIME 1,000 MG/NS 50 ML IVPB IV SCH ×8 (03:23→22:28)
[2023-02-17] MEDS: ONDANSETRON 4 MG (ZOFRAN) ORAL DISSOLVE TAB PO PRN ×2 (03:28→09:04)
[2023-02-17] MEDS: hydrOXYzine (ATARAX) 10 MG TAB PO PRN ×2 (05:53→14:39)
[2023-02-17 05:54] LABS: BASOPHILS % (AUTO) 1 % (0-10); MEAN PLATELET VOLUME 11.1 fL (9.0-12.2)
[2023-02-17 05:57] LABS: EOSINOPHILS # (AUTO) 0.1 10^3/uL (0.0-0.3); EOSINOPHILS % (AUTO) 1 % (0-10); HEMATOCRIT 31 % (35-52); HEMOGLOBIN 10.4 g/dL (11.5-16.0); LYMPHOCYTES # (AUTO) 0.8 10^3/uL (1.0-4.0); LYMPHOCYTES % (AUTO) 9 % (12-44); MEAN CORPUSCULAR HEMOGLOBIN 32 pg (25-34); MEAN CORPUSCULAR HGB CONC 33 g/dL (32-36); MEAN CORPUSCULAR VOLUME 96 fL (80-99); MONOCYTES # (AUTO) 0.7 10^3/uL (0.0-1.0); MONOCYTES % (AUTO) 8 % (0-12); NEUTROPHILS # (AUTO) 6.6 10^3/uL (1.8-7.8); NEUTROPHILS % (AUTO) 75 % (42-75); PLATELET COUNT 129 10^3/uL (130-400); WHITE BLOOD COUNT 8.8 10^3/uL (4.3-11.0)
[2023-02-17] MEDS: ACETAMINOPHEN 500 MG TAB (TYLENOL) PO PRN (05:57)
--- NOTE | 2023-02-17 06:06 | PM&R Progress Note ---
Subjective HPI/CC On Admission Date Seen by Provider: February 17, 2023 Time Seen by Provider: 12:00 Subjective/Events-last exam 02/17/2023: Patient appears to be very declined Minimal oral intake and minimal motivation Hypotensive episode when she was working with physical therapy required discontinuation of therapy Spoke with at the bedside who appears to be in denial about her end- stage terminal status In my opinion she would meet criteria for home with hospice since it appears that her tells me her daughters refused to send her to a nursing facility 02/16/2023: Slow progress Does not eat well I told to bring in outside food If she fails rehab she will need hospice 02/15/2023: Patient was able to work with therapy today Sat on the side of the bed Patient extremely weak Lies down in bed most of the time Oxygen maintained Labs reviewed Review of Systems General: Fatigue, Malaise Neurological: Confusion Objective Exam Vital Signs Vital Signs Date Time Temp Pulse Resp B/P (MAP) Pulse Ox O2 Delivery O2 Flow Rate FiO2 02/17/23 14:41 99 18 109/58 (75) 100 Nasal Cannula 3.50 02/17/23 07:56 35.3 Capillary Refill : General Appearance: No Apparent Distress, WD/WN, Chronically ill, Other (very weak and debilitated) HEENT: PERRL/EOMI, Normal ENT Inspection, Pharynx Normal Neck: Full Range of Motion, Normal Inspection, Non Tender, Supple, Carotid Bruit Respiratory: Chest Non Tender, Lungs Clear, Normal Breath Sounds, No Accessory Muscle Use, No Respiratory Distress, Decreased Breath Sounds Cardiovascular: Regular Rate, Rhythm, No Edema, No Gallop, No JVD, No Murmur, Normal Peripheral Pulses Gastrointestinal: Normal Bowel Sounds, No Organomegaly, No Pulsatile Mass, Non Tender, Soft Back: Normal Inspection, No CVA Tenderness, No Vertebral Tenderness Extremity: Normal Capillary Refill, Normal Inspection, Normal Range of Motion, Non Tender, No Calf Tenderness, No Pedal Edema Neurologic/Psychiatric: Alert, Oriented x3, director public service II-XII Norm as Tested, Depressed Affect, Motor Weakness (generalized severe in nature) Skin: Normal Color, Warm/Dry Lymphatic: No Adenopathy Results/Procedures Lab Laboratory Tests 02/17/23 05:40 Patient resulted labs reviewed. FIM Transfers Therapy Code Descriptions/Definitions Functional [place] Measure: 0=Not Assessed/NA 4=Minimal Assistance 1=Total Assistance 5=Supervision or Setup 2=Maximal Assistance 6=Modified [place] 3=Moderate Assistance 7=Complete IndependenceSCALE: Activities may be completed with or without assistive devices. 3-Bympvoprlj-txzznlp completes the activity by him/herself with no assistance from a helper. 5-Set-up or Clean-up Assistance-helper sets up or cleans up; patient completes activity. [place] assists only prior to or following the activity. 4-Supervision or Touching Assistance-helper provides verbal cues and/or touching/steadying and/or contact guard assistance as patient completes activity. Assistance may be provided throughout the activity or intermittently. 3-Partial/Moderate Assistance-helper does LESS THAN HALF the effort. [place] lif ts, holds or supports trunk or limbs, but provides less than half the effort. 2-Substantial/Maximal Assistance-helper does MORE THAN HALF the effort. [place] lifts or holds trunk or limbs and provides more than half the effort. 7-Rekggovav-aromqq does ALL the effort. Patient does none of the effort to complete the activity. Or, the assistance of 2 or more helpers is required for the patient to complete the activity. If activity was not attempted, code reason: 7-Patient Refused. 9-Not Applicable-not attempted and the patient did not perform the activity before the current illness, exacerbation or injury. 10-Not Attempted due to Environmental Limitations-(lack of equipment, weather restraints, etc.). 88-Not Attempted due to Medical Conditions or Safety Concerns. Roll Left to Right (QC): 1 (Mod/Max A x 2) Sit to Lying (QC): 1 Sit to Stand (QC): 1 (Mod/Max A x 2 - half stand from EOB ) Chair/Wgx-hb-Pphxk Xfer(QC): 88 Car Transfer (QC): 88 Gait Training Does the Patient Walk?: No and Walking Goal IS indicated Walk 10 feet (QC): 88 Walk 50 ft with 2 Turns(QC): 88 Walk 150 ft (QC): 88 Walking 10ft/uneven surface-QC: 88 Wheelchair Training Does the Pt Use a Wheelchair?: Yes Wheel 50 ft with 2 turns (QC): 88 Wheel 150 ft (QC): 88 Type of Wheelchair: Manual Stair Training 1 Step (curb) (QC): 88 4 Steps (QC): 88 12 Steps (QC): 88 Balance Picking up an Object (QC): 88 ADL-Treatment Eating (QC): 3 Oral Hygiene (QC): 3 Shower/Bathe Self (QC): 2 Upper Body Dressing (QC): 2 (Hospital gown only) Lower Body Dressing (QC): 1 On/Off Footwear (QC): 1 Toileting Hygiene (QC): 1 Toilet Transfer (QC): 88 Assessment/Plan Assessment and Plan Assess & Plan/Chief Complaint Assessment: COPD myopathy Recent episode of acute respiratory failure requiring transfer to [place] for higher level of care pulmonology expertise Pseudomonas pneumonia with cavitary lesions and Pseudomonas abscesses History of SVT Anxiety 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 Recent acute kidney injury Recent NSTEMI Poor motivation Hypotensive episodes causing interruption in therapy Hospice candidate in my opinion Protein malnutrition Plan: Cefepime antibiotic PT and OT aggressive therapy Home meds Anxiety treatment 02/15/2023: Supportive care Aggressive rehab If this is unsuccessful could very well be a hospice candidate 02/16/2023: Slow recovery If fails rehab needs hospice 02/17/2023: I would recommend hospice at discharge (1) Cavitary lesion of lung (2) Pseudomonas pneumonia (3) Myopathy (4) HTN (hypertension) Status: Acute (5) Supraventricular tachycardia Status: Acute (6) Anxiety Status: Acute (7) HTN (hypertension) Status: Acute ANASTACIO KEY DO February 17, 2023 06:06
[2023-02-17 06:15] LABS: ALBUMIN 2.4 GM/DL (3.2-4.5); BILIRUBIN,TOTAL 0.7 MG/DL (0.1-1.0); CALCIUM 8.6 MG/DL (8.5-10.1); CREATININE SERUM 0.6 MG/DL (0.60-1.30); POTASSIUM 3.8 MMOL/L (3.6-5.0); TOTAL PROTEIN 4.6 GM/DL (6.4-8.2)
--- NOTE | 2023-02-17 07:50 | Occupational Ther Daily Note ---
OT Current Status-Daily Note Subjective Pt in bed, states sick to her stomach. Pt already had Nausea medication earlier this AM. ADL-Treatment Therapy Code Descriptions/Definitions Functional [place] Measure: 0=Not Assessed/NA 4=Minimal Assistance 1=Total Assistance 5=Supervision or Setup 2=Maximal Assistance 6=Modified [place] 3=Moderate Assistance 7=Complete IndependenceSCALE: Activities may be completed with or without assistive devices. 0-Ngtlaszhja-afjodcy completes the activity by him/herself with no assistance from a helper. 5-Set-up or Clean-up Assistance-helper sets up or cleans up; patient completes activity. [place] assists only prior to or following the activity. 4-Supervision or Touching Assistance-helper provides verbal cues and/or touching/steadying and/or contact guard assistance as patient completes activity. Assistance may be provided throughout the activity or intermittently. 3-Partial/Moderate Assistance-helper does LESS THAN HALF the effort. [place] l ifts, holds or supports trunk or limbs, but provides less than half the effort. 2-Substantial/Maximal Assistance-helper does MORE THAN HALF the effort. [place] lifts or holds trunk or limbs and provides more than half the effort. 0-Uwsfrbwqd-xhistu does ALL the effort. Patient does none of the effort to complete the activity. Or, the assistance of 2 or more helpers is required for t he patient to complete the activity. If activity was not attempted, code reason: 7-Patient Refused. 9-Not Applicable-not attempted and the patient did not perform the activity before the current illness, exacerbation or injury. 10-Not Attempted due to Environmental Limitations-(lack of equipment, weather restraints, etc.). 88-Not Attempted due to Medical Conditions or Safety Concerns. Eating (QC): 5 (pt ate with fingers.) On/Off Footwear: 1 Toileting Hygiene (QC): 1 (assist x2-3) Toilet Transfer (QC): 1 (assist x2-3 on/off BSC) Other Treatment [id number]: Pt in bed, OT repositioned pt in bed in order to sit in more upright position for eating breakfast. OT set up pt's breakfast, then pt able to feed herself with set up assistance, although pt only ate several small bites of food due to c/o nausea, eating food utilizing fingers instead of utensils. [id number] OT/PT cotreat due to skill of 2 clinicians required which a vocational rehabilitation specialist could not perform in order to coordinate UE/LEs, decrease fall risk, and due to pt's limitations in strength, mobility, transfers, activity tolerance. OT focused on UE placement, ADLs, cues for sequencing and safety, PT focused on LE placement, transfers/mobility, gross overall movement. Pt transferred supine to sit EOB, VCs required step by step for sequencing of transfer. Pt performed SPT from EOB to recliner, max encouragement required as pt requests just to complete bed level tasks. Pt educated on ARU expectations and process along with pt's goal to return home. Pt taken to ARU common area via recliner. Pt washed face and combed hair with mod A overall for thoroughness. Pt then requests to use bathroom, taken back to room via recliner, SPT to BSC assist x2. [id number]: Pt attempted to have BM, but unsuccessful. Pt required assist x3 to transfer from BSC to recliner, (2 for transfer and 1 for posterior hygiene). OT assisted pt to comfort in recliner. Pt requests ativan and states sick to her stomach, RN notified. Post tx, pt in recliner, call light in reach and all needs met. Education OT Patient Education: Correct positioning, Energy conservation, Modified ADL techniques, Progress toward Goal/Update tx plan, Purpose of tx/functional activities, Rehab process Teaching Recipient: Patient Teaching Methods: Discussion Response to Teaching: Verbalize Understanding OT Short Term Goals Short Term Goals Time Frame: Feb 28, 2023 Toileting hygiene: 3 Shower/bathe self: 3 Lower body dressin Putting on/taking off footwear: 3 OT [employer] Data Warehouse Developer Goals Snf Goals Time Frame: Mar 14, 2023 Acute change in mental status: 1 Inattention: 0 Disorganized thinkin Altered level of consciousness: 0 Eating (QC): 6 Oral Hygiene (QC): 6 Toileting Hygiene (QC): 4 Shower/Bathe Self (QC): 4 Upper Body Dressing (QC): 5 Lower Body Dressing (QC): 4 On/Off Footwear (QC): 5 Additional Goals: 1-Demonstrate ADL Tasks, 2-Verbalize Understanding, 3- ImproveStrength/Geraldo 1=Demonstrate adherence to instructed precautions during ADL tasks. 2=Patient will verbalize/demonstrate understanding of assistive devic es/modifications for ADL. 3=Patient will improve strength/tolerance for activity to enable patient to perform ADL's. OT Education/Plan Problem List/Assessment Assessment: Decreased Activ Tolerance, Decreased Safety Aware, Decreased UE Strength, Dependent Transfers, Impaired Bed Mobility, Impaired Coordination, Impaired Funct Balance, Impaired I ADL's, Impaired Self-Care Skills, Restricted Funct UE ROM Discharge Recommendations Plan/Recommendations: Continue POC Treatment Plan/Plan of Care Patient would benefit from OT for education, treatment and training to promote independence in ADL's, mobility, safety and/or upper extremity function for ADL's. Plan of Care: ADL Retraining, Functional Mobility, Group Exercise/Act as Ind, UE Funct Exercise/Act Treatment Duration: Mar 14, 2023 Frequency: At least 5 of 7 days/Wk (IRF) Estimated Hrs Per Day: 1.5 hours per day Agreement: Yes Rehab Potential: Fair Time Start Time: 07:30 Stop Time: 09:00 DATE: February 17, 2023 Total Time Billed (hr/min): 90 Billed Treatment Time OT tx x60', Cotreat x30' 1, ADL 5 (75'), FA (15') ELAINE TRIVEDI OT February 17, 2023 07:50
[2023-02-17] MEDS: PANTOPRAZOLE 40 MG (PROTONIX) TAB PO SCH (07:58)
[2023-02-17] MEDS: LACTOBACILLUS ACIDOPHILUS (PROBIOTIC) CAPSULE PO SCH (07:58)
[2023-02-17] MEDS: SENNA W/DOCUSATE (SENOKOT S) TABLET PO SCH ×2 (07:59→22:48)
[2023-02-17] MEDS: guaiFENesin (MUCINEX) 600 MG TAB PO SCH ×2 (07:59→22:28)
[2023-02-17] MEDS: SERTRALINE 50 MG (ZOLOFT) TABLET PO SCH (07:59)
[2023-02-17] MEDS: ASPIRIN 325 MG (5 GR) TABLET PO SCH (08:00)
[2023-02-17] MEDS: DOCUSATE SODIUM 100 MG (COLACE) CAP PO SCH ×2 (08:00→22:48)
[2023-02-17] MEDS: lisINopril 10 MG (PRINIVIL) TABLET PO SCH (08:06)
[2023-02-17] MEDS: polyethylene glycoL POWDER 17 GM (MIRALAX) PACK PO SCH ×2 (08:06→22:48)
--- NOTE | 2023-02-17 11:55 | Physical Therapy Daily Note ---
PT Daily Note-Current Subjective Pt found lying in bed upon entry. Agreed to PT/OT co-treatment. Pt initially states that she does not want to get out of bed but then agrees to transfer to recliner. Pt displays signs of pain while supine in bed but does not describe or rate. Pain Section J - Health Conditions 1. Rarely or not at all 2. Occasionally 3. Frequently 4. Almost constantly 8. Unable to answer Pain Effect on Sleep: 4 Pain Interference with Therapy: 4 Pain Interference w/Day-to-Day: 4 Mental Status Patient Orientation: Person, Place Transfers SCALE: Activities may be completed with or without assistive devices. 3-Yprtfilxqj-gjystll completes the activity by him/herself with no assistance fr om a helper. 5-Set-up or Clean-up Assistance-helper sets up or cleans up; patient completes activity. [place] assists only prior to or following the activity. 4-Supervision or Touching Assistance-helper provides verbal cues and/or touching/steadying and/or contact guard assistance as patient completes activity. Assistance may be provided throughout the activity or intermittently. 3-Partial/Moderate Assistance-helper does LESS THAN HALF the effort. [place] lifts, holds or supports trunk or limbs, but provides less than half the effort. 2-Substantial/Maximal Assistance-helper does MORE THAN HALF the effort. [place] lifts or holds trunk or limbs and provides more than half the effort. 0-Wdldoszcp-ieoved does ALL the effort. Patient does none of the effort to complete the activity. Or, the assistance of 2 or more helpers is required for the patient to complete the activity. If activity was not attempted, code reason: 7-Patient Refused. 9-Not Applicable-not attempted and the patient did not perform the activity before the current illness, exacerbation or injury. 10-Not Attempted due to Environmental Limitations-(lack of equipment, weather restraints, etc.). 88-Not Attempted due to Medical Conditions or Safety Concerns. Lying to Sitting/Side of Bed(Q: 1 Chair/Ktg-ls-Psjoc Xfer(QC): 1 Pt 2-person MOD/MAX assist /c lying to sitting and bed to chair transfers. Pt able to lightly pull self /c use of bed rail to complete lying to sitting transfer. Bed was raised to complete bed to chair transfer. Weight Bearing Right Lower Extremity: Right Full Weight Bearing Left Lower Extremity: Left Full Weight Bearing Gait Training Does the Patient Walk?: No and Walking Goal IS indicated Treatments Seated exercises: LAQs x 10 B HR/TR x 10 B Marching x 10 B Assessment Current Status: Poor Progress Pt required MOD/MAX assist /c all completed transfers. Required frequent verbal cues for completion of exercise and transfers. Displays poor muscle endurance and strength /c therapeutic exercises. Demonstrates fatigue and poor motivation throughout visit. Continue to progress pt as tolerated per POC to improve strength, endurance, functional ability, and decrease pain. PT Heel Seat Pounder Goals Heel Seat Pounder Goals PT Heel Seat Pounder Goals Time Frame: Feb 28, 2023 Roll Left & Right (QC): 3 (Pt will be Min/Mod A for bed mobility and transfers ) Sit to Lying (QC): 3 (Pt will be Min/Mod A for bed mobility and transfers ) Lying-Sitting on Side/Bed(QC): 3 (Pt will be Min/Mod A for bed mobility and transfers ) Sit to Stand (QC): 3 (Pt will be Min/Mod A for bed mobility and transfers ) Chair/Tko-mn-Xfpqc Xfer(QC): 3 (Pt will be Min/Mod A for bed mobility and transfers ) Toilet Transfer (QC): 3 (Pt will be Min/Mod A for bed mobility and transfers ) Car Transfer (QC): 3 (Pt will be Min/Mod A for bed mobility and transfers ) Does the Patient Walk: Yes Walk 10 feet (QC): 3 (Pt will ambulate up to 50ft with the FWW and Min A. ) Walk 50ft with 2 Turns (QC): 3 (Pt will ambulate up to 50ft with the FWW and Min A. ) Walk 150 ft (QC): 88 Walking 10ft on Uneven Surface: 88 1 Step (curb) (QC): 88 4 Steps (QC): 88 12 Steps (QC): 88 Picking up an Object (QC): 3 (Min A) Does the Pt use WC or Scooter?: Yes Wheel 50 feet with 2 turns (QC: 4 (SBA for w/c mobility ) Type: Manual Wheel 150 feet: 4 (SBA for w/c mobility ) Type: Manual PT Plan Treatment/Plan Treatment Plan: Continue Plan of Care Treatment Plan: Bed Mobility, Concurrent Therapy, Education, Functional Activity Geraldo, Functional Strength, Group Therapy, Gait, Safety, Therapeutic Exercise, Transfers Treatment Duration: Feb 28, 2023 Frequency: At least 5 of 7 days/Wk (IRF) Estimated Hrs Per Day: 1.5 hours per day Patient and/or Family Agrees t: Yes Time Time In: 0800 Time Out: 829 DATE: February 17, 2023 Total Billed Treatment Time: 30 Total Billed Treatment 1 visit FA x 1 EX x 1 Total treatment time: 4446-5753 Co-treatment time: [id number] KEEGAN PERERA ELECTRIC DEICER INSPECTOR February 17, 2023 11:55
--- NOTE | 2023-02-17 12:07 | Physical Therapy Daily Note ---
PT Daily Note-Current Subjective Pt found seated in recliner upon entry. Pt reports that she does not feel well and does not want to do anything. Pt vomits at beginning of treatment and required gown changing and cleaning. RN notified. Pt was transferred from recliner to bed. RN took patients vitals before at after transfer was completed. BP was 85/49 post-transfer but erin to 101/52 after lying at an incline in bed. O2 was elevated to 4L per RN and O2 remained stable at 96-98% throughout treatment. Pain Section J - Health Conditions 1. Rarely or not at all 2. Occasionally 3. Frequently 4. Almost constantly 8. Unable to answer Pain Effect on Sleep: 4 Pain Interference with Therapy: 4 Pain Interference w/Day-to-Day: 4 Mental Status Patient Orientation: Person, Place Transfers SCALE: Activities may be completed with or without assistive devices. 5-Tqusfjopzu-hwpptom completes the activity by him/herself with no assistance from a helper. 5-Set-up or Clean-up Assistance-helper sets up or cleans up; patient completes activity. [place] assists only prior to or following the activity. 4-Supervision or Touching Assistance-helper provides verbal cues and/or touching/steadying and/or contact guard assistance as patient completes activity. Assistance may be provided throughout the activity or intermittently. 3-Partial/Moderate Assistance-helper does LESS THAN HALF the effort. [place] lifts, holds or supports trunk or limbs, but provides less than half the effort. 2-Substantial/Maximal Assistance-helper does MORE THAN HALF the effort. [place] lifts or holds trunk or limbs and provides more than half the effort. 4-Suhqcockh-oqgtpb does ALL the effort. Patient does none of the effort to complete the activity. Or, the assistance of 2 or more helpers is required for the patient to complete the activity. If activity was not attempted, code reason: 7-Patient Refused. 9-Not Applicable-not attempted and the patient did not perform the activity before the current illness, exacerbation or injury. 10-Not Attempted due to Environmental Limitations-(lack of equipment, weather restraints, etc.). 88-Not Attempted due to Medical Conditions or Safety Concerns. Roll Left & Right (QC): 1 Sit to Lying (QC): 1 Chair/Czs-tt-Sayab Xfer(QC): 1 Pt MAX 2-person assist /c all completed transfers. Required rolling assistance at shoulders and hips. Sit to lying transfer completed /c LE lifting assist and lowering assistance at shoulders. Recliner to bed transfer completed /c 2-person MAX lifting assistance. Weight Bearing Right Lower Extremity: Right Full Weight Bearing Left Lower Extremity: Left Full Weight Bearing Gait Training Does the Patient Walk?: No and Walking Goal IS indicated Treatments Seated therapeutic exercises: Hip add /c pillow x 10 Assessment Current Status: Poor Progress Pt displays fatigue and required continuous verbal cues to stay on task. Therapeutic exercises limited this visit due to illness and fatigue. Continues to required MAX 2 person assist /c completion of transfers due to weakness and fatigue. Continue to progress pt as tolerated per POC to improve strength, endurance, functional ability, and decrease pain. PT Bunch Breaker Machine Operator Goals Bunch Breaker Machine Operator Goals PT Mcfp Goals Time Frame: Feb 28, 2023 Roll Left & Right (QC): 3 (Pt will be Min/Mod A for bed mobility and transfers ) Sit to Lying (QC): 3 (Pt will be Min/Mod A for bed mobility and transfers ) Lying-Sitting on Side/Bed(QC): 3 (Pt will be Min/Mod A for bed mobility and transfers ) Sit to Stand (QC): 3 (Pt will be Min/Mod A for bed mobility and transfers ) Chair/Rzx-ea-Ndevx Xfer(QC): 3 (Pt will be Min/Mod A for bed mobility and transfers ) Toilet Transfer (QC): 3 (Pt will be Min/Mod A for bed mobility and transfers ) Car Transfer (QC): 3 (Pt will be Min/Mod A for bed mobility and transfers ) Does the Patient Walk: Yes Walk 10 feet (QC): 3 (Pt will ambulate up to 50ft with the FWW and Min A. ) Walk 50ft with 2 Turns (QC): 3 (Pt will ambulate up to 50ft with the FWW and Min A. ) Walk 150 ft (QC): 88 Walking 10ft on Uneven Surface: 88 1 Step (curb) (QC): 88 4 Steps (QC): 88 12 Steps (QC): 88 Picking up an Object (QC): 3 (Min A) Does the Pt use WC or Scooter?: Yes Wheel 50 feet with 2 turns (QC: 4 (SBA for w/c mobility ) Type: Manual Wheel 150 feet: 4 (SBA for w/c mobility ) Type: Manual PT Plan Treatment/Plan Treatment Plan: Continue Plan of Care Treatment Plan: Bed Mobility, Concurrent Therapy, Education, Functional Activity Geraldo, Functional Strength, Group Therapy, Gait, Safety, Therapeutic Exercise, Transfers Treatment Duration: Feb 28, 2023 Frequency: At least 5 of 7 days/Wk (IRF) Estimated Hrs Per Day: 1.5 hours per day Patient and/or Family Agrees t: Yes Time Time In: 1000 Time Out: 1100 DATE: February 17, 2023 Total Billed Treatment Time: 60 Total Billed Treatment 1 visit EX x 1 FA x 3 KEEGAN PERERA SPOT BILLING CLERK February 17, 2023 12:07
[2023-02-17] MEDS: MONTELUKAST 10 MG (SINGULAIR) TAB PO SCH (22:28)
[2023-02-17] MEDS: traZODone 50 MG (DESYREL) TAB PO SCH (22:28)
[2023-02-18] MEDS: LORazepam 0.5 MG (ATIVAN) TABLET PO PRN ×4 (02:21→22:20)
--- NOTE | 2023-02-18 06:17 | PM&R Progress Note ---
Subjective HPI/CC On Admission Date Seen by Provider: February 18, 2023 Time Seen by Provider: 10:00 Subjective/Events-last exam 02/18/2023: Patient not improving PCP Dr. Michael came to see patient and increased her Zoloft for depression because thinks her lack of motivation is from severe depression which can be a component physical appears to be paramount to the depression Home on hospice is definitely an option or if they would like a nursing facility for slow recovery to see if she does return back to near baseline would be an option 02/17/2023: Patient appears to be very declined Minimal oral intake and minimal motivation Hypotensive episode when she was working with physical therapy required discontinuation of therapy Spoke with at the bedside who appears to be in denial about her end- stage terminal status In my opinion she would meet criteria for home with hospice since it appears that her tells me her daughters refused to send her to a nursing facility 02/16/2023: Slow progress Does not eat well I told to bring in outside food If she fails rehab she will need hospice 02/15/2023: Patient was able to work with therapy today Sat on the side of the bed Patient extremely weak Lies down in bed most of the time Oxygen maintained Labs reviewed Review of Systems General: Fatigue, Malaise Objective Exam Vital Signs Vital Signs Date Time Temp Pulse Resp B/P (MAP) Pulse Ox O2 Delivery O2 Flow Rate FiO2 02/18/23 21:30 100 Nasal Cannula 2.00 02/18/23 20:23 36.5 85 18 123/54 (77) Capillary Refill : General Appearance: No Apparent Distress, WD/WN, Chronically ill, Other (very weak and debilitated) HEENT: PERRL/EOMI, Normal ENT Inspection, Pharynx Normal Neck: Full Range of Motion, Normal Inspection, Non Tender, Supple, Carotid Bruit Respiratory: Chest Non Tender, Lungs Clear, Normal Breath Sounds, No Accessory Muscle Use, No Respiratory Distress, Decreased Breath Sounds Cardiovascular: Regular Rate, Rhythm, No Edema, No Gallop, No JVD, No Murmur, Normal Peripheral Pulses Gastrointestinal: Normal Bowel Sounds, No Organomegaly, No Pulsatile Mass, Non Tender, Soft Back: Normal Inspection, No CVA Tenderness, No Vertebral Tenderness Extremity: Normal Capillary Refill, Normal Inspection, Normal Range of Motion, Non Tender, No Calf Tenderness, No Pedal Edema Neurologic/Psychiatric: Alert, Oriented x3, car loader II-XII Norm as Tested, Depressed Affect, Motor Weakness (generalized severe in nature) Skin: Normal Color, Warm/Dry Lymphatic: No Adenopathy Results/Procedures Lab Patient resulted labs reviewed. FIM Transfers Therapy Code Descriptions/Definitions Functional [place] Measure: 0=Not Assessed/NA 4=Minimal Assistance 1=Total Assistance 5=Supervision or Setup 2=Maximal Assistance 6=Modified [place] 3=Moderate Assistance 7=Complete IndependenceSCALE: Activities may be completed with or without assistive devices. 4-Qzmvvrdpxf-jekkadb completes the activity by him/herself with no assistance from a helper. 5-Set-up or Clean-up Assistance-helper sets up or cleans up; patient completes activity. [place] assists only prior to or following the activity. 4-Supervision or Touching Assistance-helper provides verbal cues and/or touching/steadying and/or contact guard assistance as patient completes activity. Assistance may be provided throughout the activity or intermittently. 3-Partial/Moderate Assistance-helper does LESS THAN HALF the effort. [place] lifts, holds or supports trunk or limbs, but provides less than half the effort. 2-Substantial/Maximal Assistance-helper does MORE THAN HALF the effort. [place] lifts or holds trunk or limbs and provides more than half the effort. 5-Uxxzpduvq-ezlngx does ALL the effort. Patient does none of the effort to complete the activity. Or, the assistance of 2 or more helpers is required for the patient to complete the activity. If activity was not attempted, code reason: 7-Patient Refused. 9-Not Applicable-not attempted and the patient did not perform the activity before the current illness, exacerbation or injury. 10-Not Attempted due to Environmental Limitations-(lack of equipment, weather restraints, etc.). 88-Not Attempted due to Medical Conditions or Safety Concerns. Roll Left to Right (QC): 1 Sit to Lying (QC): 1 Sit to Stand (QC): 1 (Mod/Max A x 2 - half stand from EOB ) Chair/Jht-wb-Mftaw Xfer(QC): 1 Car Transfer (QC): 88 Gait Training Does the Patient Walk?: No and Walking Goal IS indicated Walk 10 feet (QC): 88 Walk 50 ft with 2 Turns(QC): 88 Walk 150 ft (QC): 88 Walking 10ft/uneven surface-QC: 88 Wheelchair Training Does the Pt Use a Wheelchair?: Yes Wheel 50 ft with 2 turns (QC): 88 Wheel 150 ft (QC): 88 Type of Wheelchair: Manual Stair Training 1 Step (curb) (QC): 88 4 Steps (QC): 88 12 Steps (QC): 88 Balance Picking up an Object (QC): 88 ADL-Treatment Eating (QC): 5 (pt ate with fingers.) Oral Hygiene (QC): 3 Shower/Bathe Self (QC): 2 Upper Body Dressing (QC): 2 (Hospital gown only) Lower Body Dressing (QC): 1 On/Off Footwear (QC): 1 Toileting Hygiene (QC): 1 (assist x2-3) Toilet Transfer (QC): 1 (assist x2-3 on/off BSC) Assessment/Plan Assessment and Plan Assess & Plan/Chief Complaint Assessment: COPD myopathy Recent episode of acute respiratory failure requiring transfer to [place] for higher level of care pulmonology expertise Pseudomonas pneumonia with cavitary lesions and Pseudomonas abscesses History of SVT Anxiety 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 Recent acute kidney injury Recent NSTEMI Poor motivation Hypotensive episodes causing interruption in therapy Hospice candidate in my opinion Protein malnutrition Plan: Cefepime antibiotic PT and OT aggressive therapy Home meds Anxiety treatment 02/15/2023: Supportive care Aggressive rehab If this is unsuccessful could very well be a hospice candidate 02/16/2023: Slow recovery If fails rehab needs hospice 02/17/2023: I would recommend hospice at discharge 02/18/2023: Home on hospice or shelter for slower recovery (1) Cavitary lesion of lung (2) Pseudomonas pneumonia (3) Myopathy (4) HTN (hypertension) Status: Acute (5) Supraventricular tachycardia Status: Acute (6) Anxiety Status: Acute (7) HTN (hypertension) Status: Acute ANASTACIO KEY DO February 18, 2023 06:17
[2023-02-18 07:36] VITALS: BP 110/54
[2023-02-18] MEDS: polyethylene glycoL POWDER 17 GM (MIRALAX) PACK PO SCH ×2 (08:46→21:23)
[2023-02-18] MEDS: DOCUSATE SODIUM 100 MG (COLACE) CAP PO SCH ×2 (08:47→21:23)
[2023-02-18] MEDS: PANTOPRAZOLE 40 MG (PROTONIX) TAB PO SCH (08:47)
[2023-02-18] MEDS: LACTOBACILLUS ACIDOPHILUS (PROBIOTIC) CAPSULE PO SCH (08:47)
[2023-02-18] MEDS: ASPIRIN 325 MG (5 GR) TABLET PO SCH (08:47)
[2023-02-18] MEDS: guaiFENesin (MUCINEX) 600 MG TAB PO SCH ×2 (08:47→21:32)
[2023-02-18] MEDS: SERTRALINE 50 MG (ZOLOFT) TABLET PO SCH (08:47)
[2023-02-18] MEDS: SENNA W/DOCUSATE (SENOKOT S) TABLET PO SCH ×2 (08:49→21:23)
[2023-02-18] MEDS: ACETAMINOPHEN 500 MG TAB (TYLENOL) PO PRN ×2 (09:21→22:20)
[2023-02-18 11:04] VITALS: BP 114/58
[2023-02-18] MEDS: lisINopril 10 MG (PRINIVIL) TABLET PO SCH (11:05)
[2023-02-18] MEDS: HYPOCHLOROUS ACID/NaCl (VASHE) 250 ML IR SCH ×2 (11:06→21:32)
--- NOTE | 2023-02-18 11:24 | Physical Therapy Daily Note ---
PT Daily Note-Current Subjective PT/OT co-treat ([id number]), skills of 2 clinicians required to decrease fall risk, increase stamina/strength to promote independence with all mobility and educate/maintain safe positioning with pt while completing functional mobility/tasks. PT focusing on transfers, standing and B LE strengthening while OT focusing on ADLs, functional mobility, positioning and strengthening B UE's. Pt required Max encouragement to participate in PT/OT. Denies pain Pain Numeric Pain Scale: 0-No Pain Location: No Pain Reported Section J - Health Conditions 1. Rarely or not at all 2. Occasionally 3. Frequently 4. Almost constantly 8. Unable to answer Pain Effect on Sleep: 4 Pain Interference with Therapy: 4 Pain Interference w/Day-to-Day: 4 Mental Status Attachments: Oxygen Transfers SCALE: Activities may be completed with or without assistive devices. 9-Zyyjaojxey-uwacxbi completes the activity by him/herself with no assistance from a helper. 5-Set-up or Clean-up Assistance-helper sets up or cleans up; patient completes activity. [place] assists only prior to or following the activity. 4-Supervision or Touching Assistance-helper provides verbal cues and/or touching/steadying and/or contact guard assistance as patient completes activity. Assistance may be provided throughout the activity or intermittently. 3-Partial/Moderate Assistance-helper does LESS THAN HALF the effort. [place] lifts, holds or supports trunk or limbs, but provides less than half the effort. 2-Substantial/Maximal Assistance-helper does MORE THAN HALF the effort. [place] lifts or holds trunk or limbs and provides more than half the effort. 5-Wqyaqprmc-urifzm does ALL the effort. Patient does none of the effort to complete the activity. Or, the assistance of 2 or more helpers is required for the patient to complete the activity. If activity was not attempted, code reason: 7-Patient Refused. 9-Not Applicable-not attempted and the patient did not perform the activity before the current illness, exacerbation or injury. 10-Not Attempted due to Environmental Limitations-(lack of equipment, weather restraints, etc.). 88-Not Attempted due to Medical Conditions or Safety Concerns. Roll Left & Right (QC): 2 Sit to Lying (QC): 2 Lying to Sitting/Side of Bed(Q: 2 Sit to Stand (QC): 88 Chair/Jjq-me-Frmsa Xfer(QC): 1 (SPT) Weight Bearing Right Lower Extremity: Right Full Weight Bearing Left Lower Extremity: Left Full Weight Bearing Gait Training Does the Patient Walk?: No and Walking Goal IS indicated Wheelchair Training Does the Pt Use a Wheelchair?: Yes Wheel 50 ft with 2 turns (QC): 1 Wheel 150 ft (QC): 1 Type of Wheelchair: Manual Treatments PT/OT co-treat ([id number]), skills of 2 clinicians required to decrease fall risk, increase stamina/strength to promote independence with all mobility and educate/maintain safe positioning with pt while completing functional mobility/tasks. PT focusing on transfers, standing and B LE strengthening while OT focusing on ADLs, functional mobility, positioning and strengthening B UE's. Pt completed rolling in bed with Max A. Pt completed supine <> sit with Mod A. Pt completed SPT x 2 with dependence (Max A of 1 and Min A of 1). Pt wheeled to the gym and participated minimally for LE/UE exercises. Pt left in bed with all needs met and call light in reach. Assessment Current Status: Poor Progress Pt required max encouragement for all tx. PT Saute Chef Goals Saute Chef Goals PT Assisted Goals Time Frame: Feb 28, 2023 Roll Left & Right (QC): 3 (Pt will be Min/Mod A for bed mobility and transfers ) Sit to Lying (QC): 3 (Pt will be Min/Mod A for bed mobility and transfers ) Lying-Sitting on Side/Bed(QC): 3 (Pt will be Min/Mod A for bed mobility and transfers ) Sit to Stand (QC): 3 (Pt will be Min/Mod A for bed mobility and transfers ) Chair/Enw-bm-Vfbhq Xfer(QC): 3 (Pt will be Min/Mod A for bed mobility and transfers ) Toilet Transfer (QC): 3 (Pt will be Min/Mod A for bed mobility and transfers ) Car Transfer (QC): 3 (Pt will be Min/Mod A for bed mobility and transfers ) Does the Patient Walk: Yes Walk 10 feet (QC): 3 (Pt will ambulate up to 50ft with the FWW and Min A. ) Walk 50ft with 2 Turns (QC): 3 (Pt will ambulate up to 50ft with the FWW and Min A. ) Walk 150 ft (QC): 88 Walking 10ft on Uneven Surface: 88 1 Step (curb) (QC): 88 4 Steps (QC): 88 12 Steps (QC): 88 Picking up an Object (QC): 3 (Min A) Does the Pt use WC or Scooter?: Yes Wheel 50 feet with 2 turns (QC: 4 (SBA for w/c mobility ) Type: Manual Wheel 150 feet: 4 (SBA for w/c mobility ) Type: Manual PT Plan Problem List Problem List: Activity Tolerance, Functional Strength, Safety, Balance, Gait, Transfer, Bed Mobility, ROM Treatment/Plan Treatment Plan: Continue Plan of Care Treatment Plan: Bed Mobility, Concurrent Therapy, Education, Functional Activity Geraldo, Functional Strength, Group Therapy, Gait, Safety, Therapeutic Exercise, Transfers Treatment Duration: Feb 28, 2023 Frequency: At least 5 of 7 days/Wk (IRF) Estimated Hrs Per Day: 1.5 hours per day Patient and/or Family Agrees t: Yes Safety Risks/Education Patient Education: Transfer Techniques, Disease Process, Safety Issues Teaching Recipient: Patient Teaching Methods: Demonstration, Discussion Response to Teaching: Reinforcement Needed Discharge Recommendations Therapy Discharge Recommendati: 24 Hour Supervision Equpiment Recommendations-D/C: Manual Wheelchair Discharge Status/Home Program Cont per POC Barriers to Progress lack of motivation and participation Target Placement SNF; Hospice? Time Time In: 800 Time Out: 900 DATE: February 18, 2023 Total Billed Treatment Time: 60 Total Billed Treatment 60 min co-tx [id number] EX x 1 FA x 3 KIMBERLEE CAMPA PT February 18, 2023 11:24
--- NOTE | 2023-02-18 11:45 | Physical Therapy Daily Note ---
PT Daily Note-Current Subjective PT/OT co-treat ([id number]), skills of 2 clinicians required to decrease fall risk, increase stamina/strength to promote independence with all mobility and educate/maintain safe positioning with pt while completing functional mobility/tasks. PT focusing on transfers, standing and B LE strengthening while OT focusing on ADLs, functional mobility, positioning and strengthening B UE's. Pt agreeable to tx with max encouragement. Pain Numeric Pain Scale: 0-No Pain Location: No Pain Reported Section J - Health Conditions 1. Rarely or not at all 2. Occasionally 3. Frequently 4. Almost constantly 8. Unable to answer Pain Effect on Sleep: 4 Pain Interference with Therapy: 4 Pain Interference w/Day-to-Day: 4 Transfers SCALE: Activities may be completed with or without assistive devices. 4-Cnazxqedpp-gfwbehj completes the activity by him/herself with no assistance from a helper. 5-Set-up or Clean-up Assistance-helper sets up or cleans up; patient completes activity. [place] assists only prior to or following the activity. 4-Supervision or Touching Assistance-helper provides verbal cues and/or touching/steadying and/or contact guard assistance as patient completes activity. Assistance may be provided throughout the activity or intermittently. 3-Partial/Moderate Assistance-helper does LESS THAN HALF the effort. [place] lifts, holds or supports trunk or limbs, but provides less than half the effort. 2-Substantial/Maximal Assistance-helper does MORE THAN HALF the effort. [place] lifts or holds trunk or limbs and provides more than half the effort. 9-Koajvqxrt-zedgdg does ALL the effort. Patient does none of the effort to complete the activity. Or, the assistance of 2 or more helpers is required for the patient to complete the activity. If activity was not attempted, code reason: 7-Patient Refused. 9-Not Applicable-not attempted and the patient did not perform the activity before the current illness, exacerbation or injury. 10-Not Attempted due to Environmental Limitations-(lack of equipment, weather restraints, etc.). 88-Not Attempted due to Medical Conditions or Safety Concerns. Weight Bearing Right Lower Extremity: Right Full Weight Bearing Left Lower Extremity: Left Full Weight Bearing Treatments PT/OT co-treat ([id number]), skills of 2 clinicians required to decrease fall risk, increase stamina/strength to promote independence with all mobility and educate/maintain safe positioning with pt while completing functional mobility/tasks. PT focusing on transfers, standing and B LE strengthening while OT focusing on ADLs, functional mobility, positioning and strengthening B UE's. Pt completed supine AAROM to B LE and UE. Pt completed reaching activities with a balloon to increase mobility. Assessment Current Status: Poor Progress Pt required max encouragement for all tx. PT Prison Goals Solar Photovoltaic Designer Goals PT Solar Photovoltaic Designer Goals Time Frame: Feb 28, 2023 Roll Left & Right (QC): 3 (Pt will be Min/Mod A for bed mobility and transfers ) Sit to Lying (QC): 3 (Pt will be Min/Mod A for bed mobility and transfers ) Lying-Sitting on Side/Bed(QC): 3 (Pt will be Min/Mod A for bed mobility and transfers ) Sit to Stand (QC): 3 (Pt will be Min/Mod A for bed mobility and transfers ) Chair/Pex-sd-Zhvfg Xfer(QC): 3 (Pt will be Min/Mod A for bed mobility and transfers ) Toilet Transfer (QC): 3 (Pt will be Min/Mod A for bed mobility and transfers ) Car Transfer (QC): 3 (Pt will be Min/Mod A for bed mobility and transfers ) Does the Patient Walk: Yes Walk 10 feet (QC): 3 (Pt will ambulate up to 50ft with the FWW and Min A. ) Walk 50ft with 2 Turns (QC): 3 (Pt will ambulate up to 50ft with the FWW and Min A. ) Walk 150 ft (QC): 88 Walking 10ft on Uneven Surface: 88 1 Step (curb) (QC): 88 4 Steps (QC): 88 12 Steps (QC): 88 Picking up an Object (QC): 3 (Min A) Does the Pt use WC or Scooter?: Yes Wheel 50 feet with 2 turns (QC: 4 (SBA for w/c mobility ) Type: Manual Wheel 150 feet: 4 (SBA for w/c mobility ) Type: Manual PT Plan Problem List Problem List: Activity Tolerance, Functional Strength, Safety, Balance, Gait, Transfer, Bed Mobility, ROM Treatment/Plan Treatment Plan: Continue Plan of Care Treatment Plan: Bed Mobility, Concurrent Therapy, Education, Functional Activity Geraldo, Functional Strength, Group Therapy, Gait, Safety, Therapeutic Exercise, Transfers Treatment Duration: Feb 28, 2023 Frequency: At least 5 of 7 days/Wk (IRF) Estimated Hrs Per Day: 1.5 hours per day Patient and/or Family Agrees t: Yes Safety Risks/Education Patient Education: Disease Process Teaching Recipient: Patient Teaching Methods: Demonstration, Discussion Response to Teaching: Reinforcement Needed Discharge Recommendations Therapy Discharge Recommendati: 24 Hour Supervision Equpiment Recommendations-D/C: Manual Wheelchair Discharge Status/Home Program Cont per POC Barriers to Progress lack of motivation and participation Target Placement SNF; Hospice? Time Time In: 1030 Time Out: 1100 DATE: February 18, 2023 Total Billed Treatment Time: 30 Total Billed Treatment 30 min co-tx [id number] EX x 2 KIMBERLEE CAMAP PT February 18, 2023 11:45
--- NOTE | 2023-02-18 12:40 | Occupational Ther Daily Note ---
OT Current Status-Daily Note Subjective Pt sleeping in bed, woke with difficulty. Pt required max encouragement to participate in therapy. OT/PT co-treat([id number]), skills of 2 clinicians required to decrease fall risk, increase mobility, skilled education/facilitation for benefits of movement and increase overall mobility/activity tolerance. PT focusing on transfers and B LE strengthening while OT focusing on ADLs and B UE strengthening. Mental Status/Objective Patient Orientation: Person, Place, Time, Situation Attachments: IV ADL-Treatment Pt agrees to sponge bath. Pt unwilling to attempt to bathe self, dependent for sponge/bed bath. Max A for bed mobility. Pt does reach across to bed rails and pulls to assist with roll, assist to maintain sidelying. Mod A x2 for supine to sit, max A x2 for sit to supine. Max A x2 for SPT from surface to surface. Pt propelled via w/c to therapy gym. Pt completes 3 B UE exercises with minimal movement until AAROM used. See PT notes for B LE and transfer progress. After session, pt lying in bed with call light/phone in reach. All needs met in room. Therapy Code Descriptions/Definitions Functional [place] Measure: 0=Not Assessed/NA 4=Minimal Assistance 1=Total Assistance 5=Supervision or Setup 2=Maximal Assistance 6=Modified [place] 3=Moderate Assistance 7=Complete IndependenceSCALE: Activities may be completed with or without assistive devices. 7-Zlmvxzqlfi-nsjqogj completes the activity by him/herself with no assistance from a helper. 5-Set-up or Clean-up Assistance-helper sets up or cleans up; patient completes activity. [place] assists only prior to or following the activity. 4-Supervision or Touching Assistance-helper provides verbal cues and/or touching/steadying and/or contact guard assistance as patient completes activity. Assistance may be provided throughout the activity or intermittently. 3-Partial/Moderate Assistance-helper does LESS THAN HALF the effort. [place] lifts, holds or supports trunk or limbs, but provides less than half the effort. 2-Substantial/Maximal Assistance-helper does MORE THAN HALF the effort. [place] lifts or holds trunk or limbs and provides more than half the effort. 8-Bfkwlkvjy-jkrwae does ALL the effort. Patient does none of the effort to complete the activity. Or, the assistance of 2 or more helpers is required for the patient to complete the activity. If activity was not attempted, code reason: 7-Patient Refused. 9-Not Applicable-not attempted and the patient did not perform the activity before the current illness, exacerbation or injury. 10-Not Attempted due to Environmental Limitations-(lack of equipment, weather restraints, etc.). 88-Not Attempted due to Medical Conditions or Safety Concerns. Eating (QC): 7 Shower/Bathe Self (QC): 1 On/Off Footwear: 1 OT Short Term Goals Short Term Goals Time Frame: Feb 28, 2023 Toileting hygiene: 3 Shower/bathe self: 3 Lower body dressin Putting on/taking off footwear: 3 OT Snf Goals Kiln Tester Goals Time Frame: Mar 14, 2023 Acute change in mental status: 1 Inattention: 0 Disorganized thinkin Altered level of consciousness: 0 Eating (QC): 6 Oral Hygiene (QC): 6 Toileting Hygiene (QC): 4 Shower/Bathe Self (QC): 4 Upper Body Dressing (QC): 5 Lower Body Dressing (QC): 4 On/Off Footwear (QC): 5 Additional Goals: 1-Demonstrate ADL Tasks, 2-Verbalize Understanding, 3- ImproveStrength/Geraldo 1=Demonstrate adherence to instructed precautions during ADL tasks. 2=Patient will verbalize/demonstrate understanding of assistive devices/modifications for ADL. 3=Patient will improve strength/tolerance for activity to enable patient to perform ADL's. OT Education/Plan Problem List/Assessment Assessment: Decreased Activ Tolerance, Decreased UE Strength, Dependent Transfers, Impaired Bed Mobility, Impaired Self-Care Skills Discharge Recommendations Plan/Recommendations: Continue POC Treatment Plan/Plan of Care Patient would benefit from OT for education, treatment and training to promote independence in ADL's, mobility, safety and/or upper extremity function for ADL's. Plan of Care: ADL Retraining, Functional Mobility, Group Exercise/Act as Ind, UE Funct Exercise/Act Treatment Duration: Mar 14, 2023 Frequency: At least 5 of 7 days/Wk (IRF) Estimated Hrs Per Day: 1.5 hours per day Agreement: Yes Rehab Potential: Fair Time Start Time: 08:00 Stop Time: 09:00 DATE: February 18, 2023 Total Time Billed (hr/min): 60 Billed Treatment Time 1 visit-ADL x2 (30 min) FA 1 (15 min) EX 1 (15 min) co-treat with PT [phone] LINDA LING February 18, 2023 12:40
--- NOTE | 2023-02-18 12:47 | Occupational Ther Daily Note ---
OT Current Status-Daily Note Subjective Pt sleeping in bed, difficult to wake. Pt required max encouragement to participate in therapy. OT/PT co-treat([id number]), skills of 2 clinicians required to decrease fall risk, increase mobility, skilled education/facilitation for benefits of movement and increase overall mobility/activity tolerance. PT focusing on bed mobility and B LE strengthening while OT focusing on bed mobility and B UE strengthening. Mental Status/Objective Patient Orientation: Person, Place, Time, Situation Attachments: IV ADL-Treatment Therapy Code Descriptions/Definitions Functional [place] Measure: 0=Not Assessed/NA 4=Minimal Assistance 1=Total Assistance 5=Supervision or Setup 2=Maximal Assistance 6=Modified [place] 3=Moderate Assistance 7=Complete IndependenceSCALE: Activities may be completed with or without assistive devices. 4-Uxyvkdmljo-kfbzbqz completes the activity by him/herself with no assistance f rom a helper. 5-Set-up or Clean-up Assistance-helper sets up or cleans up; patient completes activity. [place] assists only prior to or following the activity. 4-Supervision or Touching Assistance-helper provides verbal cues and/or touching/steadying and/or contact guard assistance as patient completes activity. Assistance may be provided throughout the activity or intermittently. 3-Partial/Moderate Assistance-helper does LESS THAN HALF the effort. [place] lifts, holds or supports trunk or limbs, but provides less than half the effort. 2-Substantial/Maximal Assistance-helper does MORE THAN HALF the effort. [place] lifts or holds trunk or limbs and provides more than half the effort. 1-Oxgbmjeyx-avsclt does ALL the effort. Patient does none of the effort to complete the activity. Or, the assistance of 2 or more helpers is required for the patient to complete the activity. If activity was not attempted, code reason: 7-Patient Refused. 9-Not Applicable-not attempted and the patient did not perform the activity before the current illness, exacerbation or injury. 10-Not Attempted due to Environmental Limitations-(lack of equipment, weather restraints, etc.). 88-Not Attempted due to Medical Conditions or Safety Concerns. Other Treatment Pt required AAROM for B UE's to complete full ROM. AAROM for shldr flex and bicep flex. Pt then demonstrated better AROM/strength when given object to reach then hit/grasp. Pt able to complete this with effort and at times AAROM. Pt became more alert during session though has difficulty with lifting B UE's off of bed. Pt stated that she would like to eat some broth, WEBB brought pt broth. Pt did not reach out to take Riley cup but did drink 1/2. Nrsg aware. After therapy, pt lying in bed with call light/phone in reach. Nrsg present in room. OT Short Term Goals Short Term Goals Time Frame: Feb 28, 2023 Toileting hygiene: 3 Shower/bathe self: 3 Lower body dressin Putting on/taking off footwear: 3 OT Snf Goals Snf Goals Time Frame: Mar 14, 2023 Acute change in mental status: 1 Inattention: 0 Disorganized thinkin Altered level of consciousness: 0 Eating (QC): 6 Oral Hygiene (QC): 6 Toileting Hygiene (QC): 4 Shower/Bathe Self (QC): 4 Upper Body Dressing (QC): 5 Lower Body Dressing (QC): 4 On/Off Footwear (QC): 5 Additional Goals: 1-Demonstrate ADL Tasks, 2-Verbalize Understanding, 3- ImproveStrength/Geraldo 1=Demonstrate adherence to instructed precautions during ADL tasks. 2=Patient will verbalize/demonstrate understanding of assistive devices/modifications for ADL. 3=Patient will improve strength/tolerance for activity to enable patient to perform ADL's. OT Education/Plan Problem List/Assessment Assessment: Decreased Activ Tolerance, Decreased UE Strength, Dependent Transfers, Impaired Bed Mobility, Impaired Self-Care Skills, Restricted Funct UE ROM Discharge Recommendations Plan/Recommendations: Continue POC Treatment Plan/Plan of Care Patient would benefit from OT for education, treatment and training to promote independence in ADL's, mobility, safety and/or upper extremity function for ADL's. Plan of Care: ADL Retraining, Functional Mobility, Group Exercise/Act as Ind, UE Funct Exercise/Act Treatment Duration: Mar 14, 2023 Frequency: At least 5 of 7 days/Wk (IRF) Estimated Hrs Per Day: 1.5 hours per day Agreement: Yes Rehab Potential: Fair Time Start Time: 10:30 Stop Time: 11:00 DATE: February 18, 2023 Total Time Billed (hr/min): 30 Billed Treatment Time 1 visit-EX 2 (30 min) co-treat with PT [id number] LINDA LING February 18, 2023 12:47
--- NOTE | 2023-02-18 13:58 | Speech Therapy Progress Note ---
Therapy Progress Note Speech pathology received a cognitive consultation per IRF order set protocol. Speech pathology has not been contacted regarding specific patient needs at this time. ST to discharge order. Please re-consult speech pathology with concerns. GEENA RHODES February 18, 2023 13:57
[2023-02-18] MEDS: ONDANSETRON 4 MG (ZOFRAN) ORAL DISSOLVE TAB PO PRN (15:58)
--- NOTE | 2023-02-18 16:40 | Diagnostic Imaging Report ---
INDICATION: PICC line placement. TIME OF EXAM: 3:28 p.m. COMPARISON: Correlation is made with prior chest from 01/17/2023. FINDINGS: Heart size is stable. Right upper extremity PICC line has the tip in good position overlying the SVC. Lungs are clear. No infiltrates are detected. There is no significant effusion or pneumothorax. IMPRESSION: Satisfactory PICC line placement. Dictated by: Dictated on workstation # [id number]
[2023-02-18 20:23] VITALS: BP 123/54
[2023-02-18] MEDS ORDERED: SODIUM CHLORIDE IR SCH (21:00)
[2023-02-18] MEDS ORDERED: HYPOCHLOROUS ACID IR SCH (21:00)
[2023-02-18] MEDS: traZODone 50 MG (DESYREL) TAB PO SCH (21:32)
[2023-02-18] MEDS: MONTELUKAST 10 MG (SINGULAIR) TAB PO SCH (21:32)
[2023-02-19] MEDS: hydrOXYzine (ATARAX) 10 MG TAB PO PRN ×3 (03:02→18:02)
[2023-02-19] MEDS: LORazepam 0.5 MG (ATIVAN) TABLET PO PRN ×3 (05:01→21:17)
--- NOTE | 2023-02-19 06:08 | PM&R Progress Note ---
Subjective HPI/CC On Admission Date Seen by Provider: February 19, 2023 Time Seen by Provider: 12:00 Subjective/Events-last exam 02/19/2023: Patient about the same No increased motivation with increased Zoloft dose Blood pressure stable Minimal oral intake [facility] evaluation 02/18/2023: Patient not improving PCP Dr. Michael came to see patient and increased her Zoloft for depression because thinks her lack of motivation is from severe depression which can be a component physical appears to be paramount to the depression Home on hospice is definitely an option or if they would like a nursing facility for slow recovery to see if she does return back to near baseline would be an option 02/17/2023: Patient appears to be very declined Minimal oral intake and minimal motivation Hypotensive episode when she was working with physical therapy required discontinuation of therapy Spoke with at the bedside who appears to be in denial about her end- stage terminal status In my opinion she would meet criteria for home with hospice since it appears that her tells me her daughters refused to send her to a nursing facility 02/16/2023: Slow progress Does not eat well I told to bring in outside food If she fails rehab she will need hospice 02/15/2023: Patient was able to work with therapy today Sat on the side of the bed Patient extremely weak Lies down in bed most of the time Oxygen maintained Labs reviewed Review of Systems General: Fatigue, Malaise Objective Exam Vital Signs Vital Signs Date Time Temp Pulse Resp B/P (MAP) Pulse Ox O2 Delivery O2 Flow Rate FiO2 02/19/23 19:07 36.4 92 16 119/55 (76) 99 Nasal Cannula 2.00 Capillary Refill : General Appearance: No Apparent Distress, WD/WN, Chronically ill, Other (very weak and debilitated) HEENT: PERRL/EOMI, Normal ENT Inspection, Pharynx Normal Neck: Full Range of Motion, Normal Inspection, Non Tender, Supple, Carotid Bruit Respiratory: Chest Non Tender, Lungs Clear, Normal Breath Sounds, No Accessory Muscle Use, No Respiratory Distress, Decreased Breath Sounds Cardiovascular: Regular Rate, Rhythm, No Edema, No Gallop, No JVD, No Murmur, Normal Peripheral Pulses Gastrointestinal: Normal Bowel Sounds, No Organomegaly, No Pulsatile Mass, Non Tender, Soft Back: Normal Inspection, No CVA Tenderness, No Vertebral Tenderness Extremity: Normal Capillary Refill, Normal Inspection, Normal Range of Motion, Non Tender, No Calf Tenderness, No Pedal Edema Neurologic/Psychiatric: Alert, Oriented x3, apparel sales leader II-XII Norm as Tested, Depressed Affect, Motor Weakness (generalized severe in nature) Skin: Normal Color, Warm/Dry Lymphatic: No Adenopathy Results/Procedures Lab Laboratory Tests 02/19/23 12:05 Patient resulted labs reviewed. FIM Transfers Therapy Code Descriptions/Definitions Functional [place] Measure: 0=Not Assessed/NA 4=Minimal Assistance 1=Total Assistance 5=Supervision or Setup 2=Maximal Assistance 6=Modified [place] 3=Moderate Assistance 7=Complete IndependenceSCALE: Activities may be completed with or without assistive devices. 8-Sddsmpniaa-yjpfitc completes the activity by him/herself with no assistance from a helper. 5-Set-up or Clean-up Assistance-helper sets up or cleans up; patient completes activity. [place] assists only prior to or following the activity. 4-Supervision or Touching Assistance-helper provides verbal cues and/or touching/steadying and/or contact guard assistance as patient completes activity. Assistance may be provided throughout the activity or intermittently. 3-Partial/Moderate Assistance-helper does LESS THAN HALF the effort. [place] lifts, holds or supports trunk or limbs, but provides less than half the effort. 2-Substantial/Maximal Assistance-helper does MORE THAN HALF the effort. [place] lifts or holds trunk or limbs and provides more than half the effort. 8-Jbzufefst-dupdxz does ALL the effort. Patient does none of the effort to complete the activity. Or, the assistance of 2 or more helpers is required for the patient to complete the activity. If activity was not attempted, code reason: 7-Patient Refused. 9-Not Applicable-not attempted and the patient did not perform the activity before the current illness, exacerbation or injury. 10-Not Attempted due to Environmental Limitations-(lack of equipment, weather restraints, etc.). 88-Not Attempted due to Medical Conditions or Safety Concerns. Roll Left to Right (QC): 2 Sit to Lying (QC): 2 Sit to Stand (QC): 88 Chair/Vhq-fv-Dvvoa Xfer(QC): 1 (SPT) Car Transfer (QC): 88 Gait Training Does the Patient Walk?: No and Walking Goal IS indicated Walk 10 feet (QC): 88 Walk 50 ft with 2 Turns(QC): 88 Walk 150 ft (QC): 88 Walking 10ft/uneven surface-QC: 88 Wheelchair Training Does the Pt Use a Wheelchair?: Yes Wheel 50 ft with 2 turns (QC): 1 Wheel 150 ft (QC): 1 Type of Wheelchair: Manual Stair Training 1 Step (curb) (QC): 88 4 Steps (QC): 88 12 Steps (QC): 88 Balance Picking up an Object (QC): 88 ADL-Treatment Eating (QC): 7 Oral Hygiene (QC): 3 Shower/Bathe Self (QC): 1 Upper Body Dressing (QC): 2 (Hospital gown only) Lower Body Dressing (QC): 1 On/Off Footwear (QC): 1 Toileting Hygiene (QC): 1 (assist x2-3) Toilet Transfer (QC): 1 (assist x2-3 on/off BSC) Assessment/Plan Assessment and Plan Assess & Plan/Chief Complaint Assessment: COPD myopathy Recent episode of acute respiratory failure requiring transfer to [place] for higher level of care pulmonology expertise Pseudomonas pneumonia with cavitary lesions and Pseudomonas abscesses History of SVT Anxiety 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 Recent acute kidney injury Recent NSTEMI Poor motivation Hypotensive episodes causing interruption in therapy Hospice candidate in my opinion Protein malnutrition Plan: Cefepime antibiotic PT and OT aggressive therapy Home meds Anxiety treatment 02/15/2023: Supportive care Aggressive rehab If this is unsuccessful could very well be a hospice candidate 02/16/2023: Slow recovery If fails rehab needs hospice 02/17/2023: I would recommend hospice at discharge 02/18/2023: Home on hospice or fdc for slower recovery 02/19/2023: Needs fdc If fails skilled needs hospice (1) Cavitary lesion of lung (2) Pseudomonas pneumonia (3) Myopathy (4) HTN (hypertension) Status: Acute (5) Supraventricular tachycardia Status: Acute (6) Anxiety Status: Acute (7) HTN (hypertension) Status: Acute ANASTACIO KEY DO February 19, 2023 06:08
[2023-02-19 07:59] VITALS: BP 111/52
[2023-02-19] MEDS: guaiFENesin (MUCINEX) 600 MG TAB PO SCH ×2 (08:03→21:17)
[2023-02-19] MEDS: LACTOBACILLUS ACIDOPHILUS (PROBIOTIC) CAPSULE PO SCH (08:03)
[2023-02-19] MEDS: ASPIRIN 325 MG (5 GR) TABLET PO SCH (08:03)
[2023-02-19] MEDS: PANTOPRAZOLE 40 MG (PROTONIX) TAB PO SCH (08:04)
[2023-02-19] MEDS: DOCUSATE SODIUM 100 MG (COLACE) CAP PO SCH ×2 (08:06→21:12)
[2023-02-19] MEDS: polyethylene glycoL POWDER 17 GM (MIRALAX) PACK PO SCH ×2 (08:07→21:12)
[2023-02-19] MEDS: SENNA W/DOCUSATE (SENOKOT S) TABLET PO SCH ×2 (08:09→21:12)
[2023-02-19] MEDS: SERTRALINE 50 MG (ZOLOFT) TABLET PO SCH (08:12)
[2023-02-19] MEDS: lisINopril 10 MG (PRINIVIL) TABLET PO SCH (08:13)
[2023-02-19] MEDS: ACETAMINOPHEN 500 MG TAB (TYLENOL) PO PRN ×2 (08:21→21:17)
[2023-02-19] MEDS: HYPOCHLOROUS ACID/NaCl (VASHE) 250 ML IR SCH ×2 (10:40→21:16)
--- NOTE | 2023-02-19 10:43 | Occupational Ther Daily Note ---
OT Current Status-Daily Note Subjective Pt sleeping in bed, woke with difficulty. Pt required max encouragement to participate in therapy. OT/PT co-treat([id number]), skills of 2 clinicians required to decrease fall risk, increase mobility, skilled education/facilitation for benefits of movement and increase overall mobility/activity tolerance. PT focusing on transfers, w/c mobility and B LE strengthening while OT focusing on ADLs and B UE strengthening. Mental Status/Objective Patient Orientation: Person, Place, Time, Situation Attachments: IV, Oxygen (2L) ADL-Treatment Pt declines breakfast, stating that she typically doesn't eat breakfast just drink tea. Pt able to reach, grasp and bring cup/straw to lips. Pt agrees to sponge bath. Pt unwilling to attempt to bathe self, dependent for sponge/bed bath. Mod A for bed mobility. Pt does reach across to bed rails and pulls to assist with roll and maintains sidelying. Mod A for supine to sit, max A for sit to supine. Max A x2 for SPT from surface to surface. Pt propelled w/c with physical/verbal ~5' to therapy gym. Pt completes 1 B UE exercise with AAROM. Pt able to track and hit/kick balloon with B UE/LE, does demonstrate delay in reaction. See PT notes for B LE and transfer progress. After session, pt lying in bed with call light/phone in reach. All needs met in room. Therapy Code Descriptions/Definitions Functional [place] Measure: 0=Not Assessed/NA 4=Minimal Assistance 1=Total Assistance 5=Supervision or Setup 2=Maximal Assistance 6=Modified [place] 3=Moderate Assistance 7=Complete IndependenceSCALE: Activities may be completed with or without assistive devices. 2-Chwcxmgvcm-zurvdpk completes the activity by him/herself with no assistance from a helper. 5-Set-up or Clean-up Assistance-helper sets up or cleans up; patient completes activity. [place] assists only prior to or following the activity. 4-Supervision or Touching Assistance-helper provides verbal cues and/or touching/steadying and/or contact guard assistance as patient completes activity. Assistance may be provided throughout the activity or intermittently. 3-Partial/Moderate Assistance-helper does LESS THAN HALF the effort. [place] lifts, holds or supports trunk or limbs, but provides less than half the effort. 2-Substantial/Maximal Assistance-helper does MORE THAN HALF the effort. [place] lifts or holds trunk or limbs and provides more than half the effort. 6-Fgapnuvwu-hcummb does ALL the effort. Patient does none of the effort to complete the activity. Or, the assistance of 2 or more helpers is required for the patient to complete the activity. If activity was not attempted, code reason: 7-Patient Refused. 9-Not Applicable-not attempted and the patient did not perform the activity before the current illness, exacerbation or injury. 10-Not Attempted due to Environmental Limitations-(lack of equipment, weather restraints, etc.). 88-Not Attempted due to Medical Conditions or Safety Concerns. Eating (QC): 7 Shower/Bathe Self (QC): 1 Upper Body Dressing (QC): 2 Lower Body Dressing (QC): 1 On/Off Footwear: 1 Toileting Hygiene (QC): 1 OT Short Term Goals Short Term Goals Time Frame: Feb 28, 2023 Toileting hygiene: 3 Shower/bathe self: 3 Lower body dressin Putting on/taking off footwear: 3 OT Blower Installer Goals [facility] Goals Time Frame: Mar 14, 2023 Acute change in mental status: 1 Inattention: 0 Disorganized thinkin Altered level of consciousness: 0 Eating (QC): 6 Oral Hygiene (QC): 6 Toileting Hygiene (QC): 4 Shower/Bathe Self (QC): 4 Upper Body Dressing (QC): 5 Lower Body Dressing (QC): 4 On/Off Footwear (QC): 5 Additional Goals: 1-Demonstrate ADL Tasks, 2-Verbalize Understanding, 3- ImproveStrength/Geraldo 1=Demonstrate adherence to instructed precautions during ADL tasks. 2=Patient will verbalize/demonstrate understanding of assistive devices/modifications for ADL. 3=Patient will improve strength/tolerance for activity to enable patient to perform ADL's. OT Education/Plan Problem List/Assessment Assessment: Decreased Activ Tolerance, Decreased UE Strength, Dependent Transfers, Impaired Bed Mobility, Impaired Self-Care Skills Discharge Recommendations Plan/Recommendations: Continue POC Treatment Plan/Plan of Care Patient would benefit from OT for education, treatment and training to promote independence in ADL's, mobility, safety and/or upper extremity function for ADL's. Plan of Care: ADL Retraining, Functional Mobility, Group Exercise/Act as Ind, UE Funct Exercise/Act Treatment Duration: Mar 14, 2023 Frequency: At least 5 of 7 days/Wk (IRF) Estimated Hrs Per Day: 1.5 hours per day Agreement: Yes Rehab Potential: Fair Time Start Time: 08:00 Stop Time: 10:00 DATE: February 19, 2023 Total Time Billed (hr/min): 120 Billed Treatment Time 1 visit-ADL 4 (60 min) EX 1 (15 min) FA 3 (45 min) co-treat with PT 0900- 1000, individual [id number] LINDA LING February 19, 2023 10:43
[2023-02-19] MEDS: UMECLIDINIUM BROMIDE (INCRUSE ELLIPTA) 7'S IH SCH (11:24)
[2023-02-19] MEDS: NS IV 1000 ML 1,000 ML IV SCH ×2 (11:59→21:57)
[2023-02-19 12:14] LABS: BASOPHILS # (AUTO) 0.1 10^3/uL (0.0-0.1); BASOPHILS % (AUTO) 1 % (0-10); EOSINOPHILS # (AUTO) 0.1 10^3/uL (0.0-0.3); EOSINOPHILS % (AUTO) 1 % (0-10); HEMATOCRIT 29 % (35-52); HEMOGLOBIN 9.6 g/dL (11.5-16.0); LYMPHOCYTES # (AUTO) 0.9 10^3/uL (1.0-4.0); LYMPHOCYTES % (AUTO) 10 % (12-44); MEAN CORPUSCULAR HEMOGLOBIN 32 pg (25-34); MEAN CORPUSCULAR HGB CONC 33 g/dL (32-36); MEAN CORPUSCULAR VOLUME 97 fL (80-99); MEAN PLATELET VOLUME 10.8 fL (9.0-12.2); MONOCYTES # (AUTO) 0.8 10^3/uL (0.0-1.0); MONOCYTES % (AUTO) 9 % (0-12); NEUTROPHILS # (AUTO) 6.2 10^3/uL (1.8-7.8); NEUTROPHILS % (AUTO) 72 % (42-75); PLATELET COUNT 145 10^3/uL (130-400); WHITE BLOOD COUNT 8.7 10^3/uL (4.3-11.0)
[2023-02-19 12:24] LABS: ALBUMIN 2.4 GM/DL (3.2-4.5)
[2023-02-19 12:25] LABS: POTASSIUM 3.9 MMOL/L (3.6-5.0)
[2023-02-19 12:26] LABS: CALCIUM 8.8 MG/DL (8.5-10.1)
[2023-02-19 12:27] LABS: TOTAL PROTEIN 4.6 GM/DL (6.4-8.2)
[2023-02-19 12:29] LABS: BILIRUBIN,TOTAL 0.5 MG/DL (0.1-1.0)
[2023-02-19 12:31] LABS: CREATININE SERUM 1.04 MG/DL (0.60-1.30)
--- NOTE | 2023-02-19 12:57 | Physical Therapy Daily Note ---
PT Daily Note-Current Subjective Pt required Max encouragement to participate with PT/OT. Pt reported LBP at 9/10 with sitting up in the w/c. PT/OT co-treat([id number]), skills of 2 clinicians required to decrease fall risk, increase mobility, skilled education/facilitation for benefits of movement and increase overall mobility/activity tolerance. PT focusing on transfers, w/c mobility and B LE strengthening while OT focusing on ADLs and B UE strengthening. Pain Numeric Pain Scale: 9 Location: Lower Location Body Site: Back Section J - Health Conditions 1. Rarely or not at all 2. Occasionally 3. Frequently 4. Almost constantly 8. Unable to answer Pain Effect on Sleep: 4 Pain Interference with Therapy: 4 Pain Interference w/Day-to-Day: 4 Transfers SCALE: Activities may be completed with or without assistive devices. 4-Histunmvjr-fgdmvss completes the activity by him/herself with no assistance from a helper. 5-Set-up or Clean-up Assistance-helper sets up or cleans up; patient completes activity. [place] assists only prior to or following the activity. 4-Supervision or Touching Assistance-helper provides verbal cues and/or touching/steadying and/or contact guard assistance as patient completes activity. Assistance may be provided throughout the activity or intermittently. 3-Partial/Moderate Assistance-helper does LESS THAN HALF the effort. [place] lifts, holds or supports trunk or limbs, but provides less than half the effort. 2-Substantial/Maximal Assistance-helper does MORE THAN HALF the effort. [place] lifts or holds trunk or limbs and provides more than half the effort. 4-Dtgzzdrsa-kpdcve does ALL the effort. Patient does none of the effort to complete the activity. Or, the assistance of 2 or more helpers is required for the patient to complete the activity. If activity was not attempted, code reason: 7-Patient Refused. 9-Not Applicable-not attempted and the patient did not perform the activity before the current illness, exacerbation or injury. 10-Not Attempted due to Environmental Limitations-(lack of equipment, weather restraints, etc.). 88-Not Attempted due to Medical Conditions or Safety Concerns. Roll Left & Right (QC): 2 (Mod/Max A) Sit to Lying (QC): 2 (Max A) Lying to Sitting/Side of Bed(Q: 2 (Max A) Sit to Stand (QC): 1 (SPT = Max A x 2) Chair/Emo-mc-Tactv Xfer(QC): 1 (SPT = Max A x 2) Toilet Transfer (QC): 88 Car Transfer (QC): 88 Weight Bearing Right Lower Extremity: Right Full Weight Bearing Left Lower Extremity: Left Full Weight Bearing Gait Training Does the Patient Walk?: No and Walking Goal NOT indicated Walk 10 feet (QC): 88 Walk 50 ft with 2 Turns(QC): 88 Walk 150 ft (QC): 88 Walking 10ft/uneven surface-QC: 88 Wheelchair Training Does the Pt Use a Wheelchair?: Yes Wheel 50 ft with 2 turns (QC): 88 Wheel 150 ft (QC): 88 Type of Wheelchair: Manual Stair Training #of Steps: 0 1 Step (curb) (QC): 88 4 Steps (QC): 88 12 Steps (QC): 88 Balance Picking up an Object (QC): 88 Special Test Comments KU sitting balance scale = 2/5 Treatments Pt completed B rolling with Mod/Max A. Pt completed supine <> sit with Max A. Pt completed SPT x 2 with Max A x 2. Pt completed w/c mobility x 5 with with SBA and Max v/c and t/c to push w/c. Pt completed balloon batting while sitting up in w/c with B UE and LE. AAROM completed to B UE and LE. After session, pt lying in bed with call light/phone in reach. All needs met in room. Assessment Current Status: Fair Progress Pt tolerated PT fairly and is making minimal progress. Tolerated sitting up in the w/c for longer periods. PT Home Stereo Equipment Installer Goals Home Stereo Equipment Installer Goals PT Home Stereo Equipment Installer Goals Time Frame: Feb 28, 2023 Roll Left & Right (QC): 3 (Pt will be Min/Mod A for bed mobility and transfers ) Sit to Lying (QC): 3 (Pt will be Min/Mod A for bed mobility and transfers ) Lying-Sitting on Side/Bed(QC): 3 (Pt will be Min/Mod A for bed mobility and transfers ) Sit to Stand (QC): 3 (Pt will be Min/Mod A for bed mobility and transfers ) Chair/Vfz-ew-Brpjx Xfer(QC): 3 (Pt will be Min/Mod A for bed mobility and transfers ) Toilet Transfer (QC): 3 (Pt will be Min/Mod A for bed mobility and transfers ) Car Transfer (QC): 3 (Pt will be Min/Mod A for bed mobility and transfers ) Does the Patient Walk: Yes Walk 10 feet (QC): 3 (Pt will ambulate up to 50ft with the FWW and Min A. ) Walk 50ft with 2 Turns (QC): 3 (Pt will ambulate up to 50ft with the FWW and Min A. ) Walk 150 ft (QC): 88 Walking 10ft on Uneven Surface: 88 1 Step (curb) (QC): 88 4 Steps (QC): 88 12 Steps (QC): 88 Picking up an Object (QC): 3 (Min A) Does the Pt use WC or Scooter?: Yes Wheel 50 feet with 2 turns (QC: 4 (SBA for w/c mobility ) Type: Manual Wheel 150 feet: 4 (SBA for w/c mobility ) Type: Manual PT Plan Problem List Problem List: Activity Tolerance, Functional Strength, Safety, Balance, Gait, Transfer, Bed Mobility, ROM Treatment/Plan Treatment Plan: Continue Plan of Care Treatment Plan: Bed Mobility, Concurrent Therapy, Education, Functional Activity Geraldo, Functional Strength, Group Therapy, Gait, Safety, Therapeutic Exercise, Transfers Treatment Duration: Feb 28, 2023 Frequency: At least 5 of 7 days/Wk (IRF) Estimated Hrs Per Day: 1.5 hours per day Patient and/or Family Agrees t: Yes Safety Risks/Education Patient Education: Transfer Techniques, Safety Issues Teaching Recipient: Patient Teaching Methods: Demonstration, Discussion Response to Teaching: Unable to Return Demonstration, Reinforcement Needed Discharge Recommendations Therapy Discharge Recommendati: 24 Hour Supervision Equpiment Recommendations-D/C: Manual Wheelchair Discharge Status/Home Program Cont per POC Barriers to Progress limited participation Target Placement SNF vs home with hospice Time Time In: 900 Time Out: 1000 DATE: February 19, 2023 Total Billed Treatment Time: 60 Total Billed Treatment 60 min (co-tx from [id number]) 1 visit EX x 1 FA x 3 KIMBERLEE CAMPA PT February 19, 2023 12:57
[2023-02-19 19:07] VITALS: BP 119/55
[2023-02-19] MEDS: traZODone 50 MG (DESYREL) TAB PO SCH (21:16)
[2023-02-19] MEDS: MONTELUKAST 10 MG (SINGULAIR) TAB PO SCH (21:17)
--- NOTE | 2023-02-20 05:25 | PM&R Progress Note ---
Subjective HPI/CC On Admission Date Seen by Provider: Feb 20, 2023 Time Seen by Provider: 12:00 Subjective/Events-last exam 02/20/2023: Motivation still very poor Just excepted to care home tomorrow for skilled care Hopefully slower recovery will help her but her motivation being so poor likely will make her hospice candidate 02/19/2023: Patient about the same No increased motivation with increased Zoloft dose Blood pressure stable Minimal oral intake [facility] evaluation 02/18/2023: Patient not improving PCP Dr. Michael came to see patient and increased her Zoloft for depression because thinks her lack of motivation is from severe depression which can be a component physical appears to be paramount to the depression Home on hospice is definitely an option or if they would like a nursing facility for slow recovery to see if she does return back to near baseline would be an option 02/17/2023: Patient appears to be very declined Minimal oral intake and minimal motivation Hypotensive episode when she was working with physical therapy required discontinuation of therapy Spoke with at the bedside who appears to be in denial about her end- stage terminal status In my opinion she would meet criteria for home with hospice since it appears that her tells me her daughters refused to send her to a nursing facility 02/16/2023: Slow progress Does not eat well I told to bring in outside food If she fails rehab she will need hospice 02/15/2023: Patient was able to work with therapy today Sat on the side of the bed Patient extremely weak Lies down in bed most of the time Oxygen maintained Labs reviewed Review of Systems General: Fatigue, Malaise Neurological: Weakness Objective Exam Vital Signs Vital Signs Date Time Temp Pulse Resp B/P (MAP) Pulse Ox O2 Delivery O2 Flow Rate FiO2 02/20/23 21:45 99 Nasal Cannula 1.00 02/20/23 20:30 36.3 98 18 148/65 (92) Capillary Refill : General Appearance: No Apparent Distress, WD/WN, Chronically ill, Other (very weak and debilitated) HEENT: PERRL/EOMI, Normal ENT Inspection, Pharynx Normal Neck: Full Range of Motion, Normal Inspection, Non Tender, Supple, Carotid Bruit Respiratory: Chest Non Tender, Lungs Clear, Normal Breath Sounds, No Accessory Muscle Use, No Respiratory Distress, Decreased Breath Sounds Cardiovascular: Regular Rate, Rhythm, No Edema, No Gallop, No JVD, No Murmur, Normal Peripheral Pulses Gastrointestinal: Normal Bowel Sounds, No Organomegaly, No Pulsatile Mass, Non Tender, Soft Back: Normal Inspection, No CVA Tenderness, No Vertebral Tenderness Extremity: Normal Capillary Refill, Normal Inspection, Normal Range of Motion, Non Tender, No Calf Tenderness, No Pedal Edema Neurologic/Psychiatric: Alert, Oriented x3, 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 FIM Transfers Therapy Code Descriptions/Definitions Functional [place] Measure: 0=Not Assessed/NA 4=Minimal Assistance 1=Total Assistance 5=Supervision or Setup 2=Maximal Assistance 6=Modified [place] 3=Moderate Assistance 7=Complete IndependenceSCALE: Activities may be completed with or without assistive devices. 2-Bnqattnopo-nsukjsu completes the activity by him/herself with no assistance from a helper. 5-Set-up or Clean-up Assistance-helper sets up or cleans up; patient completes activity. [place] assists only prior to or following the activity. 4-Supervision or Touching Assistance-helper provides verbal cues and/or touch ing/steadying and/or contact guard assistance as patient completes activity. Assistance may be provided throughout the activity or intermittently. 3-Partial/Moderate Assistance-helper does LESS THAN HALF the effort. [place] lifts, holds or supports trunk or limbs, but provides less than half the effort. 2-Substantial/Maximal Assistance-helper does MORE THAN HALF the effort. [place] lifts or holds trunk or limbs and provides more than half the effort. 1-Fovrbhywc-lkjggk does ALL the effort. Patient does none of the effort to complete the activity. Or, the assistance of 2 or more helpers is required for the patient to complete the activity. If activity was not attempted, code reason: 7-Patient Refused. 9-Not Applicable-not attempted and the patient did not perform the activity before the current illness, exacerbation or injury. 10-Not Attempted due to Environmental Limitations-(lack of equipment, weather restraints, etc.). 88-Not Attempted due to Medical Conditions or Safety Concerns. Roll Left to Right (QC): 2 (Mod/Max A) Sit to Lying (QC): 2 (Max A) Sit to Stand (QC): 1 (SPT = Max A x 2) Chair/Ulx-dq-Qhwrj Xfer(QC): 1 (SPT = Max A x 2) Car Transfer (QC): 88 Gait Training Does the Patient Walk?: No and Walking Goal NOT indicated Walk 10 feet (QC): 88 Walk 50 ft with 2 Turns(QC): 88 Walk 150 ft (QC): 88 Walking 10ft/uneven surface-QC: 88 Wheelchair Training Does the Pt Use a Wheelchair?: Yes Wheel 50 ft with 2 turns (QC): 88 Wheel 150 ft (QC): 88 Type of Wheelchair: Manual Stair Training #of Steps: 0 1 Step (curb) (QC): 88 4 Steps (QC): 88 12 Steps (QC): 88 Balance Picking up an Object (QC): 88 ADL-Treatment Eating (QC): 7 Oral Hygiene (QC): 3 Shower/Bathe Self (QC): 1 Upper Body Dressing (QC): 2 Lower Body Dressing (QC): 1 On/Off Footwear (QC): 1 Toileting Hygiene (QC): 1 Toilet Transfer (QC): 1 (assist x2-3 on/off BSC) Assessment/Plan Assessment and Plan Assess & Plan/Chief Complaint Assessment: COPD myopathy Recent episode of acute respiratory failure requiring transfer to [facility] for higher level of care pulmonology expertise Pseudomonas pneumonia with cavitary lesions and Pseudomonas abscesses History of SVT Anxiety 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 Recent acute kidney injury Recent NSTEMI Poor motivation Hypotensive episodes causing interruption in therapy Hospice candidate in my opinion Protein malnutrition Plan: Cefepime antibiotic PT and OT aggressive therapy Home meds Anxiety treatment 02/15/2023: Supportive care Aggressive rehab If this is unsuccessful could very well be a hospice candidate 02/16/2023: Slow recovery If fails rehab needs hospice 02/17/2023: I would recommend hospice at discharge 02/18/2023: Home on hospice or care home for slower recovery 02/19/2023: Needs care home If fails skilled needs hospice 02/20/2023: half-way tomorrow (1) Cavitary lesion of lung (2) Pseudomonas pneumonia (3) Myopathy (4) HTN (hypertension) Status: Acute (5) Supraventricular tachycardia Status: Acute (6) Anxiety Status: Acute (7) HTN (hypertension) Status: Acute ANASTACIO KEY DO Feb 20, 2023 05:25
[2023-02-20] MEDS: ONDANSETRON 4 MG (ZOFRAN) ORAL DISSOLVE TAB PO PRN ×2 (06:15→15:53)
[2023-02-20] MEDS: LORazepam 0.5 MG (ATIVAN) TABLET PO PRN ×3 (06:37→20:40)
[2023-02-20 07:58] VITALS: BP 132/60
[2023-02-20] MEDS: SERTRALINE 50 MG (ZOLOFT) TABLET PO SCH (07:58)
[2023-02-20] MEDS: LACTOBACILLUS ACIDOPHILUS (PROBIOTIC) CAPSULE PO SCH (07:58)
[2023-02-20] MEDS: PANTOPRAZOLE 40 MG (PROTONIX) TAB PO SCH (07:59)
[2023-02-20] MEDS: ASPIRIN 325 MG (5 GR) TABLET PO SCH (07:59)
[2023-02-20] MEDS: guaiFENesin (MUCINEX) 600 MG TAB PO SCH ×2 (08:00→20:39)
[2023-02-20] MEDS: DOCUSATE SODIUM 100 MG (COLACE) CAP PO SCH ×2 (08:00→20:30)
[2023-02-20] MEDS: polyethylene glycoL POWDER 17 GM (MIRALAX) PACK PO SCH ×2 (08:00→20:30)
[2023-02-20] MEDS: SENNA W/DOCUSATE (SENOKOT S) TABLET PO SCH ×2 (08:00→20:30)
[2023-02-20] MEDS: lisINopril 10 MG (PRINIVIL) TABLET PO SCH (08:01)
[2023-02-20] MEDS: NS IV 1000 ML 1,000 ML IV SCH (08:05)
[2023-02-20] MEDS: UMECLIDINIUM BROMIDE (INCRUSE ELLIPTA) 7'S IH SCH (08:26)
--- NOTE | 2023-02-20 08:55 | Occupational Ther Daily Note ---
OT Current Status-Daily Note Subjective Pt more alert today, sitting up in bed to eat breakfast and drink some hot tea. Pt's voice is strong and clear. Nrsg and respiratory in room to administer medications. WEBB setting up for bathing. Pt stated that she doesn't want to do anything today since she was leaving tomorrow. WEBB and nrsg educated pt on the benefits of moving and working with therapy. Pt continued to adamantly refuse to participate in therapy. Pt wanted to call , WEBB assisted pt with phone call. Pt requested for to 'get here now so that he could tell her about the plans on leaving here'. Pt's agreed. WEBB then continued to encourage pt to participate in bed bath and shampooing hair. In previous sessions, pt has declined to assist and has been dependent for bed bath. WEBB discussed the amount of assistance that pt would need for bathing and that there would be minimal exertion required from pt. Pt stated that she was sick and nauseous and did not want to move. Pt stated that 'you don't understand being sick' to WEBB. WEBB encouraged pt that WEBB would fully assist pt to complete bed bath to cleanse skin and hair. Pt then turned head and would not look at WEBB or acknowledge WEBB in room. Pt then reached for call light, WEBB asked what pt needed, pt ignored WEBB and pushed light. WEBB told pt that it is okay for her to talk to WEBB and ask for assistance. Pt then stated that she wanted her O2 on and to be repositioned. WEBB completed as requested. Pt then closed eyes. Mental Status/Objective Patient Orientation: Person, Situation Attachments: IV ADL-Treatment Pt sitting up in bed and was able to reach with B UE's to grasp and break n[place] into pieces to eat then reached for cup of tea and bring to mouth without spillage. Pt then adamantly refused to complete any therapy, see above note. Respiratory in room and requested to have O2 monitored during therapy and took O2 off since pt had 94 and above O2 levels. Pt's was at 94% with RA when pt requested to have O2 placed again. Pt then requested to be repositioned, max A for turning and positioning. After therapy, pt lying in bed with call light/phone in reach. All needs met in room. Therapy Code Descriptions/Definitions Functional [place] Measure: 0=Not Assessed/NA 4=Minimal Assistance 1=Total Assistance 5=Supervision or Setup 2=Maximal Assistance 6=Modified [place] 3=Moderate Assistance 7=Complete IndependenceSCALE: Activities may be completed with or without assistive devices. 0-Tpbsihixoe-jetixbk completes the activity by him/herself with no assistance from a helper. 5-Set-up or Clean-up Assistance-helper sets up or cleans up; patient completes activity. [place] assists only prior to or following the activity. 4-Supervision or Touching Assistance-helper provides verbal cues and/or touchi ng/steadying and/or contact guard assistance as patient completes activity. Assistance may be provided throughout the activity or intermittently. 3-Partial/Moderate Assistance-helper does LESS THAN HALF the effort. [place] lifts, holds or supports trunk or limbs, but provides less than half the effort. 2-Substantial/Maximal Assistance-helper does MORE THAN HALF the effort. [place] lifts or holds trunk or limbs and provides more than half the effort. 7-Oezfrqohz-mcxzun does ALL the effort. Patient does none of the effort to complete the activity. Or, the assistance of 2 or more helpers is required for the patient to complete the activity. If activity was not attempted, code reason: 7-Patient Refused. 9-Not Applicable-not attempted and the patient did not perform the activity before the current illness, exacerbation or injury. 10-Not Attempted due to Environmental Limitations-(lack of equipment, weather restraints, etc.). 88-Not Attempted due to Medical Conditions or Safety Concerns. Eating (QC): 5 Oral Hygiene (QC): 7 Shower/Bathe Self (QC): 7 Upper Body Dressing (QC): 7 Lower Body Dressing (QC): 7 On/Off Footwear: 7 Toileting Hygiene (QC): 7 OT Short Term Goals Short Term Goals Time Frame: Feb 28, 2023 Toileting hygiene: 3 Shower/bathe self: 3 Lower body dressin Putting on/taking off footwear: 3 OT Fpc Goals Plan Rep Goals Time Frame: Mar 14, 2023 Acute change in mental status: 1 Inattention: 0 Disorganized thinkin Altered level of consciousness: 0 Eating (QC): 6 Oral Hygiene (QC): 6 Toileting Hygiene (QC): 4 Shower/Bathe Self (QC): 4 Upper Body Dressing (QC): 5 Lower Body Dressing (QC): 4 On/Off Footwear (QC): 5 Additional Goals: 1-Demonstrate ADL Tasks, 2-Verbalize Understanding, 3- ImproveStrength/Geraldo 1=Demonstrate adherence to instructed precautions during ADL tasks. 2=Patient will verbalize/demonstrate understanding of assistive devices/modifications for ADL. 3=Patient will improve strength/tolerance for activity to enable patient to perform ADL's. OT Education/Plan Problem List/Assessment Assessment: Decreased Activ Tolerance, Decreased UE Strength, Dependent Transfers, Impaired Bed Mobility, Impaired Self-Care Skills Discharge Recommendations Plan/Recommendations: Continue POC Treatment Plan/Plan of Care Patient would benefit from OT for education, treatment and training to promote independence in ADL's, mobility, safety and/or upper extremity function for ADL's. Plan of Care: ADL Retraining, Functional Mobility, Group Exercise/Act as Ind, UE Funct Exercise/Act Treatment Duration: Mar 14, 2023 Frequency: At least 5 of 7 days/Wk (IRF) Estimated Hrs Per Day: 1.5 hours per day Agreement: Yes Rehab Potential: Fair Time Start Time: 08:00 Stop Time: 09:00 DATE: Feb 20, 2023 Total Time Billed (hr/min): 60 Billed Treatment Time 1 visit-ADL 2 (15 min) FA 2 (15 min) LINDA LING Feb 20, 2023 08:55
--- NOTE | 2023-02-20 10:33 | Occupational Ther Daily Note ---
OT Current Status-Daily Note Subjective Pt lying in bed with eyes closed. Nrsg in room to reposition and change dressing, WEBB assisted. Pt ended therapy when WEBB asked if she was ready to continue therapy in bed, pt began to cry and stated that she hurt all over and was tired of being this way. WEBB has reported this to nrsg, SW and clinical co ordinator. Daughter and are supposed to be coming to see pt this AM. Mental Status/Objective Patient Orientation: Person Attachments: Diane Catheter, IV ADL-Treatment Pt was incontinent of bowel. Nrsg and WEBB cleansed vannessa care/buttocks then repositioned pt with assist x2. Assist x2 to doff/don brief with rolling side to side in supine. After this was completed, pt adamantly refused. See above note. Pt ended therapy at this time and stopped talking to WEBB. Pt lying in bed with call light/phone in reach. All needs met in room. Therapy Code Descriptions/Definitions Functional [place] Measure: 0=Not Assessed/NA 4=Minimal Assistance 1=Total Assistance 5=Supervision or Setup 2=Maximal Assistance 6=Modified [place] 3=Moderate Assistance 7=Complete IndependenceSCALE: Activities may be completed with or without assistive devices. 3-Fpgvayvgds-ibwwrjf completes the activity by him/herself with no assistance from a helper. 5-Set-up or Clean-up Assistance-helper sets up or cleans up; patient completes activity. [place] assists only prior to or following the activity. 4-Supervision or Touching Assistance-helper provides verbal cues and/or touching/steadying and/or contact guard assistance as patient completes activity. Assistance may be provided throughout the activity or intermittently. 3-Partial/Moderate Assistance-helper does LESS THAN HALF the effort. [place] lifts, holds or supports trunk or limbs, but provides less than half the effort. 2-Substantial/Maximal Assistance-helper does MORE THAN HALF the effort. [place] lifts or holds trunk or limbs and provides more than half the effort. 3-Yjyukqwjn-gmcadg does ALL the effort. Patient does none of the effort to complete the activity. Or, the assistance of 2 or more helpers is required for the patient to complete the activity. If activity was not attempted, code reason: 7-Patient Refused. 9-Not Applicable-not attempted and the patient did not perform the activity before the current illness, exacerbation or injury. 10-Not Attempted due to Environmental Limitations-(lack of equipment, weather restraints, etc.). 88-Not Attempted due to Medical Conditions or Safety Concerns. OT Short Term Goals Short Term Goals Time Frame: Feb 28, 2023 Toileting hygiene: 3 Shower/bathe self: 3 Lower body dressin Putting on/taking off footwear: 3 OT Correction Goals Press Machine Feeder Goals Time Frame: Mar 14, 2023 Acute change in mental status: 1 Inattention: 0 Disorganized thinkin Altered level of consciousness: 0 Eating (QC): 6 Oral Hygiene (QC): 6 Toileting Hygiene (QC): 4 Shower/Bathe Self (QC): 4 Upper Body Dressing (QC): 5 Lower Body Dressing (QC): 4 On/Off Footwear (QC): 5 Additional Goals: 1-Demonstrate ADL Tasks, 2-Verbalize Understanding, 3- ImproveStrength/Geraldo 1=Demonstrate adherence to instructed precautions during ADL tasks. 2=Patient will verbalize/demonstrate understanding of assistive devices/modifications for ADL. 3=Patient will improve strength/tolerance for activity to enable patient to perform ADL's. OT Education/Plan Problem List/Assessment Assessment: Decreased Activ Tolerance, Decreased UE Strength, Impaired Bed Mobility, Impaired Self-Care Skills Discharge Recommendations Plan/Recommendations: Continue POC Treatment Plan/Plan of Care Patient would benefit from OT for education, treatment and training to promote independence in ADL's, mobility, safety and/or upper extremity function for ADL's. Plan of Care: ADL Retraining, Functional Mobility, Group Exercise/Act as Ind, UE Funct Exercise/Act Treatment Duration: Mar 14, 2023 Frequency: At least 5 of 7 days/Wk (IRF) Estimated Hrs Per Day: 1.5 hours per day Agreement: Yes Rehab Potential: Fair Time Start Time: 10:00 Stop Time: 10:15 DATE: Feb 20, 2023 Total Time Billed (hr/min): 15 Billed Treatment Time 1 visit-ADL 1 ([id number]) LINDA LING Feb 20, 2023 10:33
[2023-02-20] MEDS: HYPOCHLOROUS ACID/NaCl (VASHE) 250 ML IR SCH ×2 (10:49→20:39)
--- NOTE | 2023-02-20 12:24 | Occupational Ther Daily Note ---
OT Current Status-Daily Note Subjective Family present in room. Pt repeated states loudly that she does not want to get OOB or sit EOB during therapy. Family encouraged pt to participate in supine B UE/LE exercises. Pt allow PT/OT to work with her. Co-treat with PT([id number]) skills of 2 clinicians required due to decreased activity tolerance, heightened emotional state due to medical issues and to modify exercises when appropriate for pt's medical and emotional comfort. PT and OT focusing on B UE/LE exercises throughout session. Mental Status/Objective Patient Orientation: Person, Place, Time, Situation Attachments: IV, Oxygen (2L) ADL-Treatment Therapy Code Descriptions/Definitions Functional [place] Measure: 0=Not Assessed/NA 4=Minimal Assistance 1=Total Assistance 5=Supervision or Setup 2=Maximal Assistance 6=Modified [place] 3=Moderate Assistance 7=Complete IndependenceSCALE: Activities may be completed with or without assistive devices. 5-Mnxbuepjhp-pljmwix completes the activity by him/herself with no assistance from a helper. 5-Set-up or Clean-up Assistance-helper sets up or cleans up; patient completes activity. [place] assists only prior to or following the activity. 4-Supervision or Touching Assistance-helper provides verbal cues and/or touching/steadying and/or contact guard assistance as patient completes activity. Assistance may be provided throughout the activity or intermittently. 3-Partial/Moderate Assistance-helper does LESS THAN HALF the effort. [place] lifts, holds or supports trunk or limbs, but provides less than half the effort. 2-Substantial/Maximal Assistance-helper does MORE THAN HALF the effort. [place] lifts or holds trunk or limbs and provides more than half the effort. 7-Utbtkobns-hjdvvx does ALL the effort. Patient does none of the effort to complete the activity. Or, the assistance of 2 or more helpers is required for the patient to complete the activity. If activity was not attempted, code reason: 7-Patient Refused. 9-Not Applicable-not attempted and the patient did not perform the activity before the current illness, exacerbation or injury. 10-Not Attempted due to Environmental Limitations-(lack of equipment, weather restraints, etc.). 88-Not Attempted due to Medical Conditions or Safety Concerns. Other Treatment Pt completed AAROM exercises for B UE's 1 set 10 reps of each. Pt tolerated well and seemed to calm down during therapy. Pt required assist x2 for bed mobility. Pt requests to have broth for lunch. WEBB set up pt and pt's daughter held cup to drink. After therapy, pt lying in bed with call light/phone in reach. All needs met in room. OT Short Term Goals Short Term Goals Time Frame: Feb 28, 2023 Toileting hygiene: 3 Shower/bathe self: 3 Lower body dressin Putting on/taking off footwear: 3 OT Senior Care Goals Senior Care Goals Time Frame: Mar 14, 2023 Acute change in mental status: 1 Inattention: 0 Disorganized thinkin Altered level of consciousness: 0 Eating (QC): 6 Oral Hygiene (QC): 6 Toileting Hygiene (QC): 4 Shower/Bathe Self (QC): 4 Upper Body Dressing (QC): 5 Lower Body Dressing (QC): 4 On/Off Footwear (QC): 5 Additional Goals: 1-Demonstrate ADL Tasks, 2-Verbalize Understanding, 3- ImproveStrength/Geraldo 1=Demonstrate adherence to instructed precautions during ADL tasks. 2=Patient will verbalize/demonstrate understanding of assistive devices/modifications for ADL. 3=Patient will improve strength/tolerance for activity to enable patient to perform ADL's. OT Education/Plan Problem List/Assessment Assessment: Decreased Activ Tolerance Discharge Recommendations Plan/Recommendations: Continue POC Treatment Plan/Plan of Care Patient would benefit from OT for education, treatment and training to promote independence in ADL's, mobility, safety and/or upper extremity function for ADL's. Plan of Care: ADL Retraining, Functional Mobility, Group Exercise/Act as Ind, UE Funct Exercise/Act Treatment Duration: Mar 14, 2023 Frequency: At least 5 of 7 days/Wk (IRF) Estimated Hrs Per Day: 1.5 hours per day Agreement: Yes Rehab Potential: Fair Time Start Time: 11:30 Stop Time: 12:15 DATE: Feb 20, 2023 Total Time Billed (hr/min): 45 Billed Treatment Time 1 visit-EX 2 (30 min) FA 1 (15 min) cotreat with PT [id number], individual [id number] LINDA LING Feb 20, 2023 12:24
--- NOTE | 2023-02-20 13:44 | Occupational Ther Daily Note ---
OT Current Status-Daily Note Subjective Pt found lying in bed, angrily stated "I already told them I wasn't doing anything". Pt agreed to therapy only while lying supine in bed. ADL-Treatment Pt agreed to oral care using a sponge. Therapist cleaned pts gums, teeth, tongue. Pt agreed to brush hair, therapist brushed pts hair while pt lying supine. Pt agreed to theraputty activity, using medium resistance (pink). Pt completed activity locating 5 beads in putty before becoming fatigued, this addressed fine motor, dexterity, as well as coordination needed for daily activities, and strength. Pt educated on using theraputty, and was left with theraputty in room. Increased time due to fatigue, and lack of motivation. Therapist and family member in room encouraged pt to participate and pt did so until fatigued. Pt was left in room lying supine, call light and phone within reach, all needs met in room. Therapy Code Descriptions/Definitions Functional [place] Measure: 0=Not Assessed/NA 4=Minimal Assistance 1=Total Assistance 5=Supervision or Setup 2=Maximal Assistance 6=Modified [place] 3=Moderate Assistance 7=Complete IndependenceSCALE: Activities may be completed with or without assistive devices. 0-Pnjixjinks-lszuafy completes the activity by him/herself with no assistance from a helper. 5-Set-up or Clean-up Assistance-helper sets up or cleans up; patient completes activity. [place] assists only prior to or following the activity. 4-Supervision or Touching Assistance-helper provides verbal cues and/or touching/steadying and/or contact guard assistance as patient completes activity. Assistance may be provided throughout the activity or intermittently. 3-Partial/Moderate Assistance-helper does LESS THAN HALF the effort. [place] lifts, holds or supports trunk or limbs, but provides less than half the effort. 2-Substantial/Maximal Assistance-helper does MORE THAN HALF the effort. [place] lifts or holds trunk or limbs and provides more than half the effort. 9-Udfpeafze-elgpbu does ALL the effort. Patient does none of the effort to complete the activity. Or, the assistance of 2 or more helpers is required for the patient to complete the activity. If activity was not attempted, code reason: 7-Patient Refused. 9-Not Applicable-not attempted and the patient did not perform the activity before the current illness, exacerbation or injury. 10-Not Attempted due to Environmental Limitations-(lack of equipment, weather restraints, etc.). 88-Not Attempted due to Medical Conditions or Safety Concerns. Oral Hygiene (QC): 1 Education Teaching Recipient: Patient, Family Response to Teaching: Return Demonstration, Reinforcement Needed OT Short Term Goals Short Term Goals Time Frame: Feb 28, 2023 Toileting hygiene: 3 Shower/bathe self: 3 Lower body dressin Putting on/taking off footwear: 3 OT Suppository Molding Machine Operator Goals Suppository Molding Machine Operator Goals Time Frame: Mar 14, 2023 Acute change in mental status: 1 Inattention: 0 Disorganized thinkin Altered level of consciousness: 0 Eating (QC): 6 Oral Hygiene (QC): 6 Toileting Hygiene (QC): 4 Shower/Bathe Self (QC): 4 Upper Body Dressing (QC): 5 Lower Body Dressing (QC): 4 On/Off Footwear (QC): 5 Additional Goals: 1-Demonstrate ADL Tasks, 2-Verbalize Understanding, 3- ImproveStrength/Geraldo 1=Demonstrate adherence to instructed precautions during ADL tasks. 2=Patient will verbalize/demonstrate understanding of assistive devices/modifications for ADL. 3=Patient will improve strength/tolerance for activity to enable patient to perform ADL's. OT Education/Plan Discharge Recommendations Plan/Recommendations: Continue POC Treatment Plan/Plan of Care Patient would benefit from OT for education, treatment and training to promote independence in ADL's, mobility, safety and/or upper extremity function for ADL's. Plan of Care: ADL Retraining, Functional Mobility, Group Exercise/Act as Ind, UE Funct Exercise/Act Treatment Duration: Mar 14, 2023 Frequency: At least 5 of 7 days/Wk (IRF) Estimated Hrs Per Day: 1.5 hours per day Agreement: Yes Rehab Potential: Fair Time Start Time: 13:15 Stop Time: 13:45 DATE: Feb 20, 2023 Total Time Billed (hr/min): 60 Billed Treatment Time 1 visit ADL 1 Ex 1 Kate Quintero COTA Feb 20, 2023 13:44
--- NOTE | 2023-02-20 15:40 | Physical Therapy Daily Note ---
PT Daily Note-Current Subjective Pt was very reluctant this morning to participate with PT or OT, but then becomes agreeable to bed exercises. Pain Section J - Health Conditions 1. Rarely or not at all 2. Occasionally 3. Frequently 4. Almost constantly 8. Unable to answer Pain Effect on Sleep: 4 Pain Interference with Therapy: 4 Pain Interference w/Day-to-Day: 4 Mental Status Attachments: Diane Catheter Transfers SCALE: Activities may be completed with or without assistive devices. 9-Ozdmcgaeke-zutxkbv completes the activity by him/herself with no assistance from a helper. 5-Set-up or Clean-up Assistance-helper sets up or cleans up; patient completes activity. [place] assists only prior to or following the activity. 4-Supervision or Touching Assistance-helper provides verbal cues and/or touching/steadying and/or contact guard assistance as patient completes activity. Assistance may be provided throughout the activity or intermittently. 3-Partial/Moderate Assistance-helper does LESS THAN HALF the effort. [place] lifts, holds or supports trunk or limbs, but provides less than half the effort. 2-Substantial/Maximal Assistance-helper does MORE THAN HALF the effort. [place] lifts or holds trunk or limbs and provides more than half the effort. 3-Nmyfwguhd-ddgyph does ALL the effort. Patient does none of the effort to comp lete the activity. Or, the assistance of 2 or more helpers is required for the patient to complete the activity. If activity was not attempted, code reason: 7-Patient Refused. 9-Not Applicable-not attempted and the patient did not perform the activity before the current illness, exacerbation or injury. 10-Not Attempted due to Environmental Limitations-(lack of equipment, weather restraints, etc.). 88-Not Attempted due to Medical Conditions or Safety Concerns. Weight Bearing Right Lower Extremity: Right Full Weight Bearing Left Lower Extremity: Left Full Weight Bearing Gait Training Does the Patient Walk?: No and Walking Goal NOT indicated Exercises Supine Ex: Ankle pumps, Quad Set, Glut sets, Heel Slides, Short Arc Quads, Straight leg raise (AAROM), Hip abd/add (AAROM) Treatments Co-treat with OT ([id number]) skills of 2 clinicians required due to decreased activity tolerance, heightened emotional state due to medical issues and to modify exercises when appropriate for pt's medical and emotional comfort. PT and OT focusing on B UE/LE exercises throughout session. Pt completed AROM/AAROM to B LE in all planes in supine position. Assessment Current Status: Fair Progress Pt tolerated tx fairly and did participate with Mod v/c. PT Mcfp Goals Mcfp Goals PT Mcfp Goals Time Frame: Feb 28, 2023 Roll Left & Right (QC): 3 (Pt will be Min/Mod A for bed mobility and transfers ) Sit to Lying (QC): 3 (Pt will be Min/Mod A for bed mobility and transfers ) Lying-Sitting on Side/Bed(QC): 3 (Pt will be Min/Mod A for bed mobility and transfers ) Sit to Stand (QC): 3 (Pt will be Min/Mod A for bed mobility and transfers ) Chair/Gpc-dc-Hpqph Xfer(QC): 3 (Pt will be Min/Mod A for bed mobility and transfers ) Toilet Transfer (QC): 3 (Pt will be Min/Mod A for bed mobility and transfers ) Car Transfer (QC): 3 (Pt will be Min/Mod A for bed mobility and transfers ) Does the Patient Walk: Yes Walk 10 feet (QC): 3 (Pt will ambulate up to 50ft with the FWW and Min A. ) Walk 50ft with 2 Turns (QC): 3 (Pt will ambulate up to 50ft with the FWW and Min A. ) Walk 150 ft (QC): 88 Walking 10ft on Uneven Surface: 88 1 Step (curb) (QC): 88 4 Steps (QC): 88 12 Steps (QC): 88 Picking up an Object (QC): 3 (Min A) Does the Pt use WC or Scooter?: Yes Wheel 50 feet with 2 turns (QC: 4 (SBA for w/c mobility ) Type: Manual Wheel 150 feet: 4 (SBA for w/c mobility ) Type: Manual PT Plan Problem List Problem List: Activity Tolerance, Functional Strength, Safety, Balance, Gait, Transfer, Bed Mobility, ROM Treatment/Plan Treatment Plan: Continue Plan of Care Treatment Plan: Bed Mobility, Concurrent Therapy, Education, Functional Activity Geraldo, Functional Strength, Group Therapy, Gait, Safety, Therapeutic Exercise, Transfers Treatment Duration: Feb 28, 2023 Frequency: At least 5 of 7 days/Wk (IRF) Estimated Hrs Per Day: 1.5 hours per day Patient and/or Family Agrees t: Yes Discharge Recommendations Therapy Discharge Recommendati: 24 Hour Supervision Discharge Status/Home Program Cont per POC Barriers to Progress decreased activity tolerance and strength; decreased participation Target Placement SNF Time Time In: 1130 Time Out: 1200 DATE: Feb 20, 2023 Total Billed Treatment Time: 30 Total Billed Treatment 30 min (co-tx from [id number]) 1 visit EX x 2 KIMBERLEE CAMPA PT Feb 20, 2023 15:40
[2023-02-20] MEDS ORDERED: CLN.1T PO (15:56)
[2023-02-20] MEDS ORDERED: METO50TA15 PO (15:56)
[2023-02-20] MEDS ORDERED: LISI10TA25 PO (15:56)
[2023-02-20] MEDS ORDERED: LORA-405 PO (15:56)
[2023-02-20 20:30] VITALS: BP 148/65
[2023-02-20] MEDS: ACETAMINOPHEN 500 MG TAB (TYLENOL) PO PRN (20:39)
[2023-02-20] MEDS: traZODone 50 MG (DESYREL) TAB PO SCH (20:40)
[2023-02-20] MEDS: MONTELUKAST 10 MG (SINGULAIR) TAB PO SCH (20:40)
[2023-02-21] MEDS: hydrOXYzine (ATARAX) 10 MG TAB PO PRN ×2 (00:45→15:25)
[2023-02-21] MEDS: LORazepam 0.5 MG (ATIVAN) TABLET PO PRN ×2 (03:33→10:31)
[2023-02-21] MEDS: ACETAMINOPHEN 500 MG TAB (TYLENOL) PO PRN (03:34)
[2023-02-21] MEDS ORDERED: PANT40TA52 PO (06:22)
[2023-02-21] MEDS ORDERED: MONT-40 PO (06:22)
[2023-02-21] MEDS ORDERED: LACT1CAP7 PO (06:22)
[2023-02-21] MEDS ORDERED: UMEC62.5 IH (06:22)
[2023-02-21] MEDS ORDERED: LORA-404 PO (06:22)
[2023-02-21] MEDS ORDERED: ASPI-808 PO (06:22)
[2023-02-21] MEDS ORDERED: HEPA500018 SC (06:22)
[2023-02-21] MEDS ORDERED: TRZ50T PO (06:22)
[2023-02-21] MEDS ORDERED: GUAI600T43 PO (06:22)
[2023-02-21] MEDS ORDERED: SERT-413 PO (06:22)
[2023-02-21] MEDS ORDERED: ONDA4TAB11 PO (06:22)
[2023-02-21] MEDS ORDERED: ACET-93 PO (06:22)
[2023-02-21] MEDS ORDERED: DILT240C91 PO (06:22)
[2023-02-21] MEDS ORDERED: HYDR-3584 PO (06:22)
[2023-02-21] MEDS ORDERED: LISI10TA25 PO (06:22)
[2023-02-21] MEDS ORDERED: RT-ALBUINH INH (06:22)
--- NOTE | 2023-02-21 06:23 | Discharge Summary ---
Diagnosis/Chief Complaint Date of Admission February 14, 2023 at 13:52 Date of Discharge Discharge Date: Feb 21, 2023 Discharge Diagnosis 02/20/2023: Motivation still very poor Just excepted [facility] [place] [facility] care Hopefully slower recovery will help her but her motivation being so poor likely will make her hospice candidate 02/19/2023: Patient about the same No increased motivation with increased Zoloft dose Blood pressure stable Minimal oral intake [facility] evaluation 02/18/2023: Patient not improving PCP Dr. Michael came to see patient and increased her Zoloft for depression because thinks her lack of motivation is from severe depression which can be a component physical appears to be paramount to the depression Home on hospice is definitely an option or if they would like a nursing facility for slow recovery to see if she does return back to near baseline would be an option 02/17/2023: Patient appears to be very declined Minimal oral intake and minimal motivation Hypotensive episode when she was working with physical therapy required discontinuation of therapy Spoke with at the bedside who appears to be in denial about her end- stage terminal status In my opinion she would meet criteria for home with hospice since it appears that her tells me her daughters refused to send her to a nursing facility 02/16/2023: Slow progress Does not eat well I told to bring in outside food If she fails rehab she will need hospice 02/15/2023: Patient was able to work with therapy today Sat on the side of the bed Patient extremely weak Lies down in bed most of the time Oxygen maintained Labs reviewed Assessment: COPD myopathy Recent episode of acute respiratory failure requiring transfer to [place] for higher level of care pulmonology expertise Pseudomonas pneumonia with cavitary lesions and Pseudomonas abscesses History of SVT Anxiety 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 Recent acute kidney injury Recent NSTEMI Poor motivation Hypotensive episodes causing interruption in therapy Hospice candidate in my opinion Protein malnutrition Plan: Cefepime antibiotic PT and OT aggressive therapy Home meds Anxiety treatment 02/15/2023: Supportive care Aggressive rehab If this is unsuccessful could very well be a hospice candidate 02/16/2023: Slow recovery If fails rehab needs hospice 02/17/2023: I would recommend hospice at discharge 02/18/2023: Home on hospice or [facility] for slower recovery 02/19/2023: Needs [place] If fails skilled needs hospice 02/20/2023: [facility] tomorrow (1) Cavitary lesion of lung (2) Pseudomonas pneumonia (3) Myopathy (4) HTN (hypertension) Status: Acute (5) Supraventricular tachycardia Status: Acute (6) Anxiety Status: Acute (7) HTN (hypertension) Status: Acute Discharge Summary Discharge Physical Examination Allergies: Coded Allergies: codeine (Verified Allergy, Unknown, 03/23/08) gatifloxacin (Verified Allergy, Unknown, 03/23/08) nitrofurantoin (Verified Allergy, Unknown, 03/23/08) Vitals & I&Os Vital Signs Date Time Temp Pulse Resp B/P (MAP) Pulse Ox O2 Delivery O2 Flow Rate FiO2 02/21/23 15:30 36.4 84 18 105/64 99 Nasal Cannula 2.00 General Appearance: Alert, Other (Flat affect poor motivation) Respiratory: Clear to Auscultation Cardiovascular: Regular Rate Hospital Course Was the Problem List Reviewed?: Yes Patient had a standard hospital course on ARU after she was moved from [place] following acute hypoxic respiratory failure and Pseudomonas pneumonia with multiple lung abscesses requiring completion of cefepime. She was quite debilitated when she arrived and poor motivation worsen the situation until she was really not eating or drinking much requiring IV fluids and although labs remained stable she was deemed not a candidate to return home she was found to have skilled benefits she was moved over [place] the [place] [facility] for slower recovery and help with regaining function in order to return back to independent if poor motivation and recovery does not occur she will be a hospice candidate. Labs (last 24 hrs) Laboratory Tests 02/15/23 05:05: White Blood Count 10.0, Red Blood Count 3.27L, Hemoglobin 10.5L, Hematocrit 32L, Mean Corpuscular Volume 97, Mean Corpuscular Hemoglobin 32, Mean Corpuscular Hemoglobin Concent 33, Red Cell Distribution Width 17.8H, Platelet Count 128L, Mean Platelet Volume 11.7, Immature Granulocyte % (Auto) 9, Neutrophils (%) (Auto) 76H, Lymphocytes (%) (Auto) 7L, Monocytes (%) (Auto) 8, Eosinophils (%) (Auto) 1, Basophils (%) (Auto) 1, Neutrophils # (Auto) 7.6, Lymphocytes # (Auto) 0.7L, Monocytes # (Auto) 0.8, Eosinophils # (Auto) 0.1, Basophils # (Auto) 0.1, Immature Granulocyte # (Auto) 0.9H, Neutrophils % (Manual) 71, Lymphocytes % (Manual) 6, Monocytes % (Manual) 10, Eosinophils % (Manual) 1, Basophils % (Manual) 2, Myelocytes % 1, Band Neutrophils 9, Percent Immature Platelet Fraction 7.9H, Anisocytosis SLIGHT, Sodium Level 137, Potassium Level 3.5L, Chloride Level 106, Carbon Dioxide Level 23, Anion Gap 8, Blood Urea Nitrogen 14, Creatinine 0.56L, Estimat Glomerular Filtration Rate 94, BUN/Creatinine Ratio 25, Glucose Level 80, Calcium Level 8.4L, Corrected Calcium 9.7, Total Bilirubin 0.7, Aspartate Amino Transf (AST/SGOT) 18, Alanine Aminotransferase (ALT/SGPT) 32, Alkaline Phosphatase 68, Total Protein 4.4L, Albumin 2.4L 02/17/23 05:40: White Blood Count 8.8, Red Blood Count 3.26L, Hemoglobin 10.4L, Hematocrit 31L, Mean Corpuscular Volume 96, Mean Corpuscular Hemoglobin 32, Mean Corpuscular Hemoglobin Concent 33, Red Cell Distribution Width 18.0H, Platelet Count 129L, Mean Platelet Volume 11.1, Immature Granulocyte % (Auto) 7, Neutrophils (%) (Auto) 75, Lymphocytes (%) (Auto) 9L, Monocytes (%) (Auto) 8, Eosinophils (%) (Auto) 1, Basophils (%) (Auto) 1, Neutrophils # (Auto) 6.6, Lymphocytes # (Auto) 0.8L, Monocytes # (Auto) 0.7, Eosinophils # (Auto) 0.1, Basophils # (Auto) 0.0, Immature Granulocyte # (Auto) 0.6H, Percent Immature Platelet Fraction 7.2, S odium Level 136, Potassium Level 3.8, Chloride Level 107, Carbon Dioxide Level 22, Anion Gap 7, Blood Urea Nitrogen 15, Creatinine 0.60, Estimat Glomerular Filtration Rate 92, BUN/Creatinine Ratio 25, Glucose Level 84, Calcium Level 8.6, Corrected Calcium 9.9, Total Bilirubin 0.7, Aspartate Amino Transf (AST/SGOT) 18, Alanine Aminotransferase (ALT/SGPT) 28, Alkaline Phosphatase 75, Total Protein 4.6L, Albumin 2.4L 02/19/23 12:05: White Blood Count 8.7, Red Blood Count 3.01L, Hemoglobin 9.6L, Hematocrit 29L, Mean Corpuscular Volume 97, Mean Corpuscular Hemoglobin 32, Mean Corpuscular Hemoglobin Concent 33, Red Cell Distribution Width 18.2H, Platelet Count 145, Mean Platelet Volume 10.8, Immature Granulocyte % (Auto) 8, Neutrophils (%) (Auto) 72, Lymphocytes (%) (Auto) 10L, Monocytes (%) (Auto) 9, Eosinophils (%) (Auto) 1, Basophils (%) (Auto) 1, Neutrophils # (Auto) 6.2, Lymphocytes # (Auto) 0.9L, Monocytes # (Auto) 0.8, Eosinophils # (Auto) 0.1, Basophils # (Auto) 0.1, Immature Granulocyte # (Auto) 0.7H, Sodium Level 134L, Potassium Level 3.9, Chloride Level 105, Carbon Dioxide Level 20L, Anion Gap 9, Blood Urea Nitrogen 32H, Creatinine 1.04, Estimat Glomerular Filtration Rate 55, BUN/Creatinine Ratio 31, Glucose Level 74, Calcium Level 8.8, Corrected Calcium 10.1, Total Bilirubin 0.5, Aspartate Amino Transf (AST/SGOT) 17, Alanine Aminotransferase (ALT/SGPT) 24, Alkaline Phosphatase 69, Total Protein 4.6L, Albumin 2.4L Pending Labs Laboratory Tests 02/15/23 05:05: White Blood Count 10.0, Red Blood Count 3.27, Hemoglobin 10.5, Hematocrit 32, Mean Corpuscular Volume 97, Mean Corpuscular Hemoglobin 32, Mean Corpuscular Hemoglobin Concent 33, Red Cell Distribution Width 17.8, Platelet Count 128, Mean Platelet Volume 11.7, Immature Granulocyte % (Auto) 9, Neutrophils (%) (Auto) 76, Lymphocytes (%) (Auto) 7, Monocytes (%) (Auto) 8, Eosinophils (%) (Auto) 1, Basophils (%) (Auto) 1, Neutrophils # (Auto) 7.6, Lymphocytes # (Auto) 0.7, Monocytes # (Auto) 0.8, Eosinophils # (Auto) 0.1, Basophils # (Auto) 0.1, Immature Granulocyte # (Auto) 0.9, Neutrophils % (Manual) 71, Lymphocytes % (Manual) 6, Monocytes % (Manual) 10, Eosinophils % (Manual) 1, Basophils % (Manual) 2, Myelocytes % 1, Band Neutrophils 9, Percent Immature Platelet Fraction 7.9, Anisocytosis SLIGHT, Sodium Level 137, Potassium Level 3.5, Chloride Level 106, Carbon Dioxide Level 23, Anion Gap 8, Blood Urea Nitrogen 14, Creatinine 0.56, Estimat Glomerular Filtration Rate 94, BUN/Creatinine Ratio 25, Glucose Level 80, Calcium Level 8.4, Corrected Calcium 9.7, Total Bilirubin 0.7, Aspartate Amino Transf (AST/SGOT) 18, Alanine Aminotransferase (ALT/SGPT) 32, Alkaline Phosphatase 68, Total Protein 4.4, Albumin 2.4 02/17/23 05:40: White Blood Count 8.8, Red Blood Count 3.26, Hemoglobin 10.4, Hematocrit 31, Mean Corpuscular Volume 96, Mean Corpuscular Hemoglobin 32, Mean Corpuscular Hemoglobin Concent 33, Red Cell Distribution Width 18.0, Platelet Count 129, Mean Platelet Volume 11.1, Immature Granulocyte % (Auto) 7, Neutrophils (%) (Auto) 75, Lymphocytes (%) (Auto) 9, Monocytes (%) (Auto) 8, Eosinophils (%) (Auto) 1, Basophils (%) (Auto) 1, Neutrophils # (Auto) 6.6, Lymphocytes # (Auto) 0.8, Monocytes # (Auto) 0.7, Eosinophils # (Auto) 0.1, Basophils # (Auto) 0.0, Immature Granulocyte # (Auto) 0.6, Percent Immature Platelet Fraction 7.2, Sodium Level 136, Potassium Level 3.8, Chloride Level 107, Carbon Dioxide Level 22, Anion Gap 7, Blood Urea Nitrogen 15, Creatinine 0.60, Estimat Glomerular Filtration Rate 92, BUN/Creatinine Ratio 25, Glucose Level 84, Calcium Level 8.6, Corrected Calcium 9.9, Total Bilirubin 0.7, Aspartate Amino Transf (AST/SGOT) 18, Alanine Aminotransferase (ALT/SGPT) 28, Alkaline Phosphatase 75, Total Protein 4.6, Albumin 2.4 02/19/23 12:05: White Blood Count 8.7, Red Blood Count 3.01, Hemoglobin 9.6, Hematocrit 29, Mean Corpuscular Volume 97, Mean Corpuscular Hemoglobin 32, Mean Corpuscular Hemoglobin Concent 33, Red Cell Distribution Width 18.2, Platelet Count 145, Mean Platelet Volume 10.8, Immature Granulocyte % (Auto) 8, Neutrophils (%) (Auto) 72, Lymphocytes (%) (Auto) 10, Monocytes (%) (Auto) 9, Eosinophils (%) (Auto) 1, Basophils (%) (Auto) 1, Neutrophils # (Auto) 6.2, Lymphocytes # (Auto) 0.9, Monocytes # (Auto) 0.8, Eosinophils # (Auto) 0.1, Basophils # (Auto) 0.1, Immature Granulocyte # (Auto) 0.7, Sodium Level 134, Potassium Level 3.9, Chloride Level 105, Carbon Dioxide Level 20, Anion Gap 9, Blood Urea Nitrogen 32, Creatinine 1.04, Estimat Glomerular Filtration Rate 55, BUN/Creatinine Ratio 31, Glucose Level 74, Calcium Level 8.8, Corrected Calcium 10.1, Total Bilirubin 0.5, Aspartate Amino Transf (AST/SGOT) 17, Alanine Aminotransferase (ALT/SGPT) 24, Alkaline Phosphatase 69, Total Protein 4.6, Albumin 2.4 Discharge Home Medications: Active Scripts Active Ativan (Lorazepam) 0.5 Mg Tablet 0.5 Mg PO TID PRN Acidophilus-Pectin Capsule (Lactobacillus Acidophilus/Pect) 75 Million Cell-100 Mg Capsule 2 Each PO DAILY Pantoprazole Sodium 40 Mg Tablet.dr 40 Mg PO DAILY Ondansetron Odt (Ondansetron) 4 Mg Tab.rapdis 4 Mg PO Q6H PRN Mucinex (Guaifenesin) 600 Mg Tab.er.12h 1,200 Mg PO BID Montelukast Sodium 10 Mg Tablet 10 Mg PO HS Hydroxyzine HCl 10 Mg Tablet 10 Mg PO TID PRN Trazodone HCl 50 Mg Tablet 50 Mg PO HS Sertraline HCl 50 Mg Tablet 100 Mg PO DAILY Acetaminophen 500 Mg Tablet 1,000 Mg PO Q6H PRN Aspirin 325 Mg Tablet 325 Mg PO DAILY Lisinopril 10 Mg Tablet 30 Mg PO DAILY@0900 Diltiazem 24Hr ER (Diltiazem HCl) 240 Mg Cap.er.24h 240 Mg PO DAILY@0900 Heparin Sodium (Heparin Sodium,Porcine) 5,000 Unit/Ml Vial 5,000 Units SC Q12HR Incruse Ellipta (Umeclidinium [place]) 62.5 Mcg/Actuation Blst.w.dev 0 Inh IH DAILY@0800 daily Ventolin Hfa (Albuterol Sulfate) 1 Puff Puff 2 Puff INH QID PRN Instructions to patient/family Please see electronic discharge instructions given to patient. Diagnosis/Problems Diagnosis/Problems (1) Cavitary lesion of lung (2) Pseudomonas pneumonia (3) Myopathy (4) HTN (hypertension) Status: Acute (5) Supraventricular tachycardia Status: Acute (6) Anxiety Status: Acute (7) HTN (hypertension) Status: Acute ANASTACIO KEY DO Feb 21, 2023 06:23
--- NOTE | 2023-02-21 06:23 | Discharge Inst-Skilled Nursing ---
Discharge Inst-Skilled NF Reconcile Patient Problems Problems Reviewed?: Yes Patient Instructions Patient Problems: Debility Consult/Follow Up/Orders Follow Up Appt.: PCP Dr Michael CO rounds Skilled NF Admit to: [facility] ([facility]) I certify that SNF services are required to be given on an inpatient basis because of the above named patient's need for snf care on a continuing basis for the conditions(s) for which he/she was receiving inpatient hospital services prior to his/her transfer to the SNF. Jail Facility Order: Nursing Services, Material Handler Loader-Evaluate & Treat, Physical Therapy-Evaluate & Treat, Speech Language-Evaluate & Treat Oxygen Delivery Method: Nasal Cannula Discharge Diet: No Restrictions Resuscitation Status: Full Code New & Resume Previous Orders New Medications: Lorazepam (Ativan) 0.5 Mg Tablet 0.5 MG PO TID PRN for ANXIETY, #20 TAB Acetaminophen (Acetaminophen) 500 Mg Tablet 1000 MG PO Q6H PRN for PAIN-MILD (1-4), #30 TAB Aspirin (Aspirin) 325 Mg Tablet 325 MG PO DAILY, #30 TAB Diltiazem HCl (Diltiazem 24Hr ER) 240 Mg Cap.er.24h 240 MG PO DAILY@0900, #30 CAP Guaifenesin (Mucinex) 600 Mg Tab.er.12h 1200 MG PO BID, #60 TAB Heparin Sodium,Porcine (Heparin Sodium) 5,000 Unit/Ml Vial 5000 UNITS SC Q12HR, #28 VIAL Hydroxyzine HCl (Hydroxyzine HCl) 10 Mg Tablet 10 MG PO TID PRN for ANXIETY, #30 TAB Lactobacillus Acidophilus/Pect (Acidophilus-Pectin Capsule) 75 Million Cell-100 Mg Capsule 2 EACH PO DAILY, #60 CAP Lisinopril (Lisinopril) 10 Mg Tablet 30 MG PO DAILY@0900, #30 TAB Montelukast Sodium (Montelukast Sodium) 10 Mg Tablet 10 MG PO HS, #30 TAB Ondansetron (Ondansetron Odt) 4 Mg Tab.rapdis 4 MG PO Q6H PRN for NAUSEA/VOMITING-1ST LINE, #12 TAB Pantoprazole Sodium (Pantoprazole Sodium) 40 Mg Tablet.dr 40 MG PO DAILY, #30 TAB Sertraline HCl (Sertraline HCl) 50 Mg Tablet 100 MG PO DAILY, #30 TAB Trazodone HCl (Trazodone HCl) 50 Mg Tablet 50 MG PO HS, #30 TAB Umeclidinium [place] (Incruse Ellipta) 62.5 Mcg/Actuation Blst.w.dev 0 INH IH DAILY@0800, #1 EA daily Continued Medications: Albuterol Sulfate (Ventolin Hfa) 1 Puff Puff 2 PUFF INH QID PRN for SHORTNESS OF BREATH, #1 EA (This prescription has been renewed) Discontinued Medications: Clonidine HCl (Clonidine HCl) 0.1 Mg Tablet 0.1 MG PO TID PRN for SBP OVER 180, TAB Lisinopril (Lisinopril) 10 Mg Tablet 10 MG PO DAILY, TAB Lorazepam (Ativan) 1 Mg Tablet 1 MG PO Q6H PRN for ANXIETY, TAB Metoprolol Tartrate (Metoprolol Tartrate) 50 Mg Tablet 50-100 MG PO BID, TAB Lianna Victoria Feb 21, 2023 06:22 LIANNA VICTORIA DO Feb 21, 2023 06:23
[2023-02-21 07:43] VITALS: BP 105/64
--- NOTE | 2023-02-21 08:02 | Therapy Team Discharge Summary ---
Therapy Discharge Summary Discharge Recommendations Date of Discharge Therapy D/C Recommendations: Long Term (TCU/NH) (OT) Physical Therapy Roll Left to Right (QC): 2 (Mod/Max A) Sit to Lying (QC): 2 (Max A) Lying to Sitting/Side of Bed(Q: 2 (Max A) Sit to Stand (QC): 1 (SPT = Max A x 2) Chair/Xij-fi-Ufuss Xfer(QC): 1 (SPT = Max A x 2) Toilet Transfer (QC): 88 Car Transfer (QC): 88 Does the Patient Walk: No and Walking Goal NOT indicated Mode of Locomotion: Both Anticipated Mode of Locomotion: Wheelchair Walk 10 feet (QC): 88 Walk 50 ft with 2 Turns(QC): 88 Walk 150 ft (QC): 88 Walking 10ft on uneven surface: 88 Does the Pt Use a Wheelchair: Yes Wheel 50 ft with 2 turns (QC): 88 Wheel 150 ft (QC): 88 Type of Wheelchair: Manual #of Steps: 0 1 Step (curb) (QC): 88 4 Steps (QC): 88 12 Steps (QC): 88 Balance Sitting Static: Poor Balance Sitting Dynamic: Poor Balance-Standing Static: Poor Picking up an Object (QC): 88 Occupational Therapy Pt admitted to ARU with COPD myopathy. At [facility], pt was independent with ADLs and functional mobility, no AD. Upon initial evaluation, pt required mod A with eating and oral care, max A showering and UE dressing and total assist with footwear, toileting and LE dressing. OT tx focused on increasing BUE strength and activity tolerance, and increasing safety and independence with ADLS and functional mobility. Pt did not make progress towards goals. Progress was limited by pt's refusal to participate in tx session and ADLS. Pt discharging to SNF on this date for continued therapy, d/c from OT. Decreased Activ Tolerance, Decreased UE Strength, Dependent Transfers, Impaired Bed Mobility, Impaired Coordination, Impaired Funct Balance, Impaired I ADL's, Impaired Self-Care Skills, Restricted Funct UE ROM Eating (QC): 5 Oral Hygiene (QC): 1 Shower/Bathe Self (QC): 1 Upper Body Dressing (QC): 2 Lower Body Dressing (QC): 1 On/Off Footwear (QC): 1 Toileting Hygiene (QC): 1 PT Hand Engraver Goals Hand Engraver Goals PT Hand Engraver Goals Time Frame: Feb 28, 2023 Roll Left to Right (QC): 3 (Pt will be Min/Mod A for bed mobility and transfers ) Sit to Lying (QC): 3 (Pt will be Min/Mod A for bed mobility and transfers ) Lying-Sitting on Side/Bed(QC): 3 (Pt will be Min/Mod A for bed mobility and transfers ) Sit to Stand (QC): 3 (Pt will be Min/Mod A for bed mobility and transfers ) Chair/Qcw-pj-Gdvay Xfer(QC): 3 (Pt will be Min/Mod A for bed mobility and transfers ) Toilet/Commode Transfer (QC): 3 (Pt will be Min/Mod A for bed mobility and transfers ) Car Transfer (QC): 3 (Pt will be Min/Mod A for bed mobility and transfers ) Does the Patient Walk: Yes Walk 10 feet (QC): 3 (Pt will ambulate up to 50ft with the FWW and Min A. ) Walk 10ft-Uneven Surface(QC): 88 Walk 50ft with 2 Turns (QC): 3 (Pt will ambulate up to 50ft with the FWW and Min A. ) Walk 150 ft (QC): 88 Does the Pt use WC or Scooter?: Yes Wheel 50 feet with 2 turns (QC: 4 (SBA for w/c mobility ) Type: Manual Wheel 150 feet: 4 (SBA for w/c mobility ) Type: Manual 1 Step (curb) (QC): 88 4 Steps (QC): 88 12 Steps (QC): 88 Picking up an Object (QC): 3 (Min A) OT Hand Engraver Goals Hand Engraver Goals Time Frame: Mar 14, 2023 Acute change in mental status: 1 Inattention: 0 Disorganized thinkin Altered level of consciousness: 0 Eating (QC): 6 (not met) Oral Hygiene (QC): 6 (not met) Toileting Hygiene (QC): 4 (not met) Shower/Bathe Self (QC): 4 (not met) Upper Body Dressing (QC): 5 (not met) Lower Body Dressing (QC): 4 (not met) On/Off Footwear (QC): 5 (not met) Additional Goals: 1-Demonstrate ADL Tasks, 2-Verbalize Understanding, 3- ImproveStrength/Geraldo 1=Demonstrate adherence to instructed precautions during ADL tasks. 2=Patient will verbalize/demonstrate understanding of assistive devices/modifications for ADL. 3=Patient will improve strength/tolerance for activity to enable patient to perform ADL's. ELAINE TRIVEDI OT Feb 21, 2023 08:02
[2023-02-21] MEDS: UMECLIDINIUM BROMIDE (INCRUSE ELLIPTA) 7'S IH SCH (08:17)
--- NOTE | 2023-02-21 09:39 | IRF PAI BIMS ---
BIMS CAM BIMS Expression of Ideas and Wants: Without Difficulty Understanding Verbal Content: Sometimes Understands Brief Interview/Mental Status: Yes IRF MEGAN BIMS: IRF MEGAN BIMS Response (Comments) Value Repitition of Three Words Three 3 Recalls Socks Yes, No Cue Required 2 Recalls Blue Yes, No Cue Required 2 Recalls Bed Yes, No Cue Required 2 Year Correct 3 Month Accurate Within 5 Days 2 Day Incorrect or No Answer 0 Total 14 Patient Normally Able to Recal: Current Session, That he/she in a hsp Should Staff Asses. Mental St.: No CAM Mental Status Change/Baseline: 1 Inattention: 0 Disorganized thinkin Altered level of consciousness: 2 LINDA LING Feb 21, 2023 09:39
[2023-02-21] MEDS: LACTOBACILLUS ACIDOPHILUS (PROBIOTIC) CAPSULE PO SCH (10:31)
[2023-02-21] MEDS: DOCUSATE SODIUM 100 MG (COLACE) CAP PO SCH (10:31)
[2023-02-21] MEDS: ASPIRIN 325 MG (5 GR) TABLET PO SCH (10:31)
[2023-02-21] MEDS: HYPOCHLOROUS ACID/NaCl (VASHE) 250 ML IR SCH (10:31)
[2023-02-21] MEDS: lisINopril 10 MG (PRINIVIL) TABLET PO SCH (10:32)
[2023-02-21] MEDS: SENNA W/DOCUSATE (SENOKOT S) TABLET PO SCH (10:32)
[2023-02-21] MEDS: SERTRALINE 50 MG (ZOLOFT) TABLET PO SCH (10:32)
[2023-02-21] MEDS: PANTOPRAZOLE 40 MG (PROTONIX) TAB PO SCH (10:32)
[2023-02-21] MEDS: polyethylene glycoL POWDER 17 GM (MIRALAX) PACK PO SCH (10:32)
[2023-02-21] MEDS: guaiFENesin (MUCINEX) 600 MG TAB PO SCH (10:32)
[2023-02-21] MEDS: ONDANSETRON 4 MG (ZOFRAN) ORAL DISSOLVE TAB PO PRN (15:25)
[2023-02-21 15:30] VITALS: BP 105/64
--- NOTE | 2023-02-21 16:58 | Therapy Team Discharge Summary ---
Therapy Discharge Summary Discharge Recommendations Date of Discharge Feb 21, 2023 at 15:45 Therapy D/C Recommendations: [facility] (TCU/[facility]) (OT) Physical Therapy Pt admitted to ARU on 02/14/2023 with COPD myopathy. At [facility], pt was independent with ADLs and functional mobility, no AD. Upon initial evaluation, pt required Max A/Dep for bed mobility and transfers. PT focused on B LE strength, bed mobility, functional transfers, and sitting tolerance, as well as core strength. Pt did not make progress towards goals. Progress was limited by pt's refusal to participate in tx sessions and lack of motivation. Pt was self-limiting with treatment. Pt discharging to SNF on this date (02/21/2023) for continued therapy, d/c from PT. Roll Left to Right (QC): 2 (Mod/Max A) Sit to Lying (QC): 2 (Max A) Lying to Sitting/Side of Bed(Q: 2 (Max A) Sit to Stand (QC): 1 (SPT = Max A x 2) Chair/Etk-cz-Pmjuc Xfer(QC): 1 (SPT = Max A x 2) Toilet Transfer (QC): 88 Car Transfer (QC): 88 Does the Patient Walk: No and Walking Goal NOT indicated Mode of Locomotion: Both Anticipated Mode of Locomotion: Wheelchair Walk 10 feet (QC): 88 Walk 50 ft with 2 Turns(QC): 88 Walk 150 ft (QC): 88 Walking 10ft on uneven surface: 88 Does the Pt Use a Wheelchair: Yes Wheel 50 ft with 2 turns (QC): 88 Wheel 150 ft (QC): 88 Type of Wheelchair: Manual #of Steps: 0 1 Step (curb) (QC): 88 4 Steps (QC): 88 12 Steps (QC): 88 Balance Sitting Static: Fair Balance Sitting Dynamic: Poor Balance-Standing Static: Poor Picking up an Object (QC): 88 Occupational Therapy Decreased Activ Tolerance, Decreased UE Strength, Dependent Transfers, Impaired Bed Mobility, Impaired Coordination, Impaired Funct Balance, Impaired I ADL's, Impaired Self-Care Skills, Restricted Funct UE ROM Eating (QC): 5 Oral Hygiene (QC): 1 Shower/Bathe Self (QC): 1 Upper Body Dressing (QC): 2 Lower Body Dressing (QC): 1 On/Off Footwear (QC): 1 Toileting Hygiene (QC): 1 PT Director Of Retail Marketing Goals Snf Goals PT Director Of Retail Marketing Goals Time Frame: Feb 28, 2023 Roll Left to Right (QC): 3 (Pt will be Min/Mod A for bed mobility and transfers ) Sit to Lying (QC): 3 (Pt will be Min/Mod A for bed mobility and transfers ) Lying-Sitting on Side/Bed(QC): 3 (Pt will be Min/Mod A for bed mobility and transfers ) Sit to Stand (QC): 3 (Pt will be Min/Mod A for bed mobility and transfers ) Chair/Qno-ui-Sjlyl Xfer(QC): 3 (Pt will be Min/Mod A for bed mobility and transfers ) Toilet/Commode Transfer (QC): 3 (Pt will be Min/Mod A for bed mobility and transfers ) Car Transfer (QC): 3 (Pt will be Min/Mod A for bed mobility and transfers ) Does the Patient Walk: Yes Walk 10 feet (QC): 3 (Pt will ambulate up to 50ft with the FWW and Min A. ) Walk 10ft-Uneven Surface(QC): 88 Walk 50ft with 2 Turns (QC): 3 (Pt will ambulate up to 50ft with the FWW and Min A. ) Walk 150 ft (QC): 88 Does the Pt use WC or Scooter?: Yes Wheel 50 feet with 2 turns (QC: 4 (SBA for w/c mobility ) Type: Manual Wheel 150 feet: 4 (SBA for w/c mobility ) Type: Manual 1 Step (curb) (QC): 88 4 Steps (QC): 88 12 Steps (QC): 88 Picking up an Object (QC): 3 (Min A) OT Snf Goals Director Of Retail Marketing Goals Time Frame: Mar 14, 2023 Acute change in mental status: 1 Inattention: 0 Disorganized thinkin Altered level of consciousness: 2 Eating (QC): 6 (not met) Oral Hygiene (QC): 6 (not met) Toileting Hygiene (QC): 4 (not met) Shower/Bathe Self (QC): 4 (not met) Upper Body Dressing (QC): 5 (not met) Lower Body Dressing (QC): 4 (not met) On/Off Footwear (QC): 5 (not met) Additional Goals: 1-Demonstrate ADL Tasks, 2-Verbalize Understanding, 3- ImproveStrength/Geraldo 1=Demonstrate adherence to instructed precautions during ADL tasks. 2=Patient will verbalize/demonstrate understanding of assistive devices/modifications for ADL. 3=Patient will improve strength/tolerance for activity to enable patient to perform ADL's. KIMBERLEE CAMPA PT Feb 21, 2023 16:58
== END 2023-02-21 15:45 | DRG 91 ==
PROVIDERS: ADMIT Internal Medicine; ATTEND Internal Medicine
DX: G72.89 Other specified myopathies (principal); J85.1 Abscess of lung with pneumonia; I47.1 Supraventricular tachycardia; E46 Unspecified protein-calorie malnutrition; B96.5 Pseudomonas (aeruginosa) (mallei) (pseudomallei) as the cause of diseases classified elsewhere; I11.0 Hypertensive heart disease with heart failure; I50.9 Heart failure, unspecified; E11.9 Type 2 diabetes mellitus without complications; I25.2 Old myocardial infarction; J44.9 Chronic obstructive pulmonary disease, unspecified; F41.9 Anxiety disorder, unspecified; F32.A Depression, unspecified; K21.9 Gastro-esophageal reflux disease without esophagitis; I95.9 Hypotension, unspecified; Z68.23 Body mass index [BMI] 23.0-23.9, adult; Z87.891 Personal history of nicotine dependence; Z79.82 Long term (current) use of aspirin; Z79.899 Other long term (current) drug therapy; Z88.1 Allergy status to other antibiotic agents; Z88.5 Allergy status to narcotic agent
CPT/HCPCS: 36415; 71045; 80053; 85007; 85025; 85027; 94640; 94760

== ENCOUNTER 2023-03-01 08:17 | Emergency (ER) | payer MEDICARE, OTHER ==
[~2023-03-01] VITALS: Ht 167 cm; Wt 60.8 kg
[~2023-03-01 08:17] MED LIST changes: +ACET-2267 PO; +ACET-93 PO; +ALBU1.25 INH; +ALTE2VIA2 IJ; +ASPI-808 PO; +CEFE1FRO IV; +DILT-10 PO; +DILT240C91 PO; +GUAI120013 PO; +GUAI600T43 PO; +HEPA500018 SC; +HEPARIN 5000 UNIT/ML SC; +HYDR-3584 PO; +LACT1CAP40 PO; +LACT1CAP7 PO; +LISI30TA5 PO; +LORA-404 PO; +MONT-40 PO; +ONDA4TAB11 PO; +PANT40TA52 PO; +REVE175V IH; +SERT-413 PO; +TRZ50T PO; +UMEC62.5 IH; +[UNRECOGNIZED DRUG - CODE] SQ
--- NOTE | 2023-03-01 08:42 | ED General ---
General Chief Complaint: General Problems/Pain Stated Complaint: WEAKNESS Nursing Triage Note: PT TO [facility] WITH CC OF WEAKNESS FOR A COUPLE DAYS, PT HAS A PICC LINE IN RT ARM WITH FLUIDS RUNNING AND A LEDESMA CATH WITH DARK URINE, STATES LOW BACK PAIN AND NAUSEA. AT BEDSIDE STATES PT JUST LEFT REHAB HERE AND SENT TO [facility] AFTER BEING AT [facility] FOR PNEUMONIA, PT HAS BEEN SICK FOR 7 WEEKS. PER LEDESMA WAS DRAINED LAST NIGHT AND 350 MLS DRAINED AT TRIAGE. Source of Information: Family () History of Present Illness Date Seen by Provider: Mar 01, 2023 Time Seen by Provider: 08:30 Initial Comments Patient is a 77-year-old female who presents by ambulance from home chief compl aint concern for decreased urine output from her Ledesma catheter. Patient has had a prolonged recent illness over the last 6 weeks, pneumonia which resulted in two 1 week ICU stays, a total of 4 weeks at [facility] and then 2 weeks here on ARU. Patient was discharged to [facility]. Daughter is reportedly were concerned that she was not receiving her ordered physical therapy and brought her home about a week ago. Her PICC line remains in place right upper arm and she has a Ledesma catheter. states she is not really eating. She is not able to get up and walk at home. She is not getting physical therapy at home. She is not eating or drinking much. Her last bowel movement was yesterday but has been states he believes she is constipated. The patient is complaining of some low back pain secondary to a decubitus ulcer at her sacrum. She does not have any antibiotics currently going. The Ledesma catheter was placed about a week ago while she was at [facility]. reports no cough. She does have low oxygen saturations in the low 90s at 1 point to 89. She is not on supplemental oxygen. states that he has hospice coming to the house on Friday morning. She is afebrile at presentation. Timing/Duration: 1-2 Days Associated Systoms: Other (back pain) Allergies and Home Medications Allergies Coded Allergies: codeine (Verified Allergy, Unknown, 03/23/08) gatifloxacin (Verified Allergy, Unknown, 03/23/08) nitrofurantoin (Verified Allergy, Unknown, 03/23/08) Patient Home Medication List Home Medication List Reviewed: Yes Acetaminophen (Acetaminophen) 500 Mg Tablet, 1,000 MG PO Q6H PRN for PAIN-MILD (1-4) Prescribed by: ANASTACIO KEY on 02/21/23621 Albuterol Sulfate (Ventolin Hfa) 1 Puff Puff, 2 PUFF INH QID PRN for SHORTNESS OF BREATH Prescribed by: ANASTACIO KEY on 02/21/23621 Aspirin (Aspirin) 325 Mg Tablet, 325 MG PO DAILY Prescribed by: ANASTACIO KEY on 02/21/23621 Diltiazem HCl (Diltiazem 24Hr ER) 240 Mg Cap.er.24h, 240 MG PO DAILY@0900 Prescribed by: ANASTACIO KEY on 02/21/23621 Guaifenesin (Mucinex) 600 Mg Tab.er.12h, 1,200 MG PO BID Prescribed by: ANASTACIO KEY on 02/21/23621 Heparin Sodium,Porcine (Heparin Sodium) 5,000 Unit/Ml Vial, 5,000 UNITS SC Q12HR Prescribed by: ANASTACIO KEY on 02/21/23621 Hydroxyzine HCl (Hydroxyzine HCl) 10 Mg Tablet, 10 MG PO TID PRN for ANXIETY Prescribed by: ANASTACIO KEY on 02/21/23621 Lactobacillus Acidophilus/Pect (Acidophilus-Pectin Capsule) 75 Million Cell-100 Mg Capsule, 2 EACH PO DAILY Prescribed by: ANASTACIO KEY on 02/21/23621 Lisinopril (Lisinopril) 10 Mg Tablet, 30 MG PO DAILY@0900 Prescribed by: ANASTACIO KEY on 02/21/23621 Lorazepam (Ativan) 0.5 Mg Tablet, 0.5 MG PO TID PRN for ANXIETY Prescribed by: ANASTACIO KEY on 02/21/23621 Montelukast Sodium (Montelukast Sodium) 10 Mg Tablet, 10 MG PO HS Prescribed by: ANASTACIO KEY on 02/21/23621 Ondansetron (Ondansetron Odt) 4 Mg Tab.rapdis, 4 MG PO Q6H PRN for NAUSEA/VOMITING-1ST LINE Prescribed by: ANASTACIO KEY on 02/21/23621 Pantoprazole Sodium (Pantoprazole Sodium) 40 Mg Tablet.dr, 40 MG PO DAILY Prescribed by: ANASTACIO KEY on 02/21/23621 Sertraline HCl (Sertraline HCl) 50 Mg Tablet, 100 MG PO DAILY Prescribed by: ANASTACIO KEY on 02/21/23621 Trazodone HCl (Trazodone HCl) 50 Mg Tablet, 50 MG PO HS Prescribed by: ANASTACIO KEY on 02/21/23621 Umeclidinium [place] (Incruse Ellipta) 62.5 Mcg/Actuation Blst.w.dev, 0 INH IH DAILY@0800 Prescribed by: ANASTACIO KEY on 02/21/23621 Review of Systems Review of Systems Constitutional: see HPI, malaise, weakness EENTM: no symptoms reported Respiratory: no symptoms reported Cardiovascular: no symptoms reported Gastrointestinal: loss of appetite, nausea Genitourinary: decreased output Musculoskeletal: back pain Skin: other (ulcer at sacrum) Past Couvoko-Cdajtb-Pbzpgg Hx Immunizations Up To Date Tetanus Booster (TDap): Unknown PED Vaccines UTD: Yes First/Initial COVID19 Vaccinat: YES Seasonal Allergies Seasonal Allergies: Yes Past Medical History Surgery/Hospitalization HX: appy, copd, asthma, htn, svt, gerd, anx/dep Surgeries: Yes Appendectomy Respiratory: Yes Asthma, COPD Currently Using CPAP: No Currently Using BIPAP: No Cardiac: Yes (SVT) 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, Irregular Heartbeat Neurological: No Reproductive Disorders: No Female Reproductive Disorders: Denies [employer] History: 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 Sexually Transmitted Disease: No Genitourinary: No Renal Failure Gastrointestinal: Yes Gastroesophageal Reflux Musculoskeletal: Yes (RIGHT HUMERUS FRACTURE, R FOOT) Arthritis, Fractures Endocrine: No HEENT: No Cancer: No Psychosocial: Yes Anxiety, Depression Integumentary: No Blood Disorders: No Family Medical History Dementia 19 MOTHER, , Age:88, Onset:60 years & older FH: CAD (coronary artery disease) 19 FATHER, , Age:64, Onset:60 years & older FH: CHF (congestive heart failure) 19 MOTHER, , Age:88, Onset:60 years & older Myocardial infarction 19 MOTHER, , Age:88, Onset:50's - 60 No Family History of: AIDS Abdominal aortic aneurysm Fonda's disease Alcoholism Alzheimer's disease Aphasia Arthritis Asthma Cancer of mouth Cardiovascular disease Cataracts Colon cancer Completed stroke Congenital disease Congenital heart disease Coronary thrombosis Cystic fibrosis Deafness or hearing loss Diabetes mellitus Drug abuse Dysphasia Fibrocystic disease of breast Gastroenteritis Glaucoma Headache disorder Hypercholesterolemia 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 Infertility Kidney disease Neoplasm Not obtainable due to adoption Osteoporosis Parkinson's disease Prostate cancer Psychosocial problem Respiratory disorder Seizure disorder Severe allergy Thyroid disease Tuberculosis Visual disorder Heart Disease, Diabetes, 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 Physical Exam Vital Signs Vital Signs - First Documented 03/01/23 08:23 Temp 36.5 Pulse 101 B/P (MAP) 105/53 (70) Capillary Refill : Height, Weight, BMI Height: 5'3.00" Weight: 140lbs. 0.0oz. 63.030061vq; 21.00 BMI Method:Stated General Appearance: No Apparent Distress Eyes: Bilateral Eye Normal Inspection, Bilateral Eye PERRL, Bilateral Eye EOMI HEENT: PERRL/EOMI, Other (dry oral mucosa) Respiratory: No Accessory Muscle Use, No Respiratory Distress, Crackles (bilaterally lower lobes; (anterior chest auscultated)), Other (room air sats 89-92%) Cardiovascular: Regular Rate, Rhythm, Normal Peripheral Pulses Gastrointestinal: Normal Bowel Sounds, Soft, Tenderness (mild suprapubic tenderness) Genital/Rectal: Other (dark urine in ledesma catheter; soft brown stool at rectum) Extremity: Normal Inspection, No Pedal Edema Neurologic/Psychiatric: Alert, Other (hard of hearing) Skin: Warm/Dry, Pallor, Other (2 small shallow ulcers at sacrum with minimal erythema surrounding) Progress/Results/Core Measures Suspected Sepsis SIRS Temperature: Pulse: 101 Respiratory Rate: Laboratory Tests 03/01/23 08:25: White Blood Count 16.5H Blood Pressure 105 /53 Mean: 70 Laboratory Tests 03/01/23 08:25: Creatinine 0.87, Platelet Count 299 Results/Orders Lab Results Laboratory Tests Test 03/01/23 08:25 03/01/23 10:50 Range/Units White Blood Count 16.5 H 4.3-11.0 10^3/uL Red Blood Count 3.17 L 3.80-5.11 10^6/uL Hemoglobin 10.1 L 11.5-16.0 g/dL Hematocrit 30 L 35-52 % Mean Corpuscular Volume 96 80-99 fL Mean Corpuscular Hemoglobin 32 25-34 pg Mean Corpuscular Hemoglobin Concent 33 32-36 g/dL Red Cell Distribution Width 18.4 H 10.0-14.5 % Platelet Count 299 130-400 10^3/uL Mean Platelet Volume 10.3 9.0-12.2 fL Immature Granulocyte % (Auto) 7 % Neutrophils (%) (Auto) 54 42-75 % Lymphocytes (%) (Auto) 24 12-44 % Monocytes (%) (Auto) 14 H 0-12 % Eosinophils (%) (Auto) 1 0-10 % Basophils (%) (Auto) 1 0-10 % Neutrophils # (Auto) 8.9 H 1.8-7.8 10^3/uL Lymphocytes # (Auto) 3.9 1.0-4.0 10^3/uL Monocytes # (Auto) 2.3 H 0.0-1.0 10^3/uL Eosinophils # (Auto) 0.1 0.0-0.3 10^3/uL Basophils # (Auto) 0.2 H 0.0-0.1 10^3/uL Immature Granulocyte # (Auto) 1.2 H 0.0-0.1 10^3/uL Neutrophils % (Manual) 54 % Lymphocytes % (Manual) 22 % Monocytes % (Manual) 8 % Eosinophils % (Manual) 1 % Basophils % (Manual) 0 % Metamyelocytes % 6 % Myelocytes % 7 % Band Neutrophils 2 % Polychromasia SLIGHT Anisocytosis MODERATE Sodium Level 137 135-145 MMOL/L Potassium Level 4.3 3.6-5.0 MMOL/L Chloride Level 105 98-107 MMOL/L Carbon Dioxide Level 21 21-32 MMOL/L Anion Gap 11 5-14 MMOL/L Blood Urea Nitrogen 26 H 7-18 MG/DL Creatinine 0.87 0.60-1.30 MG/DL Estimat Glomerular Filtration Rate 69 BUN/Creatinine Ratio 30 Glucose Level 109 H 70-105 MG/DL Calcium Level 8.3 L 8.5-10.1 MG/DL Urine Color YELLOW Urine Clarity SL CLOUDY Urine pH 5.5 5-9 Urine Specific [place] 1.015 L 1.016-1.022 Urine Protein TRACE H NEGATIVE Urine Glucose (UA) NEGATIVE NEGATIVE Urine Ketones NEGATIVE NEGATIVE Urine Nitrite NEGATIVE NEGATIVE Urine Bilirubin 1+ H NEGATIVE Urine Urobilinogen 1.0 < = 1.0 MG/DL Urine Leukocyte Esterase 3+ H NEGATIVE Urine RBC (Auto) 2+ H NEGATIVE Urine RBC 5-10 H /HPF Urine WBC 25-50 H /HPF Urine Squamous Epithelial Cells 5-10 /HPF Urine Crystals NONE /LPF Urine Bacteria MODERATE H /HPF Urine Casts NONE /LPF Urine Mucus NEGATIVE /LPF Urine Yeast LARGE H /HPF Urine Culture Indicated YES My Orders Orders - BIRTT OLMOS MD Ed Iv/Invasive Line Start (03/01/23 08:42) Cbc With Automated Diff (03/01/23 08:42) Basic Metabolic Panel (03/01/23 08:42) Ua Culture If Indicated (03/01/23 08:42) Bladder Scan (03/01/23 08:42) Chest 1 View, Ap/Pa Only (03/01/23 08:42) Manual Differential (03/01/23 08:25) Ns Iv 1000 Ml (Sodium Chloride 0.9%) (03/01/23 10:15) Urine Culture (03/01/23 10:50) Vital Signs/I&O 03/01/23 08:23 Temp 36.5 Pulse 101 B/P (MAP) 105/53 (70) Capillary Refill : Blood Pressure Mean: 70 Progress Note : Time: 11:40 Progress Note Patient seen and evaluated by me. Evaluation today includes physical exam, CBC, basic metabolic panel, urinalysis and chest x-ray. Pertinent physical exam findings elderly, frail, ill-appearing female in no acute distress. She is very hard of hearing. She has very dry oral mucosa. She is alert she does answer questions appropriately. Heart is regular, slightly tachycardic at 100 bpm, lungs are crackly bilaterally at the bases auscultated anteriorly. Abdomen is soft, no involuntary guarding or rebound tenderness. No lower extremity edema. She does have 2 small shallow ulcers at the sacrum. Mild surrounding erythema, tender to palpation. She does have soft brown stool around the rectum and on the buttocks bilaterally. No focal neurologic deficits. Diffusely generally. Differential diagnosis based on history and physical, sepsis,/pneumonia/urinary tract infection/dehydration/failure to thrive. Labs reviewed as well as EKG and independently interpreted by me. CBC shows a leukocytosis of 16.5, hemoglobin of 10.1 hematocrit of 30. Her platelet count is 299. She has a 14% monocytosis. Her basic metabolic panel is all within normal range, her glucose is 109. She has an indwelling Ledesma catheter which has very dark orange urine. It took 2 L of IV fluids to get her to start producing urine. This is a gravity 1.015. 3+ leukocyte esterase, 2+ red blood cells with 5-10 per high-powered field. 25-50 white blood cells, moderate bacteria negative nitrite. Chest x-ray shows no focal infiltrates or effusions. Patient was resting comfortably throughout her ED stay. As the 's primary concern was lack of drainage into the catheter that has been corrected after IV fluids. Suspect dehydration is secondary to poor oral intake as the patient is still generally weak. Has been plans on having hospice come to evaluate the patient on Friday. He would like to put her back in the correction either [facility] or PICC care and rehab. She has no clinical or objective findings concerning for sepsis. Her heart rate is down in the 80s. Her blood pressure is good. Return precautions have been provided. I advised the that we will culture her urine and if it grows any pathologic/concerning bacteria we will call in antibiotics. He verbalized understanding and agreement with the plan of care. All questions are sought and answered Diagnostic Imaging Diagonstic Imaging: Xray Plain Films/CT/US/NM/MRI: chest Comments NAME: [facility] REC#: [id number] PT STATUS: REG ER : 1945 PHYSICIAN: BRITT OLMOS MD ADMIT DATE: 03/01/23/ER Draft Date of Exam:03/01/23 CHEST 1 VIEW, AP/PA ONLY INDICATION: Weakness and decreased appetite. Time of Exam: 8:45 AM Correlation is made with prior chest from 02/18/2023. Heart size is normal. Lungs appear to be fairly clear. No significant infiltrate is detected. There is some minimal density in the left base near the costophrenic angle, similar to prior. Right upper extremity PICC line remains in place. There is no pneumothorax. IMPRESSION: Overall stable chest with perhaps minimal infiltrate or atelectasis in the left base. No other significant abnormality is seen. Dictated on workstation # [id number] Dict: 03/01/23 0918 Trans: 03/01/23 0925 MARY ALICE [id number] Interpreted by: SAMARA AGUILAR MD Electronically signed by: Departure Impression Primary Impression: Dehydration Disposition: 01 HOME, SELF-CARE Condition: Improved Departure-Patient Inst. Decision time for Depature: 11:33 Referrals: ESTER ALLRED MD (PCP/Family) Primary Care Physician Patient Instructions: Dehydration, Adult (DC) Add. Discharge Instructions: Encourage fluids/protein drinks so that she stays well-hydrated and is getting some nutrition. Leave the Mepilex dressing on for 7 days. Make sure the area is cleaned thoroughly and replace a dressing. Continue her daily prescribed medications. A urine culture is pending, we will contact you if she needs antibiotics. If you have any new, emergent concerns, please return to the Emergency Department for re-evaluation. Call her primary care doctor's office on Friday to inquire about having the PICC Line removed. Copy Copies To 1: ESTER ALLRED MD, KATHRYN M MD Mar 01, 2023 08:42
[2023-03-01 08:48] LABS: BASOPHILS # (AUTO) 0.2 10^3/uL (0.0-0.1); BASOPHILS % (AUTO) 1 % (0-10); EOSINOPHILS # (AUTO) 0.1 10^3/uL (0.0-0.3); EOSINOPHILS % (AUTO) 1 % (0-10); HEMATOCRIT 30 % (35-52); HEMOGLOBIN 10.1 g/dL (11.5-16.0); LYMPHOCYTES # (AUTO) 3.9 10^3/uL (1.0-4.0); LYMPHOCYTES % (AUTO) 24 % (12-44); MEAN CORPUSCULAR HEMOGLOBIN 32 pg (25-34); MEAN CORPUSCULAR HGB CONC 33 g/dL (32-36); MEAN CORPUSCULAR VOLUME 96 fL (80-99); MEAN PLATELET VOLUME 10.3 fL (9.0-12.2); MONOCYTES # (AUTO) 2.3 10^3/uL (0.0-1.0); MONOCYTES % (AUTO) 14 % (0-12); NEUTROPHILS # (AUTO) 8.9 10^3/uL (1.8-7.8); NEUTROPHILS % (AUTO) 54 % (42-75); PLATELET COUNT 299 10^3/uL (130-400); WHITE BLOOD COUNT 16.5 10^3/uL (4.3-11.0)
[2023-03-01 08:57] LABS: POTASSIUM 4.3 MMOL/L (3.6-5.0)
[2023-03-01 08:58] LABS: CALCIUM 8.3 MG/DL (8.5-10.1)
[2023-03-01 09:02] LABS: CREATININE SERUM 0.87 MG/DL (0.60-1.30)
[2023-03-01 09:17] LABS: BAND NEUTROPHILS 2 %; NEUTROPHILS % (MANUAL) 54 %
[2023-03-01 09:18] LABS: ANISOCYTOSIS MODERATE; BASOPHILS % (MANUAL) 0 %; EOSINOPHILS % (MANUAL) 1 %; LYMPHOCYTES % (MANUAL) 22 %; METAMYELOCYTES % 6 %; MONOCYTES % (MANUAL) 8 %; MYELOCYTES % 7 %; POLYCHROMASIA SLIGHT
--- NOTE | 2023-03-01 09:27 | Diagnostic Imaging Report ---
INDICATION: Weakness and decreased appetite. Time of Exam: 8:45 AM Correlation is made with prior chest from 02/18/2023. Heart size is normal. Lungs appear to be fairly clear. No significant infiltrate is detected. There is some minimal density in the left base near the costophrenic angle, similar to prior. Right upper extremity PICC line remains in place. There is no pneumothorax. IMPRESSION: Overall stable chest with perhaps minimal infiltrate or atelectasis in the left base. No other significant abnormality is seen. Dictated by: Dictated on workstation # [id number]
[2023-03-01] MEDS ORDERED: NS IV 1000 ML 1,000 ML IV SCH (10:15)
[2023-03-01 11:02] LABS: CLARITY,URINE SL CLOUDY; COLOR,URINE YELLOW; GLUCOSE, URINE (UA) NEGATIVE (NEGATIVE); KETONES,URINE NEGATIVE (NEGATIVE); LEUKOCYTE ESTERASE ,URINE 3+ (NEGATIVE); NITRITE,URINE NEGATIVE (NEGATIVE); PH,URINE 5.5 (5-9); PROTEIN,URINE TRACE (NEGATIVE)
[2023-03-01 11:24] LABS: BACTERIA,URINE MODERATE /HPF; BILIRUBIN,URINE 1+ (NEGATIVE); WBC,URINE 25-50 /HPF; YEAST,URINE LARGE /HPF
[2023-03-01 12:20] VITALS: BP 121/56
== END 2023-03-01 12:20 | disposition home or self-care (01) ==
LOC: EDUNIT# 08:17 → ER 08:18
DX: E86.0 Dehydration (principal); L89.159 Pressure ulcer of sacral region, unspecified stage; D72.829 Elevated white blood cell count, unspecified; Z28.311 Partially vaccinated for COVID-19; Z90.49 Acquired absence of other specified parts of digestive tract
CPT/HCPCS: 36415; 71045; 80048; 81000; 85007; 85027; 87077; 87088; 87186

== ENCOUNTER 2023-03-03 12:27 | Inpatient (IN) | payer OTHER, MEDICARE ==
[2023-03-03] VITALS (10 sets, daily range): BP systolic 85–119; BP diastolic 32–75
[~2023-03-03] VITALS: Ht 157.5 cm; Wt 58.8 kg
[2023-03-03] MEDS ORDERED: NS IV 1000 ML 1,000 ML IV ONE (13:15)
[2023-03-03 13:16] LABS: BASOPHILS # (AUTO) 0.2 10^3/uL (0.0-0.1); BASOPHILS % (AUTO) 1 % (0-10); EOSINOPHILS # (AUTO) 0.2 10^3/uL (0.0-0.3); EOSINOPHILS % (AUTO) 1 % (0-10); HEMATOCRIT 29 % (35-52); HEMOGLOBIN 9.7 g/dL (11.5-16.0); LYMPHOCYTES # (AUTO) 3.8 10^3/uL (1.0-4.0); LYMPHOCYTES % (AUTO) 24 % (12-44); MEAN CORPUSCULAR HEMOGLOBIN 32 pg (25-34); MEAN CORPUSCULAR HGB CONC 33 g/dL (32-36); MEAN CORPUSCULAR VOLUME 97 fL (80-99); MEAN PLATELET VOLUME 10.5 fL (9.0-12.2); MONOCYTES # (AUTO) 2.1 10^3/uL (0.0-1.0); MONOCYTES % (AUTO) 13 % (0-12); NEUTROPHILS # (AUTO) 8.4 10^3/uL (1.8-7.8); NEUTROPHILS % (AUTO) 53 % (42-75); PLATELET COUNT 354 10^3/uL (130-400); WHITE BLOOD COUNT 15.9 10^3/uL (4.3-11.0)
[2023-03-03 13:18] LABS: ALBUMIN 2.1 GM/DL (3.2-4.5); POTASSIUM 3.8 MMOL/L (3.6-5.0)
--- NOTE | 2023-03-03 13:18 | ED General ---
General Chief Complaint: Lower Extremity Stated Complaint: WEAKNESS | LT LEG SWELLING Nursing Triage Note: PT TO ED BY EMS FROM HOME WITH C/O LLE EDEMA. EMS REPORTS PT IS SUPPOSED TO GO TO [facility] TODAY, BUT WANTED THE LLE EVALUATED FIRST. PT C/O LOWER BACK PAIN R/T BED SORES. Source of Information: Patient Exam Limitations: No Limitations History of Present Illness Date Seen by Provider: Mar 03, 2023 Time Seen by Provider: 12:55 Initial Comments Here by EMS from home with report of swollen left leg. She also has chronic back pain secondary to bedsore. She was apparently recently admitted at [facility] and family took her from there. She is going to [facility] and is due to be admitted there today but they needed the leg checked out first. Patient does have significant health decline over the last several months. No report of fever. does report that the patient has markedly decreased p.o. intake as well as activity. She was seen here 2 days ago and had UA done with culture pending. She did have 2 L of IV fluids on that visit per the family Timing/Duration: 2-3 Days Severity: Moderate Associated Systoms: No Chest Pain, No Cough, No Fever/Chills; Weakness, Other (Left leg swelling) Allergies and Home Medications Allergies Coded Allergies: codeine (Verified Allergy, Unknown, 03/23/08) gatifloxacin (Verified Allergy, Unknown, 03/23/08) nitrofurantoin (Verified Allergy, Unknown, 03/23/08) Patient Home Medication List Home Medication List Reviewed: Yes Acetaminophen (Acetaminophen) 500 Mg Tablet, 1,000 MG PO Q6H PRN for PAIN-MILD (1-4) Prescribed by: ANASTACIO KEY on 02/21/23621 Albuterol Sulfate (Ventolin Hfa) 1 Puff Puff, 2 PUFF INH QID PRN for SHORTNESS OF BREATH Prescribed by: ANASTACIO KEY on 02/21/23621 Aspirin (Aspirin) 325 Mg Tablet, 325 MG PO DAILY Prescribed by: ANASTACIO KEY on 02/21/23621 Diltiazem HCl (Diltiazem 24Hr ER) 240 Mg Cap.er.24h, 240 MG PO DAILY@0900 Prescribed by: ANASTACIO KEY on 02/21/23621 Guaifenesin (Mucinex) 600 Mg Tab.er.12h, 1,200 MG PO BID Prescribed by: ANASTACIO KEY on 02/21/23621 Heparin Sodium,Porcine (Heparin Sodium) 5,000 Unit/Ml Vial, 5,000 UNITS SC Q12HR Prescribed by: ANASTACIO KEY on 02/21/23621 Hydroxyzine HCl (Hydroxyzine HCl) 10 Mg Tablet, 10 MG PO TID PRN for ANXIETY Prescribed by: ANASTACIO KEY on 02/21/23621 Lactobacillus Acidophilus/Pect (Acidophilus-Pectin Capsule) 75 Million Cell-100 Mg Capsule, 2 EACH PO DAILY Prescribed by: ANASTACIO KEY on 02/21/23621 Lisinopril (Lisinopril) 10 Mg Tablet, 30 MG PO DAILY@0900 Prescribed by: ANASTACIO KEY on 02/21/23621 Lorazepam (Ativan) 0.5 Mg Tablet, 0.5 MG PO TID PRN for ANXIETY Prescribed by: ANASTACIO KEY on 02/21/23621 Montelukast Sodium (Montelukast Sodium) 10 Mg Tablet, 10 MG PO HS Prescribed by: ANASTACIO KEY on 02/21/23621 Ondansetron (Ondansetron Odt) 4 Mg Tab.rapdis, 4 MG PO Q6H PRN for NAUSEA/VOMITING-1ST LINE Prescribed by: ANASTACIO KEY on 02/21/23621 Pantoprazole Sodium (Pantoprazole Sodium) 40 Mg Tablet.dr, 40 MG PO DAILY Prescribed by: ANASTACIO KEY on 02/21/23621 Sertraline HCl (Sertraline HCl) 50 Mg Tablet, 100 MG PO DAILY Prescribed by: ANASTACIO KEY on 02/21/23621 Trazodone HCl (Trazodone HCl) 50 Mg Tablet, 50 MG PO HS Prescribed by: ANASTACIO KEY on 02/21/23621 Umeclidinium [place] (Incruse Ellipta) 62.5 Mcg/Actuation Blst.w.dev, 0 INH IH DAILY@0800 Prescribed by: ANASTACIO KEY on 02/21/23621 Review of Systems Review of Systems Constitutional: see HPI; No chills, No fever EENTM: no symptoms reported Respiratory: No cough, No short of breath Cardiovascular: no symptoms reported Gastrointestinal: No nausea, No vomiting Musculoskeletal: back pain, muscle pain Psychiatric/Neurological: Weakness, Other (Hard of hearing) Past Tmyrjio-Tqyyef-Tforuz Hx Patient Social History Tobacco Use?: No Use of E-Cig and/or Vaping dev: No Substance use?: No Alcohol Use?: No Pt feels they are or have been: No Immunizations Up To Date Tetanus Booster (TDap): Unknown PED Vaccines UTD: Yes First/Initial COVID19 Vaccinat: YES Second COVID19 Vaccination Alirio: YES Third COVID19 Vaccination Date: YES Seasonal Allergies Seasonal Allergies: Yes Past Medical History Surgery/Hospitalization HX: appy, copd, asthma, htn, svt, gerd, anx/dep, PNEUMONIA Surgeries: Yes Appendectomy Respiratory: Yes Asthma, COPD Currently Using CPAP: No Currently Using BIPAP: No Cardiac: Yes (SVT) 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, Irregular Heartbeat Neurological: No Reproductive Disorders: No Female Reproductive Disorders: Denies 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 Sexually Transmitted Disease: No Genitourinary: No Renal Failure Gastrointestinal: Yes Gastroesophageal Reflux Musculoskeletal: Yes (RIGHT HUMERUS FRACTURE, R FOOT) Arthritis, Fractures Endocrine: No HEENT: No Cancer: No Psychosocial: Yes Anxiety, Depression Integumentary: No Blood Disorders: No Family Medical History Reviewed Nursing Family Hx Dementia 19 MOTHER, , Age:88, Onset:60 years & older FH: CAD (coronary artery disease) 19 FATHER, , Age:64, Onset:60 years & older FH: CHF (congestive heart failure) 19 MOTHER, , Age:88, Onset:60 years & older Myocardial infarction 19 MOTHER, , Age:88, Onset:50's - 60 Heart Disease, Diabetes, 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 Physical Exam Vital Signs Vital Signs - First Documented 03/03/23 12:29 Temp 36.2 Pulse 116 Resp 14 B/P (MAP) 117/68 (84) Pulse Ox 95 O2 Delivery Room Air Capillary Refill : Less Than 3 Seconds Height, Weight, BMI Height: 5'3.00" Weight: 140lbs. 0.0oz. 63.216236dr; 25.00 BMI Method:Stated General Appearance: Mild Distress, Other (Ill-appearing) HEENT: PERRL/EOMI, Pharynx Normal Neck: Non Tender, Supple Respiratory: Lungs Clear, Normal Breath Sounds Cardiovascular: No Murmur, Tachycardia Gastrointestinal: Non Tender, Soft Extremity: Non Tender, Swelling (Left leg swollen versus right leg) Neurologic/Psychiatric: Alert, Other (Hard of hearing and globally weak) Skin: Normal Color, Warm/Dry Focused Exam Lactate Level 03/03/23 14:15: Lactic Acid Level 1.13 Lactic Acid Level Laboratory Tests Test 03/03/23 14:15 Lactic Acid Level 1.13 MMOL/L (0.50-2.00) Progress/Results/Core Measures Suspected Sepsis SIRS Temperature: Pulse: 116 Respiratory Rate: 14 Laboratory Tests 03/03/23 12:34: White Blood Count 15.9H Blood Pressure 117 /68 Mean: 84 03/03/23 14:15: Lactic Acid Level 1.13 Laboratory Tests 03/03/23 12:34: Creatinine 0.72, Platelet Count 354, Total Bilirubin 0.8 Results/Orders Lab Results Laboratory Tests Test 03/03/23 12:34 03/03/23 14:15 Range/Units White Blood Count 15.9 H 4.3-11.0 10^3/uL Red Blood Count 3.01 L 3.80-5.11 10^6/uL Hemoglobin 9.7 L 11.5-16.0 g/dL Hematocrit 29 L 35-52 % Mean Corpuscular Volume 97 80-99 fL Mean Corpuscular Hemoglobin 32 25-34 pg Mean Corpuscular Hemoglobin Concent 33 32-36 g/dL Red Cell Distribution Width 18.4 H 10.0-14.5 % Platelet Count 354 130-400 10^3/uL Mean Platelet Volume 10.5 9.0-12.2 fL Immature Granulocyte % (Auto) 8 % Neutrophils (%) (Auto) 53 42-75 % Lymphocytes (%) (Auto) 24 12-44 % Monocytes (%) (Auto) 13 H 0-12 % Eosinophils (%) (Auto) 1 0-10 % Basophils (%) (Auto) 1 0-10 % Neutrophils # (Auto) 8.4 H 1.8-7.8 10^3/uL Lymphocytes # (Auto) 3.8 1.0-4.0 10^3/uL Monocytes # (Auto) 2.1 H 0.0-1.0 10^3/uL Eosinophils # (Auto) 0.2 0.0-0.3 10^3/uL Basophils # (Auto) 0.2 H 0.0-0.1 10^3/uL Immature Granulocyte # (Auto) 1.3 H 0.0-0.1 10^3/uL Neutrophils % (Manual) 66 % Lymphocytes % (Manual) 14 % Monocytes % (Manual) 10 % Eosinophils % (Manual) 1 % Basophils % (Manual) 0 % Myelocytes % 3 % Band Neutrophils 6 % Anisocytosis SLIGHT Elliptocytes SLIGHT Sodium Level 137 135-145 MMOL/L Potassium Level 3.8 3.6-5.0 MMOL/L Chloride Level 109 H 98-107 MMOL/L Carbon Dioxide Level 20 L 21-32 MMOL/L Anion Gap 8 5-14 MMOL/L Blood Urea Nitrogen 21 H 7-18 MG/DL Creatinine 0.72 0.60-1.30 MG/DL Estimat Glomerular Filtration Rate 86 BUN/Creatinine Ratio 29 Glucose Level 86 70-105 MG/DL Calcium Level 7.7 L 8.5-10.1 MG/DL Corrected Calcium 9.2 8.5-10.1 MG/DL Total Bilirubin 0.8 0.1-1.0 MG/DL Aspartate Amino Transf (AST/SGOT) 27 5-34 U/L Alanine Aminotransferase (ALT/SGPT) 26 0-55 U/L Alkaline Phosphatase 90 40-136 U/L C-Reactive Protein High Sensitivity 7.95 H 0.00-0.50 MG/DL Total Protein 4.4 L 6.4-8.2 GM/DL Albumin 2.1 L 3.2-4.5 GM/DL Lactic Acid Level 1.13 0.50-2.00 MMOL/L My Orders Orders - INDIRA HALEY MD Cbc With Automated Diff (03/03/23 13:06) Comprehensive Metabolic Panel (03/03/23 13:06) Hs C Reactive Protein (03/03/23 13:06) Ed Iv/Invasive Line Start (03/03/23 13:06) Ns Iv 1000 Ml (Sodium Chloride 0.9%) (03/03/23 13:15) Us Venous Lower Ext Lt (03/03/23 13:06) Manual Differential (03/03/23 12:34) Chest 1 View, Ap/Pa Only (03/03/23 14:09) Lactic Acid Analyzer (03/03/23 14:09) Blood Culture (03/03/23 14:09) Fentanyl Inj (Sublimaze Injection) (03/03/23 14:20) Apixaban Tablet (Eliquis Tablet) (03/03/23 14:30) Ct Angio Chest W (R/O Pe) (03/03/23 15:37) Iohexol Injection (Omnipaque 350 Mg/Ml 1 (03/03/23 15:45) Received Contrast (Hold Metformin- Contr (03/03/23 15:45) Ns (Ivpb) (Sodium Chloride 0.9% Ivpb Bag (03/03/23 15:45) Code/Resuscitation (03/03/23 15:43) Ed Admission (Communication) (03/03/23 15:43) Medications Given in ED Current Medications Medications Dose Ordered Sig/Dusty Route Start Time Stop Time Status Last Admin Dose Admin Apixaban 5 mg ONCE ONCE PO 03/03/23 14:30 03/03/23 14:31 DC 03/03/23 14:33 5 MG Iohexol 100 ml ONCE ONCE IV 03/03/23 15:45 03/03/23 15:46 DC 03/03/23 15:54 78 ML Sodium Chloride 100 ml ONCE ONCE IV 03/03/23 15:45 03/03/23 15:46 DC 03/03/23 15:54 80 ML Sodium Chloride 1,000 ml @ 0 mls/hr Q0M ONCE IV 03/03/23 13:15 03/03/23 13:16 DC 03/03/23 13:37 1,000 MLS/HR Vital Signs/I&O 03/03/23 12:29 Temp 36.2 Pulse 116 Resp 14 B/P (MAP) 117/68 (84) Pulse Ox 95 O2 Delivery Room Air Capillary Refill : Less Than 3 Seconds Blood Pressure Mean: 84 Progress Note : Progress Note Seen and evaluated. Patient does have PICC line in place so we will access that. Normal saline 1 L bolus, CBC, CMP and CRP ordered. I did review UA results from 2 days ago which does show yeast growth. We will get ultrasound left leg. Anticipate admission to [facility] re[facility] if patient medically appropriate. Differential diagnosis includes DVT, dehydration, electrolyte abnormality 1405: Ultrasound is complete and does show DVT of the left lower extremity. CBC reviewed and does show elevated white count with bandemia. CMP reviewed and does show grossly normal electrolytes with normal serum creatinine. CRP is elevated at greater than 7. I have added blood cultures and lactic acid as well as chest x-ray. I did discuss the case with Dr. Michael, patient's primary physician. He is advocating for admission if acceptable to the hospitalist team. 1416: I did discuss the case with Dr. Freire, hospitalist on-call. She would like to see how patient does after fluids and await results of chest x-ray and lactic acid before deciding on admission which is reasonable. We will go ahead and initiate Eliquis 5 mg p.o. now. Fentanyl 50 mcg IV ordered for pain and she is normally on hydrocodone 5/325 as needed. All of this was discussed with the who agrees. Monitor patient. 1520: Chest x-ray reviewed by me and I do not see any obvious infiltrate on my interpretation. 1529: Heart rate remains in the 120s. Lactic acid is negative. Blood cultures pending. 1546: Dr. Sanders has been in to see the patient and she accepts patient for admission, observation status to cardiac stepdown. Discussed with patient and family who agree with plan. We will go ahead and get CT angiogram of the chest. 1559: I have reviewed CT angiogram of the chest and do not see any obvious pulmonary embolism. She does have lesion in the right upper lung of unsure etiology on my interpretation. Pending radiology report. 1626: Dr. Alarcon mention of the Dr. Freire who mentioned to me that there is a possibility that there could be clot retrieval. He apparently has talked with Dr. Miller at [facility] he says he does do that procedure. I did verify this with Dr. Alarcon who confirms that it is a procedure that can do if she has proximal occlusive thrombus which she does have. I did talk with the family about potentially pursuing that option. They are not sure the insurance covers there at [facility] in [place] and he would like to continue with the medication treatment currently and he will work with his insurance and see if that is even an option. [facility] does not have beds available at this point although they might be able to figure out a possible way to get the patient over there if the patient and family decided that this something they would like to pursue. I did discuss all of this with Dr. Freire and she will readdress this with the family later. Diagnostic Imaging Diagonstic Imaging: Ultrasound Plain Films/CT/US/NM/MRI: leg Comments NAME: GE MARIE [facility] REC#: [id number] PT STATUS: REG ER : 1945 PHYSICIAN: INDIRA HALEY MD ADMIT DATE: 03/03/23/ER Draft Date of Exam:03/03/23 US VENOUS LOWER EXT LT PROCEDURE: US left lower extremity venous. TECHNIQUE: Multiple real-time grayscale images were obtained over the left lower extremity in various projections. Additional duplex Doppler and color Doppler images were also obtained. INDICATION: Left leg swelling. FINDINGS: Extensive left lower extremity DVT is seen. There appears to be occlusive thrombus extending from the left common femoral vein into the calf. There is also thrombus seen within superficial veins of the greater saphenous vein proximally and the mid lesser saphenous vein. No fluid collection or mass is detected. IMPRESSION: Extensive left lower extremity DVT. Dictated on workstation # [id number] Dict: 03/03/23 1401 Trans: 03/03/23 1403 [id number] Interpreted by: SAMARA AGUILAR MD Electronically signed by: Diagonstic Imaging: Xray Plain Films/CT/US/NM/MRI: chest Comments [facility] [place] NAME: GE MARIE [facility] REC#: [id number] PT STATUS: REG ER : 1945 PHYSICIAN: INDIRA HALEY MD ADMIT DATE: 03/03/23/ER Draft Date of Exam:03/03/23 CHEST 1 VIEW, AP/PA ONLY INDICATION: Left lower extremity edema. COMPARISON: 03/01/2023 FINDINGS: Single frontal radiographic view of the chest was obtained and again demonstrates minimal left basilar airspace disease with blunting of the left lateral costophrenic angle. Right lung is relatively clear. There is no large effusion on the right. No pneumothorax seen on either side. Cardiac silhouette and pulmonary vasculature are within normal limits. Right upper extremity PICC line is seen with tip in the SVC. Osseous structures show no gross acute abnormalities. IMPRESSION: 1. Perhaps small left basilar effusion versus pleural scarring or thickening. Otherwise, unremarkable exam of the chest. Dictated on workstation # [id number] Dict: 03/03/23 1510 Trans: 03/03/23 1517 CV [id number] Interpreted by: EVAN GONZALEZ MD Electronically signed by: Departure Communication (Admissions) Time/Spoke to Admitting Phy: 15:46 Impression Primary Impression: Left leg DVT Qualified Codes: I82.402 - Acute embolism and thrombosis of unspecified deep veins of left lower extremity Additional Impressions: Tachycardia Dehydration Disposition: ADMITTED INPATIENT Condition: Stable Admissions Decision to Admit Reason: Admit from ER (General) Decision to Admit/Date: Mar 03, 2023 Time/Decision to Admit Time: 15:46 Departure-Patient Inst. Referrals: ESTER MICHAEL MD (PCP/Family) Primary Care Physician INDIRA HALEY MD Mar 03, 2023 13:18
[2023-03-03 13:20] LABS: CALCIUM 7.7 MG/DL (8.5-10.1)
[2023-03-03 13:21] LABS: TOTAL PROTEIN 4.4 GM/DL (6.4-8.2)
[2023-03-03 13:22] LABS: BILIRUBIN,TOTAL 0.8 MG/DL (0.1-1.0)
[2023-03-03 13:24] LABS: CREATININE SERUM 0.72 MG/DL (0.60-1.30)
[2023-03-03 13:48] LABS: BAND NEUTROPHILS 6 %; LYMPHOCYTES % (MANUAL) 14 %; MONOCYTES % (MANUAL) 10 %; NEUTROPHILS % (MANUAL) 66 %
[2023-03-03 13:49] LABS: ANISOCYTOSIS SLIGHT; BASOPHILS % (MANUAL) 0 %; ELLIPT/OVALOCYTES SLIGHT; EOSINOPHILS % (MANUAL) 1 %; MYELOCYTES % 3 %
--- NOTE | 2023-03-03 14:04 | Diagnostic Imaging Report ---
PROCEDURE: US left lower extremity venous. TECHNIQUE: Multiple real-time grayscale images were obtained over the left lower extremity in various projections. Additional duplex Doppler and color Doppler images were also obtained. INDICATION: Left leg swelling. FINDINGS: Extensive left lower extremity DVT is seen. There appears to be occlusive thrombus extending from the left common femoral vein into the calf. There is also thrombus seen within superficial veins of the greater saphenous vein proximally and the mid lesser saphenous vein. No fluid collection or mass is detected. IMPRESSION: Extensive left lower extremity DVT. Dictated by: Dictated on workstation # [id number]
[2023-03-03] MEDS ORDERED: fentaNYL INJ 100 MCG/2 ML AMP IVP STA (14:20)
[2023-03-03] MEDS ORDERED: APIXABAN 5 MG (ELIQUIS) TABLET PO ONE (14:30)
--- NOTE | 2023-03-03 15:18 | Diagnostic Imaging Report ---
INDICATION: Left lower extremity edema. COMPARISON: 03/01/2023 FINDINGS: Single frontal radiographic view of the chest was obtained and again demonstrates minimal left basilar airspace disease with blunting of the left lateral costophrenic angle. Right lung is relatively clear. There is no large effusion on the right. No pneumothorax seen on either side. Cardiac silhouette and pulmonary vasculature are within normal limits. Right upper extremity PICC line is seen with tip in the SVC. Osseous structures show no gross acute abnormalities. IMPRESSION: 1. Perhaps small left basilar effusion versus pleural scarring or thickening. Otherwise, unremarkable exam of the chest. Dictated by: Dictated on workstation # [id number]
[2023-03-03] MEDS ORDERED: IOHEXOL 350 MG/ML 100 ML (OMNIPAQUE 350) VIAL IV ONE (15:45)
[2023-03-03] MEDS ORDERED: HOLD METFORMIN - RECEIVED CONTRAST 20 ML VIAL IV SCH (15:45)
[2023-03-03] MEDS ORDERED: NS 100 ML (IVPB) BAG IV ONE (15:45)
--- NOTE | 2023-03-03 15:57 | History & Physical-Hospitalist ---
History of Present Illness HPI/Chief Complaint Pt is a 77yoCF with a PMH of SVT, HTN, ashtma, anxiety who presented to the ER due to weakness and leg swelling. She was recently admitted here at the end of December and was transferred to [place] for respiratory failure. She returned to Inpatient Rehab here and was discharged to [facility] for skilled placement. She left there roughly 1 week ago and went to her daughter's home. She was in the ER 2 days ago for weakness and was supposed to admit to [facility] today but had leg swelling and further weakness so decided to seek evaluation. She was found to have a left lower extremity DVT and was quite tachycardiac (120s). Despite IVF she continued to feel quite poorly and she was admitted for observation. Source: patient Date Seen 03/03/23 Time Seen by a Provider: 15:51 Attending Physician Tim Michael MD PCP Admitting Physician: Attending Physician: Referring Physician Date of Admission Home Medications & Allergies Home Medications Reviewed patient Home Medication Reconciliation performed by pharmacy medication reconciliations hvac controls technician and/or nursing. Patients Allergies have been reviewed. Allergies Allergies Coded Allergies codeine (Verified Allergy, Unknown, 03/23/08) gatifloxacin (Verified Allergy, Unknown, 03/23/08) nitrofurantoin (Verified Allergy, Unknown, 03/23/08) Past Tyeslkb-Lxlgkp-Qlluqa Hx Patient Social History Tobacco Use?: No Use of E-Cig and/or Vaping dev: No Substance use?: No Alcohol Use?: No Pt feels they are or have been: No Immunizations Up To Date First/Initial COVID19 Vaccinat: YES Second COVID19 Vaccination Alirio: YES Tetanus Booster (TDap): Unknown PED Vaccines UTD: Yes Seasonal Allergies Seasonal Allergies: Yes Current Status Advance Directives: No Communicates: Verbally Primary Language: Marshallese Preferred Spoken Language: Marshallese Is interpretation needed?: No Sensory deficits: Hearing impairment Past Medical History Surgeries: Appendectomy Asthma, COPD Currently Using CPAP: No Currently Using BIPAP: No 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, Irregular Heartbeat 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 Sexually Transmitted Disease: No Renal Failure Gastroesophageal Reflux Arthritis, Fractures Anxiety, Depression Blood Disorders: No Family Medical History Reviewed Nursing Family Hx Dementia 19 MOTHER, , Age:88, Onset:60 years & older FH: CAD (coronary artery disease) 19 FATHER, , Age:64, Onset:60 years & older FH: CHF (congestive heart failure) 19 MOTHER, , Age:88, Onset:60 years & older Myocardial infarction 19 MOTHER, , Age:88, Onset:50's - 60 No Family History of: AIDS Abdominal aortic aneurysm Saqib's disease Alcoholism Alzheimer's disease Aphasia Arthritis Asthma Cancer of mouth Cardiovascular disease Cataracts Colon cancer Completed stroke Congenital disease Congenital heart disease Coronary thrombosis Cystic fibrosis Deafness or hearing loss Diabetes mellitus Drug abuse Dysphasia Fibrocystic disease of breast Gastroenteritis Glaucoma Headache disorder Hypercholesterolemia 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 Infertility Kidney disease Neoplasm Not obtainable due to adoption Osteoporosis Parkinson's disease Prostate cancer Psychosocial problem Respiratory disorder Seizure disorder Severe allergy Thyroid disease Tuberculosis Visual disorder Heart Disease, Diabetes, 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 Review of Systems Constitutional: see HPI Physical Exam Physical Exam Vital Signs Vital Signs - First Documented 03/03/23 03/03/23 03/03/23 12:29 18:57 20:00 Temp 36.2 Pulse 116 Resp 14 B/P (MAP) 117/68 (84) Pulse Ox 95 O2 Delivery Room Air O2 Flow Rate 2.00 FiO2 21 Capillary Refill : Less Than 3 Seconds Height, Weight, BMI Height: 5'3.00" Weight: 140lbs. 0.0oz. 63.626739wa; 25.00 BMI Method:Stated General Appearance: Chronically ill, Mild Distress Respiratory: Lungs Clear, No Accessory Muscle Use Cardiovascular: No Murmur, Tachycardia Gastrointestinal: Normal Bowel Sounds, Non Tender, Soft Extremity: Swelling (left lower extremity) Neurologic/Psychiatric: Alert, Oriented x3, Depressed Affect Skin: Pallor Results Results/Procedures Labs Laboratory Tests 03/03/23 12:34 03/04/23 04:24 Patient resulted labs reviewed. Imaging: Reviewed Imaging Report Assessment/Plan Admission Diagnosis Left leg DVT and weakness Admission Status: Observation Assessment and Plan Left leg DVT and weakness Tachycardia h/o pSVT doppler confirms DVT Start on Eliquis Telemetry Cardiology consulted, appreciate recs CTA done to evaluate for PE due to tachycardia Reviewed images- right upper lung mass lesion- reviewed images from December and it was not present- await formal radiology read Asthma On room air and satting well HTN Continue home meds as able Yeast in urine UA from 2 days ago concerning for UTI but only grew yeast Came fro Diagnosis/Problems Diagnosis/Problems (1) Left leg DVT Qualifiers: Affected thrombotic vein of extremity: unspecified vein of extremity Chronicity: acute Qualified Codes: I82.402 - Acute embolism and thrombosis of unspecified deep veins of left lower extremity (2) Dehydration (3) Tachycardia (4) Cavitary lesion of lung (5) HTN (hypertension) Status: Acute (6) Supraventricular tachycardia Status: Acute (7) Anxiety Status: Acute (8) UTI (urinary tract infection) Status: Acute ARSLAN COHEN MD Mar 03, 2023 15:57
--- NOTE | 2023-03-03 16:08 | Diagnostic Imaging Report ---
Technique: CTA of the chest was performed with contrast bolus timing optimized for evaluation of the pulmonary arteries. 3-D reformats were constructed and reviewed. Dose reduction techniques were utilized. Reason for exam: Tachycardia. Chest pain. Comparison: Chest radiograph performed earlier the same date. CTA chest on 01/10/2023. Findings: This helical CT pulmonary angiogram is diagnostic to the subsegmental level branches of the pulmonary artery. There is a small amount of pulmonary emboli involving the subsegmental pulmonary arteries of the right lung base. No CT evidence of right heart strain. The heart size is normal. There is no pericardial effusion. There is no axillary, mediastinal, or hilar adenopathy. Solid nodule with central cavitation is seen in the right upper lobe measuring 2.5 x 1.9 cm. A 2nd solid nodule seen in the left lung apex measuring 2.1 x 1.0 cm. Consolidative opacities are seen in the left lung base. No central endobronchial obstructing lesion. No pleural effusion or pneumothorax. Osseous structures appear normal. Cholelithiasis is seen within a distended gallbladder. There is prominence of the collecting system bilaterally. IMPRESSION: 1. Small burden of pulmonary emboli involving a subsegmental pulmonary artery in the right lung base. No evidence of right heart strain. 2. Development of solid nodules in the right upper and left upper lobes. The nodule in the right upper lobe demonstrate central cavitation. These findings could represent sites of infection/inflammation. Alternatively, septic emboli could have this appearance. Recommend continued followup as indicated. 3. Consolidative opacities in the left lung base, most suggestive of atelectasis. 4. Cholelithiasis within a distended gallbladder. 5. Partially visualized bilateral hydroureteronephrosis. Dictated by: Dictated on workstation # [id number]
[2023-03-03] MEDS ORDERED: CEFEPIME INJECTION 1,000 MG in NS (IVPB) 50 ML IV ONE (16:15)
[2023-03-03] MEDS ORDERED: cefTRIAXone IV/IM 1,000 MG in NS (IVPB) 50 ML IV ONE (16:15)
[2023-03-03] MEDS ORDERED: ONDANSETRON 4 MG/2 ML (SDV) Z0FRAN IV PRN (17:45)
[2023-03-03] MEDS ORDERED: MELATONIN 3 MG TABLET PO PRN (17:45)
[2023-03-03] MEDS ORDERED: APIXABAN 5 MG (ELIQUIS) TABLET PO NR (18:15)
[2023-03-03] MEDS ORDERED: hydrOXYzine (ATARAX) 10 MG TAB PO PRN (19:15)
[2023-03-03] MEDS: inSUlin ASPART (NovoLOG) 1 UNIT/0.01 ML (CHARGE PER UNIT) SC SCH (20:29)
[2023-03-03] MEDS ORDERED: MONTELUKAST 10 MG (SINGULAIR) TAB PO SCH (21:00)
[2023-03-03] MEDS ORDERED: RT-LEVALBUTEROL (XOPENEX) 1.25 MG/3 ML NEB NON-FORMULARY INH SCH (21:00)
[2023-03-03] MEDS ORDERED: traZODone 50 MG (DESYREL) TAB PO SCH (21:00)
[2023-03-03] MEDS ORDERED: meTOprolol 5 MG/5 ML (LOPRESSOR) VIAL IV ONE (21:30)
[2023-03-03] MEDS ORDERED: meTOprolol 5 MG/5 ML (LOPRESSOR) VIAL ONE (21:31)
[2023-03-04] MEDS: CEFEPIME INJECTION 1,000 MG in NS (IVPB) 50 ML IV SCH ×3 (01:18→17:39)
[2023-03-04] MEDS: LORazepam 0.5 MG (ATIVAN) TABLET PO PRN ×2 (01:56→10:12)
[2023-03-04 03:24] VITALS: BP 96/48
[2023-03-04 04:30] LABS: HEMATOCRIT 28 % (35-52); MEAN CORPUSCULAR HEMOGLOBIN 31 pg (25-34); MEAN CORPUSCULAR HGB CONC 32 g/dL (32-36); MEAN CORPUSCULAR VOLUME 97 fL (80-99); PLATELET COUNT 324 10^3/uL (130-400); WHITE BLOOD COUNT 11.9 10^3/uL (4.3-11.0)
[2023-03-04 04:41] LABS: POTASSIUM 3.8 MMOL/L (3.6-5.0)
[2023-03-04 04:42] LABS: CALCIUM 7.7 MG/DL (8.5-10.1)
[2023-03-04 04:46] LABS: CREATININE SERUM 0.67 MG/DL (0.60-1.30)
[2023-03-04] MEDS: inSUlin ASPART (NovoLOG) 1 UNIT/0.01 ML (CHARGE PER UNIT) SC SCH ×3 (06:14→16:00)
[2023-03-04] MEDS ORDERED: meTOprolol 5 MG/5 ML (LOPRESSOR) VIAL IV PRN (06:30)
[2023-03-04] MEDS ORDERED: meTOprolol 5 MG/5 ML (LOPRESSOR) VIAL ONE (06:33)
[2023-03-04] MEDS: meTOprolol 5 MG/5 ML (LOPRESSOR) VIAL IV PRN ×2 (06:37→11:58)
[2023-03-04] MEDS ORDERED: APIXABAN 5 MG (ELIQUIS) TABLET PO SCH (07:00)
[2023-03-04 08:03] VITALS: BP 97/51
--- NOTE | 2023-03-04 08:39 | Physical Therapy Evaluation ---
PT Evaluation-General Medical Diagnosis Admission Date Mar 03, 2023 at 17:31 Medical Diagnosis: dehydration/tachycardia/left LE DVT Onset Date: Mar 03, 2023 Therapy Diagnosis Therapy Diagnosis: debility/weakness Height/Weight Height (Feet): 5 Height (Inches): 3.00 Weight (Pounds): 140 Weight (Ounces): 0.0 Precautions Precautions/Isolations: Fall Prevention, Standard Precautions Referral Physician: Mouna Reason for Referral: Evaluation/Treatment Medical History Pertinent Medical History: COPD, HTN, Renal Insufficiency Additional Medical History patient spent 1 week in inpatient rehab then transferred to [facility] due to inability to participate with therapy Current History EMS secondary to left LE edema (patient was to be admitted to [facility] 03/03/23 due to inability to care for self) Reviewed History: Yes Prior Prior Level of Function SCALE: Activities may be completed with or without assistive devices. 0-Zvpvvwqxvf-rrhhzbv completes the activity by him/herself with no assistance from a helper. 5-Set-up or Clean-up Assistance-helper sets up or cleans up; patient completes activity. [place] assists only prior to or following the activity. 4-Supervision or Touching Assistance-helper provides verbal cues and/or touching/steadying and/or contact guard assistance as patient completes activity. Assistance may be provided throughout the activity or intermittently. 3-Partial/Moderate Assistance-helper does LESS THAN HALF the effort. Cordova lifts, holds or supports trunk or limbs, but provides less than half the effort. 2-Substantial/Maximal Assistance-helper does MORE THAN HALF the effort. [place] lifts or holds trunk or limbs and provides more than half the effort. 5-Vbafcpsxq-whhmzs does ALL the effort. Patient does none of the effort to complete the activity. Or, the assistance of 2 or more helpers is required for the patient to complete the activity. If activity was not attempted, code reason: 7-Patient Refused. 9-Not Applicable-not attempted and the patient did not perform the activity before the current illness, exacerbation or injury. 10-Not Attempted due to Environmental Limitations-(lack of equipment, weather restraints, etc.). 88-Not Attempted due to Medical Conditions or Safety Concerns. Bed Mobility: 1 Transfers (B,C,W/C): 1 Gait: 9 per spouse, patient has been bed bound x 7 weeks PT Evaluation-Current Subjective Patient's family agrees to PT. Objective Patient Orientation: Confused Attachments: Diane Catheter ROM/Strength ROM Lower Extremities bilateral LE WFL Strength Lower Extremities 2/5 grossly bilateral LE (unable to assess due to patient's inability to follow direction) Integumentary/Posture Integumentary refer to nursing notes Bladder Incontinence: Diane Cath Posture WFL Neuromuscular (Tone, Coordination, Reflexes) diminished with all due to weakness and inactivity Sensory Vision: Wears Glasses Hearing: Impaired Transfers Roll Left to Right (QC): 1 (x 2) Sit to Lying (QC): 1 (x 1) Lying to Sitting/Side of Bed(Q: 1 (x 2) Sit to Stand (QC): 1 (x 2) Chair/Hwj-ve-Fwncn Xfer(QC): 1 (x 2) Gait Does the Patient Walk?: No and Walking Goal NOT indicated Balance Sitting Static: Poor Sitting Dynamic: Poor Assessment/Needs Patient will benefit from skilled PT to address functional strength and mobility to improve current LOF. Patient, historically, is noncompliant with participate with skilled therapy per report and family. Rehab Potential: Poor PT Fpc Goals Museum Tour Guide Goals PT Museum Tour Guide Goals Time Frame: Mar 22, 2023 Roll Left & Right (QC): 3 Sit to Lying (QC): 3 Lying-Sitting on Side/Bed(QC): 3 Sit to Stand (QC): 2 Chair/Hus-bm-Mbqko Xfer(QC): 2 PT Plan Problem List Problem List: Activity Tolerance, Functional Strength, Safety, Balance, Transfer, Bed Mobility Treatment/Plan Treatment Plan: Continue Plan of Care Treatment Plan: Bed Mobility, Education, Functional Activity Geraldo, Functional Strength, Safety, Therapeutic Exercise, Transfers Treatment Duration: Mar 22, 2023 Frequency: 5 times per week Estimated Hrs Per Day: .25 hour per day Time Time In: 815 Time Out: 832 DATE: Mar 04, 2023 Total Billed Treatment Time: 17 Total Billed Treatment 1 visit [facility] 17 min ARYAN WELLS PT Mar 04, 2023 08:39
--- NOTE | 2023-03-04 08:40 | Occupational Therapy Eval ---
OT Evaluation-General/PLF Medical Diagnosis Admission Date Mar 03, 2023 at 17:31 Medical Diagnosis: tachycardia, DEHYDRATION, dvt Onset Date: Mar 03, 2023 Therapy Diagnosis Therapy Diagnosis: WEAKNESS Height/Weight Height (Feet): 5 Height (Inches): 3.00 Weight (Pounds): 140 Weight (Ounces): 0.0 Precautions Precautions/Isolations: Fall Prevention, Standard Precautions Safety Interventions: Bed Exit Alarm Weight Bear Status Patient does not weight bear with transfers Referral Referral Reason: Evaluation/Treatment Medical History Additional Medical History DC from ARU February 21 2023 to [facility] at max/total assist for LB ADLS and transfers and mod assist for UB grooming, failure to participate in ARU sessions. November 2022 patient is reported to ambulate in ED. Social History Home: Single Level Current Living Status: Other Family ADL-Prior Level of Function SCALE: Activities may be completed with or without assistive devices. 5-Rokgtvojbr-qwdlhfb completes the activity by him/herself with no assistance from a helper. 5-Set-up or Clean-up Assistance-helper sets up or cleans up; patient completes activity. Kite assists only prior to or following the activity. 4-Supervision or Touching Assistance-helper provides verbal cues and/or touching/steadying and/or contact guard assistance as patient completes activity. Assistance may be provided throughout the activity or intermittently. 3-Partial/Moderate Assistance-helper does LESS THAN HALF the effort. Kite lifts, holds or supports trunk or limbs, but provides less than half the effort. 2-Substantial/Maximal Assistance-helper does MORE THAN HALF the effort. Kite lifts or holds trunk or limbs and provides more than half the effort. 2-Cmeegnqho-emuvqt does ALL the effort. Patient does none of the effort to complete the activity. Or, the assistance of 2 or more helpers is required for the patient to complete the activity. If activity was not attempted, code reason: 7-Patient Refused. 9-Not Applicable-not attempted and the patient did not perform the activity before the current illness, exacerbation or injury. 10-Not Attempted due to Environmental Limitations-(lack of equipment, weather restraints, etc.). 88-Not Attempted due to Medical Conditions or Safety Concerns. Self Care: Dependent Functional Cognition: Dependent Drive Self: No OT Current Status Subjective Patient family present and steps pout of room to allow space for therapy evaluation and reduced distraction Mental Status/Objective Attachments: Diane Catheter, Oxygen, Telemetry Current Upper Extremity ROM Spontaneous reach and push of BUEs, resistive and and does not follow commands Upper Extremity Coordination Random pushing phone button ADL-Treatment Eating (QC): 3 Oral Hygiene (QC): 2 Shower/Bathe Self (QC): 1 Upper Body Dressing (QC): 1 (refuses to sit unsupported) Lower Body Dressing (QC): 1 (2 person, patietn does not bear WT to LEs, refused standing) On/Off Footwear (QC): 1 Toileting Hygiene (QC): 1 Education OT Patient Education: Correct positioning, Instructions to caregiver, Modified ADL techniques, Progress toward Goal/Update tx plan, Purpose of tx/functional activities, Reviewed precautions, Rehab process, Safety issues, Transfer techniques Teaching Recipient: Patient, Family Teaching Methods: Demonstration, Discussion Response to Teaching: Unable to Comprehend (patient ) OT Chcf Goals Chcf Goals Eating (QC): 4 Oral Hygiene (QC): 4 Toileting Hygiene (QC): 2 Shower/Bathe Self (QC): 2 Upper Body Dressing (QC): 4 Lower Body Dressing (QC): 2 On/Off Footwear (QC): 2 1=Demonstrate adherence to instructed precautions during ADL tasks. 2=Patient will verbalize/demonstrate understanding of assistive devices/modifications for ADL. 3=Patient will improve strength/tolerance for activity to enable patient to perform ADL's. OT Education/Plan Problem List/Assessment Assessment: Decreased Activ Tolerance, Decreased Safety Aware, Decreased UE Strength, Dependent Transfers, Impaired Bed Mobility, Impaired Cognition, Impaired Coordination, Impaired Funct Balance, Impaired Self-Care Skills Discharge Recommendations Plan/Recommendations: Continue POC Therapy Discharge Recommendati: 24 Hour Supervision, Other, See Comments (SNF/LTC/24 hour) Treatment Plan/Plan of Care Treatment,Training & Education: Yes Patient would benefit from OT for education, treatment and training to promote independence in ADL's, mobility, safety and/or upper extremity function for ADL's. Plan of Care: ADL Retraining, Caregiver Training, Cognitive Retraining, Concurrent Therapy, Functional Mobility, Group Exercise/Act as Ind, UE Funct Exercise/Act, UE Neuromus Re-Ed/Coord, Visual/Perceptual Retrain Treatment Duration: Mar 08, 2023 Frequency: 3 times per week (3-5 times per week) Rehab Potential: Poor Time Start Time: 08:10 Stop Time: 08:30 DATE: Mar 04, 2023 Total Time Billed (hr/min): 20 Billed Treatment Time EVM 20 min RITA VIEIRA OT Mar 04, 2023 08:40
[2023-03-04] MEDS ORDERED: PANTOPRAZOLE 40 MG (PROTONIX) TAB PO SCH (09:00)
[2023-03-04 09:05] LABS: ABG BASE EXCESS -6.5 MMOL/L (-2.5-2.5); ABG OXYGEN SATURATION 99 % (94-100); ABG PCO2 30 MMHG (35-45); ABG PH 7.39 (7.37-7.43); ABG PO2 95 MMHG (79-93); ABG TCO2 18.6 MMOL/L (21.0-31.0)
[2023-03-04 09:12] LABS: ALLENS TEST YES-POS; INSPIRED O2 2 L; PATIENT TEMP 36.6; VENTILATOR NO
--- NOTE | 2023-03-04 09:22 | Consultation-Cardiology ---
HPI-Cardiology Cardiology Consultation Date of Consultation 03/04/23 Date of Admission Time Seen by Provider: 09:12 Indication: Shortness of breath HPI 79-year-old lady, admitted with acute DVT. She has extensive history. She was agitated and combative. Did not provide a full history, history was obtained from her family and by reviewing her records. Her condition started in December 2022 where she was admitted with shortness of breath, acute exacerbation of COPD. Then UTI. Patient was transferred to [facility] and she was hospitalized for about a month. She had pneumonia and sepsis. After prolonged hospitalization she was sent to acute rehab, was unable to perform 3 hours of physical therapy and rehab subsequently she was sent to [facility]. Family discharge her and kept her at home, patient was seen in the emergency room for dehydration last week. Then she has worsening pedal edema dyspnea Underwent ultrasound which showed extensive left lower extremity thrombosis. Had a CT scan showing pulmonary embolism and questionable cavitary lesion. Home Medications & Allergies Allergies: Coded Allergies: codeine (Verified Allergy, Unknown, 03/23/08) gatifloxacin (Verified Allergy, Unknown, 03/23/08) nitrofurantoin (Verified Allergy, Unknown, 03/23/08) Home Medication List Reviewed: Yes LEJ-Unzlme-Wjdeqa Hx Patient Social History Marital Status: Employed/Student: retired Smoking Status: Former Smoker Former smoker/When Quit: Jul 04, 1983 2nd Hand Smoke Exposure: Yes Recent Hopitalizations: No Alcohol Use?: No Immunizations Up To Date Tetanus Booster (TDap): Unknown Past Medical History Discussed below Family Medical History Significant Family History: Heart Disease, Diabetes, 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 Family History: Dementia 19 MOTHER, , Age:88, Onset:60 years & older FH: CAD (coronary artery disease) 19 FATHER, , Age:64, Onset:60 years & older FH: CHF (congestive heart failure) 19 MOTHER, , Age:88, Onset:60 years & older Myocardial infarction 19 MOTHER, , Age:88, Onset:50's - 60 No Family History of: AIDS Abdominal aortic aneurysm Saqib's disease Alcoholism Alzheimer's disease Aphasia Arthritis Asthma Cancer of mouth Cardiovascular disease Cataracts Colon cancer Completed stroke Congenital disease Congenital heart disease Coronary thrombosis Cystic fibrosis Deafness or hearing loss Diabetes mellitus Drug abuse Dysphasia Fibrocystic disease of breast Gastroenteritis Glaucoma Headache disorder Hypercholesterolemia 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 Infertility Kidney disease Neoplasm Not obtainable due to adoption Osteoporosis Parkinson's disease Prostate cancer Psychosocial problem Respiratory disorder Seizure disorder Severe allergy Thyroid disease Tuberculosis Visual disorder Review of Systems-General Review of Systems Constitutional: see HPI; No chills, No fever; malaise, weakness EENTM: no symptoms reported Respiratory: No cough; dyspnea on exertion, short of breath Cardiovascular: no symptoms reported, see HPI, edema Gastrointestinal: see HPI; No nausea, No vomiting Genitourinary: see HPI Musculoskeletal: see HPI, back pain, muscle pain Skin: see HPI Psychiatric/Neurological: Weakness, Other (Hard of hearing) Reviewed Test Results Reviewed Test Results Lab Laboratory Tests Test 03/03/23 12:34 03/03/23 14:15 03/03/23 20:29 03/03/23 23:57 Range/Units White Blood Count 15.9 H 4.3-11.0 10^3/uL Red Blood Count 3.01 L 3.80-5.11 10^6/uL Hemoglobin 9.7 L 11.5-16.0 g/dL Hematocrit 29 L 35-52 % Mean Corpuscular Volume 97 80-99 fL Mean Corpuscular Hemoglobin 32 25-34 pg Mean Corpuscular Hemoglobin Concent 33 32-36 g/dL Red Cell Distribution Width 18.4 H 10.0-14.5 % Platelet Count 354 130-400 10^3/uL Mean Platelet Volume 10.5 9.0-12.2 fL Immature Granulocyte % (Auto) 8 % Neutrophils (%) (Auto) 53 42-75 % Lymphocytes (%) (Auto) 24 12-44 % Monocytes (%) (Auto) 13 H 0-12 % Eosinophils (%) (Auto) 1 0-10 % Basophils (%) (Auto) 1 0-10 % Neutrophils # (Auto) 8.4 H 1.8-7.8 10^3/uL Lymphocytes # (Auto) 3.8 1.0-4.0 10^3/uL Monocytes # (Auto) 2.1 H 0.0-1.0 10^3/uL Eosinophils # (Auto) 0.2 0.0-0.3 10^3/uL Basophils # (Auto) 0.2 H 0.0-0.1 10^3/uL Immature Granulocyte # (Auto) 1.3 H 0.0-0.1 10^3/uL Neutrophils % (Manual) 66 % Lymphocytes % (Manual) 14 % Monocytes % (Manual) 10 % Eosinophils % (Manual) 1 % Basophils % (Manual) 0 % Myelocytes % 3 % Band Neutrophils 6 % Anisocytosis SLIGHT Elliptocytes SLIGHT Sodium Level 137 135-145 MMOL/L Potassium Level 3.8 3.6-5.0 MMOL/L Chloride Level 109 H 98-107 MMOL/L Carbon Dioxide Level 20 L 21-32 MMOL/L Anion Gap 8 5-14 MMOL/L Blood Urea Nitrogen 21 H 7-18 MG/DL Creatinine 0.72 0.60-1.30 MG/DL Estimat Glomerular Filtration Rate 86 BUN/Creatinine Ratio 29 Glucose Level 86 70-105 MG/DL Calcium Level 7.7 L 8.5-10.1 MG/DL Corrected Calcium 9.2 8.5-10.1 MG/DL Total Bilirubin 0.8 0.1-1.0 MG/DL Aspartate Amino Transf (AST/SGOT) 27 5-34 U/L Alanine Aminotransferase (ALT/SGPT) 26 0-55 U/L Alkaline Phosphatase 90 40-136 U/L C-Reactive Protein High Sensitivity 7.95 H 0.00-0.50 MG/DL Total Protein 4.4 L 6.4-8.2 GM/DL Albumin 2.1 L 3.2-4.5 GM/DL Lactic Acid Level 1.13 0.50-2.00 MMOL/L Glucometer 72 72 70-110 MG/DL Test 03/04/23 04:24 03/04/23 08:55 Range/Units White Blood Count 11.9 H 4.3-11.0 10^3/uL Red Blood Count 2.87 L 3.80-5.11 10^6/uL Hemoglobin 9.0 L 11.5-16.0 g/dL Hematocrit 28 L 35-52 % Mean Corpuscular Volume 97 80-99 fL Mean Corpuscular Hemoglobin 31 25-34 pg Mean Corpuscular Hemoglobin Concent 32 32-36 g/dL Red Cell Distribution Width 18.1 H 10.0-14.5 % Platelet Count 324 130-400 10^3/uL Mean Platelet Volume 10.0 9.0-12.2 fL Sodium Level 137 135-145 MMOL/L Potassium Level 3.8 3.6-5.0 MMOL/L Chloride Level 110 H 98-107 MMOL/L Carbon Dioxide Level 16 L 21-32 MMOL/L Anion Gap 11 5-14 MMOL/L Blood Urea Nitrogen 21 H 7-18 MG/DL Creatinine 0.67 0.60-1.30 MG/DL Estimat Glomerular Filtration Rate 90 BUN/Creatinine Ratio 31 Glucose Level 73 70-105 MG/DL Calcium Level 7.7 L 8.5-10.1 MG/DL Blood Gas Puncture Site LT RAD Blood Gas Patient Temperature 36.6 Arterial Blood pH 7.39 7.37-7.43 Arterial Blood Partial Pressure CO2 30 L 35-45 MMHG Arterial Blood Partial Pressure O2 95 H 79-93 MMHG Arterial Blood HCO3 18 L 23-27 MMOL/L Arterial Blood Total CO2 18.6 L 21.0-31.0 MMOL/L Arterial Blood Oxygen Saturation 99 94-100 % Arterial Blood Base Excess -6.5 L -2.5-2.5 MMOL/L Elvis Test YES-POS Blood Gas Ventilator Setting NO Blood Gas Inspired Oxygen 2 L Physical Exam Physical Exam Vital Signs Vital Signs - First Documented 03/03/23 03/03/23 03/03/23 12:29 18:57 20:00 Temp 36.2 Pulse 116 Resp 14 B/P (MAP) 117/68 (84) Pulse Ox 95 O2 Delivery Room Air O2 Flow Rate 2.00 FiO2 21 Capillary Refill : Less Than 3 Seconds Height, Weight, BMI Height: 5'3.00" Weight: 140lbs. 0.0oz. [id number]; 28.21 BMI Method:Stated General Appearance: Mild Distress, Moderate Distress, Other (Ill-appearing) Eyes: Bilateral Eye Normal Inspection, Bilateral Eye PERRL, Bilateral Eye EOMI HEENT: PERRL/EOMI, Pharynx Normal Neck: Non Tender, Supple Respiratory: Lungs Clear, Normal Breath Sounds Cardiovascular: No Murmur, Tachycardia Gastrointestinal: Non Tender, Soft Back: Normal Inspection, No CVA Tenderness, No Vertebral Tenderness Extremity: Non Tender, Pedal Edema, Swelling (Left leg swollen versus right leg) Neurologic/Psychiatric: Alert, Other (Hard of hearing and globally weak) Skin: Normal Color, Warm/Dry Lymphatic: No Adenopathy A/P-Cardiology Admission Diagnosis Acute DVT, acute PE Hypoxemia Change in mental status Tachycardia Assessment/Plan Acute DVT/PE. Probably secondary to prolonged immobility with multiple hospitalization. Patient was admitted and started on aggressive anticoagulation Recommend transferring to a tertiary care center for thrombectomy. I had a long discussion with the family and recommended the transfer Status post multiple hospitalization for pneumonia, respiratory failure, UTI and dehydration over the past 2 months Was in acute rehab then in a [facility] and was transferred to the family care last week. History of reentry tachycardia. Currently stable Change in mental status, agitation, confusion secondary to hypoxemia History of back pain Bronchial asthma Recurrent UTI YAHIR THOMAS MD Mar 04, 2023 09:22
--- NOTE | 2023-03-04 11:12 | Discharge Summary ---
Diagnosis/Chief Complaint Date of Admission Mar 03, 2023 at 17:31 Date of Discharge Discharge Date: Mar 04, 2023 Admission Diagnosis Left leg DVT and weakness Primary Care Tim Michael MD Discharge Diagnosis (1) Left leg DVT (2) Dehydration (3) Tachycardia (4) Cavitary lesion of lung (5) HTN (hypertension) Status: Acute (6) Supraventricular tachycardia Status: Acute (7) Anxiety Status: Acute (8) UTI (urinary tract infection) Status: Acute Discharge Summary Discharge Physical Exam Allergies: Coded Allergies: codeine (Verified Allergy, Unknown, 03/23/08) gatifloxacin (Verified Allergy, Unknown, 03/23/08) nitrofurantoin (Verified Allergy, Unknown, 03/23/08) Vitals & I&Os Vital Signs Date Time Temp Pulse Resp B/P (MAP) Pulse Ox O2 Delivery O2 Flow Rate FiO2 03/04/23 09:02 96 Nasal Cannula 2.00 03/04/23 08:03 36.6 88 16 97/51 (66) 03/03/23 18:57 21 Hospital Course Labs (last 24 hrs) Laboratory Tests 03/03/23 12:34: White Blood Count 15.9H, Red Blood Count 3.01L, Hemoglobin 9.7L, Hematocrit 29L, Mean Corpuscular Volume 97, Mean Corpuscular Hemoglobin 32, Mean Corpuscular Hemoglobin Concent 33, Red Cell Distribution Width 18.4H, Platelet Count 354, Mean Platelet Volume 10.5, Immature Granulocyte % (Auto) 8, Neutrophils (%) (Auto) 53, Lymphocytes (%) (Auto) 24, Monocytes (%) (Auto) 13H, Eosinophils (%) (Auto) 1, Basophils (%) (Auto) 1, Neutrophils # (Auto) 8.4H, Lymphocytes # (Auto) 3.8, Monocytes # (Auto) 2.1H, Eosinophils # (Auto) 0.2, Basophils # (Auto) 0.2H, Immature Granulocyte # (Auto) 1.3H, Neutrophils % (Manual) 66, Lymphocytes % (Manual) 14, Monocytes % (Manual) 10, Eosinophils % (Manual) 1, Basophils % (Manual) 0, Myelocytes % 3, Band Neutrophils 6, Anisocytosis SLIGHT, Elliptocytes SLIGHT, Sodium Level 137, Potassium Level 3.8, Chloride Level 109H, Carbon Dioxide Level 20L, Anion Gap 8, Blood Urea Nitrogen 21H, Creatinine 0.72, Estimat Glomerular Filtration Rate 86, BUN/Creatinine Ratio 29, Glucose Level 86, Calcium Level 7.7L, Corrected Calcium 9.2, Total Bilirubin 0.8, Aspartate Amino Transf (AST/SGOT) 27, Alanine Aminotransferase (ALT/SGPT) 26, Alkaline Phosphatase 90, C-Reactive Protein High Sensitivity 7.95H, Total Protein 4.4L, Albumin 2.1L 03/03/23 14:15: Lactic Acid Level 1.13 03/03/23 20:29: Glucometer 72 03/03/23 23:57: Glucometer 72 03/04/23 04:24: White Blood Count 11.9H, Red Blood Count 2.87L, Hemoglobin 9.0L, Hematocrit 28L, Mean Corpuscular Volume 97, Mean Corpuscular Hemoglobin 31, Mean Corpuscular Hemoglobin Concent 32, Red Cell Distribution Width 18.1H, Platelet Count 324, Mean Platelet Volume 10.0, Sodium Level 137, Potassium Level 3.8, Chloride Level 110H, Carbon Dioxide Level 16L, Anion Gap 11, Blood Urea Nitrogen 21H, Creatinine 0.67, Estimat Glomerular Filtration Rate 90, BUN/Creatinine Ratio 31, Glucose Level 73, Calcium Level 7.7L 03/04/23 08:55: Blood Gas Puncture Site LT RAD, Blood Gas Patient Temperature 36.6, Arterial Blood pH 7.39, Arterial Blood Partial Pressure CO2 30L, Arterial Blood Partial Pressure O2 95H, Arterial Blood HCO3 18L, Arterial Blood Total CO2 18.6L, Arterial Blood Oxygen Saturation 99, Arterial Blood Base Excess -6.5L, Elvis Test YES-POS, Blood Gas Ventilator Setting NO, Blood Gas Inspired Oxygen 2 L 03/04/23 10:45: Glucometer 86 Microbiology 03/03/23 Blood Culture - Preliminary, Resulted Gram Positive Tuan Patient resulted labs reviewed. Pending Labs Laboratory Tests 03/04/23 04:24: White Blood Count 11.9, Red Blood Count 2.87, Hemoglobin 9.0, Hematocrit 28, Mean Corpuscular Volume 97, Mean Corpuscular Hemoglobin 31, Mean Corpuscular Hemoglobin Concent 32, Red Cell Distribution Width 18.1, Platelet Count 324, Mean Platelet Volume 10.0, Sodium Level 137, Potassium Level 3.8, Chloride Level 110, Carbon Dioxide Level 16, Anion Gap 11, Blood Urea Nitrogen 21, Creatinine 0.67, Estimat Glomerular Filtration Rate 90, BUN/Creatinine Ratio 31, Glucose Level 73, Calcium Level 7.7 03/04/23 08:55: Blood Gas Puncture Site LT RAD, Blood Gas Patient Temperature 36.6, Arterial Blood pH 7.39, Arterial Blood Partial Pressure CO2 30, Arterial Blood Partial Pressure O2 95, Arterial Blood HCO3 18, Arterial Blood Total CO2 18.6, Arterial Blood Oxygen Saturation 99, Arterial Blood Base Excess -6.5, Elvis Test YES-POS, Blood Gas Ventilator Setting NO, Blood Gas Inspired Oxygen 2 L 03/04/23 10:45: Glucometer 86 Discharge Home Medications: Active Scripts Active Ativan (Lorazepam) 0.5 Mg Tablet 0.5 Mg PO TID PRN Acidophilus-Pectin Capsule (Lactobacillus Acidophilus/Pect) 75 Million Cell-100 Mg Capsule 2 Each PO DAILY Pantoprazole Sodium 40 Mg Tablet.dr 40 Mg PO DAILY Ondansetron Odt (Ondansetron) 4 Mg Tab.rapdis 4 Mg PO Q6H PRN Mucinex (Guaifenesin) 600 Mg Tab.er.12h 1,200 Mg PO BID Montelukast Sodium 10 Mg Tablet 10 Mg PO HS Hydroxyzine HCl 10 Mg Tablet 10 Mg PO TID PRN Trazodone HCl 50 Mg Tablet 50 Mg PO HS Sertraline HCl 50 Mg Tablet 100 Mg PO DAILY Acetaminophen 500 Mg Tablet 1,000 Mg PO Q6H PRN Aspirin 325 Mg Tablet 325 Mg PO DAILY Lisinopril 10 Mg Tablet 30 Mg PO DAILY@0900 Diltiazem 24Hr ER (Diltiazem HCl) 240 Mg Cap.er.24h 240 Mg PO DAILY@0900 Heparin Sodium (Heparin Sodium,Porcine) 5,000 Unit/Ml Vial 5,000 Units SC Q12HR Incruse Ellipta (Umeclidinium [place]) 62.5 Mcg/Actuation Blst.w.dev 0 Inh IH DAILY@0800 daily Ventolin Hfa (Albuterol Sulfate) 1 Puff Puff 2 Puff INH QID PRN Instructions to patient/family Please see electronic discharge instructions given to patient. Problem Qualifiers (1) Left leg DVT: Affected thrombotic vein of extremity: unspecified vein of extremity Van Cdl Driver nicity: acute Qualified Codes: I82.402 - Acute embolism and thrombosis of unspecified deep veins of left lower extremity ARSLAN COHEN MD Mar 04, 2023 11:12
[2023-03-04 11:25] VITALS: BP 107/47
--- NOTE | 2023-03-04 13:44 | ST Dysphagia Evaluation ---
Speech Evaluation-General Medical Diagnosis Tachycardia, Dehydration, DVT Onset Date: Mar 03, 2023 Precautions Precautions: Fall, Pressure Ulcer, Aspiration Precautions/Isolations: Aspiration, Fall Prevention, Pressure Ulcer Referral Referring Physician: Dr. Freire Reason for Referral: Evaluation/Treatment Medical History Pertinent Medical History: COPD, HTN, Renal Insufficiency Current History CXR: 03/03/23: 1. Perhaps small left basilar effusion versus pleural scarring or thickening. Otherwise, unremarkable exam of the chest. Reviewed History: Yes Social History Current Living Status: Other Family Speech PLF/Current-Dysphagia Cognitive Status Patient Orientation: Confused Oral Motor Skills Dentition: Natural Current Food Consistancy: Regular, Thin Liquids Ability to Follow Directions: Poor Oral Expression Ability: Moderate Impairment Voice Voice Phonatory-Based Quality: Normal Voice Pitch: Normal Voice Loudness: Moderately Soft/Quiet Face Facial Symmetry: Symmetrical Oral-Facial Assessment Oral-Facial Dentition: Normal Labial Seal Description: Normal The patient did not consistently follow verbal directions with direct modeling for completion of oral motor assessment. The statements regarding symmetry and strength were based on informal observations. Volitional Dry Swallow: No Voluntary Cough: No Can Clear Throat Volitionally: No Dysphagia Evaluation Consistencies Presented: Regular (One small piece of saltine cracker.), Thin Liquid (Two teaspoons of water, one straw drink of water.), Pureed (One half teaspoon of applesauce.) The patient was able to accept items from the teaspoon adequately, with appropriate lip rounding displayed. The patient displayed increased difficulty with drawing material from a straw, requiring additional time and attempts. Anterior spillage (mild) was noted with thin liquids via teaspoon. Prolonged mastication was present with the one solid consistency provided, with oral residue visualized following on the lingual surface. Laryngeal elevation was present to palpation. The patient required maximum verbal prompting and encouragement for limited participation. The patient was agreeable to two teaspoons of water, one straw drink, one teaspoon of puree, and one piece of a saltine cracker (solid). The patient refused all additional P.O. intake regardless of education for rationale of the swallowing evaluation. The patient additionally stated she did not like cold items. The clinician offered room temperature options on multiple occasions however the patient continued refusal. Due to consistent patient refusal and reduced participation, the clinician is unable to provide recommendations regarding appropriate diet consistency. The clinician can state during the limited P.O. trials of thin liquid, puree, and solid, s/s of suspected aspiration were not present. The clinician completed visual observation and a finger sweep to ensure the saltine cracker residual had cleared the oral cavity. The patient's refusal was reported the the RN following completion. Per RN, the patient has not displayed difficulty with administration of pills. Speech Short Term Goals Short Term Goals Short Term Goals The patient, family, and staff will display safe swallowing precautions with 80% accuracy, independently. Time Frame-STG: Four Days. Speech Halfway Goals Direct Service Worker Goals 1. The patient will tolerate the least restrictive diet consistency without s/s of suspected aspiration. Time Frame: One Week. Speech-Plan Treatment Plan Speech Therapy Treatment Plan: Continue Plan of Care Treatment Duration: Mar 07, 2023 Frequency: 3 times per week Estimated Hrs Per Day: .25 hour per day Rehab Potential: Poor Pt/Family Agrees to Plan: Yes Safety Risks/Education Teaching Recipient: Patient Teaching Methods: Discussion Response to Teaching: Reinforcement Needed Education Topics Provided: Results, Recommendations, Plan of Care, Safe Swallowing Precautions, Education re: Rationale for Swallowing Assessment Discharge Recommendations Post Acute ST Time Speech Therapy Time In: 12:20 Speech Therapy Time Out: 12:40 DATE: Mar 04, 2023 Total Billed Time: 20 Billed Treatment Time 1, LUPE NAVARRO [facility] Mar 04, 2023 13:44
[2023-03-04] MEDS ORDERED: HYDROcodone/APAP 5 MG/325 MG (LORTAB) TAB PO PRN (14:00)
[2023-03-04 16:54] VITALS: BP 95/57
[2023-03-04] MEDS ORDERED: CEFEPIME 1 GM/10 ML (MAXIPIME) VIAL ONE (17:31)
[2023-03-10] MEDS ORDERED: APIXABAN 5 MG (ELIQUIS) TABLET PO SCH (19:00)
== END 2023-03-04 18:10 | disposition short-term general hospital (02) | DRG 299 ==
LOC: EDUNIT# 12:27 → ER 12:28 → CSD 17:31 → OBSVTOIN 17:31
PROVIDERS: ADMIT Family Medicine; ATTEND Family Medicine
DX: I82.412 Acute embolism and thrombosis of left femoral vein (principal); I26.99 Other pulmonary embolism without acute cor pulmonale; I47.1 Supraventricular tachycardia; N39.0 Urinary tract infection, site not specified; J44.9 Chronic obstructive pulmonary disease, unspecified; I10 Essential (primary) hypertension; E86.0 Dehydration; J98.4 Other disorders of lung; G89.29 Other chronic pain; M54.9 Dorsalgia, unspecified; Z79.82 Long term (current) use of aspirin; Z79.01 Long term (current) use of anticoagulants; Z79.899 Other long term (current) drug therapy; K21.9 Gastro-esophageal reflux disease without esophagitis; F41.9 Anxiety disorder, unspecified; F32.A Depression, unspecified; M19.90 Unspecified osteoarthritis, unspecified site; Z87.891 Personal history of nicotine dependence; R09.02 Hypoxemia
CPT/HCPCS: 36415; 36600; 71045; 71275; 80048; 80053; 82805; 82947; 83605; 85007; 85027; 86141; 87040; 93308; 94640; 94760

== ENCOUNTER 2023-03-14 16:57 | Inpatient (IN) | payer OTHER, MEDICARE ==
[~2023-03-14] VITALS: Ht 157 cm; Wt 77.2 kg
--- NOTE | 2023-03-14 17:52 | ED General ---
General Chief Complaint: Respiratory Problems Stated Complaint: SOA Nursing Triage Note: PT ARRIVED PER EMS, PT WAS SENT TO HOSPITAL FROM [facility] PT WAS RELEASED FROM [facility] TODAY. PT HAS BEEN MORE CONFUSED TODAY. PT HAS BEEN HOSPITALIZED FOR APPROX 8 WEEKS. PT HAS O2 ON AT 3L PER N/C. PT HAS LEDESMA INTACT W VERY DARK URINE IN BAG. STATES PT IS BEING TREATED FOR UTI CURRENTLY. EMS REPORTS PT OPEN BREAKDOWNS ON COCCYX. PT DENIES PAIN AT THIS X Source of Information: Patient Exam Limitations: No Limitations (INDIRA HALEY MD) History of Present Illness Date Seen by Provider: Mar 14, 2023 Time Seen by Provider: 17:27 Initial Comments Here from [facility] by EMS with report of being grossly confused with labored breathing and dark urine with concerns of organ failure. Apparently she just got out of [facility] in [place] today and was transferred to [facility] where she was subsequently quickly transferred here due to the aforementioned concerns. Patient was noted to have essentially normal vital signs per EMS. Family is very concerned due to the fact they were told that they needed to have end-of-life planning based on what they were seeing at the [facility]. Family states that while at [facility], she did have clot retrieval to both legs due to DVT and is on Eliquis. She did have findings of urinary tract infection and is on linezolid. She also has right ear infection and has antibiotic drops for that per discharge instructions from the hospital that was given to the [facility]. Patient is very hard of hearing and does seem somnolent. She has had a very difficult medical course this year and had prolonged hospitalization at [facility] due to pneumonia and respiratory failure. After release there, she was found to have a DVT and presented here and subsequently transferred to [facility] for the retrieval procedure. She was found to have urinary tract infection with Enterococcus faecalis and yeast and had treatment initiated at that point. Timing/Duration: 1-3 Hours Severity: Moderate Associated Systoms: No Cough, No Fever/Chills, No Nausea/Vomiting; Shortness of Air, Weakness (INDIRA HALEY MD) Allergies and Home Medications Allergies Coded Allergies: codeine (Verified Allergy, Unknown, 03/23/08) gatifloxacin (Verified Allergy, Unknown, 03/23/08) nitrofurantoin (Verified Allergy, Unknown, 03/23/08) Patient Home Medication List Home Medication List Reviewed: Yes (INDIRA HALEY MD) Acetaminophen (Acetaminophen) 500 Mg Tablet, 1,000 MG PO Q6H PRN for PAIN-MILD (1-4) Prescribed by: ANASTACIO KEY on 02/21/23621 Albuterol Sulfate (Ventolin Hfa) 1 Puff Puff, 2 PUFF INH QID PRN for SHORTNESS OF BREATH Prescribed by: ANASTACIO KEY on 02/21/23621 Aspirin (Aspirin) 325 Mg Tablet, 325 MG PO DAILY Prescribed by: ANASTACIO KEY on 02/21/23621 Diltiazem HCl (Diltiazem 24Hr ER) 240 Mg Cap.er.24h, 240 MG PO DAILY@0900 Prescribed by: ANASTACIO KEY on 02/21/23621 Guaifenesin (Mucinex) 600 Mg Tab.er.12h, 1,200 MG PO BID Prescribed by: ANASTACIO KEY on 02/21/23621 Heparin Sodium,Porcine (Heparin Sodium) 5,000 Unit/Ml Vial, 5,000 UNITS SC Q12HR Prescribed by: ANASTACIO KEY on 02/21/23621 Hydroxyzine HCl (Hydroxyzine HCl) 10 Mg Tablet, 10 MG PO TID PRN for ANXIETY Prescribed by: ANASTACIO KEY on 02/21/23621 Lactobacillus Acidophilus/Pect (Acidophilus-Pectin Capsule) 75 Million Cell-100 Mg Capsule, 2 EACH PO DAILY Prescribed by: ANASTACIO KEY on 02/21/23621 Lisinopril (Lisinopril) 10 Mg Tablet, 30 MG PO DAILY@0900 Prescribed by: ANASTACIO KEY on 02/21/23621 Lorazepam (Ativan) 0.5 Mg Tablet, 0.5 MG PO TID PRN for ANXIETY Prescribed by: ANASTACIO KEY on 02/21/23621 Montelukast Sodium (Montelukast Sodium) 10 Mg Tablet, 10 MG PO HS Prescribed by: ANASTACIO KEY on 02/21/23621 Ondansetron (Ondansetron Odt) 4 Mg Tab.rapdis, 4 MG PO Q6H PRN for NAUSEA/VOMITING-1ST LINE Prescribed by: ANASTACIO KEY on 02/21/23621 Pantoprazole Sodium (Pantoprazole Sodium) 40 Mg Tablet.dr, 40 MG PO DAILY Prescribed by: ANASTACIO KEY on 02/21/23621 Sertraline HCl (Sertraline HCl) 50 Mg Tablet, 100 MG PO DAILY Prescribed by: ANASTACIO KEY on 02/21/23621 Trazodone HCl (Trazodone HCl) 50 Mg Tablet, 50 MG PO HS Prescribed by: ANASTACIO KEY on 02/21/23621 Umeclidinium [place] (Incruse Ellipta) 62.5 Mcg/Actuation Blst.w.dev, 0 INH IH DAILY@0800 Prescribed by: ANASTACIO KEY on 02/21/23621 Review of Systems Review of Systems Constitutional: see HPI; No fever EENTM: other (Right ear drainage); No nose congestion Respiratory: No cough; short of breath, other (Rapid breathing) Cardiovascular: edema Gastrointestinal: No vomiting Genitourinary: other (Ledesma catheter with dark urine noted) Musculoskeletal: muscle weakness Psychiatric/Neurological: Weakness (INDIRA HALEY MD) Past Iuposlg-Tjvjez-Zookgb Hx Patient Social History Tobacco Use?: No Substance use?: No Alcohol Use?: No Pt feels they are or have been: No (INDIRA HALEY MD) Immunizations Up To Date Tetanus Booster (TDap): Unknown PED Vaccines UTD: Yes First/Initial COVID19 Vaccinat: YES Second COVID19 Vaccination Alirio: YES Third COVID19 Vaccination Date: YES (INDIRA HALEY MD) Seasonal Allergies Seasonal Allergies: Yes (INDIRA HALEY MD) Past Medical History Surgery/Hospitalization HX: appy, copd, asthma, htn, svt, gerd, anx/dep, PNEUMONIA Surgeries: Yes Appendectomy Respiratory: Yes Asthma, COPD Currently Using CPAP: No Currently Using BIPAP: No Cardiac: Yes (SVT) 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, Irregular Heartbeat Neurological: No Reproductive Disorders: No Female Reproductive Disorders: Denies [employer] History: 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 Sexually Transmitted Disease: No Genitourinary: No Renal Failure Gastrointestinal: Yes Gastroesophageal Reflux Musculoskeletal: Yes (RIGHT HUMERUS FRACTURE, R FOOT) Arthritis, Fractures Endocrine: No HEENT: No Cancer: No Psychosocial: Yes Anxiety, Depression Integumentary: No Blood Disorders: No (INDIRA HALEY MD) Family Medical History Reviewed Nursing Family Hx (INDIRA HALEY MD) Dementia 19 MOTHER, , Age:88, Onset:60 years & older FH: CAD (coronary artery disease) 19 FATHER, , Age:64, Onset:60 years & older FH: CHF (congestive heart failure) 19 MOTHER, , Age:88, Onset:60 years & older Myocardial infarction 19 MOTHER, , Age:88, Onset:50's - 60 Heart Disease, Diabetes, 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 (INDIRA HALEY MD) Physical Exam Vital Signs Vital Signs - First Documented 03/14/23 03/14/23 03/14/23 17:05 19:30 20:11 Pulse 101 Resp 32 B/P (MAP) 104/61 (75) Pulse Ox 100 O2 Delivery Nasal Cannula O2 Flow Rate 1.50 FiO2 21 (MONTSERRAT CALDERON MD) Vital Signs Capillary Refill : Less Than 3 Seconds (INDIRA HALEY MD) Height, Weight, BMI Height: 5'3.00" Weight: 140lbs. 0.0oz. 63.815177dp; 21.00 BMI Method:Stated General Appearance: Chronically ill, Mild Distress, Other (Ill-appearing) HEENT: PERRL/EOMI, Other (Drainage from right TM with opacity to the right TM noted. Left TM normal) Neck: Non Tender, Supple Respiratory: Crackles (Few basilar crackles), Other (Intermittent rapid breathing O2 sats at 96 to 100%) Cardiovascular: No Murmur, Tachycardia Gastrointestinal: Normal Bowel Sounds, Non Tender, Soft Back: No CVA Tenderness Extremity: Pedal Edema (2+ bilateral), Other (Mild edema noted to bilateral hands and distal arms) Neurologic/Psychiatric: Other (Awake and very hard of hearing and does answer some questions but seems confused to situation and time) Skin: Pallor (INDIRA HALEY MD) Focused Exam Sepsis Stage: Sepsis Possible Source: Genitouriary Lactate Level 03/14/23 17:15: Lactic Acid Level 1.61 (MONTSERRAT CALDERON MD) Time of Focused Exam: 19:25 Respiratory: Lungs Clear, Other (Increased expiratory effort with slightly prolonged expiratory phase) Cardiovascular: Regular Rate, Rhythm, No Edema, No Murmur Skin: normal color, warm/dry Lactic Acid Level Laboratory Tests Test 03/14/23 17:15 Lactic Acid Level 1.61 MMOL/L (0.50-2.00) (MONTSERRAT CALDERON MD) Within 3hrs of presentation: Admin fluids, Admin ABX, Blood cultures prior to ABX's, Focus exam, Lactate level, Other (MONTSERRAT CALDERON MD) Progress/Results/Core Measures Suspected Sepsis SIRS Temperature: Pulse: 101 Respiratory Rate: 32 Laboratory Tests 03/14/23 17:15: White Blood Count 21.3H Blood Pressure 104 /61 Mean: 75 03/14/23 17:15: Lactic Acid Level 1.61 Laboratory Tests 03/14/23 17:15: Creatinine 0.66, Platelet Count 409H, Total Bilirubin 2.1H (INDIRA HALEY MD) Results/Orders Lab Results Laboratory Tests Test 03/14/23 17:15 03/14/23 18:21 03/14/23 20:05 03/14/23 20:10 Range/Units White Blood Count 21.3 H 4.3-11.0 10^3/uL Red Blood Count 3.04 L 3.80-5.11 10^6/uL Hemoglobin 9.6 L 11.5-16.0 g/dL Hematocrit 31 L 35-52 % Mean Corpuscular Volume 103 H 80-99 fL Mean Corpuscular Hemoglobin 32 25-34 pg Mean Corpuscular Hemoglobin Concent 31 L 32-36 g/dL Red Cell Distribution Width 17.7 H 10.0-14.5 % Platelet Count 409 H 130-400 10^3/uL Mean Platelet Volume 10.1 9.0-12.2 fL Immature Granulocyte % (Auto) 6 % Neutrophils (%) (Auto) 69 42-75 % Lymphocytes (%) (Auto) 17 12-44 % Monocytes (%) (Auto) 7 0-12 % Eosinophils (%) (Auto) 1 0-10 % Basophils (%) (Auto) 1 0-10 % Neutrophils # (Auto) 14.6 H 1.8-7.8 10^3/uL Lymphocytes # (Auto) 3.6 1.0-4.0 10^3/uL Monocytes # (Auto) 1.5 H 0.0-1.0 10^3/uL Eosinophils # (Auto) 0.3 0.0-0.3 10^3/uL Basophils # (Auto) 0.2 H 0.0-0.1 10^3/uL Immature Granulocyte # (Auto) 1.2 H 0.0-0.1 10^3/uL Neutrophils % (Manual) 77 % Lymphocytes % (Manual) 15 % Monocytes % (Manual) 4 % Eosinophils % (Manual) 3 % Basophils % (Manual) 1 % [place] Cells SLIGHT Elliptocytes SLIGHT Prothrombin Time 51.9 *H 12.2-14.7 SEC INR Comment 6.0 *H 0.8-1.4 Activated Partial Thromboplast Time 85 H 24-35 SEC Sodium Level 143 135-145 MMOL/L Potassium Level 3.9 3.6-5.0 MMOL/L Chloride Level 114 H 98-107 MMOL/L Carbon Dioxide Level 21 21-32 MMOL/L Anion Gap 8 5-14 MMOL/L Blood Urea Nitrogen 17 7-18 MG/DL Creatinine 0.66 0.60-1.30 MG/DL Estimat Glomerular Filtration Rate 90 BUN/Creatinine Ratio 26 Glucose Level 86 70-105 MG/DL Lactic Acid Level 1.61 0.50-2.00 MMOL/L Calcium Level 7.5 L 8.5-10.1 MG/DL Corrected Calcium 9.2 8.5-10.1 MG/DL Total Bilirubin 2.1 H 0.1-1.0 MG/DL Aspartate Amino Transf (AST/SGOT) 73 H 5-34 U/L Alanine Aminotransferase (ALT/SGPT) 53 0-55 U/L Alkaline Phosphatase 328 H 40-136 U/L Troponin I 0.039 H 0.038 H <0.028 NG/ML C-Reactive Protein High Sensitivity 14.23 H 0.00-0.50 MG/DL B-Type Natriuretic Peptide 184.6 H <100.0 PG/ML Total Protein 4.8 L 6.4-8.2 GM/DL Albumin 1.9 L 3.2-4.5 GM/DL Urine Color ORANGE Urine Clarity CLOUDY Urine pH 5.5 5-9 Urine Specific [place] 1.020 1.016-1.022 Urine Protein 2+ H NEGATIVE Urine Glucose (UA) NEGATIVE NEGATIVE Urine Ketones TRACE H NEGATIVE Urine Nitrite NEGATIVE NEGATIVE Urine Bilirubin 2+ H NEGATIVE Urine Urobilinogen 2.0 < = 1.0 MG/DL Urine Leukocyte Esterase 2+ H NEGATIVE Urine RBC (Auto) 3+ H NEGATIVE Urine RBC >100 H /HPF Urine WBC 50-100 H /HPF Urine Squamous Epithelial Cells RARE /HPF Urine Crystals NONE /LPF Urine Bacteria FEW H /HPF Urine Casts NONE /LPF Urine Mucus NEGATIVE /LPF Urine Yeast FEW H /HPF Urine Culture Indicated YES Blood Gas Puncture Site RR Blood Gas Patient Temperature 37.1 Arterial Blood pH 7.37 7.37-7.43 Arterial Blood Partial Pressure CO2 37 35-45 MMHG Arterial Blood Partial Pressure O2 72 L 79-93 MMHG Arterial Blood HCO3 21 L 23-27 MMOL/L Arterial Blood Total CO2 22.1 21.0-31.0 MMOL/L Arterial Blood Oxygen Saturation 94 94-100 % Arterial Blood Base Excess -3.4 L -2.5-2.5 MMOL/L Elvis Test YES-POS Blood Gas Ventilator Setting NO Blood Gas Inspired Oxygen RA (MONTSERRAT CALDERON MD) Micro Results Microbiology 03/14/23 Blood Culture - Preliminary, Resulted No growth 03/14/23 Urine Culture - Preliminary, Resulted See Comments 03/14/23 Blood Culture - Preliminary, Resulted No growth (MONTSERRAT CALDERON MD) My Orders Orders - MONTSERRAT CALDERON MD Blood Culture (03/14/23 18:08) Sputum Culture (03/14/23 18:08) Urinalysis (03/14/23 18:08) Urine Culture (03/14/23 18:08) Protime With Inr (03/14/23 18:08) Partial Thromboplastin Time (03/14/23 18:08) Ed Iv/Invasive Line Start (03/14/23 18:08) Vital Signs Adult Sepsis Patie Q15M (03/14/23 18:08) O2 (03/14/23 18:08) Remove Rings In Anticipation O (03/14/23 18:08) Lactic Acid Analyzer (03/14/23 18:08) Piperacillin Sodium/Tazobactam (Zosyn Vi (03/14/23 18:30) Ekg Tracing (03/14/23 18:22) Monitor-Rhythm Ecg Trace Only (03/14/23 18:22) Troponin I Coles (03/14/23 19:35) Albuterol/Ipra Inhalation Soln (Duoneb I (03/14/23 19:30) Svn Small Volume Nebulizer (03/14/23 19:30) Lactated Ringers (Lr 1000 Ml Iv Solution (03/14/23 19:30) Ed Admission (Communication) (03/14/23 20:02) Code/Resuscitation (03/14/23 20:02) Arterial Blood Gas (03/14/23 20:10) Arterial Blood Draw - Obtain (03/14/23 ) (MONTSERRAT CALDERON MD) Medications Given in ED (MONTSERRAT CALDERON MD) Vital Signs/I&O 03/14/23 03/14/23 03/14/23 17:05 19:30 20:11 Pulse 101 Resp 32 B/P (MAP) 104/61 (75) Pulse Ox 100 O2 Delivery Nasal Cannula O2 Flow Rate 1.50 FiO2 21 (MONTSERRAT CALDERON MD) Vital Signs/I&O Capillary Refill : Less Than 3 Seconds (INDIRA HALEY MD) Blood Pressure Mean: 75 Progress Note : Progress Note Seen and evaluated. Patient does appear ill. We are getting old records from [facility] and I have reviewed discharge summary given to [facility]. Patient currently is on linezolid for urinary tract infection and Ciprodex drops for her ear infection. I have initiated labs with CBC, CMP and CRP. Patient was seen by me on last hospitalization and admitted by me to hospitalist team 1 we were unable to transfer to [facility] due to no bed space available. Review of discharge summary shows that the patient was admitted and did have urinary tract infection found and was transferred for DVT concerns and clot retrieval to [facility] in [facility] when that opened up. We will get EKG and chest x- ray now. 1800: Care transferred to Dr. Calderon pending labs and further evaluation. Potential for increased to full sepsis work-up based on initial lab evaluation. Differential diagnosis includes urinary tract infection, pneumonia, dehydration, electrolyte abnormality (INDIRA HALEY MD) Progress Note #1: Time: 18:19 Progress Note Care of this patient has been assumed from Dr. Haley at shift change. I received verbal report from Dr. Haley and reviewed labs that have been received. Patient was noted to have tachycardia and a leukocytosis of 21,000. Septic order set has now been initiated including blood cultures and lactic acid. Urine and blood cultures from prior visit have been reviewed. Chest x- ray from today was viewed by me. By my interpretation there are bilateral basilar infiltrates and/or atelectasis when compared with prior. Radiologist's report was also reviewed, but did not note the right lower lung findings. Hannah ent will be started on broad-spectrum antibiotics for suspected pneumonia and urinary tract infection. SIRS is present with leukocytosis and tachycardia indicating patient is likely septic. Progress Note #2: Time: 19:33 Progress Note The remainder of labs have been reviewed. Lactic acid was normal. Troponin was slightly elevated at 0.039. We will obtain a serial troponin now as it has been more than 2 hours. Patient appears to have increased effort with expiration and would likely benefit from an ABG and DuoNeb treatment. These have been ordered. Patient does have history of COPD. elaborates on her present mental status and states that she has been in this delirious state continuously for about the past 10 days. She has really been this way since being transferred to [facility] for the lower extremity venous thrombectomies. also elaborates that she has only received 1 dose of linezolid and her PICC line this morning. Urinary tract infection is still present based on her urinalysis tonight and I suspect that she has a recurrent or persistent pneumonia as well. She is receiving her dose of Zosyn now. I discussed CODE STATUS with patient's . He expresses a desire for full code at this time. I did assistant counsel the on risks and benefits of resuscitation efforts including CPR, defibrillation, and intubation. I explained that there is significant risk of her having a poor outcome with suffering and debilitation during and after a resuscitation effort which may include survival in a more debilitated state. He still elects full code at this time. Patient's coag panel was also reviewed. INR tonight is 6. PTT and PT are also high. She has not had her evening Eliquis, but given the markedly elevated coagulation labs, risks and benefits of giving further anticoagulation tonight versus waiting until later should be considered carefully. I have communicated these lab findings and my concern to Dr. Lentz. Dr. Lentz is the admitting hospitalist and agrees to admission. He would like to continue antibiotic therapy with Zosyn and linezolid. Progress Note #3: Progress Note Report was given to eICU, They are initiating lovenox and linezolid therapy. (MONTSERRAT CALDERON MD) ECG Initial ECG Impression Date: Mar 14, 2023 Initial ECG Impression Time: 17:14 Initial ECG Rate: 104 Initial ECG Rhythm: S.Tach Comment Sinus tachycardia with leftward axis. No evidence of ST elevation MD. Interpreted by me. (INDIRA HALEY MD) Diagnostic Imaging Diagonstic Imaging: Xray Plain Films/CT/US/NM/MRI: chest Comments NAME: [facility] REC#: [id number] PT STATUS: REG ER : 1945 PHYSICIAN: INDIRA HALEY MD ADMIT DATE: 03/14/23/ER Draft Date of Exam:03/14/23 CHEST 1 VIEW, AP/PA ONLY INDICATION: Labored breathing. COMPARISON: Prior examination from 03/03/2023. FINDINGS: The heart size is normal. There is some left basilar atelectasis and/or pneumonitis. There is a small left pleural effusion. There is no pneumothorax. The mediastinum is unremarkable. IMPRESSION: Left basilar atelectasis and/or pneumonitis and a small left pleural effusion. Dictated on workstation # [id number] Dict: 03/14/23 1811 Trans: 03/14/23 1814 [facility] [id number] Interpreted by: CHARO SHANNON MD (MONTSERRAT CALDERON MD) Departure Communication (Admissions) Time/Spoke to Admitting Phy: 19:37 Dr. Lentz (MONTSERRAT CALDERON MD) Impression Primary Impression: Sepsis Qualified Codes: A41.9 - Sepsis, unspecified organism Additional Impressions: Pneumonia Qualified Codes: J18.9 - Pneumonia, unspecified organism Urinary tract infection Qualified Codes: N39.0 - Urinary tract infection, site not specified Delirium COPD exacerbation Disposition: ADMITTED INPATIENT Condition: Improved Admissions Decision to Admit Reason: Admit from ER (General) Decision to Admit/Date: Mar 14, 2023 Time/Decision to Admit Time: 19:37 (MONTSERRAT CALDERON MD) Departure-Patient Inst. Referrals: ESTER ALLRED MD (PCP/Family) Primary Care Physician Copy Copies To 1: ESTER ALLRED MD, TIMOTHY D MD Mar 14, 2023 17:52 MONTSERRAT CALDERON MD Mar 14, 2023 18:21
[2023-03-14 17:56] LABS: BASOPHILS # (AUTO) 0.2 10^3/uL (0.0-0.1); BASOPHILS % (AUTO) 1 % (0-10); EOSINOPHILS # (AUTO) 0.3 10^3/uL (0.0-0.3); EOSINOPHILS % (AUTO) 1 % (0-10); HEMATOCRIT 31 % (35-52); HEMOGLOBIN 9.6 g/dL (11.5-16.0); LYMPHOCYTES # (AUTO) 3.6 10^3/uL (1.0-4.0); LYMPHOCYTES % (AUTO) 17 % (12-44); MEAN CORPUSCULAR HEMOGLOBIN 32 pg (25-34); MEAN CORPUSCULAR HGB CONC 31 g/dL (32-36); MEAN CORPUSCULAR VOLUME 103 fL (80-99); MEAN PLATELET VOLUME 10.1 fL (9.0-12.2); MONOCYTES # (AUTO) 1.5 10^3/uL (0.0-1.0); MONOCYTES % (AUTO) 7 % (0-12); NEUTROPHILS # (AUTO) 14.6 10^3/uL (1.8-7.8); NEUTROPHILS % (AUTO) 69 % (42-75); PLATELET COUNT 409 10^3/uL (130-400); WHITE BLOOD COUNT 21.3 10^3/uL (4.3-11.0)
[2023-03-14 18:00] LABS: ALBUMIN 1.9 GM/DL (3.2-4.5); POTASSIUM 3.9 MMOL/L (3.6-5.0)
[2023-03-14 18:01] LABS: CALCIUM 7.5 MG/DL (8.5-10.1)
[2023-03-14 18:03] LABS: TOTAL PROTEIN 4.8 GM/DL (6.4-8.2)
[2023-03-14 18:04] LABS: BILIRUBIN,TOTAL 2.1 MG/DL (0.1-1.0)
[2023-03-14 18:06] LABS: CREATININE SERUM 0.66 MG/DL (0.60-1.30)
--- NOTE | 2023-03-14 18:14 | Diagnostic Imaging Report ---
INDICATION: Labored breathing. COMPARISON: Prior examination from 03/03/2023. FINDINGS: The heart size is normal. There is some left basilar atelectasis and/or pneumonitis. There is a small left pleural effusion. There is no pneumothorax. The mediastinum is unremarkable. IMPRESSION: Left basilar atelectasis and/or pneumonitis and a small left pleural effusion. Dictated by: Dictated on workstation # [id number]
[2023-03-14 18:29] LABS: LYMPHOCYTES % (MANUAL) 15 %; MONOCYTES % (MANUAL) 4 %; NEUTROPHILS % (MANUAL) 77 %
[2023-03-14 18:30] LABS: BASOPHILS % (MANUAL) 1 %; BURR CELLS SLIGHT; ELLIPT/OVALOCYTES SLIGHT; EOSINOPHILS % (MANUAL) 3 %
[2023-03-14] MEDS ORDERED: PIPERACILLIN SODIUM/TAZOBACTAM 4.5 GM in NS (IVPB) 100 ML IV ONE (18:30)
[2023-03-14 18:34] LABS: CLARITY,URINE CLOUDY; COLOR,URINE ORANGE; GLUCOSE, URINE (UA) NEGATIVE (NEGATIVE); KETONES,URINE TRACE (NEGATIVE); LEUKOCYTE ESTERASE ,URINE 2+ (NEGATIVE); NITRITE,URINE NEGATIVE (NEGATIVE); PH,URINE 5.5 (5-9); PROTEIN,URINE 2+ (NEGATIVE)
[2023-03-14 18:34] LABS: PROTHROMBIN TIME PATIENT 51.9 SEC (12.2-14.7)
[2023-03-14 18:44] LABS: BACTERIA,URINE FEW /HPF; BILIRUBIN,URINE 2+ (NEGATIVE); RBC,URINE >100 /HPF; SQUAMOUS EPITHELIAL CELL,UR RARE /HPF; WBC,URINE 50-100 /HPF; YEAST,URINE FEW /HPF
[2023-03-14] MEDS ORDERED: LACTATED RINGERS 1,000 ML IV ONE (19:30)
[2023-03-14] MEDS ORDERED: RT-ALBUTEROL/IPRATROPIUM 3 ML (DUONEB) VIAL INH ONE (19:30)
[2023-03-14 20:21] LABS: ABG BASE EXCESS -3.4 MMOL/L (-2.5-2.5); ABG OXYGEN SATURATION 94 % (94-100); ABG PCO2 37 MMHG (35-45); ABG PH 7.37 (7.37-7.43); ABG PO2 72 MMHG (79-93); ABG TCO2 22.1 MMOL/L (21.0-31.0)
[2023-03-14 20:22] LABS: ALLENS TEST YES-POS; INSPIRED O2 RA; PATIENT TEMP 37.1; VENTILATOR NO
[2023-03-14] MEDS ORDERED: ONDANSETRON 4 MG/2 ML (SDV) Z0FRAN IV PRN (21:00)
[2023-03-14] MEDS ORDERED: CALCIUM CARBONATE 500 MG (TUMS) TAB.CHEW PO PRN (21:00)
[2023-03-14] MEDS ORDERED: NS IV 500 ML 500 ML IV PRN (21:00)
[2023-03-14] MEDS ORDERED: MILK OF MAGNESIA 400 MG/5 ML 30 ML UDC PO PRN (21:00)
[2023-03-14] MEDS ORDERED: LACTULOSE SYRUP 10GM/15ML (ENULOSE) 30ML UDC PO PRN (21:00)
[2023-03-14] MEDS ORDERED: ANTACID SUSP 30 ML UDC (MYLANTA) PO PRN (21:00)
[2023-03-14] MEDS ORDERED: ACETAMINOPHEN 325 MG TABLET PO PRN (21:00)
[2023-03-14] MEDS ORDERED: ONDANSETRON 4 MG (ZOFRAN) ORAL DISSOLVE TAB PO PRN (21:00)
[2023-03-14] MEDS ORDERED: BISACODYL 10 MG SUPP (DULCOLAX) PR PRN (21:00)
[2023-03-14] MEDS ORDERED: MELATONIN 3 MG TABLET PO PRN (21:00)
[2023-03-14] MEDS ORDERED: polyethylene glycoL POWDER 17 GM (MIRALAX) PACK PO PRN (21:00)
--- NOTE | 2023-03-14 21:53 | Tele-ICU Consult ---
History of Present Illness History of Present Illness Date Seen by Provider: Mar 14, 2023 Time Seen by Provider: 21:50 Date of Admission 03/14/23 History of Present Illness (Tele-ICU Physician , Progress Note ) Service provided via interactive audio and video telecommunications E-CARE s ystem to a patient admitted to ICU bed in [facility]. Patient is seen today due to persistent need of ICU care Available chart/ vitals / labs / Images reviewed Video assessment done using teleICU camera, rest of exam as per RN She is admitted via emergency room today because of altered mental status with confusion and lab work of breathing associated with dark urine. She was recently hospitalized at [facility] with DVT and a urinary tract infection. She is a discharge her to a local fdc on linezolid and Eliquis. She is in today is diagnosed with persistent urinary tract infection along with sepsis syndrome hence she is admitted to the intensive care unit. Impression 1. Recurrent urinary tract infection 2. Sepsis syndrome with metabolic encephalopathy 3. Elevated INR due to sepsis and Eliquis. Recommendations 1. Broad-spectrum antibiotics with IV Zosyn and linezolid and IV Zosyn for primary care physician 2. We will hold off Lovenox due to elevated INR 3. We will repeat INR in a.m. and if necessary will give IV vitamin K. 4. Hydrate patient with IV fluids. 5. Collaboration of care along with primary care physician and bedside consultants. I am remotely monitoring this patient from Tele icu station in [place]. I am unable to do the bedside exam, and history/physical and pertinent information is taken from other notes in the computer and bedside staff. Certain portions of this document may have been dictated utilizing voice recognition technology such as [employer]. Inherent to this technology, typographical and grammatical errors may exist. As much as I am diligent to identify and correct to these mistakes, some errors may remain in the document. Critical care time devoted to this patient today is approximately is-35 minutes.- Allergies and Home Medications Allergies Coded Allergies: codeine (Verified Allergy, Unknown, 03/23/08) gatifloxacin (Verified Allergy, Unknown, 03/23/08) nitrofurantoin (Verified Allergy, Unknown, 03/23/08) Home Medications Acetaminophen 500 Mg Tablet, 1,000 MG PO Q6H PRN for PAIN-MILD (1-4) Prescribed by: ANASTACIO S KEY on 02/21/23621 Albuterol Sulfate 1 Puff Puff, 2 PUFF INH QID PRN for SHORTNESS OF BREATH Prescribed by: ANASTACIO KEY on 02/21/23621 Aspirin 325 Mg Tablet, 325 MG PO DAILY Prescribed by: ANASTACIO KEY on 02/21/23621 Diltiazem HCl 240 Mg Cap.er.24h, 240 MG PO DAILY@0900 Prescribed by: ANASTACIO KEY on 02/21/23621 Guaifenesin 600 Mg Tab.er.12h, 1,200 MG PO BID Prescribed by: ANASTACIO KEY on 02/21/23621 Heparin Sodium,Porcine 5,000 Unit/Ml Vial, 5,000 UNITS SC Q12HR Prescribed by: ANASTACIO KEY on 02/21/23621 Hydroxyzine HCl 10 Mg Tablet, 10 MG PO TID PRN for ANXIETY Prescribed by: ANASTACIO KEY on 02/21/23621 Lactobacillus Acidophilus/Pect 75 Million Cell-100 Mg Capsule, 2 EACH PO DAILY Prescribed by: ANASTACIO KEY on 02/21/23621 Lisinopril 10 Mg Tablet, 30 MG PO DAILY@0900 Prescribed by: ANASTACIO KEY on 02/21/23621 Lorazepam 0.5 Mg Tablet, 0.5 MG PO TID PRN for ANXIETY Prescribed by: ANASTACIO KEY on 02/21/23621 Montelukast Sodium 10 Mg Tablet, 10 MG PO HS Prescribed by: ANASTACIO KEY on 02/21/23621 Ondansetron 4 Mg Tab.rapdis, 4 MG PO Q6H PRN for NAUSEA/VOMITING-1ST LINE Prescribed by: ANASTACIO KEY on 02/21/23621 Pantoprazole Sodium 40 Mg Tablet.dr, 40 MG PO DAILY Prescribed by: ANASTACIO KEY on 02/21/23621 Sertraline HCl 50 Mg Tablet, 100 MG PO DAILY Prescribed by: ANASTACIO KEY on 02/21/23621 Trazodone HCl 50 Mg Tablet, 50 MG PO HS Prescribed by: ANASTACIO KEY on 02/21/23621 Umeclidinium [place]imer 62.5 Mcg/Actuation Blst.w.dev, 0 INH IH DAILY@0800 daily Prescribed by: ANASTACIO KEY on 02/21/23 0622 Past Medical/Social/Family Hx Patient Social History Tobacco Use?: No Substance use?: No Alcohol Use?: No Pt stated abuse/neglect: No Immunizations Up To Date First/Initial COVID19 Vaccinat: YES Second COVID19 Vaccination Alirio: YES Tetanus Booster (TDap): Unknown Hepatitis A: Yes Hepatitis B: Yes TB Skin Test: None Current Status Advance Directives: No Communicates: Verbally Primary Language: Bangladeshi Preferred Spoken Language: Bangladeshi Is interpretation needed?: No Review of Systems Constitutional: see HPI, fever, malaise, other (confusion) Focused Exam Lactate Level 03/14/23 17:15: Lactic Acid Level 1.61 Height, Weight, BMI Height: 5'3.00" Weight: 140lbs. 0.0oz. 63.731727gf; 21.00 BMI Method:Stated Time of Focused Exam: 19:25 Exam Exam Patient acknowledged, consented, and participated in this virtual visit which was conducted using real time audio/video Vital Signs Date Time Temp Pulse Resp B/P (MAP) Pulse Ox O2 Delivery O2 Flow Rate FiO2 03/14/23 20:47 95 25 101/63 100 Room Air 03/14/23 20:11 21 03/14/23 19:30 Nasal Cannula 1.50 03/14/23 17:05 101 32 104/61 (75) 100 Height & Weight Height: 5'3.00" Weight: 140lbs. 0.0oz. 63.635418yh; 21.00 BMI Method:Stated General Appearance: Chronically ill, Mild Distress, Other (Ill-appearing) HEENT: PERRL/EOMI, Other (Drainage from right TM with opacity to the right TM noted. Left TM normal) Neck: Non Tender, Supple Respiratory: Lungs Clear, Other (Increased expiratory effort with slightly prolonged expiratory phase) Cardiovascular: Regular Rate, Rhythm, No Edema, No Murmur Capillary Refill: Less Than 3 Seconds Extremity: Pedal Edema (2+ bilateral), Other (Mild edema noted to bilateral hands and distal arms) Neurologic/Psychiatric: Other (Awake and very hard of hearing and does answer some questions but seems confused to situation and time) Skin: Pallor Results Lab Laboratory Tests 03/14/23 17:15 Assessment/Plan Assessment/Plan as above Critical Care: Critically Ill Patient Time spent with patient (mins): 35 HERNANDO HAMM MD Mar 14, 2023 21:53
[2023-03-14] MEDS: LACTATED RINGERS 1,000 ML IV SCH (22:48)
[2023-03-14] MEDS: LINEZOLID IVPB 300 ML IV SCH (22:49)
[2023-03-14] MEDS: SENNOSIDES 8.6 MG (SENOKOT) TAB PO SCH (22:53)
[2023-03-14] MEDS: DOCUSATE SODIUM 100 MG (COLACE) CAP PO SCH (22:53)
[2023-03-14] MEDS ORDERED: ENOXAPARIN 60 MG/0.6 ML (LOVENOX) SYR SC SCH (23:15)
[2023-03-15] MEDS: PIPERACILLIN SODIUM/TAZOBACTAM 4.5 GM in NS (IVPB) 100 ML IV SCH ×3 (03:38→20:42)
[2023-03-15] MEDS ORDERED: RT-ALBUTEROL/IPRATROPIUM 3 ML (DUONEB) VIAL ONE (04:21)
[2023-03-15] MEDS: RT-ALBUTEROL/IPRATROPIUM 3 ML (DUONEB) VIAL INH SCH ×5 (04:24→18:49)
[2023-03-15 04:44] LABS: BASOPHILS # (AUTO) 0.1 10^3/uL (0.0-0.1); BASOPHILS % (AUTO) 1 % (0-10); EOSINOPHILS # (AUTO) 0.3 10^3/uL (0.0-0.3); EOSINOPHILS % (AUTO) 2 % (0-10); HEMATOCRIT 23 % (35-52); HEMOGLOBIN 7.6 g/dL (11.5-16.0); LYMPHOCYTES % (AUTO) 21 % (12-44); MEAN CORPUSCULAR HEMOGLOBIN 32 pg (25-34); MEAN CORPUSCULAR HGB CONC 33 g/dL (32-36); MEAN CORPUSCULAR VOLUME 99 fL (80-99); MEAN PLATELET VOLUME 10.1 fL (9.0-12.2); MONOCYTES # (AUTO) 1.1 10^3/uL (0.0-1.0); MONOCYTES % (AUTO) 7 % (0-12); NEUTROPHILS # (AUTO) 9.1 10^3/uL (1.8-7.8); NEUTROPHILS % (AUTO) 63 % (42-75); PLATELET COUNT 290 10^3/uL (130-400); WHITE BLOOD COUNT 14.4 10^3/uL (4.3-11.0)
[2023-03-15] MEDS ORDERED: RT-ALBUTEROL/IPRATROPIUM 3 ML (DUONEB) VIAL INH PRN ×2 (04:45)
[2023-03-15 04:58] LABS: POTASSIUM 3.6 MMOL/L (3.6-5.0)
[2023-03-15 05:00] LABS: TOTAL PROTEIN 3.8 GM/DL (6.4-8.2)
[2023-03-15 05:02] LABS: BILIRUBIN,TOTAL 1.8 MG/DL (0.1-1.0)
[2023-03-15 05:04] LABS: CREATININE SERUM 0.64 MG/DL (0.60-1.30)
[2023-03-15] MEDS: fentaNYL INJ 100 MCG/2 ML AMP IVP PRN ×2 (05:11→11:49)
[2023-03-15 05:28] LABS: INR 5.4 (0.8-1.4); PROTHROMBIN TIME PATIENT 47.8 SEC (12.2-14.7)
[2023-03-15 05:42] LABS: ALBUMIN 1.5 GM/DL (3.2-4.5); MAGNESIUM 1.2 MG/DL (1.6-2.4)
[2023-03-15] MEDS: MAGNESIUM 1 GM/100 ML IVPB 100 ML IV SCH ×7 (05:46→12:30)
[2023-03-15] MEDS: KCL 20 MEQ TAB (K-DUR) PO SCH (05:49)
[2023-03-15] MEDS ORDERED: LACTATED RINGERS 1,000 ML IV SCH (06:00)
[2023-03-15] MEDS ORDERED: MAGNESIUM 1 GM/100 ML IVPB 100 ML IV SCH (06:00)
[2023-03-15] MEDS: POTASSIUM CL 10MEQ/50ML IVPB 50 ML IV SCH ×5 (06:21→10:45)
[2023-03-15] MEDS: POTASSIUM BICARB 20 MEQ (EFFER-K) TABLET PO ONE ×2 (06:24→06:30)
[2023-03-15] MEDS ORDERED: POTASSIUM BICARB 20 MEQ (EFFER-K) TABLET PO ONE (06:30)
[2023-03-15] MEDS: LACTATED RINGERS 1,000 ML IV SCH (08:17)
--- NOTE | 2023-03-15 08:44 | Tele-ICU Progress Note ---
Subjective Date Seen by a Provider: Mar 15, 2023 Time Seen by a Provider: 08:43 Subjective/Events-last exam (Tele-ICU Physician , Progress Note ) Service provided via interactive audio and video telecommunications E-CARE system to a patient admitted to ICU bed in [facility]. Patient is seen today due to persistent need of ICU care Available chart/ vitals / labs / Images reviewed Video assessment done using teleICU camera, rest of exam as per RN Discussed with RN Events overnight : Afebrile hemodynamically stable Respiratory - 35% I/O =POS 2L Drips: Pressors- no VENT SETTINGS and ABG reviewed NOT CANDIDATE for SBTreviewed possible contraindications including Cardiovascular Stability /Sedation Score / FI02/PEEP / ABG / CXR/ secretions Sedation, discussed with RN, RASS - 2 versed 810, precedex1.5 , fentanyl 300 Hospital course: 03/13- 41 y/o F with no significant PMHx who presented to ED with c/o heavy alcohol use concerned about possible seizure at home. In ER noted to have progressively worsening agitation and was combative. INTUVBATED 03/14- PRVC 400/120/435/5, on versed 8 , precedex1.5 , fentanyl 200 , no Sz 03/15- PRVC 16 450 +5 35 % on versed 810, precedex1.5 , fentanyl 300 , no Sz A/P Acute respiratory failure 2/2 AMS requiring airway protection -Intubated 03/13 PRVC 16 450 +5 35 % - minimal secretions , sputum from ETT - usual floura 03/13 -Will cont to wean vent as tolerated. FEVER 03/14 - cx blood done , sputum from ETT - usual floura 03/13 - to repeat cxr Alcohol withdrawal: -Intubated for severe agitation -versed 810, precedex1.5 , fentanyl 300 , Off propofol given elevated TG 166 on admission. prn Ativan - thiamine , folate -add phenobarb for 2 days 03/14- possible seizure - suspected due to ETOH withdrawal - benzo pen , no AED Hypokalemia: / hypophos -replacing Transaminitis- improving - US RUQ: Hepatomegaly with diffuse steatosis.No sonographic features of cirrhosis --ammonia and coags WNL Anemia - delutional -monitor Thrombocytopenia - presumed due to ETON , rosi ON HOLD Lines : PICC 03/14 LEFT , (Central Line Necessity Reviewed) Diane: + Nutrition: to start TF VTE Prophylaxis: rosi ON HOLD with thrombocytopenia Stress Ulcer Prophylaxis: Protonix Plans in collaboration with bedside consultants and IM MDs. Discussed with RN to reach out if any questions or concerns Case and care daily discussed on multidisciplinary rounds ( RN, PharmD, Hot Metal Mixer Operator , Respiratory Therapy, hot iron worker ) A total of 32 minutes of critical care time was devoted to this patient today, required to treat and/or prevent further deterioration of critical care condition ( as above ) I am remotely monitoring this patient from another state. I am unable to do the bedside exam, and history/physical and pertinent information is taken from other notes in the computer and bedside staff. Sepsis Event Evaluation Height, Weight, BMI Height: 5'3.00" Weight: 140lbs. 0.0oz. 63.483548zo; 24.90 BMI Method:Stated Focused Exam Lactate Level 03/14/23 17:15: Lactic Acid Level 1.61 Time of Focused Exam: 19:25 Exam Exam Patient acknowledged, consented, and participated in this virtual visit which was conducted using real time audio/video Vital Signs Date Time Temp Pulse Resp B/P (MAP) Pulse Ox O2 Delivery O2 Flow Rate FiO2 03/15/23 08:00 77 96/46 (73) 100 Nasal Cannula 3.00 03/15/23 07:24 35.9 03/15/23 07:00 89 03/15/23 07:00 87 113/78 (98) 96 Nasal Cannula 3.00 03/15/23 06:17 98 Nasal Cannula 3.00 03/15/23 06:00 103 106/59 (75) 100 Nasal Cannula 3.00 03/15/23 05:00 170 110/60 (77) 100 Nasal Cannula 3.00 03/15/23 04:30 35.3 88 18 100 Nasal Cannula 3.00 03/15/23 04:24 100 Nasal Cannula 3.00 03/15/23 04:15 91 20 127/72 (101) 100 Nasal Cannula 3.00 03/15/23 04:05 99 Nasal Cannula 3.00 03/15/23 04:00 86 20 125/67 (83) 100 Nasal Cannula 2.00 03/15/23 03:45 79 20 95/66 (86) 100 Nasal Cannula 2.00 03/15/23 03:30 78 16 101/61 (76) 100 Nasal Cannula 2.00 03/15/23 03:15 73 15 115/56 (75) 100 Nasal Cannula 2.00 03/15/23 03:00 73 15 108/52 (74) 100 Nasal Cannula 2.00 03/15/23 02:45 78 15 112/59 (82) 100 Nasal Cannula 2.00 03/15/23 02:30 75 88/55 (67) 98 Nasal Cannula 2.00 03/15/23 02:15 75 16 96/51 (65) 100 Nasal Cannula 2.00 03/15/23 02:00 80 107/78 (93) 92 Nasal Cannula 2.00 03/15/23 01:45 80 18 118/108 (111) 99 Nasal Cannula 2.00 03/15/23 01:30 75 89/45 (61) 100 Nasal Cannula 2.00 03/15/23 01:15 79 100 Nasal Cannula 2.00 03/15/23 01:00 81 03/15/23 01:00 82 117/53 (76) 100 Nasal Cannula 2.00 03/15/23 00:45 35.8 77 100 Nasal Cannula 2.00 03/15/23 00:30 79 97/85 (92) 100 Nasal Cannula 2.00 03/15/23 00:00 86 108/63 (73) 99 Nasal Cannula 2.00 03/14/23 23:57 98 Nasal Cannula 2.00 03/14/23 23:45 82 100 Nasal Cannula 2.00 03/14/23 23:30 86 105/54 (76) 100 Nasal Cannula 2.00 03/14/23 23:15 87 93 Nasal Cannula 2.00 03/14/23 23:10 36.3 03/14/23 23:00 89 113/64 (80) 100 Nasal Cannula 2.00 03/14/23 22:20 87 18 120/75 (88) 92 Nasal Cannula 2.00 03/14/23 22:15 90 18 100 Nasal Cannula 2.00 03/14/23 22:10 96 121/60 (79) 91 Nasal Cannula 2.00 03/14/23 22:00 85 16 108/55 (85) 100 Nasal Cannula 2.00 03/14/23 21:51 90 03/14/23 21:50 36.3 89 16 103/57 (69) 100 Nasal Cannula 2.00 03/14/23 21:45 93 03/14/23 21:43 117/63 (95) 03/14/23 21:00 100 28 03/14/23 20:47 95 25 101/63 100 Room Air 03/14/23 20:11 21 03/14/23 19:30 Nasal Cannula 1.50 03/14/23 17:05 101 32 104/61 (75) 100 I & O 03/15/23 07:00 Intake Total 1425 ml Output Total 50 ml Balance 1375 ml Height & Weight Height: 5'3.00" Weight: 140lbs. 0.0oz. 63.665847pz; 24.90 BMI Method:Stated General Appearance: Chronically ill, Mild Distress, Other (Ill-appearing) HEENT: PERRL/EOMI, Other (Drainage from right TM with opacity to the right TM noted. Left TM normal) Neck: Non Tender, Supple Respiratory: Lungs Clear, Other (Increased expiratory effort with slightly prolonged expiratory phase) Cardiovascular: Regular Rate, Rhythm, No Edema, No Murmur Capillary Refill: Less Than 3 Seconds Extremity: Pedal Edema (2+ bilateral), Other (Mild edema noted to bilateral hands and distal arms) Neurologic/Psychiatric: Other (Awake and very hard of hearing and does answer some questions but seems confused to situation and time) Skin: Pallor Results Lab Laboratory Tests 03/14/23 17:15 03/15/23 04:28 Assessment/Plan Assessment/Plan 1 LETICIA KAPADIA MD Mar 15, 2023 08:44
[2023-03-15] MEDS ORDERED: ALBUMIN 25% 25 GM/100 ML 100 ML IV ONE (08:45)
[2023-03-15] MEDS ORDERED: ALBUMIN 5% 12.5 GM/250 ML 250 ML IV ONE (08:45)
[2023-03-15] MEDS: LINEZOLID IVPB 300 ML IV SCH ×2 (09:02→22:04)
[2023-03-15] MEDS: DOCUSATE SODIUM 100 MG (COLACE) CAP PO SCH ×2 (09:02→21:00)
[2023-03-15] MEDS: SENNOSIDES 8.6 MG (SENOKOT) TAB PO SCH ×2 (09:03→21:00)
--- NOTE | 2023-03-15 09:58 | Tele-ICU Progress Note ---
Subjective Date Seen by a Provider: Mar 15, 2023 Time Seen by a Provider: 09:57 Subjective/Events-last exam (Tele-ICU Physician , Progress Note ) Service provided via interactive audio and video telecommunications E-CARE system to a patient admitted to ICU bed in [facility]. Patient is seen today due to persistent need of ICU care Available chart/ vitals / labs / Images reviewed Video assessment done using teleICU camera, rest of exam as per RN Discussed with RN Events overnight : Afebrile hemodynamically stable Respiratory - 3l I/O =pos Drips: Pressors- no Hospital course: (03.14) Admitted a 77y/o with sepsis (recurrent UTI) and possible PNA A/P Impression 1. Recurrent urinary tract infection- ? previous cx results / sens 2. Sepsis syndrome with metabolic encephalopathy 3. Elevated INR due to sepsis and Eliquis. 4. Anemia , Hb 7.6 this am - presumed delutional 5. Oliguria 6. Malnitrision , hypoalbuminemia 7. recent Acute DVT/PE. - transferred to [facility] in [place] for clot retrieval in [place] Recommendations 1. Broad-spectrum antibiotics with IV Zosyn and linezolid and IV Zosyn fas or primary care physician 2. follow elevated INR, no bleed - prbably cam hold on Vit K 3. albumin transfusion for oliguria in face of periferal edema and unrespmsive to IV boluses last night 4. follow mwnttal status - improving Lines : PICC recently removed , (Central Line Necessity Reviewed) Diane: + - chronic ? OG: Nutrition: Analgesia: Anxiety/ delirium VTE Prophylaxis: NA - coagulopathy Stress Ulcer Prophylaxis: Plans in collaboration with bedside consultants and IM MDs. Discussed with RN to reach out if any questions or concerns Case and care daily discussed on multidisciplinary rounds ( RN, PharmD, Supervisor [employer] , Respiratory Therapy, family support worker ) A total of 20 minutes of critical care time was devoted to this patient today, required to treat and/or prevent further deterioration of critical care condition ( as above ) . I am remotely monitoring this patient from another state. I am unable to do the bedside exam, and history/physical and pertinent information is taken from other notes in the computer and bedside staff. Sepsis Event Evaluation Height, Weight, BMI Height: 5'3.00" Weight: 140lbs. 0.0oz. 63.991917sj; 24.90 BMI Method:Stated Focused Exam Lactate Level 03/14/23 17:15: Lactic Acid Level 1.61 Time of Focused Exam: 19:25 Exam Exam Patient acknowledged, consented, and participated in this virtual visit which was conducted using real time audio/video Vital Signs Date Time Temp Pulse Resp B/P (MAP) Pulse Ox O2 Delivery O2 Flow Rate FiO2 03/15/23 09:00 87 104/68 (74) 100 Nasal Cannula 3.00 03/15/23 08:00 77 96/46 (73) 100 Nasal Cannula 3.00 03/15/23 07:24 35.9 03/15/23 07:00 89 03/15/23 07:00 87 113/78 (98) 96 Nasal Cannula 3.00 03/15/23 06:17 98 Nasal Cannula 3.00 03/15/23 06:00 103 106/59 (75) 100 Nasal Cannula 3.00 03/15/23 05:00 170 110/60 (77) 100 Nasal Cannula 3.00 03/15/23 04:30 35.3 88 18 100 Nasal Cannula 3.00 03/15/23 04:24 100 Nasal Cannula 3.00 03/15/23 04:15 91 20 127/72 (101) 100 Nasal Cannula 3.00 03/15/23 04:05 99 Nasal Cannula 3.00 03/15/23 04:00 86 20 125/67 (83) 100 Nasal Cannula 2.00 03/15/23 03:45 79 20 95/66 (86) 100 Nasal Cannula 2.00 03/15/23 03:30 78 16 101/61 (76) 100 Nasal Cannula 2.00 03/15/23 03:15 73 15 115/56 (75) 100 Nasal Cannula 2.00 03/15/23 03:00 73 15 108/52 (74) 100 Nasal Cannula 2.00 03/15/23 02:45 78 15 112/59 (82) 100 Nasal Cannula 2.00 03/15/23 02:30 75 88/55 (67) 98 Nasal Cannula 2.00 03/15/23 02:15 75 16 96/51 (65) 100 Nasal Cannula 2.00 03/15/23 02:00 80 107/78 (93) 92 Nasal Cannula 2.00 03/15/23 01:45 80 18 118/108 (111) 99 Nasal Cannula 2.00 03/15/23 01:30 75 89/45 (61) 100 Nasal Cannula 2.00 03/15/23 01:15 79 100 Nasal Cannula 2.00 03/15/23 01:00 81 03/15/23 01:00 82 117/53 (76) 100 Nasal Cannula 2.00 03/15/23 00:45 35.8 77 100 Nasal Cannula 2.00 03/15/23 00:30 79 97/85 (92) 100 Nasal Cannula 2.00 03/15/23 00:00 86 108/63 (73) 99 Nasal Cannula 2.00 03/14/23 23:57 98 Nasal Cannula 2.00 03/14/23 23:45 82 100 Nasal Cannula 2.00 03/14/23 23:30 86 105/54 (76) 100 Nasal Cannula 2.00 03/14/23 23:15 87 93 Nasal Cannula 2.00 03/14/23 23:10 36.3 03/14/23 23:00 89 113/64 (80) 100 Nasal Cannula 2.00 03/14/23 22:20 87 18 120/75 (88) 92 Nasal Cannula 2.00 03/14/23 22:15 90 18 100 Nasal Cannula 2.00 03/14/23 22:10 96 121/60 (79) 91 Nasal Cannula 2.00 03/14/23 22:00 85 16 108/55 (85) 100 Nasal Cannula 2.00 03/14/23 21:51 90 03/14/23 21:50 36.3 89 16 103/57 (69) 100 Nasal Cannula 2.00 03/14/23 21:45 93 03/14/23 21:43 117/63 (95) 03/14/23 21:00 100 28 03/14/23 20:47 95 25 101/63 100 Room Air 03/14/23 20:11 21 03/14/23 19:30 Nasal Cannula 1.50 03/14/23 17:05 101 32 104/61 (75) 100 I & O 03/15/23 07:00 Intake Total 1425 ml Output Total 50 ml Balance 1375 ml Height & Weight Height: 5'3.00" Weight: 140lbs. 0.0oz. 63.414951ie; 24.90 BMI Method:Stated General Appearance: Chronically ill, Mild Distress, Other (Ill-appearing) HEENT: PERRL/EOMI, Other (Drainage from right TM with opacity to the right TM noted. Left TM normal) Neck: Non Tender, Supple Respiratory: Lungs Clear, Other (Increased expiratory effort with slightly prolonged expiratory phase) Cardiovascular: Regular Rate, Rhythm, No Edema, No Murmur Capillary Refill: Less Than 3 Seconds Extremity: Pedal Edema (2+ bilateral), Other (Mild edema noted to bilateral hands and distal arms) Neurologic/Psychiatric: Other (Awake and very hard of hearing and does answer some questions but seems confused to situation and time) Skin: Pallor Results Lab Laboratory Tests 03/14/23 17:15 03/15/23 04:28 Assessment/Plan Assessment/Plan 1 LETICIA KAPADIA MD Mar 15, 2023 09:57
[2023-03-15] MEDS ORDERED: LORazepam INJ 2 MG/ML (ATIVAN) VIAL ONE (12:11)
[2023-03-15] MEDS ORDERED: LORazepam INJ 2 MG/ML (ATIVAN) VIAL IVP ONE (12:30)
--- NOTE | 2023-03-15 14:29 | CONSULTATION REPORT ---
DATE OF SERVICE: 03/15/2023 ATTENDING PRIMARY CARE PHYSICIAN: Tim Michael MD. ADMITTING PHYSICIAN: Dr. Lentz. HISTORY OF PRESENT ILLNESS: The patient is a 77-year-old female with multiple medical problems. She was brought by EMS from an extended care facility today due to labored breathing or darkening of urine as well as overall failure to thrive. She was discharged from [facility] just the day previous for issues pertaining to bilateral lower extremity DVTs as well as urinary tract infection. She did have a PICC line; however, was removed just yesterday. The patient was found to have a significant urinary tract infection, pneumonia, as well as hypotension. The patient has extremely poor peripheral circulation. She also is on anticoagulation due to her recent deep vein thromboses. She does have significantly elevated coagulation factors with initial INR of 6.0 and a second being 5.4. Due to her bleeding risk, she will need a central venous catheter for IV fluids, antibiotics as well as possible pressors; however, this needs to be in an area much easier to compress in the case of bleeding and we will proceed with placement of a central venous catheter in the femoral vein. This will then be removed once a PICC line is placed in approximately 36 hours. PAST MEDICAL HISTORY: Recurrent urinary tract infection, hypertension, pneumonia, COPD, asthma, supraventricular tachycardia, dementia, renal failure, gastroesophageal reflux disease, degenerative joint disease, history of bilateral lower extremity DVT. PAST SURGICAL HISTORY: Appendectomy, right humeral ORIF, right foot surgery. ALLERGIES: CODEINE, GATIFLOXACIN, NITROFURANTOIN. MEDICATIONS: Albuterol 1 puff q.i.d., aspirin 325 mg daily, diltiazem 240 mg daily, guaifenesin 1200 mg b.i.d., heparin 5000 units every 12 hours, hydroxyzine 10 mg p.r.n., lisinopril 10 mg daily, lorazepam 0.5 mg t.i.d. p.r.n., montelukast 10 mg daily, Protonix 40 mg daily, sertraline 50 mg daily, trazodone 50 mg each day at bedtime, umeclidinium bromide 62.5 mcg daily, previously on Eliquis 5 mg b.i.d. SOCIAL HISTORY: Unknown. FAMILY HISTORY: Noncontributory. VITAL SIGNS: Temperature 35.8, blood pressure 104/53, pulse 84, respirations 18, pulse ox 100% on 3 liters nasal cannula. REVIEW OF SYSTEMS: This is an elderly female, who is confused and edematous. She is responsive; however, incoherent. It does not appear that, at this time, she has any labored breathing or any cough or sputum production. No known chest discomfort. No nausea, vomiting, unknown bowel function history. The patient's blood pressure has been running low with a systolic in the 100s. No known recent inadvertent weight loss. PHYSICAL EXAMINATION: CHEST: Scattered wheezes and rhonchi bilaterally. HEART: Regular. No murmurs. EXTREMITIES: +2/3 bilateral lower extremity and upper extremity edema. Negative Homans sign. HEENT: No scleral icterus. No cervical lymphadenopathy. ABDOMEN: Soft, mildly distended, no tenderness. SKIN: Warm, dry. LABORATORY DATA: WBC 14.4, hemoglobin 7.6, hematocrit 23, platelets 290. BUN 17, creatinine 0.64. Previous INR 6.0 with a second done this morning at 5.4. ASSESSMENT AND PLAN: A 77-year-old female with history of bilateral leg DVT and on anticoagulation with sepsis due to urinary tract infection and pneumonia with hypotension. The patient at this time is a full code and she will require IV fluids, antibiotics as well as other IV therapies and has extremely poor peripheral venous circulation and will need central venous catheter. However, due to her severely elevated INR, we will place this in a compressible area, which would be the femoral region. We will then consult for PICC line in approximately 24 to 36 hours and remove the femoral line. Job ID: [id number] DocumentID: [id number] Dictated Date: 03/15/2023 12:44:49 Affirmative Action Specialist Date: 03/15/2023 14:28:00 Dictated By: ERROL ROSADO MD [facility]
--- NOTE | 2023-03-15 15:38 | History & Physical-Hospitalist ---
History of Present Illness HPI/Chief Complaint Cathleen Kay is a 77 year old female with PMH HTN, asthma, SVT, COPD, chronic respiratory failure with hypoxia, DVT/PE, who presented with altered mental status. She has been confused and weak for quite a while according to family. She is able to wake up and answer questions appropriately for me. She is hard of hearing. She denies pain. She has had recurrent illnesses and hospitalizations since December. At that time, she was hospitalized at [facility] with respiratory failure. An extensive workup was unrevealing for the cause of her respiratory failure so she was transferred to [facility] in [place]. She was eventua lly found to have Pseudomonas pneumonia and cavitary abscess. She was treated with Cefepime. Upon discharge, she came to the inpatient rehab unit at [facility]. She was unable to tolerate the therapy and was discharged to [facility]. Hospice was recommended at that time. Her daughter did not think she was getting the therapy she needed so she discharged her and took her home. According to family, she continued to worsen at home. She was taken to the ER on 03/01 and she was treated for dehydration. A UA at that time ended up growing VRE. There was a hospice evaluation scheduled for the following Friday according to the ER note. She returned to the ER on 03/03 and was found to have a DVT/PE. She was transferred to [facility] on 03/04 for thrombectomy. She had continued confusion and weakness according to family. A UA was evantually checked and she was found to have VRE. She was given one dose of IV Linezolid prior to discharge. She was discharged to [facility] on oral Linezolid. She was quickly sent to the ER due to poor condition and the family was reportedly told that she may be needing end of life care. She was brought to the [facility] ER and admitted with sepsis due to UTI. Source: patient, family Exam Limitations: clinical condition Date Seen 03/15/23 Time Seen by a Provider: 10:50 Attending Physician Tim Michael MD PCP Admitting Physician: Christa Keating MD Attending Physician: Christa Keating MD Referring Physician Date of Admission Mar 14, 2023 at 20:43 Home Medications & Allergies Home Medications Reviewed patient Home Medication Reconciliation performed by pharmacy medication reconciliations biomedical instrument technician and/or nursing. Patients Allergies have been reviewed. Allergies Allergies Coded Allergies codeine (Verified Allergy, Unknown, 03/23/08) gatifloxacin (Verified Allergy, Unknown, 03/23/08) nitrofurantoin (Verified Allergy, Unknown, 03/23/08) Past [id number] Hx Patient Social History Tobacco Use?: No Substance use?: No Alcohol Use?: No Pt feels they are or have been: No Immunizations Up To Date First/Initial COVID19 Vaccinat: YES Second COVID19 Vaccination Alirio: YES Tetanus Booster (TDap): Unknown Hepatitis A: Yes Hepatitis B: Yes PED Vaccines UTD: Yes Seasonal Allergies Seasonal Allergies: Yes Current Status Advance Directives: Unable to obtain Communicates: Verbally Primary Language: Cypriot Preferred Spoken Language: Cypriot Is interpretation needed?: No Sensory deficits: Hearing impairment Past Medical History Surgeries: Appendectomy Asthma, Pulmonary Embolism, COPD Currently Using CPAP: No Currently Using BIPAP: No 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, 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 Sexually Transmitted Disease: No Renal Failure Gastroesophageal Reflux Arthritis, Fractures Anxiety, Depression Blood Disorders: No Family Medical History Reviewed Nursing Family Hx Dementia 19 MOTHER, , Age:88, Onset:60 years & older FH: CAD (coronary artery disease) 19 FATHER, , Age:64, Onset:60 years & older FH: CHF (congestive heart failure) 19 MOTHER, , Age:88, Onset:60 years & older Myocardial infarction 19 MOTHER, , Age:88, Onset:50's - 60 No Family History of: AIDS Abdominal aortic aneurysm Warren's disease Alcoholism Alzheimer's disease Aphasia Arthritis Asthma Cancer of mouth Cardiovascular disease Cataracts Colon cancer Completed stroke Congenital disease Congenital heart disease Coronary thrombosis Cystic fibrosis Deafness or hearing loss Diabetes mellitus Drug abuse Dysphasia Fibrocystic disease of breast Gastroenteritis Glaucoma Headache disorder Hypercholesterolemia 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 Infertility Kidney disease Neoplasm Not obtainable due to adoption Osteoporosis Parkinson's disease Prostate cancer Psychosocial problem Respiratory disorder Seizure disorder Severe allergy Thyroid disease Tuberculosis Visual disorder Heart Disease, Diabetes, 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 Review of Systems Constitutional: weakness Respiratory: no symptoms reported Cardiovascular: no symptoms reported Gastrointestinal: no symptoms reported Genitourinary: decreased output Physical Exam Physical Exam Vital Signs Vital Signs - First Documented 03/14/23 03/14/23 03/14/23 03/14/23 17:05 19:30 20:11 21:50 Temp 36.3 Pulse 101 Resp 32 B/P (MAP) 104/61 (75) Pulse Ox 100 O2 Delivery Nasal Cannula O2 Flow Rate 1.50 FiO2 21 Capillary Refill : Less Than 3 Seconds Height, Weight, BMI Height: 5'3.00" Weight: 140lbs. 0.0oz. [id number]; 24.90 BMI Method:Stated General Appearance: No Apparent Distress, Chronically ill HEENT: PERRL/EOMI, Pharynx Normal Neck: Normal Inspection Respiratory: Lungs Clear, No Respiratory Distress Cardiovascular: Regular Rate, Rhythm, No Murmur Gastrointestinal: Normal Bowel Sounds, Non Tender, Soft Extremity: No Inflammation; Pedal Edema Neurologic/Psychiatric: Alert, Oriented x3, Motor Weakness Skin: Warm/Dry, Pallor Results Results/Procedures Labs Laboratory Tests 03/14/23 17:15 03/15/23 04:28 Patient resulted labs reviewed. Imaging: Reviewed Imaging Report Assessment/Plan Admission Diagnosis Sepsis due to UTI Admission Status: Inpatient Order (span 2 midnights) Reason for Inpatient Admission: IV antibiotics Assessment and Plan Severe sepsis due to UTI VRE infection Septic encephalopathy Recent Pseudomonas pneumonia and lung abscess SIRS+ with leukocytosis, tachycardia, tachypnea Recent urine culture with VRE UA consistent with UTI Started on Linezolid and Merrem TeleICU consulted Debility Recurrent hospitalizations Severe protein calorie malnutrition Hypoalbuminemia Poor prognosis Goals of care discussion Palliative care consulted PT/OT Albumin Ensure Remeron Dietary consult Discussed code status, family to consider DVT/PE Lovenox COPD/Asthma Chronic respiratory failure with hypoxia HTN Hold antihypertensives MAT protocol Critical Care Critically Ill Patient Diagnosis/Problems Diagnosis/Problems (1) Sepsis Status: Acute Qualifiers: Sepsis type: sepsis due to unspecified organism Sepsis acute organ d ysfunction status: with acute organ dysfunction Severe sepsis acute organ dys function type: encephalopathy Severe sepsis shock status: without septic shock Qualified Codes: A41.9 - Sepsis, unspecified organism; R65.20 - Severe sepsis without septic shock; G93.40 - Encephalopathy, unspecified (2) Urinary tract infection Status: Acute Qualifiers: Urinary tract infection type: catheter-associated UTI Indwelling urinary catheter type: indwelling urethral catheter Encounter type: initial encounter Qualified Codes: T83.511A - Infection and inflammatory reaction due to indwelling urethral catheter, initial encounter; N39.0 - Urinary tract infection, site not specified (3) VRE (vancomycin-resistant Enterococci) infection Status: Acute (4) Septic encephalopathy Status: Acute (5) Debility Status: Acute (6) Severe protein-calorie malnutrition Status: Acute (7) Venous thromboembolism (VTE) present on admission Status: Acute (8) History of recent hospitalization Status: Acute (9) Goals of care, counseling/discussion CHRISTA KEATING MD Mar 15, 2023 15:38
[2023-03-15] MEDS: ALBUMIN 25% 25 GM/100 ML 100 ML IV SCH (16:25)
--- NOTE | 2023-03-15 18:09 | OPERATIVE REPORT ---
DATE OF SERVICE: 03/15/2023 ATTENDING PRIMARY CARE PHYSICIAN: Dr. Tim Michael. PREOPERATIVE DIAGNOSES: Sepsis, urinary tract infection, pneumonia, recent history of DVT, hypotension. POSTOPERATIVE DIAGNOSES: Sepsis, urinary tract infection, pneumonia, recent history of DVT, hypotension. PROCEDURE: Placement of left femoral central venous catheter. SURGEON: Errol Rosado MD ANESTHESIA: Local. ESTIMATED BLOOD LOSS: Minimal. DISPOSITION: The patient tolerated the procedure well. INDICATIONS: The patient is a 77-year-old female with multiple medical problems. She was just recently discharged from [facility] due to bilateral lower extremity deep vein thromboses and was heavily anticoagulated. She was discharged to an extended care facility yesterday; however, she had recurrent issues with shortness of breath, fatigue and overall failure to thrive. The patient at this time is still a full code and is not found to be hypotensive and will need continued IV support including fluids, antibiotics and possible pressors. She has a significantly elevated INR due to previous anticoagulation and due to this, she needs access of ease of compressibility which would be the femoral vein, which we will temporarily placed. DESCRIPTION OF PROCEDURE: The left groin was prepped and draped in standard surgical fashion. 1% lidocaine was then used to anesthetize the overlying skin and the inguinal region. The left femoral vein was then cannulated with drawing of venous blood. A guidewire was inserted without any resistance. Cannulating needle removed and a small skin incision made using 11 blade and a tract created using a venous dilator and through this opening, a triple lumen central venous catheter was placed over the guidewire using the Seldinger technique and the guidewire removed. All 3 ports gayathri venous blood and saline pushed in without any resistance. Catheter was then cleaned and covered with Op-Site. The patient tolerated the procedure well. We will continue with IV support for now and once she does have a PICC line in an approximately hours, we will recommend removal of the femoral catheter. Job ID: [id number] DocumentID: [id number] Dictated Date: 03/15/2023 12:50:12 Attendance Officer Date: 03/15/2023 18:06:00 Dictated By: ERROL ROSADO MD
[2023-03-15] MEDS: MIRTAZAPINE 15 MG (REMERON) TAB PO SCH (22:04)
[2023-03-16] MEDS: ALBUMIN 25% 25 GM/100 ML 100 ML IV SCH ×4 (01:00→23:35)
[2023-03-16] MEDS: fentaNYL INJ 100 MCG/2 ML AMP IVP PRN ×4 (02:18→22:47)
[2023-03-16] MEDS: PIPERACILLIN SODIUM/TAZOBACTAM 4.5 GM in NS (IVPB) 100 ML IV SCH ×3 (05:00→20:20)
[2023-03-16 05:28] LABS: BASOPHILS % (AUTO) 0 % (0-10); EOSINOPHILS # (AUTO) 0.2 10^3/uL (0.0-0.3); EOSINOPHILS % (AUTO) 2 % (0-10); LYMPHOCYTES # (AUTO) 0.9 10^3/uL (1.0-4.0); LYMPHOCYTES % (AUTO) 10 % (12-44); MEAN CORPUSCULAR HEMOGLOBIN 32 pg (25-34); MEAN CORPUSCULAR HGB CONC 32 g/dL (32-36); MEAN CORPUSCULAR VOLUME 99 fL (80-99); MEAN PLATELET VOLUME 9.8 fL (9.0-12.2); MONOCYTES # (AUTO) 0.6 10^3/uL (0.0-1.0); MONOCYTES % (AUTO) 7 % (0-12); NEUTROPHILS # (AUTO) 6.4 10^3/uL (1.8-7.8); NEUTROPHILS % (AUTO) 75 % (42-75); PLATELET COUNT 203 10^3/uL (130-400); WHITE BLOOD COUNT 8.5 10^3/uL (4.3-11.0)
[2023-03-16 05:38] LABS: HEMATOCRIT 20 % (35-52); HEMOGLOBIN 6.3 g/dL (11.5-16.0)
[2023-03-16 05:41] LABS: ALBUMIN 2.5 GM/DL (3.2-4.5); POTASSIUM 3.4 MMOL/L (3.6-5.0)
[2023-03-16 05:42] LABS: CALCIUM 7.5 MG/DL (8.5-10.1)
[2023-03-16 05:44] LABS: TOTAL PROTEIN 4.1 GM/DL (6.4-8.2)
[2023-03-16 05:45] LABS: BILIRUBIN,TOTAL 2.4 MG/DL (0.1-1.0)
[2023-03-16 05:47] LABS: CREATININE SERUM 0.58 MG/DL (0.60-1.30)
[2023-03-16 05:50] LABS: MAGNESIUM 2.1 MG/DL (1.6-2.4)
[2023-03-16] MEDS: POTASSIUM CL 10MEQ/50ML IVPB 50 ML IV SCH ×5 (05:53→08:29)
[2023-03-16] MEDS: MAGNESIUM 1 GM/100 ML IVPB 100 ML IV SCH (05:53)
[2023-03-16] MEDS: KCL 20 MEQ TAB (K-DUR) PO SCH (05:53)
[2023-03-16 06:14] LABS: INR 5.4 (0.8-1.4); PROTHROMBIN TIME PATIENT 47.8 SEC (12.2-14.7)
[2023-03-16] MEDS: RT-ALBUTEROL/IPRATROPIUM 3 ML (DUONEB) VIAL INH SCH ×4 (06:59→21:07)
[2023-03-16] MEDS ORDERED: NS IV 500 ML 500 ML IV SCH ×2 (07:15)
[2023-03-16] MEDS: LINEZOLID IVPB 300 ML IV SCH ×2 (08:27→21:05)
--- NOTE | 2023-03-16 08:47 | Tele-ICU Progress Note ---
Progress Note video rounds completed 77 y/o female with a hx of COPD, admitted with AMS and PE, Psudomonas PNA and VRE UTI Overall improved on antibiotics All VSS IMP: PNA, UTI, Sepsis PLAN: continue present antibiotic regimin I am remotely monitoring this patient from another state. I am unable to do the bedside exam, and history/physical and pertinent information is taken from other notes in the computer and bedside staff. Focused Exam Lactate Level 03/14/23 17:15: Lactic Acid Level 1.61 Height, Weight, BMI Height: 5'3.00" Weight: 140lbs. 0.0oz. 63.171861wu; 25.23 BMI Method:Stated Time of Focused Exam: 19:25 Labs Laboratory Tests 03/16/23 05:15 Results Results/Procedures Labs Laboratory Tests 03/14/23 17:15 03/15/23 04:28 03/16/23 05:15 Patient resulted labs reviewed. Imaging: Reviewed Imaging Report Results Labs Labs Laboratory Tests 03/15/23 16:39: 03/16/23 05:15: White Blood Count 8.5, Red Blood Count 1.99L, Hemoglobin 6.3*L, Hematocrit 20*L, Mean Corpuscular Volume 99, Mean Corpuscular Hemoglobin 32, Mean Corpuscular Hemoglobin Concent 32, Red Cell Distribution Width 17.4H, Platelet Count 203, Mean Platelet Volume 9.8, Immature Granulocyte % (Auto) 5, Neutrophils (%) (Auto) 75, Lymphocytes (%) (Auto) 10L, Monocytes (%) (Auto) 7, Eosinophils (%) (Auto) 2, Basophils (%) (Auto) 0, Neutrophils # (Auto) 6.4, Lymphocytes # (Auto) 0.9L, Monocytes # (Auto) 0.6, Eosinophils # (Auto) 0.2, Basophils # (Auto) 0.0, Immature Granulocyte # (Auto) 0.5H, Prothrombin Time 47.8*H, INR Comment 5.4*H, Sodium Level 140, Potassium Level 3.4L, Chloride Level 111H, Carbon Dioxide Level 22, Anion Gap 7, Blood Urea Nitrogen 10, Creatinine 0.58L, Estimat Glomerular Filtration Rate 93, BUN/Creatinine Ratio 17, Glucose Level 100, Calcium Level 7.5L, Corrected Calcium 8.7, Magnesium Level 2.1, Total Bilirubin 2.4H, Aspartate Amino Transf (AST/SGOT) 41H, Alanine Aminotransferase (ALT/SGPT) 32, Alkaline Phosphatase 215H, Total Protein 4.1L, Albumin 2.5L Microbiology 03/14/23 MRSA Screen - Final, Complete MRSA not isolated 03/14/23 Blood Culture - Preliminary, Resulted No growth 03/14/23 Urine Culture - Preliminary, Resulted Probable Enterococcus Species YEAST Meds/Labs/Orders Lab results: Laboratory Tests Test 03/15/23 16:39 03/16/23 05:15 Range/Units White Blood Count 8.5 4.3-11.0 10^3/uL Red Blood Count 1.99 L 3.80-5.11 10^6/uL Hemoglobin 6.3 *L 11.5-16.0 g/dL Hematocrit 20 *L 35-52 % Mean Corpuscular Volume 99 80-99 fL Mean Corpuscular Hemoglobin 32 25-34 pg Mean Corpuscular Hemoglobin Concent 32 32-36 g/dL Red Cell Distribution Width 17.4 H 10.0-14.5 % Platelet Count 203 130-400 10^3/uL Mean Platelet Volume 9.8 9.0-12.2 fL Immature Granulocyte % (Auto) 5 % Neutrophils (%) (Auto) 75 42-75 % Lymphocytes (%) (Auto) 10 L 12-44 % Monocytes (%) (Auto) 7 0-12 % Eosinophils (%) (Auto) 2 0-10 % Basophils (%) (Auto) 0 0-10 % Neutrophils # (Auto) 6.4 1.8-7.8 10^3/uL Lymphocytes # (Auto) 0.9 L 1.0-4.0 10^3/uL Monocytes # (Auto) 0.6 0.0-1.0 10^3/uL Eosinophils # (Auto) 0.2 0.0-0.3 10^3/uL Basophils # (Auto) 0.0 0.0-0.1 10^3/uL Immature Granulocyte # (Auto) 0.5 H 0.0-0.1 10^3/uL Prothrombin Time 47.8 *H 12.2-14.7 SEC INR Comment 5.4 *H 0.8-1.4 Sodium Level 140 135-145 MMOL/L Potassium Level 3.4 L 3.6-5.0 MMOL/L Chloride Level 111 H 98-107 MMOL/L Carbon Dioxide Level 22 21-32 MMOL/L Anion Gap 7 5-14 MMOL/L Blood Urea Nitrogen 10 7-18 MG/DL Creatinine 0.58 L 0.60-1.30 MG/DL Estimat Glomerular Filtration Rate 93 BUN/Creatinine Ratio 17 Glucose Level 100 70-105 MG/DL Calcium Level 7.5 L 8.5-10.1 MG/DL Corrected Calcium 8.7 8.5-10.1 MG/DL Magnesium Level 2.1 1.6-2.4 MG/DL Total Bilirubin 2.4 H 0.1-1.0 MG/DL Aspartate Amino Transf (AST/SGOT) 41 H 5-34 U/L Alanine Aminotransferase (ALT/SGPT) 32 0-55 U/L Alkaline Phosphatase 215 H 40-136 U/L Total Protein 4.1 L 6.4-8.2 GM/DL Albumin 2.5 L 3.2-4.5 GM/DL TAMIKA NEVAREZ MD Mar 16, 2023 08:47
[2023-03-16] MEDS ORDERED: PANTOPRAZOLE 40 MG (PROTONIX) TAB PO SCH (09:00)
[2023-03-16 09:07] VITALS: BP 123/62
--- NOTE | 2023-03-16 09:38 | Progress Note ---
Subjective Date Seen by a Provider: Mar 16, 2023 Time Seen by a Provider: 09:30 Subjective/Events-last exam patient currently stable. decrease Hb however no signs clinical bleed. hx of GERD and likely PUD. unsure if has had coloscopy. Focused Exam Lactate Level 03/14/23 17:15: Lactic Acid Level 1.61 Time of Focused Exam: 19:25 Objective Exam Vital Signs Date Time Temp Pulse Resp B/P (MAP) Pulse Ox O2 Delivery O2 Flow Rate FiO2 03/16/23 09:07 35.0 99 18 123/62 94 Nasal Cannula 2.00 03/16/23 09:00 95 123/62 (75) 94 Nasal Cannula 3.00 03/16/23 08:00 91 126/59 (78) 96 Nasal Cannula 3.00 03/16/23 07:48 36.0 03/16/23 07:00 89 03/16/23 07:00 96 Nasal Cannula 3.00 03/16/23 07:00 89 118/60 (85) 95 Nasal Cannula 3.00 03/16/23 06:00 86 140/77 (98) 95 Nasal Cannula 3.00 03/16/23 05:00 81 123/80 (94) 92 Nasal Cannula 3.00 03/16/23 04:00 95 Nasal Cannula 2.00 03/16/23 04:00 78 122/64 (83) 95 Nasal Cannula 3.00 03/16/23 03:00 83 130/70 (90) 96 Nasal Cannula 3.00 03/16/23 02:00 95 139/79 (99) 95 Nasal Cannula 3.00 03/16/23 01:03 80 03/16/23 01:00 80 123/82 (96) 95 Nasal Cannula 3.00 03/16/23 00:00 99 Nasal Cannula 2.00 03/16/23 00:00 82 113/76 (88) 96 Nasal Cannula 3.00 03/15/23 23:00 80 120/71 (87) 96 Nasal Cannula 3.00 03/15/23 22:00 91 104/63 (77) 97 Nasal Cannula 3.00 03/15/23 21:00 84 111/68 (82) 96 Nasal Cannula 3.00 03/15/23 20:00 99 Nasal Cannula 2.00 03/15/23 20:00 87 125/60 (81) 96 Nasal Cannula 3.00 03/15/23 19:31 35.9 03/15/23 19:00 89 115/74 (88) 100 Nasal Cannula 3.00 03/15/23 18:54 87 03/15/23 18:52 94 Nasal Cannula 2.00 03/15/23 18:00 92 123/65 (107) 93 Nasal Cannula 3.00 03/15/23 17:00 95 123/72 (95) 100 Nasal Cannula 3.00 03/15/23 16:00 99 Nasal Cannula 3.00 03/15/23 16:00 91 112/73 (92) 98 Nasal Cannula 3.00 03/15/23 15:35 35.8 03/15/23 15:08 99 Nasal Cannula 3.00 03/15/23 15:00 80 102/63 (83) 99 Nasal Cannula 3.00 03/15/23 14:00 85 92/54 (65) 96 Nasal Cannula 3.00 03/15/23 13:00 80 92/44 (51) 96 Nasal Cannula 3.00 03/15/23 12:22 85 03/15/23 12:00 84 104/53 (75) 100 Nasal Cannula 3.00 03/15/23 12:00 99 Nasal Cannula 3.00 03/15/23 11:50 35.8 03/15/23 11:45 100 Nasal Cannula 3.00 03/15/23 11:00 83 110/63 (74) 96 Nasal Cannula 3.00 03/15/23 10:00 80 93/48 (64) Nasal Cannula 3.00 I & O 03/16/23 07:00 Intake Total 2150 ml Output Total 735 ml Balance 1415 ml Capillary Refill : Less Than 3 Seconds General Appearance: No Apparent Distress HEENT: PERRL/EOMI Neck: Full Range of Motion Respiratory: Chest Non Tender, Decreased Breath Sounds Cardiovascular: Regular Rate, Rhythm Gastrointestinal: normal bowel sounds, non tender, soft Extremity: Normal Capillary Refill Neurologic/Psychiatric: Alert, Disoriented Skin: Normal Color Lymphatic: No Adenopathy Results Lab Laboratory Tests 03/15/23 16:39: 03/16/23 05:15: White Blood Count 8.5, Red Blood Count 1.99L, Hemoglobin 6.3*L, Hematocrit 20*L, Mean Corpuscular Volume 99, Mean Corpuscular Hemoglobin 32, Mean Corpuscular Hemoglobin Concent 32, Red Cell Distribution Width 17.4H, Platelet Count 203, Mean Platelet Volume 9.8, Immature Granulocyte % (Auto) 5, Neutrophils (%) (Auto) 75, Lymphocytes (%) (Auto) 10L, Monocytes (%) (Auto) 7, Eosinophils (%) (Auto) 2, Basophils (%) (Auto) 0, Neutrophils # (Auto) 6.4, Lymphocytes # (Auto) 0.9L, Monocytes # (Auto) 0.6, Eosinophils # (Auto) 0.2, Basophils # (Auto) 0.0, Immature Granulocyte # (Auto) 0.5H, Prothrombin Time 47.8*H, INR Comment 5.4*H, Sodium Level 140, Potassium Level 3.4L, Chloride Level 111H, Carbon Dioxide Level 22, Anion Gap 7, Blood Urea Nitrogen 10, Creatinine 0.58L, Estimat Glomerular Filtration Rate 93, BUN/Creatinine Ratio 17, Glucose Level 100, Calcium Level 7.5L, Corrected Calcium 8.7, Magnesium Level 2.1, Total Bilirubin 2.4H, Aspartate Amino Transf (AST/SGOT) 41H, Alanine Aminotransferase (ALT/SGPT) 32, Alkaline Phosphatase 215H, Total Protein 4.1L, Albumin 2.5L Microbiology 03/14/23 MRSA Screen - Final, Complete MRSA not isolated 03/14/23 Blood Culture - Preliminary, Resulted No growth 03/14/23 Urine Culture - Preliminary, Resulted Probable Enterococcus Species YEAST Assessment/Plan Assessment/Plan Assess & Plan/Chief Complaint UTI, pneumonia, anemia and multisystem organ failure. anemia of unknown etiology. tx PRBC. will continue to monitor and endoscopy if indicated and family amenable. ERROL ROSADO MD Mar 16, 2023 09:38
[2023-03-16 10:12] VITALS: BP 120/69
[2023-03-16] MEDS: DOCUSATE SODIUM 100 MG (COLACE) CAP PO SCH ×2 (10:28→21:05)
[2023-03-16] MEDS: SENNOSIDES 8.6 MG (SENOKOT) TAB PO SCH ×2 (10:29→21:06)
[2023-03-16 13:20] VITALS: BP 138/86
[2023-03-16 15:26] LABS: BASOPHILS # (AUTO) 0.1 10^3/uL (0.0-0.1); BASOPHILS % (AUTO) 1 % (0-10); EOSINOPHILS # (AUTO) 0.2 10^3/uL (0.0-0.3); EOSINOPHILS % (AUTO) 2 % (0-10); HEMATOCRIT 27 % (35-52); HEMOGLOBIN 8.7 g/dL (11.5-16.0); LYMPHOCYTES # (AUTO) 1.1 10^3/uL (1.0-4.0); LYMPHOCYTES % (AUTO) 10 % (12-44); MEAN CORPUSCULAR HEMOGLOBIN 30 pg (25-34); MEAN CORPUSCULAR HGB CONC 32 g/dL (32-36); MEAN CORPUSCULAR VOLUME 93 fL (80-99); MEAN PLATELET VOLUME 9.8 fL (9.0-12.2); MONOCYTES # (AUTO) 0.7 10^3/uL (0.0-1.0); MONOCYTES % (AUTO) 6 % (0-12); NEUTROPHILS # (AUTO) 8.4 10^3/uL (1.8-7.8); NEUTROPHILS % (AUTO) 75 % (42-75); PLATELET COUNT 218 10^3/uL (130-400); WHITE BLOOD COUNT 11.3 10^3/uL (4.3-11.0)
--- NOTE | 2023-03-16 17:43 | Progress Note - Hospitalist ---
Subjective HPI/CC On Admission Date Seen by Provider: Mar 16, 2023 Time Seen by Provider: 10:30 Cathleen Kay is a 77 year old female with PMH HTN, asthma, SVT, COPD, chronic respiratory failure with hypoxia, DVT/PE, who presented with altered mental status. She has been confused and weak for quite a while according to family. She is able to wake up and answer questions appropriately for me. She is hard of hearing. She denies pain. She has had recurrent illnesses and hospitalizations since December. At that time, she was hospitalized at [facility] with respiratory failure. An extensive workup was unrevealing for the cause of her respiratory failure so she was transferred to [facility] in [place]. She was eventually found to have Pseudomonas pneumonia and cavitary abscess. She was treated with Cefepime. Upon discharge, she came to the inpatient rehab unit at [facility]. She was unable to tolerate the therapy and was discharged to [facility]. Hospice was recommended at that time. Her daughter did not think she was getting the therapy she needed so she discharged her and took her home. According to family, she continued to worsen at home. She was taken to the ER on 03/01 and she was treated for dehydration. A UA at that time ended up growing VRE. There was a hospice evaluation scheduled for the following Friday according to the ER note. She returned to the ER on 03/03 and was found to have a DVT/PE. She was transferred to [facility] on 03/04 for thrombectomy. She had continued confusion and weakness according to family. A UA was evantually checked and she was found to have VRE. She was given one dose of IV Linezolid prior to discharge. She was discharged to [facility] on oral Linezolid. She was quickly sent to the ER due to poor condition and the family was reportedly told that she may be needing end of life care. She was brought to the [facility] ER and admitted with sepsis due to UTI. Subjective/Events-last exam She is more lethargic today. She is sleeping but able to be aroused. She has discharge from her right ear. Her is at her side holding her hand. Focused Exam Lactate Level 03/14/23 17:15: Lactic Acid Level 1.61 Time of Focused Exam: 19:25 Objective Exam Vital Signs Vital Signs Date Time Temp Pulse Resp B/P (MAP) Pulse Ox O2 Delivery O2 Flow Rate FiO2 03/16/23 17:00 98 93/78 (84) 95 Nasal Cannula 3.00 03/16/23 15:54 36.2 03/16/23 13:20 18 03/14/23 21:00 28 Capillary Refill : Less Than 3 Seconds General Appearance: No Apparent Distress, Chronically ill Respiratory: No Respiratory Distress, Decreased Breath Sounds Cardiovascular: Regular Rate, Rhythm, No Murmur Gastrointestinal: Normal Bowel Sounds, Soft Extremity: No Inflammation; Pedal Edema Neurologic/Psychiatric: Disoriented, Other (lethargic) Skin: Cool, Pallor Results/Procedures Lab Laboratory Tests 03/16/23 05:15 03/16/23 15:20 Patient resulted labs reviewed. Imaging: Reviewed Imaging Report Assessment/Plan Assessment and Plan Assess & Plan/Chief Complaint Severe sepsis due to UTI VRE infection Septic encephalopathy Recent Pseudomonas pneumonia and lung abscess SIRS+ with leukocytosis, tachycardia, tachypnea Recent urine culture with VRE, repeat cultures with Enterococcus faecium Continue Linezolid and Merrem TeleICU following Debility Recurrent hospitalizations Severe protein calorie malnutrition Hypoalbuminemia Poor prognosis Goals of care discussion Palliative care consulted PT/OT Albumin Ensure Remeron Dietary consult Family decided to transition to DNR DVT/PE Supratherapeutic INR Lovenox held COPD/Asthma Chronic respiratory failure with hypoxia HTN Hold antihypertensives MAT protocol Critical Care Critically Ill Patient Diagnosis/Problems Diagnosis/Problems (1) Sepsis Status: Acute Qualifiers: Sepsis type: sepsis due to unspecified organism Sepsis acute organ dysfunction status: with acute organ dysfunction Severe sepsis acute organ dysfunction type: encephalopathy Severe sepsis shock status: without septic s hock Qualified Codes: A41.9 - Sepsis, unspecified organism; R65.20 - Severe s epsis without septic shock; G93.40 - Encephalopathy, unspecified (2) Urinary tract infection Status: Acute Qualifiers: Urinary tract infection type: catheter-associated UTI Indwelling urinary catheter type: indwelling urethral catheter Encounter type: initial encounter Qualified Codes: T83.511A - Infection and inflammatory reaction due to indwelling urethral catheter, initial encounter; N39.0 - Urinary tract infection, site not specified (3) VRE (vancomycin-resistant Enterococci) infection Status: Acute (4) Septic encephalopathy Status: Acute (5) Debility Status: Acute (6) Severe protein-calorie malnutrition Status: Acute (7) Venous thromboembolism (VTE) present on admission Status: Acute (8) History of recent hospitalization Status: Acute (9) Goals of care, counseling/discussion Status: Acute CHRISTA KEATING MD Mar 16, 2023 17:43
[2023-03-16] MEDS ORDERED: NS (IVPB) 100 ML ONE (20:10)
[2023-03-16] MEDS: MIRTAZAPINE 15 MG (REMERON) TAB PO SCH ×2 (21:06→21:18)
[2023-03-17] MEDS ORDERED: NALOXONE SL ONE (00:45)
[2023-03-17] MEDS ORDERED: BUPRENORPHINE SL ONE (00:45)
[2023-03-17] MEDS ORDERED: fentaNYL INJ 100 MCG/2 ML AMP IVP PRN (03:15)
[2023-03-17] MEDS: PIPERACILLIN SODIUM/TAZOBACTAM 4.5 GM in NS (IVPB) 100 ML IV SCH ×3 (03:28→20:15)
[2023-03-17 04:15] LABS: BASOPHILS # (AUTO) 0.1 10^3/uL (0.0-0.1); BASOPHILS % (AUTO) 1 % (0-10); EOSINOPHILS # (AUTO) 0.2 10^3/uL (0.0-0.3); EOSINOPHILS % (AUTO) 2 % (0-10); HEMATOCRIT 26 % (35-52); HEMOGLOBIN 8.2 g/dL (11.5-16.0); LYMPHOCYTES # (AUTO) 1.3 10^3/uL (1.0-4.0); LYMPHOCYTES % (AUTO) 11 % (12-44); MEAN CORPUSCULAR HEMOGLOBIN 30 pg (25-34); MEAN CORPUSCULAR HGB CONC 32 g/dL (32-36); MEAN CORPUSCULAR VOLUME 94 fL (80-99); MEAN PLATELET VOLUME 9.6 fL (9.0-12.2); MONOCYTES # (AUTO) 0.8 10^3/uL (0.0-1.0); MONOCYTES % (AUTO) 7 % (0-12); NEUTROPHILS # (AUTO) 8.6 10^3/uL (1.8-7.8); NEUTROPHILS % (AUTO) 74 % (42-75); PLATELET COUNT 207 10^3/uL (130-400); WHITE BLOOD COUNT 11.7 10^3/uL (4.3-11.0)
[2023-03-17 04:26] LABS: INR 4.8 (0.8-1.4); PROTHROMBIN TIME PATIENT 43.8 SEC (12.2-14.7)
[2023-03-17 04:34] LABS: CALCIUM 7.8 MG/DL (8.5-10.1); CREATININE SERUM 0.58 MG/DL (0.60-1.30); TOTAL PROTEIN 4.3 GM/DL (6.4-8.2)
[2023-03-17] MEDS: POTASSIUM CL 10MEQ/50ML IVPB 50 ML IV SCH (04:53)
[2023-03-17] MEDS: KCL 20 MEQ TAB (K-DUR) PO SCH (04:53)
[2023-03-17] MEDS: MAGNESIUM 1 GM/100 ML IVPB 100 ML IV SCH ×3 (04:55→06:21)
[2023-03-17 05:00] LABS: BILIRUBIN,TOTAL 3.9 MG/DL (0.1-1.0)
[2023-03-17] MEDS: RT-ALBUTEROL/IPRATROPIUM 3 ML (DUONEB) VIAL INH SCH ×4 (07:44→18:50)
[2023-03-17] MEDS: PANTOPRAZOLE 40 MG (PROTONIX) VIAL IV SCH (08:35)
[2023-03-17] MEDS: ALBUMIN 25% 25 GM/100 ML 100 ML IV SCH ×3 (08:35→23:43)
[2023-03-17] MEDS: SENNOSIDES 8.6 MG (SENOKOT) TAB PO SCH ×2 (08:35→21:22)
[2023-03-17] MEDS: LINEZOLID IVPB 300 ML IV SCH ×2 (08:35→21:17)
[2023-03-17] MEDS: DOCUSATE SODIUM 100 MG (COLACE) CAP PO SCH ×2 (08:35→21:21)
[2023-03-17 09:12] VITALS: BP 123/73
--- NOTE | 2023-03-17 10:13 | Tele-ICU Progress Note ---
Subjective Date Seen by a Provider: Mar 17, 2023 Time Seen by a Provider: 10:13 Subjective/Events-last exam (Tele-ICU Physician , Progress Note ) Service provided via interactive audio and video telecommunications E-CARE system to a patient admitted to ICU bed in [facility]. Patient is seen today due to persistent need of ICU care Available chart/ vitals / labs / Images reviewed Video assessment done using teleICU camera, rest of exam as per RN Discussed with RN Events overnight : Afebrile hemodynamically stable Respiratory - 3l I/O =pos Drips: Pressors- no Hospital course: (03.14) Admitted a 77y/o with sepsis (recurrent UTI) and possible PNA 6.25- Hb down to 6. - transfusion 1 U pRBC A/P Recurrent urinary tract infection- ? previous cx results / sens Sepsis syndrome with metabolic encephalopathy Elevated INR due to sepsis and Eliquis Anemia , Hb 6.3 03/16- -- transfusion 1 U pRBC , sx consulted , PPI Malnutrishion , hypoalbuminemia Recent Acute DVT/PE. - transferred to [facility] in [place] for clot retrieval in [place] - OFF any AC Recommendations Broad-spectrum antibiotics with IV Zosyn and linezolid follow elevated INR, no active bleed albumin transfusion for oliguria in face of periferal edema and unrespmsive to IV boluses last night follow menttal status Lines : right femoral line 03/15 , PICC recently removed , (Central Line Necessity Reviewed) Diane: + - chronic ? OG: Nutrition: Analgesia: Anxiety/ delirium VTE Prophylaxis: NA - coagulopathy Stress Ulcer Prophylaxis: Plans in collaboration with bedside consultants and IM MDs. Discussed with RN to reach out if any questions or concerns Case and care daily discussed on multidisciplinary rounds ( RN, PharmD, Cat Wagon Operator , Respiratory Therapy, sex worker or escort ) A total of 20 minutes of critical care time was devoted to this patient today, required to treat and/or prevent further deterioration of critical care condition ( as above ) . I am remotely monitoring this patient from another state. I am unable to do the bedside exam, and history/physical and pertinent information is taken from other notes in the computer and bedside staff. Sepsis Event Evaluation Height, Weight, BMI Height: 5'3.00" Weight: 140lbs. 0.0oz. 63.284325pz; 26.41 BMI Method:Stated Focused Exam Lactate Level 03/14/23 17:15: Lactic Acid Level 1.61 Time of Focused Exam: 19:25 Exam Exam Patient acknowledged, consented, and participated in this virtual visit which was conducted using real time audio/video Vital Signs Date Time Temp Pulse Resp B/P (MAP) Pulse Ox O2 Delivery O2 Flow Rate FiO2 03/17/23 09:12 35.7 101 95 03/17/23 08:00 101 123/73 (90) 95 Nasal Cannula 3.00 03/17/23 07:49 35.7 Nasal Cannula 3.00 03/17/23 07:44 93 Nasal Cannula 3.00 03/17/23 07:00 96 127/71 (89) 91 Nasal Cannula 3.00 03/17/23 07:00 96 03/17/23 06:00 99 88/56 (67) 92 Nasal Cannula 3.00 03/17/23 05:00 100/55 (69) 03/17/23 04:30 103 92 Nasal Cannula 3.00 03/17/23 04:16 94 Nasal Cannula 3.00 03/17/23 04:00 36.0 107 16 120/73 (83) 91 Nasal Cannula 3.00 03/17/23 03:00 105 105/67 (75) 98 Nasal Cannula 3.00 03/17/23 02:00 114 127/85 (99) 93 Nasal Cannula 3.00 03/17/23 01:00 112 109/84 (92) 94 Nasal Cannula 3.00 03/17/23 01:00 115 03/17/23 00:05 36.0 03/17/23 00:00 113 128/86 (100) 96 Nasal Cannula 3.00 03/16/23 23:59 95 Nasal Cannula 3.00 03/16/23 23:00 114 16 131/67 (88) 95 Nasal Cannula 3.00 03/16/23 22:00 118 133/72 (92) 94 Nasal Cannula 3.00 03/16/23 21:07 95 Nasal Cannula 3.00 03/16/23 21:00 112 137/90 (106) 95 Nasal Cannula 3.00 03/16/23 20:15 94 Nasal Cannula 3.00 03/16/23 20:00 135/92 (115) 94 Nasal Cannula 3.00 03/16/23 19:53 36.3 6/25/23 19:00 111 03/16/23 19:00 36.3 112 145/86 (101) 95 Nasal Cannula 3.00 03/16/23 18:00 111 147/85 (90) Nasal Cannula 3.00 03/16/23 17:00 98 93/78 (84) 95 Nasal Cannula 3.00 03/16/23 16:00 96 Nasal Cannula 3.00 03/16/23 16:00 96 123/72 (89) 96 Nasal Cannula 3.00 03/16/23 15:54 36.2 03/16/23 15:00 96 139/73 (96) 97 Nasal Cannula 3.00 03/16/23 14:48 97 Nasal Cannula 3.00 03/16/23 14:00 102 137/98 (112) 97 Nasal Cannula 3.00 03/16/23 13:20 36.5 101 18 138/86 97 Nasal Cannula 3.00 03/16/23 13:00 102 138/86 (111) 96 Nasal Cannula 3.00 03/16/23 12:26 104 03/16/23 12:00 104 131/81 (109) 94 Nasal Cannula 3.00 03/16/23 12:00 97 Nasal Cannula 3.00 03/16/23 11:52 36.1 03/16/23 11:00 97 130/83 (98) 96 Nasal Cannula 3.00 03/16/23 10:37 96 Nasal Cannula 3.00 I & O 03/17/23 07:00 Intake Total 1170 ml Output Total 1100 ml Balance 70 ml Height & Weight Height: 5'3.00" Weight: 140lbs. 0.0oz. 63.316665bg; 26.41 BMI Method:Stated General Appearance: No Apparent Distress, Chronically ill HEENT: PERRL/EOMI Neck: Full Range of Motion Respiratory: No Respiratory Distress, Decreased Breath Sounds Cardiovascular: Regular Rate, Rhythm, No Murmur Capillary Refill: Less Than 3 Seconds Gastrointestinal: normal bowel sounds, non tender, soft Extremity: No Inflammation; Pedal Edema Neurologic/Psychiatric: Disoriented, Other (lethargic) Skin: Cool, Pallor Lymphatic: No Adenopathy Results Lab Laboratory Tests 03/16/23 05:15 03/16/23 15:20 03/17/23 04:05 Assessment/Plan Assessment/Plan 1 SHULZHENKO,LETICIA V MD Mar 17, 2023 10:13
--- NOTE | 2023-03-17 10:33 | Diagnostic Imaging Report ---
PROCEDURE: US Hepatic (Liver). TECHNIQUE: Multiple real-time grayscale images were obtained over the right upper quadrant in various projections. INDICATION: Cirrhosis. Correlation is made with prior CT from 01/16/2023. The liver is normal in size at 16 cm. There is generalized increased echogenicity throughout the liver consistent with hepatic steatosis. The portal vein is patent and demonstrates normal direction of flow. Gallbladder contains numerous small stones. Gallbladder wall is thickened at 4 mm. There is some mild pericholecystic fluid present. No biliary ductal dilatation is identified. Pancreas is poorly visualized. Aorta is nonaneurysmal. IVC is patent. Right kidney does contain an approximately 3 cm cyst. No renal calculi or hydronephrosis is detected. There is minimal ascites. IMPRESSION: 1. Hepatic steatosis. 2. Cholelithiasis with findings suspicious for acute cholecystitis. 3. A 3 cm right renal cyst. Dictated by: Dictated on workstation # [id number]
--- NOTE | 2023-03-17 12:27 | Progress Note - Hospitalist ---
Subjective HPI/CC On Admission Date Seen by Provider: Mar 17, 2023 Cathleen Kay is a 77 year old female with PMH HTN, asthma, SVT, COPD, chronic respiratory failure with hypoxia, DVT/PE, who presented with altered mental status. She has been confused and weak for quite a while according to family. She is able to wake up and answer questions appropriately for me. She is hard of hearing. She denies pain. She has had recurrent illnesses and hospitalizations since December. At that time, she was hospitalized at [facility] with respiratory failure. An extensive workup was unrevealing for the cause of her respiratory failure so she was transferred to [facility] in [place]. She was eventually found to have Pseudomonas pneumonia and cavitary abscess. She was treated with Cefepime. Upon discharge, she came to the inpatient rehab unit at [facility]. She was unable to tolerate the therapy and was discharged to [facility]. Hospice was recommended at that time. Her daughter did not think she was getting the therapy she needed so she discharged her and took her home. According to family, she continued to worsen at home. She was taken to the ER on 03/01 and she was treated for dehydration. A UA at that time ended up growing VRE. There was a hospice evaluation scheduled for the following Friday according to the ER note. She returned to the ER on 03/03 and was found to have a DVT/PE. She was transferred to [facility] on 03/04 for thrombectomy. She had continued confusion and weakness according to family. A UA was evantually checked and she was found to have VRE. She was given one dose of IV Linezolid prior to discharge. She was discharged to [facility] on oral Linezolid. She was quickly sent to the ER due to poor condition and the family was reportedly told that she may be needing end of life care. She was brought to the [facility] ER and admitted with sepsis due to UTI. Subjective/Events-last exam Pt sleeping soundly. Does open eyes when I spoke to her and denied any needs. Reviewed meds with her . Restarted what I was able to. Discussed plan to check liver usg and ammonia level. Focused Exam Lactate Level 03/14/23 17:15: Lactic Acid Level 1.61 Time of Focused Exam: 19:25 Objective Exam Vital Signs Vital Signs Date Time Temp Pulse Resp B/P (MAP) Pulse Ox O2 Delivery O2 Flow Rate FiO2 03/17/23 12:00 105 129/73 (91) 91 Nasal Cannula 3.00 03/17/23 11:39 35.7 03/17/23 04:00 16 03/14/23 21:00 28 Capillary Refill : Less Than 3 Seconds General Appearance: No Apparent Distress, Chronically ill Respiratory: Lungs Clear, No Respiratory Distress Cardiovascular: Regular Rate, Rhythm Gastrointestinal: Normal Bowel Sounds, Non Tender, Soft Neurologic/Psychiatric: Other (very hard of hearing but did answer a couple of questions and followed commands) Results/Procedures Lab Laboratory Tests 03/16/23 15:20 03/17/23 04:05 Patient resulted labs reviewed. Imaging: Reviewed Imaging Report Assessment/Plan Assessment and Plan Assess & Plan/Chief Complaint Severe sepsis due to UTI VRE infection Septic encephalopathy Recent Pseudomonas pneumonia and lung abscess Recent urine culture with VRE, repeat cultures with Enterococcus faecium Continue Linezolid and Merrem TeleICU following Hyperbilirubinemia Supratherapeutic INR No history of liver disease Check ammonia level Check liver usg suggestive of acute cholecystitis- I called and updated Dr An and he will review and talkto family Debility Recurrent hospitalizations Severe protein calorie malnutrition Hypoalbuminemia Poor prognosis Goals of care discussion Palliative care consulted PT/OT Albumin Ensure Remeron/Trazodone if able to take PO Dietary consult DVT/PE Supratherapeutic INR Lovenox held COPD/Asthma Chronic respiratory failure with hypoxia HTN Hold antihypertensives MAT protocol Critical Care Critically Ill Patient ARSLAN COHEN MD Mar 17, 2023 12:27
[2023-03-17] MEDS ORDERED: HYDR-3820 PO (12:31)
[2023-03-17] MEDS ORDERED: CYAN1TAB26 PO (12:31)
[2023-03-17] MEDS ORDERED: POTA20PA28 PO (12:31)
[2023-03-17] MEDS ORDERED: RT-ALBUINH INH (12:31)
[2023-03-17] MEDS ORDERED: CIPR7.5D6 OT (12:31)
[2023-03-17] MEDS ORDERED: ASPI-808 PO (12:31)
[2023-03-17] MEDS ORDERED: LORA-404 PO (12:31)
[2023-03-17] MEDS ORDERED: FLUC200T9 PO (12:31)
[2023-03-17] MEDS ORDERED: LNZ600T PO (12:31)
[2023-03-17] MEDS ORDERED: LISI10TA25 PO (12:31)
[2023-03-17] MEDS ORDERED: LORA5SOL52 PO (12:31)
[2023-03-17] MEDS ORDERED: METO50TA7 PO (12:31)
[2023-03-17] MEDS ORDERED: ACET-2267 PO (12:31)
[2023-03-17] MEDS ORDERED: APIX5TAB PO (12:31)
[2023-03-17] MEDS ORDERED: HYDR-3584 PO (12:31)
[2023-03-17] MEDS ORDERED: PANT40TA52 PO (12:31)
[2023-03-17] MEDS ORDERED: NALO4SPR3 NS (12:31)
[2023-03-17] MEDS ORDERED: LEVA1.2543 IH (12:31)
--- NOTE | 2023-03-17 13:59 | Physical Therapy Evaluation ---
PT Evaluation-General Medical Diagnosis Admission Date Mar 14, 2023 at 20:43 Medical Diagnosis: Sepsis, Pneumonia Onset Date: Mar 16, 2023 Therapy Diagnosis Therapy Diagnosis: Strength deficit Height/Weight Height (Feet): 5 Height (Inches): 3.00 Weight (Pounds): 140 Weight (Ounces): 0.0 Precautions Precautions/Isolations: Fall Prevention, Standard Precautions Weight Bear Status Right Lower Extremity: Right Full Weight Bearing Left Lower Extremity: Left Full Weight Bearing Referral Physician: Dr. Lentz Reason for Referral: Evaluation/Treatment Medical History Pertinent Medical History: COPD, HTN, Renal Insufficiency Reviewed History: Yes Social History Home: [facility] Current Living Status: Alone Entry Into Home: Level Entry Prior Prior Level of Function SCALE: Activities may be completed with or without assistive devices. 0-Oxrcyvxcsk-hvpzucz completes the activity by him/herself with no assistance from a helper. 5-Set-up or Clean-up Assistance-helper sets up or cleans up; patient completes activity. Nellis assists only prior to or following the activity. 4-Supervision or Touching Assistance-helper provides verbal cues and/or touching/steadying and/or contact guard assistance as patient completes activity. Assistance may be provided throughout the activity or intermittently. 3-Partial/Moderate Assistance-helper does LESS THAN HALF the effort. Nellis lifts, holds or supports trunk or limbs, but provides less than half the effort. 2-Substantial/Maximal Assistance-helper does MORE THAN HALF the effort. Nellis lifts or holds trunk or limbs and provides more than half the effort. 2-Siougkmto-qjpyzm does ALL the effort. Patient does none of the effort to complete the activity. Or, the assistance of 2 or more helpers is required for the patient to complete the activity. If activity was not attempted, code reason: 7-Patient Refused. 9-Not Applicable-not attempted and the patient did not perform the activity before the current illness, exacerbation or injury. 10-Not Attempted due to Environmental Limitations-(lack of equipment, weather restraints, etc.). 88-Not Attempted due to Medical Conditions or Safety Concerns. Bed Mobility: 1 Transfers (B,C,W/C): 1 Gait: 1 Indoor Mobility (Ambulation): Dependent Prior Devices Use: Manual wheelchair, Walker PT Evaluation-Current Subjective Patient lying supine in bed upon PT arrival, no reply in agreement to treatment. Patient does not reply to any questions or comments. When she is initially transferred to the EOB she makes a face and groans, but does not answer when questioned about her pain. Objective Patient Orientation: Unable to Assess, Listless Attachments: Oxygen, Diane Catheter, IV ROM/Strength ROM Lower Extremities Limited all planes to AROM, PROM appears WFLs, however demonstrates some st iffness at end range of motion. Strength Lower Extremities Patient unable to participate in MMT and does not demonstrate any volitional movement to grade LE strength during functional mobility. Sensory Vision: Functional Hearing: Impaired Sensation Lower Extremities Patient does not reply when sensation testing occurs. Transfers Roll Left to Right (QC): 1 Sit to Lying (QC): 1 Lying to Sitting/Side of Bed(Q: 1 Gait Does the Patient Walk?: No and Walking Goal NOT indicated Balance Sitting Static: Poor Sitting Dynamic: Poor Assessment/Needs Patient unable to participate in any aspect of the PT evaluation. Patient does not reply to any questions of volunteer any information. At this time patient is not an appropriate candidate for Physical therapy treatment. No further PT at this time. Rehab Potential: Poor PT Plan Treatment/Plan Treatment Plan: Discontinue PT Treatment Duration: Mar 17, 2023 Frequency: Patient and/or Family Agrees t: No Patient unable to reply and no family present. Time Time In: 1335 Time Out: 1355 DATE: Mar 17, 2023 Total Billed Treatment Time: 20 Total Billed Treatment Visit, TORITO ALTMAN PT Mar 17, 2023 13:59
--- NOTE | 2023-03-17 17:22 | Progress Note ---
Subjective Date Seen by a Provider: Mar 17, 2023 Time Seen by a Provider: 17:00 Subjective/Events-last exam patient stable. no signs GI bleed. still considerably confused. patient states has had issues with nausea/anorexia for months. hx of PUD and last colonoscopy greater than 10yrs. Focused Exam Time of Focused Exam: 19:25 Objective Exam Vital Signs Date Time Temp Pulse Resp B/P (MAP) Pulse Ox O2 Delivery O2 Flow Rate FiO2 03/17/23 16:04 92 Nasal Cannula 3.00 03/17/23 16:00 36.1 Nasal Cannula 3.00 03/17/23 15:30 97 Nasal Cannula 3.00 03/17/23 15:00 105 104/55 (71) 90 Nasal Cannula 3.00 03/17/23 14:00 105 114/64 (81) 93 Nasal Cannula 3.00 03/17/23 13:00 105 123/68 (86) 92 Nasal Cannula 3.00 03/17/23 12:55 105 03/17/23 12:01 94 Nasal Cannula 3.00 03/17/23 12:00 105 129/73 (91) 91 Nasal Cannula 3.00 03/17/23 11:39 35.7 Nasal Cannula 3.00 03/17/23 11:00 105 139/82 (101) 94 Nasal Cannula 3.00 03/17/23 10:53 93 Nasal Cannula 3.00 03/17/23 10:00 105 113/70 (84) 92 Nasal Cannula 3.00 03/17/23 09:12 35.7 101 95 03/17/23 09:00 105 110/57 (74) 93 Nasal Cannula 3.00 03/17/23 08:00 101 123/73 (90) 95 Nasal Cannula 3.00 03/17/23 07:49 35.7 Nasal Cannula 3.00 03/17/23 07:44 93 Nasal Cannula 3.00 03/17/23 07:38 94 Nasal Cannula 3.00 03/17/23 07:00 96 127/71 (89) 91 Nasal Cannula 3.00 03/17/23 07:00 96 03/17/23 06:00 99 88/56 (67) 92 Nasal Cannula 3.00 03/17/23 05:00 100/55 (69) 03/17/23 04:30 103 92 Nasal Cannula 3.00 03/17/23 04:16 94 Nasal Cannula 3.00 03/17/23 04:00 36.0 107 16 120/73 (83) 91 Nasal Cannula 3.00 03/17/23 03:00 105 105/67 (75) 98 Nasal Cannula 3.00 03/17/23 02:00 114 127/85 (99) 93 Nasal Cannula 3.00 03/17/23 01:00 112 109/84 (92) 94 Nasal Cannula 3.00 03/17/23 01:00 115 03/17/23 00:05 36.0 03/17/23 00:00 113 128/86 (100) 96 Nasal Cannula 3.00 03/16/23 23:59 95 Nasal Cannula 3.00 03/16/23 23:00 114 16 131/67 (88) 95 Nasal Cannula 3.00 03/16/23 22:00 118 133/72 (92) 94 Nasal Cannula 3.00 03/16/23 21:07 95 Nasal Cannula 3.00 03/16/23 21:00 112 137/90 (106) 95 Nasal Cannula 3.00 03/16/23 20:15 94 Nasal Cannula 3.00 03/16/23 20:00 135/92 (115) 94 Nasal Cannula 3.00 03/16/23 19:53 36.3 03/16/23 19:00 111 03/16/23 19:00 36.3 112 145/86 (101) 95 Nasal Cannula 3.00 03/16/23 18:00 111 147/85 (90) Nasal Cannula 3.00 I & O 03/17/23 07:00 Intake Total 1170 ml Output Total 1100 ml Balance 70 ml Capillary Refill : Less Than 3 Seconds General Appearance: No Apparent Distress HEENT: PERRL/EOMI Neck: Full Range of Motion Respiratory: Chest Non Tender, Decreased Breath Sounds, Rhonci Cardiovascular: Regular Rate, Rhythm Gastrointestinal: normal bowel sounds, soft, tenderness Extremity: Normal Capillary Refill Neurologic/Psychiatric: Disoriented Skin: Normal Color Lymphatic: No Adenopathy Results Lab Laboratory Tests 03/17/23 04:05: White Blood Count 11.7H, Red Blood Count 2.75L, Hemoglobin 8.2L, Hematocrit 26L, Mean Corpuscular Volume 94, Mean Corpuscular Hemoglobin 30, Mean Corpuscular Hemoglobin Concent 32, Red Cell Distribution Width 22.1H, Platelet Count 207, Mean Platelet Volume 9.6, Immature Granulocyte % (Auto) 6, Neutrophils (%) (Auto) 74, Lymphocytes (%) (Auto) 11L, Monocytes (%) (Auto) 7, Eosinophils (%) (Auto) 2, Basophils (%) (Auto) 1, Neutrophils # (Auto) 8.6H, Lymphocytes # (Auto) 1.3, Monocytes # (Auto) 0.8, Eosinophils # (Auto) 0.2, Basophils # (Auto) 0.1, Immature Granulocyte # (Auto) 0.7H, Prothrombin Time 43.8H, INR Comment 4.8H, Sodium Level 144, Potassium Level 4.0, Chloride Level 113H, Carbon Dioxide Level 21, Anion Gap 10, Blood Urea Nitrogen 8, Creatinine 0.58L, Estimat Glomerular Filtration Rate 93, BUN/Creatinine Ratio 14, Glucose Level 87, Calcium Level 7.8L, Corrected Calcium 8.6, Magnesium Level 1.8, Total Bilirubin 3.9H, Aspartate Amino Transf (AST/SGOT) 44H, Alanine Aminotransferase (ALT/SGPT) 32, Alkaline Phosphatase 205H, Total Protein 4.3L, Albumin 3.0L 03/17/23 09:45: Ammonia 33H Microbiology 03/14/23 MRSA Screen - Final, Complete MRSA not isolated 03/14/23 Blood Culture - Preliminary, Resulted No growth 03/14/23 Urine Culture - Preliminary, Resulted Enterococcus faecium Susceptibility To Follow YE[facility] Assessment/Plan Assessment/Plan Assess & Plan/Chief Complaint UTI, pneumonia, anemia and multisystem organ failure. anemia of unknown etiology. tx PRBC. will continue to monitor and endoscopy if indicated and family amenable. family also mentioned PEG tube. has acute on chronic calculous cholecystitis. at this time patient is very poor surgical candidate and with hx of COPD and current pneumonia patient may need prolonged ventilation which family states she wouldn't want when she was lucid. ERROL ROSADO MD Mar 17, 2023 17:22
[2023-03-17] MEDS: traZODone 50 MG (DESYREL) TAB PO SCH (21:22)
[2023-03-17] MEDS: MIRTAZAPINE 15 MG (REMERON) TAB PO SCH (21:22)
[2023-03-17] MEDS ORDERED: AMIODARONE INJECTION 450 MG in NORMAL SALINE 250 ML IV SCH (22:30)
[2023-03-17] MEDS ORDERED: AMIODARONE (Pyxis Kit Only) DRIP 450 MG/9 ML VIAL IV ONE (22:37)
[2023-03-17] MEDS ORDERED: D5W IV SOLUTION (EXCEL) 250 ML IV ONE (22:39)
[2023-03-18] MEDS ORDERED: NS IV 1000 ML 1,000 ML ONE (00:04)
[2023-03-18] MEDS: NS IV 500 ML 500 ML IV SCH ×2 (00:13→18:22)
[2023-03-18] MEDS ORDERED: NOREPINEPHRINE 8 MG/250 ML 250 ML IV ONE (00:34)
[2023-03-18] MEDS: NS IV 1000 ML 1,000 ML IV SCH ×3 (00:43→20:00)
[2023-03-18] MEDS: NOREPINEPHRINE 8 MG/250 ML 250 ML IV SCH ×2 (00:43→20:59)
[2023-03-18] MEDS: PIPERACILLIN SODIUM/TAZOBACTAM 4.5 GM in NS (IVPB) 100 ML IV SCH ×3 (04:11→19:57)
[2023-03-18 04:18] LABS: BASOPHILS # (AUTO) 0.2 10^3/uL (0.0-0.1); BASOPHILS % (AUTO) 1 % (0-10); EOSINOPHILS # (AUTO) 0.4 10^3/uL (0.0-0.3); EOSINOPHILS % (AUTO) 2 % (0-10); HEMATOCRIT 28 % (35-52); HEMOGLOBIN 8.7 g/dL (11.5-16.0); LYMPHOCYTES # (AUTO) 2.9 10^3/uL (1.0-4.0); LYMPHOCYTES % (AUTO) 12 % (12-44); MEAN CORPUSCULAR HEMOGLOBIN 30 pg (25-34); MEAN CORPUSCULAR HGB CONC 31 g/dL (32-36); MEAN CORPUSCULAR VOLUME 98 fL (80-99); MEAN PLATELET VOLUME 9.8 fL (9.0-12.2); MONOCYTES # (AUTO) 1.5 10^3/uL (0.0-1.0); MONOCYTES % (AUTO) 6 % (0-12); NEUTROPHILS # (AUTO) 17.8 10^3/uL (1.8-7.8); NEUTROPHILS % (AUTO) 73 % (42-75); PLATELET COUNT 263 10^3/uL (130-400); WHITE BLOOD COUNT 24.4 10^3/uL (4.3-11.0)
[2023-03-18 04:34] LABS: ALBUMIN 3.5 GM/DL (3.2-4.5); INR 4.8 (0.8-1.4); POTASSIUM 3.8 MMOL/L (3.6-5.0); PROTHROMBIN TIME PATIENT 43.8 SEC (12.2-14.7)
[2023-03-18 04:35] LABS: CALCIUM 7.8 MG/DL (8.5-10.1)
[2023-03-18 04:37] LABS: TOTAL PROTEIN 4.6 GM/DL (6.4-8.2)
[2023-03-18 04:38] LABS: BILIRUBIN,TOTAL 3.1 MG/DL (0.1-1.0)
[2023-03-18 04:40] LABS: CREATININE SERUM 0.67 MG/DL (0.60-1.30)
[2023-03-18] MEDS: KCL 20 MEQ TAB (K-DUR) PO SCH (04:47)
[2023-03-18] MEDS: MAGNESIUM 1 GM/100 ML IVPB 100 ML IV SCH (04:47)
[2023-03-18] MEDS: POTASSIUM CL 10MEQ/50ML IVPB 50 ML IV SCH ×3 (05:01→06:45)
[2023-03-18] MEDS ORDERED: AMIODARONE (Pyxis Kit Only) DRIP 450 MG/9 ML VIAL IV ONE (05:39)
[2023-03-18] MEDS ORDERED: D5W IV SOLUTION (EXCEL) 250 ML IV ONE (05:41)
[2023-03-18] MEDS: RT-ALBUTEROL/IPRATROPIUM 3 ML (DUONEB) VIAL INH SCH ×4 (07:27→19:27)
--- NOTE | 2023-03-18 07:55 | Tele-ICU Progress Note ---
Subjective Date Seen by a Provider: Mar 18, 2023 Time Seen by a Provider: 07:49 Subjective/Events-last exam (Tele-ICU Physician , Progress Note ) Service provided via interactive audio and video telecommunications E-CARE system to a patient admitted to ICU bed in [facility]. Patient is seen today due to persistent need of ICU care Available chart/ vitals / labs / Images reviewed Video assessment done using teleICU camera, rest of exam as per RN Discussed with RN Admitted for urosepsis, dropping Hb toady stable at 8.7, possible PNA Was on IV Meropenem and IV linezolid-Has enterococcus in urine now on IV Zosyn and linezolid pressors on IV levophed @ 0.1, unable to lower, u/s for liver shows fatty liver, gall stones On amiodarone @ 0.5 mg/min for a fib overnight, Now V rate 93, amio caused BP to drop, now on IV levo INR still high at 4.8/PT 43.8-no active bleeding-Hx of recent DVT in both legs, Eliquis is on hold Has femoral line, put in 03/15, site looks ok, Sepsis Event Evaluation Height, Weight, BMI Height: 5'3.00" Weight: 140lbs. 0.0oz. [id number]; 28.80 BMI Method:Stated Focused Exam Time of Focused Exam: 19:25 Exam Exam Patient acknowledged, consented, and participated in this virtual visit which was conducted using real time audio/video Vital Signs Date Time Temp Pulse Resp B/P (MAP) Pulse Ox O2 Delivery O2 Flow Rate FiO2 03/18/23 07:47 36.2 03/18/23 07:36 OxyMask 7.00 03/18/23 07:27 95 OxyMask 9.00 03/18/23 06:00 91 114/64 (81) 92 OxyMask 10.00 03/18/23 05:15 94 119/53 (80) 93 03/18/23 05:00 94 121/61 (89) 92 OxyMask 10.00 03/18/23 05:00 93 121/61 (89) 91 OxyMask 10.00 03/18/23 04:45 124/63 (81) 03/18/23 04:30 95 120/56 (74) 91 OxyMask 10.00 03/18/23 04:20 91 OxyMask 10.00 03/18/23 04:15 96 106/67 (84) 91 OxyMask 10.00 03/18/23 04:00 97 122/69 (82) 92 OxyMask 10.00 03/18/23 04:00 97 122/69 (82) 92 OxyMask 10.00 03/18/23 03:54 36.5 03/18/23 03:00 104 137/70 (89) 93 OxyMask 10.00 03/18/23 02:00 101/65 (73) OxyMask 6.00 03/18/23 01:45 103/50 (70) OxyMask 03/18/23 01:30 105 113/58 (90) 94 OxyMask 6.00 03/18/23 01:00 105 114/71 (85) 94 OxyMask 3.00 03/18/23 01:00 105 03/18/23 00:50 116 94/58 (70) 94 OxyMask 3.00 03/18/23 00:43 129 78/36 03/18/23 00:00 133 75/33 (46) 93 OxyMask 3.00 03/18/23 00:00 36.2 03/17/23 23:59 90 OxyMask 6.00 03/17/23 23:36 129 86 OxyMask 3.00 03/17/23 23:30 125 73/40 (53) 97 Nasal Cannula 3.00 03/17/23 23:26 134 80/57 (74) 93 Nasal Cannula 3.00 03/17/23 23:15 138 72/64 (68) 91 Nasal Cannula 03/17/23 23:08 137 95/48 (59) 94 03/17/23 23:00 156 71/50 (56) 93 Nasal Cannula 03/17/23 22:45 138 93 03/17/23 22:30 140 88/43 (53) 93 Nasal Cannula 3.00 03/17/23 22:15 130 92 03/17/23 22:00 128 91/59 (69) 94 Nasal Cannula 3.00 03/17/23 21:45 109 94 03/17/23 21:30 109 93 03/17/23 21:15 109 93 03/17/23 21:00 110 116/61 (78) 93 Nasal Cannula 3.00 03/17/23 20:45 108 93 03/17/23 20:30 111 92 03/17/23 20:05 91 Nasal Cannula 3.00 03/17/23 20:00 106 104/60 (76) 93 Nasal Cannula 3.00 03/17/23 19:00 111 03/17/23 19:00 36.5 111 107/70 (80) 96 Nasal Cannula 3.00 03/17/23 18:50 94 Nasal Cannula 3.00 03/17/23 18:00 111 112/62 (79) 94 Nasal Cannula 3.00 03/17/23 17:00 110 107/65 (77) 92 Nasal Cannula 3.00 03/17/23 16:04 92 Nasal Cannula 3.00 03/17/23 16:00 109 128/69 (91) 95 Nasal Cannula 3.00 03/17/23 16:00 36.1 Nasal Cannula 3.00 03/17/23 15:30 97 Nasal Cannula 3.00 03/17/23 15:00 105 104/55 (71) 90 Nasal Cannula 3.00 03/17/23 14:00 105 114/64 (81) 93 Nasal Cannula 3.00 03/17/23 13:00 105 123/68 (86) 92 Nasal Cannula 3.00 03/17/23 12:55 105 03/17/23 12:01 94 Nasal Cannula 3.00 03/17/23 12:00 105 129/73 (91) 91 Nasal Cannula 3.00 03/17/23 11:39 35.7 Nasal Cannula 3.00 03/17/23 11:00 105 139/82 (101) 94 Nasal Cannula 3.00 03/17/23 10:53 93 Nasal Cannula 3.00 03/17/23 10:00 105 113/70 (84) 92 Nasal Cannula 3.00 03/17/23 09:12 35.7 101 95 03/17/23 09:00 105 110/57 (74) 93 Nasal Cannula 3.00 03/17/23 08:00 101 123/73 (90) 95 Nasal Cannula 3.00 I & O 03/18/23 07:00 Intake Total 2600 ml Output Total 715 ml Balance 1885 ml Height & Weight Height: 5'3.00" Weight: 140lbs. 0.0oz. 63.382649kj; 28.80 BMI Method:Stated General Appearance: No Apparent Distress, Mild Distress, Other (more lethargic than usual) HEENT: PERRL/EOMI Neck: Full Range of Motion Respiratory: Chest Non Tender, Decreased Breath Sounds, Rhonci Cardiovascular: Regular Rate, Rhythm, Irregularly Irregular Capillary Refill: Less Than 3 Seconds Gastrointestinal: normal bowel sounds, non tender, soft, tenderness Extremity: Normal Capillary Refill, Pedal Edema (+3, has gained 5 lbs in past few days) Neurologic/Psychiatric: Disoriented Skin: Normal Color Lymphatic: No Adenopathy Results Lab Laboratory Tests 03/16/23 15:20 03/17/23 04:05 03/18/23 04:05 Assessment/Plan Assessment/Plan Urosepsis, improving WBC still high at 24k, VRE in urine, resistant to ampicillin sens to linezolid, will continue along with IV Zosyn A fib-now in sinus, will continue maintenance IV amiodarone for now coaguloapthy-Eliquis on hold family to talk about goals of care If can get off levo will stop IV femoral line but has difficult access Critical Care: Critically Ill Patient Time spent with patient (mins): 25 TAMIKA RUSSO MD Mar 18, 2023 07:55
[2023-03-18] MEDS: ALBUMIN 25% 25 GM/100 ML 100 ML IV SCH ×3 (08:37→23:34)
[2023-03-18] MEDS: PANTOPRAZOLE 40 MG (PROTONIX) VIAL IV SCH (08:37)
[2023-03-18] MEDS: LINEZOLID IVPB 300 ML IV SCH ×2 (08:38→20:10)
[2023-03-18] MEDS: SENNOSIDES 8.6 MG (SENOKOT) TAB PO SCH ×2 (08:38→20:05)
[2023-03-18] MEDS: DOCUSATE SODIUM 100 MG (COLACE) CAP PO SCH ×2 (08:38→20:04)
--- NOTE | 2023-03-18 09:52 | Progress Note - Hospitalist ---
Subjective HPI/CC On Admission Date Seen by Provider: Mar 18, 2023 Cathleen Kay is a 77 year old female with PMH HTN, asthma, SVT, COPD, chronic respiratory failure with hypoxia, DVT/PE, who presented with altered mental status. She has been confused and weak for quite a while according to family. She is able to wake up and answer questions appropriately for me. She is hard of hearing. She denies pain. She has had recurrent illnesses and hospitalizations since December. At that time, she was hospitalized at [facility] with respiratory failure. An extensive workup was unrevealing for the cause of her respiratory failure so she was transferred to [facility] in [place]. She was eventually found to have Pseudomonas pneumonia and cavitary abscess. She was treated with Cefepime. Upon discharge, she came to the inpatient rehab unit at [facility]. She was unable to tolerate the therapy and was discharged to [facility]. Hospice was recommended at that time. Her daughter did not think she was getting the therapy she needed so she discharged her and took her home. According to family, she continued to worsen at home. She was taken to the ER on 03/01 and she was treated for dehydration. A UA at that time ended up growing VRE. There was a hospice evaluation scheduled for the following Friday according to the ER note. She returned to the ER on 03/03 and was found to have a DVT/PE. She was transferred to [facility] on 03/04 for thrombectomy. She had continued confusion and weakness according to family. A UA was evantually checked and she was found to have VRE. She was given one dose of IV Linezolid prior to discharge. She was discharged to [facility] on oral Linezolid. She was quickly sent to the ER due to poor condition and the family was reportedly told that she may be needing end of life care. She was brought to the [facility] ER and admitted with sepsis due to UTI. Subjective/Events-last exam Pt lying in bed. Opening eyes but not really communicating. Discussed my concerns with her regarding her condition and now the complications with her being in a fib and on pressors. He expressed understanding and then asks about getting her a feeding tube. Discussed plan for trialing NGT to see how she tolerates food. Focused Exam Time of Focused Exam: 19:25 Objective Exam Vital Signs Vital Signs Date Time Temp Pulse Resp B/P (MAP) Pulse Ox O2 Delivery O2 Flow Rate FiO2 03/18/23 12:21 95 03/18/23 11:42 36.0 03/18/23 10:45 94 OxyMask 8.00 03/18/23 10:00 131/72 (91) 03/17/23 04:00 16 03/14/23 21:00 28 Capillary Refill : Less Than 3 Seconds General Appearance: No Apparent Distress, Chronically ill Respiratory: No Accessory Muscle Use, Decreased Breath Sounds, Other (on 7lpm) Cardiovascular: Irregularly Irregular Gastrointestinal: Non Tender, Soft; No Distended Neurologic/Psychiatric: Alert, Other (did not speak, reached to hold 's hand though) Results/Procedures Lab Laboratory Tests 03/18/23 04:05 Patient resulted labs reviewed. Imaging: Reviewed Imaging Report Assessment/Plan Assessment and Plan Assess & Plan/Chief Complaint Severe sepsis due to UTI VRE infection Septic encephalopathy Recent Pseudomonas pneumonia and lung abscess Recent urine culture with VRE, repeat cultures with Enterococcus faecium Continue Linezolid and Zosyn TeleICU following Leukocytosis up today- add Diflucan for yeast in urine A fib Now on amiodarone gtt Became hypotensive and eICU ordered levophed Cardiology consulted, appreciate recs INR remains supratherapeutic Hyperbilirubinemia Supratherapeutic INR No history of liver disease ammonia level 33 liver usg suggestive of acute cholecystitis- Dr An spoke with family and reportedly not a surgical candidate Continue IV abx Debility Recurrent hospitalizations Severe protein calorie malnutrition Hypoalbuminemia Poor prognosis Goals of care discussion Palliative care consulted PT/OT Albumin Ensure as able Remeron/Trazodone if able to take PO Dietary consult- NGT place for feeds DVT/PE Supratherapeutic INR Lovenox held COPD/Asthma Chronic respiratory failure with hypoxia HTN Hold antihypertensives MAT protocol Critical Care Critically Ill Patient ARSLAN COHEN MD Mar 18, 2023 09:52
[2023-03-18] MEDS: FLUCONAZOLE 100 MG/50 ML 50 ML IV SCH (13:06)
[2023-03-18] MEDS ORDERED: SCOPOLAMINE 1.5 MG (TRANSDERM-SCOP) PATCH TD NR (13:30)
[2023-03-18] MEDS ORDERED: ACETAMINOPHEN 325 MG SUPP (TYLENOL) PR PRN (13:30)
--- NOTE | 2023-03-18 14:45 | Consultation-Cardiology ---
HPI-Cardiology Cardiology Consultation: Date of Consultation 03/18/23 Date of Admission Attending Physician Tim Michael MD Admitting Physician Admitting Physician: Марина Lentz MD Attending Physician: Марина Lentz MD Consulting Physician RACHID MILLAN MD HPI: Time Seen by a Provider: 14:45 Chief Complaint: Reason for consultation: 1. Atrial fibrillation 2. Hypotension 77 year old female with PMH HTN, asthma, SVT, COPD, chronic respiratory failure with hypoxia, DVT/PE, who presented to the emergency room with altered mental status. She has been confused and weak for quite a while according to family. She has been found to have a urinary tract infection and is being treated for the same. Last night, she was noted to be in atrial fibrillation with rapid ventricular rate. She was started on an amiodarone drip. This resulted in hypotension necessitating the use of low-dose norepinephrine drip. On this regimen, she is tolerating IV amiodarone gtt and has reverted to normal sinus rhythm. The patient has not been awake and verbal today. Cardiology consultation has been obtained due to atrial fibrillation with rapid ventricular rate. Multiple medical problems and hospitalizations since December 2022. In December 2022, she was hospitalized at [facility], [place], operated by [facility] with respiratory failure. An extensive workup was unrevealing for the cause of her respiratory failure so she was transferred to [facility] in [place]. She was eventually found to have Pseudomonas pneumonia and cavitary abscess. She was treated with Cefepime. Upon discharge, she came to the inpatient rehab unit at [facility], [place], operated by [facility]. She was unable to tolerate the therapy and was discharged to [facility]. Hospice was recommended at that time. Her daughter did not think she was getting the therapy she needed so she discharged her and took her home. According to family, she co ntinued to worsen at home. She was taken to the ER on 03/01 and she was treated for dehydration. A UA at that time ended up growing VRE. There was a hospice evaluation scheduled for the following Friday according to the ER note. She returned to the ER on 03/03 and was found to have a DVT/PE. She was transferred to [facility] on 03/04 for thrombectomy. She had continued confusion and weakness according to family. A UA was evantually checked and she was found to have VRE. She was given one dose of IV Linezolid prior to discharge. She was discharged to [facility] on oral Linezolid. She was quickly sent to the ER due to poor condition and the family was reportedly told that she may be needing end of life care. She was brought to the [facility] [place] operated by [facility] ER and admitted with sepsis due to UTI. Source: patient, family Review of Systems-Cardiology All Other Systems Reviewed Negative Unless Noted: Yes (Negative excepted noted.) QOB-Jgjbyc-Fupnqv Hx Patient Social History Former smoker/When Quit: Jul 04, 1983 2nd Hand Smoke Exposure: Yes Alcohol Use?: No Pt feels they are or have been: No Immunizations Up To Date Tetanus Booster (TDap): Unknown Past Medical History PMH As described under Assessment. Family Medical History Family History: Dementia 19 MOTHER, , Age:88, Onset:60 years & older FH: CAD (coronary artery disease) 19 FATHER, , Age:64, Onset:60 years & older FH: CHF (congestive heart failure) 19 MOTHER, , Age:88, Onset:60 years & older Myocardial infarction 19 MOTHER, , Age:88, Onset:50's - 60 No Family History of: AIDS Abdominal aortic aneurysm Rock's disease Alcoholism Alzheimer's disease Aphasia Arthritis Asthma Cancer of mouth Cardiovascular disease Cataracts Colon cancer Completed stroke Congenital disease Congenital heart disease Coronary thrombosis Cystic fibrosis Deafness or hearing loss Diabetes mellitus Drug abuse Dysphasia Fibrocystic disease of breast Gastroenteritis Glaucoma Headache disorder Hypercholesterolemia 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 Infertility Kidney disease Neoplasm Not obtainable due to adoption Osteoporosis Parkinson's disease Prostate cancer Psychosocial problem Respiratory disorder Seizure disorder Severe allergy Thyroid disease Tuberculosis Visual disorder Allergies and Home Medications Allergies Coded Allergies: codeine (Verified Allergy, Unknown, 03/23/08) gatifloxacin (Verified Allergy, Unknown, 03/23/08) nitrofurantoin (Verified Allergy, Unknown, 03/23/08) Patient Home Medication List Home Medication List Reviewed: Yes Acetaminophen (Tylenol Extra Strength) 500 Mg Tablet, 500 MG PO Q6H PRN for PAIN-MILD (1-4), (Reported) Entered as Reported by: NEO PHELAN on 03/17/23 1231 Last Action: Reviewed Albuterol Sulfate (Ventolin Hfa) 1 Puff Puff, 2 PUFF INH Q6H PRN for SHORTNESS OF BREATH, (Reported) Entered as Reported by: NEO PHELAN on 03/17/231230 Last Action: Reviewed Apixaban (Eliquis) 5 Mg Tablet, 5 MG PO BID, (Reported) Entered as Reported by: NEO PHELAN on 03/17/231230 Last Action: Reviewed Aspirin (Aspirin) 325 Mg Tablet, 325 MG PO DAILY, (Reported) Entered as Reported by: NEO PHELAN on 03/17/231230 Last Action: Reviewed Ciprofloxacin HCl/Dexameth (Ciproflox-Dexameth Otic Susp) 0.3 %-0.1 % Drops.susp, 4 DROPS OT BID, (Reported) Entered as Reported by: NEO PHELAN on 03/17/231230 Last Action: Reviewed Cyanocobalamin/Folic Acid (Vitamin Q51-Gwcjf Acid Tablet) 500 Mcg-400 Mcg Tablet, 1 EACH PO DAILY, (Reported) Entered as Reported by: NEO PHELAN on 03/17/231230 Last Action: Reviewed Fluconazole (Fluconazole) 200 Mg Tablet, 200 MG PO DAILY, (Reported) Entered as Reported by: NEO PHELAN on 03/17/231230 Last Action: Reviewed Hydrocodone/Acetaminophen (Hydrocodone-Acetamin 10-325 mg) 10 Mg-325 Mg Tablet, 1 EACH PO Q8H PRN for PAIN-MODERATE (5-7), (Reported) Entered as Reported by: NEO PHELAN on 03/17/231230 Last Action: Reviewed Hydroxyzine HCl (Hydroxyzine HCl) 10 Mg Tablet, 10 MG PO Q8H PRN for ANXIETY, (Reported) Entered as Reported by: NEO PHELAN on 03/17/231230 Last Action: Reviewed Levalbuterol HCl (Levalbuterol HCl) 1.25 Mg/3 Ml Vial.neb, 1.25 MG IH Q6H PRN for SHORTNESS OF BREATH, (Reported) Entered as Reported by: NEO PHELAN on 03/17/231230 Last Action: Reviewed Linezolid (Linezolid) 600 Mg Tablet, 600 MG PO BID, (Reported) Entered as Reported by: NEO PHELAN on 03/17/231230 Last Action: Reviewed Lisinopril (Lisinopril) 10 Mg Tablet, 10 MG PO DAILY, (Reported) Entered as Reported by: NEO PHELAN on 03/17/231230 Last Action: Reviewed Loratadine (Loratadine Allergy) 5 Mg/5 Ml Solution, 5 MG PO DAILY, (Reported) Entered as Reported by: NEO PHELAN on 03/17/231230 Last Action: Reviewed Lorazepam (Ativan) 0.5 Mg Tablet, 0.5 MG PO Q6H PRN for ANXIETY, (Reported) Entered as Reported by: NEO PHELAN on 03/17/231230 Last Action: Reviewed Metoprolol Succinate (Metoprolol Succinate) 50 Mg Tab.er.24h, 50 MG PO DAILY, (Reported) Entered as Reported by: NEO PHELAN on 03/17/231230 Last Action: Reviewed Naloxone HCl (Naloxone HCl) 4 Mg/Actuation [place], 4 MG NS UD PRN for OVERDOSE, (Reported) Entered as Reported by: NEO PHELAN on 03/17/231230 Last Action: Reviewed Pantoprazole Sodium (Pantoprazole Sodium) 40 Mg Tablet.dr, 40 MG PO DAILY, (Reported) Entered as Reported by: NEO PHELAN on 03/17/231230 Last Action: Reviewed Potassium Chloride (Potassium Chloride) 20 Meq Packet, 20 MEQ PO DAILY, (Reported) Entered as Reported by: NEO PHELAN on 03/17/231230 Last Action: Reviewed Discontinued Medications Acetaminophen (Acetaminophen) 500 Mg Tablet, 1,000 MG PO Q6H PRN for PAIN-MILD (1-4) Discontinued Reason: Duplicate Order Prescribed by: ANASTACIO KEY on 02/21/23621 Last Action: Discontinued Albuterol Sulfate (Ventolin Hfa) 1 Puff Puff, 2 PUFF INH QID PRN for SHORTNESS OF BREATH Discontinued Reason: Duplicate Order Prescribed by: ANASTACIO KEY on 02/21/23621 Last Action: Discontinued Aspirin (Aspirin) 325 Mg Tablet, 325 MG PO DAILY Discontinued Reason: Duplicate Order Prescribed by: ANASTACIO KEY on 02/21/23621 Last Action: Discontinued Diltiazem HCl (Diltiazem 24Hr ER) 240 Mg Cap.er.24h, 240 MG PO DAILY@0900 Discontinued Reason: Duplicate Order Prescribed by: ANASTACIO KEY on 02/21/23621 Last Action: Discontinued Guaifenesin (Mucinex) 600 Mg Tab.er.12h, 1,200 MG PO BID Discontinued Reason: Duplicate Order Prescribed by: ANASTACIO KEY on 02/21/23621 Last Action: Discontinued Heparin Sodium,Porcine (Heparin Sodium) 5,000 Unit/Ml Vial, 5,000 UNITS SC Q12HR Discontinued Reason: Duplicate Order Prescribed by: ANASTACIO KEY on 02/21/23621 Last Action: Discontinued Hydroxyzine HCl (Hydroxyzine HCl) 10 Mg Tablet, 10 MG PO TID PRN for ANXIETY Discontinued Reason: Duplicate Order Prescribed by: ANASTACIO KEY on 02/21/23621 Last Action: Discontinued Lactobacillus Acidophilus/Pect (Acidophilus-Pectin Capsule) 75 Million Cell-100 Mg Capsule, 2 EACH PO DAILY Discontinued Reason: Duplicate Order Prescribed by: ANASTACIO KEY on 02/21/23621 Last Action: Discontinued Lisinopril (Lisinopril) 10 Mg Tablet, 30 MG PO DAILY@0900 Discontinued Reason: Duplicate Order Prescribed by: ANASTACIO KEY on 02/21/23621 Last Action: Discontinued Lorazepam (Ativan) 0.5 Mg Tablet, 0.5 MG PO TID PRN for ANXIETY Discontinued Reason: Duplicate Order Prescribed by: ANASTACIO KEY on 02/21/23621 Last Action: Discontinued Montelukast Sodium (Montelukast Sodium) 10 Mg Tablet, 10 MG PO HS Discontinued Reason: Duplicate Order Prescribed by: ANASTACIO KEY on 02/21/23621 Last Action: Discontinued Ondansetron (Ondansetron Odt) 4 Mg Tab.rapdis, 4 MG PO Q6H PRN for NAUSEA/VOMITING-1ST LINE Discontinued Reason: Duplicate Order Prescribed by: ANASTACIO KEY on 02/21/23621 Last Action: Discontinued Pantoprazole Sodium (Pantoprazole Sodium) 40 Mg Tablet.dr, 40 MG PO DAILY Discontinued Reason: Duplicate Order Prescribed by: ANASTACIO KEY on 02/21/23621 Last Action: Discontinued Sertraline HCl (Sertraline HCl) 50 Mg Tablet, 100 MG PO DAILY Discontinued Reason: Duplicate Order Prescribed by: ANASTACIO KEY on 02/21/23621 Last Action: Discontinued Trazodone HCl (Trazodone HCl) 50 Mg Tablet, 50 MG PO HS Discontinued Reason: Duplicate Order Prescribed by: ANASTACIO KEY on 02/21/23621 Last Action: Discontinued Umeclidinium [place] (Incruse Ellipta) 62.5 Mcg/Actuation Blst.w.dev, 0 INH IH DAILY@0800 Discontinued Reason: Duplicate Order Prescribed by: ANASTACIO Gerry SHAHID on 02/21/23621 Last Action: Discontinued Exam Vital Signs Vital Signs Date Time Temp Pulse Resp B/P (MAP) Pulse Ox O2 Delivery O2 Flow Rate FiO2 03/18/23 15:00 89 107/61 (76) 96 OxyMask 5.00 03/18/23 11:42 36.0 03/17/23 04:00 16 03/14/23 21:00 28 Physical Exam Patient lethargic and unable to provide any history. Saturating adequately on facemask S1 and S2 regular. No murmur, S3 or S4 noted Chest clear to auscultation anteriorly Bilateral upper extremity edema. Mild lower extremity edema Neurological examination grossly nonfocal Labs Laboratory Tests Test 03/18/23 04:05 Range/Units White Blood Count 24.4 H 4.3-11.0 10^3/uL Red Blood Count 2.89 L 3.80-5.11 10^6/uL Hemoglobin 8.7 L 11.5-16.0 g/dL Hematocrit 28 L 35-52 % Mean Corpuscular Volume 98 80-99 fL Mean Corpuscular Hemoglobin 30 25-34 pg Mean Corpuscular Hemoglobin Concent 31 L 32-36 g/dL Red Cell Distribution Width 22.9 H 10.0-14.5 % Platelet Count 263 130-400 10^3/uL Mean Platelet Volume 9.8 9.0-12.2 fL Immature Granulocyte % (Auto) 7 % Neutrophils (%) (Auto) 73 42-75 % Lymphocytes (%) (Auto) 12 12-44 % Monocytes (%) (Auto) 6 0-12 % Eosinophils (%) (Auto) 2 0-10 % Basophils (%) (Auto) 1 0-10 % Neutrophils # (Auto) 17.8 H 1.8-7.8 10^3/uL Lymphocytes # (Auto) 2.9 1.0-4.0 10^3/uL Monocytes # (Auto) 1.5 H 0.0-1.0 10^3/uL Eosinophils # (Auto) 0.4 H 0.0-0.3 10^3/uL Basophils # (Auto) 0.2 H 0.0-0.1 10^3/uL Immature Granulocyte # (Auto) 1.7 H 0.0-0.1 10^3/uL Prothrombin Time 43.8 H 12.2-14.7 SEC INR Comment 4.8 H 0.8-1.4 Sodium Level 141 135-145 MMOL/L Potassium Level 3.8 3.6-5.0 MMOL/L Chloride Level 112 H 98-107 MMOL/L Carbon Dioxide Level 21 21-32 MMOL/L Anion Gap 8 5-14 MMOL/L Blood Urea Nitrogen 7 7-18 MG/DL Creatinine 0.67 0.60-1.30 MG/DL Estimat Glomerular Filtration Rate 90 BUN/Creatinine Ratio 10 Glucose Level 180 H 70-105 MG/DL Calcium Level 7.8 L 8.5-10.1 MG/DL Corrected Calcium 8.2 L 8.5-10.1 MG/DL Magnesium Level 2.0 1.6-2.4 MG/DL Total Bilirubin 3.1 H 0.1-1.0 MG/DL Aspartate Amino Transf (AST/SGOT) 31 5-34 U/L Alanine Aminotransferase (ALT/SGPT) 25 0-55 U/L Alkaline Phosphatase 146 H 40-136 U/L Total Protein 4.6 L 6.4-8.2 GM/DL Albumin 3.5 3.2-4.5 GM/DL Radiology Telemetry self reviewed. Sinus rhythm at present Telemetry overnight showed atrial fibrillation with rapid ventricular rate. ECG Impression ECG Initial ECG Impression Date: Mar 18, 2023 Comment EKG 03/14/2023 self reviewed. Normal sinus rhythm. Cannot exclude antecedent inferior wall infarction. Nonspecific ST and T wave abnormalities. Chest x-ray 03/14/2023 self reviewed. Haziness right paracardiac region as per my interpretation. Small left pleural effusion A/P-Cardiology Assessment/Admission Diagnosis 1. Atrial fibrillation with rapid ventricular rate. Patient has reverted to sinus rhythm. Continue IV amiodarone with low-dose IV norepinephrine as needed. Continue anticoagulation with oral apixaban. 2. Recent DVTs. Continue apixaban 3. Urinary tract infection/sepsis/altered mental status. As per primary service 4. Failure to thrive/recent pulmonary infections. 5. History of supraventricular tachycardia. Continue telemetry monitoring RACHID MILLAN MD Mar 18, 2023 14:45
--- NOTE | 2023-03-18 14:57 | Progress Note ---
Subjective Date Seen by a Provider: Mar 18, 2023 Time Seen by a Provider: 14:00 Subjective/Events-last exam patient overall status/cognition unchanged. likely high aspiration risk. talked in detail with today and he wants to proceed with full code. Focused Exam Time of Focused Exam: 19:25 Objective Exam Vital Signs Date Time Temp Pulse Resp B/P (MAP) Pulse Ox O2 Delivery O2 Flow Rate FiO2 03/18/23 14:08 OxyMask 5.00 03/18/23 14:00 92 121/70 (87) 99 OxyMask 8.00 03/18/23 13:00 97 134/70 (91) 96 OxyMask 8.00 03/18/23 12:35 91 OxyMask 8.00 03/18/23 12:21 95 03/18/23 12:00 96 135/73 (93) 95 OxyMask 8.00 03/18/23 11:42 36.0 03/18/23 11:00 96 140/73 (95) 95 OxyMask 8.00 03/18/23 10:45 94 OxyMask 8.00 03/18/23 10:00 97 131/72 (91) 95 OxyMask 8.00 03/18/23 09:29 87 OxyMask 8.00 03/18/23 09:00 93 117/55 (75) 95 OxyMask 7.00 03/18/23 08:00 93 125/81 (96) 96 OxyMask 7.00 03/18/23 07:47 36.2 03/18/23 07:42 91 OxyMask 10.00 03/18/23 07:36 OxyMask 7.00 03/18/23 07:30 OxyMask 7.00 03/18/23 07:27 95 OxyMask 9.00 03/18/23 07:10 89 03/18/23 07:00 89 116/87 (97) 92 OxyMask 10.00 03/18/23 06:00 91 114/64 (81) 92 OxyMask 10.00 03/18/23 05:15 94 119/53 (80) 93 03/18/23 05:00 94 121/61 (89) 92 OxyMask 10.00 03/18/23 05:00 93 121/61 (89) 91 OxyMask 10.00 03/18/23 04:45 124/63 (81) 03/18/23 04:30 95 120/56 (74) 91 OxyMask 10.00 03/18/23 04:20 91 OxyMask 10.00 03/18/23 04:15 96 106/67 (84) 91 OxyMask 10.00 03/18/23 04:00 97 122/69 (82) 92 OxyMask 10.00 03/18/23 04:00 97 122/69 (82) 92 OxyMask 10.00 03/18/23 03:54 36.5 03/18/23 03:00 104 137/70 (89) 93 OxyMask 10.00 03/18/23 02:00 101/65 (73) OxyMask 6.00 03/18/23 01:45 103/50 (70) OxyMask 03/18/23 01:30 105 113/58 (90) 94 OxyMask 6.00 03/18/23 01:00 105 114/71 (85) 94 OxyMask 3.00 03/18/23 01:00 105 03/18/23 00:50 116 94/58 (70) 94 OxyMask 3.00 03/18/23 00:43 129 78/36 03/18/23 00:00 133 75/33 (46) 93 OxyMask 3.00 03/18/23 00:00 36.2 03/17/23 23:59 90 OxyMask 6.00 03/17/23 23:36 129 86 OxyMask 3.00 03/17/23 23:30 125 73/40 (53) 97 Nasal Cannula 3.00 03/17/23 23:26 134 80/57 (74) 93 Nasal Cannula 3.00 03/17/23 23:15 138 72/64 (68) 91 Nasal Cannula 03/17/23 23:08 137 95/48 (59) 94 03/17/23 23:00 156 71/50 (56) 93 Nasal Cannula 03/17/23 22:45 138 93 03/17/23 22:30 140 88/43 (53) 93 Nasal Cannula 3.00 03/17/23 22:15 130 92 03/17/23 22:00 128 91/59 (69) 94 Nasal Cannula 3.00 03/17/23 21:45 109 94 6/26/23 21:30 109 93 03/17/23 21:15 109 93 03/17/23 21:00 110 116/61 (78) 93 Nasal Cannula 3.00 03/17/23 20:45 108 93 03/17/23 20:30 111 92 03/17/23 20:05 91 Nasal Cannula 3.00 03/17/23 20:00 106 104/60 (76) 93 Nasal Cannula 3.00 03/17/23 19:00 111 03/17/23 19:00 36.5 111 107/70 (80) 96 Nasal Cannula 3.00 03/17/23 18:50 94 Nasal Cannula 3.00 03/17/23 18:00 111 112/62 (79) 94 Nasal Cannula 3.00 03/17/23 17:00 110 107/65 (77) 92 Nasal Cannula 3.00 03/17/23 16:04 92 Nasal Cannula 3.00 03/17/23 16:00 109 128/69 (91) 95 Nasal Cannula 3.00 03/17/23 16:00 36.1 Nasal Cannula 3.00 03/17/23 15:30 97 Nasal Cannula 3.00 03/17/23 15:00 105 104/55 (71) 90 Nasal Cannula 3.00 I & O 03/18/23 07:00 Intake Total 2600 ml Output Total 715 ml Balance 1885 ml Capillary Refill : Less Than 3 Seconds General Appearance: No Apparent Distress HEENT: TMs Normal Neck: Full Range of Motion Respiratory: Chest Non Tender, Decreased Breath Sounds Cardiovascular: Regular Rate, Rhythm Gastrointestinal: soft, tenderness Extremity: Normal Capillary Refill Neurologic/Psychiatric: Alert Skin: Normal Color Lymphatic: No Adenopathy Results Lab Laboratory Tests 03/18/23 04:05: White Blood Count 24.4H, Red Blood Count 2.89L, Hemoglobin 8.7L, Hematocrit 28L, Mean Corpuscular Volume 98, Mean Corpuscular Hemoglobin 30, Mean Corpuscular Hemoglobin Concent 31L, Red Cell Distribution Width 22.9H, Platelet Count 263, Mean Platelet Volume 9.8, Immature Granulocyte % (Auto) 7, Neutrophils (%) (Auto) 73, Lymphocytes (%) (Auto) 12, Monocytes (%) (Auto) 6, Eosinophils (%) (Auto) 2, Basophils (%) (Auto) 1, Neutrophils # (Auto) 17.8H, Lymphocytes # (Auto) 2.9, Monocytes # (Auto) 1.5H, Eosinophils # (Auto) 0.4H, Basophils # (Auto) 0.2H, Immature Granulocyte # (Auto) 1.7H, Prothrombin Time 43.8H, INR Comment 4.8H, Sodium Level 141, Potassium Level 3.8, Chloride Level 112H, Carbon Dioxide Level 21, Anion Gap 8, Blood Urea Nitrogen 7, Creatinine 0.67, Estimat Glomerular Filtration Rate 90, BUN/Creatinine Ratio 10, Glucose Level 180H, Calcium Level 7.8L, Corrected Calcium 8.2L, Magnesium Level 2.0, Total Bilirubin 3.1H, Aspartate Amino Transf (AST/SGOT) 31, Alanine Aminotransferase (ALT/SGPT) 25, Alkaline Phosphatase 146H, Total Protein 4.6L, Albumin 3.5 Microbiology 03/14/23 MRSA Screen - Final, Complete MRSA not isolated 03/14/23 Blood Culture - Preliminary, Resulted No growth 03/14/23 Urine Culture - Final, Complete Enterococcus faecium YEAST Assessment/Plan Assessment/Plan Assess & Plan/Chief Complaint UTI, pneumonia, anemia and multisystem organ failure. anemia of unknown etiology. tx PRBC. will continue to monitor and endoscopy if indicated and family amenable. family also mentioned PEG tube. has acute on chronic calculous cholecystitis. at this time patient is very poor surgical candidate and with hx of COPD and current pneumonia patient may need prolonged ventilation which family states she wouldn't want when she was lucid. who is next of kin stated he would like to proceed with groshong port and PEG for alimentation. will schedule when INR closer to tolerable range. ERROL ROSADO MD Mar 18, 2023 14:57
[2023-03-18] MEDS: KETOROLAC 15 MG/ML VIAL IVP PRN (18:34)
[2023-03-18] MEDS: traZODone 50 MG (DESYREL) TAB PO SCH (20:04)
[2023-03-18] MEDS: MIRTAZAPINE 15 MG (REMERON) TAB PO SCH (20:04)
[2023-03-18] MEDS ORDERED: NS IV 1000 ML 1,000 ML IV SCH (22:15)
[2023-03-19] MEDS: NOREPINEPHRINE 8 MG/250 ML 250 ML IV SCH ×3 (01:30→20:22)
[2023-03-19] MEDS ORDERED: FUROSEMIDE 40 MG/4 ML INJ (LASIX) IVP ONE (01:45)
[2023-03-19 05:17] LABS: BASOPHILS # (AUTO) 0.2 10^3/uL (0.0-0.1); BASOPHILS % (AUTO) 1 % (0-10); EOSINOPHILS % (AUTO) 0 % (0-10); HEMATOCRIT 28 % (35-52); HEMOGLOBIN 8.3 g/dL (11.5-16.0); LYMPHOCYTES # (AUTO) 1.9 10^3/uL (1.0-4.0); LYMPHOCYTES % (AUTO) 6 % (12-44); MEAN CORPUSCULAR HEMOGLOBIN 30 pg (25-34); MEAN CORPUSCULAR HGB CONC 30 g/dL (32-36); MEAN CORPUSCULAR VOLUME 101 fL (80-99); MEAN PLATELET VOLUME 10.2 fL (9.0-12.2); MONOCYTES # (AUTO) 1.2 10^3/uL (0.0-1.0); MONOCYTES % (AUTO) 4 % (0-12); NEUTROPHILS % (AUTO) 81 % (42-75); PLATELET COUNT 208 10^3/uL (130-400)
[2023-03-19 05:35] LABS: ALBUMIN 3.7 GM/DL (3.2-4.5); BILIRUBIN,TOTAL 2.9 MG/DL (0.1-1.0); CALCIUM 7.4 MG/DL (8.5-10.1); CREATININE SERUM 0.83 MG/DL (0.60-1.30); MAGNESIUM 1.7 MG/DL (1.6-2.4); POTASSIUM 4.2 MMOL/L (3.6-5.0); TOTAL PROTEIN 4.8 GM/DL (6.4-8.2)
[2023-03-19 05:41] LABS: INR 4.9 (0.8-1.4); PROTHROMBIN TIME PATIENT 44.4 SEC (12.2-14.7)
[2023-03-19] MEDS: MAGNESIUM 1 GM/100 ML IVPB 100 ML IV SCH ×5 (05:41→09:14)
[2023-03-19] MEDS: KCL 20 MEQ TAB (K-DUR) PO SCH (05:41)
[2023-03-19] MEDS: POTASSIUM CL 10MEQ/50ML IVPB 50 ML IV SCH (05:41)
[2023-03-19 05:58] LABS: WHITE BLOOD COUNT 32.1 10^3/uL (4.3-11.0)
[2023-03-19 06:55] LABS: EOSINOPHILS % (MANUAL) 1 %; LYMPHOCYTES % (MANUAL) 8 %; MONOCYTES % (MANUAL) 2 %; NEUTROPHILS % (MANUAL) 89 %
[2023-03-19 06:56] LABS: ANISOCYTOSIS MODERATE; HYPOCHROMASIA MODERATE; NUCLEATED RED BLOOD CELLS 2; PLATELET ESTIMATE ADEQUATE; POLYCHROMASIA SLIGHT
[2023-03-19] MEDS: RT-ALBUTEROL/IPRATROPIUM 3 ML (DUONEB) VIAL INH SCH ×4 (07:02→18:36)
[2023-03-19] MEDS: LINEZOLID IVPB 300 ML IV SCH (08:21)
[2023-03-19] MEDS: DOCUSATE SODIUM 100 MG (COLACE) CAP PO SCH ×2 (09:00→20:27)
[2023-03-19] MEDS: ALBUMIN 25% 25 GM/100 ML 100 ML IV SCH ×3 (09:33→23:58)
[2023-03-19] MEDS: PANTOPRAZOLE 40 MG (PROTONIX) VIAL IV SCH (09:33)
--- NOTE | 2023-03-19 09:50 | Tele-ICU Progress Note ---
Subjective Date Seen by a Provider: Mar 19, 2023 Time Seen by a Provider: 09:48 Subjective/Events-last exam (Tele-ICU Physician , Progress Note ) Service provided via interactive audio and video telecommunications E-CARE system to a patient admitted to ICU bed in [facility]. Patient is seen today due to persistent need of ICU care Available chart/ vitals / labs / Images reviewed Video assessment done using teleICU camera, rest of exam as per RN Discussed with RN Events overnight : Afebrile hemodynamically stable Respiratory - 3l I/O =pos Pressors- LEVO Hospital course: (03.14) Admitted a 77y/o with sepsis (recurrent UTI) and possible PNA 6.25- Hb down to 6. - transfusion 1 U pRBC 03/18 - a fib rvr - amio LEVO gtt 03/19- low UPO - 1 L IVF , LEVO 0.25 A/P Shock - on levo , ? septic vs cardiogenic A fib RVR - on amio gtt Recurrent urinary tract infection-cont abg metabolic encephalopathy Leukocytosis - ? leukemoid reaction Elevated INR due to sepsis and Eliquis- still >4 Anemia , Hb 6.3 03/16- -- transfusion 1 U pRBC , sx consulted , PPI Malnutrition , hypoalbuminemia - NOT RECEVING nutritions for > 3 D Recent Acute DVT/PE. - transferred to [facility] in [place] for clot retrieval in [place] - OFF any AC Recommendations Broad-spectrum antibiotics to conrt try to wean off pressors follow elevated INR, no active bleed nutritional status - ? needs tube feeding albumin transfusion for oliguria in face of periferal edema and unrespmsive to IV boluses follow menttal status- no improvement Care goals discussions done on adauly bases bedside MD - in my opinion, patient is a good candidate for comfort measures Lines : right femoral line 03/15 , PICC recently removed , (Central Line Necessity Reviewed) Diane: + OG: Nutrition: NEEDS TO ADRESS Analgesia: Anxiety/ delirium VTE Prophylaxis: NA - coagulopathy Stress Ulcer Prophylaxis: Plans in collaboration with bedside consultants and IM MDs. discussed with Dr Freire Discussed with RN to reach out if any questions or concerns Case and care daily discussed on multidisciplinary rounds ( RN, PharmD, Kick Boxer , Respiratory Therapy, layup worker ) A total of 31 minutes of critical care time was devoted to this patient today, required to treat and/or prevent further deterioration of critical care condition ( as above ) . I am remotely monitoring this patient from another state. I am unable to do the bedside exam, and history/physical and pertinent information is taken from other notes in the computer and bedside staff. Sepsis Event Evaluation Height, Weight, BMI Height: 5'3.00" Weight: 140lbs. 0.0oz. [id number]; 29.89 BMI Method:Stated Focused Exam Time of Focused Exam: 19:25 Exam Exam Patient acknowledged, consented, and participated in this virtual visit which was conducted using real time audio/video Vital Signs Date Time Temp Pulse Resp B/P (MAP) Pulse Ox O2 Delivery O2 Flow Rate FiO2 03/19/23 09:16 78 OxyMask 10.00 03/19/23 09:00 83 117/61 (79) 83 OxyMask 6.00 03/19/23 08:00 84 103/56 (72) 89 OxyMask 6.00 03/19/23 07:38 83 03/19/23 07:30 35.8 OxyMask 6.00 03/19/23 07:03 93 OxyMask 6.00 03/19/23 07:00 83 87/48 (61) 92 OxyMask 6.00 03/19/23 06:15 86 93/53 (66) 92 OxyMask 6.00 03/19/23 05:00 88 95/54 (68) 93 OxyMask 6.00 03/19/23 04:00 88 96/53 (67) 93 OxyMask 6.00 03/19/23 04:00 93 OxyMask 6.00 03/19/23 03:50 36.2 03/19/23 03:00 88 97/54 (68) 92 OxyMask 6.00 03/19/23 02:15 89 110/59 (76) 92 OxyMask 6.00 03/19/23 01:30 87 99/56 03/19/23 01:00 91 103/54 (70) 88 OxyMask 6.00 03/19/23 01:00 91 03/19/23 00:00 35.8 03/19/23 00:00 92 104/56 (72) 89 OxyMask 6.00 6/27/23 23:54 OxyMask 6.00 03/18/23 23:44 93 OxyMask 5.00 03/18/23 23:15 92 101/54 (70) 92 OxyMask 5.00 03/18/23 23:04 OxyMask 5.00 03/18/23 22:30 OxyMask 3.00 03/18/23 22:17 91 95/50 (65) 89 OxyMask 2.00 03/18/23 22:00 OxyMask 2.00 03/18/23 21:00 93 104/57 (73) 91 OxyMask 3.00 03/18/23 20:59 87 99/56 03/18/23 20:00 93 OxyMask 3.00 03/18/23 20:00 92 114/57 (76) 90 OxyMask 3.00 03/18/23 19:43 35.7 03/18/23 19:31 93 OxyMask 2.00 03/18/23 19:30 88 117/63 (81) 94 OxyMask 3.00 03/18/23 19:00 88 03/18/23 19:00 88 86/50 (62) 92 OxyMask 3.00 03/18/23 18:00 87 99/56 (70) 95 OxyMask 3.00 03/18/23 17:00 88 94/53 (67) 94 OxyMask 3.00 03/18/23 16:00 91 OxyMask 5.00 03/18/23 16:00 90 105/62 (76) 92 OxyMask 3.00 03/18/23 15:49 35.8 03/18/23 15:39 OxyMask 2.00 03/18/23 15:35 97 OxyMask 5.00 03/18/23 15:30 OxyMask 3.00 03/18/23 15:00 89 107/61 (76) 96 OxyMask 5.00 03/18/23 14:08 OxyMask 5.00 03/18/23 14:00 92 121/70 (87) 99 OxyMask 8.00 03/18/23 13:00 97 134/70 (91) 96 OxyMask 8.00 03/18/23 12:35 91 OxyMask 8.00 03/18/23 12:21 95 03/18/23 12:00 96 135/73 (93) 95 OxyMask 8.00 03/18/23 11:42 36.0 03/18/23 11:00 96 140/73 (95) 95 OxyMask 8.00 03/18/23 10:45 94 OxyMask 8.00 03/18/23 10:00 97 131/72 (91) 95 OxyMask 8.00 I & O 03/19/23 07:00 Intake Total 3350 ml Output Total 320 ml Balance 3030 ml Height & Weight Height: 5'3.00" Weight: 140lbs. 0.0oz. [id number]; 29.89 BMI Method:Stated General Appearance: No Apparent Distress HEENT: TMs Normal Neck: Full Range of Motion Respiratory: Chest Non Tender, Decreased Breath Sounds Cardiovascular: Regular Rate, Rhythm Capillary Refill: Less Than 3 Seconds Gastrointestinal: soft, tenderness Extremity: Normal Capillary Refill Neurologic/Psychiatric: Alert Skin: Normal Color Lymphatic: No Adenopathy Results Lab Laboratory Tests 03/18/23 04:05 03/19/23 04:47 Assessment/Plan Assessment/Plan 1 LETICIA KAPADIA MD Mar 19, 2023 09:49
--- NOTE | 2023-03-19 10:10 | Oncology Consultation ---
Visit Information Visit Information Date of Admission Mar 14, 2023 at 20:43 Attending Physician iTm Michael MD Admitting Physician Admitting Physician: Марина Lentz MD Attending Physician: Марина Lentz MD Chief Complaint Severe pneumonia and leukocytosis, WBC 32 Interval History Called to evaluate Ms. Kay for markedly elevated WBC 32. Ms. Kay is a 77 year old of white female, recently admitted to [facility] for pneumonia and discharged from there but returned here for increasing SOB and sepsis. She is at ICU with presser support and triple antibiotics. WBC was 8.5, Hb 6.3, Plt 203 on 03/16/2023 and now WBC 32k, Hb 8.3 (post transfusion) and Plt 208 today. Pt is non-responsive on 15L of high flow mask O2. I consulted the patient on: 03/19/23 10:05 Time Seen by Provider: 10:11 Review of Systems Constitutional: see HPI Health Status Allergies Coded Allergies: codeine (Verified Allergy, Unknown, 03/23/08) gatifloxacin (Verified Allergy, Unknown, 03/23/08) nitrofurantoin (Verified Allergy, Unknown, 03/23/08) Home Medications Acetaminophen (Tylenol Extra Strength) 500 Mg Tablet, 500 MG PO Q6H PRN for PAIN-MILD (1-4), (Reported) Albuterol Sulfate (Ventolin Hfa) 1 Puff Puff, 2 PUFF INH Q6H PRN for SHORTNESS OF BREATH, (Reported) Apixaban (Eliquis) 5 Mg Tablet, 5 MG PO BID, (Reported) Aspirin (Aspirin) 325 Mg Tablet, 325 MG PO DAILY, (Reported) Ciprofloxacin HCl/Dexameth (Ciproflox-Dexameth Otic Susp) 0.3 %-0.1 % Drops.susp, 4 DROPS OT BID for 7 Days, (Reported) Cyanocobalamin/Folic Acid (Vitamin V64-Vundv Acid Tablet) 500 Mcg-400 Mcg Tablet, 1 EACH PO DAILY, (Reported) Fluconazole (Fluconazole) 200 Mg Tablet, 200 MG PO DAILY for 10 Days, (Reported) Hydrocodone/Acetaminophen (Hydrocodone-Acetamin 10-325 mg) 10 Mg-325 Mg Tablet, 1 EACH PO Q8H PRN for PAIN-MODERATE (5-7), (Reported) Hydroxyzine HCl (Hydroxyzine HCl) 10 Mg Tablet, 10 MG PO Q8H PRN for ANXIETY, (Reported) Levalbuterol HCl (Levalbuterol HCl) 1.25 Mg/3 Ml Vial.neb, 1.25 MG IH Q6H PRN for SHORTNESS OF BREATH, (Reported) Linezolid (Linezolid) 600 Mg Tablet, 600 MG PO BID for 7 Days, (Reported) Lisinopril (Lisinopril) 10 Mg Tablet, 10 MG PO DAILY, (Reported) Loratadine (Loratadine Allergy) 5 Mg/5 Ml Solution, 5 MG PO DAILY, (Reported) Lorazepam (Ativan) 0.5 Mg Tablet, 0.5 MG PO Q6H PRN for ANXIETY, (Reported) Metoprolol Succinate (Metoprolol Succinate) 50 Mg Tab.er.24h, 50 MG PO DAILY, (Reported) Naloxone HCl (Naloxone HCl) 4 Mg/Actuation [place], 4 MG NS UD PRN for OVERDOSE, (Reported) MAY REPEAT IN ALTERNATING NOSTRILS EVERY 2-3 MINUTES UNTIL RESPONSIVE OR EMS ARRIVES Pantoprazole Sodium (Pantoprazole Sodium) 40 Mg Tablet.dr, 40 MG PO DAILY, (Reported) Potassium Chloride (Potassium Chloride) 20 Meq Packet, 20 MEQ PO DAILY, (Report ed) PXD-Dvilpc-Penocw Hx Patient Social History Former smoker/When Quit: Jul 04, 1983 2nd Hand Smoke Exposure: Yes Recent Hopitalizations: No Alcohol Use?: No Immunizations Up To Date Tetanus Booster (TDap): Unknown Family Medical History Significant Family History: Heart Disease, Diabetes, 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 Family History: Dementia 19 MOTHER, , Age:88, Onset:60 years & older FH: CAD (coronary artery disease) 19 FATHER, , Age:64, Onset:60 years & older FH: CHF (congestive heart failure) 19 MOTHER, , Age:88, Onset:60 years & older Myocardial infarction 19 MOTHER, , Age:88, Onset:50's - 60 No Family History of: AIDS Abdominal aortic aneurysm Elk's disease Alcoholism Alzheimer's disease Aphasia Arthritis Asthma Cancer of mouth Cardiovascular disease Cataracts Colon cancer Completed stroke Congenital disease Congenital heart disease Coronary thrombosis Cystic fibrosis Deafness or hearing loss Diabetes mellitus Drug abuse Dysphasia Fibrocystic disease of breast Gastroenteritis Glaucoma Headache disorder Hypercholesterolemia 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 Infertility Kidney disease Neoplasm Not obtainable due to adoption Osteoporosis Parkinson's disease Prostate cancer Psychosocial problem Respiratory disorder Seizure disorder Severe allergy Thyroid disease Tuberculosis Visual disorder Physical Exam Vital Signs Vital Signs - First Documented 03/14/23 03/14/23 03/14/23 03/14/23 17:05 19:30 20:11 21:50 Temp 36.3 Pulse 101 Resp 32 B/P (MAP) 104/61 (75) Pulse Ox 100 O2 Delivery Nasal Cannula O2 Flow Rate 1.50 FiO2 21 Capillary Refill : Less Than 3 Seconds Height, Weight, BMI Height: 5'3.00" Weight: 140lbs. 0.0oz. 63.583967wq; 29.89 BMI Method:Stated General Appearance: Other (Unresponsive, appeared actively dying to me. ) Data Review Labs Laboratory Tests 03/19/23 04:47 Laboratory Tests 03/16/23 15:20: White Blood Count 11.3H, Red Blood Count 2.91L, Hemoglobin 8.7#L, Hematocrit 27L , Red Cell Distribution Width 20.7H, Lymphocytes (%) (Auto) 10L, Neutrophils # (Auto) 8.4H, Immature Granulocyte # (Auto) 0.8H 03/17/23 04:05: White Blood Count 11.7H, Red Blood Count 2.75L, Hemoglobin 8.2L, Hematocrit 26L, Red Cell Distribution Width 22.1H, Lymphocytes (%) (Auto) 11L, Neutrophils # (Auto) 8.6H, Immature Granulocyte # (Auto) 0.7H, Prothrombin Time 43.8H, INR Comment 4.8H, Chloride Level 113H, Creatinine 0.58L, Calcium Level 7.8L, Total Bilirubin 3.9H, Aspartate Amino Transf (AST/SGOT) 44H, Alkaline Phosphatase 205H , Total Protein 4.3L, Albumin 3.0L 03/17/23 09:45: Ammonia 33H 03/18/23 04:05: White Blood Count 24.4H, Red Blood Count 2.89L, Hemoglobin 8.7L, Hematocrit 28L, Red Cell Distribution Width 22.9H, Neutrophils # (Auto) 17.8H, Immature Granulo cyte # (Auto) 1.7H, Prothrombin Time 43.8H, INR Comment 4.8H, Chloride Level 112H, Calcium Level 7.8L, Total Bilirubin 3.1H, Alkaline Phosphatase 146H, Total Protein 4.6L, Mean Corpuscular Hemoglobin Concent 31L, Monocytes # (Auto) 1.5H, Eosinophils # (Auto) 0.4H, Basophils # (Auto) 0.2H, Glucose Level 180H, Corrected Calcium 8.2L 03/18/23 23:25: Glucometer 167H 03/19/23 04:47: White Blood Count 32.1*H, Red Blood Count 2.78L, Hemoglobin 8.3L, Hematocrit 28L , Mean Corpuscular Volume 101H, Mean Corpuscular Hemoglobin Concent 30L, Red Cell Distribution Width 22.3H, Neutrophils (%) (Auto) 81H, Lymphocytes (%) (Auto) 6L, Neutrophils # (Auto) 26.0H, Monocytes # (Auto) 1.2H, Basophils # (Auto) 0.2H, Immature Granulocyte # (Auto) 2.8H, Prothrombin Time 44.4H, INR Comment 4.9H, Chloride Level 112H, Carbon Dioxide Level 17L, Glucose Level 169H, Calcium Level 7.4L, Corrected Calcium 7.6L, Total Bilirubin 2.9H, Total Protein 4.8L Impression & Plan Impression & Plan IMP: 1: Acute leukocytosis, normal Plt. Most likely leukemoid reaction to infection. Normal Plt, no circulating blasts. She does have immature granular cells due to severe infection. 2. Pt is actively dying of pneumonia. 3. Pt is DNI and DNR. 4. Family is awaiting for the rest of family arrive to discuss possible comfort care. PETAR AN MD Mar 19, 2023 10:10
[2023-03-19] MEDS: SENNOSIDES 8.6 MG (SENOKOT) TAB PO SCH ×2 (10:54→20:27)
[2023-03-19] MEDS: NS IV 500 ML 500 ML IV SCH (10:54)
--- NOTE | 2023-03-19 12:59 | Occ Therapy Progress Note ---
Therapy Progress Note Patient is not appropriate for Occupational Therapy at this time, please discontinue OT order. RITA VIEIRA OT Mar 19, 2023 12:59
[2023-03-19] MEDS: FLUCONAZOLE 100 MG/50 ML 50 ML IV SCH (13:21)
[2023-03-19 13:56] VITALS: BP 105/57
--- NOTE | 2023-03-19 13:57 | Progress Note - Hospitalist ---
Subjective HPI/CC On Admission Date Seen by Provider: Mar 19, 2023 Cathleen Kay is a 77 year old female with PMH HTN, asthma, SVT, COPD, chronic respiratory failure with hypoxia, DVT/PE, who presented with altered mental status. She has been confused and weak for quite a while according to family. She is able to wake up and answer questions appropriately for me. She is hard of hearing. She denies pain. She has had recurrent illnesses and hospitalizations since December. At that time, she was hospitalized at [facility] with respiratory failure. An extensive workup was unrevealing for the cause of her respiratory failure so she was transferred to [facility] in [place]. She was eventually found to have Pseudomonas pneumonia and cavitary abscess. She was treated with Cefepime. Upon discharge, she came to the inpatient rehab unit at [facility]. She was unable to tolerate the therapy and was discharged to [facility]. Hospice was recommended at that time. Her daughter did not think she was getting the therapy she needed so she discharged her and took her home. According to family, she continued to worsen at home. She was taken to the ER on 03/01 and she was treated for dehydration. A UA at that time ended up growing VRE. There was a hospice evaluation scheduled for the following Friday according to the ER note. She returned to the ER on 03/03 and was found to have a DVT/PE. She was transferred to [facility] on 03/04 for thrombectomy. She had continued confusion and weakness according to family. A UA was evantually checked and she was found to have VRE. She was given one dose of IV Linezolid prior to discharge. She was discharged to [facility] on oral Linezolid. She was quickly sent to the ER due to poor condition and the family was reportedly told that she may be needing end of life care. She was brought to the [facility] ER and admitted with sepsis due to UTI. Subjective/Events-last exam Pt remains minimally responsive. On initial visit no family at beside. RN reports change in respirations this morning and family en route. Returned to room to talk with and two daughters. Expressed my concerns regarding her worsening condition. Discussed lab results and increased need for medications to support her BP. They indicated that another family member is en en route and they plan to all talk about goals of care. Returned to room in the afternoon and cardiology had just visited with them. Plan is to trial BiPAP and Lasix gtt. Focused Exam Time of Focused Exam: 19:25 Objective Exam Vital Signs Vital Signs Date Time Temp Pulse Resp B/P (MAP) Pulse Ox O2 Delivery O2 Flow Rate FiO2 03/19/23 20:22 93 123/95 03/19/23 20:00 99 NIV Bilevel 70 03/19/23 19:58 36.1 03/19/23 18:39 20 70.00 Capillary Refill : Less Than 3 Seconds General Appearance: Chronically ill, Other (ill appearing, does not respond) Respiratory: Decreased Breath Sounds Cardiovascular: Irregularly Irregular Genital/Rectal: Other Neurologic/Psychiatric: Other Results/Procedures Lab Laboratory Tests 03/19/23 04:47 03/19/23 19:31 Patient resulted labs reviewed. Imaging: Reviewed Imaging Report Assessment/Plan Assessment and Plan Assess & Plan/Chief Complaint Severe sepsis due to UTI VRE infection Septic encephalopathy Recent Pseudomonas pneumonia and lung abscess Hypoxic respiratory failure Recent urine culture with VRE, repeat cultures with Enterococcus faecium repeated urine culture yesterday to see if clearing infection- spoke with microbiology and still pending but appears to be growing enterococcus again Continue Linezolid and Zosyn and diflucan TeleICU following Leukocytosis up even more today- Hematology consulted, appreciate assistance On levophed- wean as able Trialing BiPAP this afternoon A fib Now on amiodarone gtt Became hypotensive and eICU ordered levophed Cardiology consulted, appreciate recs INR remains supratherapeutic Hyperbilirubinemia Supratherapeutic INR No history of liver disease ammonia level 33 liver usg suggestive of acute cholecystitis- Dr An spoke with family and reportedly not a surgical candidate Continue IV abx Debility Recurrent hospitalizations Severe protein calorie malnutrition Hypoalbuminemia Poor prognosis Goals of care discussion Palliative care consulted PT/OT Albumin Ensure as able Remeron/Trazodone if able to take PO Could not tolerate NGT, PEG on hold per surgery note DVT/PE Supratherapeutic INR Lovenox held COPD/Asthma Chronic respiratory failure with hypoxia HTN Hold antihypertensives MAT protocol Critical Care Critically Ill Patient ARSLAN COHEN MD Mar 19, 2023 13:57
[2023-03-19] MEDS: FUROSEMIDE INJECTION 120 MG in D5W 100 ML IVPB 108 ML IV SCH (14:21)
--- NOTE | 2023-03-19 14:24 | Diagnostic Imaging Report ---
INDICATION: Increasing shortness of breath. TECHNIQUE: Frontal chest obtained at 01:57 p.m. and compared to 03/14/2023. FINDINGS: There is cardiomegaly. There is extensive worsening compared to the prior study with development of extensive bilateral alveolar infiltrates throughout both lungs. There are new or worsening bilateral pleural effusions as well. IMPRESSION: Significant worsening compared to the prior study with development of extensive bilateral alveolar infiltrates and increasing bilateral pleural effusions. Dictated by: Dictated on workstation # [id number]
[2023-03-19 15:12] LABS: ABG OXYGEN SATURATION 97 % (94-100); ABG PO2 118 MMHG (79-93); ABG TCO2 25.5 MMOL/L (21.0-31.0)
[2023-03-19 15:14] LABS: ALLENS TEST YES-POS; INSPIRED O2 100%; VENTILATOR YES
[2023-03-19 15:16] LABS: ABG PH 6.85 (7.37-7.43)
[2023-03-19 15:17] LABS: ABG PCO2 130 MMHG (35-45)
--- NOTE | 2023-03-19 15:32 | Progress Note ---
Subjective Date Seen by a Provider: Mar 19, 2023 Time Seen by a Provider: 15:00 Subjective/Events-last exam respiratory status considerably worsened past 24hrs. on 100% bipap at this time. also requiring increased vasopressors. overall prognosis seems very poor. Focused Exam Time of Focused Exam: 19:25 Objective Exam Vital Signs Date Time Temp Pulse Resp B/P (MAP) Pulse Ox O2 Delivery O2 Flow Rate FiO2 03/19/23 15:00 86 111/58 (75) 99 NIV Bilevel 100.00 03/19/23 14:00 85 111/59 (76) 94 NIV Bilevel 100.00 03/19/23 13:56 NIV Bilevel 100.00 03/19/23 13:56 86 16 90 100.00 03/19/23 13:01 86 03/19/23 13:00 85 105/60 (75) 78 OxyMask 15.00 03/19/23 12:46 84 95/53 03/19/23 12:15 93 OxyMask 15.00 03/19/23 12:00 86 105/58 (74) 80 OxyMask 15.00 03/19/23 11:50 35.4 OxyMask 15.00 03/19/23 11:00 86 111/59 (76) 82 OxyMask 15.00 03/19/23 10:00 84 117/60 (79) 81 OxyMask 15.00 03/19/23 09:38 77 OxyMask 15.00 03/19/23 09:38 OxyMask 15.00 03/19/23 09:16 78 OxyMask 10.00 03/19/23 09:00 83 117/61 (79) 83 OxyMask 6.00 03/19/23 08:00 84 103/56 (72) 89 OxyMask 6.00 03/19/23 07:38 83 03/19/23 07:35 88 Nasal Cannula 15.00 03/19/23 07:30 35.8 OxyMask 6.00 03/19/23 07:03 93 OxyMask 6.00 03/19/23 07:00 83 87/48 (61) 92 OxyMask 6.00 03/19/23 06:15 86 93/53 (66) 92 OxyMask 6.00 03/19/23 05:00 88 95/54 (68) 93 OxyMask 6.00 03/19/23 04:00 88 96/53 (67) 93 OxyMask 6.00 03/19/23 04:00 93 OxyMask 6.00 03/19/23 03:50 36.2 03/19/23 03:00 88 97/54 (68) 92 OxyMask 6.00 03/19/23 02:15 89 110/59 (76) 92 OxyMask 6.00 03/19/23 01:30 87 99/56 03/19/23 01:00 91 103/54 (70) 88 OxyMask 6.00 03/19/23 01:00 91 03/19/23 00:00 35.8 03/19/23 00:00 92 104/56 (72) 89 OxyMask 6.00 03/18/23 23:54 OxyMask 6.00 03/18/23 23:44 93 OxyMask 5.00 03/18/23 23:15 92 101/54 (70) 92 OxyMask 5.00 03/18/23 23:04 OxyMask 5.00 03/18/23 22:30 OxyMask 3.00 03/18/23 22:17 91 95/50 (65) 89 OxyMask 2.00 03/18/23 22:00 OxyMask 2.00 03/18/23 21:00 93 104/57 (73) 91 OxyMask 3.00 03/18/23 20:59 87 99/56 03/18/23 20:00 93 OxyMask 3.00 03/18/23 20:00 92 114/57 (76) 90 OxyMask 3.00 03/18/23 19:43 35.7 03/18/23 19:31 93 OxyMask 2.00 03/18/23 19:30 88 117/63 (81) 94 OxyMask 3.00 03/18/23 19:00 88 03/18/23 19:00 88 86/50 (62) 92 OxyMask 3.00 03/18/23 18:00 87 99/56 (70) 95 OxyMask 3.00 03/18/23 17:00 88 94/53 (67) 94 OxyMask 3.00 03/18/23 16:00 91 OxyMask 5.00 03/18/23 16:00 90 105/62 (76) 92 OxyMask 3.00 03/18/23 15:49 35.8 03/18/23 15:39 OxyMask 2.00 03/18/23 15:35 97 OxyMask 5.00 03/18/23 15:30 OxyMask 3.00 I & O 03/19/23 07:00 Intake Total 3350 ml Output Total 320 ml Balance 3030 ml Capillary Refill : Less Than 3 Seconds General Appearance: No Apparent Distress HEENT: PERRL/EOMI Neck: Full Range of Motion Respiratory: Decreased Breath Sounds, Rhonci, Wheezing Cardiovascular: Regular Rate, Rhythm Gastrointestinal: normal bowel sounds, soft Extremity: Normal Capillary Refill Neurologic/Psychiatric: Disoriented Skin: Normal Color Lymphatic: No Adenopathy Results Lab Laboratory Tests 03/18/23 23:25: Glucometer 167H 03/19/23 04:47: White Blood Count 32.1*H, Red Blood Count 2.78L, Hemoglobin 8.3L, Hematocrit 28L , Mean Corpuscular Volume 101H, Mean Corpuscular Hemoglobin 30, Mean Corpuscular Hemoglobin Concent 30L, Red Cell Distribution Width 22.3H, Platelet Count 208, Mean Platelet Volume 10.2, Immature Granulocyte % (Auto) 9, Neutrophils (%) (Auto) 81H, Lymphocytes (%) (Auto) 6L, Monocytes (%) (Auto) 4, Eosinophils (%) (Auto) 0, Basophils (%) (Auto) 1, Neutrophils # (Auto) 26.0H, Lymphocytes # (Auto) 1.9, Monocytes # (Auto) 1.2H, Eosinophils # (Auto) 0.0, Basophils # (Auto) 0.2H, Immature Granulocyte # (Auto) 2.8H, Neutrophils % (Manual) 89, Lymphocytes % (Manual) 8, Monocytes % (Manual) 2, Eosinophils % (Manual) 1, Nucleated Red Blood Cells 2, Platelet Estimate ADEQUATE, Polychromasia SLIGHT, Hypochromasia MODERATE, Basophilic Stippling SLIGHT, Anisocytosis MODERATE, Macrocytosis SLIGHT, Prothrombin Time 44.4H, INR Comment 4.9H, Sodium Level 138, Potassium Level 4.2, Chloride Level 112H, Carbon Dioxide Level 17L, Anion Gap 9, Blood Urea Nitrogen 7, Creatinine 0.83, Estimat Glomerular Filtration Rate 73, BUN/Creatinine Ratio 8, Glucose Level 169H, Calcium Level 7.4L, Corrected Calcium 7.6L, Magnesium Level 1.7, Total Bilirubin 2.9H, Aspartate Amino Transf (AST/SGOT) 25, Alanine Aminotransferase (ALT/SGPT) 19, Alkaline Phosphatase 91, Total Protein 4.8L, Albumin 3.7 03/19/23 15:00: Blood Gas Puncture Site RIGHT RADIAL, Blood Gas Patient Temperature 37.0, Arterial Blood pH 6.85*L, Arterial Blood Partial Pressure CO2 130*H, Arterial Blood Partial Pressure O2 118H, Arterial Blood HCO3 22L, Arterial Blood Total CO2 25.5, Arterial Blood Oxygen Saturation 97, Arterial Blood Base Excess -11.0L , Elvis Test YES-POS, Blood Gas Ventilator Setting YES, Blood Gas Inspired Oxygen 100% Microbiology 03/18/23 Urine Culture - Preliminary, Resulted Probable Enterococcus Species YEAST 03/14/23 MRSA Screen - Final, Complete MRSA not isolated 03/14/23 Blood Culture - Preliminary, Resulted No growth Assessment/Plan Assessment/Plan Assess & Plan/Chief Complaint UTI, pneumonia, anemia and multisystem organ failure. anemia of unknown etiology. tx PRBC. will continue to monitor and endoscopy if indicated and family amenable. family also mentioned PEG tube. has acute on chronic calculous cholecystitis. at this time patient is very poor surgical candidate and with hx of COPD and current pneumonia patient may need prolonged ventilation which family states she wouldn't want when she was lucid. who is next of kin stated he would like to proceed with groshong port and PEG for alimentation. will schedule when INR closer to tolerable range. will hold off on any procedures at this time due to elevated INR(liver failure), resp failure and multisystem organ failure. ERROL ROSADO MD Mar 19, 2023 15:32
[2023-03-19 15:34] VITALS: BP 115/59
--- NOTE | 2023-03-19 15:35 | Cardiology Progress Note ---
Subjective Time Seen by Provider: 14:00 Subjective/Events-last exam Patient doing poorly. She is oliguric to anuric. In addition, developing volume overload and hypoxia. Oxygen requirements have increased and she is on 15 L Ventimask saturating 75%. Poorly responsive. She has been receiving normal saline at 75 cc an hour which is being discontinued due to combination of volume overload, hypoxia and falling urine output. She is normotensive on low- dose norepinephrine drip. Continues to be on amiodarone drip, maintaining in sinus rhythm. Cardiology consultation was initially requested for atrial fibrillation and hypotension. 77 year old female with PMH HTN, asthma, SVT, COPD, chronic respiratory failure with hypoxia, DVT/PE, who presented to the emergency room with altered mental status. She had been confused and weak for quite a while according to family. She was found to have a urinary tract infection and is being treated for the same. On 03/17/2023, she was noted to be in atrial fibrillation with rapid ventricular rate. She was started on an amiodarone drip. This resulted in hypotension necessitating the use of low-dose norepinephrine drip. On this regimen, she is tolerating IV amiodarone gtt and has reverted to normal sinus rhythm. Multiple medical problems and hospitalizations since December 2022. In December 2022, she was hospitalized at [facility] with respiratory failure. An extensive workup was unrevealing for the cause of her respiratory failure so she was transferred to [facility] in [place]. She was eventually found to have Pseudomonas pneumonia and cavitary abscess. She was treated with Cefepime. Upon discharge, she came to the inpatient rehab unit at [facility]. She was unable to to lerate the therapy and was discharged to [facility]. Hospice was recommended at that time. Her daughter did not think she was getting the therapy she needed so she discharged her and took her home. According to family, she continued to worsen at home. She was taken to the ER on 03/01 and she was treated for dehydration. A UA at that time ended up growing VRE. There was a hospice evaluation scheduled for the following Friday according to the ER note. She returned to the ER on 03/03 and was found to have a DVT/PE. She was transferred to [facility] on 03/04 for thrombectomy. She had continued confusion and weakness according to family. A UA was evantually checked and she was found to have VRE. She was given one dose of IV Linezolid prior to discharge. She was discharged to [facility] on oral Linezolid. She was quickly sent to the ER due to poor condition and the family was reportedly told that she may be needing end of life care. She was brought to the [facility] ER and admitted with sepsis due to UTI. Family however, does not want hospice at present Review of Systems As mentioned in history of present illness Exam Vital Signs Vital Signs Date Time Temp Pulse Resp B/P (MAP) Pulse Ox O2 Delivery O2 Flow Rate FiO2 03/19/23 15:00 86 111/58 (75) 99 NIV Bilevel 100.00 03/19/23 13:56 16 03/19/23 11:50 35.4 03/14/23 21:00 28 Physical Exam Patient obtunded. On 15 L/min Ventimask S1 and S2 are regular. No murmur. Bilateral upper and lower extremity edema evident Bilateral crackles consistent with volume overload Neurological examination nonfocal Telemetry shows sinus rhythm Labs Laboratory Tests Test 03/18/23 23:25 03/19/23 04:47 03/19/23 15:00 Range/Units Glucometer 167 H 70-110 MG/DL White Blood Count 32.1 *H 4.3-11.0 10^3/uL Red Blood Count 2.78 L 3.80-5.11 10^6/uL Hemoglobin 8.3 L 11.5-16.0 g/dL Hematocrit 28 L 35-52 % Mean Corpuscular Volume 101 H 80-99 fL Mean Corpuscular Hemoglobin 30 25-34 pg Mean Corpuscular Hemoglobin Concent 30 L 32-36 g/dL Red Cell Distribution Width 22.3 H 10.0-14.5 % Platelet Count 208 130-400 10^3/uL Mean Platelet Volume 10.2 9.0-12.2 fL Immature Granulocyte % (Auto) 9 % Neutrophils (%) (Auto) 81 H 42-75 % Lymphocytes (%) (Auto) 6 L 12-44 % Monocytes (%) (Auto) 4 0-12 % Eosinophils (%) (Auto) 0 0-10 % Basophils (%) (Auto) 1 0-10 % Neutrophils # (Auto) 26.0 H 1.8-7.8 10^3/uL Lymphocytes # (Auto) 1.9 1.0-4.0 10^3/uL Monocytes # (Auto) 1.2 H 0.0-1.0 10^3/uL Eosinophils # (Auto) 0.0 0.0-0.3 10^3/uL Basophils # (Auto) 0.2 H 0.0-0.1 10^3/uL Immature Granulocyte # (Auto) 2.8 H 0.0-0.1 10^3/uL Neutrophils % (Manual) 89 % Lymphocytes % (Manual) 8 % Monocytes % (Manual) 2 % Eosinophils % (Manual) 1 % Nucleated Red Blood Cells 2 Platelet Estimate ADEQUATE Polychromasia SLIGHT Hypochromasia MODERATE Basophilic Stippling SLIGHT Anisocytosis MODERATE Macrocytosis SLIGHT Prothrombin Time 44.4 H 12.2-14.7 SEC INR Comment 4.9 H 0.8-1.4 Sodium Level 138 135-145 MMOL/L Potassium Level 4.2 3.6-5.0 MMOL/L Chloride Level 112 H 98-107 MMOL/L Carbon Dioxide Level 17 L 21-32 MMOL/L Anion Gap 9 5-14 MMOL/L Blood Urea Nitrogen 7 7-18 MG/DL Creatinine 0.83 0.60-1.30 MG/DL Estimat Glomerular Filtration Rate 73 BUN/Creatinine Ratio 8 Glucose Level 169 H 70-105 MG/DL Calcium Level 7.4 L 8.5-10.1 MG/DL Corrected Calcium 7.6 L 8.5-10.1 MG/DL Magnesium Level 1.7 1.6-2.4 MG/DL Total Bilirubin 2.9 H 0.1-1.0 MG/DL Aspartate Amino Transf (AST/SGOT) 25 5-34 U/L Alanine Aminotransferase (ALT/SGPT) 19 0-55 U/L Alkaline Phosphatase 91 40-136 U/L Total Protein 4.8 L 6.4-8.2 GM/DL Albumin 3.7 3.2-4.5 GM/DL Blood Gas Puncture Site RIGHT RADIAL Blood Gas Patient Temperature 37.0 Arterial Blood pH 6.85 *L 7.37-7.43 Arterial Blood Partial Pressure CO2 130 *H 35-45 MMHG Arterial Blood Partial Pressure O2 118 H 79-93 MMHG Arterial Blood HCO3 22 L 23-27 MMOL/L Arterial Blood Total CO2 25.5 21.0-31.0 MMOL/L Arterial Blood Oxygen Saturation 97 94-100 % Arterial Blood Base Excess -11.0 L -2.5-2.5 MMOL/L Elvis Test YES-POS Blood Gas Ventilator Setting YES Blood Gas Inspired Oxygen 100% A/P-Cardiology Admission Diagnosis 1. Hypoxia, with increasing oxygen demands and evidence of developing pulmonary edema. Oxygen saturation 75% on high flow facemask. Detailed conversation with family at the bedside, including and daughters. They continue to express a desire not to intubate her. Comfort care has been discussed but they want to hold off on this also. In view of no definitive decision regarding full treatment versus comfort care, we will for now proceed with an attempt at bilevel positive airway pressure ventilation to improve respiratory failure/hypoxia. Discontinue normal saline infusion. IV amiodarone and pressors to continue as needed. Start IV furosemide 10 mg an hour. Patient's family does not want an NG tube. 2. Recent DVTs. Continue apixaban. 3. Urinary tract infection/sepsis/altered mental status. As per primary service 4. Recent failure to thrive/recent pulmonary infections. 5. History of supraventricular tachycardia. Continue telemetry monitoring 6. Atrial fibrillation with rapid ventricular rate. Patient has reverted to sinus rhythm. Continue IV amiodarone with low-dose IV norepinephrine as needed. Continue anticoagulation with oral apixaban Overall prognosis is grim RACHID MILLAN MD Mar 19, 2023 15:35
[2023-03-19 16:40] LABS: ABG BASE EXCESS -10.4 MMOL/L (-2.5-2.5); ABG OXYGEN SATURATION 101 % (94-100); ABG PO2 139 MMHG (79-93); ALLENS TEST YES-POS
[2023-03-19 16:41] LABS: INSPIRED O2 100%; VENTILATOR YES
[2023-03-19 16:49] LABS: ABG PH 6.93 (7.37-7.43)
[2023-03-19 16:50] LABS: ABG PCO2 105 MMHG (35-45)
[2023-03-19 17:08] VITALS: BP 109/58
--- NOTE | 2023-03-19 17:10 | Tele-ICU Progress Note ---
Progress Note Patient with severe resp acidosis and hypoxia also anuric abg done after 1 h bipap 10/ - changed to rr20 18/10 - initially MV was 17 l on this settings repeated abg with improvemnent of Co2 , but MV is only 8 L now with TV 350 ml lasix gtt initiated also - no UO yet - will check BMP 19.00 LEVO dose the same changes to AVAPS IPAPmin 12, IPAP max 25 EPAP 10 cm RR20 will follow abg in 1 h Focused Exam Height, Weight, BMI Height: 5'3.00" Weight: 140lbs. 0.0oz. 63.565541lo; 29.89 BMI Method:Stated Time of Focused Exam: 19:25 LETICIA KAPADIA MD Mar 19, 2023 17:10
[2023-03-19 18:39] VITALS: BP 123/95
[2023-03-19 18:45] LABS: ABG BASE EXCESS -11.1 MMOL/L (-2.5-2.5); ABG OXYGEN SATURATION 92 % (94-100); ABG PO2 57 MMHG (79-93); ABG TCO2 21.4 MMOL/L (21.0-31.0)
[2023-03-19 18:50] LABS: ALLENS TEST YES-POS; PATIENT TEMP 35.8
[2023-03-19 18:52] LABS: INSPIRED O2 70%; VENTILATOR NO
[2023-03-19 18:53] LABS: ABG PCO2 78 MMHG (35-45)
[2023-03-19 19:43] LABS: POTASSIUM 4.1 MMOL/L (3.6-5.0)
[2023-03-19 19:44] LABS: CALCIUM 7.5 MG/DL (8.5-10.1)
[2023-03-19 19:48] LABS: CREATININE SERUM 1.09 MG/DL (0.60-1.30)
[2023-03-19] MEDS: traZODone 50 MG (DESYREL) TAB PO SCH (20:27)
[2023-03-19] MEDS: MIRTAZAPINE 15 MG (REMERON) TAB PO SCH (20:27)
[2023-03-19] MEDS ORDERED: HEParin 1000 UNIT/ML (10ML VIAL) FOR BOLUS IV SCH (21:45)
[2023-03-19] MEDS ORDERED: AMIODARONE INJECTION 450 MG in Ns(excel) 250 ML IV SCH (21:45)
[2023-03-19] MEDS: KETOROLAC 15 MG/ML VIAL IVP PRN (22:17)
[2023-03-19] MEDS: LINEZOLID 600MG/300ML IVPB (PRE-MIX) IV SCH (22:17)
[2023-03-19] MEDS: DOPamine DRIP 400 MG/250 ML D5W (PRE-MIX) IV SCH (22:38)
[2023-03-19 22:46] LABS: HEMOGLOBIN 7.9 g/dL (11.5-16.0); MEAN PLATELET VOLUME 10.2 fL (9.0-12.2)
[2023-03-20] MEDS: FUROSEMIDE INJECTION 120 MG in D5W 100 ML IVPB 108 ML IV SCH (01:18)
[2023-03-20] MEDS: NS IV 500 ML 500 ML IV SCH (02:15)
[2023-03-20 02:58] VITALS: BP 118/56
[2023-03-20 04:32] LABS: BASOPHILS % (AUTO) 0 % (0-10); MEAN CORPUSCULAR VOLUME 97 fL (80-99); MEAN PLATELET VOLUME 10.7 fL (9.0-12.2)
[2023-03-20 04:33] LABS: ABG BASE EXCESS -11.5 MMOL/L (-2.5-2.5); ABG OXYGEN SATURATION 92 % (94-100); ABG PCO2 60 MMHG (35-45); ABG PO2 57 MMHG (79-93); ABG TCO2 18.9 MMOL/L (21.0-31.0)
[2023-03-20 04:34] LABS: BASOPHILS # (AUTO) 0.1 10^3/uL (0.0-0.1); EOSINOPHILS # (AUTO) 0.1 10^3/uL (0.0-0.3); EOSINOPHILS % (AUTO) 0 % (0-10); HEMATOCRIT 22 % (35-52); LYMPHOCYTES # (AUTO) 1.8 10^3/uL (1.0-4.0); LYMPHOCYTES % (AUTO) 5 % (12-44); MEAN CORPUSCULAR HEMOGLOBIN 31 pg (25-34); MEAN CORPUSCULAR HGB CONC 32 g/dL (32-36); MONOCYTES # (AUTO) 1.6 10^3/uL (0.0-1.0); MONOCYTES % (AUTO) 4 % (0-12); NEUTROPHILS # (AUTO) 31.2 10^3/uL (1.8-7.8); NEUTROPHILS % (AUTO) 80 % (42-75); PLATELET COUNT 109 10^3/uL (130-400)
[2023-03-20 04:37] LABS: ALLENS TEST YES-POS; INSPIRED O2 70%; VENTILATOR NO
[2023-03-20 04:38] LABS: PATIENT TEMP 36.6
[2023-03-20 04:39] LABS: ABG PH 7.08 (7.37-7.43)
[2023-03-20 04:40] LABS: WHITE BLOOD COUNT 38.8 10^3/uL (4.3-11.0)
[2023-03-20 04:47] LABS: ALBUMIN 3.7 GM/DL (3.2-4.5)
[2023-03-20 04:48] LABS: CALCIUM 7.4 MG/DL (8.5-10.1)
[2023-03-20 04:49] LABS: TOTAL PROTEIN 4.5 GM/DL (6.4-8.2)
[2023-03-20 04:51] LABS: BILIRUBIN,TOTAL 3.4 MG/DL (0.1-1.0)
[2023-03-20 04:53] LABS: CREATININE SERUM 1.23 MG/DL (0.60-1.30)
[2023-03-20] MEDS: KCL 20 MEQ TAB (K-DUR) PO SCH (05:10)
[2023-03-20] MEDS: POTASSIUM CL 10MEQ/50ML IVPB 50 ML IV SCH (05:10)
[2023-03-20] MEDS ORDERED: SODIUM BICARB 8.4% 50 MEQ/50 ML (ABBOTT) SYR IV ONE (05:15)
[2023-03-20 05:19] LABS: INR 6.4 (0.8-1.4)
[2023-03-20 05:21] LABS: PROTHROMBIN TIME PATIENT 54.6 SEC (12.2-14.7)
[2023-03-20] MEDS: MAGNESIUM 1 GM/100 ML IVPB 100 ML IV SCH (05:36)
[2023-03-20] MEDS ORDERED: PHYTONADIONE (ADULT) INJECTION 5 MG in NS (IVPB) 50 ML IV ONE (06:30)
[2023-03-20 06:59] VITALS: BP 126/61
[2023-03-20] MEDS: RT-ALBUTEROL/IPRATROPIUM 3 ML (DUONEB) VIAL INH SCH ×2 (06:59→10:41)
[2023-03-20] MEDS ORDERED: HEParin DRIP 25000 UNIT/500ML 500 ML IV SCH (08:00)
[2023-03-20] MEDS: DOPamine DRIP 400 MG/250 ML D5W (PRE-MIX) IV SCH (08:12)
--- NOTE | 2023-03-20 08:48 | Tele-ICU Progress Note ---
Subjective Date Seen by a Provider: Mar 20, 2023 Time Seen by a Provider: 08:43 Subjective/Events-last exam (Tele-ICU Physician , Progress Note ) Service provided via interactive audio and video telecommunications E-CARE system to a patient admitted to ICU bed in [facility]. Patient is seen today due to persistent need of ICU care Available chart/ vitals / labs / Images reviewed Video assessment done using teleICU camera, rest of exam as per RNNow on AVAPS, IPAP 12, IPAP max 25, EPAP 10, ABG 7./57 Remains on IV Linzeolid for VRE in urine and IV fluconazole for yeast in urine was on IV amiodarone for a fib, now off V rate about 104, BP about 100/60 now on dopamine @ 10, IV Laxis drip, also getting albumin Still working had ro breathe, to be electively intubated and be transferred to high level level of care CXR from yesterday looks worse, pt is unresponsive, DNR will be revoked for intubation minimal urine output today Sepsis Event Evaluation Height, Weight, BMI Height: 5'3.00" Weight: 140lbs. 0.0oz. 63.373156go; 31.31 BMI Method:Stated Focused Exam Time of Focused Exam: 19:25 Exam Exam Patient acknowledged, consented, and participated in this virtual visit which was conducted using real time audio/video Vital Signs Date Time Temp Pulse Resp B/P (MAP) Pulse Ox O2 Delivery O2 Flow Rate FiO2 03/20/23 08:14 37.6 03/20/23 08:12 106 94/60 03/20/23 08:00 106 94/60 (71) 95 NIV Bilevel 100.00 03/20/23 07:43 35.6 03/20/23 07:30 107 03/20/23 07:00 105 116/58 (77) 92 NIV Bilevel 100.00 03/20/23 06:59 105 21 91 70.00 03/20/23 06:00 100 128/78 (95) 91 NIV Bilevel 100.00 03/20/23 05:00 100 108/55 (72) 94 NIV Bilevel 100.00 03/20/23 04:10 36.6 03/20/23 04:00 92 NIV Bilevel 70 03/20/23 04:00 35.8 100 107/52 (70) 91 NIV Bilevel 100.00 03/20/23 03:00 101 110/52 (71) 92 NIV Bilevel 100.00 03/20/23 02:58 101 21 92 70.00 03/20/23 02:00 101 124/64 (84) 90 NIV Bilevel 100.00 03/20/23 01:00 101 03/20/23 01:00 101 116/57 (76) 92 NIV Bilevel 100.00 03/20/23 00:00 93 NIV Bilevel 70 03/20/23 00:00 36.0 102 131/65 (87) 93 NIV Bilevel 100.00 03/19/23 23:00 105 120/60 (80) 93 NIV Bilevel 100.00 03/19/23 22:38 93 123/95 03/19/23 22:00 93 118/59 (78) 92 NIV Bilevel 100.00 03/19/23 21:00 93 116/60 (78) 99 NIV Bilevel 100.00 03/19/23 20:22 93 123/95 03/19/23 20:00 94 115/61 (79) 99 NIV Bilevel 100.00 03/19/23 20:00 99 NIV Bilevel 70 03/19/23 19:58 36.1 03/19/23 19:00 100 03/19/23 19:00 95 122/67 (85) 99 NIV Bilevel 100.00 03/19/23 18:39 93 20 99 70.00 03/19/23 18:00 93 122/60 (80) 93 NIV Bilevel 100.00 03/19/23 17:08 85 20 95 70.00 03/19/23 17:00 87 109/58 (75) 98 NIV Bilevel 100.00 03/19/23 16:21 98 NIV Bilevel 100 03/19/23 16:00 87 111/60 (77) 100 NIV Bilevel 100.00 03/19/23 15:53 35.3 NIV Bilevel 100.00 03/19/23 15:34 87 20 99 100.00 03/19/23 15:00 86 111/58 (75) 99 NIV Bilevel 100.00 03/19/23 14:00 85 111/59 (76) 94 NIV Bilevel 100.00 03/19/23 13:56 NIV Bilevel 100.00 03/19/23 13:56 86 16 90 100.00 03/19/23 13:01 86 03/19/23 13:00 85 105/60 (75) 78 OxyMask 15.00 03/19/23 12:46 84 95/53 03/19/23 12:15 93 OxyMask 15.00 03/19/23 12:00 86 105/58 (74) 80 OxyMask 15.00 03/19/23 11:50 35.4 OxyMask 15.00 03/19/23 11:00 86 111/59 (76) 82 OxyMask 15.00 03/19/23 10:00 84 117/60 (79) 81 OxyMask 15.00 03/19/23 09:38 77 OxyMask 15.00 03/19/23 09:38 OxyMask 15.00 03/19/23 09:16 78 OxyMask 10.00 03/19/23 09:00 83 117/61 (79) 83 OxyMask 6.00 I & O 03/20/23 06:59 Intake Total 1220.5 ml Output Total 75 ml Balance 1145.5 ml Height & Weight Height: 5'3.00" Weight: 140lbs. 0.0oz. 63.494983ps; 31.31 BMI Method:Stated General Appearance: Chronically ill, Other (ill appearing, does not respond) HEENT: PERRL/EOMI Neck: Full Range of Motion Respiratory: Crackles, Decreased Breath Sounds Cardiovascular: Regular Rate, Rhythm, Irregularly Irregular Capillary Refill: Less Than 3 Seconds Gastrointestinal: normal bowel sounds, non tender, soft Extremity: Normal Capillary Refill, No Pedal Edema, Pedal Edema (DIffuse edmea + 2 in legs) Neurologic/Psychiatric: Other Skin: Normal Color Lymphatic: No Adenopathy Results Lab Laboratory Tests 03/19/23 04:47 03/19/23 19:31 03/19/23 22:34 03/20/23 04:20 Assessment/Plan Assessment/Plan VRE urosepsis, will continue on IV lliniezolid, floconazole Chronic hypercarbic resp failure, will leave on same AVAP settings To be transferred to a higher level of care, [place], [place] Pt is DNR, DNI to be revoked while electively intubated Still has marked coagulapthy with INR 6.4, PT 54.6, got 5 mg IV Vit K, no active bleeeding, will give another 5 mg IV Critical Care: Critically Ill Patient Time spent with patient (mins): 25 TAMIKA RUSSO MD Mar 20, 2023 08:47
[2023-03-20] MEDS ORDERED: METOLAZONE 2.5 MG (ZAROXOLYN) TAB PO ONE (09:00)
[2023-03-20] MEDS ORDERED: METOLAZONE 2.5 MG (ZAROXOLYN) TAB PO SCH (09:00)
[2023-03-20] MEDS: ALBUMIN 25% 25 GM/100 ML 100 ML IV SCH (09:14)
[2023-03-20] MEDS: LINEZOLID 600MG/300ML IVPB (PRE-MIX) IV SCH (09:15)
[2023-03-20] MEDS: DOCUSATE SODIUM 100 MG (COLACE) CAP PO SCH (09:15)
[2023-03-20] MEDS: PANTOPRAZOLE 40 MG (PROTONIX) VIAL IV SCH (09:15)
[2023-03-20] MEDS: SENNOSIDES 8.6 MG (SENOKOT) TAB PO SCH (09:16)
[2023-03-20 10:42] VITALS: BP 101/50
[2023-03-20] MEDS ORDERED: PHYTONADIONE (VIT. K) 10 MG/ML AMP IV ONE (10:45)
--- NOTE | 2023-03-20 11:21 | Cardiology Progress Note ---
Subjective Time Seen by Provider: 11:00 Subjective/Events-last exam Cardiology consultation was initially requested for atrial fibrillation and hypotension. Patient continues to be obtunded. Saturating adequately on BiPAP. Continues to be anuric with only 30 cc urine output past 12 to 18 hours despite furosemide drip. Maintaining sinus rhythm on amiodarone drip. Norepinephrine being used as a pressor. Patient is on antibiotics for enterococcal urosepsis, dose of linezolid light being adjusted by the pharmacy service for acute renal failure. Patient was on therapeutic dose of enoxaparin for DVTs yesterday which was discontinued owing to acute renal shutdown. IV heparin was not started as patient is demonstrating signs of coagulopathy with INR 6.4 this morning. Patient was hypoxic yesterday with oxygen saturation 75% on 15 L Ventimask saturating prior to initiating BiPAP, after which her oxygen saturations have been consistently greater than 95%. 77 year old female with PMH HTN, asthma, SVT, COPD, chronic respiratory failure with hypoxia, DVT/PE, who presented to the emergency room with altered mental status. She had been confused and weak for quite a while according to family. She was found to have a urinary tract infection and is being treated for the same. On 03/17/2023, she was noted to be in atrial fibrillation with rapid ventricular rate. She was started on an amiodarone drip. This resulted in hypotension necessitating the use of low-dose norepinephrine drip. On this regimen, she is tolerating IV amiodarone gtt and has reverted to normal sinus rhythm. Multiple medical problems and hospitalizations since December 2022. In December 2022, she was hospitalized at [facility] with respiratory failure. An extensive workup was unrevealing for the cause of her respiratory failure so she was transferred to [place] in [place]. She was eventually found to have Pseudomonas pneumonia and cavitary abscess. She was treated with Cefepime. Upon discharge, s rosie came to the inpatient rehab unit at [facility]. She was unable to tolerate the therapy and was discharged to [facility]. Hospice was recommended at that time. Her daughter did not think she was getting the therapy she needed so she discharged her and took her home. According to family, she continued to worsen at home. She was taken to the ER on 03/01 and she was treated for dehydration. A UA at that time ended up growing VRE. There was a hospice evaluation scheduled for the following Friday according to the ER note. She returned to the ER on 03/03 and was found to have a DVT/PE. She was transferred to [facility] on 03/04 for thrombectomy. She had continued confusion and weakness according to family. A UA was evantually checked and she was found to have VRE. She was given one dose of IV Linezolid prior to discharge. She was discharged to [facility] on oral Linezolid. She was brought to the [facility] ER and admitted with sepsis due to UTI. Family however, does not want hospice at present and is requesting full care Review of Systems As mentioned in history of present illness Exam Vital Signs Vital Signs Date Time Temp Pulse Resp B/P (MAP) Pulse Ox O2 Delivery O2 Flow Rate FiO2 03/20/23 11:00 105 104/54 (71) 96 NIV Bilevel 100.00 03/20/23 10:42 24 03/20/23 08:14 37.6 03/20/23 04:00 70 Physical Exam S1 and S2 regular. No murmur Chest with diffuse bronchospasm and crackles 2+ bilateral lower extremity edema Jugular venous distention difficult to assess because of BiPAP mask Neurological examination grossly nonfocal Labs Laboratory Tests Test 03/19/23 15:00 03/19/23 16:35 03/19/23 18:35 03/19/23 19:31 Range/Units Blood Gas Puncture Site RIGHT RADIAL RIGHT RADIAL RIGHT RADIAL Blood Gas Patient Temperature 37.0 37.0 35.8 Arterial Blood pH 6.85 *L 6.93 *L 7.00 *L 7.37-7.43 Arterial Blood Partial Pressure CO2 130 *H 105 *H 78 *H 35-45 MMHG Arterial Blood Partial Pressure O2 118 H 139 H 57 L 79-93 MMHG Arterial Blood HCO3 22 L 21 L 19 L 23-27 MMOL/L Arterial Blood Total CO2 25.5 24.0 21.4 21.0-31.0 MMOL/L Arterial Blood Oxygen Saturation 97 101 H 92 L 94-100 % Arterial Blood Base Excess -11.0 L -10.4 L -11.1 L -2.5-2.5 MMOL/L Elvis Test YES-POS YES-POS YES-POS Blood Gas Ventilator Setting YES YES NO Blood Gas Inspired Oxygen 100% 100% 70% Sodium Level 136 135-145 MMOL/L Potassium Level 4.1 3.6-5.0 MMOL/L Chloride Level 110 H 98-107 MMOL/L Carbon Dioxide Level 17 L 21-32 MMOL/L Anion Gap 9 5-14 MMOL/L Blood Urea Nitrogen 8 7-18 MG/DL Creatinine 1.09 0.60-1.30 MG/DL Estimat Glomerular Filtration Rate 52 BUN/Creatinine Ratio 7 Glucose Level 155 H 70-105 MG/DL Calcium Level 7.5 L 8.5-10.1 MG/DL Test 03/19/23 22:34 03/20/23 02:38 03/20/23 04:20 Range/Units White Blood Count 37.0 *H 38.8 *H 4.3-11.0 10^3/uL Red Blood Count 2.62 L 2.28 L 3.80-5.11 10^6/uL Hemoglobin 7.9 L 7.0 L 11.5-16.0 g/dL Hematocrit 26 L 22 L 35-52 % Mean Corpuscular Volume 98 97 80-99 fL Mean Corpuscular Hemoglobin 30 31 25-34 pg Mean Corpuscular Hemoglobin Concent 31 L 32 32-36 g/dL Red Cell Distribution Width 21.9 H 21.9 H 10.0-14.5 % Platelet Count 139 109 L 130-400 10^3/uL Mean Platelet Volume 10.2 10.7 9.0-12.2 fL Percent Immature Platelet Fraction 7.7 H 7.9 H 0.0-7.6 % Activated Partial Thromboplast Time 94 H 97 H 24-35 SEC Immature Granulocyte % (Auto) 10 % Neutrophils (%) (Auto) 80 H 42-75 % Lymphocytes (%) (Auto) 5 L 12-44 % Monocytes (%) (Auto) 4 0-12 % Eosinophils (%) (Auto) 0 0-10 % Basophils (%) (Auto) 0 0-10 % Neutrophils # (Auto) 31.2 H 1.8-7.8 10^3/uL Lymphocytes # (Auto) 1.8 1.0-4.0 10^3/uL Monocytes # (Auto) 1.6 H 0.0-1.0 10^3/uL Eosinophils # (Auto) 0.1 0.0-0.3 10^3/uL Basophils # (Auto) 0.1 0.0-0.1 10^3/uL Immature Granulocyte # (Auto) 4.0 H 0.0-0.1 10^3/uL Prothrombin Time 54.6 *H 12.2-14.7 SEC INR Comment 6.4 *H 0.8-1.4 Blood Gas Puncture Site RRAD Blood Gas Patient Temperature 36.6 Arterial Blood pH 7.08 *L 7.37-7.43 Arterial Blood Partial Pressure CO2 60 H 35-45 MMHG Arterial Blood Partial Pressure O2 57 L 79-93 MMHG Arterial Blood HCO3 17 *L 23-27 MMOL/L Arterial Blood Total CO2 18.9 L 21.0-31.0 MMOL/L Arterial Blood Oxygen Saturation 92 L 94-100 % Arterial Blood Base Excess -11.5 L -2.5-2.5 MMOL/L Elvis Test YES-POS Blood Gas Ventilator Setting NO Blood Gas Inspired Oxygen 70% Sodium Level 136 135-145 MMOL/L Potassium Level 4.0 3.6-5.0 MMOL/L Chloride Level 109 H 98-107 MMOL/L Carbon Dioxide Level 15 L 21-32 MMOL/L Anion Gap 12 5-14 MMOL/L Blood Urea Nitrogen 9 7-18 MG/DL Creatinine 1.23 0.60-1.30 MG/DL Estimat Glomerular Filtration Rate 45 BUN/Creatinine Ratio 7 Glucose Level 145 H 70-105 MG/DL Calcium Level 7.4 L 8.5-10.1 MG/DL Corrected Calcium 7.6 L 8.5-10.1 MG/DL Phosphorus Level 3.5 2.3-4.7 MG/DL Magnesium Level 2.5 H 1.6-2.4 MG/DL Total Bilirubin 3.4 H 0.1-1.0 MG/DL Aspartate Amino Transf (AST/SGOT) 30 5-34 U/L Alanine Aminotransferase (ALT/SGPT) 16 0-55 U/L Alkaline Phosphatase 67 40-136 U/L B-Type Natriuretic Peptide 4500.3 H <100.0 PG/ML Total Protein 4.5 L 6.4-8.2 GM/DL Albumin 3.7 3.2-4.5 GM/DL A/P-Cardiology Admission Diagnosis 1. Multiorgan failure. Acute renal failure, respiratory failure, worsening liver functions, coagulopathy and sepsis. Hypoxia, with increasing oxygen demands and pulmonary edema. Oxygen saturation was 75% on high flow facemask 03/19/2023 but subsequently greater than 95% on BiPAP. Patient's family has decided to continue with full care. Patient is being intubated for better mechanical ventilation, followed by transfer out of town for higher level of care. 2. Urosepsis. Renal dose adjusted linezolid light being administered for enterococcal sepsis 3. Acute renal failure with anuria. Continue IV furosemide 10 mg an hour. IV hydrochlorothiazide ordered in an effort to increase urine output. Significant metabolic acidosis. Patient will need dialysis if considered to be a candidate 4. Recent failure to thrive/recent pulmonary infections. 5. History of supraventricular tachycardia. Continue telemetry monitoring 6. Atrial fibrillation with rapid ventricular rate. Patient has reverted to si nus rhythm. Continue IV amiodarone with low-dose IV norepinephrine as needed. Aware of worsening liver function tests. If liver function tests continue to worsen, amiodarone drip will be stopped 7. Recent DVTs. Patient currently off apixaban and enoxaparin. INR 6.4. We will hold off on anticoagulation Discussed with family at the bedside, hospitalist and RN RACHID MILLAN MD Mar 20, 2023 11:21
[2023-03-20 11:39] VITALS: BP 141/69
--- NOTE | 2023-03-20 11:39 | Discharge Summary ---
Diagnosis/Chief Complaint Date of Admission Mar 14, 2023 at 20:43 Date of Discharge Admission Diagnosis Sepsis due to UTI Primary Care Ester Allred MD Discharge Diagnosis (1) Sepsis Status: Acute (2) Urinary tract infection Status: Acute (3) VRE (vancomycin-resistant Enterococci) infection Status: Acute (4) Septic encephalopathy Status: Acute (5) Debility Status: Acute (6) Severe protein-calorie malnutrition Status: Acute (7) Venous thromboembolism (VTE) present on admission Status: Acute (8) History of recent hospitalization Status: Acute (9) Goals of care, counseling/discussion Status: Acute Discharge Summary Discharge Physical Exam Allergies: Coded Allergies: codeine (Verified Allergy, Unknown, 03/23/08) gatifloxacin (Verified Allergy, Unknown, 03/23/08) nitrofurantoin (Verified Allergy, Unknown, 03/23/08) Vitals & I&Os Vital Signs Date Time Temp Pulse Resp B/P (MAP) Pulse Ox O2 Delivery O2 Flow Rate FiO2 03/20/23 13:55 36.0 03/20/23 13:05 105 03/20/23 13:00 123/52 (75) 100 NIV Bilevel 100.00 03/20/23 12:00 70 03/20/23 11:39 20 General Appearance: Chronically ill Respiratory: Decreased Breath Sounds Cardiovascular: Irregularly Irregular Neurologic/Psychiatric: Other (did not respond, did grimace with pain once when I moved her arm, appearred to track with her eyes when I moved around the bed) Hospital Course Pt was admitted to the ICU due to severe sepsis. She was in the hospital in December due to pneumonia with a presumed pulmonary abscess, treated with Cefepime per ID recommendations. She was discharged to [facility] and then went to [facility]. She went home from there briefly and was readmitted here for bilateral lower extremity DVTs and small PE. She was transferred to [facility] in [place] for DVT clot retrieval and was discharged to SNF on 03/14. Not long after arriving there that day she was referred to the ER due to shortness of breath and altered mentation. She was found to have sepsis due to a VRE urinary tract infection and concern for pneumonia. She was started on broad spectrum antibiotics (linezolid and Zosyn) but despite this continued to worsen. I did repeat urine culture to see if she had cleared this. She was found to have a supratherapeutic INR and because of this her anticoagulation was held. Her bilirubin started to trend up and because of that a liver usg was ordered. This revealed cholelithiasis with concern for acute cholecystitis. Surgery had already been consulted and was contacted regarding this. They discussed with family and recommend conservative management and to continue antibiotics. She then developed new onset atrial fibrillation (has a history of SVT) and was started on amiodarone. This caused her to be hypotensive and she required Levophed. Cardiology consulted for this. She was ultimately switched to dopamine for pressure support. Her respiratory status was worsening as well with increasing oxygen requirement leading to BiPAP dependence. She became more edematous as well. She was given Lasix and Albumin and then transitioned to a lasix gtt. Her creatinine only increased slightly (0.6 to 1.23 in 2 days) but she did develop a metabolic acidosis and became olioguric. Many discussions were had with her family regarding her condition and goals of care. Ultimately they elected to pursue aggressive care and give her "any chance" to get better. She was intubated prior to transfer. Hgb was checked due to blood in ETT and OGT upon intubated and was 5.7. She was transfused 1 unit pRBCs and 1 unit FFP due to her coagulopathy. She was transferred to [facility] for further management and was accepted by Dr Carter. Labs (last 24 hrs) Laboratory Tests 03/19/23 16:35: Blood Gas Puncture Site RIGHT RADIAL, Blood Gas Patient Temperature 37.0, Arterial Blood pH 6.93*L, Arterial Blood Partial Pressure CO2 105*H, Arterial Blood Partial Pressure O2 139H, Arterial Blood HCO3 21L, Arterial Blood Total CO2 24.0, Arterial Blood Oxygen Saturation 101H, Arterial Blood Base Excess - 10.4L, Elvis Test YES-POS, Blood Gas Ventilator Setting YES, Blood Gas Inspired Oxygen 100% 03/19/23 18:35: Blood Gas Puncture Site RIGHT RADIAL, Blood Gas Patient Temperature 35.8, Arterial Blood pH 7.00*L, Arterial Blood Partial Pressure CO2 78*H, Arterial Blood Partial Pressure O2 57L, Arterial Blood HCO3 19L, Arterial Blood Total CO2 21.4, Arterial Blood Oxygen Saturation 92L, Arterial Blood Base Excess -11.1L, Elvis Test YES-POS, Blood Gas Ventilator Setting NO, Blood Gas Inspired Oxygen 70% 03/19/23 19:31: Sodium Level 136, Potassium Level 4.1, Chloride Level 110H, Carbon Dioxide Level 17L, Anion Gap 9, Blood Urea Nitrogen 8, Creatinine 1.09, Estimat Glomerular Filtration Rate 52, BUN/Creatinine Ratio 7, Glucose Level 155H, Calcium Level 7.5L 03/19/23 22:34: White Blood Count 37.0*H, Red Blood Count 2.62L, Hemoglobin 7.9L, Hematocrit 26L , Mean Corpuscular Volume 98, Mean Corpuscular Hemoglobin 30, Mean Corpuscular Hemoglobin Concent 31L, Red Cell Distribution Width 21.9H, Platelet Count 139, Mean Platelet Volume 10.2, Percent Immature Platelet Fraction 7.7H, Activated Partial Thromboplast Time 94H 03/20/23 02:38: Activated Partial Thromboplast Time 97H 03/20/23 04:20: White Blood Count 38.8*H, Red Blood Count 2.28L, Hemoglobin 7.0L, Hematocrit 22L , Mean Corpuscular Volume 97, Mean Corpuscular Hemoglobin 31, Mean Corpuscular Hemoglobin Concent 32, Red Cell Distribution Width 21.9H, Platelet Count 109L, Mean Platelet Volume 10.7, Immature Granulocyte % (Auto) 10, Neutrophils (%) (Auto) 80H, Lymphocytes (%) (Auto) 5L, Monocytes (%) (Auto) 4, Eosinophils (%) (Auto) 0, Basophils (%) (Auto) 0, Neutrophils # (Auto) 31.2H, Lymphocytes # (Auto) 1.8, Monocytes # (Auto) 1.6H, Eosinophils # (Auto) 0.1, Basophils # (Auto) 0.1, Immature Granulocyte # (Auto) 4.0H, Percent Immature Platelet Fraction 7.9H, Prothrombin Time 54.6*H, INR Comment 6.4*H, Blood Gas Puncture Site RRAD, Blood Gas Patient Temperature 36.6, Arterial Blood pH 7.08*L, Ar terial Blood Partial Pressure CO2 60H, Arterial Blood Partial Pressure O2 57L, Arterial Blood HCO3 17*L, Arterial Blood Total CO2 18.9L, Arterial Blood Oxygen Saturation 92L, Arterial Blood Base Excess -11.5L, Elvis Test YES-POS, Blood Gas Ventilator Setting NO, Blood Gas Inspired Oxygen 70%, Sodium Level 136, Potassium Level 4.0, Chloride Level 109H, Carbon Dioxide Level 15L, Anion Gap 12, Blood Urea Nitrogen 9, Creatinine 1.23, Estimat Glomerular Filtration Rate 45, BUN/Creatinine Ratio 7, Glucose Level 145H, Calcium Level 7.4L, Corrected Calcium 7.6L, Phosphorus Level 3.5, Magnesium Level 2.5H, Total Bilirubin 3.4H, Aspartate Amino Transf (AST/SGOT) 30, Alanine Aminotransferase (ALT/SGPT) 16, Alkaline Phosphatase 67, B-Type Natriuretic Peptide 4500.3H, Total Protein 4.5L, Albumin 3.7 03/20/23 11:34: Hemoglobin 5.7*L, Hematocrit 18*L 03/20/23 11:44: Glucometer 197H 03/20/23 11:55: Blood Gas Puncture Site R RAD, Blood Gas Patient Temperature 36.6, Arterial Blood pH 7.17*L, Arterial Blood Partial Pressure CO2 40, Arterial Blood Partial Pressure O2 162H, Arterial Blood HCO3 14*L, Arterial Blood Total CO2 15.1L, Arterial Blood Oxygen Saturation 100, Arterial Blood Base Excess -13.2L, Elvis Test YES-POS, Blood Gas Ventilator Setting NO, Blood Gas Inspired Oxygen 100% Microbiology 03/18/23 Urine Culture - Preliminary, Resulted Probable Enterococcus Species YEAST 03/14/23 MRSA Screen - Final, Complete MRSA not isolated 03/14/23 Blood Culture - Preliminary, Resulted No growth Patient resulted labs reviewed. Pending Labs Laboratory Tests 03/20/23 11:34: Hemoglobin 5.7, Hematocrit 18 03/20/23 11:44: Glucometer 197 03/20/23 11:55: Blood Gas Puncture Site R RAD, Blood Gas Patient Temperature 36.6, Arterial Blood pH 7.17, Arterial Blood Partial Pressure CO2 40, Arterial Blood Partial Pressure O2 162, Arterial Blood HCO3 14, Arterial Blood Total CO2 15.1, Arterial Blood Oxygen Saturation 100, Arterial Blood Base Excess -13.2, Elvis Test YES- POS, Blood Gas Ventilator Setting NO, Blood Gas Inspired Oxygen 100% Imaging: Reviewed Imaging Report Discussion & Recommendations Discharge Planning: >30 minutes discharge planning Discharge Home Medications: Active Scripts Active Reported Vitamin H34-Jupaz Acid Tablet (Cyanocobalamin/Folic Acid) 500 Mcg-400 Mcg Tablet 1 Each PO DAILY Potassium Chloride 20 Meq Packet 20 Meq PO DAILY Pantoprazole Sodium 40 Mg Tablet.dr 40 Mg PO DAILY Naloxone HCl 4 Mg/Actuation [place]esia 4 Mg NS UD PRN MAY REPEAT IN ALTERNATING NOSTRILS EVERY 2-3 MINUTES UNTIL RESPONSIVE OR EMS ARRIVES Metoprolol Succinate 50 Mg Tab.er.24h 50 Mg PO DAILY Ativan (Lorazepam) 0.5 Mg Tablet 0.5 Mg PO Q6H PRN Loratadine Allergy (Loratadine) 5 Mg/5 Ml Solution 5 Mg PO DAILY Lisinopril 10 Mg Tablet 10 Mg PO DAILY Linezolid 600 Mg Tablet 600 Mg PO BID 7 Days Levalbuterol HCl 1.25 Mg/3 Ml Vial.neb 1.25 Mg IH Q6H PRN Hydroxyzine HCl 10 Mg Tablet 10 Mg PO Q8H PRN Hydrocodone-Acetamin 10-325 mg (Hydrocodone/Acetaminophen) 10 Mg-325 Mg Tablet 1 Each PO Q8H PRN Fluconazole 200 Mg Tablet 200 Mg PO DAILY 10 Days Ciproflox-Dexameth Otic Susp (Ciprofloxacin HCl/Dexameth) 0.3 %-0.1 % Drops.susp 4 Drops OT BID 7 Days Aspirin 325 Mg Tablet 325 Mg PO DAILY Eliquis (Apixaban) 5 Mg Tablet 5 Mg PO BID Ventolin Hfa (Albuterol Sulfate) 1 Puff Puff 2 Puff INH Q6H PRN Tylenol Extra Strength (Acetaminophen) 500 Mg Tablet 500 Mg PO Q6H PRN Instructions to patient/family Please see electronic discharge instructions given to patient. Copy Copies To 1: ESTER ALLRED MD Problem Qualifiers (1) Sepsis: Sepsis type: sepsis due to unspecified organism Sepsis acute organ dysfunction status: with acute organ dysfunction Severe sepsis acute organ dysfunction type: encephalopathy Severe sepsis shock status: without septic shock Qualified Codes: A41.9 - Sepsis, unspecified organism; R65.20 - Severe sepsis without septic shock; G93.40 - Encephalopathy, unspecified (2) Urinary tract infection: Urinary tract infection type: catheter-associated UTI Indwelling urinary catheter type: indwelling urethral catheter Encounter type: initial encounter Qualified Codes: T83.511A - Infection and inflammatory reaction due to indwelling urethral catheter, initial encounter; N39.0 - Urinary tract infection, site not specified ARSLAN COHEN MD Mar 20, 2023 11:39
--- NOTE | 2023-03-20 11:55 | Diagnostic Imaging Report ---
Indication: Intubation Frontal chest obtained at 1141 a.m. compared to yesterday ET tube tip overlies mid trachea. NG tube tip overlies stomach. Extensive bilateral infiltrates remain present. There is a moderate size right pleural effusion. There is a trace of left pleural fluid. IMPRESSION: New ET tube and NG tube as above. Extensive bilateral infiltrates again noted with bilateral pleural effusions right greater than left. Dictated by: Dictated on workstation # [id number]
[2023-03-20 12:01] LABS: ABG BASE EXCESS -13.2 MMOL/L (-2.5-2.5); ABG OXYGEN SATURATION 100 % (94-100); ABG PCO2 40 MMHG (35-45); ABG PO2 162 MMHG (79-93); ABG TCO2 15.1 MMOL/L (21.0-31.0)
[2023-03-20 12:03] LABS: HEMOGLOBIN 5.7 g/dL (11.5-16.0)
[2023-03-20 12:04] LABS: ABG PH 7.17 (7.37-7.43); ALLENS TEST YES-POS; INSPIRED O2 100%
[2023-03-20 12:05] LABS: PATIENT TEMP 36.6; VENTILATOR NO
[2023-03-20] MEDS ORDERED: NS IV 500 ML 500 ML IV SCH ×2 (12:15→13:00)
[2023-03-20] MEDS ORDERED: FLUCONAZOLE 100 MG/50 ML IVPB IV SCH ×2 (13:00)
--- NOTE | 2023-03-20 13:18 | Anesthesia-Procedure Note ---
Procedures/Interventions Procedure Start/Stop/Diagnosis Date of Procedure: Mar 20, 2023 Start Time: 11:10 Referring Physician: Esme Brief History Called to ICU8 for urgent intubation. Patient being transferred to [facility]. Report received from RN. Noted INR 6.0 and K 4.0. Blood pressure has been labile at times. Patient given 2mg Versed, 100 mg Etomidate, and 80 Succs. [place] used to intubate x1 attempt with 7.5 ett. BBS, positive color change on etco2 indicator. Noted a large amount of bright red blood pooled in the back of the patient's oropharynx that I suctioned out, but had returned when OG was placed with the use of [place] for visualization of esophagus. CXR ordered for tube placement. Reported off to RN> Stop Time: 11:23 Intubation RSI: Yes 100% pre-Ox, [id number]: Yes Intubation Method: orotracheal Videoscope used: Yes ([place] X blade) Grade View: 1 Medications: Etomidate (10mg), Succinylcholine (80mg), Versed (2mg) Positive End Tide CO2: Yes Breath Sounds after Intubation: bilateral-equal ETT Securred @ (cm): 23 Intubated with ease: Yes Intubation Complications: no complications Post Intubation Xray-done: Yes AZALEA SINGH CRNA Mar 20, 2023 13:18
[2023-03-20] MEDS ORDERED: ETOMIDATE IV SOLN 20 MG/10 ML VIAL IV ONE (13:53)
[2023-03-20] MEDS ORDERED: SUCCINYLCHOLINE INJ 20 MG/1 ML 10 ML VIAL INJ ONE (13:53)
[2023-03-20] MEDS ORDERED: MIDAZOLAM 5 MG/5 ML (VERSED) VIAL INJ ONE (13:53)
--- NOTE | 2023-03-20 15:00 | Discharge Summary ---
Diagnosis/Chief Complaint Date of Admission Mar 14, 2023 at 20:43 Date of Discharge Admission Diagnosis Sepsis due to UTI Primary Care Tim Michael MD Discharge Diagnosis (1) Sepsis Status: Acute (2) Urinary tract infection Status: Acute (3) VRE (vancomycin-resistant Enterococci) infection Status: Acute (4) Septic encephalopathy Status: Acute (5) Debility Status: Acute (6) Severe protein-calorie malnutrition Status: Acute (7) Venous thromboembolism (VTE) present on admission Status: Acute (8) History of recent hospitalization Status: Acute (9) Goals of care, counseling/discussion Status: Acute Discharge Summary Discharge Physical Exam Allergies: Coded Allergies: codeine (Verified Allergy, Unknown, 03/23/08) gatifloxacin (Verified Allergy, Unknown, 03/23/08) nitrofurantoin (Verified Allergy, Unknown, 03/23/08) Vitals & I&Os Vital Signs Date Time Temp Pulse Resp B/P (MAP) Pulse Ox O2 Delivery O2 Flow Rate FiO2 03/20/23 13:55 36.0 03/20/23 13:05 105 03/20/23 13:00 123/52 (75) 100 NIV Bilevel 100.00 03/20/23 12:00 70 03/20/23 11:39 20 Hospital Course Labs (last 24 hrs) Laboratory Tests 03/19/23 16:35: Blood Gas Puncture Site RIGHT RADIAL, Blood Gas Patient Temperature 37.0, Ar terial Blood pH 6.93*L, Arterial Blood Partial Pressure CO2 105*H, Arterial Blood Partial Pressure O2 139H, Arterial Blood HCO3 21L, Arterial Blood Total CO2 24.0, Arterial Blood Oxygen Saturation 101H, Arterial Blood Base Excess - 10.4L, Elvis Test YES-POS, Blood Gas Ventilator Setting YES, Blood Gas Inspired Oxygen 100% 03/19/23 18:35: Blood Gas Puncture Site RIGHT RADIAL, Blood Gas Patient Temperature 35.8, Arterial Blood pH 7.00*L, Arterial Blood Partial Pressure CO2 78*H, Arterial Blood Partial Pressure O2 57L, Arterial Blood HCO3 19L, Arterial Blood Total CO2 21.4, Arterial Blood Oxygen Saturation 92L, Arterial Blood Base Excess -11.1L, Elvis Test YES-POS, Blood Gas Ventilator Setting NO, Blood Gas Inspired Oxygen 70% 03/19/23 19:31: Sodium Level 136, Potassium Level 4.1, Chloride Level 110H, Carbon Dioxide Level 17L, Anion Gap 9, Blood Urea Nitrogen 8, Creatinine 1.09, Estimat Glomerular Filtration Rate 52, BUN/Creatinine Ratio 7, Glucose Level 155H, Calcium Level 7.5L 03/19/23 22:34: White Blood Count 37.0*H, Red Blood Count 2.62L, Hemoglobin 7.9L, Hematocrit 26L , Mean Corpuscular Volume 98, Mean Corpuscular Hemoglobin 30, Mean Corpuscular Hemoglobin Concent 31L, Red Cell Distribution Width 21.9H, Platelet Count 139, Mean Platelet Volume 10.2, Percent Immature Platelet Fraction 7.7H, Activated Partial Thromboplast Time 94H 03/20/23 02:38: Activated Partial Thromboplast Time 97H 03/20/23 04:20: White Blood Count 38.8*H, Red Blood Count 2.28L, Hemoglobin 7.0L, Hematocrit 22L , Mean Corpuscular Volume 97, Mean Corpuscular Hemoglobin 31, Mean Corpuscular Hemoglobin Concent 32, Red Cell Distribution Width 21.9H, Platelet Count 109L, Mean Platelet Volume 10.7, Immature Granulocyte % (Auto) 10, Neutrophils (%) (Auto) 80H, Lymphocytes (%) (Auto) 5L, Monocytes (%) (Auto) 4, Eosinophils (%) (Auto) 0, Basophils (%) (Auto) 0, Neutrophils # (Auto) 31.2H, Lymphocytes # (Auto) 1.8, Monocytes # (Auto) 1.6H, Eosinophils # (Auto) 0.1, Basophils # (Auto) 0.1, Immature Granulocyte # (Auto) 4.0H, Percent Immature Platelet Fraction 7.9H, Prothrombin Time 54.6*H, INR Comment 6.4*H, Blood Gas Puncture Site RRAD, Blood Gas Patient Temperature 36.6, Arterial Blood pH 7.08*L, Arterial Blood Partial Pressure CO2 60H, Arterial Blood Partial Pressure O2 57L, Arterial Blood HCO3 17*L, Arterial Blood Total CO2 18.9L, Arterial Blood Oxygen Saturation 92L, Arterial Blood Base Excess -11.5L, Elvis Test YES-POS, Blood Gas Ventilator Setting NO, Blood Gas Inspired Oxygen 70%, Sodium Level 136, Potassium Level 4.0, Chloride Level 109H, Carbon Dioxide Level 15L, Anion Gap 12, Blood Urea Nitrogen 9, Creatinine 1.23, Estimat Glomerular Filtration Rate 45, BUN/Creatinine Ratio 7, Glucose Level 145H, Calcium Level 7.4L, Corrected Calcium 7.6L, Phosphorus Level 3.5, Magnesium Level 2.5H, Total Bilirubin 3.4H, Aspartate Amino Transf (AST/SGOT) 30, Alanine Aminotransferase (ALT/SGPT) 16, Alkaline Phosphatase 67, B-Type Natriuretic Peptide 4500.3H, Total Protein 4.5L, Albumin 3.7 03/20/23 11:34: Hemoglobin 5.7*L, Hematocrit 18*L 03/20/23 11:44: Glucometer 197H 03/20/23 11:55: Blood Gas Puncture Site R RAD, Blood Gas Patient Temperature 36.6, Arterial Blood pH 7.17*L, Arterial Blood Partial Pressure CO2 40, Arterial Blood Partial Pressure O2 162H, Arterial Blood HCO3 14*L, Arterial Blood Total CO2 15.1L, Arterial Blood Oxygen Saturation 100, Arterial Blood Base Excess -13.2L, Elvis Test YES-POS, Blood Gas Ventilator Setting NO, Blood Gas Inspired Oxygen 100% Microbiology 03/18/23 Urine Culture - Preliminary, Resulted Probable Enterococcus Species YEAST 03/14/23 MRSA Screen - Final, Complete MRSA not isolated 03/14/23 Blood Culture - Preliminary, Resulted No growth Patient resulted labs reviewed. Pending Labs Laboratory Tests 03/20/23 11:34: Hemoglobin 5.7, Hematocrit 18 03/20/23 11:44: Glucometer 197 03/20/23 11:55: Blood Gas Puncture Site R RAD, Blood Gas Patient Temperature 36.6, Arterial Blood pH 7.17, Arterial Blood Partial Pressure CO2 40, Arterial Blood Partial Pressure O2 162, Arterial Blood HCO3 14, Arterial Blood Total CO2 15.1, Arterial Blood Oxygen Saturation 100, Arterial Blood Base Excess -13.2, Elvis Test YES- POS, Blood Gas Ventilator Setting NO, Blood Gas Inspired Oxygen 100% Imaging: Reviewed Imaging Report Discharge Home Medications: Active Scripts Active Reported Vitamin R49-Nygci Acid Tablet (Cyanocobalamin/Folic Acid) 500 Mcg-400 Mcg Tablet 1 Each PO DAILY Potassium Chloride 20 Meq Packet 20 Meq PO DAILY Pantoprazole Sodium 40 Mg Tablet.dr 40 Mg PO DAILY Naloxone HCl 4 Mg/Actuation Adams 4 Mg NS UD PRN MAY REPEAT IN ALTERNATING NOSTRILS EVERY 2-3 MINUTES UNTIL RESPONSIVE OR EMS ARRIVES Metoprolol Succinate 50 Mg Tab.er.24h 50 Mg PO DAILY Ativan (Lorazepam) 0.5 Mg Tablet 0.5 Mg PO Q6H PRN Loratadine Allergy (Loratadine) 5 Mg/5 Ml Solution 5 Mg PO DAILY Lisinopril 10 Mg Tablet 10 Mg PO DAILY Linezolid 600 Mg Tablet 600 Mg PO BID 7 Days Levalbuterol HCl 1.25 Mg/3 Ml Vial.neb 1.25 Mg IH Q6H PRN Hydroxyzine HCl 10 Mg Tablet 10 Mg PO Q8H PRN Hydrocodone-Acetamin 10-325 mg (Hydrocodone/Acetaminophen) 10 Mg-325 Mg Tablet 1 Each PO Q8H PRN Fluconazole 200 Mg Tablet 200 Mg PO DAILY 10 Days Ciproflox-Dexameth Otic Susp (Ciprofloxacin HCl/Dexameth) 0.3 %-0.1 % Drops.susp 4 Drops OT BID 7 Days Aspirin 325 Mg Tablet 325 Mg PO DAILY Eliquis (Apixaban) 5 Mg Tablet 5 Mg PO BID Ventolin Hfa (Albuterol Sulfate) 1 Puff Puff 2 Puff INH Q6H PRN Tylenol Extra Strength (Acetaminophen) 500 Mg Tablet 500 Mg PO Q6H PRN Instructions to patient/family Please see electronic discharge instructions given to patient. Problem Qualifiers (1) Sepsis: Sepsis type: sepsis due to unspecified organism Sepsis acute organ dysfunction status: with acute organ dysfunction Severe sepsis acute organ dysfunction type: encephalopathy Severe sepsis shock status: without septic shock Qualified Codes: A41.9 - Sepsis, unspecified organism; R65.20 - Severe sepsis without septic shock; G93.40 - Encephalopathy, unspecified (2) Urinary tract infection: Urinary tract infection type: catheter-associated UTI Indwelling urinary catheter type: indwelling urethral catheter Encounter type: initial encounter Qualified Codes: T83.511A - Infection and inflammatory reaction due to indwelling urethral catheter, initial encounter; N39.0 - Urinary tract infec tion, site not specified ARSLAN COHEN MD Mar 20, 2023 15:00
[2023-03-20] MEDS ORDERED: LINEZOLID IV SCH ×2 (21:00)
[2023-03-21] MEDS ORDERED: SCOPOLAMINE PATCH REMOVAL TP SCH (13:29)
== END 2023-03-20 14:20 | disposition short-term general hospital (02) | DRG 871 ==
LOC: EDUNIT# 16:57 → ER 16:59 → ICU 20:43
PROVIDERS: ADMIT Internal Medicine; ATTEND Internal Medicine
PROC: 06HN33Z Insertion of Infusion Device into Left Femoral Vein, Percutaneous Approach (ICD-10-PCS; principal; 2023-03-15)
PROC: 5A09357 Assistance with Respiratory Ventilation, Less than 24 Consecutive Hours, Continuous Positive Airway Pressure (ICD-10-PCS; 2023-03-19)
PROC: 5A1935Z Respiratory Ventilation, Less than 24 Consecutive Hours (ICD-10-PCS; 2023-03-20)
PROC: 0BH17EZ Insertion of Endotracheal Airway into Trachea, Via Natural or Artificial Opening (ICD-10-PCS; 2023-03-20)
DX: A41.81 Sepsis due to Enterococcus (principal); E43 Unspecified severe protein-calorie malnutrition; G93.41 Metabolic encephalopathy; J15.1 Pneumonia due to Pseudomonas; Z16.21 Resistance to vancomycin; N39.0 Urinary tract infection, site not specified; J96.11 Chronic respiratory failure with hypoxia; J44.0 Chronic obstructive pulmonary disease with (acute) lower respiratory infection; Z66 Do not resuscitate; J44.1 Chronic obstructive pulmonary disease with (acute) exacerbation; N17.9 Acute kidney failure, unspecified; J96.12 Chronic respiratory failure with hypercapnia; B37.49 Other urogenital candidiasis; K80.12 Calculus of gallbladder with acute and chronic cholecystitis without obstruction; F05 Delirium due to known physiological condition; R65.20 Severe sepsis without septic shock; H66.91 Otitis media, unspecified, right ear; R34 Anuria and oliguria; I48.91 Unspecified atrial fibrillation; D64.9 Anemia, unspecified; K76.0 Fatty (change of) liver, not elsewhere classified; I10 Essential (primary) hypertension; I95.9 Hypotension, unspecified; Z68.26 Body mass index [BMI] 26.0-26.9, adult; Z79.01 Long term (current) use of anticoagulants
CPT/HCPCS: 36415; 36600; 71045; 76705; 80048; 80053; 81000; 82140; 82607; 82728; 82746; 82805; 82947; 83540; 83550; 83605; 83735; 83880; 84100; 84484; 85007; 85014; 85018; 85025; 85027; 85610; 85730; 86141; 86850; 86900; 86901; 86920; 87040; 87077; 87081; 87088; 87186; 93005; 93041; 94002; 94640; 94660; 94664; 94799